=== PATIENT | female | born 1945 | race Caucasian/White ===

== ENCOUNTER 2016-11-01 10:58 | Inpatient (IN) | payer MEDICARE, OTHER ==
[~2016-11-01] VITALS: Ht 162.6 cm; Wt 80.1 kg
[~2016-11-01 10:58] MED LIST: ACET-703 PO; ALPR0.5T3 PO; ARMO60TA PO; BUDE2SUS4 NEB; BUPR100T4 PO; ESTR1DIS2 T-DERMAL; HYDR-3111 PO; IPRAAER INH; MONT10TA4 PO; OXYGEN NAS.CANULA; PRED5TAB PO; TEMA15CA PO; TRAM50TA PO; XOLA150S SQ
[2016-11-01 11:00] VITALS: BP 96/50; PULSE 74; RESP 14; TEMP 98.1; O2SAT 91
[2016-11-01] MEDS ORDERED: LEVOTAB PO (11:17)
[2016-11-01] MEDS ORDERED: oxygen INH (11:17)
[2016-11-01] MEDS ORDERED: MECL1TAB42 PO (11:17)
[2016-11-01] MEDS ORDERED: ALBUAER3 INH (11:17)
[2016-11-01] MEDS ORDERED: ARMO120T PO (11:17)
[2016-11-01] MEDS ORDERED: LIBRAX PO (11:17)
[2016-11-01] MEDS ORDERED: ONDA4TAB6 PO (11:17)
[2016-11-01] MEDS ORDERED: MORPHINE SULFATE 4 MG/ML INJ IV PUSH ONE ×2 (11:30→13:15)
[2016-11-01] MEDS ORDERED: SODIUM CHLORIDE 0.9% FLUSH 5 ML FLUSH IVF PRN (11:30)
--- NOTE | 2016-11-01 11:33 | PD ---
HPI Chief Complaint: Back/ Neck Pain or Injury Time Seen by Provider: 11:14 Travel History International Travel<30 days: No Contact w/Intl Traveler<30days: No Traveled to known affect area: No History of Present Illness HPI 71-year-old female with history of pulmonary fibrosis on home O2, osteoarthritis with neck and lumbar spine surgeries, brought in by private vehicle for evaluation of neck and low back pain after a fall that occurred this morning. The patient reports that her left leg gave out on her. She landed striking her right neck and lower back. She denies head injury or LOC. She is not on any antiplatelets or anticoagulants. No paresthesias or motor deficits. Pain is moderate, constant, worse with movement and palpation. No pain in any other joint or extremity. The patient is refusing cervical collar. Patient reports having a cough which was treated with antibiotics, however is persistent. No chest pain. PFSH Past Medical History Asthma: Yes Cancer: No Cardiovascular Problems: Yes COPD: Yes Diabetes: No Endocrine: No Gastrointestinal Disorders: Yes (reflux) Genitourinary: No Hepatitis: No Hiatal Hernia: Yes Hypertension: Yes Immune Disorder: No Medical other: Yes (hemochromotosis) Musculoskeletal: Yes (neck) Neurologic: Yes (mild numbness and tingling in both upper extremities) Psychiatric: No Reproductive: No Respiratory: Yes Thyroid Disease: No Past Surgical History Abdominal Surgery: Yes (lap flor hernia repair ) Appendectomy: Yes Body Medical Devices: lower back and neck Gynecologic Surgery: Yes (complete hysterectomy) Hysterectomy: Yes Neurologic Surgery: Yes (97'C4-5 ANTERIOR FUSION;99' C6-7 ANTERIOR FUSION, lumbar fusion) Oral Surgery: Yes (90' LEFT SALIVARY GLAND REMOVED ; SINSUS SX) Pacemaker: No Thoracic Surgery: Yes (kailyn mastitis which was drained) Other Surgery: Yes (breast reduction) Social History Alcohol Use: Yes (daily) Tobacco Use: No Substance Use: No Allergies-Medications (Allergen,Severity, Reaction): Coded Allergies: Betadine (Verified Allergy, Mild, Rash, 09/25/16) Uncoded Allergies: IODINE PAINT (Allergy, Severe, Rash, 06/30/12) Reported Meds & Prescriptions Reported Meds & Active Scripts Active Reported Proair Hfa 8.5 GM Inh (Albuterol Sulfate) 90 Mcg/Act Aer 1 Puff INH Q4H PRN 108 mcg/actuation Meclizine 25 (Meclizine HCl) 25 Mg Tab 1 Tab PO TID Ondansetron HCl 4 Mg Tab 1 Tab PO DAILY Librax (Chlordiazepoxide/Clidinium) 5-2.5 Mg Cap 1 Cap PO DAILY PRN [oxygen] 1 Inhaler INH DAILY Levocetirizine 5 Mg Tab 5 Mg PO DAILY [place] Thyroid (Thyroid) 120 Mg Tab 120 Mg PO DAILY Alprazolam 0.5 Mg Tab 0.5 Mg PO BID PRN Budesonide Neb 1 Mg/2 Ml Neb 0.5 Mg NEB BID Bupropion HCl 100 Mg Tab 150 Mg PO BID Combivent Respimat Inh (Ipratropium-Albuterol Inh) 20-100 Assisted/Act Aero 1 Puff INH BID Estradiol Patch 84 HR (Estradiol) 0.1 Mg/24 Hr Patch 1 Patch T-DERMAL Q7D PRN Remove old patch and discard when new patch being placed.Change same days each week. Vicodin (Hydrocodone-Acetaminophen) 5-300 Mg Tab 2 Tab PO Q6H PRN Montelukast (Montelukast Sodium) 10 Mg Tab 10 Mg PO HS Xolair Inj (Omalizumab) 150 Mg Vial 150 Mg SQ MONTHLY Prednisone 5 Mg Tab 5-10 Mg PO DAILY PRN Temazepam 15 Mg Cap 15 Mg PO HS PRN Tramadol (Tramadol HCl) 50 Mg Tab 50 Mg PO Q6H PRN Review of Systems Except as stated in HPI: all other systems reviewed are Neg Physical Exam Narrative GENERAL: Well-developed, well-nourished, awake, alert, no acute distress, GCS 15. SKIN: Warm and dry. Ecchymosis to right posterior neck. No lacerations or abrasions. HEAD: Atraumatic. Normocephalic. EYES: Pupils equal, round, 3 mm, reactive to light. EOMI. No scleral icterus. No injection or drainage. ENT: Mucous membranes pink and moist. NECK: Trachea midline. No JVD. There is midline cervical spine tenderness without obvious step-off. CARDIOVASCULAR: Regular rate and rhythm. Distal pulses brisk and equal bilaterally. RESPIRATORY: No accessory muscle use. Clear to auscultation. Breath sounds equal bilaterally. GASTROINTESTINAL: Abdomen soft, non-tender, nondistended. MUSCULOSKELETAL: No obvious deformities. No clubbing. No cyanosis. No edema. Normal range of motion in all joints and extremities with tenderness to right posterior lateral neck with ecchymosis. There is also lumbar spine tenderness without obvious step-off. The rest of her joints and extremities are without deformity, without tenderness, with normal range of motion. NEUROLOGICAL: Awake and alert. No obvious cranial nerve deficits. Motor grossly within normal limits. Normal speech. No focal deficits. PSYCHIATRIC: Appropriate mood and affect; insight and judgment normal. Data Data Last Documented VS Vital Signs Date Time Temp Pulse Resp B/P Pulse Ox O2 Delivery O2 Flow Rate FiO2 11/01/16 13:00 77 16 119/66 99 Nasal Cannula 2 11/01/16 11:00 98.1 Orders Basic Metabolic Panel (Bmp) (11/01/16 11:25) Complete Blood Count With Diff (11/01/16 11:25) Prothrombin Time / Inr (Pt) (11/01/16 11:25) Act Partial Throm Time (Ptt) (11/01/16 11:25) Iv Access Insert/Monitor (11/01/16 11:25) Ecg Monitoring (11/01/16 11:25) Oximetry (11/01/16 11:25) Sodium Chloride 0.9% Flush (Ns Flush) (11/01/16 11:30) Chest, Single Ap (11/01/16 ) Shoulder, Complete (>2vws) (11/01/16 ) Ct Brain W/O Iv Contrast(Rout) (11/01/16 ) Ct Cerv Spine W/O Contrast (11/01/16 ) Ct Thor Spine W/O Contrast (11/01/16 ) Ct Lumb Spine W/O Contrast (11/01/16 ) Influenzae A/B Antigen (11/01/16 11:25) Morphine Inj (Morphine Inj) (11/01/16 11:30) Apply Cervical Collar (11/01/16 12:52) Morphine Inj (Morphine Inj) (11/01/16 13:15) Consult Neurosurgery (11/01/16 ) (Hub Use Only)Inp Phy Cons/Ref (11/01/16 ) Labs Laboratory Tests Test 11/01/16 11:32 White Blood Count 8.3 TH/MM3 Red Blood Count 4.23 MIL/MM3 Hemoglobin 14.1 GM/DL Hematocrit 41.4 % Mean Corpuscular Volume 97.7 FL Mean Corpuscular Hemoglobin 33.4 PG Mean Corpuscular Hemoglobin 34.2 % Concent Red Cell Distribution Width 13.2 % Platelet Count 231 TH/MM3 Mean Platelet Volume 7.5 FL Neutrophils (%) (Auto) 52.3 % Lymphocytes (%) (Auto) 35.8 % Monocytes (%) (Auto) 9.6 % Eosinophils (%) (Auto) 1.9 % Basophils (%) (Auto) 0.4 % Neutrophils # (Auto) 4.3 TH/MM3 Lymphocytes # (Auto) 3.0 TH/MM3 Monocytes # (Auto) 0.8 TH/MM3 Eosinophils # (Auto) 0.2 TH/MM3 Basophils # (Auto) 0.0 TH/MM3 CBC Comment DIFF FINAL Differential Comment Prothrombin Time 10.1 SEC Prothromb Time International 0.9 RATIO Ratio Activated Partial 25.4 SEC Thromboplast Time Sodium Level 137 MEQ/L Potassium Level 3.4 MEQ/L Chloride Level 101 MEQ/L Carbon Dioxide Level 27.9 MEQ/L Anion Gap 8 MEQ/L Blood Urea Nitrogen 7 MG/DL Creatinine 0.74 MG/DL Estimat Glomerular Filtration 78 ML/MIN Rate Random Glucose 98 MG/DL Calcium Level 8.4 MG/DL [facility] Medical Decision Making Medical Screen Exam Complete: Yes Emergency Medical Condition: Yes Medical Record Reviewed: Yes Differential Diagnosis Spinal injury, intracranial trauma, contusion, mechanical fall Narrative Course Vital signs show heart rate 74, blood pressure 96/50, pulse ox 91% on room air, oral temp of 98.1F. CBC is unremarkable. BMP is essentially unremarkable. Influenza is negative. I was called by reading radiologist and informed that the patient has a C7 fracture. Patient was agreeable to cervical Mesa collar after this reading. CT head read as normal exam. CT cervical spine: CONCLUSION: There are oblique fractures through the base of the pedicles of both sides of the C7 vertebral body. There is also a comminuted fracture involving the inferior end plate of T1 which is not significantly displaced only loosing 10% of its original vertebral body height. The C7 fractures extend into the facet joints superiorly and the right side of the facet may be perched on the fracture. The C6 lamina is slightly anterior to the majority of the facet joint. CT thoracic spine: CONCLUSION: Comminuted fracture involving the anterior inferior endplate of T1 with approximately 10-20% loss of height. CT lumbar spine: CONCLUSION: Questionable fracture through the very anterior osteophyte associated with a Schmorl's node of the L2 vertebral body on the right. Previous fusion from L4 to S1 without complications . Case discussed with on-call orthopedic surgeon Dr. Torres who is covering for Dr. Voss. He discussed findings with Dr. Voss and prefers neurosurgery to be consulted regarding C7 fracture. Case discussed with on-call neurosurgeon Dr. Bowden. He will see the patient in consultation. Patient will be admitted for pain control. He agrees with current management with Mesa collar. The patient and the patient's were made aware of all findings and plan for admission. Case discussed with hospitalist Dr. Smiley who will admit the patient to his service. Diagnosis Primary Impression: C7 cervical fracture Qualified Code: S12.690A - Other closed displaced fracture of seventh cervical vertebra, initial encounter Additional Impressions: T1 vertebral fracture Qualified Code: S22.018A - Other closed fracture of first thoracic vertebra, initial encounter Fall Qualified Code: W19.XXXA - Fall, initial encounter Admitting Information Admitting Physician Requests: Admit Tomy Garcia MD Nov 01, 2016 11:33
[2016-11-01 11:49] LABS: AUTOMATED NEUTROPHIL # 4.3 TH/MM3 (1.8-7.7); BASOPHIL % 0.4 % (0.0-2.0); EOSINOPHIL # 0.2 TH/MM3 (0-0.4); EOSINOPHIL % 1.9 % (0.0-4.0); HEMATOCRIT 41.4 % (35.0-46.0); HEMO FLAGS DIFF FINAL; LYMPH % 35.8 % (9.0-44.0); MEAN CELL VOLUME 97.7 FL (80.0-100.0); MEAN CORPUSCULAR HEMOGLOBIN 33.4 PG (27.0-34.0); MEAN CORPUSCULAR HGB CONC 34.2 % (32.0-36.0); MONO % 9.6 % (0.0-8.0); NEUT % 52.3 % (16.0-70.0); PLATELET COUNT 231 TH/MM3 (150-450); RED BLOOD COUNT 4.23 MIL/MM3 (4.00-5.30); RED CELL DISTRIBUTION WIDTH 13.2 % (11.6-17.2); WHITE BLOOD COUNT 8.3 TH/MM3 (4.0-11.0)
[2016-11-01 11:58] LABS: APTT (PATIENT) 25.4 SEC (24.3-30.1); INTERNATIONAL NORMALIZED RATIO 0.9 RATIO; PROTHROMBIN TIME - PATIENT 10.1 SEC (9.8-11.6)
--- NOTE | 2016-11-01 12:02 | RADRPT ---
EXAM DATE/TIME: 11/01/2016 11:44 [facility] COMPARISON: No previous studies available for comparison. INDICATIONS : Right shoulder pain from fall. MEDICAL HISTORY : None. SURGICAL HISTORY : None. ENCOUNTER: Initial ACUITY: 1 day PAIN SCORE: 3/10 LOCATION: Right shoulder. FINDINGS: Multiple view examination of the right shoulder demonstrates no evidence of fracture or dislocation. The glenohumeral and acromioclavicular joints are maintained. There is normal range of motion betwe en internal and external rotation. Bony mineralization is normal. CONCLUSION: Unremarkable examination of the right shoulder. Favio Becerril MD on November 01, 2016 at 12:00 Board Certified Radiologist. This report was verified electronically.
[2016-11-01 12:04] LABS: BICARBONATE 27.9 MEQ/L (21.0-32.0); POTASSIUM 3.4 MEQ/L (3.5-5.1)
--- NOTE | 2016-11-01 12:05 | RADRPT ---
EXAM DATE/TIME: 11/01/2016 11:50 [facility] COMPARISON: No previous studies available for comparison. INDICATIONS : Cephalgia, fell on tile floor. RADIATION DOSE: 56.35 CTDIvol (mGy) MEDICAL HISTORY : None SURGICAL HISTORY : Fusion, cervical. Fusion, lumbar. ENCOUNTER: Initial ACUITY: 1 day PAIN SCALE: 5/10 LOCATION: cranial TECHNIQUE: Multiple contiguous axial images were obtained of the head. Using automated exposure control and adj ustment of the mA and/or kV according to patient size, radiation dose was kept as low as reasonably a chievable to obtain optimal diagnostic quality images. FINDINGS: CEREBRUM: The ventricles are normal for age. No evidence of midline shift, mass lesion, hemorrhage or acute in farction. No extra-axial fluid collections are seen. POSTERIOR FOSSA: The cerebellum and brainstem are intact. The 4th ventricle is midline. The cerebellopontine angle i s unremarkable. EXTRACRANIAL: The visualized portion of the orbits is intact. SKULL: The calvaria is intact. No evidence of skull fracture. CONCLUSION: Normal examination. Favio Becerril MD on November 01, 2016 at 12:03 Board Certified Radiologist. This report was verified electronically.
--- NOTE | 2016-11-01 12:08 | RADRPT ---
EXAM DATE/TIME: 11/01/2016 11:48 [facility] COMPARISON: Prior study 10/16/2014 used for comparison. INDICATIONS : Shortness of breath. MEDICAL HISTORY : Chronic obstructive pulmonary disease. SURGICAL HISTORY : None. ENCOUNTER: Initial ACUITY: 1 day PAIN SCORE: 0/10 LOCATION: Bilateral chest FINDINGS: A single view of the chest demonstrates there are patchy interstitial infiltrates throughout the lung s, stable form the previous study. Central line has been removed. The patient has previous cervical fusion. CONCLUSION: PATCHY INTERSTITIAL DISEASE THROUGHOUT THE LUNGS. NO PNEUMOTHORAX. Favio Becerril MD on November 01, 2016 at 12:02 Board Certified Radiologist. This report was verified electronically.
--- NOTE | 2016-11-01 12:54 | RADRPT ---
EXAM DATE/TIME: 11/01/2016 11:55 [facility] COMPARISON: No previous studies available for comparison. INDICATIONS : Fell on tile floor, upper back pain. RADIATION DOSE: 18.40 CTDIvol (mGy) ; Combined studies MEDICAL HISTORY : None SURGICAL HISTORY : Fusion, cervical. Fusion, lumbar. ENCOUNTER: Initial ACUITY: 1 day PAIN SCALE: 5/10 LOCATION: upper chest TECHNIQUE: Volumetric scanning of the thoracic spine was performed. Multiplanar reconstructions in the sagittal , coronal and oblique axial planes were performed. Using automated exposure control and adjustment o f the mA and/or kV according to patient size, radiation dose was kept as low as reasonably achievable to obtain optimal diagnostic quality images. FINDINGS: The vertebral bodies of the thoracic spine are in normal alignment without evidence of subluxation. Vertebral body height is maintained. Slightly comminuted inferior plate fracture of L. T1 anteriorly. T1-T2: THERE IS A MILDLY COMMINUTED FRACTURE INVOLVING THE INFERIOR ENDPLATE OF T1. T2-T3: The thecal sac has a normal diameter. No evidence of disc bulge or protrusion. T3-T4: The thecal sac has a normal diameter. No evidence of disc bulge or protrusion. T4-T5: The thecal sac has a normal diameter. No evidence of disc bulge or protrusion. T5-T6: The thecal sac has a normal diameter. No evidence of disc bulge or protrusion. T6-T7: The thecal sac has a normal diameter. No evidence of disc bulge or protrusion. T7-T8: The thecal sac has a normal diameter. No evidence of disc bulge or protrusion. T8-T9: The thecal sac has a normal diameter. No evidence of disc bulge or protrusion. T9-T10: The thecal sac has a normal diameter. No evidence of disc bulge or protrusion. T10-T11: The thecal sac has a normal diameter. No evidence of disc bulge or protrusion. T11-T12: The thecal sac has a normal diameter. No evidence of disc bulge or protrusion. T12-L1: The thecal sac has a normal diameter. No evidence of disc bulge or protrusion. CONCLUSION: Comminuted fracture involving the anterior inferior endplate of T1 with approximately 10-20% loss of height. Favio Becerril MD on November 01, 2016 at 12:52 Board Certified Radiologist. This report was verified electronically.
--- NOTE | 2016-11-01 12:59 | RADRPT ---
EXAM DATE/TIME: 11/01/2016 11:55 [facility] COMPARISON: No previous studies available for comparison. INDICATIONS : Fell on tile floor, lower back pain. Trauma. RADIATION DOSE: 18.40 CTDIvol (mGy) ; Combined studies MEDICAL HISTORY : None SURGICAL HISTORY : Fusion, cervical. Fusion, lumbar. ENCOUNTER: Initial ACUITY: 1 day PAIN SCALE: 5/10 LOCATION: lower back TECHNIQUE: Volumetric scanning of the lumbar spine was performed. Multiplanar reconstructions in the sagittal, coronal and oblique axial planes were performed. Using automated exposure control and adjustment of the mA and/or kV according to patient size, radiation dose was kept as low as reasonably achievable t o obtain optimal diagnostic quality images. FINDINGS: CT scan of the lumbar spine demonstrates there is some loss of height of the superior end plate of L2 on the right. It is associated with a Schmorl's node but there is some lucencies involving the promi nent anterior osteophyte that could be a non-displaced fracture. Posteriorly the vertebral end plate s is intact. The patient has had previous fusion from L4 to L5. There is a large intervertebral cag e at L5-S1 without complication. Coronal formats again show fusion from L4 to S1 without evidence of end plate fracture. There is a m ild leftward lumbar scoliosis. The prevertebral soft tissues are normal. CONCLUSION: Questionable fracture through the very anterior osteophyte associated with a Schmorl's node of the L2 vertebral body on the right. Previous fusion from L4 to S1 without complications . Favio Becerril MD on November 01, 2016 at 12:45 Board Certified Radiologist. This report was verified electronically.
[2016-11-01 13:00] VITALS: BP 119/66; PULSE 77; RESP 16; O2SAT 99
--- NOTE | 2016-11-01 13:15 | RADRPT ---
EXAM DATE/TIME: 11/01/2016 11:52 [facility] COMPARISON: No previous studies available for comparison. INDICATIONS : Fell on tile floor. Neck pain. Trauma. RADIATION DOSE: 36.73 CTDIvol (mGy) MEDICAL HISTORY : None SURGICAL HISTORY : Fusion, cervical. Fusion, lumbar. ENCOUNTER: Initial ACUITY: 1 day PAIN SCALE: 5/10 LOCATION: neck TECHNIQUE: Volumetric scanning of the cervical spine was performed. Multiplanar reconstructions in the sagittal, coronal and oblique axial planes were performed. Using automated exposure control and adjustment o f the mA and/or kV according to patient size, radiation dose was kept as low as reasonably achievable to obtain optimal diagnostic quality images. FINDINGS: CT scan of the cervical spine demonstrates the patient has had previous anterior cervical plates plac ed at C4-C5 and C6-C7. C5-C6 was previously fused. There is straightening of the cervical spine wit h just minimal anterior spondylolisthesis of C3 on C4 and C4 on C5. There are transverse fractures involving the base of the pedicles of the C7 vertebral body bilaterall y. They are non-displaced. There is a fracture involving the inferior end plate of T1. Thecal sac and cord normal shape and diameter. The fracture on the right side extends into the facet joint. CONCLUSION: There are oblique fractures through the base of the pedicles of both sides of the C7 vertebral body. There is also a comminuted fracture involving the inferior end plate of T1 which is not significantl y displaced only loosing 10% of its original vertebral body height. The C7 fractures extend into the facet joints superiorly and the right side of the facet may be perched on the fracture. The C6 lami na is slightly anterior to the majority of the facet joint. Favio Becerril MD on November 01, 2016 at 12:43 Board Certified Radiologist. This report was verified electronically.
[2016-11-01 15:00] VITALS: BP 130/69; PULSE 83; RESP 16; O2SAT 98
[2016-11-01] MEDS ORDERED: NALOXONE HCL 0.4 MG/ML AMP IV PRN (15:15)
[2016-11-01] MEDS ORDERED: MAGNESIUM HYDROXIDE SUSP 30 ML CUP PO PRN (15:15)
[2016-11-01] MEDS ORDERED: ONDANSETRON HCL 4 MG/2 ML VIAL IVP PRN (15:15)
[2016-11-01] MEDS ORDERED: SODIUM CHLORIDE 0.9% FLUSH 5 ML FLUSH FLUSH PRN (15:15)
[2016-11-01] MEDS ORDERED: chlordiazePOXIDE/CLIDINIUM 5 MG/2.5 MG CAP PO PRN (15:15)
[2016-11-01] MEDS ORDERED: ALPRAZolam 0.5 MG TAB PO PRN (15:15)
[2016-11-01] MEDS ORDERED: ALBUTEROL SULFATE 90 MCG/ACT HFA 8 GM INHALER INH PRN (15:15)
--- NOTE | 2016-11-01 15:17 | HHI.HP ---
cc: Kandy Smart MD [facility] Kandy Smart MD Admission Diagnosis C7 fracture, T1 fracture, fall Diagnoses: (1) Fall (2) C7 cervical fracture (3) T1 vertebral fracture (4) Cervical spondylosis (5) Lumbar spondylosis Chief Complaint: Fall Travel History International Travel<30 Days: No Contact w/Intl Traveler <30 Da: No Traveled to Known Affected Are: No History of Present Illness Hillary is a 71-year-old female who presented to the emergency department with pain in her neck and back following a fall that occurred at her home. She states that she was carrying her breakfast from one room to another and her right leg "gave out". She states that it has done this before. She did not feel lightheaded prior to falling. She does not know if she hit her head. She does not believe that she lost consciousness, but does not remember for sure. She has pain in her neck and back, which are worsened from her chronic neck and back pain. She has some weakness in her right arm and leg. No headache or blurred vision. No chest pain or dyspnea. Review of Systems Constitutional: DENIES: Fever, Chills, Night Sweats Eyes: DENIES: Blurred vision, Vision loss Ears, nose, mouth, throat: DENIES: Hearing loss Respiratory: DENIES: Cough, Wheezing, Sputum production, Shortness of breath Cardiovascular: DENIES: Chest pain, Palpitations, Dyspnea on Exertion, Lower Extremity Edema Gastrointestinal: DENIES: Abdominal pain, Constipation, Diarrhea, Nausea, Vomiting Genitourinary: DENIES: Urinary frequency, Urinary incontinence, Urgency, Hematuria, Dysuria, Nocturia Musculoskeletal: COMPLAINS OF: Joint pain, Back pain, Neck pain, DENIES: Muscle aches Integumentary: DENIES: Pruritus, Rash Hematologic/lymphatic: DENIES: Bruising Neurologic: DENIES: Headache, Paresthesias Past Family Social History Past Medical History Asthma Pulmonary fibrosis GERD Hemochromatosis Past Surgical History Tonsillectomy Cholecystectomy Lumbar spine surgery Cervical spine surgery Hysterectomy Left salivary gland surgery Breast reduction Reported Medications Proair Hfa 8.5 GM Inh (Albuterol Sulfate) 90 Mcg/Act Aer 1 Puff INH Q4H PRN 108 mcg/actuation Meclizine 25 (Meclizine HCl) 25 Mg Tab 1 Tab PO TID Ondansetron HCl 4 Mg Tab 1 Tab PO DAILY Librax (Chlordiazepoxide/Clidinium) 5-2.5 Mg Cap 1 Cap PO DAILY PRN [oxygen] 1 Inhaler INH DAILY Levocetirizine 5 Mg Tab 5 Mg PO DAILY [place] Thyroid (Thyroid) 120 Mg Tab 120 Mg PO DAILY Alprazolam 0.5 Mg Tab 0.5 Mg PO BID PRN Budesonide Neb 1 Mg/2 Ml Neb 0.5 Mg NEB BID Bupropion HCl 100 Mg Tab 150 Mg PO BID Combivent Respimat Inh (Ipratropium-Albuterol Inh) 20-100 Skilled Nursing/Act Aero 1 Puff INH BID Estradiol Patch 84 HR (Estradiol) 0.1 Mg/24 Hr Patch 1 Patch T-DERMAL Q7D PRN Remove old patch and discard when new patch being placed.Change same days each week. Vicodin (Hydrocodone-Acetaminophen) 5-300 Mg Tab 2 Tab PO Q6H PRN Montelukast (Montelukast Sodium) 10 Mg Tab 10 Mg PO HS Xolair Inj (Omalizumab) 150 Mg Vial 150 Mg SQ MONTHLY Prednisone 5 Mg Tab 5-10 Mg PO DAILY PRN Temazepam 15 Mg Cap 15 Mg PO HS PRN Tramadol (Tramadol HCl) 50 Mg Tab 50 Mg PO Q6H PRN Allergies: Coded Allergies: Betadine (Verified Allergy, Mild, Rash, 09/25/16) Uncoded Allergies: IODINE PAINT (Allergy, Severe, Rash, 06/30/12) Family History Denies Social History Denies tobacco or illicit drug use. Drinks 1 glass of wine daily. Physical Exam Vital Signs Vital Signs Date Time Temp Pulse Resp B/P Pulse Ox O2 Delivery O2 Flow Rate FiO2 11/01/16 15:00 83 16 130/69 98 Nasal Cannula 2 11/01/16 13:00 77 16 119/66 99 Nasal Cannula 2 11/01/16 11:10 97 Nasal Cannula 2 11/01/16 11:00 98.1 74 14 96/50 91 Physical Exam GENERAL: Well-nourished, well-developed female in no acute distress. In cervical collar. HEENT: Normocephalic, atraumatic. Pupils equal, round and reactive. Extraocular movements intact. No scleral icterus. No injection or drainage. Oropharynx is clear. Mucous membranes are moist. CARDIOVASCULAR: Regular rate and rhythm without murmurs, gallops, or rubs. RESPIRATORY: Clear to auscultation. No wheezes, rales, or rhonchi. Breathing is non-labored. GASTROINTESTINAL: Abdomen soft, non-tender, nondistended. EXTREMITIES: No lower extremity edema. No calf tenderness. PSYCH: Alert and oriented x 3. Laboratory Laboratory Tests Test 11/01/16 11:32 White Blood Count 8.3 Red Blood Count 4.23 Hemoglobin 14.1 Hematocrit 41.4 Mean Corpuscular Volume 97.7 Mean Corpuscular Hemoglobin 33.4 Mean Corpuscular Hemoglobin 34.2 Concent Red Cell Distribution Width 13.2 Platelet Count 231 Mean Platelet Volume 7.5 Neutrophils (%) (Auto) 52.3 Lymphocytes (%) (Auto) 35.8 Monocytes (%) (Auto) 9.6 Eosinophils (%) (Auto) 1.9 Basophils (%) (Auto) 0.4 Neutrophils # (Auto) 4.3 Lymphocytes # (Auto) 3.0 Monocytes # (Auto) 0.8 Eosinophils # (Auto) 0.2 Basophils # (Auto) 0.0 CBC Comment DIFF FINAL Differential Comment Prothrombin Time 10.1 Prothromb Time International 0.9 Ratio Activated Partial 25.4 Thromboplast Time Sodium Level 137 Potassium Level 3.4 Chloride Level 101 Carbon Dioxide Level 27.9 Anion Gap 8 Blood Urea Nitrogen 7 Creatinine 0.74 Estimat Glomerular Filtration 78 Rate Random Glucose 98 Calcium Level 8.4 Date/Time Procedure Status Source Growth 11/01/16 11:35 Influenza Types A,B Antigen (NGUYỄN) - Final Complete Nasal Washing NEGATIVE FOR FLU A AND B ANTIGEN.... Result Diagram: 11/01/16 1132 11/01/16 1132 Assessment and Plan Assessment and Plan 1. C7 and T1 fractures: Neurosurgery consult. Continue cervical collar. Continue pain control. Bedrest. 2. Pulmonary fibrosis, asthma: Continue home inhalers. Oxygen as needed. Consider pulmonology consult. 3. Hypothyroidism: Continue [place] Thyroid. 4. Anxiety/depression: Continue alprazolam, Wellbutrin. 5. DVT prophylaxis: SCDs, TIMOTHY ott. Avoid chemical prophylaxis secondary to possible surgical intervention. Problem Qualifiers (1) Fall: Qualified Code: W19.XXXA - Fall, initial encounter (2) C7 cervical fracture: Qualified Code: S12.690A - Other closed displaced fracture of seventh cervical vertebra, initial encounter (3) T1 vertebral fracture: Qualified Code: S22.018A - Other closed fracture of first thoracic vertebra, initial encounter Royer Smiley MD Nov 01, 2016 15:17
[2016-11-01] MEDS ORDERED: PILL SPLITTER OTHER PRN (15:30)
[2016-11-01 16:00] VITALS: BP 130/67; PULSE 86; RESP 18; TEMP 97.8; O2SAT 95
[2016-11-01] MEDS ORDERED: POTASSIUM CHLORIDE 20 MEQ CONTROLLED RELEASE TAB PO ONE (16:00)
[2016-11-01] MEDS: MORPHINE SULFATE 4 MG/ML INJ IV PRN ×2 (16:32→20:14)
[2016-11-01] MEDS: MECLIZINE HCL 25 MG TAB PO SCH (16:33)
[2016-11-01] MEDS ORDERED: ESTRADIOL 0.1 MG/24 HR PATCH T-DERMAL SCH (17:00)
[2016-11-01] MEDS: ALBUTEROL SULFATE 90 MCG/ACT HFA 8 GM INHALER INH SCH ×2 (18:40→20:14)
--- NOTE | 2016-11-01 20:12 | MB ---
cc: MEREDITH MOLINA MD, ROHIT K. M.D. DATE OF CONSULTATION 11/01/2016 REASON FOR CONSULTATION C7 - T1 fracture. HISTORY OF THE PRESENT ILLNESS A 71-year-old female who apparently tripped and fell this morning when her leg gave out on her, striking the right side of her neck and lower back and head with questionable loss of consciousness. The patient is somewhat amnestic of the event and the patient's is here who is a retired [employer] MEMBER. She has chronic low back pain along with radiculopathy has had two lumbar spine surgeries, the last one undertaken by Dr. Garay at L4-5 level fusion which she says were not successful and previously she had surgery L5-S1 level which was successful as well as two cervical spine surgeries involving anterior C4-5 and another one at C6-7 fusion with plate placement. She has had chronic weakness in the right upper extremity with intermittent paresthesias and numbness which is chronic. Her neck pain at this point radiates into the shoulders and is new and she has chronic low back pain exacerbated by this fall also. Workup included CT scan of the complete spine which reveals T1 moderate vertebral body compression fracture which is comminuted with a slight buckling posteriorly mostly ventrally. There is also involvement of the C7 bilateral pedicles which are fractured as well as the right facet. There is a C6-7 interbody fusion with anterior cervical plate in place, as well as C4-5 fusion with anterior cervical plate in place, and a possible C5-C6 level also being fused. CT of the thoracic spine does not reveal any fractures other than the T1 fracture visualized on the cervical spine also. CT of the lumbar spine reveals an L4-S1 fusion interbody and L4-L5 pedicle screws. There is also L2 endplate Schmorl's node with possible anterior superior osteophyte fracture with some vertebral body height loss and sclerosis. A CT scan of the head is negative for any intracranial acute abnormality. PAST MEDICAL HISTORY 1. Pulmonary fibrosis. 2. Asthma. 3. Gastroesophageal reflux with a repair of hiatal hernia. 4. Hemochromatosis. 5. 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 Mccall from neurology. 6. Anterior cervical fusion with plate placement at C4-C5 and C6-C7 levels. 7. Lumbar spine fusion at L4-L5 level. 8. And also remote L5-S1 interbody. 9. Breast reduction. 10. Hysterectomy. 11. Left salivary gland surgery. 12. Tonsillectomy. 13. Cholecystectomy. MEDICATIONS PRIOR TO ADMISSION 1. Proventil inhaler q.4h p.r.n. 2. Alprazolam 0.5 mg b.i.d. p.r.n. 3. Budesonide nebulizer twice a day. 4. Bupropion 150 milligrams twice a day. 5. Librax one daily p.r.n. 6. Estradiol patch q.7 days. 7. Vicodin 5/300 two tablets q.6h as needed. 8. Combivent inhaler twice a day. 9. Levocetirizine 5 milligrams daily. 10. Meclizine 25 milligrams three times a day. 11. Montelukast 10 milligrams q.h.s. 12. Xolair 150 milligrams subcutaneous monthly. 13. Zofran 4 milligrams daily. 14. Prednisone 5-10 milligrams daily. 15. Temazepam 50 milligrams q.h.s. as needed. 16. [place] thyroid 125 milligrams daily. 17. Tramadol 50 milligrams q.6h as needed. 18. She is also on oxygen at home. ALLERGIES BETADINE/IODINE. SOCIAL HISTORY Denies . Drinks a glass of wine on a daily basis. 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 REVIEW OF SYSTEMS Pertinent positives as mentioned in the history of present illness. With acute neck pain, chronic low back pain with exacerbation. No positive loss of consciousness, with amnesia with a fall. A chronic numbness and paresthesias in the upper extremities with weakness in the right upper extremity in particular. Low back pain with sciatica and right leg which gives out on her every few weeks at times. Chronic dyspnea related to pulmonary fibrosis. No chest pain, abdominal pain. Chronic nausea. No fevers or chills. No incontinence, history of easy bleeding or bruising. LABORATORY FINDINGS White blood cell count 8.3, hemoglobin 14.1, platelet count 231. PT 10.1, INR 0.9, PTT 25.4. Sodium 137, potassium 3.4, BUN 7, creatinine 0.74, glucose 98. PHYSICAL EXAMINATION VITAL SIGNS: Temperature 98.1, pulse is 83, respiratory rate 16, blood pressure 130/69, ox saturation 98% on 2 liters nasal cannula. HEAD: No [place] or raccoon sign. NECK: Maintained in a [place] collar. CHEST: Clear to auscultation bilaterally. CARDIOVASCULAR: Regular rate rhythm, normal S1-S2. ABDOMEN: Soft, nontender. EXTREMITIES: No cyanosis or edema or deformity. NEUROLOGICAL: Awake, alert. Cranial nerves grossly intact. Motor strength overall is 5/5 in the upper and lower extremities. Negative Babinski. Appreciates light touch sensation bilaterally. Speech is fluent. IMPRESSION 1. T1 vertebral body comminuted fracture with slight buckling posteriorly and mild to moderate vertebral body height collapse. There is also bilateral C7 pedicle fracture extending to the right facet. Remote history of anterior C6-C7 and C4-C5 fusion with plate placement. 2. L2 anterior superior endplate osteophyte. There is vertebral body fracture with associated Schmorl's node and some vertebral body height loss which appears to be chronic. She has previous L4-S1 interbody and posterolateral fusion, pedicle screws in place. She has chronic low back pain with sciatica, undergoing interventional pain management by Dr. Alexis. 3. Pulmonary fibrosis / asthma with home oxygen use. PLAN The patient will be maintained in a hard cervical collar. An MRI scan of the cervical and lumbar spine will be obtained to evaluate for any stenosis or associated soft tissue / ligamentous disruption. DVT prophylaxis with sequential compression devices and also encourage incentive spirometry to prevent atelectasis and pneumonia. Further treatment plan will be delineated once the MRI scan of the cervical and lumbar spine has been undertaken and reviewed. I have discussed this at length with the patient and her who understand and are in agreement. MD FRANCES Abraham/TERRI /3:49 PM /7:06 PM
[2016-11-01] MEDS: SODIUM CHLORIDE 0.9% FLUSH 5 ML FLUSH FLUSH SCH (20:15)
[2016-11-01] MEDS: MONTELUKAST SODIUM 10 MG TAB PO SCH (20:15)
[2016-11-01 20:25] VITALS: BP 130/61; PULSE 101; RESP 17; TEMP 97.4; O2SAT 92
[2016-11-01] MEDS: buPROPion HCL 100 MG TAB PO SCH (20:40)
[2016-11-01] MEDS ORDERED: BUDESONIDE 1 MG/2 ML NEB SCH (21:00)
[2016-11-01] MEDS ORDERED: NON-FORMULARY DRUG (Ipratropium-Albuterol Inh (Combivent Respimat Inh) 1 PUFF) INH SCH (21:00)
[2016-11-01] MEDS: TEMAZEPAM 15 MG CAP PO PRN (22:44)
[2016-11-02] VITALS (8 sets, daily range): BP systolic 121–149; BP diastolic 67–82; PULSE 93–108; RESP 17–18; TEMP 96–101.4; O2SAT 92–95
[2016-11-02 06:30] LABS: ANION GAP 7 MEQ/L (5-15); AST (GOT) 46 U/L (15-37); BICARBONATE 26.9 MEQ/L (21.0-32.0); BLOOD UREA NITROGEN 8 MG/DL (7-18); CHLORIDE 102 MEQ/L (98-107); GLOMERULAR FILTRATION RATE 80 ML/MIN (>89); SODIUM (NA) 136 MEQ/L (136-145)
[2016-11-02 06:33] LABS: ALKALINE PHOSPHATASE 80 U/L (45-117); ALT (GPT) 40 U/L (10-53); TOTAL BILIRUBIN ADULT 0.5 MG/DL (0.2-1.0)
--- NOTE | 2016-11-02 08:49 | HHI.NSPN ---
(Tha Serrano) History Chief Complaint: Neck and low back pain. (Tha Serrano) Interval History A 71-year-old female who apparently tripped and fell this morning when her leg gave out on her, striking the right side of her neck and lower back and head with questionable loss of consciousness. 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 She has chronic low back pain along with radiculopathy has had two lumbar spine surgeries, the last one undertaken by Dr. Garay at L4-5 level fusion which she says were not successful and previously she had surgery L5-S1 level which was successful as well as two cervical spine surgeries involving anterior C4-5 and another one at C6-7 fusion with plate placement. She has had chronic weakness in the right upper extremity with intermittent paresthesias and numbness which is chronic. Her neck pain at this point radiates into the shoulders and is new and she has chronic low back pain exacerbated by this fall also. Workup included CT scan of the complete spine which reveals T1 moderate vertebral body compression fracture which is comminuted with a slight buckling posteriorly mostly ventrally. There is also involvement of the C7 bilateral pedicles which are fractured as well as the right facet. There is a C6-7 interbody fusion with anterior cervical plate in place, as well as C4-5 fusion with anterior cervical plate in place, and a possible C5-C6 level also being fused. CT of the thoracic spine does not reveal any fractures other than the T1 fracture visualized on the cervical spine also. CT of the lumbar spine reveals an L4-S1 fusion interbody and L4-L5 pedicle screws. There is also L2 endplate Schmorl's node with possible anterior superior osteophyte fracture with some vertebral body height loss and sclerosis. A CT scan of the head is negative for any intracranial acute abnormality. 11/02/16: Pt awake and alert. Complains of neck, right trapezius, and low back pain. No radiculopathy or paresthesias in the UEs or LEs. (Tha Serrano) Review of Systems General: Negative for: fever, chills, insomnia Respiratory: Negative for: shortness of breath, cough, sputum Cardiovascular: Negative for: chest pain Gastrointestinal: Negative for: nausea, vomitting, diarrhea, constipation ( Tha Serrano) Exam Results Vital Signs Date Time Temp Pulse Resp B/P Pulse Ox O2 Delivery O2 Flow Rate FiO2 11/02/16 04:20 96.0 100 17 134/80 94 11/01/16 15:00 Nasal Cannula 2 Intake and Output 11/01/16 11/01/16 11/01/16 07:59 15:59 23:59 Intake Total 240 ml Balance 240 ml (Tha Serrano) Physical Examination Resp: CTA bilaterally Heart: NRS no murmurs Abd: Soft positive bs Skin: No cyanosis or erythema Muscle: Moves all 4 extremities with good strength. [place] cervical collar in place. Neuro: Pt awake and alert. Follows commands well. Speech clear and appropriate. Pupils equal. (Tha Serrano) Lab, Micro, Other Results Last Impressions Thoracic Spine CT 11/01/16 0000 Signed Impressions: Service Date/Time: Tuesday, November 01, 2016 11:55 - CONCLUSION: Comminuted fracture involving the anterior inferior endplate of T1 with approximately 10-20%% loss of height. Favio Becerril MD Shoulder X-Ray 11/01/16 0000 Signed Impressions: Service Date/Time: Tuesday, November 01, 2016 11:44 - CONCLUSION: Unremarkable examination of the right shoulder. Favio Becerril MD Lumbar Spine CT 11/01/16 0000 Signed Impressions: Service Date/Time: Tuesday, November 01, 2016 11:55 - CONCLUSION: Questionable fracture through the very anterior osteophyte associated with a Schmorl's node of the L2 vertebral body on the right. Previous fusion from L4 to S1 without complications . Favio Becerril MD Head CT 11/01/16 0000 Signed Impressions: Service Date/Time: Tuesday, November 01, 2016 11:50 - CONCLUSION: Normal examination. Favio Becerril MD Chest X-Ray 11/01/16 0000 Signed Impressions: Service Date/Time: Tuesday, November 01, 2016 11:48 - CONCLUSION: PATCHY INTERSTITIAL DISEASE THROUGHOUT THE LUNGS. NO PNEUMOTHORAX. Favio Becerril MD Cervical Spine CT 11/01/16 0000 Signed Impressions: Service Date/Time: Tuesday, November 01, 2016 11:52 - CONCLUSION: There are oblique fractures through the base of the pedicles of both sides of the C7 vertebral body. There is also a comminuted fracture involving the inferior end plate of T1 which is not significantly displaced only loosing 10%% of its original vertebral body height. The C7 fractures extend into the facet joints superiorly and the right side of the facet may be perched on the fracture. The C6 lamina is slightly anterior to the majority of the facet joint. Favio Becerril MD Laboratory Tests Test 11/01/16 11/02/16 11:32 05:10 White Blood Count 8.3 TH/MM3 Red Blood Count 4.23 MIL/MM3 Hemoglobin 14.1 GM/DL Hematocrit 41.4 % Mean Corpuscular Volume 97.7 FL Mean Corpuscular Hemoglobin 33.4 PG Mean Corpuscular Hemoglobin 34.2 % Concent Red Cell Distribution Width 13.2 % Platelet Count 231 TH/MM3 Mean Platelet Volume 7.5 FL Neutrophils (%) (Auto) 52.3 % Lymphocytes (%) (Auto) 35.8 % Monocytes (%) (Auto) 9.6 % Eosinophils (%) (Auto) 1.9 % Basophils (%) (Auto) 0.4 % Neutrophils # (Auto) 4.3 TH/MM3 Lymphocytes # (Auto) 3.0 TH/MM3 Monocytes # (Auto) 0.8 TH/MM3 Eosinophils # (Auto) 0.2 TH/MM3 Basophils # (Auto) 0.0 TH/MM3 CBC Comment DIFF FINAL Differential Comment Prothrombin Time 10.1 SEC Prothromb Time International 0.9 RATIO Ratio Activated Partial 25.4 SEC Thromboplast Time Sodium Level 137 MEQ/L 136 MEQ/L Potassium Level 3.4 MEQ/L 4.0 MEQ/L Chloride Level 101 MEQ/L 102 MEQ/L Carbon Dioxide Level 27.9 MEQ/L 26.9 MEQ/L Anion Gap 8 MEQ/L 7 MEQ/L Blood Urea Nitrogen 7 MG/DL 8 MG/DL Creatinine 0.74 MG/DL 0.72 MG/DL Estimat Glomerular Filtration 78 ML/MIN 80 ML/MIN Rate Random Glucose 98 MG/DL 101 MG/DL Calcium Level 8.4 MG/DL 8.7 MG/DL Total Bilirubin 0.5 MG/DL Aspartate Amino Transf 46 U/L (AST/SGOT) Alanine Aminotransferase 40 U/L (ALT/SGPT) Alkaline Phosphatase 80 U/L Total Protein 6.3 GM/DL Albumin 3.2 GM/DL 11/01/16 11/01/16 11/02/16 14:59 22:59 06:59 Intake Total 240 ml Balance 240 ml Intake Oral 240 ml # Voids 1 # Bowel Movements 0 (Tha Serrano) Lab, Micro, Other Results Last 24 hours Impressions Lumbar Spine MRI 11/02/16 0600 Signed Impressions: Service Date/Time: Wednesday, November 02, 2016 11:14 - CONCLUSION: 1. Postsurgical changes with transpedicular bilateral posterior fixation at L4-5 and an intervertebral disc prosthesis at L5-S1. Minimal grade I anterolisthesis of L4 on 5. 2. There is some loss of height to the right side of the L2 superior end plate associated with a regional Schmorl's node. There is some bony edema which may be due to the Schmorl's node itself although a subacute fracture through the superior end plate cannot be excluded. I am concerned there may be a small avulsion off the spur associated with anterior longitudinal ligament as well. 3. Multilevel facet arthrosis/hypertrophy at L1-2, L3-4 and L4-l5. Despite degenerative changes, I believe the spinal canal and neural foraminal are adequate at all lumbar levels. Cal Davis MD Cervical Spine MRI 11/02/16 0600 Signed Impressions: Service Date/Time: Wednesday, November 02, 2016 11:14 - CONCLUSION: 1. Postsurgical changes as above. 2. Degenerative disc disease above the fusion at C3-C4 without stenosis. No acute findings. Federico Hopson MD (Syed Bowden MD) Medical Decision Making Impression and Plan A: 71 y/o FM with a T1 vertebral body comminuted fracture with slight buckling posteriorly and mild to moderate vertebral body height collapse. There is also bilateral C7 pedicle fracture extending to the right facet. Remote history of anterior C6-C7 and C4-C5 fusion with plate placement. 2. L2 anterior superior endplate osteophyte. There is vertebral body fracture with associated Schmorl's node and some vertebral body height loss which appears to be chronic. She has previous L4-S1 interbody and posterolateral fusion, pedicle screws in place. She has chronic low back pain with sciatica, undergoing interventional pain management by Dr. Alexis. 3. Pulmonary fibrosis / asthma with home oxygen use. P: MRI of the cervical and Lumbar spine. Will discuss further treatment when scans complete. Continue with pain control. continue with cervical collar. (Tha Serrano) Attending Statement The exam, history, and the medical decision-making described in the above note were completed with the assistance of the mid-level provider. I reviewed and agree with the findings presented. I attest that I had a [id number] encounter with the patient on the same day, and personally performed and documented my assessment and findings in the medical record. Complains of neck pain and headaches. Right upper extremity paresthesias and numbness in the C6 dermatome. MRI scan cervical and lumbar spine review does not reveal any obvious soft tissue injury or ligamentous disruption or stenosis. Recommend cervical collar to be worn at all times the next 4 months with x-rays every 6 weeks to assess fracture healing. Out of bed to with physical therapy safety evaluation. Discussed with the at bedside. (Syed Bowden MD) Tha Serrano Nov 02, 2016 08:49 Syed Bowden MD Nov 02, 2016 16:16
[2016-11-02] MEDS: ALBUTEROL SULFATE 90 MCG/ACT HFA 8 GM INHALER INH SCH ×2 (08:56→13:00)
[2016-11-02] MEDS: TIOTROPIUM BROMIDE 18 MCG INH INH SCH (08:57)
[2016-11-02] MEDS: THYROID 60 MG TAB PO SCH (08:58)
[2016-11-02] MEDS: buPROPion HCL 100 MG TAB PO SCH ×2 (08:58→20:35)
[2016-11-02] MEDS: MECLIZINE HCL 25 MG TAB PO SCH ×3 (08:58→18:39)
[2016-11-02] MEDS: SODIUM CHLORIDE 0.9% FLUSH 5 ML FLUSH FLUSH SCH ×2 (08:59→20:35)
[2016-11-02] MEDS ORDERED: NON-FORMULARY DRUG (Levocetirizine 5 MG) PO SCH (09:00)
[2016-11-02] MEDS ORDERED: OXYGEN INH SCH (09:00)
[2016-11-02] MEDS: MORPHINE SULFATE 4 MG/ML INJ IV PRN (09:05)
--- NOTE | 2016-11-02 12:07 | RADRPT ---
EXAM DATE/TIME: 11/02/2016 11:14 [place] COMPARISON: No previous studies available for comparison. INDICATIONS : Pain. Neck and right shoulder pain after fall. MEDICAL HISTORY : None. SURGICAL HISTORY : Fusion, cervical. Fusion, lumbar. Cholecystectomy. Hysterectomy. Hernia repair. Breast reduction. [place] ivary gland removal. Cataracts. Dental implants. ENCOUNTER: Subsequent ACUITY: 2 day PAIN SCORE: 8/10 LOCATION: neck TECHNIQUE: Multiplanar, multisequence MRI examination of the cervical spine was performed. FINDINGS: Sagittal images demonstrate normal vertebral body alignment and curvature. No focal areas of marrow r eplacement are identified. The craniocervical junction appears normal. The cord itself is normal in c aliber and signal intensity. Axial images were performed from C2-3 through C7-T1. There is anterior c ervical fusion with a plate anteriorly from C4-C7. C2-C3: No significant abnormalities identified. C3-C4: There is mild diffuse annular bulge of the disc. The neural foramina are clear bilaterally. There is no significant spinal canal stenosis. C4-C5: Postsurgical changes as above. There is no significant spinal canal stenosis. C5-C6: No significant abnormalities identified. C6-C7: No significant abnormalities identified. C7-T1: There is no significant spinal canal stenosis. The neural foramina are clear bilaterally. CONCLUSION: 1. Postsurgical changes as above. 2. Degenerative disc disease above the fusion at C3-C4 without stenosis. No acute findings. Federico Hopson MD on November 02, 2016 at 12:02 Board Certified Radiologist. This report was verified electronically.
--- NOTE | 2016-11-02 13:03 | RADRPT ---
EXAM DATE/TIME: 11/02/2016 11:14 [facility] COMPARISON: CT LUMBAR SPINE W/O CONTRAST, November 01, 2016, 11:55. INDICATIONS: Pain. Lower back pain after fall. MEDICAL HISTORY: None. SURGICAL HISTORY: Fusion, cervical. Fusion, lumbar. Cholecystectomy. Hysterectomy. Hernia repair. Breast reduction. Dillon ivary gland removal. Cataracts. Dental implants. ENCOUNTER: Subsequent ACUITY: 2 day PAIN SCORE: 8/10 LOCATION: Lower back. TECHNIQUE: Multiplanar multisequence MRI of the lumbar spine was performed without contrast. FINDINGS: The sagittal T1, T2 and inversion recovery images show transpedicular bilateral posterior fixation at L4-5 with a minimal grade I anterolisthesis of L4 on 5. There is intervertebral disc prostheses at L5-S1. As noted on the prior CT, there is some loss of height from the right side of the superior en d plate of L2. There does appear to be a regional Schmorl's node but there is some slight increased inversion recovery and diminished T1 signal intensity suggesting bony edema. While this may be relat ed to the Schmorl's node, I cannot exclude a subacute fracture to this region. As noted on the prior CT, there may be a slight avulsion fracture to the anterior longitudinal ligament and associated spu r at the L2 vertebral body in this region as well. Vertebral body heights are otherwise well maintai grace at all remaining levels. There is a mild levoscoliosis of the lumbar spine. Detailed axial imag es as follows: T12-L1: The thecal sac has a normal diameter. No evidence of disc bulge or protrusion. The neural foramina are patent bilaterally. L1-L2: Diffuse disc bulge but the spinal canal and neural foramina are patent. There is also some facet art hrosis. L2-L3: The thecal sac has a normal diameter. No evidence of disc bulge or protrusion. The neural foramina are patent bilaterally. L3-L4: Facet hypertrophy with minimal encroachment on the spinal canal. Both the spinal canal and neural fo ramina remain adequate. L4-L5: Facet hypertrophy particularly on the left. While there is some encroachment on the spinal canal, th e spinal canal and neural foramina remain adequate. L5-S1: Intervertebral disc prostheses but the spinal canal and neural foramina remain patent. CONCLUSION: 1. Postsurgical changes with transpedicular bilateral posterior fixation at L4-5 and an intervertebr al disc prosthesis at L5-S1. Minimal grade I anterolisthesis of L4 on 5. 2. There is some loss of height to the right side of the L2 superior end plate associated with a reg ional Schmorl's node. There is some bony edema which may be due to the Schmorl's node itself althoug h a subacute fracture through the superior end plate cannot be excluded. I am concerned there may be a small avulsion off the spur associated with anterior longitudinal ligament as well. 3. Multilevel facet arthrosis/hypertrophy at L1-2, L3-4 and L4-l5. Despite degenerative changes, I believe the spinal canal and neural foraminal are adequate at all lumbar levels. Cal Davis MD Board Certified Radiologist. This report was verified electronically.
--- NOTE | 2016-11-02 14:26 | HHI.PR ---
Subjective Remarks Follow-up for C7 and T1 fractures, pain control. Patient reports significant headache in the occipital region. Still having neck and back pain as well. No other complaints at this time. Denies chest pain, dyspnea, nausea, vomiting, diarrhea, constipation. Objective Vitals Vital Signs Date Time Temp Pulse Resp B/P Pulse Ox O2 Delivery O2 Flow Rate FiO2 11/02/16 08:00 100.0 99 18 131/71 94 11/02/16 04:20 96.0 100 17 134/80 94 11/02/16 00:30 99.7 97 17 121/67 92 11/01/16 20:25 97.4 101 17 130/61 92 11/01/16 16:00 97.8 86 18 130/67 95 11/01/16 15:00 83 16 130/69 98 Nasal Cannula 2 I/O 11/01/16 11/01/16 11/01/16 11/02/16 11/02/16 11/02/16 07:00 15:00 23:00 07:00 15:00 23:00 Intake Total 240 ml 240 ml Balance 240 ml 240 ml Intake Oral 240 ml 240 ml # Voids 1 0 # Bowel Movements 0 0 Result Diagram: 11/01/16 1132 11/02/16 0510 Imaging Last Impressions Cervical Spine MRI 11/02/16 0600 Signed Impressions: Service Date/Time: Wednesday, November 02, 2016 11:14 - CONCLUSION: 1. Postsurgical changes as above. 2. Degenerative disc disease above the fusion at C3-C4 without stenosis. No acute findings. Federico Hopson MD Thoracic Spine CT 11/01/16 0000 Signed Impressions: Service Date/Time: Tuesday, November 01, 2016 11:55 - CONCLUSION: Comminuted fracture involving the anterior inferior endplate of T1 with approximately 10-20%% loss of height. Favio Becerril MD Shoulder X-Ray 11/01/16 0000 Signed Impressions: Service Date/Time: Tuesday, November 01, 2016 11:44 - CONCLUSION: Unremarkable examination of the right shoulder. Favio Becerril MD Lumbar Spine CT 11/01/16 0000 Signed Impressions: Service Date/Time: Tuesday, November 01, 2016 11:55 - CONCLUSION: Questionable fracture through the very anterior osteophyte associated with a Schmorl's node of the L2 vertebral body on the right. Previous fusion from L4 to S1 without complications . Favio Becerril MD Head CT 11/01/16 0000 Signed Impressions: Service Date/Time: Tuesday, November 01, 2016 11:50 - CONCLUSION: Normal examination. Favio Becerril MD Chest X-Ray 11/01/16 0000 Signed Impressions: Service Date/Time: Tuesday, November 01, 2016 11:48 - CONCLUSION: PATCHY INTERSTITIAL DISEASE THROUGHOUT THE LUNGS. NO PNEUMOTHORAX. Favio Becerril MD Cervical Spine CT 11/01/16 0000 Signed Impressions: Service Date/Time: Tuesday, November 01, 2016 11:52 - CONCLUSION: There are oblique fractures through the base of the pedicles of both sides of the C7 vertebral body. There is also a comminuted fracture involving the inferior end plate of T1 which is not significantly displaced only loosing 10%% of its original vertebral body height. The C7 fractures extend into the facet joints superiorly and the right side of the facet may be perched on the fracture. The C6 lamina is slightly anterior to the majority of the facet joint. Favio Becerril MD Objective Remarks General: No acute distress. In cervical collar. Heart: Regular rate and rhythm. No murmur. Lungs: Clear to auscultation bilaterally. No wheezes, rales, or rhonchi. Breathing is nonlabored. Abdomen: Soft, nontender, nondistended. Extremities: No lower extremity edema. Psych: Alert and oriented. Urinary Catheter: No Vascular Central Line Catheter: No A/P Problem List: (1) Fall ICD Code: W19.XXXA Status: Acute (2) C7 cervical fracture ICD Code: S12.600A Status: Acute (3) T1 vertebral fracture ICD Code: S22.019A Status: Acute (4) Cervical spondylosis ICD Code: M47.812 Status: Acute (5) Lumbar spondylosis ICD Code: M47.816 Status: Acute Assessment and Plan 1. C7 and T1 fractures: Continue cervical collar. Continue pain control, oxycodone as needed with morphine for breakthrough. Bedrest. Appreciate neurosurgery recommendations. MRI results noted. 2. Pulmonary fibrosis, asthma: Continue home inhalers. Oxygen as needed. Consider pulmonology consult if symptoms worsen. 3. Hypothyroidism: Continue [place] Thyroid. 4. Anxiety/depression: Continue alprazolam, Wellbutrin. 5. DVT prophylaxis: SCDs, TIMOTHY hose. Avoid chemical prophylaxis secondary to possible surgical intervention. Problem Qualifiers (1) Fall: Qualified Code: W19.XXXA - Fall, initial encounter (2) C7 cervical fracture: Qualified Code: S12.690A - Other closed displaced fracture of seventh cervical vertebra, initial encounter (3) T1 vertebral fracture: Qualified Code: S22.018A - Other closed fracture of first thoracic vertebra, initial encounter Royer Smiley MD Nov 02, 2016 14:26
[2016-11-02] MEDS ORDERED: RESP: ALBUTEROL 2.5 MG/3 ML NEB (PRN) NEB (14:45)
[2016-11-02] MEDS: ACETAMINOPHEN 325 MG TAB PO PRN (18:39)
[2016-11-02] MEDS: MONTELUKAST SODIUM 10 MG TAB PO SCH (20:35)
[2016-11-02] MEDS: cefTRIAXone INJ 1,000 MG in SODIUM CHLORIDE 0.9% INJ 100 ML IV SCH (22:31)
[2016-11-02 22:35] LABS: BACTERIA, URINE RARE /hpf; BLOOD, URINE SMALL (NEG); COMMENT (UR) CULT NOT INDICATED; CULTURE IF INDICATED CULT NOT INDICATED; GLUCOSE,URINE NEG (NEG); KETONE, URINE TRACE mg/dL (NEG); MUCUS URINE FEW /lpf (OCC); NITRITE,URINE NEG (NEG); PH, URINE 6.5 (5.0-8.5); SQUAMOUS EPITHELIAL CELL URINE 13 /hpf (0-5); URINE COLOR YELLOW (YELLW/STRAW)
[2016-11-02] MEDS: AZITHROMYCIN INJ 500 MG in SODIUM CHLOR 0.9% 250 ML INJ 250 ML IV SCH (23:33)
[2016-11-03] VITALS (8 sets, daily range): BP systolic 85–179; BP diastolic 68–99; PULSE 90–121; RESP 17–20; TEMP 96.2–101.6; O2SAT 93–96
[2016-11-03] MEDS: MORPHINE SULFATE 4 MG/ML INJ IV PRN ×2 (01:55→13:29)
--- NOTE | 2016-11-03 06:23 | RADRPT ---
EXAM DATE/TIME: 11/03/2016 05:25 [facility] COMPARISON: CHEST SINGLE AP, November 01, 2016, 11:48. INDICATIONS : Short of breath, evaluate pneumonia MEDICAL HISTORY : fracture C7, T1 SURGICAL HISTORY : cervical spine fusion ENCOUNTER: Subsequent ACUITY: 2 days PAIN SCORE: Non-responsive. LOCATION: Bilateral chest FINDINGS: Stable patchy interstitial thickening is unchanged. No evidence of alveolar consolidation or pleural effusion. Cardiomediastinal contours are stable. CONCLUSION: Stable chest. Jimmy Felton MD on November 03, 2016 at 6:20 Board Certified Radiologist. This report was verified electronically.
[2016-11-03] MEDS: ACETAMINOPHEN 325 MG TAB PO PRN ×2 (08:55→17:06)
[2016-11-03] MEDS: SODIUM CHLORIDE 0.9% FLUSH 5 ML FLUSH FLUSH SCH ×2 (08:55→21:20)
[2016-11-03] MEDS: THYROID 60 MG TAB PO SCH (08:56)
[2016-11-03] MEDS: MECLIZINE HCL 25 MG TAB PO SCH ×3 (08:57→17:06)
[2016-11-03] MEDS: buPROPion HCL 100 MG TAB PO SCH ×2 (08:57→21:19)
[2016-11-03] MEDS: TIOTROPIUM BROMIDE 18 MCG INH INH SCH (09:01)
--- NOTE | 2016-11-03 10:27 | HHI.NSPN ---
(Tha Serrano) History Chief Complaint: Neck and low back pain. (hTa Serrano) Interval History A 71-year-old female who apparently tripped and fell this morning when her leg gave out on her, striking the right side of her neck and lower back and head with questionable loss of consciousness. The patient is somewhat amnestic of the event and the patient's is here who is a retired [employer]. She has chronic low back pain along with radiculopathy has had two lumbar spine surgeries, the last one undertaken by Dr. Garay at L4-5 level fusion which she says were not successful and previously she had surgery L5-S1 level which was successful as well as two cervical spine surgeries involving anterior C4-5 and another one at C6-7 fusion with plate placement. She has had chronic weakness in the right upper extremity with intermittent paresthesias and numbness which is chronic. Her neck pain at this point radiates into the shoulders and is new and she has chronic low back pain exacerbated by this fall also. Workup included CT scan of the complete spine which reveals T1 moderate vertebral body compression fracture which is comminuted with a slight buckling posteriorly mostly ventrally. There is also involvement of the C7 bilateral pedicles which are fractured as well as the right facet. There is a C6-7 interbody fusion with anterior cervical plate in place, as well as C4-5 fusion with anterior cervical plate in place, and a possible C5-C6 level also being fused. CT of the thoracic spine does not reveal any fractures other than the T1 fracture visualized on the cervical spine also. CT of the lumbar spine reveals an L4-S1 fusion interbody and L4-L5 pedicle screws. There is also L2 endplate Schmorl's node with possible anterior superior osteophyte fracture with some vertebral body height loss and sclerosis. A CT scan of the head is negative for any intracranial acute abnormality. 11/02/16: Pt awake and alert. Complains of neck, right trapezius, and low back pain. No radiculopathy or paresthesias in the UEs or LEs. 11/03/16: Pt awake. She complains of neck pain and low back pain. She initially denies any pain or paresthesias in UEs but when asked specifically she does state she has pain and numbness in her right thumb. She denies any chest pain or sob. (Tha Serrano) Review of Systems General: Positive for: fever, Negative for: chills, insomnia Respiratory: Negative for: shortness of breath, cough, sputum Cardiovascular: Negative for: chest pain Gastrointestinal: Negative for: nausea, vomitting, diarrhea, constipation ( Tha Serrano) Exam Results Vital Signs Date Time Temp Pulse Resp B/P Pulse Ox O2 Delivery O2 Flow Rate FiO2 11/03/16 09:13 93 Nasal Cannula 3.00 11/03/16 04:25 98.5 100 17 149/85 Intake and Output 11/02/16 11/02/16 11/03/16 08:00 16:00 00:00 Intake Total 840 ml 360 ml Balance 840 ml 360 ml (Tha Serrano) Physical Examination Resp: CTA bilaterally. Pt on O2 via NC. Heart: NSR no murmurs Abd: Soft positive bs Skin: No cyanosis or erythema Muscle: Moves all 4 extremities with good strength. [place] cervical collar in place. Neuro: Pt awake and alert. Follows commands well. Speech clear and appropriate. Pupils equal. (Tha Serrano) Lab, Micro, Other Results Last Impressions Chest X-Ray 11/03/16 0600 Signed Impressions: Service Date/Time: Thursday, November 03, 2016 05:25 - CONCLUSION: Stable chest. Jimmy Felton MD Lumbar Spine MRI 11/02/16 0600 Signed Impressions: Service Date/Time: Wednesday, November 02, 2016 11:14 - CONCLUSION: 1. Postsurgical changes with transpedicular bilateral posterior fixation at L4-5 and an intervertebral disc prosthesis at L5-S1. Minimal grade I anterolisthesis of L4 on 5. 2. There is some loss of height to the right side of the L2 superior end plate associated with a regional Schmorl's node. There is some bony edema which may be due to the Schmorl's node itself although a subacute fracture through the superior end plate cannot be excluded. I am concerned there may be a small avulsion off the spur associated with anterior longitudinal ligament as well. 3. Multilevel facet arthrosis/hypertrophy at L1-2, L3-4 and L4-l5. Despite degenerative changes, I believe the spinal canal and neural foraminal are adequate at all lumbar levels. Cal Davis MD Cervical Spine MRI 11/02/16 0600 Signed Impressions: Service Date/Time: Wednesday, November 02, 2016 11:14 - CONCLUSION: 1. Postsurgical changes as above. 2. Degenerative disc disease above the fusion at C3-C4 without stenosis. No acute findings. Federico Hopson MD Thoracic Spine CT 11/01/16 0000 Signed Impressions: Service Date/Time: Tuesday, November 01, 2016 11:55 - CONCLUSION: Comminuted fracture involving the anterior inferior endplate of T1 with approximately 10-20%% loss of height. Favio Becerril MD Shoulder X-Ray 11/01/16 0000 Signed Impressions: Service Date/Time: Tuesday, November 01, 2016 11:44 - CONCLUSION: Unremarkable examination of the right shoulder. Favio Becerril MD Lumbar Spine CT 11/01/16 0000 Signed Impressions: Service Date/Time: Tuesday, November 01, 2016 11:55 - CONCLUSION: Questionable fracture through the very anterior osteophyte associated with a Schmorl's node of the L2 vertebral body on the right. Previous fusion from L4 to S1 without complications . Favio Becerril MD Head CT 11/01/16 0000 Signed Impressions: Service Date/Time: Tuesday, November 01, 2016 11:50 - CONCLUSION: Normal examination. Favio Becerril MD Cervical Spine CT 11/01/16 0000 Signed Impressions: Service Date/Time: Tuesday, November 01, 2016 11:52 - CONCLUSION: There are oblique fractures through the base of the pedicles of both sides of the C7 vertebral body. There is also a comminuted fracture involving the inferior end plate of T1 which is not significantly displaced only loosing 10%% of its original vertebral body height. The C7 fractures extend into the facet joints superiorly and the right side of the facet may be perched on the fracture. The C6 lamina is slightly anterior to the majority of the facet joint. Favio Becerril MD Laboratory Tests Test 11/02/16 22:10 Urine Color YELLOW Urine Turbidity HAZY Urine pH 6.5 Urine Specific [place] 1.017 Urine Protein NEG mg/dL Urine Glucose (UA) NEG mg/dL Urine Ketones TRACE mg/dL Urine Occult Blood SMALL Urine Nitrite NEG Urine Bilirubin NEG Urine Urobilinogen LESS THAN 2.0 MG/DL Urine Leukocyte Esterase NEG Urine RBC 15 /hpf Urine WBC 1 /hpf Urine Squamous Epithelial 13 /hpf Cells Urine Bacteria RARE /hpf Urine Mucus FEW /lpf Microscopic Urinalysis Comment CULT NOT INDICATED 11/02/16 11/02/16 11/03/16 15:00 23:00 07:00 Intake Total 840 ml 360 ml 360 ml Balance 840 ml 360 ml 360 ml Intake Oral 840 ml 360 ml 360 ml # Voids 4 1 3 # Bowel Movements 0 0 0 (Tha Serrano) Medical Decision Making Impression and Plan A: 71 y/o FM with a T1 vertebral body comminuted fracture with slight buckling posteriorly and mild to moderate vertebral body height collapse. There is also bilateral C7 pedicle fracture extending to the right facet. Remote history of anterior C6-C7 and C4-C5 fusion with plate placement. 2. L2 anterior superior endplate osteophyte. There is vertebral body fracture with associated Schmorl's node and some vertebral body height loss which appears to be chronic. She has previous L4-S1 interbody and posterolateral fusion, pedicle screws in place. She has chronic low back pain with sciatica, undergoing interventional pain management by Dr. Alexis. 3. Pulmonary fibrosis / asthma with home oxygen use. 4. Some spiking fever P: Continue with pain control. Continue with cervical collar. Encouraged incentive spirometry Updated at bedside who is a surgeon. (Tha Serrano) Attending Statement The exam, history, and the medical decision-making described in the above note were completed with the assistance of the mid-level provider. I reviewed and agree with the findings presented. I attest that I had a [id number] encounter with the patient on the same day, and personally performed and documented my assessment and findings in the medical record. Cleared for discharge from a neurosurgical standpoint. (Syed Bowden MD) Tha Serrano Nov 03, 2016 10:27 Syed Bowden MD Nov 03, 2016 17:26
--- NOTE | 2016-11-03 11:10 | HHI.PR ---
Subjective Remarks Follow-up fever. Headache has resolved. Denies chest pain. Still having neck and back pain, now affecting the left shoulder. Objective Vitals Vital Signs Date Time Temp Pulse Resp B/P Pulse Ox O2 Delivery O2 Flow Rate FiO2 11/03/16 09:13 93 Nasal Cannula 3.00 11/03/16 08:00 101.6 102 20 153/89 96 11/03/16 04:25 98.5 100 17 149/85 93 11/03/16 00:39 96.2 103 17 142/83 94 11/02/16 21:43 93 Nasal Cannula 3.00 11/02/16 20:45 101.1 108 18 149/82 93 11/02/16 18:39 101.4 11/02/16 16:00 100.5 100 18 147/79 92 11/02/16 12:00 99.8 93 18 132/82 95 I/O 11/02/16 11/02/16 11/02/16 11/03/16 11/03/16 11/03/16 07:00 15:00 23:00 07:00 15:00 23:00 Intake Total 840 ml 360 ml 360 ml Balance 840 ml 360 ml 360 ml Intake Oral 840 ml 360 ml 360 ml # Voids 4 1 3 # Bowel Movements 0 0 0 Result Diagram: 11/01/16 1132 11/02/16 0510 Imaging Last Impressions Chest X-Ray 11/03/16 06 Signed Impressions: Service Date/Time: Thursday, November 03, 2016 05:25 - CONCLUSION: Stable chest. Jimmy Felton MD Lumbar Spine MRI 11/02/16 06 Signed Impressions: Service Date/Time: Wednesday, November 02, 2016 11:14 - CONCLUSION: 1. Postsurgical changes with transpedicular bilateral posterior fixation at L4-5 and an intervertebral disc prosthesis at L5-S1. Minimal grade I anterolisthesis of L4 on 5. 2. There is some loss of height to the right side of the L2 superior end plate associated with a regional Schmorl's node. There is some bony edema which may be due to the Schmorl's node itself although a subacute fracture through the superior end plate cannot be excluded. I am concerned there may be a small avulsion off the spur associated with anterior longitudinal ligament as well. 3. Multilevel facet arthrosis/hypertrophy at L1-2, L3-4 and L4-l5. Despite degenerative changes, I believe the spinal canal and neural foraminal are adequate at all lumbar levels. Cal Davis MD Cervical Spine MRI 11/02/16 0600 Signed Impressions: Service Date/Time: Wednesday, November 02, 2016 11:14 - CONCLUSION: 1. Postsurgical changes as above. 2. Degenerative disc disease above the fusion at C3-C4 without stenosis. No acute findings. Federico Hopson MD Thoracic Spine CT 11/01/16 0000 Signed Impressions: Service Date/Time: Tuesday, November 01, 2016 11:55 - CONCLUSION: Comminuted fracture involving the anterior inferior endplate of T1 with approximately 10-20%% loss of height. Favio Becerril MD Shoulder X-Ray 11/01/16 0000 Signed Impressions: Service Date/Time: Tuesday, November 01, 2016 11:44 - CONCLUSION: Unremarkable examination of the right shoulder. Favio Becerril MD Lumbar Spine CT 11/01/16 0000 Signed Impressions: Service Date/Time: Tuesday, November 01, 2016 11:55 - CONCLUSION: Questionable fracture through the very anterior osteophyte associated with a Schmorl's node of the L2 vertebral body on the right. Previous fusion from L4 to S1 without complications . Favio Becerril MD Head CT 11/01/16 0000 Signed Impressions: Service Date/Time: Tuesday, November 01, 2016 11:50 - CONCLUSION: Normal examination. Favio Becerril MD Cervical Spine CT 11/01/16 0000 Signed Impressions: Service Date/Time: Tuesday, November 01, 2016 11:52 - CONCLUSION: There are oblique fractures through the base of the pedicles of both sides of the C7 vertebral body. There is also a comminuted fracture involving the inferior end plate of T1 which is not significantly displaced only loosing 10%% of its original vertebral body height. The C7 fractures extend into the facet joints superiorly and the right side of the facet may be perched on the fracture. The C6 lamina is slightly anterior to the majority of the facet joint. Favio Becerril MD Objective Remarks General: No acute distress. In cervical collar. Heart: Regular rate and rhythm. No murmur. Lungs: Scattered rhonchi. Breathing is nonlabored. Abdomen: Soft, nontender, nondistended. Extremities: No lower extremity edema. Psych: Alert and oriented. Urinary Catheter: No Vascular Central Line Catheter: No A/P Problem List: (1) Fall ICD Code: W19.XXXA Status: Acute (2) C7 cervical fracture ICD Code: S12.600A Status: Acute (3) T1 vertebral fracture ICD Code: S22.019A Status: Acute (4) Cervical spondylosis ICD Code: M47.812 Status: Acute (5) Lumbar spondylosis ICD Code: M47.816 Status: Acute Assessment and Plan 1. C7 and T1 fractures: Continue cervical collar. Continue pain control, oxycodone as needed with morphine for breakthrough. Bedrest. Appreciate neurosurgery recommendations. MRI results noted. 2. Pulmonary fibrosis, asthma: Continue home inhalers. Oxygen as needed. Consider pulmonology consult if symptoms worsen. 3. Hypothyroidism: Continue [place] Thyroid. 4. Anxiety/depression: Continue alprazolam, Wellbutrin. 5. DVT prophylaxis: SCDsTIMOTHY. Avoid chemical prophylaxis secondary to possible surgical intervention. 6. Fever: Urinalysis negative. Chest x-ray stable. Blood cultures are pending. Continue antibiotics. Problem Qualifiers (1) Fall: Qualified Code: W19.XXXA - Fall, initial encounter (2) C7 cervical fracture: Qualified Code: S12.690A - Other closed displaced fracture of seventh cervical vertebra, initial encounter (3) T1 vertebral fracture: Qualified Code: S22.018A - Other closed fracture of first thoracic vertebra, initial encounter Royer Smiley MD Nov 03, 2016 11:10
[2016-11-03] MEDS: MONTELUKAST SODIUM 10 MG TAB PO SCH (21:18)
[2016-11-03] MEDS: cefTRIAXone INJ 1,000 MG in SODIUM CHLORIDE 0.9% INJ 100 ML IV SCH (21:20)
[2016-11-03] MEDS: AZITHROMYCIN INJ 500 MG in SODIUM CHLOR 0.9% 250 ML INJ 250 ML IV SCH (21:20)
[2016-11-03] MEDS: TEMAZEPAM 15 MG CAP PO PRN (22:58)
[2016-11-04 00:46] VITALS: BP 148/91; PULSE 108; RESP 17; TEMP 96.6; O2SAT 97
[2016-11-04] MEDS: MORPHINE SULFATE 4 MG/ML INJ IV PRN (03:38)
[2016-11-04 04:06] VITALS: BP 133/81; PULSE 103; RESP 16; TEMP 97.3; O2SAT 96
[2016-11-04 06:52] LABS: AUTOMATED NEUTROPHIL # 4.5 TH/MM3 (1.8-7.7); BASOPHIL % 0.2 % (0.0-2.0); EOSINOPHIL % 0.1 % (0.0-4.0); HEMATOCRIT 41.1 % (35.0-46.0); HEMO FLAGS DIFF FINAL; LYMPH % 27.5 % (9.0-44.0); LYMPHOCYTE # 2.1 TH/MM3 (1.0-4.8); MEAN CORPUSCULAR HGB CONC 33.7 % (32.0-36.0); MONO % 11.5 % (0.0-8.0); NEUT % 60.7 % (16.0-70.0); PLATELET COUNT 163 TH/MM3 (150-450); RED CELL DISTRIBUTION WIDTH 13.3 % (11.6-17.2); WHITE BLOOD COUNT 7.5 TH/MM3 (4.0-11.0)
[2016-11-04 07:06] LABS: BICARBONATE 24.5 MEQ/L (21.0-32.0); POTASSIUM 3.4 MEQ/L (3.5-5.1)
[2016-11-04] MEDS: MECLIZINE HCL 25 MG TAB PO SCH (07:43)
[2016-11-04] MEDS: THYROID 60 MG TAB PO SCH (07:45)
[2016-11-04] MEDS: buPROPion HCL 100 MG TAB PO SCH (07:48)
[2016-11-04] MEDS: MONTELUKAST SODIUM 10 MG TAB PO SCH (07:49)
[2016-11-04 08:00] VITALS: BP 127/84; PULSE 100; RESP 18; TEMP 99.5; O2SAT 94
[2016-11-04] MEDS ORDERED: SODIUM CHLOR 0.9% 1000 ML INJ 1,000 ML IV SCH (09:30)
[2016-11-04] MEDS ORDERED: AZIT500T2 PO (09:53)
[2016-11-04] MEDS ORDERED: TRAM50TA PO (09:53)
[2016-11-04] MEDS ORDERED: CEFT500T3 PO (09:53)
[2016-11-04] MEDS ORDERED: HYDR-3111 PO (09:53)
--- NOTE | 2016-11-04 09:57 | HHI.DCPOC ---
Discharge Care Plan Diagnosis: (1) T1 vertebral fracture (2) C7 cervical fracture (3) Fall (4) Fever Goals to Promote Your Health * To prevent worsening of your condition and complications * To maintain your health at the optimal level Directions to Meet Your Goals Take your medications as prescribed Follow your dietary instruction Follow activity as directed Keep your appointments as scheduled Take your immunizations and boosters as scheduled If your symptoms worsen call your PCP, if no PCP go to Urgent Care Center or Emergency Room Smoking is Dangerous to Your Health. Avoid second hand smoke Call the 24-hour hour crisis hotline for domestic abuse at Rex Moreno DO Nov 04, 2016 09:57
--- NOTE | 2016-11-04 10:07 | HHI.DS ---
Discharge Summary Admission Date Nov 03, 2016 at 11:55 Discharge Date: Nov 04, 2016 Admitting Diagnosis C7 fracture, T1 fracture, fall (1) Fall ICD Code: W19.XXXA (2) C7 cervical fracture ICD Code: S12.600A Diagnosis: Principal (3) T1 vertebral fracture ICD Code: S22.019A Diagnosis: Principal (4) Cervical spondylosis ICD Code: M47.812 (5) Lumbar spondylosis ICD Code: M47.816 Procedures None. Brief History - From Admission Hillary is a 71-year-old female who presented to the emergency department with pain in her neck and back following a fall that occurred at her home. She states that she was carrying her breakfast from one room to another and her right leg "gave out". She states that it has done this before. She did not feel lightheaded prior to falling. She does not know if she hit her head. She does not believe that she lost consciousness, but does not remember for sure. She has pain in her neck and back, which are worsened from her chronic neck and back pain. She has some weakness in her right arm and leg. No headache or blurred vision. No chest pain or dyspnea. CBC/BMP: 11/04/16 0625 11/04/16 0625 Significant Findings Laboratory Tests Test 11/01/16 11/02/16 11/02/16 11/04/16 11:32 05:10 22:10 06:25 Monocytes (%) (Auto) 9.6 % (0.0-8.0) 11.5 % (0.0-8.0) Potassium Level 3.4 MEQ/L 3.4 MEQ/L (3.5-5.1) (3.5-5.1) Estimat Glomerular Filtration 78 ML/MIN (>89) 80 ML/MIN (>89) 73 ML/MIN (>89) Rate Calcium Level 8.4 MG/DL 8.2 MG/DL (8.5-10.1) (8.5-10.1) Aspartate Amino Transf 46 U/L (15-37) (AST/SGOT) Total Protein 6.3 GM/DL (6.4-8.2) Albumin 3.2 GM/DL (3.4-5.0) Urine Turbidity HAZY (CLEAR) Urine Ketones TRACE mg/dL (NEG) Urine Occult Blood SMALL (NEG) Urine RBC 15 /hpf (0-3) Urine Bacteria RARE /hpf (NONE) Urine Mucus FEW /lpf (OCC) Sodium Level 131 MEQ/L (136-145) Chloride Level 96 MEQ/L (98-107) Random Glucose 113 MG/DL (74-106) Imaging Last Impressions Chest X-Ray 11/03/16599 Signed Impressions: Service Date/Time: Thursday, November 03, 2016 05:25 - CONCLUSION: Stable chest. Jimmy Felton MD Lumbar Spine MRI 11/02/16599 Signed Impressions: Service Date/Time: Wednesday, November 02, 2016 11:14 - CONCLUSION: 1. Postsurgical changes with transpedicular bilateral posterior fixation at L4-5 and an intervertebral disc prosthesis at L5-S1. Minimal grade I anterolisthesis of L4 on 5. 2. There is some loss of height to the right side of the L2 superior end plate associated with a regional Schmorl's node. There is some bony edema which may be due to the Schmorl's node itself although a subacute fracture through the superior end plate cannot be excluded. I am concerned there may be a small avulsion off the spur associated with anterior longitudinal ligament as well. 3. Multilevel facet arthrosis/hypertrophy at L1-2, L3-4 and L4-l5. Despite degenerative changes, I believe the spinal canal and neural foraminal are adequate at all lumbar levels. Cal Davis MD Cervical Spine MRI 11/02/16599 Signed Impressions: Service Date/Time: Wednesday, November 02, 2016 11:14 - CONCLUSION: 1. Postsurgical changes as above. 2. Degenerative disc disease above the fusion at C3-C4 without stenosis. No acute findings. Federico Hopson MD Thoracic Spine CT 11/01/16 0000 Signed Impressions: Service Date/Time: Tuesday, November 01, 2016 11:55 - CONCLUSION: Comminuted fracture involving the anterior inferior endplate of T1 with approximately 10-20%% loss of height. Favio Becerril MD Shoulder X-Ray 11/01/16 Signed Impressions: Service Date/Time: Tuesday, November 01, 2016 11:44 - CONCLUSION: Unremarkable examination of the right shoulder. Favio Becerril MD Lumbar Spine CT 11/01/16 Signed Impressions: Service Date/Time: Tuesday, November 01, 2016 11:55 - CONCLUSION: Questionable fracture through the very anterior osteophyte associated with a Schmorl's node of the L2 vertebral body on the right. Previous fusion from L4 to S1 without complications . Favio Becerril MD Head CT 11/01/16 0000 Signed Impressions: Service Date/Time: Tuesday, November 01, 2016 11:50 - CONCLUSION: Normal examination. Favio Becerril MD Cervical Spine CT 11/01/16 Signed Impressions: Service Date/Time: Tuesday, November 01, 2016 11:52 - CONCLUSION: There are oblique fractures through the base of the pedicles of both sides of the C7 vertebral body. There is also a comminuted fracture involving the inferior end plate of T1 which is not significantly displaced only loosing 10%% of its original vertebral body height. The C7 fractures extend into the facet joints superiorly and the right side of the facet may be perched on the fracture. The C6 lamina is slightly anterior to the majority of the facet joint. Favio Becerril MD PE at Discharge General: No acute distress. In cervical collar. Heart: Regular rate and rhythm. No murmur. Lungs: Scattered rhonchi. Breathing is nonlabored. Abdomen: Soft, nontender, nondistended. Extremities: No lower extremity edema. Neuro: Alert and oriented. Psych: Mood and affect appropriate. Pt update on day of discharge The pt was resting in bed comfortably. Her was at the bedside. The pt said she had a headache in the back of her head. She has not noticed any fevers. She wanted to go home. She had no acute complaints. Hospital Course C7 and T1 fractures CT showed: Oblique fractures through the base of the pedicles of both sides of the C7 vertebral body; There is also a comminuted fracture involving the inferior end plate of T1 which is not significantly displaced only loosing 10%% of its original vertebral body height; The C7 fractures extend into the facet joints superiorly and the right side of the facet may be perched on the fracture; The C6 lamina is slightly anterior to the majority of the facet joint. Neurosurgery was consulted. The pt was continued on a cervical collar. We continued pain control with a bowel regimen. She worked with physical therapy. The pt and declined home health care PT and nursing. The pt said she has a rolling walker. She was cleared for discharge by NS and will follow up with them as an outpt. Pulmonary fibrosis/ asthma She was continued on home inhalers and received oxygen as needed. Fever Urinalysis negative, chest x-ray stable. Blood cultures NGTD. She denies sputum production. She had no leukocytosis. She was started on ceftriaxone and azithromycin and will complete a course of Ceftin and azithromycin upon discharge. She will seek medical attention if she starts to develop fevers at home. Pt Condition on Discharge: Fair Discharge Disposition: Discharge Home Discharge Time: > 30 minutes Discharge Instructions DIET: Follow Instructions for: As Tolerated, No Restrictions Activities you can perform: Weight Bearing as José Luis Follow up Referrals: Neurosurgery - 6 Weeks with Syed Bowden MD PCP Follow-up - 1 Week New Medications: Azithromycin (Azithromycin) 500 Mg Tab 500 MG PO DAILY Infection #3 Ref 0 TAB Cefuroxime (Ceftin) 500 Mg Tab 500 MG PO BID Infection #10 Ref 0 TAB Continued Medications: Albuterol 8.5 GM Inh (Proair Hfa 8.5 GM Inh) 90 Mcg/Act Aer 1 PUFF INH Q4H 108 mcg/actuation PRN SHORTNESS OF BREATH #1 Ref 0 INHALER Alprazolam (Alprazolam) 0.5 Mg Tab 0.5 MG PO BID PRN ANXIETY Ref 0 TAB Budesonide Neb (Budesonide Neb) 1 Mg/2 Ml Neb 0.5 MG NEB BID Breathing Treatment #30 Ref 0 NEBULE Bupropion HCl (Bupropion HCl) 100 Mg Tab 150 MG PO BID Control Depression Ref 0 TAB Chlordiazepoxide-Clidinium (Librax) 5-2.5 Mg Cap 1 CAP PO DAILY PRN SPASM #120 Ref 0 CAP Estradiol Patch 84 HR (Estradiol Patch 84 HR) 0.1 Mg/24 Hr Patch 1 PATCH T-DERMAL Q7D Remove old patch and discard when new patch being placed.Change same days each week. PRN DIRECTED #8 Ref 0 PATCH Hydrocodone-Acetaminophen (Vicodin) 5-300 Mg Tab 2 TAB PO Q6H PRN PAIN #14 Ref 0 TAB (This prescription has been renewed) Ipratropium-Albuterol Inh (Combivent Respimat Inh) 20-100 Shelter/Act Aero 1 PUFF INH BID Asthma Management #1 Ref 0 INHALER Levocetirizine (Levocetirizine) 5 Mg Tab 5 MG PO DAILY Allergy Management #30 Ref 0 TAB Meclizine HCl (Meclizine 25) 25 Mg Tab 1 TAB PO TID Montelukast (Montelukast) 10 Mg Tab 10 MG PO HS #30 Ref 0 TAB Omalizumab Inj (Xolair Inj) 150 Mg Vial 150 MG SQ MONTHLY #1 VIAL Ondansetron HCl (Ondansetron HCl) 4 Mg Tab 1 TAB PO DAILY Prednisone (Prednisone) 5 Mg Tab 5-10 MG PO DAILY PRN DIRECTED Ref 0 TAB Temazepam (Temazepam) 15 Mg Cap 15 MG PO HS PRN INSOMNIA #30 Ref 0 CAP Thyroid ([place] Thyroid) 120 Mg Tab 120 MG PO DAILY Thyroid Supplement #30 Ref 0 TAB Tramadol (Tramadol) 50 Mg Tab 50 MG PO Q6H PRN PAIN #15 Ref 0 TAB (This prescription has been renewed) ([oxygen]) 1 INHALER INH DAILY Rex Moreno DO Nov 04, 2016 10:07
[2016-11-04] MEDS ORDERED: SODIUM CHLOR 0.9% 1000 ML INJ 1,000 ML IV ONE (10:30)
[2016-11-04] MEDS ORDERED: POTASSIUM CHLORIDE 25 MEQ EFFERVESCENT TAB PO ONE (10:30)
[2016-11-04] MEDS ORDERED: DOCUSATE SODIUM 100 MG CAP PO SCH (21:00)
== END 2016-11-04 12:42 | disposition home or self-care (01) | DRG 552 ==
LOC: NEPA 10:58 → INTOOBSV 13:56 → NEDA 13:56 → N06B 15:54 → OBSVTOIN 11-03 11:55
PROVIDERS: ADMIT Hospitalist; ATTEND Hospitalist
DX: S12.600A Unspecified displaced fracture of seventh cervical vertebra, initial encounter for closed fracture (principal); S22.019A Unspecified fracture of first thoracic vertebra, initial encounter for closed fracture; J84.10 Pulmonary fibrosis, unspecified; M47.812 Spondylosis without myelopathy or radiculopathy, cervical region; M47.26 Other spondylosis with radiculopathy, lumbar region; M25.78 Osteophyte, vertebrae; M54.40 Lumbago with sciatica, unspecified side; G89.29 Other chronic pain; W01.0XXA Fall on same level from slipping, tripping and stumbling without subsequent striking against object, initial encounter; Z98.1 Arthrodesis status; J45.909 Unspecified asthma, uncomplicated; Z99.81 Dependence on supplemental oxygen; K21.9 Gastro-esophageal reflux disease without esophagitis; D18.09 Hemangioma of other sites; E83.119 Hemochromatosis, unspecified; R51 Headache; J44.9 Chronic obstructive pulmonary disease, unspecified; I10 Essential (primary) hypertension; K44.9 Diaphragmatic hernia without obstruction or gangrene
CPT/HCPCS: 70450; 71010; 72125; 72128; 72131; 72141; 72148; 73030; 80048; 80053; 81001; 83735; 85025; 85610; 85730; 87040; 87804; 96374; 96376; G0378; G8987-GP; G8988-GP; J0456; J0696; J2270; J7030; J7050; L0150; L0172

== ENCOUNTER 2016-11-04 21:40 | Inpatient (IN) | payer MEDICARE, OTHER ==
[~2016-11-04] VITALS: Ht 167.6 cm; Wt 77.2 kg
[~2016-11-04 21:40] MED LIST changes: -ACET-703 PO; +ALBUAER3 INH; +ARMO120T PO; -ARMO60TA PO; +AZIT500T2 PO; +CEFT500T3 PO; +LEVOTAB PO; +LIBRAX PO; +MECL1TAB42 PO; +ONDA4TAB6 PO; -OXYGEN NAS.CANULA; +oxygen INH
[2016-11-04 21:55] VITALS: BP 138/65; PULSE 111; RESP 24; TEMP 100.4; O2SAT 94
[2016-11-04 23:08] VITALS: BP 187/87; PULSE 110; RESP 20; O2SAT 97
[2016-11-04] MEDS ORDERED: SODIUM CHLOR 0.9% 1000 ML INJ 1,000 ML IV SCH (23:26)
[2016-11-04] MEDS ORDERED: SODIUM CHLORIDE 0.9% FLUSH 5 ML FLUSH IVF PRN (23:30)
--- NOTE | 2016-11-04 23:32 | PD ---
HPI Chief Complaint: General Weakness Time Seen by Provider: 23:13 Travel History International Travel<30 days: No Contact w/Intl Traveler<30days: No Traveled to known affect area: No History of Present Illness HPI The patient is a 8-year-old female who presents to the emergency department for increasing weakness. The patient states she tripped and fell yesterday, fracture the cervical vertebrae. The patient was evaluated in the hospital, admitted, subsequently discharged home. The patient declined home health care nurse and at that time. Patient was able to and bleed with a walker in the hospital. However, the patient was discharged home and is unable to ambulate. The patient fell twice at home and the had to unless the neighbors helped to lift the patient up off of the floor. The patient is unable to ambulate or get to the bathroom and is currently incontinent of urine , has a history of incontinence with coughing. The also states the patient has slightly altered mental status, fluctuating, according to the . PFSH Past Medical History Arthritis: Yes (neck/back) Asthma: Yes Cancer: No Cardiovascular Problems: Yes COPD: Yes Diabetes: No Endocrine: No Gastrointestinal Disorders: Yes (reflux) GERD: Yes Genitourinary: No Headaches: No Hepatitis: No Hiatal Hernia: Yes Hypertension: Yes Immune Disorder: No Implanted Vascular Access Dvce: No Medical other: Yes (hemochromotosis) Musculoskeletal: Yes (neck) Neurologic: Yes (mild numbness and tingling in both upper extremities) Psychiatric: No Reproductive: No Respiratory: Yes (pulmonary fibrosis on home oxygen) Immunizations Current: Yes Seizures: No Thyroid Disease: No Tetanus Vaccination: Unknown Influenza Vaccination: Yes Past Surgical History Abdominal Surgery: Yes (lap flor hernia repair ) Appendectomy: Yes Body Medical Devices: lower back and neck Cardiac Surgery: No Gynecologic Surgery: Yes (complete hysterectomy) Hysterectomy: Yes Neurologic Surgery: Yes (97'C4-5 ANTERIOR FUSION;99' C6-7 ANTERIOR FUSION, lumbar fusion) Oral Surgery: Yes (90' LEFT SALIVARY GLAND REMOVED ; SINSUS SX) Pacemaker: No Thoracic Surgery: Yes (kailyn mastitis which was drained) Other Surgery: Yes (breast reduction) Social History Alcohol Use: Yes (daily) Tobacco Use: No Substance Use: No Allergies-Medications (Allergen,Severity, Reaction): Coded Allergies: Betadine (Verified Allergy, Mild, Rash, 11/04/16) Uncoded Allergies: IODINE PAINT (Allergy, Severe, Rash, 06/30/12) Reported Meds & Prescriptions Reported Meds & Active Scripts Active Azithromycin 500 Mg Tab 500 Mg PO DAILY Ceftin (Cefuroxime Axetil) 500 Mg Tab 500 Mg PO BID Vicodin (Hydrocodone-Acetaminophen) 5-300 Mg Tab 2 Tab PO Q6H PRN Tramadol (Tramadol HCl) 50 Mg Tab 50 Mg PO Q6H PRN Reported Proair Hfa 8.5 GM Inh (Albuterol Sulfate) 90 Mcg/Act Aer 1 Puff INH Q4H PRN 108 mcg/actuation Meclizine 25 (Meclizine HCl) 25 Mg Tab 1 Tab PO TID Ondansetron HCl 4 Mg Tab 1 Tab PO DAILY Librax (Chlordiazepoxide/Clidinium) 5-2.5 Mg Cap 1 Cap PO DAILY PRN [oxygen] 1 Inhaler INH DAILY Levocetirizine 5 Mg Tab 5 Mg PO DAILY [place] Thyroid (Thyroid) 120 Mg Tab 120 Mg PO DAILY Alprazolam 0.5 Mg Tab 0.5 Mg PO BID PRN Budesonide Neb 1 Mg/2 Ml Neb 0.5 Mg NEB BID Bupropion HCl 100 Mg Tab 150 Mg PO BID Combivent Respimat Inh (Ipratropium-Albuterol Inh) 20-100 Shelter/Act Aero 1 Puff INH BID Estradiol Patch 84 HR (Estradiol) 0.1 Mg/24 Hr Patch 1 Patch T-DERMAL Q7D PRN Remove old patch and discard when new patch being placed.Change same days each week. Montelukast (Montelukast Sodium) 10 Mg Tab 10 Mg PO HS Xolair Inj (Omalizumab) 150 Mg Vial 150 Mg SQ MONTHLY Prednisone 5 Mg Tab 5-10 Mg PO DAILY PRN Temazepam 15 Mg Cap 15 Mg PO HS PRN Review of Systems Except as stated in HPI: all other systems reviewed are Neg General / Constitutional: Positive: Fever HENT: Positive: Headaches, No: Lightheadedness Cardiovascular: No: Chest Pain or Discomfort Respiratory: No: Shortness of Breath Gastrointestinal: Positive: Abdominal Pain, No: Nausea, Vomiting Genitourinary: Positive: Incontinence Musculoskeletal: Positive: Weakness Neurologic: Positive: Weakness Physical Exam Narrative GENERAL: Awake, alert, 71-year-old female who appears her stated age and is in no acute respiratory distress. SKIN: Warm and dry. HEAD: Atraumatic. Normocephalic. EYES: Pupils equal and round. Pupils are 3 mm bilateral and reactive. She is able to see fingers at a distance of 2 feet without difficulty. EOMs are intact. ENT: No nasal bleeding or discharge. Slightly dry mucous membranes. NECK: Trachea midline. No JVD. Cervical collar in place. CARDIOVASCULAR: Regular, tachycardic with a heart rate 110. RESPIRATORY: No accessory muscle use. Few scattered rhonchi.. GASTROINTESTINAL: Abdomen soft, generalized tenderness, but no rebound tenderness, guarding, or rigidity. MUSCULOSKELETAL: No obvious deformities. No clubbing. No cyanosis. No edema. Moves all 4 extremities. NEUROLOGICAL: Awake and alert. No obvious cranial nerve deficits. Motor grossly within normal limits. Normal speech. Oriented to person and place, but the year is 2017 and a month was November. Was able to tell me Aftab shahid will be the next president. PSYCHIATRIC: Slightly confused. Data Data Last Documented VS Vital Signs Date Time Temp Pulse Resp B/P Pulse Ox O2 Delivery O2 Flow Rate FiO2 11/04/16 23:08 110 20 187/87 97 Nasal Cannula 2 11/04/16 21:55 100.4 Orders Electrocardiogram (11/04/16 23:26) Complete Blood Count With Diff (11/04/16 23:26) Comprehensive Metabolic Panel (11/04/16 23:26) Creatine Kinase (Cpk) (11/04/16 23:26) Prothrombin Time / Inr (Pt) (11/04/16 23:26) Act Partial Throm Time (Ptt) (11/04/16 23:26) Troponin I (11/04/16 23:26) Lactic Acid Sepsis Protocol (11/04/16 23:26) Urinalysis - C+S If Indicated (11/04/16 23:26) Blood Culture (11/04/16 23:26) Chest, Single Ap (11/04/16 23:26) Ct Brain W/O Iv Contrast(Rout) (11/04/16 23:26) Blood Glucose (11/04/16 23:26) Ecg Monitoring (11/04/16 23:26) Iv Access Insert/Monitor (11/04/16 23:26) Oximetry (11/04/16 23:26) Sodium Chloride 0.9% Flush (Ns Flush) (11/04/16 23:30) Sodium Chlor 0.9% 1000 Ml Inj (Ns 1000 M (11/04/16 23:26) Ct Abd/Pel W/O Iv Contrast (11/04/16 ) Cath For Specimen (11/04/16 23:36) Cefepime Inj (Maxipime Inj) (11/05/16 00:00) Azithromycin Inj (Zithromax Inj) (11/05/16 00:00) Acetaminophen (Tylenol) (11/05/16 00:00) Urinary Catheter Insert/Apply (11/05/16 00:01) Morphine Inj (Morphine Inj) (11/05/16 00:15) Ondansetron Inj (Zofran Inj) (11/05/16 00:15) Sodium Chlor 0.9% 1000 Ml Inj (Ns 1000 M (11/05/16 00:15) Albuterol-Ipratropium Neb (Duoneb Neb) (11/05/16 00:15) Admit Order (Ed Use Only) (11/05/16 01:01) Labs Laboratory Tests Test 11/05/16 11/05/16 11/05/16 00:00 00:20 00:35 White Blood Count 14.5 TH/MM3 Red Blood Count 4.14 MIL/MM3 Hemoglobin 13.6 GM/DL Hematocrit 40.4 % Mean Corpuscular Volume 97.6 FL Mean Corpuscular Hemoglobin 32.9 PG Mean Corpuscular Hemoglobin 33.7 % Concent Red Cell Distribution Width 13.1 % Platelet Count 153 TH/MM3 Mean Platelet Volume 9.0 FL Neutrophils (%) (Auto) 80.1 % Lymphocytes (%) (Auto) 11.5 % Monocytes (%) (Auto) 8.1 % Eosinophils (%) (Auto) 0.1 % Basophils (%) (Auto) 0.2 % Neutrophils # (Auto) 11.6 TH/MM3 Lymphocytes # (Auto) 1.7 TH/MM3 Monocytes # (Auto) 1.2 TH/MM3 Eosinophils # (Auto) 0.0 TH/MM3 Basophils # (Auto) 0.0 TH/MM3 CBC Comment AUTO DIFF Differential Total Cells 100 Counted Neutrophils % (Manual) 66 % Band Neutrophils % 18 % Lymphocytes % 9 % Monocytes % 7 % Neutrophils # (Manual) 12.2 TH/MM3 Differential Comment FINAL DIFF MANUAL Platelet Estimate NORMAL Platelet Morphology Comment NORMAL Red Cell Morphology Comment NORMAL Prothrombin Time 11.3 SEC Prothromb Time International 1.0 RATIO Ratio Activated Partial 26.2 SEC Thromboplast Time Urine Color YELLOW Urine Turbidity CLEAR Urine pH 6.5 Urine Specific [place] 1.011 Urine Protein TRACE mg/dL Urine Glucose (UA) NEG mg/dL Urine Ketones TRACE mg/dL Urine Occult Blood SMALL Urine Nitrite NEG Urine Bilirubin NEG Urine Urobilinogen LESS THAN 2.0 MG/DL Urine Leukocyte Esterase NEG Urine RBC 20 /hpf Urine WBC 1 /hpf Microscopic Urinalysis Comment CATH-CULT NOT IND Lactic Acid Level 1.1 mmol/L MDM Medical Decision Making Medical Screen Exam Complete: Yes Emergency Medical Condition: Yes Medical Record Reviewed: Yes Interpretation(s) Chest x-ray reveals worsening diffuse interstitial infiltrate CT of the brain reveals no acute intracranial findings EKG reveals sinus tachycardia with a heart rate of 115. Large P waves noted in lead 2. Last Impressions Head CT 11/04/162325 Signed Impressions: Service Date/Time: Friday, November 04, 2016 23:45 - CONCLUSION: No acute intracranial findings. Jimmy Felton MD Chest X-Ray 11/04/162325 Signed Impressions: Service Date/Time: Friday, November 04, 2016 23:40 - CONCLUSION: Worsening diffuse interstitial infiltrate Jimmy Felton MD Abdomen/Pelvis CT 11/04/16 0000 Signed Impressions: Service Date/Time: Friday, November 04, 2016 23:48 - CONCLUSION: Markedly dilated urinary bladder with mild-moderate bilateral hydronephrosis Jimmy Felton MD Laboratory Tests Test 11/05/16 11/05/16 11/05/16 00:00 00:20 00:35 White Blood Count 14.5 TH/MM3 Red Blood Count 4.14 MIL/MM3 Hemoglobin 13.6 GM/DL Hematocrit 40.4 % Mean Corpuscular Volume 97.6 FL Mean Corpuscular Hemoglobin 32.9 PG Mean Corpuscular Hemoglobin 33.7 % Concent Red Cell Distribution Width 13.1 % Platelet Count 153 TH/MM3 Mean Platelet Volume 9.0 FL Neutrophils (%) (Auto) 80.1 % Lymphocytes (%) (Auto) 11.5 % Monocytes (%) (Auto) 8.1 % Eosinophils (%) (Auto) 0.1 % Basophils (%) (Auto) 0.2 % Neutrophils # (Auto) 11.6 TH/MM3 Lymphocytes # (Auto) 1.7 TH/MM3 Monocytes # (Auto) 1.2 TH/MM3 Eosinophils # (Auto) 0.0 TH/MM3 Basophils # (Auto) 0.0 TH/MM3 CBC Comment AUTO DIFF Differential Total Cells 100 Counted Neutrophils % (Manual) 66 % Band Neutrophils % 18 % Lymphocytes % 9 % Monocytes % 7 % Neutrophils # (Manual) 12.2 TH/MM3 Differential Comment FINAL DIFF MANUAL Platelet Estimate NORMAL Platelet Morphology Comment NORMAL Red Cell Morphology Comment NORMAL Prothrombin Time 11.3 SEC Prothromb Time International 1.0 RATIO Ratio Activated Partial 26.2 SEC Thromboplast Time Urine Color YELLOW Urine Turbidity CLEAR Urine pH 6.5 Urine Specific [place] 1.011 Urine Protein TRACE mg/dL Urine Glucose (UA) NEG mg/dL Urine Ketones TRACE mg/dL Urine Occult Blood SMALL Urine Nitrite NEG Urine Bilirubin NEG Urine Urobilinogen LESS THAN 2.0 MG/DL Urine Leukocyte Esterase NEG Urine RBC 20 /hpf Urine WBC 1 /hpf Microscopic Urinalysis Comment CATH-CULT NOT IND Lactic Acid Level 1.1 mmol/L Differential Diagnosis Differential diagnosis includes UTI, pneumonia, delirium, inability to ambulate , acute cholecystitis, ileus, dehydration, medication side effect, sepsis. Narrative Course IV was established, labs are drawn and sent, and the patient was placed on cardiac telemetry monitoring and continuous pulse oximetry monitoring. EKG was ordered and interpreted. Chest x-ray was ordered. The patient was placed on IV fluids. CT the brain was ordered to evaluate for delayed bleed and CT the abdomen and pelvis was ordered. UA was sent to lab. Chest x-ray reveals worsening diffuse interstitial infiltrate, the patient was mildly tachycardic with a fever of 100.4, history of pneumonia. Therefore, patient was administered cefepime 2 g intravenously and Zithromax 500 mg intravenously. Blood cultures and lactic acid were sent to lab, prior to antibiotic administration. Repeat CT the brain reveals no acute hemorrhage, patient's headache may be postconcussive. CT the abdomen and pelvis reveals a large bladder, therefore, Sanders catheter was placed for retention. The patient's white count did reveal white count of 14.5 with bands of 18. Sanders catheter was placed, patient had 1800 cc of urine output. X-ray is positive for pneumonia, patient was treated with cefepime and Zithromax. The patient will be admitted to the hospital for further evaluation. Sepsis Criteria SIRS Criteria (2 or more): Heart rate over 90, RR > 20 or PaCO2 < 32, WBC > 72507, < 4000 or > 10% bands Criteria Outcome: Meets sepsis criteria Physician Communication Physician Communication The on-call hospitalist was paged for admission. Diagnosis Primary Impression: Pneumonia Qualified Code: J18.9 - Pneumonia of both lungs due to infectious organism, unspecified part of lung Additional Impressions: Sepsis Qualified Code: A41.9 - Sepsis, due to unspecified organism C7 cervical fracture Qualified Code: S12.601D - Closed nondisplaced fracture of seventh cervical vertebra with routine healing, unspecified fracture morphology, subsequent encounter T1 vertebral fracture Qualified Code: S22.019D - Closed fracture of first thoracic vertebra with routine healing, unspecified fracture morphology, subsequent encounter Admitting Information Admitting Physician Requests: Admit Condition: Stable Abdi Curran MD Nov 04, 2016 23:31
--- NOTE | 2016-11-04 23:54 | RADRPT ---
EXAM DATE/TIME: 11/04/2016 23:40 [facility] COMPARISON: CHEST SINGLE AP, November 03, 2016, 5:25. INDICATIONS : Syncope. MEDICAL HISTORY : Fx C7, T1 SURGICAL HISTORY : cervical spine fusion ENCOUNTER: Initial ACUITY: 1 day PAIN SCORE: 0/10 LOCATION: Bilateral chest FINDINGS: Worsening diffuse coarse interstitial infiltrates. Cardiomediastinal contours are grossly unchanged. CONCLUSION: Worsening diffuse interstitial infiltrate Jimmy Felton MD on November 04, 2016 at 23:52 Board Certified Radiologist. This report was verified electronically.
--- NOTE | 2016-11-04 23:57 | RADRPT ---
EXAM DATE/TIME: 11/04/2016 23:45 [facility] COMPARISON: CT BRAIN W/O CONTRAST, November 01, 2016, 11:50. INDICATIONS : Altered mental status. RADIATION DOSE: 56.24 CTDIvol (mGy) MEDICAL HISTORY : Cardiovascular disease. Hypertension. Chronic obstructive pulmonary disease.asthma SURGICAL HISTORY : Hysterectomy. cervical fusion, hernia repair, lap flor ENCOUNTER: Initial ACUITY: 1 day PAIN SCALE: 0/10 LOCATION: cranial TECHNIQUE: Multiple contiguous axial images were obtained of the head. Using automated exposure control and adj ustment of the mA and/or kV according to patient size, radiation dose was kept as low as reasonably a chievable to obtain optimal diagnostic quality images. FINDINGS: There is a tiny lacunar infarct in the anterior limb of the right internal capsule which appears unch anged. The brain is otherwise symmetric and normal with no evidence of mass or hemorrhage involving t he suggest acute infarction. There is mild mucosal thickening in the facial sinuses. CONCLUSION: No acute intracranial findings. Jimmy Felton MD on November 04, 2016 at 23:53 Board Certified Radiologist. This report was verified electronically.
[2016-11-05] VITALS (23 sets, daily range): BP systolic 85–157; BP diastolic 56–100; PULSE 81–118; RESP 16–20; TEMP 98.2–100.6; O2SAT 63–96
[2016-11-05] MEDS ORDERED: AZITHROMYCIN INJ 500 MG in SODIUM CHLOR 0.9% 250 ML INJ 250 ML IV ONE ×2
[2016-11-05] MEDS ORDERED: ACETAMINOPHEN 325 MG TAB PO ONE
[2016-11-05] MEDS ORDERED: CEFEPIME INJ 2,000 MG in SODIUM CHLORIDE 0.9% INJ 100 ML IV ONE ×2
[2016-11-05] MEDS ORDERED: SODIUM CHLOR 0.9% 1000 ML INJ 1,000 ML IV ONE (00:15)
[2016-11-05] MEDS ORDERED: RESP: ALBUTEROL 2.5 MG/IPRATROPIUM 0.5 MG NEB (SCH) NEB ONE (00:15)
[2016-11-05] MEDS ORDERED: MORPHINE SULFATE 4 MG/ML INJ IV PUSH ONE (00:15)
[2016-11-05] MEDS ORDERED: ONDANSETRON HCL 4 MG/2 ML VIAL IV PUSH ONE (00:15)
--- NOTE | 2016-11-05 00:29 | RADRPT ---
EXAM DATE/TIME: 11/04/2016 23:48 [facility] COMPARISON: CHEST SINGLE AP, November 04, 2016, 23:40. INDICATIONS : Diffuse abdominal pain. ORAL CONTRAST: No oral contrast ingested. RADIATION DOSE: 11.53 CTDIvol (mGy) MEDICAL HISTORY : Cardiovascular disease. Hypertension. Chronic obstructive pulmonary disease.asthma SURGICAL HISTORY : Hysterectomy. spinal fusion, hernia repair, lap flor ENCOUNTER: Initial ACUITY: 1 day PAIN SCALE: 7/10 LOCATION: abdomen TECHNIQUE: Volumetric scanning of the abdomen and pelvis was performed. Using automated exposure control and ad justment of the mA and/or kV according to patient size, radiation dose was kept as low as reasonably achievable to obtain optimal diagnostic quality images. FINDINGS: LOWER LUNGS: There is moderate airspace disease in the lung bases bilaterally. LIVER: Homogeneous density without lesion. There is no dilation of the biliary tree. Gallbladder surgically absent.. SPLEEN: Normal size without lesion. PANCREAS: Within normal limits. KIDNEYS: Bilateral moderate hydronephrosis. ADRENAL GLANDS: Within normal limits. VASCULAR: There is no aortic aneurysm. BOWEL/MESENTERY: The stomach, small bowel, and colon demonstrate no acute abnormality. There is no free intraperitone al air or fluid. ABDOMINAL WALL: Within normal limits. RETROPERITONEUM: There is no lymphadenopathy. BLADDER: Markedly dilated REPRODUCTIVE: Uterus surgically absent. No evidence of pelvic mass or free fluid. INGUINAL: There is no lymphadenopathy or hernia. MUSCULOSKELETAL: Within normal limits for patient age. CONCLUSION: Markedly dilated urinary bladder with mild-moderate bilateral hydronephrosis Jimmy Felton MD on November 05, 2016 at 0:17 Board Certified Radiologist. This report was verified electronically.
[2016-11-05 00:56] LABS: BLOOD, URINE SMALL (NEG); COMMENT (UR) CATH-CULT NOT IND; CULTURE IF INDICATED CATH CULTURE NOT IND; GLUCOSE,URINE NEG (NEG); KETONE, URINE TRACE mg/dL (NEG); NITRITE,URINE NEG (NEG); PH, URINE 6.5 (5.0-8.5); URINE COLOR YELLOW (YELLW/STRAW)
[2016-11-05 01:01] LABS: APTT (PATIENT) 26.2 SEC (24.3-30.1); PROTHROMBIN TIME - PATIENT 11.3 SEC (9.8-11.6)
[2016-11-05 01:02] LABS: AUTOMATED NEUTROPHIL # 11.6 TH/MM3 (1.8-7.7); BASOPHIL % 0.2 % (0.0-2.0); EOSINOPHIL % 0.1 % (0.0-4.0); HEMATOCRIT 40.4 % (35.0-46.0); LYMPH % 11.5 % (9.0-44.0); LYMPHOCYTE # 1.7 TH/MM3 (1.0-4.8); MEAN CELL VOLUME 97.6 FL (80.0-100.0); MEAN CORPUSCULAR HEMOGLOBIN 32.9 PG (27.0-34.0); MEAN CORPUSCULAR HGB CONC 33.7 % (32.0-36.0); MONO % 8.1 % (0.0-8.0); NEUT % 80.1 % (16.0-70.0); PLATELET COUNT 153 TH/MM3 (150-450); RED BLOOD COUNT 4.14 MIL/MM3 (4.00-5.30); RED CELL DISTRIBUTION WIDTH 13.1 % (11.6-17.2); WHITE BLOOD COUNT 14.5 TH/MM3 (4.0-11.0)
[2016-11-05 01:33] LABS: HEMO FLAGS AUTO DIFF
[2016-11-05 01:35] LABS: BANDS 18 % (0-6); NEUTROPHIL # MANUAL DIFF 12.2 TH/MM3 (1.8-7.7); POLYS (SEG NEUTROPHILS) 66 % (16-70); WBC DIFF SAMPLE 100
[2016-11-05 01:36] LABS: PLATELET ESTIMATE SMEAR NORMAL (NORMAL); PLATELET MORPHOLOGY NORMAL (NORMAL); SCAN/DIFF FINAL DIFF MANUAL
[2016-11-05] MEDS ORDERED: NALOXONE HCL 0.4 MG/ML AMP IV PRN (02:15)
[2016-11-05] MEDS ORDERED: ONDANSETRON HCL 4 MG/2 ML VIAL IVP PRN (02:15)
[2016-11-05 04:29] LABS: ALKALINE PHOSPHATASE 60 U/L (45-117); ALT (GPT) 38 U/L (10-53); ANION GAP 9 MEQ/L (5-15); AST (GOT) 53 U/L (15-37); BICARBONATE 24.4 MEQ/L (21.0-32.0); BLOOD UREA NITROGEN 7 MG/DL (7-18); CHLORIDE 104 MEQ/L (98-107); CREATINE KINASE 108 U/L (26-192); GLOMERULAR FILTRATION RATE 99 ML/MIN (>89); POTASSIUM 3.3 MEQ/L (3.5-5.1); SODIUM (NA) 137 MEQ/L (136-145); TOTAL BILIRUBIN ADULT 0.5 MG/DL (0.2-1.0)
[2016-11-05] MEDS: ACETAMINOPHEN/HYDROcodone 325 MG/5 MG TAB PO PRN ×4 (06:45→23:03)
[2016-11-05] MEDS ORDERED: MORPHINE SULFATE 4 MG/ML INJ IV PRN (07:45)
[2016-11-05] MEDS ORDERED: POTASSIUM CHLORIDE 25 MEQ EFFERVESCENT TAB PO ONE (08:30)
[2016-11-05] MEDS ORDERED: ALBUTEROL SULFATE 90 MCG/ACT HFA 8 GM INHALER INH PRN (08:45)
[2016-11-05] MEDS ORDERED: VANCOMYCIN INJ 1,250 MG in SODIUM CHLOR 0.9% 250 ML INJ 250 ML IV SCH (09:00)
[2016-11-05] MEDS ORDERED: NON-FORMULARY DRUG (Ipratropium-Albuterol Inh (Combivent Respimat Inh) 1 PUFF) INH SCH (09:00)
[2016-11-05] MEDS ORDERED: Vancomycin Consult Pharmacy 1 EA OTHER SCH (09:00)
--- NOTE | 2016-11-05 09:13 | HHI.HP ---
[facility] Kandy Smart MD Admission Diagnosis bilateral pneumonia, sepsis, urinary retention, hydronephrosis Diagnoses: Chief Complaint: Weakness, falls Travel History International Travel<30 Days: No Contact w/Intl Traveler <30 Da: No Traveled to Known Affected Are: No History of Present Illness The pt is a 71-year-old female who previously presented to the emergency department with pain in her neck and back following a fall that occurred at her home. She was found to have C7/ T1 fractures. She was evaluated by neurosurgery and was placed in a cervical collar. She was discharged home as the pt did not want home health nursing or home health physical therapy. The pt developed an inability to ambulate at home. She had a walker but was unable to use it as she could in the hospital. She fell down twice and the neighbors had to help the pt off of the floor. She also had urinary incontinence. The pt's also stated that the pt has been more confused at home. The pt was brought to the ED for further evaluation. The pt complains of 7/10 pain in her neck. She denies any shortness of breath or a productive cough. She is able to state her name and she knows Aubrey will be the next president but she thought the year was 2011. Review of Systems ROS Limitations: Clinical Condition, Altered Mental Status, Poor Historian Constitutional: COMPLAINS OF: Fatigue Respiratory: DENIES: Shortness of breath Gastrointestinal: COMPLAINS OF: Abdominal pain Genitourinary: COMPLAINS OF: Urinary incontinence Musculoskeletal: COMPLAINS OF: Joint pain, Stiffness, Neck pain Neurologic: COMPLAINS OF: Abnormal gait, Localized weakness, Poor Balance Psychiatric: COMPLAINS OF: Confusion Past Family Social History Past Medical History Asthma Pulmonary fibrosis GERD Hemochromatosis C7/T1 fractures Past Surgical History Tonsillectomy Cholecystectomy Lumbar spine surgery Cervical spine surgery Hysterectomy Left salivary gland surgery Breast reduction Allergies: Coded Allergies: Betadine (Verified Allergy, Mild, Rash, 11/04/16) Uncoded Allergies: IODINE PAINT (Allergy, Severe, Rash, 06/30/12) Active Ordered Medications Current Medications Medications (Trade) Dose Ordered Sig/Stephanie Route Start Time Stop Time Status Last Admin (NS Flush) 2 ml UNSCH PRN FLUSH 11/05/16 02:15 (NS Flush) 2 ml BID FLUSH 11/05/16 09:00 (Zofran Inj) 4 mg Q6H PRN IVP 11/05/16 02:15 (Heparin Inj) 5,000 units Q8H SQ 11/05/16 06:00 Naloxone HCl 0.4 mg 0.4 mg UNSCH PRN IV 11/05/16 02:15 (Maxipime Inj/NS Inj) 100 ml @ 200 mls/hr Q12H IV 11/05/16 12:00 ([place] 5-325 Mg) 2 tab Q6H PRN PO 11/05/16 05:45 11/05/16 06:45 (Morphine Inj) 4 mg Q4H PRN IV 11/05/16 07:45 (Proair Hfa Inh) 1 puff Q4H PRN INH 11/05/16 08:45 UNV (Xanax) 0.5 mg BID PRN PO 11/05/16 08:45 UNV (Wellbutrin) 150 mg BID PO 11/05/16 09:00 UNV (Singulair) 10 mg HS PO 11/05/16 21:00 UNV ([place] Thyroid) 120 mg DAILY PO 11/05/16 09:00 UNV Non-Formulary Medication 0.5 mg BID NEB 11/05/16 09:00 UNV Non-Formulary Medication 1 puff BID INH 11/05/16 09:00 UNV Non-Formulary Medication 5 mg 5 mg DAILY PO 11/05/16 09:00 UNV Pharmacy Profile Note 0 ml @ 0 mls/hr UNSCH OTHER 11/05/16 09:00 UNV Vancomycin HCl 1250 mg/Sodium Chloride 262.5 ml @ 262.5 mls/ hr Q12H IV 11/05/16 09:00 UNV (Zosyn 4.5 Gm Premix) 100 ml @ 200 mls/hr Q6H IV 11/05/16 09:00 UNV Family History Denies pertinent family history. Social History Denies tobacco or illicit drug use. Drinks 1 glass of wine daily. Physical Exam Vital Signs Vital Signs Date Time Temp Pulse Resp B/P Pulse Ox O2 Delivery O2 Flow Rate FiO2 11/05/16 08:00 106 11/05/16 07:00 115 11/05/16 07:00 98.5 107 20 129/77 63 11/05/16 06:33 98.3 100 16 147/83 95 11/05/16 04:30 104 20 144/67 94 Nasal Cannula 4 11/05/16 02:40 98.6 110 18 147/73 92 Nasal Cannula 4 11/05/16 02:15 91 Nasal Cannula 4.00 11/04/16 23:08 110 20 187/87 97 Nasal Cannula 2 11/04/16 22:05 81 20 98 Nasal Cannula 2 11/04/16 21:55 100.4 111 24 138/65 94 Physical Exam GENERAL: Lethargic, resting comfortably. SKIN: Warm and dry. HEAD: Atraumatic. Normocephalic. EYES: Pupils equal and round. Pupils are 3 mm bilateral and reactive. EOMs are intact. ENT: No nasal bleeding or discharge. Slightly dry mucous membranes. NECK: Trachea midline. No JVD. Cervical collar in place. CARDIOVASCULAR: Regular, tachycardic. No murmurs. RESPIRATORY: Diffuse rhonchi. GASTROINTESTINAL: Abdomen soft, no tenderness, guarding or rigidity. MUSCULOSKELETAL: No obvious deformities. No clubbing. No cyanosis. No edema. Moves all 4 extremities. NEUROLOGICAL: Awake and alert. No obvious cranial nerve deficits. Motor grossly within normal limits. Normal speech. Oriented to person and place. PSYCHIATRIC: Slightly confused. Laboratory Laboratory Tests Test 11/05/16 11/05/16 11/05/16 11/05/16 00:00 00:20 00:35 03:45 White Blood Count 14.5 Red Blood Count 4.14 Hemoglobin 13.6 Hematocrit 40.4 Mean Corpuscular Volume 97.6 Mean Corpuscular Hemoglobin 32.9 Mean Corpuscular Hemoglobin 33.7 Concent Red Cell Distribution Width 13.1 Platelet Count 153 Mean Platelet Volume 9.0 Neutrophils (%) (Auto) 80.1 Lymphocytes (%) (Auto) 11.5 Monocytes (%) (Auto) 8.1 Eosinophils (%) (Auto) 0.1 Basophils (%) (Auto) 0.2 Neutrophils # (Auto) 11.6 Lymphocytes # (Auto) 1.7 Monocytes # (Auto) 1.2 Eosinophils # (Auto) 0.0 Basophils # (Auto) 0.0 CBC Comment AUTO DIFF Differential Total Cells 100 Counted Neutrophils % (Manual) 66 Band Neutrophils % 18 Lymphocytes % 9 Monocytes % 7 Neutrophils # (Manual) 12.2 Differential Comment FINAL DIFF MANUAL Platelet Estimate NORMAL Platelet Morphology Comment NORMAL Red Cell Morphology Comment NORMAL Prothrombin Time 11.3 Prothromb Time International 1.0 Ratio Activated Partial 26.2 Thromboplast Time Urine Color YELLOW Urine Turbidity CLEAR Urine pH 6.5 Urine Specific [place] 1.011 Urine Protein TRACE Urine Glucose (UA) NEG Urine Ketones TRACE Urine Occult Blood SMALL Urine Nitrite NEG Urine Bilirubin NEG Urine Urobilinogen LESS THAN 2.0 Urine Leukocyte Esterase NEG Urine RBC 20 Urine WBC 1 Microscopic Urinalysis Comment CATH-CULT NOT IND Lactic Acid Level 1.1 Sodium Level 137 Potassium Level 3.3 Chloride Level 104 Carbon Dioxide Level 24.4 Anion Gap 9 Blood Urea Nitrogen 7 Creatinine 0.60 Estimat Glomerular Filtration 99 Rate Random Glucose 132 Calcium Level 7.5 Total Bilirubin 0.5 Aspartate Amino Transf 53 (AST/SGOT) Alanine Aminotransferase 38 (ALT/SGPT) Alkaline Phosphatase 60 Total Creatine Kinase 108 Troponin I 0.03 Total Protein 6.3 Albumin 2.7 Date/Time Procedure Status Source Growth 11/05/16 00:35 Aerobic Blood Culture Received Blood Peripheral Pending 11/05/16 00:35 Anaerobic Blood Culture Received Blood Peripheral Pending Result Diagram: 11/05/16 0000 11/05/16 0345 Imaging Last Impressions Head CT 11/04/162325 Signed Impressions: Service Date/Time: Friday, November 04, 2016 23:45 - CONCLUSION: No acute intracranial findings. Jimmy Felton MD Chest X-Ray 11/04/162325 Signed Impressions: Service Date/Time: Friday, November 04, 2016 23:40 - CONCLUSION: Worsening diffuse interstitial infiltrate Jimmy Felton MD Abdomen/Pelvis CT 11/04/16 0000 Signed Impressions: Service Date/Time: Friday, November 04, 2016 23:48 - CONCLUSION: Markedly dilated urinary bladder with mild-moderate bilateral hydronephrosis Jimmy Felton MD Assessment and Plan Assessment and Plan C7 and T1 fractures On recent hospitalization CT showed: Oblique fractures through the base of the pedicles of both sides of the C7 vertebral body; There is also a comminuted fracture involving the inferior end plate of T1 which is not significantly displaced only loosing 10%% of its original vertebral body height; The C7 fractures extend into the facet joints superiorly and the right side of the facet may be perched on the fracture; The C6 lamina is slightly anterior to the majority of the facet joint. Neurosurgery was consulted at that time and the pt was continued on a cervical collar. The pt and declined home health care PT and nursing. The pt was unable to ambulate at home and fell and was readmitted to the hospital. - pain control with a bowel regimen. - occupational/ physical therapy. - reconsult neurosurgery. - consult pt's neurologist. Generalized weakness/ encephalopathy The pt was able to ambulate in the hospital but not when she was discharged home. She also developed confusion. May be s/t fractures above and pneumonia. The pt also had urinary retention which likely contributed to encephalopathy. - PT/OT. - neurology consult pending. - check B12, TSH, ammonia, ESR, CRP levels. Pulmonary fibrosis/ asthma/ HCAP The pt was discharged on Ceftin and azithromycin. CXR on readmission with worsening infiltrates. - start vancomycin and Zosyn to treat for HCAP. - continued home inhalers and oxygen as needed. - incentive spirometry. - blood and sputum cultures. Urinary retention/ incontinence Likely s/t fractures and relative immobility during hospitalization. - continue Sanders catheter. - neurosurgical reevaluation is pending. Hypokalemia Likely s/t decreased PO intake. - IVFs with KCl. - follow BMP and replete as needed. PPx: Lovenox. Discussed Condition With Pt, pt's , nurse. Physician Certification 2 Midnight Certification Type: Admission for Inpatient Services Order for Inpatient Services The services are ordered in accordance with Medicare regulations or non- Medicare payer requirements, as applicable. In the case of services not specified as inpatient-only, they are appropriately provided as inpatient services in accordance with the 2-midnight benchmark. Estimated LOS (days): 2 days is the estimated time the patient will need to remain in the hospital, assuming treatment plan goals are met and no additional complications. Post-Hospital Plan: [facility] Rex Moreno DO Nov 05, 2016 09:12
[2016-11-05] MEDS ORDERED: NS + KCL 20 MEQ INJ 1,000 ML IV SCH (09:30)
[2016-11-05] MEDS: DOCUSATE SODIUM 100 MG CAP PO SCH ×2 (09:56→21:08)
[2016-11-05] MEDS: SENNOSIDES 8.6 MG TAB PO SCH (09:56)
[2016-11-05] MEDS: buPROPion HCL 100 MG TAB PO SCH ×2 (09:56→21:08)
[2016-11-05] MEDS: SODIUM CHLORIDE 0.9% FLUSH 5 ML FLUSH FLUSH SCH ×2 (09:56→21:08)
[2016-11-05] MEDS: THYROID 60 MG TAB PO SCH (11:14)
[2016-11-05] MEDS: PIPERACIL-TAZO 4.5 GM PREMIX 100 ML IV SCH ×3 (11:15→23:03)
[2016-11-05] MEDS: TIOTROPIUM BROMIDE 18 MCG INH INH SCH (11:15)
[2016-11-05] MEDS: VANCOMYCIN INJ 1,250 MG in SODIUM CHLOR 0.9% 250 ML INJ 250 ML IV SCH ×2 (11:17→23:03)
[2016-11-05] MEDS: MORPHINE SULFATE 4 MG/ML INJ IV PRN ×2 (11:30→21:08)
[2016-11-05] MEDS ORDERED: CEFEPIME INJ 1,000 MG in SODIUM CHLORIDE 0.9% INJ 100 ML IV SCH (12:00)
[2016-11-05] MEDS: ALBUTEROL SULFATE 90 MCG/ACT HFA 8 GM INHALER INH SCH ×3 (13:00→21:00)
[2016-11-05] MEDS: HEPARIN SODIUM - SQ 10,000 UNITS/ML VIAL SQ SCH ×2 (14:26→21:07)
[2016-11-05 19:04] LABS: FREE T3 2.84 PG/ML (2.18-3.98); FREE T4 0.97 NG/DL (0.76-1.46)
[2016-11-05] MEDS: RESP: BUDESONIDE 0.5 MG/2 ML NEB NEB SCH (19:51)
--- NOTE | 2016-11-05 21:02 | EKG ---
Date Performed: 11/04/2016 Time Performed: 23:01:46 PTAGE: 71 years EKG: SINUS TACHYCARDIA POSSIBLE LEFT ATRIAL ENLARGEMENT ABNORMAL RHYTHM ECG PREVIOUS TRACING : 10/09/2014 13.49 DOCTOR: Sunny Zimmerman Interpretating Date/Time 11/05/2016 21:00:29
[2016-11-05] MEDS: ALPRAZolam 0.5 MG TAB PO PRN (21:08)
[2016-11-05] MEDS: MONTELUKAST SODIUM 10 MG TAB PO SCH (23:05)
[2016-11-05] MEDS ORDERED: POTASSIUM CHLOR 20 MEQ PREMIX 100 ML IV ONE (23:45)
[2016-11-05] MEDS ORDERED: RESP: ALBUTEROL 2.5 MG/IPRATROPIUM 0.5 MG NEB (PRN) NEB (23:45)
[2016-11-05] MEDS ORDERED: FUROSEMIDE 20 MG/2 ML VIAL IV PUSH ONE (23:45)
[2016-11-05] MEDS ORDERED: RESP: ALBUTEROL 2.5 MG/IPRATROPIUM 0.5 MG NEB (SCH) NEB (23:45)
[2016-11-06] VITALS (23 sets, daily range): BP systolic 90–153; BP diastolic 58–79; PULSE 85–168; RESP 22–31; TEMP 97.9–99.6; O2SAT 90–100
[2016-11-06] MEDS: MORPHINE SULFATE 4 MG/ML INJ IV PRN ×2 (02:02→08:28)
[2016-11-06] MEDS: PIPERACIL-TAZO 4.5 GM PREMIX 100 ML IV SCH ×4 (05:39→23:00)
[2016-11-06] MEDS: THYROID 60 MG TAB PO SCH (05:40)
[2016-11-06] MEDS: ACETAMINOPHEN/HYDROcodone 325 MG/5 MG TAB PO PRN (05:41)
[2016-11-06] MEDS: HEPARIN SODIUM - SQ 10,000 UNITS/ML VIAL SQ SCH ×3 (05:41→21:57)
--- NOTE | 2016-11-06 05:41 | MB ---
cc: NAVEEDELÍAS DATE OF CONSULTATION 11/05/2016 REASON FOR CONSULTATION falls and altered mental status. HISTORY OF PRESENT ILLNESS A 71-year-old female who presented previously recently to the emergency room because of pain in her neck and back following a fall at home and she was found to have C7-T1 fracture, evaluated by Neurosurgery and placed in a cervical collar. She was discharged home. The patient developed inability to ambulate at home. She was found by her unable to use the walker, with urinary retention and she fell twice and the patient's also noticed that she was confused at home to her denial that she was not. The patient denies any headache, difficulty swallowing, chewing, difficulty breathing, numbness of extremities. REVIEW OF SYSTEMS A 12-point review of systems is negative except for what is stated in the HPI. PAST MEDICAL HISTORY 1. Asthma. 2. Pulmonary fibrosis. 3. GERD. 4. Hemochromatosis. 5. C7-T1 fracture. PAST SURGICAL HISTORY 1. Tonsillectomy. 2. Cholecystectomy. 3. Lumbar spine surgery. 4. Cervical spine surgery. 5. Hysterectomy. 6. Left salivary gland surgery. 7. Breast reduction. ALLERGIES BETADINE. FAMILY HISTORY Noncontributory SOCIAL HISTORY Denies tobacco and illicit drug use and drinks one glass of wine daily. PHYSICAL EXAMINATION GENERAL: The patient wears a cervical collar. In mild distress because of the pain. Good historian. Awake, alert. HEENT: Atraumatic, normocephalic. Cervical collar in place. Oxygen by nasal cannula in place. Intact vision. Intact hearing. NECK: Mild stiffness with collar in place. CARDIOVASCULAR: Regular rate and rhythm. No murmurs. RESPIRATORY: Diffuse rhonchi bilateral MUSCULOSKELETAL: No obvious deformity. No clubbing, no cyanosis. Moves all extremities. NEUROLOGIC EXAMINATION: Awake, alert, oriented to time, person and place. Intact speech. Intact speech content. Cranial nerves II-XII are grossly intact. Muscle strength 5/5. No abnormal movement. Normal tone in bilateral upper extremities. Lower extremities grade 5- in bilateral hip flexion and knee flexion. Otherwise 5/5 with no abnormal movements. Sensation is intact bilateral and symmetrical. No sensory level is appreciated. Sanders catheter in place. Reflexes are 2+ bilateral and symmetrical. Plantars are bilaterally downgoing. PSYCHIATRIC: Intact mood and behavior. Normal judgment. No hallucinations or delusions. LABORATORY TESTS White blood cells 14.5, hemoglobin 13.6, platelet count 153. INR 1.Lactic acid 1.1, sodium 137, potassium 3.3, anion gap 9, BUN 7, creatinine 0.6, calcium 7.5. DIAGNOSTIC IMAGING Head CT scan with no acute intracranial findings but there is a tiny lacunar infarct in the anterior lip of the right internal capsule which appears unchanged. No evidence of basilar hemorrhage. DIAGNOSTIC IMPRESSION 1. Encephalopathy, resolving. 2. The who is an HOME STAGER specialist was concerned about a diagnosis of Guillain-Holton syndrome. I explained to him that the clinical picture does not go with the diagnosis of Guillain-Holton syndrome given the preserved reflexes, the absence of autonomic features or bilateral facial weakness and the sphincter control disturbance are features that are not consistent with the diagnosis of Guillain-Holton. He understands well. 3. TSH was very low. It may contribute to the encephalopathic process. CRP is elevated as well as ammonia. The latter may also contribute to the encephalopathic process 4. C7-T1 fracture. This is secondary to a previous fall. Now the patient presents with urinary bladder disturbances with increasing pain, falls and mild weakness in the bilateral lower extremities. PLAN 1. Neuro checks q. 4 hours. 2. Consult Neurosurgery. Recommendations are appreciated to rule out a myelopathic pathology. 3. PT and OT recommendations are appreciated. Thank you for the opportunity to participate in the care of your patient. MD OCTAVIO Kat/ULISES /11:05 PM /5:23 AM MARIA GUADALUPE
[2016-11-06 06:28] LABS: AUTOMATED NEUTROPHIL # 10.1 TH/MM3 (1.8-7.7); BASOPHIL % 0.3 % (0.0-2.0); EOSINOPHIL % 0.2 % (0.0-4.0); HEMATOCRIT 34.8 % (35.0-46.0); HEMO FLAGS DIFF FINAL; LYMPH % 12.4 % (9.0-44.0); LYMPHOCYTE # 1.5 TH/MM3 (1.0-4.8); MEAN CELL VOLUME 98.6 FL (80.0-100.0); MEAN CORPUSCULAR HEMOGLOBIN 32.8 PG (27.0-34.0); MEAN CORPUSCULAR HGB CONC 33.3 % (32.0-36.0); MONO % 4.7 % (0.0-8.0); NEUT % 82.4 % (16.0-70.0); PLATELET COUNT 131 TH/MM3 (150-450); RED BLOOD COUNT 3.53 MIL/MM3 (4.00-5.30); RED CELL DISTRIBUTION WIDTH 13.2 % (11.6-17.2); WHITE BLOOD COUNT 12.2 TH/MM3 (4.0-11.0)
[2016-11-06 07:07] LABS: POTASSIUM 3.9 MEQ/L (3.5-5.1)
[2016-11-06] MEDS ORDERED: DILTIAZEM HCL 25 MG/5 ML VIAL ONE ×2 (08:19→11:17)
[2016-11-06] MEDS ORDERED: ACETAMINOPHEN/HYDROcodone 325 MG/5 MG TAB PO PRN (08:30)
[2016-11-06] MEDS: DILTIAZEM INJ 125 MG in SODIUM CHLORIDE 0.9% INJ 100 ML IV SCH ×3 (08:49→17:26)
[2016-11-06] MEDS: RESP: BUDESONIDE 0.5 MG/2 ML NEB NEB SCH ×2 (08:59→19:50)
[2016-11-06] MEDS: SENNOSIDES 8.6 MG TAB PO SCH (09:00)
[2016-11-06] MEDS: ALBUTEROL SULFATE 90 MCG/ACT HFA 8 GM INHALER INH SCH ×2 (09:00→12:44)
[2016-11-06] MEDS: DOCUSATE SODIUM 100 MG CAP PO SCH ×2 (09:00→21:53)
[2016-11-06] MEDS: LEVOCETIRIZINE 5 MG PO SCH (09:00)
[2016-11-06 09:18] LABS: BLOOD GAS BASE EXCESS -1.3 mmol/L (-2-2); BLOOD GAS CARBOXYHEMOGLOBIN 1.3 % (0-4); BLOOD GAS HCO3 23 mmol/L (22-26); BLOOD GAS METHEMOGLOBIN 1.3 % (0-2); BLOOD GAS O2 HGB SATURATION 95 % (90-100); BLOOD GAS OXYGEN CONTENT 16.8 Vol % (12.0-20.0); BLOOD GAS PCO2 40 mmHg (38-42); BLOOD GAS PO2 111 mmHg (61-120); BLOOD GAS TOTAL HGB 12.4 G/DL (12.0-16.0); TEMP CORR TO 98.6
[2016-11-06 09:19] LABS: CRITICAL VALUE NO; DRAW SITE LT RADIAL; LITER FLOW 15 L/M; NUMBER OF ARTERIAL PUNCTURES 1; STAT NO; ULNAR PULSE PRESENT
[2016-11-06 09:23] LABS: ANION GAP 7 MEQ/L (5-15); BICARBONATE 25.6 MEQ/L (21.0-32.0); BLOOD UREA NITROGEN 9 MG/DL (7-18); CHLORIDE 101 MEQ/L (98-107); GLOMERULAR FILTRATION RATE 89 ML/MIN (>89); POTASSIUM 3.5 MEQ/L (3.5-5.1); SODIUM (NA) 134 MEQ/L (136-145)
--- NOTE | 2016-11-06 09:29 | RADRPT ---
EXAM DATE/TIME: 11/06/2016 08:23 [facility] COMPARISON: CHEST SINGLE AP, November 04, 2016, 23:40. INDICATIONS: Short of breath. MEDICAL HISTORY: Cardiovascular disease. Hypertension. Chronic obstructive pulmonary disease. Asthma SURGICAL HISTORY: Hysterectomy. Spinal fusion, hernia repair, lap choley ENCOUNTER: Initial ACUITY: 1 week PAIN SCORE: 0/10 LOCATION: Bilateral chest FINDINGS: Coarse interstitial changes are present in both lungs. These have increased in the interval. Cardia c silhouette is present. There is no pleural effusion or pneumothorax. CONCLUSION: Increasing interstitial changes in both longs. Felice Malave MD FACR on November 06, 2016 at 9:11 Board Certified Radiologist. This report was verified electronically.
[2016-11-06] MEDS ORDERED: NS + KCL 20 MEQ INJ 1,000 ML IV SCH (09:30)
[2016-11-06] MEDS: buPROPion HCL 100 MG TAB PO SCH ×2 (09:40→21:56)
[2016-11-06] MEDS: TIOTROPIUM BROMIDE 18 MCG INH INH SCH (09:41)
--- NOTE | 2016-11-06 09:41 | HHI.PR ---
Subjective Remarks The patient said she had significant pain in her neck all the way down her back. She said she has shortness of breath but not worse than baseline. She denied any chest pain. She did endorse some confusion. Informed by nursing the patient had difficulty swallowing pills overnight. She also developed sustained tachycardia. Her oxygen saturation decreased in which she was placed on a nonrebreather. Objective Vitals Vital Signs Date Time Temp Pulse Resp B/P Pulse Ox O2 Delivery O2 Flow Rate FiO2 11/06/16 07:00 105 11/06/16 07:00 98.7 102 22 103/66 97 11/06/16 06:00 150 11/06/16 05:00 98 11/06/16 04:00 99 11/06/16 03:00 85 11/06/16 02:00 97 11/06/16 01:00 101 11/06/16 00:00 112 11/05/16 23:00 100 11/05/16 22:00 103 11/05/16 21:05 100.6 110 16 155/93 92 11/05/16 21:00 104 11/05/16 20:00 112 11/05/16 19:51 90 Nasal Cannula 5.00 11/05/16 19:00 117 11/05/16 18:00 118 11/05/16 17:00 108 11/05/16 16:00 87 11/05/16 15:00 98.7 86 16 85/56 96 11/05/16 15:00 81 11/05/16 14:00 89 11/05/16 13:00 95 11/05/16 12:00 100 11/05/16 11:00 98.2 112 20 157/100 95 11/05/16 11:00 109 11/05/16 10:00 99 I/O 11/05/16 11/05/16 11/05/16 11/06/16 11/06/16 11/06/16 07:00 15:00 23:00 07:00 15:00 23:00 Intake Total 1267 ml 690 ml Output Total 750 ml 950 ml Balance 517 ml -260 ml Intake Oral 600 ml 240 ml IV Total 667 ml 450 ml Output Urine Total 750 ml 950 ml # Bowel Movements 3 0 Result Diagram: 11/06/16 0545 11/06/16 08[address] [place] [address] Signed Impressions: Service Date/Time: Friday, November 04, 2016 23:45 - CONCLUSION: No acute intracranial findings. Jimmy Felton MD Chest X-Ray 11/04/162325 Signed Impressions: Service Date/Time: Friday, November 04, 2016 23:40 - CONCLUSION: Worsening diffuse interstitial infiltrate Jimmy Felton MD Abdomen/Pelvis CT 11/04/16 0000 Signed Impressions: Service Date/Time: Friday, November 04, 2016 23:48 - CONCLUSION: Markedly dilated urinary bladder with mild-moderate bilateral hydronephrosis Jimmy Felton MD Objective Remarks GENERAL: No apparent distress. SKIN: Warm and dry. HEAD: Atraumatic. Normocephalic. EYES: Pupils equal and round. Pupils are 3 mm bilateral and reactive. EOMs are intact. ENT: No nasal bleeding or discharge. Slightly dry mucous membranes. NECK: Trachea midline. No JVD. Cervical collar in place. CARDIOVASCULAR: Tachycardic. Irregularly, irregular rhythm. RESPIRATORY: Diffuse rhonchi and crackles. GASTROINTESTINAL: Abdomen soft, no tenderness, guarding or rigidity. MUSCULOSKELETAL: No obvious deformities. No clubbing. No cyanosis. No edema. Moves all 4 extremities. NEUROLOGICAL: Awake and alert. No obvious cranial nerve deficits. Motor grossly within normal limits. Normal speech. Oriented to person and place. PSYCHIATRIC: Slightly flattened affect. Medications and IVs Current Medications Medications (Trade) Dose Ordered Sig/Stephanie Route Start Time Stop Time Status Last Admin (NS Flush) 2 ml UNSCH PRN FLUSH 11/05/16 02:15 (NS Flush) 2 ml BID FLUSH 11/05/16 09:00 11/05/16 21:08 (Zofran Inj) 4 mg Q6H PRN IVP 11/05/16 02:15 (Heparin Inj) 5,000 units Q8H SQ 11/05/16 06:00 11/06/16 05:41 (Narcan Inj) 0.4 mg UNSCH PRN IV 11/05/16 02:15 (Proair Hfa Inh) 1 puff Q4H PRN INH 11/05/16 08:45 11/05/16 21:09 (Xanax) 0.5 mg BID PRN PO 11/05/16 08:45 11/05/16 21:08 (Wellbutrin) 150 mg BID PO 11/05/16 09:00 11/05/16 21:08 (Singulair) 10 mg HS PO 11/05/16 21:00 11/05/16 23:05 Patient Own Medication PT OWN MED: (Levocetirizine 5 MG) DAILY PO 11/06/16 09:00 Pharmacy Profile Note 0 ml @ 0 mls/hr UNSCH OTHER 11/05/16 09:00 (Zosyn 4.5 Gm Premix) 100 ml @ 200 mls/hr Q6H IV 11/05/16 10:00 11/06/16 05:39 (Colace) 100 mg BID PO 11/05/16 09:00 11/05/16 21:08 (Senokot) 17.2 mg DAILY PO 11/05/16 09:00 11/05/16 09:56 (Catapres) 0.1 mg Q6H PRN PO 11/05/16 09:15 (Spiriva Inh) 18 mcg DAILY INH 11/05/16 11:00 11/05/16 11:15 Albuterol Sulfate 2 puff 2 puff QID INH 11/05/16 13:00 11/05/16 17:59 (Vancomycin Inj/ NS 250 ml Inj) 262.5 ml @ 250 mls/hr Q12H IV 11/05/16 12:00 11/05/16 23:03 Miscellaneous Information SPECIFIC LAB TO BE DRAWN:VANCOMYCIN TROUGH DATE TO... ONCE ONCE XX 11/07/16 11:45 11/07/16 11:46 Furosemide 40 mg 40 mg ONCE ONCE IV PUSH 11/06/16 09:45 11/06/16 09:46 (Cardizem Inj/NS Inj) 125 ml @ 0 mls/hr TITRATE IV 11/06/16 08:30 11/06/16 08:49 ([place] 5-325 Mg) 2 tab Q4H PRN PO 11/06/16 09:45 ([place] 5-325 Mg) 1 tab Q4H PRN PO 11/06/16 08:30 ([place] Thyroid) 90 mg DAILY@06 PO 11/07/16 06:00 (Morphine Inj) 4 mg Q4H PRN IV 11/06/16 11:45 (Morphine Inj) 2 mg ONCE ONCE IV PUSH 11/06/16 09:45 11/06/16 09:46 A/P Assessment and Plan C7 and T1 fractures On recent hospitalization CT showed: Oblique fractures through the base of the pedicles of both sides of the C7 vertebral body; There is also a comminuted fracture involving the inferior end plate of T1 which is not significantly displaced only loosing 10%% of its original vertebral body height; The C7 fractures extend into the facet joints superiorly and the right side of the facet may be perched on the fracture; The C6 lamina is slightly anterior to the majority of the facet joint. Neurosurgery was consulted at that time and the pt was continued on a cervical collar. The pt and declined home health care PT and nursing. The pt was unable to ambulate at home and fell and was readmitted to the hospital. Appreciate neurology consult. - pain control with a bowel regimen. - occupational/ physical therapy. - reconsult neurosurgery. MRI T spine is ordered when respiratory and cardiac status are stable. - follow up with neurology. A flutter with RVR Pt developed HR into the 170s. EKG revealed sinus tach but appeared to be consistent with atrial flutter with aberrancy. - Cardizem bolus and gtt. Rebolus as needed. - decrease [place] Thyroid dose as TSH is decreased. - obtain an echo. - consult cardiology. Generalized weakness/ encephalopathy The pt was able to ambulate in the hospital but not when she was discharged home. She also developed confusion. May be s/t fractures above and pneumonia. The pt also had urinary retention which likely contributed to encephalopathy. TSH is low but free T3 and T4 WNL. Ammonia, ESR and CRP levels are elevated. - PT/OT. - neurology and NS following. - speech therapy consult pending. Pulmonary fibrosis/ asthma/ HCAP/ Acute respiratory failure The pt was discharged on Ceftin and azithromycin. Repeat CXR with worsening infiltrates. Pt desatting and now requiring a NRB. ABG noted. - continue vancomycin and Zosyn to treat for HCAP. - continued home inhalers and oxygen as needed. - incentive spirometry. - blood and sputum cultures. - diurese with IV Lasix as needed. - BiPAP if needed. - speech therapy evaluation pending to assess for aspiration. - transfer to ICU and consult glove maker. Urinary retention/ incontinence Likely s/t fractures and relative immobility during hospitalization. - continue Sanders catheter. - neurosurgical reevaluation is pending. Hypokalemia Likely s/t decreased PO intake. - IVFs with KCl. - follow BMP and replete as needed. PPx: Lovenox. Discharge Planning The pt will be transferred to the ICU and the glove maker was consulted. More than 45 minutes of critical care time was required to manage the pt's multiple acute problems outside of counseling and procedures. Rex Moreno DO Nov 06, 2016 09:41
[2016-11-06] MEDS: SODIUM CHLORIDE 0.9% FLUSH 5 ML FLUSH FLUSH SCH ×2 (09:42→20:39)
[2016-11-06] MEDS ORDERED: FUROSEMIDE 40 MG/4 ML VIAL IV PUSH ONE (09:45)
[2016-11-06] MEDS ORDERED: MORPHINE SULFATE 4 MG/ML INJ IV PUSH ONE (09:45)
[2016-11-06] MEDS ORDERED: POTASSIUM CHLORIDE 25 MEQ EFFERVESCENT TAB PO ONE (10:00)
[2016-11-06] MEDS: VANCOMYCIN INJ 1,250 MG in SODIUM CHLOR 0.9% 250 ML INJ 250 ML IV SCH (12:43)
--- NOTE | 2016-11-06 12:57 | PD.CONS ---
[facility] Service Critical Care Medicine Consult Requested By Dr. Moreno Reason for Consult Acute hypoxemic respiratory failure Exacerbation of COPD/pulmonary fibrosis Probable pneumonia/sepsis Atrial fibrillation with rapid ventricular response History of pulmonary fibrosis Primary Care Physician Kandy Smart MD History of Present Illness Patient is a 71-year-old female with history of pulmonary fibrosis, asthma, probable COPD on home oxygen who had a recent fall at home and sustained C7/ T1 fractures. She was evaluated by neurosurgery and conservatively managed and placed in a cervical collar. She was discharged home on 11/04/16. The pt developed inability to ambulate at home and also had urinary retention. Patient 's also noticed that she had been more confused. ER workup included a CT of the head which was negative, CT of the abdomen pelvis showed markedly distended bladder with mild to moderate hydronephrosis. Sanders catheter was inserted. Chest x-ray showed increasing bilateral infiltrates. Patient was admitted to the hospitalist service, on broad-spectrum antibiotics with Zosyn and vancomycin, breathing treatments. Neurology Dr. Xiong was also consulted Today was noted to have increasing shortness of breath today, tachypnea and hypoxia requiring a partial nonrebreather. Also noted to have A flutter with rapid ventricular response. Cardizem boluses 2 was given on Cardizem infusion was started. Because of her worsening respiratory failure patient was moved to the ICU. Critical care medicine consulted and I immediately evaluated the patient. She is in moderate distress on partial nonrebreather breathing 35-40/ m. Chest exam shows bilateral crackles and wheezes. I have added Solu-Medrol and scheduled breathing treatments and ordered BiPAP 10 over 5. I explained to the patient and the that patient may need endotracheal intubation and mechanical ventilation if she is not improving with BiPAP. Review of Systems ROS Limitations: Other (as per HPI) Past Family Social History Allergies: Coded Allergies: Betadine (Verified Allergy, Mild, Rash, 11/04/16) Uncoded Allergies: IODINE PAINT (Allergy, Severe, Rash, 06/30/12) Past Medical History Asthma Pulmonary fibrosis GERD Hemochromatosis C7/T1 fractures Past Surgical History C7, T1 fracture conservatively managed Tonsillectomy Cholecystectomy Lumbar and cervical spine surgery Hysterectomy Left salivary gland surgery Breast reduction Reported Medications Azithromycin 500 Mg Tab 500 Mg PO DAILY Ceftin (Cefuroxime Axetil) 500 Mg Tab 500 Mg PO BID Vicodin (Hydrocodone-Acetaminophen) 5-300 Mg Tab 2 Tab PO Q6H PRN Tramadol (Tramadol HCl) 50 Mg Tab 50 Mg PO Q6H PRN Proair Hfa 8.5 GM Inh (Albuterol Sulfate) 90 Mcg/Act Aer 1 Puff INH Q4H PRN Meclizine 25 (Meclizine HCl) 25 Mg Tab 1 Tab PO TID Ondansetron HCl 4 Mg Tab 1 Tab PO DAILY Librax (Chlordiazepoxide/Clidinium) 5-2.5 Mg Cap 1 Cap PO DAILY PRN [oxygen] 1 Inhaler INH DAILY Levocetirizine 5 Mg Tab 5 Mg PO DAILY [place] Thyroid (Thyroid) 120 Mg Tab 120 Mg PO DAILY Alprazolam 0.5 Mg Tab 0.5 Mg PO BID PRN Budesonide Neb 1 Mg/2 Ml Neb 0.5 Mg NEB BID Bupropion HCl 100 Mg Tab 150 Mg PO BID Combivent Respimat Inh (Ipratropium-Albuterol Inh) 20-100 Senior Living/Act Aero 1 Puff INH BID Estradiol Patch 84 HR (Estradiol) 0.1 Mg/24 Hr Patch 1 Patch T-DERMAL Q7D PRN Remove old patch and discard when new patch being placed.Change same days each week. Montelukast (Montelukast Sodium) 10 Mg Tab 10 Mg PO HS Xolair Inj (Omalizumab) 150 Mg Vial 150 Mg SQ MONTHLY Prednisone 5 Mg Tab 5-10 Mg PO DAILY PRN Temazepam 15 Mg Cap 15 Mg PO HS PRN Active Ordered Medications Reviewed Family History Reviewed Social History Denies tobacco use history of exposure to passive smoking. Drinks a glass wine per day Physical Exam Vital Signs Vital Signs Date Time Temp Pulse Resp B/P Pulse Ox O2 Delivery O2 Flow Rate FiO2 11/06/16 11:00 152 11/06/16 11:00 98.4 137 30 114/79 90 11/06/16 10:00 160 11/06/16 09:00 147 11/06/16 09:00 100/71 11/06/16 08:45 101/72 11/06/16 08:00 168 11/06/16 07:00 105 11/06/16 07:00 98.7 102 22 103/66 97 11/06/16 07:00 97 10.00 11/06/16 06:00 150 11/06/16 05:00 98 11/06/16 04:00 99 11/06/16 03:00 85 11/06/16 02:00 97 11/06/16 01:00 101 11/06/16 00:00 112 11/05/16 23:00 100 11/05/16 22:00 103 11/05/16 21:05 100.6 110 16 155/93 92 11/05/16 21:00 104 11/05/16 20:00 112 11/05/16 19:51 90 Nasal Cannula 5.00 11/05/16 19:00 117 11/05/16 18:00 118 11/05/16 17:00 108 11/05/16 16:00 87 11/05/16 15:00 98.7 86 16 85/56 96 11/05/16 15:00 81 11/05/16 14:00 89 11/05/16 13:00 95 Physical Exam GENERAL: Critically ill appearing 71-year-old female. Tachypneic in moderate distress SKIN: Warm and dry. HEAD: Atraumatic. Normocephalic. EYES: Pupils equal and round. Pupils are 3 mm bilateral and reactive. ENT: No nasal bleeding or discharge. Partial nonrebreather in place NECK: Trachea midline. No JVD. Cervical collar in place. CARDIOVASCULAR: Tachycardic. Irregularly, irregular rhythm. Atrial fibrillation with RVR RESPIRATORY: Air entry equal bilaterally with diffuse rhonchi and crackles. GASTROINTESTINAL: Abdomen soft, no tenderness, guarding or rigidity. MUSCULOSKELETAL: No obvious deformities. No clubbing. No cyanosis. Moves all 4 extremities. NEUROLOGICAL: Awake and alert, oriented to person only. Partially oriented to place and time. No obvious cranial nerve deficits. Motor grossly within normal limits. Laboratory Laboratory Tests Test 11/05/16 11/06/16 11/06/16 11/06/16 14:52 00:00 05:45 08:45 Erythrocyte Sedimentation Rate 52 Ammonia 37 Free Thyroxine 0.97 Free Triiodothyronine (T3) 2.84 pg/dL Blood Gas Puncture Site LT RADIAL Blood Gas Patient Temperature 98.6 Blood Gas HCO3 23 Blood Gas Base Excess -1.3 Blood Gas Oxygen Saturation 95 Arterial Blood pH 7.38 Arterial Blood Partial 40 Pressure CO2 Arterial Blood Partial 111 Pressure O2 Arterial Blood Oxygen Content 16.8 Arterial Blood 1.3 Carboxyhemoglobin Arterial Blood Methemoglobin 1.3 Blood Gas Hemoglobin 12.4 Oxygen Delivery Device Partial Rebreather Blood Gas Liter Flow 15 White Blood Count 12.2 Red Blood Count 3.53 Hemoglobin 11.6 Hematocrit 34.8 Mean Corpuscular Volume 98.6 Mean Corpuscular Hemoglobin 32.8 Mean Corpuscular Hemoglobin 33.3 Concent Red Cell Distribution Width 13.2 Platelet Count 131 Mean Platelet Volume 8.8 Neutrophils (%) (Auto) 82.4 Lymphocytes (%) (Auto) 12.4 Monocytes (%) (Auto) 4.7 Eosinophils (%) (Auto) 0.2 Basophils (%) (Auto) 0.3 Neutrophils # (Auto) 10.1 Lymphocytes # (Auto) 1.5 Monocytes # (Auto) 0.6 Eosinophils # (Auto) 0.0 Basophils # (Auto) 0.0 CBC Comment DIFF FINAL Differential Comment Sodium Level 133 134 Potassium Level 3.9 3.5 Chloride Level 100 101 Carbon Dioxide Level 25.0 25.6 Anion Gap 8 7 Blood Urea Nitrogen 8 9 Creatinine 0.74 0.66 Estimat Glomerular Filtration 78 89 Rate Random Glucose 90 92 Calcium Level 7.6 7.6 Lactic Acid Level 1.0 Troponin I LESS THAN 0.02 Date/Time Procedure Status Source Growth 11/05/16 00:35 Aerobic Blood Culture - Preliminary Resulted Blood Peripheral NO GROWTH IN 1 DAY 11/05/16 00:35 Anaerobic Blood Culture - Preliminary Resulted Blood Peripheral NO GROWTH IN 1 DAY Result Diagram: 11/06/16 0545 11/06/16 0845 Imaging Imaging studies reviewed Assessment and Plan Assessment and Plan NEURO: Acute metabolic encephalopathy C7-T1 fracture (T1 vertebral body comminuted fracture, bilateral C7 pedicle fracture extending to the right facet. Remote history of anterior C6-C7 and C4-C5 fusion with plate placement. -Pain control with when necessary IV morphine and Lortab -Otherwise minimize sedation -CT head negative for acute findings. Change in mental status most likely from metabolic encephalopathy RESP: Acute hypoxemic respiratory failure Pulmonary fibrosis/COPD exacerbation Probable HCAP -Place on BiPAP 12 over 5. Titrate to keep respiratory rate less than 30 saturation more than 90 -DuoNeb every 4 hours scheduled and when necessary -IV Solu-Medrol 125 mg 1 and 60 every 6, pulmonary consult -Broad-spectrum antibiotics with Zosyn and Vanco -If not improving in the next one hour patient will need intubation and mechanical ventilation CVS A Flutter with RVR Fluid overload -Cardizem bolus followed by infusion -2-D echo and cardiology consult ordered by hospitalist pending at this time -Troponin negative -IV Lasix 40 mg 1 and 40 every 12 GI: -NPO except meds. IV Protonix : Hydronephrosis from urinary retention/obstruction -Monitor renal function closely. Sanders catheter. -Check renal ultrasound to ensure resolution of hydronephrosis ID: Probable healthcare associated pneumonia Probable sepsis -Continue IV vancomycin and Zosyn -Follow up on blood culture and sputum culture HEME: -Monitor CBC, CMP ENDO: Hypokalemia -Electrolyte replacement per protocol. Sliding scale insulin if needed PROPH: -Bilateral lower extremity SCDs. Subcutaneous heparin for DVT prophylaxis. IV Protonix for GI prophylaxis LINES: -Utilize peripheral IVs, central line if needed CC time 62 min excluding procedures Code Status Full Discussed Condition With Brinda Kapoor MD Nov 06, 2016 12:57
[2016-11-06] MEDS ORDERED: MAGNESIUM SULFATE INJ 4 GM in SODIUM CHLORIDE 0.9% INJ 92 ML IV PRN (13:00)
[2016-11-06] MEDS ORDERED: POTASSIUM CHLOR 20 MEQ PREMIX 100 ML IV PRN (13:00)
[2016-11-06] MEDS ORDERED: POTASSIUM CHLOR 40 MEQ PREMIX 100 ML IV-CENTRAL PRN (13:00)
[2016-11-06] MEDS ORDERED: MAGNESIUM SULFATE INJ 2 GM in SODIUM CHLORIDE 0.9% INJ 96 ML IV PRN (13:00)
[2016-11-06] MEDS ORDERED: RESP: ALBUTEROL 2.5 MG/IPRATROPIUM 0.5 MG NEB (SCH) NEB ONE (13:00)
[2016-11-06] MEDS ORDERED: POTASSIUM PHOSPHATE INJ 30 MMOL in SODIUM CHLOR 0.9% 250 ML INJ 250 ML IV PRN (13:00)
[2016-11-06] MEDS ORDERED: POTASSIUM CL 40 MEQ/30 ML LIQ UDC PO/TUBE PRN ×2 (13:00)
[2016-11-06] MEDS ORDERED: MAGNESIUM OXIDE 400 MG TAB PO PRN (13:00)
[2016-11-06] MEDS ORDERED: POTASSIUM PHOSPHATE MONOBASIC 500 MG TAB PO PRN (13:00)
[2016-11-06] MEDS ORDERED: POTASSIUM PHOSPHATE MONOBASIC 500 MG TAB PO/TUBE PRN (13:00)
[2016-11-06] MEDS ORDERED: methylPREDNISolone SOD SUCC 125 MG/2 ML VIAL IV PUSH ONE (13:30)
--- NOTE | 2016-11-06 13:36 | OTSOAPIP ---
TIME SESSION COMPLETED: AM TREATMENT TIME: 0 MINS. CHART REVIEWED. RECEIVED OCCUPATIONAL THERAPY EVALUATION FROM DR. NEUMANN. UPON ARRIVAL, RACHELLE NEWMAN REPORTED PATIENT PRESENTED WITH TACHYPNEA AND HYPOXIA REQUIRING A PARTIAL NONREBREATHER AND HAD FLUTTER WITH RAPID VENTRICULAR RESPONSE. SHE INFORMED PATIENT WILL BE TRANSFERRING TO ICU DUE TO CHANGE IN STATUS AND WORSENING RESPIRATORY FAILURE. PLEASE RECONSULT OCCUPATIONAL THERAPY IF NEEDED WHEN STABLE. INTERDISCIPLINARY COMMUNICATION: REVIEWED ELECTRONIC MEDICAL RECORD, SPOKE WITH RACHELLE NEWMAN Therapist: Elena Seay, OTR/L Signature on file
[2016-11-06] MEDS: FUROSEMIDE 40 MG/4 ML VIAL IV PUSH SCH ×2 (13:46→17:26)
[2016-11-06] MEDS ORDERED: MORPHINE SULFATE 4 MG/ML INJ IV ONE ×2 (14:00→14:15)
[2016-11-06] MEDS: POTASSIUM CHLORIDE 20 MEQ CONTROLLED RELEASE TAB PO SCH ×2 (14:00→21:00)
[2016-11-06 14:29] LABS: BLOOD GAS BASE EXCESS -0.3 mmol/L (-2-2); BLOOD GAS CARBOXYHEMOGLOBIN 1.4 % (0-4); BLOOD GAS HCO3 24 mmol/L (22-26); BLOOD GAS METHEMOGLOBIN 1.2 % (0-2); BLOOD GAS O2 HGB SATURATION 87 % (90-100); BLOOD GAS OXYGEN CONTENT 15.5 Vol % (12.0-20.0); BLOOD GAS PCO2 41 mmHg (38-42); BLOOD GAS PO2 59 mmHg (61-120); BLOOD GAS TOTAL HGB 12.7 G/DL (12.0-16.0); TEMP CORR TO 98.6
[2016-11-06 14:30] LABS: CRITICAL VALUE YES; OXYGEN DEVICE BiPAP
[2016-11-06 14:31] LABS: DRAW SITE LT RADIAL; FIO2 50 %; NUMBER OF ARTERIAL PUNCTURES 1; STAT NO; ULNAR PULSE PRESENT; VENT SETTINGS IPAP12EPAP5
[2016-11-06] MEDS ORDERED: LORazepam 2 MG/ML VIAL ONE ×2 (14:32→14:54)
[2016-11-06] MEDS ORDERED: LORazepam 2 MG/ML VIAL IV PUSH ONE (15:00)
[2016-11-06] MEDS: PANTOPRAZOLE SODIUM 40 MG VIAL IV PUSH SCH (15:00)
[2016-11-06] MEDS ORDERED: LORazepam 2 MG/ML VIAL IVP ONE (15:00)
[2016-11-06 15:06] LABS: MAGNESIUM 1.6 MG/DL (1.5-2.5)
[2016-11-06] MEDS ORDERED: ETOMIDATE 20 MG/10 ML VIAL ONE (15:07)
[2016-11-06] MEDS ORDERED: ROCURONIUM INJ 50 MG/5 ML VIAL ONE (15:08)
[2016-11-06] MEDS ORDERED: MIDAZOLAM HCL 5 MG/ML VIAL (1 ML) ONE (15:08)
--- NOTE | 2016-11-06 15:11 | HHI.NSPN ---
History Interval History 71-year-old female who apparently tripped and fell this morning when her leg gave out on her, striking the right side of her neck and lower back and head with questionable loss of consciousness. The patient is somewhat amnestic of the event and the patient's is here who is a retired [employer]. She has chronic low back pain along with radiculopathy has had two lumbar spine surgeries, the last one undertaken by Dr. Garay at L4-5 level fusion which she says were not successful and previously she had surgery L5-S1 level which was successful as well as two cervical spine surgeries involving anterior C4-5 and another one at C6-7 fusion with plate placement. She has had chronic weakness in the right upper extremity with intermittent paresthesias and numbness which is chronic. Her neck pain at this point radiates into the shoulders and is new and she has chronic low back pain exacerbated by this fall also. Workup included CT scan of the complete spine which reveals T1 moderate vertebral body compression fracture which is comminuted with a slight buckling posteriorly mostly ventrally. There is also involvement of the C7 bilateral pedicles which are fractured as well as the right facet. There is a C6-7 interbody fusion with anterior cervical plate in place, as well as C4-5 fusion with anterior cervical plate in place, and a possible C5-C6 level also being fused. CT of the thoracic spine does not reveal any fractures other than the T1 fracture visualized on the cervical spine also. CT of the lumbar spine reveals an L4-S1 fusion interbody and L4-L5 pedicle screws. There is also L2 endplate Schmorl's node with possible anterior superior osteophyte fracture with some vertebral body height loss and sclerosis. MRI scan of the cervical and lumbar spine did not reveal any spinal cord compression or significant stenosis. She is currently being transferred to the intensive care unit for worsening pulmonary edema/pneumonia along with tachycardia with atrial flutter/fibrillation. Exam Results Vital Signs Date Time Temp Pulse Resp B/P Pulse Ox O2 Delivery O2 Flow Rate FiO2 11/06/16 13:11 95 70 11/06/16 11:00 152 11/06/16 11:00 98.4 30 114/79 11/06/16 08:59 Partial Rebreather 15.00 Intake and Output 11/05/16 11/05/16 11/06/16 08:00 16:00 00:00 Intake Total 1267 ml Output Total 750 ml Balance 517 ml Physical Examination Neck: [place] J collar in place Resp: Tachypneic with scattered rhonchi on BiPAP machine.. Heart: Tachycardic with irregular rhythm Abd: Soft positive bs Skin: No cyanosis or erythema Muscle: Moves all 4 extremities with good strength. [place] cervical collar in place. Neuro: Pt sedated and her states that she just received morphine. Follows commands well. Speech clear and appropriate. Pupils equal Moves all 4 extremities although would not cooperate for a good motor strength evaluation. Lab, Micro, Other Results Last Impressions Head CT 11/04/162325 Signed Impressions: Service Date/Time: Friday, November 04, 2016 23:45 - CONCLUSION: No acute intracranial findings. Jimmy Felton MD Chest X-Ray 11/04/162325 Signed Impressions: Service Date/Time: Friday, November 04, 2016 23:40 - CONCLUSION: Worsening diffuse interstitial infiltrate Jimmy Felton MD Abdomen/Pelvis CT 11/04/16 0000 Signed Impressions: Service Date/Time: Friday, November 04, 2016 23:48 - CONCLUSION: Markedly dilated urinary bladder with mild-moderate bilateral hydronephrosis Jimmy Felton MD Laboratory Tests Test 11/06/16 11/06/16 11/06/16 11/06/16 00:00 05:45 08:45 14:05 Blood Gas Puncture Site LT RADIAL Blood Gas Patient Temperature 98.6 Blood Gas HCO3 23 Blood Gas Base Excess -1.3 Blood Gas Oxygen Saturation 95 Arterial Blood pH 7.38 Arterial Blood Partial 40 Pressure CO2 Arterial Blood Partial 111 Pressure O2 Arterial Blood Oxygen Content 16.8 Arterial Blood 1.3 Carboxyhemoglobin Arterial Blood Methemoglobin 1.3 Blood Gas Hemoglobin 12.4 Oxygen Delivery Device Partial Rebreather Blood Gas Liter Flow 15 White Blood Count 12.2 Red Blood Count 3.53 Hemoglobin 11.6 Hematocrit 34.8 Mean Corpuscular Volume 98.6 Mean Corpuscular Hemoglobin 32.8 Mean Corpuscular Hemoglobin 33.3 Concent Red Cell Distribution Width 13.2 Platelet Count 131 Mean Platelet Volume 8.8 Neutrophils (%) (Auto) 82.4 Lymphocytes (%) (Auto) 12.4 Monocytes (%) (Auto) 4.7 Eosinophils (%) (Auto) 0.2 Basophils (%) (Auto) 0.3 Neutrophils # (Auto) 10.1 Lymphocytes # (Auto) 1.5 Monocytes # (Auto) 0.6 Eosinophils # (Auto) 0.0 Basophils # (Auto) 0.0 CBC Comment DIFF FINAL Differential Comment Sodium Level 133 134 Potassium Level 3.9 3.5 Chloride Level 100 101 Carbon Dioxide Level 25.0 25.6 Anion Gap 8 7 Blood Urea Nitrogen 8 9 Creatinine 0.74 0.66 Estimat Glomerular Filtration 78 89 Rate Random Glucose 90 92 Calcium Level 7.6 7.6 Lactic Acid Level 1.0 Troponin I LESS THAN 0.02 Phosphorus Level 1.9 Magnesium Level 1.6 B-Type Natriuretic Peptide 118 Test 11/06/16 14:19 Blood Gas Puncture Site LT RADIAL Blood Gas Patient Temperature 98.6 Blood Gas HCO3 24 Blood Gas Base Excess -0.3 Blood Gas Oxygen Saturation 87 Arterial Blood pH 7.39 Arterial Blood Partial 41 Pressure CO2 Arterial Blood Partial 59 Pressure O2 Arterial Blood Oxygen Content 15.5 Arterial Blood 1.4 Carboxyhemoglobin Arterial Blood Methemoglobin 1.2 Blood Gas Hemoglobin 12.7 Oxygen Delivery Device BiPAP Blood Gas Ventilator Setting [id number] Blood Gas Inspired Oxygen 50 Date/Time Procedure Status Source Growth 11/05/16 00:35 Aerobic Blood Culture - Preliminary Resulted Blood Peripheral NO GROWTH IN 1 DAY 11/05/16 00:35 Anaerobic Blood Culture - Preliminary Resulted Blood Peripheral NO GROWTH IN 1 DAY Medical Decision Making Impression and Plan 1. T1 vertebral body comminuted fracture with slight buckling posteriorly and mild to moderate vertebral body height collapse. There is also bilateral C7 pedicle fracture extending to the right facet. Remote history of anterior C6-C7 and C4-C5 fusion with plate placement. No cervical or lumbar spinal stenosis noted on MRI scan. Thoracic MRI scan pending. 2. L2 anterior superior endplate osteophyte. There is vertebral body fracture with associated Schmorl's node and some vertebral body height loss which appears to be chronic. She has previous L4-S1 interbody and posterolateral fusion, pedicle screws in place. She has chronic low back pain with sciatica, undergoing interventional pain management by Dr. Alexis. 3. Worsening pulmonary condition with edema and infiltrates. 4. Atrial fibrillation/flutter with tachycardia. Continue with cervical collar for the C7 and T1 fractures. Once cardiopulmonary condition is more stable we'll obtain further workup with a thoracic spine MRI scan. Syed Bowden MD Nov 06, 2016 15:11
[2016-11-06] MEDS ORDERED: PROPOFOL 1000 MG/100 ML INJ 100 ML ONE (15:17)
--- NOTE | 2016-11-06 15:26 | PD.PROCEDR ---
Procedure Note Procedure After the risks and benefits were discussed the following procedure was performed: INTUBATION: The patient was put in optimal position for the procedure. Rapid sequence intubation was initiated by me using 20 milligrams of etomidate IV and 5 milligrams of Versed IV. NM Paralysis with Rocuronium 50 mg x1. Glidescope #3 blade Grade 1 view single attempt. The patient was intubated with a 7.5 cuffed endotracheal tube. Tube placement was confirmed by visualization of the tube and balloon passing through the cords, capnometry and subsequent chest x-ray. Breath sounds were equal and well aerated bilaterally postintubation. No breath sounds over stomach. Patient tolerated procedure well. Brinda Marquez MD Nov 06, 2016 15:26
[2016-11-06] MEDS ORDERED: MIDAZOLAM HCL 5 MG/5 ML VIAL IV PUSH ONE (15:30)
[2016-11-06] MEDS ORDERED: ETOMIDATE 20 MG/10 ML VIAL IV PUSH ONE (15:30)
[2016-11-06] MEDS ORDERED: ROCURONIUM INJ 50 MG/5 ML VIAL IV ONE (15:30)
[2016-11-06 16:08] LABS: BLOOD GAS BASE EXCESS -1.4 mmol/L (-2-2); BLOOD GAS CARBOXYHEMOGLOBIN 1.2 % (0-4); BLOOD GAS HCO3 24 mmol/L (22-26); BLOOD GAS O2 HGB SATURATION 95 % (90-100); BLOOD GAS OXYGEN CONTENT 15.7 Vol % (12.0-20.0); BLOOD GAS PCO2 48 mmHg (38-42); BLOOD GAS PO2 103 mmHg (61-120); BLOOD GAS TOTAL HGB 11.6 G/DL (12.0-16.0); CRITICAL VALUE NO; DRAW SITE LT RADIAL; FIO2 70 %; NUMBER OF ARTERIAL PUNCTURES 1; OXYGEN DEVICE VENTILATOR; STAT NO; TEMP CORR TO 98.6; ULNAR PULSE PRESENT; VENT SETTINGS A/C 16/450/8PEEP
--- NOTE | 2016-11-06 16:09 | RADRPT ---
EXAM DATE/TIME: 11/06/2016 15:43 [facility] COMPARISON: CHEST SINGLE AP, November 06, 2016, 8:23. INDICATIONS : Evaluate for ET tube placement. MEDICAL HISTORY : Cardiovascular disease. Hypertension. Chronic obstructive pulmonary disease. Asthma. SURGICAL HISTORY : Hysterectomy. Spinal fusion, hernia repair, lap choley. ENCOUNTER: Subsequent ACUITY: 4 - 6 days PAIN SCORE: Non-responsive. LOCATION: Chest FINDINGS: ET tube, nasogastric tube across the GE junction. Mild interstitial edema is present. There is no a lveolar consolidation, pleural effusion or pneumothorax. CONCLUSION: Mild interstitial edema. Felice Malave MD FACR on November 06, 2016 at 16:03 Board Certified Radiologist. This report was verified electronically.
[2016-11-06] MEDS: RESP: ALBUTEROL 2.5 MG/IPRATROPIUM 0.5 MG NEB (SCH) NEB ×3 (16:45→23:31)
[2016-11-06] MEDS: POTASSIUM CHLOR 20 MEQ PREMIX 100 ML IV PRN ×2 (17:31→18:12)
[2016-11-06] MEDS: SODIUM PHOSPHATE INJ 30 MMOL in SODIUM CHLOR 0.9% 250 ML INJ 240 ML IV PRN (20:38)
[2016-11-06] MEDS: CHLORHEXIDINE 0.12% (ORAL KIT) 15 ML CUP MT SCH (20:39)
[2016-11-06] MEDS: MONTELUKAST SODIUM 10 MG TAB PO SCH (21:54)
--- NOTE | 2016-11-06 22:05 | MB ---
cc: LALI ESCALERA M.D. DATE OF CONSULTATION: 11/06/2016 REASON FOR CONSULTATION Respiratory failure. HISTORY OF PRESENT ILLNESS Mrs. Rodríguez is a 71-year-old female recently hospitalized for a C7-T1 fracture, discharged home in stable condition, became weaker at home and brought back to the hospital with evidence of respiratory distress. She does have chronic pulmonary fibrosis and associated asthma component. Her respiratory distress has worsened. She is intubated and mechanically ventilated presently on ventilatory support. History obtained from records. The patient does not provide any history. PAST MEDICAL HISTORY Her past medical history is that of - 1. Pulmonary fibrosis. 2. Bronchial asthma. 3. Acid reflux disease. 4. Hemochromatosis. 5. C7-T1 fracture as above. 6. She had a T&A as a child. 7. Previous cholecystectomy. 8. Lumbar spine surgery. 9. Cervical spine surgery. 10. Hysterectomy. 11. Left parotid gland surgery. 12. Breast reduction surgery. FAMILY HISTORY Noncontributory. ALLERGIES BETADINE. SOCIAL HISTORY Does not smoke or drink. Drinks wine on occasion. No TB and no industrial exposure. MEDICATION AT PRESENT 1. Thyroid replacement therapy. 2. Solu-Medrol IV. 3. Ipratropium. 4. Albuterol nebulizer. 5. Pantoprazole. 6. Lasix. 7. Potassium. 8. Vancomycin. REVIEW OF SYSTEMS Twelve-point review of systems as per HPI and past history otherwise negative. PHYSICAL EXAMINATION VITAL SIGNS: Temperature 98, pulse 100, respiration 18, blood pressure 114/70, oxygen saturation 100%, 60% inspired oxygen fraction on ventilatory support. Chest x-ray: Diffuse interstitial change. HEENT: Unremarkable. Eyes without icterus. NECK: Without adenopathy or thyroid enlargement. Cervical collar in place. CHEST: A few scattered rhonchi bilaterally. CARDIAC: PMI distant. Irregularity noted. ABDOMEN: Lax. Audible bowel sounds. EXTREMITIES: No clubbing, cyanosis or edema. IMAGING Chest x-ray: Diffuse interstitial change. LABORATORY DATA White count 12,000, hemoglobin 11, hematocrit 34, platelets 131,000. IMPRESSION 1. Respiratory failure. 2. Pulmonary fibrosis. 3. Bronchial asthma. 4. Cough, probable aspiration. 5. C7-T1 fracture. 6. Hemochromatosis. 7. Acid reflux disease. PLAN The patient will be maintained on ventilatory support. Pulmonary toilet undertaken. Continue her antibiotic therapy. Followup her chest x-ray. Wean off ventilatory support as tolerated. Her weakness at home is probably related to C7-T1 fracture, however other etiologies need to be considered as well. There are no signs of acute infection at present. The patient will be followed closely and depending on progress proceed accordingly. I do thank you for asking me to partake in Mrs. Rodríguez's care. Lali Escalera MD WWW/ELAINA /5:12 PM /8:56 AM
[2016-11-06] MEDS: methylPREDNISolone SOD SUCC 125 MG/2 ML VIAL IV PUSH SCH (23:00)
--- NOTE | 2016-11-06 23:49 | RADRPT ---
EXAM DATE/TIME: 11/06/2016 22:24 [facility] COMPARISON: No previous studies available for comparison. INDICATIONS : Hydronephrosis. MEDICAL HISTORY : Gastroesophageal reflux disease. Chronic obstructive pulmonary disease. Pulmonary fibrosis. Cervic al and thoracic fracture. SURGICAL HISTORY : Hysterectomy. Tonsillectomy. Cholecystectomy. Lumbar and Cervical spine surgery. Salivary gland surg marifer. ENCOUNTER: Initial ACUITY: 1 day PAIN SCORE: Nonresponsive. LOCATION: Bilateral flank MEASUREMENTS: RIGHT KIDNEY: 9.9 x 4.8 x 4.6 cm LEFT KIDNEY: 11.1 x 3.8 x 5.6 cm FINDINGS: RIGHT KIDNEY: Renal cortex is normal in thickness and echotexture. No hydronephrosis, stone, or mass. LEFT KIDNEY: There is a round hypoechoic smooth margin lesion lateral in the midpole which measures 2.0 x 2.1 x 1. 8 cm. There is some minimal through transmission suggesting that this represents a complicated cyst. No evidence of hydronephrosis. Renal cortical thickness is normal. BLADDER: Within normal limits given the degree of distension. CONCLUSION: Probable complicated cyst midpole left kidney measuring 2.0 cm. Otherwise negative exam. No evidenc e of hydronephrosis. Scott Cantor MD on November 06, 2016 at 23:46 Board Certified Radiologist. This report was verified electronically.
[2016-11-07] VITALS (19 sets, daily range): BP systolic 87–115; BP diastolic 51–67; PULSE 78–108; RESP 17–28; TEMP 97.9–99.5; O2SAT 93–99
[2016-11-07] MEDS ORDERED: DILTIAZEM HCL 60 MG TAB PO ONE (00:15)
[2016-11-07] MEDS ORDERED: MAGNESIUM SULFATE 1 GM PREMIX 100 ML IV ONE (00:15)
[2016-11-07] MEDS: MORPHINE SULFATE 4 MG/ML INJ IV PRN ×3 (00:18→10:00)
[2016-11-07] MEDS: VANCOMYCIN INJ 1,250 MG in SODIUM CHLOR 0.9% 250 ML INJ 250 ML IV SCH ×2 (00:39→12:00)
[2016-11-07] MEDS: ALPRAZolam 0.5 MG TAB PO PRN (00:49)
[2016-11-07] MEDS: PIPERACIL-TAZO 4.5 GM PREMIX 100 ML IV SCH ×4 (03:04→21:30)
[2016-11-07] MEDS: RESP: ALBUTEROL 2.5 MG/IPRATROPIUM 0.5 MG NEB (SCH) NEB ×6 (03:44→23:48)
[2016-11-07] MEDS ORDERED: PROPOFOL 1000 MG/100 ML INJ 100 ML ONE (05:01)
[2016-11-07] MEDS: methylPREDNISolone SOD SUCC 125 MG/2 ML VIAL IV PUSH SCH ×3 (05:12→21:30)
[2016-11-07] MEDS: HEPARIN SODIUM - SQ 10,000 UNITS/ML VIAL SQ SCH ×3 (05:12→21:31)
[2016-11-07] MEDS: THYROID 30 MG TAB PO SCH (05:33)
--- NOTE | 2016-11-07 06:34 | RADRPT ---
EXAM DATE/TIME: 11/07/2016 05:03 [facility] COMPARISON: CHEST SINGLE AP, November 06, 2016, 15:43. INDICATIONS : Shortness of breath. MEDICAL HISTORY : Gastroesophageal reflux disease. Chronic obstructive pulmonary disease. Pulmonary fibrosis. SURGICAL HISTORY : None. ENCOUNTER: Subsequent ACUITY: 4 - 6 days PAIN SCORE: Non-responsive. LOCATION: Bilateral chest FINDINGS: Endotracheal tube tip well above the dhara. Patchy areas of airspace opacity in the medial 3rd of b oth lungs is similar to prior. The heart is normal in size. Gastric tube traverses the [id number]. CONCLUSION: Persistent and stable bilateral air space opacities in the medial lungs. Scott Cantor MD on November 07, 2016 at 6:32 Board Certified Radiologist. This report was verified electronically.
[2016-11-07 06:36] LABS: ALT (GPT) 50 U/L (10-53); ANION GAP 12 MEQ/L (5-15); AST (GOT) 58 U/L (15-37); BICARBONATE 24.3 MEQ/L (21.0-32.0); BLOOD UREA NITROGEN 19 MG/DL (7-18); CHLORIDE 102 MEQ/L (98-107); GLOMERULAR FILTRATION RATE 47 ML/MIN (>89); MAGNESIUM 2.7 MG/DL (1.5-2.5); POTASSIUM 3.1 MEQ/L (3.5-5.1); SODIUM (NA) 138 MEQ/L (136-145)
[2016-11-07 06:37] LABS: ALKALINE PHOSPHATASE 79 U/L (45-117); TOTAL BILIRUBIN ADULT 0.7 MG/DL (0.2-1.0)
[2016-11-07 06:53] LABS: BASOPHIL % 0.1 % (0.0-2.0); HEMATOCRIT 31.8 % (35.0-46.0); HEMO FLAGS DIFF FINAL; LYMPH % 8.3 % (9.0-44.0); LYMPHOCYTE # 0.7 TH/MM3 (1.0-4.8); MEAN CELL VOLUME 98.8 FL (80.0-100.0); MEAN CORPUSCULAR HEMOGLOBIN 32.9 PG (27.0-34.0); MEAN CORPUSCULAR HGB CONC 33.3 % (32.0-36.0); MONO % 2.9 % (0.0-8.0); NEUT % 88.7 % (16.0-70.0); PLATELET COUNT 139 TH/MM3 (150-450); RED BLOOD COUNT 3.22 MIL/MM3 (4.00-5.30); RED CELL DISTRIBUTION WIDTH 13.5 % (11.6-17.2); WHITE BLOOD COUNT 9.1 TH/MM3 (4.0-11.0)
[2016-11-07] MEDS: POTASSIUM CHLOR 40 MEQ PREMIX 100 ML IV-CENTRAL PRN (06:53)
[2016-11-07] MEDS: RESP: BUDESONIDE 0.5 MG/2 ML NEB NEB SCH ×2 (08:09→20:03)
[2016-11-07] MEDS: DILTIAZEM INJ 125 MG in SODIUM CHLORIDE 0.9% INJ 100 ML IV SCH (08:48)
[2016-11-07] MEDS: SODIUM CHLORIDE 0.9% FLUSH 5 ML FLUSH FLUSH SCH ×2 (08:48→21:29)
[2016-11-07] MEDS: DOCUSATE SODIUM 100 MG CAP PO SCH ×2 (08:49→21:30)
[2016-11-07] MEDS: FUROSEMIDE 40 MG/4 ML VIAL IV PUSH SCH (08:49)
[2016-11-07] MEDS: ACETAMINOPHEN/HYDROcodone 325 MG/5 MG TAB PO PRN (08:49)
[2016-11-07] MEDS: buPROPion HCL 100 MG TAB PO SCH ×2 (08:49→21:30)
[2016-11-07] MEDS: DILTIAZEM HCL 60 MG TAB PO SCH ×4 (08:49→21:29)
[2016-11-07] MEDS: CHLORHEXIDINE 0.12% (ORAL KIT) 15 ML CUP MT SCH ×2 (08:50→19:26)
[2016-11-07] MEDS: SENNOSIDES 8.6 MG TAB PO SCH (08:50)
[2016-11-07] MEDS: POTASSIUM CHLORIDE 20 MEQ CONTROLLED RELEASE TAB PO SCH (08:50)
[2016-11-07] MEDS: TIOTROPIUM BROMIDE 18 MCG INH INH SCH (08:50)
[2016-11-07] MEDS: LEVOCETIRIZINE 5 MG PO SCH (08:50)
[2016-11-07] MEDS ORDERED: EPINEPHrine HCL (1:10,000) 1 MG/10 ML SYRINGE ONE (09:47)
[2016-11-07] MEDS ORDERED: LIDOCAINE HCL 2% 100 MG/5 ML SYRINGE ONE (09:47)
[2016-11-07] MEDS ORDERED: ATROPINE SULFATE 1 MG/10 ML SYRINGE ONE (09:47)
--- NOTE | 2016-11-07 09:55 | HHI.CCPN ---
Subjective Remarks/Hospital Course Patient is a 71-year-old female with history of pulmonary fibrosis, asthma, probable COPD on home oxygen who had a recent fall at home and sustained C7/ T1 fractures. She was evaluated by neurosurgery and conservatively managed and placed in a cervical collar. She was discharged home on 11/04/16. The pt developed inability to ambulate at home and also had urinary retention. Patient 's also noticed that she had been more confused. ER workup included a CT of the head which was negative, CT of the abdomen pelvis showed markedly distended bladder with mild to moderate hydronephrosis. Sanders catheter was inserted. Chest x-ray showed increasing bilateral infiltrates. Patient was admitted to the hospitalist service, on broad-spectrum antibiotics with Zosyn and vancomycin, breathing treatments. Neurology Dr. Xiong was also consulted Today was noted to have increasing shortness of breath today, tachypnea and hypoxia requiring a partial nonrebreather. Also noted to have A flutter with rapid ventricular response. Cardizem boluses 2 was given on Cardizem infusion was started. Because of her worsening respiratory failure patient was moved to the ICU. Critical care medicine consulted and I immediately evaluated the patient. She is in moderate distress on partial nonrebreather breathing 35-40/ m. Chest exam shows bilateral crackles and wheezes. I have added Solu-Medrol and scheduled breathing treatments and ordered BiPAP 10 over 5. I explained to the patient and the that patient may need endotracheal intubation and mechanical ventilation if she is not improving with BiPAP. 11/07 Patient is sedated with Diprivan and intubated. Afebrile. On Cardizem drip 5mg/hr, for MRI spine and CT thorax today. Objective Vital Signs Date Time Temp Pulse Resp B/P Pulse Ox O2 Delivery O2 Flow Rate FiO2 11/07/16 08:09 96 45 11/07/16 06:00 87 11/07/16 04:00 98.9 28 103/59 11/06/16 19:00 Mechanical Ventilator 11/06/16 08:59 15.00 Intake and Output 11/06/16 11/06/16 11/07/16 08:00 16:00 00:00 Intake Total 690 ml 810 ml 490 ml Output Total 950 ml 1000 ml 1150 ml Balance -260 ml -190 ml -660 ml Result Diagram: 11/07/16 0458 11/07/16 0458 Other Results Last Impressions Chest X-Ray 11/07/16 0600 Signed Impressions: Service Date/Time: Monday, November 07, 2016 05:03 - CONCLUSION: Persistent and stable bilateral air space opacities in the medial lungs. Scott Cantor MD Renal Ultrasound 11/06/16 0000 Signed Impressions: Service Date/Time: Sunday, November 06, 2016 22:24 - CONCLUSION: Probable complicated cyst midpole left kidney measuring 2.0 cm. Otherwise negative exam. No evidence of hydronephrosis. Scott Cantor MD Head CT 11/04/162325 Signed Impressions: Service Date/Time: Friday, November 04, 2016 23:45 - CONCLUSION: No acute intracranial findings. Jimmy Felton MD Abdomen/Pelvis CT 11/04/16 0000 Signed Impressions: Service Date/Time: Friday, November 04, 2016 23:48 - CONCLUSION: Markedly dilated urinary bladder with mild-moderate bilateral hydronephrosis Jimmy Felton MD Imaging Last Impressions Chest X-Ray 11/07/16 06 Signed Impressions: Service Date/Time: Monday, November 07, 2016 05:03 - CONCLUSION: Persistent and stable bilateral air space opacities in the medial lungs. Scott Cantor MD Renal Ultrasound 11/06/16 0000 Signed Impressions: Service Date/Time: Sunday, November 06, 2016 22:24 - CONCLUSION: Probable complicated cyst midpole left kidney measuring 2.0 cm. Otherwise negative exam. No evidence of hydronephrosis. Scott Cantor MD Head CT 11/04/162325 Signed Impressions: Service Date/Time: Friday, November 04, 2016 23:45 - CONCLUSION: No acute intracranial findings. Jimmy Felton MD Abdomen/Pelvis CT 11/04/16 0000 Signed Impressions: Service Date/Time: Friday, November 04, 2016 23:48 - CONCLUSION: Markedly dilated urinary bladder with mild-moderate bilateral hydronephrosis Jimmy Felton MD Objective Remarks GENERAL: Patient is 71 yo sedated and intubated. SKIN: Warm and dry. HEAD: Normocephalic. EYES: No scleral icterus. No injection or drainage. NECK: Supple, trachea midline. No JVD or lymphadenopathy. CARDIOVASCULAR: Regular rate and rhythm without murmurs, gallops, or rubs. RESPIRATORY: Breath sounds equal bilaterally. No accessory muscle use. GASTROINTESTINAL: Abdomen soft, non-tender, nondistended. MUSCULOSKELETAL: No cyanosis, or edema. Neuro: Sedated A/P Assessment and Plan NEURO: Acute metabolic encephalopathy C7-T1 fracture (T1 vertebral body comminuted fracture, bilateral C7 pedicle fracture extending to the right facet. Remote history of anterior C6-C7 and C4-C5 fusion with plate placement. -Pain control with when necessary IV morphine and Lortab -Change Diprivan to Fentanyl infusion for sedation and analgesia . -CT head negative for acute findings. -For MRI spine today, NSG is following Dr. Bowden RESP: Acute hypoxemic respiratory failure Pulmonary fibrosis/COPD exacerbation Probable HCAP -Continue with vent support keep sat >92% -Bronchodilators, Solumederol 60mg Q6 -ICU vent bundle, for CT chest today, pulm is following-Dr. Escalera -Broad-spectrum antibiotics with Zosyn and Vanco CVS A Flutter with RVR Fluid overload -Monitor HR and BP keep MAP>65mmHg. On Cardizem 60mg QID -For 2D echo to evaLV function, cards is following -Troponin negative GI: - IV Protonix for GI prophylaxis -Start TF-Glucerna 1.5 with goal rate 45ml/hr : Hydronephrosis from urinary retention/obstruction -Monitor renal function closely. Sanders catheter. electrolytes replacement per protocol. -Check renal ultrasound to ensure resolution of hydronephrosis Decrease Lasix 40mg daily ID: Probable healthcare associated pneumonia Probable sepsis -Continue IV vancomycin and Zosyn. Monitor for signs of infections ( Fever, WBC ) -Follow up on blood culture and sputum culture HEME: -Monitor CBC, CMP ENDO: Hypokalemia -Electrolyte replacement per protocol. Sliding scale insulin if needed PROPH: -Bilateral lower extremity SCDs. Subcutaneous heparin for DVT prophylaxis. IV Protonix for GI prophylaxis LINES: -Utilize peripheral IVs, central line if needed CCT 30 mins Glo Winters MD Nov 07, 2016 09:55
--- NOTE | 2016-11-07 11:11 | RADRPT ---
EXAM DATE/TIME: 11/07/2016 10:23 [facility] COMPARISON: No previous studies available for comparison. INDICATIONS : Fall, back pain. MEDICAL HISTORY : None. SURGICAL HISTORY : Fusion, cervical. Fusion, lumbar. Cholecystectomy. ENCOUNTER: Initial ACUITY: 4-6 days PAIN SCORE: 4/10 LOCATION: Back TECHNIQUE: Multiplanar multisequence MRI of the thoracic spine was performed. FINDINGS: VERTEBRA: There is bone marrow edema throughout the T1 vertebral body consistent with fracture. There is minima l height loss. There is also a linear edema in the mid to inferior T5 vertebral body consistent with a fracture. There is no associated height loss. The remaining vertebral body height is maintained. ALIGNMENT: No anterolisthesis or retrolisthesis. CORD: Normal position and configuration. T1-T2: No disc herniation, canal stenosis, or neural foraminal stenosis. T2-T3: No disc herniation, canal stenosis, or neural foraminal stenosis. T3-T4: No disc herniation, canal stenosis, or neural foraminal stenosis. T4-T5: No disc herniation, canal stenosis, or neural foraminal stenosis. T5-T6: No disc herniation, canal stenosis, or neural foraminal stenosis. T6-T7: No disc herniation, canal stenosis, or neural foraminal stenosis. T7-T8: No disc herniation, canal stenosis, or neural foraminal stenosis. T8-T9: No disc herniation, canal stenosis, or neural foraminal stenosis. T9-T10: No disc herniation, canal stenosis, or neural foraminal stenosis. T10-T11: No disc herniation, canal stenosis, or neural foraminal stenosis. T11-T12: No disc herniation, canal stenosis, or neural foraminal stenosis. T12-L1: No disc herniation, canal stenosis, or neural foraminal stenosis. Please refer to today's chest CT examination for description of the lung findings. CONCLUSION: 1. There is a fracture of the T1 vertebral body and T5 vertebral body. No significant height loss is present and there is no retropulsion of any fracture fragment. No canal stenosis is present. 2. Please refer to today's chest CT examination report for description of the pulmonary findings. Jimmy Lara MD on November 07, 2016 at 11:06 Board Certified Radiologist. This report was verified electronically.
--- NOTE | 2016-11-07 11:21 | RADRPT ---
EXAM DATE/TIME: 11/07/2016 10:50 [facility] COMPARISON: CHEST SINGLE AP, November 07, 2016, 5:03. INDICATIONS : Pneumonia; pulmonary fibrosis. RADIATION DOSE: 9.40 CTDIvol (mGy) MEDICAL HISTORY : Cardiovascular disease. Hypertension. Pulmonary fibrosis. SURGICAL HISTORY : Breast reduction, spinal fusion. ENCOUNTER: Initial ACUITY: 1 day PAIN SCALE: 0/10 LOCATION: chest TECHNIQUE: Volumetric scanning of the chest was performed. Using automated exposure control and adjustment of t he mA and/or kV according to patient size, radiation dose was kept as low as reasonably achievable to obtain optimal diagnostic quality images. FINDINGS: There is respiratory motion artifact. LUNGS: There is diffuse severe groundglass attenuation bilaterally in a patchy distribution involving both t he upper and lower lung zones. There are some areas of mild septal thickening suggesting a crazy pavi ng pattern. Trace bilateral pleural effusions are present. There is no pneumothorax. PLEURAE: There are trace bilateral pleural effusions. MEDIASTINUM: The heart and great vessels demonstrate no acute abnormality. There is an enlarged right paratrachea l lymph node measuring 11 mm in short axis diameter. Nasogastric tube and endotracheal tube remain pr esent. AXILLAE: Within normal limits. No lymphadenopathy. MUSCULOSKELETAL: There are degenerative changes of the thoracic spine. MISCELLANEOUS: The visualized upper abdominal organs demonstrate no acute abnormality. Patient is post cholecystecto my. CONCLUSION: Severe diffuse geographic areas of groundglass attenuation bilaterally with trace bilateral pleural e ffusions. The pattern is nonspecific but can be seen with infection and ARDS among other etiologies. Jimmy Lara MD on November 07, 2016 at 11:16 Board Certified Radiologist. This report was verified electronically.
[2016-11-07] MEDS ORDERED: PHARMACY ORDERED LAB XX ONE (11:45)
[2016-11-07] MEDS: fentaNYL DRIP 250 ML IV SCH (11:51)
--- NOTE | 2016-11-07 13:04 | PD.CARD.PN ---
Subjective Subjective Remarks Currently sedated on the vent, Cardizem drip off Objective Medications Current Medications Medications (Trade) Dose Ordered Sig/Stephanie Route Start Time Stop Time Status Last Admin (NS Flush) 2 ml UNSCH PRN FLUSH 11/05/16 02:15 (NS Flush) 2 ml BID FLUSH 11/05/16 09:00 11/07/16 08:48 (Zofran Inj) 4 mg Q6H PRN IVP 11/05/16 02:15 (Heparin Inj) 5,000 units Q8H SQ 11/05/16 06:00 11/07/16 05:12 (Narcan Inj) 0.4 mg UNSCH PRN IV 11/05/16 02:15 (Proair Hfa Inh) 1 puff Q4H PRN INH 11/05/16 08:45 Hold 11/05/16 21:09 (Xanax) 0.5 mg BID PRN PO 11/05/16 08:45 11/07/16 00:49 (Wellbutrin) 150 mg BID PO 11/05/16 09:00 11/07/16 08:49 (Singulair) 10 mg HS PO 11/05/16 21:00 11/06/16 21:54 Patient Own Medication PT OWN MED: (Levocetirizine 5 MG) DAILY PO 11/06/16 09:00 Pharmacy Profile Note 0 ml @ 0 mls/hr UNSCH OTHER 11/05/16 09:00 (Zosyn 4.5 Gm Premix) 100 ml @ 200 mls/hr Q6H IV 11/05/16 10:00 11/07/16 08:48 (Colace) 100 mg BID PO 11/05/16 09:00 11/07/16 08:49 (Senokot) 17.2 mg DAILY PO 11/05/16 09:00 11/07/16 08:50 (Catapres) 0.1 mg Q6H PRN PO 11/05/16 09:15 (Spiriva Inh) 18 mcg DAILY INH 11/05/16 11:00 11/06/16 09:41 Albuterol Sulfate 2 puff 2 puff QID INH 11/05/16 13:00 Hold 11/06/16 12:44 (Vancomycin Inj/ NS 250 ml Inj) 262.5 ml @ 250 mls/hr Q12H IV 11/05/16 12:00 11/07/16 00:39 ([place] 5-325 Mg) 2 tab Q4H PRN PO 11/06/16 09:45 11/07/16 08:49 ([place] 5-325 Mg) 1 tab Q4H PRN PO 11/06/16 08:30 ([place] Thyroid) 90 mg DAILY@06 PO 11/07/16 06:00 Morphine Sulfate 4 mg 4 mg Q4H PRN IV 11/06/16 11:45 11/07/16 10:00 Potassium Chloride 100 ml @ 50 mls/hr Q2H PRN IV-CENTRAL 11/06/16 13:00 11/07/16 06:53 (KCl 20 Meq Premix Inj) 100 ml @ 50 mls/hr Q2H PRN IV 11/06/16 13:00 Potassium Chloride 40 meq 40 meq UNSCH PRN PO/TUBE 11/06/16 13:00 Potassium Chloride 100 ml @ 25 mls/hr UNSCH PRN IV-CENTRAL 11/06/16 13:00 Potassium Chloride 100 ml @ 50 mls/hr Q2H PRN IV 11/06/16 13:00 11/06/16 18:12 (Magnesium Sulfate Inj/NS Inj) 100 ml @ 50 mls/hr UNSCH PRN IV 11/06/16 13:00 Magnesium Oxide 800 mg 800 mg UNSCH PRN PO 11/06/16 13:00 (Magnesium Sulfate Inj/NS Inj) 100 ml @ 50 mls/hr UNSCH PRN IV 11/06/16 13:00 11/07/16 01:13 Potassium Phosphate 2000 mg 2,000 mg Q4H PRN PO 11/06/16 13:00 (Sodium Phosphate Inj/NS 250 ml Inj) 250 ml @ 42 mls/hr UNSCH PRN IV 11/06/16 13:00 11/06/16 20:38 (KCl 40 Meq/30 ml Liq) 40 meq UNSCH PRN PO/TUBE 11/06/16 13:00 Potassium Phosphate 2000 mg 2,000 mg UNSCH PRN PO/TUBE 11/06/16 13:00 (Potassium Phosphate Inj/NS 250 ml Inj) 260 ml @ 42 mls/hr UNSCH PRN IV 11/06/16 13:00 (SoluMEDROL INJ) 60 mg Q8HR IV PUSH 11/06/16 22:00 11/07/16 05:12 (Protonix Inj) 40 mg Q24H IV PUSH 11/06/16 15:00 11/06/16 15:00 (Peridex 0.12% Liq) 15 ml BID@08,20 MT 11/06/16 20:00 11/07/16 08:50 (Cardizem) 60 mg QID PO 11/07/16 09:00 11/07/16 08:49 Furosemide 40 mg 40 mg DAILY IV PUSH 11/08/16 09:00 (fentaNYL DRIP) 250 ml @ 0 mls/hr TITRATE IV 11/07/16 09:45 11/07/16 11:51 Vital Signs / I&O Vital Signs Date Time Temp Pulse Resp B/P Pulse Ox O2 Delivery O2 Flow Rate FiO2 11/07/16 11:44 97 45 11/07/16 11:09 95 100 11/07/16 08:09 96 45 11/07/16 06:00 87 11/07/16 04:10 97 50 11/07/16 04:05 50 11/07/16 04:00 81 11/07/16 04:00 60 11/07/16 04:00 98.9 108 28 103/59 99 11/07/16 02:00 81 11/07/16 01:08 98 55 11/07/16 00:00 60 11/07/16 00:00 98.9 108 28 103/67 99 11/07/16 00:00 108 11/06/16 22:00 90 11/06/16 20:00 60 11/06/16 20:00 96 11/06/16 20:00 97.9 93 24 90/58 99 11/06/16 19:50 99 60 11/06/16 19:15 60 11/06/16 19:00 Mechanical Ventilator 11/06/16 18:00 102 11/06/16 16:49 100 60 11/06/16 16:00 99.6 114 24 132/65 100 11/06/16 16:00 98 Mechanical Ventilator 60 11/06/16 16:00 114 11/06/16 14:00 118 11/06/16 13:11 95 70 I/O 11/06/16 11/06/16 11/06/16 11/07/16 11/07/16/21/17 07:00 15:00 23:00 07:00 15:00 23:00 Intake Total 690 ml 810 ml 490 ml 1300 ml Output Total 950 ml 1000 ml 1150 ml 550 ml Balance -260 ml -190 ml -660 ml 750 ml Intake Oral 240 ml IV Total 450 ml 810 ml 490 ml 1300 ml Output Urine Total 950 ml 1000 ml 1150 ml 550 ml # Bowel Movements 0 0 0 0 Physical Exam GENERAL: Sedated on the vent, C-collar in place SKIN: Warm and dry. HEAD: Atraumatic. Normocephalic. EYES: Pupils equal and round. No scleral icterus. No injection or drainage. ENT: Mucous membranes pink and moist. NECK: Trachea midline. No JVD. CARDIOVASCULAR: Irregularly irregular RESPIRATORY: Decreased breath sounds bilaterally GASTROINTESTINAL: Abdomen soft, non-tender, nondistended. Hepatic and splenic margins not palpable. MUSCULOSKELETAL: Extremities without clubbing, cyanosis, or edema. No obvious deformities. NEUROLOGICAL: Awake and alert. No obvious cranial nerve deficits. Motor grossly within normal limits. Five out of 5 muscle strength in the arms and legs. Normal speech. PSYCHIATRIC: Appropriate mood and affect; insight and judgment normal. Laboratory Laboratory Tests Test 11/06/16 11/06/16 11/06/16 11/07/16 14:05 14:19 15:55 04:58 Phosphorus Level 1.9 MG/DL 4.0 MG/DL Magnesium Level 1.6 MG/DL 2.7 MG/DL B-Type Natriuretic Peptide 118 PG/ML Blood Gas Puncture Site LT RADIAL LT RADIAL Blood Gas Patient Temperature 98.6 98.6 Blood Gas HCO3 24 mmol/L 24 mmol/L Blood Gas Base Excess -0.3 mmol/L -1.4 mmol/L Blood Gas Oxygen Saturation 87 % 95 % Arterial Blood pH 7.39 7.32 Arterial Blood Partial 41 mmHg 48 mmHg Pressure CO2 Arterial Blood Partial 59 mmHg 103 mmHg Pressure O2 Arterial Blood Oxygen Content 15.5 Vol % 15.7 Vol % Arterial Blood 1.4 % 1.2 % Carboxyhemoglobin Arterial Blood Methemoglobin 1.2 % 1.0 % Blood Gas Hemoglobin 12.7 G/DL 11.6 G/DL Oxygen Delivery Device BiPAP VENTILATOR Blood Gas Ventilator Setting [id number] A/C 16/450/8PEEP Blood Gas Inspired Oxygen 50 % 70 % White Blood Count 9.1 TH/MM3 Red Blood Count 3.22 MIL/MM3 Hemoglobin 10.6 GM/DL Hematocrit 31.8 % Mean Corpuscular Volume 98.8 FL Mean Corpuscular Hemoglobin 32.9 PG Mean Corpuscular Hemoglobin 33.3 % Concent Red Cell Distribution Width 13.5 % Platelet Count 139 TH/MM3 Mean Platelet Volume 9.6 FL Neutrophils (%) (Auto) 88.7 % Lymphocytes (%) (Auto) 8.3 % Monocytes (%) (Auto) 2.9 % Eosinophils (%) (Auto) 0.0 % Basophils (%) (Auto) 0.1 % Neutrophils # (Auto) 8.0 TH/MM3 Lymphocytes # (Auto) 0.7 TH/MM3 Monocytes # (Auto) 0.3 TH/MM3 Eosinophils # (Auto) 0.0 TH/MM3 Basophils # (Auto) 0.0 TH/MM3 CBC Comment DIFF FINAL Differential Comment Sodium Level 138 MEQ/L Potassium Level 3.1 MEQ/L Chloride Level 102 MEQ/L Carbon Dioxide Level 24.3 MEQ/L Anion Gap 12 MEQ/L Blood Urea Nitrogen 19 MG/DL Creatinine 1.15 MG/DL Estimat Glomerular Filtration 47 ML/MIN Rate Random Glucose 149 MG/DL Calcium Level 7.6 MG/DL Total Bilirubin 0.7 MG/DL Aspartate Amino Transf 58 U/L (AST/SGOT) Alanine Aminotransferase 50 U/L (ALT/SGPT) Alkaline Phosphatase 79 U/L Total Protein 6.0 GM/DL Albumin 2.0 GM/DL Assessment and Plan Problem List: (1) T1 vertebral fracture (2) C7 cervical fracture (3) Pneumonia (4) Sepsis (5) Fall Assessment and Plan 1) Afib/flutter currently controlled on Cardizem 60mg QID, drip weaned off 2) 2D echo pending 3) ASA for anticoagulation, not a good full anticoagulant candidate with multiple falls recently 4) Vent per critical care Problem Qualifiers (1) T1 vertebral fracture: Qualified Code: S22.019D - Closed fracture of first thoracic vertebra with routine healing, unspecified fracture morphology, subsequent encounter (2) C7 cervical fracture: Qualified Code: S12.601D - Closed nondisplaced fracture of seventh cervical vertebra with routine healing, unspecified fracture morphology, subsequent encounter (3) Pneumonia: Qualified Code: J18.9 - Pneumonia of both lungs due to infectious organism, unspecified part of lung (4) Sepsis: Qualified Code: A41.9 - Sepsis, due to unspecified organism Erick Barrera DO Nov 07, 2016 13:04
[2016-11-07] MEDS: PANTOPRAZOLE SODIUM 40 MG VIAL IV PUSH SCH (13:22)
--- NOTE | 2016-11-07 15:21 | EC ---
Study Study Date:11/06/2016 STUDY CONCLUSIONS SUMMARY - Left ventricle: The cavity size was normal. Systolic function was mildly reduced. The estimated ejection fraction was in the range of 45% to 50%. But patient was extensively tachycardiac with heart rates of 150-160 bpm during the exam making it difficult to determine. Diffuse hypokinesis. Although no diagnostic regional wall motion abnormality was identified, this possibility cannot be completely excluded on the basis of this study. - Mitral valve: Mildly calcified annulus. Mild regurgitation. - Tricuspid valve: Mild regurgitation. - Pulmonary arteries: PA peak pressure: 50mm Hg (S). If LV function is below 40, please consider prescribing an ACEI or ARB or document rationale for non-use. PROCEDURE DATA STUDY STATUS: Elective. Procedure: Transthoracic echocardiography. Image quality was good. Scanning was performed from the parasternal, apical, and subcostal acoustic windows. Study completion: The patient tolerated the procedure well. Transthoracic echocardiography. M-mode, complete 2D, complete spectral Doppler, and color Doppler. Patient status: Inpatient. CARDIAC ANATOMY LEFT VENTRICLE: The cavity size was normal. Systolic function was mildly reduced. The estimated ejection fraction was in the range of 45% to 50%. But patient was extensively tachycardiac with heart rates of 150-160 bpm during the exam making it difficult to determine. Diffuse hypokinesis. Although no diagnostic regional wall motion abnormality was identified, this possibility cannot be completely excluded on the basis of this study. AORTIC VALVE: The valve appears to be grossly normal. Doppler: There was no stenosis. No significant regurgitation. MITRAL VALVE: Mildly calcified annulus. Doppler: There was no evidence for stenosis. Mild regurgitation. PULMONIC VALVE: Not well visualized. Doppler: There was no evidence for stenosis. No significant regurgitation. TRICUSPID VALVE: The valve appears to be grossly normal. Doppler: There was no evidence for stenosis. Mild regurgitation. BASIC MEASUREMENTS ADULT Normal Left ventricle LV internal dimension, ED, chordal level, *30.5 mm 43-52 PLAX LV internal dimension, ES, chordal level, 23 mm 23-38 PLAX Fractional shortening, chordal level, PLAX *25 % >29 LV posterior wall thickness, ED 7.96 mm IVS/LVPW ratio, ED *1.82 <1.3 Ventricular septum Septal thickness, ED 14.5 mm Aortic valve Leaflet separation 16 mm 15-26 Right ventricle RV internal dimension, ED, PLAX 19.7 mm 19-38 BASIC MEASUREMENTS ADULT Normal Aortic valve Leaflet separation 16 mm 15-26 Aorta Root diameter, ED 36 mm 20-37 Left atrium Anterior-posterior dimension, ES 34 mm 19-40 LA/aortic root ratio 0.94 DOPPLER MEASUREMENTS ADULT Normal Main pulmonary artery Pressure, S *50 mm Hg =30 Tricuspid valve Regurgitant peak velocity 315 cm/s Peak RV-RA gradient, S 40 mm Hg Maximal regurgitant velocity 315 cm/s Systemic veins Estimated CVP 10 mm Hg Right ventricle RV pressure, S *50 mm Hg <30 LEGEND: Mean values are shown as u=mean value. Asterisk (*) graham values outside specified normal range. Prepared and signed by Erick Barrera [id number]
[2016-11-07] MEDS: MONTELUKAST SODIUM 10 MG TAB PO SCH (21:30)
[2016-11-08] VITALS (17 sets, daily range): BP systolic 107–126; BP diastolic 58–83; PULSE 84–153; RESP 18–22; TEMP 97.9–102.2; O2SAT 22–96
[2016-11-08] MEDS: fentaNYL DRIP 250 ML IV SCH ×2 (01:53→20:13)
[2016-11-08] MEDS: PIPERACIL-TAZO 4.5 GM PREMIX 100 ML IV SCH ×2 (03:10→08:58)
[2016-11-08] MEDS: RESP: ALBUTEROL 2.5 MG/IPRATROPIUM 0.5 MG NEB (SCH) NEB ×6 (03:42→23:35)
[2016-11-08 03:48] LABS: AUTOMATED NEUTROPHIL # 12.8 TH/MM3 (1.8-7.7); BASOPHIL % 0.1 % (0.0-2.0); HEMATOCRIT 32.8 % (35.0-46.0); HEMO FLAGS DIFF FINAL; LYMPH % 3.4 % (9.0-44.0); LYMPHOCYTE # 0.5 TH/MM3 (1.0-4.8); MEAN CELL VOLUME 98.9 FL (80.0-100.0); MEAN CORPUSCULAR HEMOGLOBIN 32.6 PG (27.0-34.0); MONO % 5.1 % (0.0-8.0); NEUT % 91.4 % (16.0-70.0); PLATELET COUNT 215 TH/MM3 (150-450); RED BLOOD COUNT 3.31 MIL/MM3 (4.00-5.30); RED CELL DISTRIBUTION WIDTH 13.8 % (11.6-17.2)
[2016-11-08 04:08] LABS: ANION GAP 10 MEQ/L (5-15); AST (GOT) 156 U/L (15-37); BICARBONATE 26.4 MEQ/L (21.0-32.0); BLOOD UREA NITROGEN 39 MG/DL (7-18); CHLORIDE 105 MEQ/L (98-107); GLOMERULAR FILTRATION RATE 31 ML/MIN (>89); MAGNESIUM 2.7 MG/DL (1.5-2.5); POTASSIUM 4.1 MEQ/L (3.5-5.1); SODIUM (NA) 141 MEQ/L (136-145)
[2016-11-08] MEDS: ACETAMINOPHEN/HYDROcodone 325 MG/5 MG TAB PO PRN (04:17)
[2016-11-08 04:26] LABS: ALKALINE PHOSPHATASE 102 U/L (45-117); ALT (GPT) 146 U/L (10-53); TOTAL BILIRUBIN ADULT 0.4 MG/DL (0.2-1.0)
[2016-11-08] MEDS: methylPREDNISolone SOD SUCC 125 MG/2 ML VIAL IV PUSH SCH ×3 (05:02→22:08)
[2016-11-08] MEDS: HEPARIN SODIUM - SQ 10,000 UNITS/ML VIAL SQ SCH ×3 (05:02→22:08)
[2016-11-08] MEDS: THYROID 30 MG TAB PO SCH (05:02)
[2016-11-08] MEDS: RESP: BUDESONIDE 0.5 MG/2 ML NEB NEB SCH ×2 (08:00→21:04)
[2016-11-08] MEDS: DILTIAZEM HCL 60 MG TAB PO SCH ×4 (08:58→20:12)
[2016-11-08] MEDS: SODIUM CHLORIDE 0.9% FLUSH 5 ML FLUSH FLUSH SCH ×2 (08:58→20:13)
[2016-11-08] MEDS: SENNOSIDES 8.6 MG TAB PO SCH (08:58)
[2016-11-08] MEDS: buPROPion HCL 100 MG TAB PO SCH ×2 (08:58→20:12)
[2016-11-08] MEDS: LEVOCETIRIZINE 5 MG PO SCH (08:59)
[2016-11-08] MEDS: CHLORHEXIDINE 0.12% (ORAL KIT) 15 ML CUP MT SCH ×2 (08:59→19:26)
[2016-11-08] MEDS: TIOTROPIUM BROMIDE 18 MCG INH INH SCH (08:59)
[2016-11-08] MEDS: DOCUSATE SODIUM 100 MG CAP PO SCH ×2 (08:59→20:13)
[2016-11-08] MEDS: SODIUM PHOSPHATE INJ 30 MMOL in SODIUM CHLOR 0.9% 250 ML INJ 240 ML IV PRN (09:00)
[2016-11-08] MEDS ORDERED: FUROSEMIDE 40 MG/4 ML VIAL IV PUSH SCH (09:00)
--- NOTE | 2016-11-08 09:55 | HHI.CCPN ---
Subjective Remarks/Hospital Course Patient is a 71-year-old female with history of pulmonary fibrosis, asthma, probable COPD on home oxygen who had a recent fall at home and sustained C7/ T1 fractures. She was evaluated by neurosurgery and conservatively managed and placed in a cervical collar. She was discharged home on 11/04/16. The pt developed inability to ambulate at home and also had urinary retention. Patient 's also noticed that she had been more confused. ER workup included a CT of the head which was negative, CT of the abdomen pelvis showed markedly distended bladder with mild to moderate hydronephrosis. Sanders catheter was inserted. Chest x-ray showed increasing bilateral infiltrates. Patient was admitted to the hospitalist service, on broad-spectrum antibiotics with Zosyn and vancomycin, breathing treatments. Neurology Dr. Xiong was also consulted Today was noted to have increasing shortness of breath today, tachypnea and hypoxia requiring a partial nonrebreather. Also noted to have A flutter with rapid ventricular response. Cardizem boluses 2 was given on Cardizem infusion was started. Because of her worsening respiratory failure patient was moved to the ICU. Critical care medicine consulted and I immediately evaluated the patient. She is in moderate distress on partial nonrebreather breathing 35-40/ m. Chest exam shows bilateral crackles and wheezes. I have added Solu-Medrol and scheduled breathing treatments and ordered BiPAP 10 over 5. I explained to the patient and the that patient may need endotracheal intubation and mechanical ventilation if she is not improving with BiPAP. 11/07 Patient is sedated with Diprivan and intubated. Afebrile. On Cardizem drip 5mg/hr, for MRI spine and CT thorax today. 11/08 Patient is sedated with Fentnayl and intubated. Afebrile. Renal function worse today with Cr: 1.65 from 1.15 Objective Vital Signs Date Time Temp Pulse Resp B/P Pulse Ox O2 Delivery O2 Flow Rate FiO2 11/08/16 07:55 93 Ventilator 60 11/08/16 06:00 86 11/08/16 04:00 101.2 19 126/62 11/06/16 08:59 15.00 Intake and Output 11/07/16 11/07/16 11/08/16 08:00 16:00 00:00 Intake Total 1300 ml 663 ml 900 ml Output Total 550 ml 650 ml 250 ml Balance 750 ml 13 ml 650 ml Result Diagram: 11/08/16 0237 11/08/16 0237 Other Results Laboratory Tests Test 11/07/16 11/08/16 13:40 02:37 Vancomycin Level Trough 24.4 MCG/ML White Blood Count 14.0 TH/MM3 Red Blood Count 3.31 MIL/MM3 Hemoglobin 10.8 GM/DL Hematocrit 32.8 % Mean Corpuscular Volume 98.9 FL Mean Corpuscular Hemoglobin 32.6 PG Mean Corpuscular Hemoglobin 33.0 % Concent Red Cell Distribution Width 13.8 % Platelet Count 215 TH/MM3 Mean Platelet Volume 9.4 FL Neutrophils (%) (Auto) 91.4 % Lymphocytes (%) (Auto) 3.4 % Monocytes (%) (Auto) 5.1 % Eosinophils (%) (Auto) 0.0 % Basophils (%) (Auto) 0.1 % Neutrophils # (Auto) 12.8 TH/MM3 Lymphocytes # (Auto) 0.5 TH/MM3 Monocytes # (Auto) 0.7 TH/MM3 Eosinophils # (Auto) 0.0 TH/MM3 Basophils # (Auto) 0.0 TH/MM3 CBC Comment DIFF FINAL Differential Comment Sodium Level 141 MEQ/L Potassium Level 4.1 MEQ/L Chloride Level 105 MEQ/L Carbon Dioxide Level 26.4 MEQ/L Anion Gap 10 MEQ/L Blood Urea Nitrogen 39 MG/DL Creatinine 1.65 MG/DL Estimat Glomerular Filtration 31 ML/MIN Rate Random Glucose 185 MG/DL Calcium Level 8.5 MG/DL Phosphorus Level 2.4 MG/DL Magnesium Level 2.7 MG/DL Total Bilirubin 0.4 MG/DL Aspartate Amino Transf 156 U/L (AST/SGOT) Alanine Aminotransferase 146 U/L (ALT/SGPT) Alkaline Phosphatase 102 U/L Total Protein 6.8 GM/DL Albumin 2.2 GM/DL Random Vancomycin Level 19.4 COMMENT Imaging Last Impressions Chest X-Ray 11/07/16 0600 Signed Impressions: Service Date/Time: Monday, November 07, 2016 05:03 - CONCLUSION: Persistent and stable bilateral air space opacities in the medial lungs. Scott Cantor MD Thoracic Spine MRI 11/07/16 0000 Signed Impressions: Service Date/Time: Monday, November 07, 2016 10:23 - CONCLUSION: 1. There is a fracture of the T1 vertebral body and T5 vertebral body. No significant height loss is present and there is no retropulsion of any fracture fragment. No canal stenosis is present. 2. Please refer to today's chest CT examination report for description of the pulmonary findings. Jimmy Lara MD Renal Ultrasound 11/06/16 0000 Signed Impressions: Service Date/Time: Sunday, November 06, 2016 22:24 - CONCLUSION: Probable complicated cyst midpole left kidney measuring 2.0 cm. Otherwise negative exam. No evidence of hydronephrosis. Scott Cantor MD Chest CT 11/06/16 0000 Signed Impressions: Service Date/Time: Monday, November 07, 2016 10:50 - CONCLUSION: Severe diffuse geographic areas of groundglass attenuation bilaterally with trace bilateral pleural effusions. The pattern is nonspecific but can be seen with infection and ARDS among other etiologies. Jimmy Lara MD Head CT 11/04/16 2326 Signed Impressions: Service Date/Time: Friday, November 04, 2016 23:45 - CONCLUSION: No acute intracranial findings. Jimmy Felton MD Abdomen/Pelvis CT 11/04/16 0000 Signed Impressions: Service Date/Time: Friday, November 04, 2016 23:48 - CONCLUSION: Markedly dilated urinary bladder with mild-moderate bilateral hydronephrosis Jimmy Felton MD Objective Remarks GENERAL: Patient is 71 yo sedated and intubated. SKIN: Warm and dry. HEAD: Normocephalic. EYES: No scleral icterus. No injection or drainage. NECK: Supple, trachea midline. No JVD or lymphadenopathy. CARDIOVASCULAR: Regular rate and rhythm without murmurs, gallops, or rubs. RESPIRATORY: Breath sounds equal bilaterally. No accessory muscle use. GASTROINTESTINAL: Abdomen soft, non-tender, nondistended. MUSCULOSKELETAL: No cyanosis, or edema. Neuro: Sedated A/P Assessment and Plan NEURO: Acute metabolic encephalopathy C7-T1 fracture (T1 vertebral body comminuted fracture, bilateral C7 pedicle fracture extending to the right facet. Remote history of anterior C6-C7 and C4-C5 fusion with plate placement. -Pain control with when necessary IV morphine and Lortab -Change Diprivan to Fentanyl infusion for sedation and analgesia . -CT head negative for acute findings. - 11/07 MRI spine:Fracture of the T1 vertebral body and T5 vertebral body. NSG is following Dr. Bowden RESP: Acute hypoxemic respiratory failure Pulmonary fibrosis/COPD exacerbation Probable HCAP -Continue with vent support keep sat >92%. On ACV RR 16, TV 450, PEEP*:8, FIO2 down 60% -Bronchodilators, Solumederol 60mg Q6 -ICU vent bundle, pulm is following-Dr. Escalera -CT chest showed diffuse GGO b/l. -Broad-spectrum antibiotics with Zosyn and Vanco CVS A Flutter with RVR Fluid overload -Monitor HR and BP keep MAP>65mmHg. On Cardizem 60mg QID -Echo showed EF 45-50%, diffuse hypokinesis, cards is following -Troponin negative GI: -Elevated LFT's, check US liver - IV Protonix for GI prophylaxis -On TF-Glucerna 1.5 @45ml/hr : Hydronephrosis from urinary retention/obstruction -Monitor renal function , I/O's, hold Lasix renal function worse today with Cr: 1.65 from 1.15 -Renal US: Probable complicated cyst midpole left kidney measuring 2.0 cm. No evidence of hydronephrosis. ID: Probable healthcare associated pneumonia Probable sepsis -Continue IV vancomycin and Zosyn. Monitor for signs of infections ( Fever, WBC ) -Follow up on blood culture and sputum culture HEME: -Monitor CBC, CMP ENDO: Hypokalemia -Electrolyte replacement per protocol. Sliding scale insulin if needed -On Thyroid 90mg daily, TSH: 0.123 PROPH: -Bilateral lower extremity SCDs. Subcutaneous heparin for DVT prophylaxis. IV Protonix for GI prophylaxis LINES: -Utilize peripheral IVs, central line if needed CCT 30 mins Glo Winters MD Nov 08, 2016 09:55
--- NOTE | 2016-11-08 12:42 | HHI.NSPN ---
History Chief Complaint: n/a Interval History MRI of the T spine was reviewed today. The cord is intact with no cord contusion. Vertebral edema present at T1 and T5. She is still intubated but has afib/flutter at this time. Exam Results Vital Signs Date Time Temp Pulse Resp B/P Pulse Ox O2 Delivery O2 Flow Rate FiO2 11/08/16 12:00 99.2 123 19 119/68 93 11/08/16 12:00 70 11/08/16 09:45 Mechanical Ventilator 11/06/16 08:59 15.00 Intake and Output 11/07/16 11/07/16 11/08/16 08:00 16:00 00:00 Intake Total 1300 ml 663 ml 900 ml Output Total 550 ml 650 ml 250 ml Balance 750 ml 13 ml 650 ml Physical Examination Neck: [place] J collar in place Heart: Tachycardic with irregular rhythm Abd: Soft positive bs Skin: No cyanosis or erythema Muscle: Moves all 4 extremities. [place] cervical collar in place. Neuro: Pt sedated but withdraws both lower extremities, no clonus or babinski Lab, Micro, Other Results Last Impressions Chest X-Ray 11/07/16 0600 Signed Impressions: Service Date/Time: Monday, November 07, 2016 05:03 - CONCLUSION: Persistent and stable bilateral air space opacities in the medial lungs. Scott Cantor MD Thoracic Spine MRI 11/07/16 0000 Signed Impressions: Service Date/Time: Monday, November 07, 2016 10:23 - CONCLUSION: 1. There is a fracture of the T1 vertebral body and T5 vertebral body. No significant height loss is present and there is no retropulsion of any fracture fragment. No canal stenosis is present. 2. Please refer to today's chest CT examination report for description of the pulmonary findings. Jimmy Lara MD Renal Ultrasound 11/06/16 0000 Signed Impressions: Service Date/Time: Sunday, November 06, 2016 22:24 - CONCLUSION: Probable complicated cyst midpole left kidney measuring 2.0 cm. Otherwise negative exam. No evidence of hydronephrosis. Scott Cantor MD Chest CT 11/06/16 0000 Signed Impressions: Service Date/Time: Monday, November 07, 2016 10:50 - CONCLUSION: Severe diffuse geographic areas of groundglass attenuation bilaterally with trace bilateral pleural effusions. The pattern is nonspecific but can be seen with infection and ARDS among other etiologies. Jimmy Lara MD Head CT 11/04/16 2326 Signed Impressions: Service Date/Time: Friday, November 04, 2016 23:45 - CONCLUSION: No acute intracranial findings. Jimmy Felton MD Abdomen/Pelvis CT 11/04/16 0000 Signed Impressions: Service Date/Time: Friday, November 04, 2016 23:48 - CONCLUSION: Markedly dilated urinary bladder with mild-moderate bilateral hydronephrosis Jimmy Felton MD Medical Decision Making Impression and Plan T1 fracture as well as C7 pedicular fx, stable T5 compression fx, in a [place] J collar. Will follow. Total Minutes: 10 Arnaldo Henriquez Nov 08, 2016 12:42
[2016-11-08] MEDS ORDERED: ACETAMINOPHEN 650 MG/20.3 ML UDC PO PRN (12:45)
[2016-11-08] MEDS: PIPERACIL-TAZO 3.375 GM PREMIX 50 ML IV SCH ×2 (13:35→19:25)
[2016-11-08] MEDS: FLUCONAZOLE 200 MG PREMIX BAG 100 ML IV SCH (13:35)
[2016-11-08] MEDS: PANTOPRAZOLE SODIUM 40 MG VIAL IV PUSH SCH (13:35)
[2016-11-08] MEDS ORDERED: VANCOMYCIN INJ 1,250 MG in SODIUM CHLOR 0.9% 250 ML INJ 250 ML IV ONE (14:00)
--- NOTE | 2016-11-08 16:00 | PD.CARD.PN ---
Subjective Subjective Remarks No events over night, had a short episode of Aflutter with RVR before receiving morning medications Objective Medications Current Medications Medications (Trade) Dose Ordered Sig/Stephanie Route Start Time Stop Time Status Last Admin (Zofran Inj) 4 mg Q6H PRN IVP 11/05/16 02:15 (Heparin Inj) 5,000 units Q8H SQ 11/05/16 06:00 11/08/16 13:36 (Narcan Inj) 0.4 mg UNSCH PRN IV 11/05/16 02:15 (Proair Hfa Inh) 1 puff Q4H PRN INH 11/05/16 08:45 Hold 11/05/16 21:09 (Xanax) 0.5 mg BID PRN PO 11/05/16 08:45 11/07/16 00:49 (Wellbutrin) 150 mg BID PO 11/05/16 09:00 11/08/16 08:58 (Singulair) 10 mg HS PO 11/05/16 21:00 11/07/16 21:30 Patient Own Medication PT OWN MED: (Levocetirizine 5 MG) DAILY PO 11/06/16 09:00 (Vancomycin Consult Pharmacy) 0 ml @ 0 mls/hr UNSCH OTHER 11/05/16 09:00 (Colace) 100 mg BID PO 11/05/16 09:00 11/08/16 08:59 (Senokot) 17.2 mg DAILY PO 11/05/16 09:00 11/08/16 08:58 (Catapres) 0.1 mg Q6H PRN PO 11/05/16 09:15 (Spiriva Inh) 18 mcg DAILY INH 11/05/16 11:00 11/06/16 09:41 Albuterol Sulfate 2 puff 2 puff QID INH 11/05/16 13:00 Hold 11/06/16 12:44 (Vancomycin Inj/ NS 250 ml Inj) 262.5 ml @ 250 mls/hr Q12H IV 11/05/16 12:00 Hold 11/07/16 00:39 (Bromide 5-325 Mg) 2 tab Q4H PRN PO 11/06/16 09:45 11/08/16 04:17 (Bromide 5-325 Mg) 1 tab Q4H PRN PO 11/06/16 08:30 ([place] Thyroid) 90 mg DAILY@06 PO 11/07/16 06:00 11/08/16 05:02 Morphine Sulfate 4 mg 4 mg Q4H PRN IV 11/06/16 11:45 11/07/16 10:00 Potassium Chloride 100 ml @ 50 mls/hr Q2H PRN IV-CENTRAL 11/06/16 13:00 11/07/16 06:53 (KCl 20 Meq Premix Inj) 100 ml @ 50 mls/hr Q2H PRN IV 11/06/16 13:00 Potassium Chloride 40 meq 40 meq UNSCH PRN PO/TUBE 11/06/16 13:00 Potassium Chloride 100 ml @ 25 mls/hr UNSCH PRN IV-CENTRAL 11/06/16 13:00 Potassium Chloride 100 ml @ 50 mls/hr Q2H PRN IV 11/06/16 13:00 11/06/16 18:12 (Magnesium Sulfate Inj/NS Inj) 100 ml @ 50 mls/hr UNSCH PRN IV 11/06/16 13:00 Magnesium Oxide 800 mg 800 mg UNSCH PRN PO 11/06/16 13:00 (Magnesium Sulfate Inj/NS Inj) 100 ml @ 50 mls/hr UNSCH PRN IV 11/06/16 13:00 11/07/16 01:13 Potassium Phosphate 2000 mg 2,000 mg Q4H PRN PO 11/06/16 13:00 (Sodium Phosphate Inj/NS 250 ml Inj) 250 ml @ 42 mls/hr UNSCH PRN IV 11/06/16 13:00 11/08/16 09:00 (KCl 40 Meq/30 ml Liq) 40 meq UNSCH PRN PO/TUBE 11/06/16 13:00 Potassium Phosphate 2000 mg 2,000 mg UNSCH PRN PO/TUBE 11/06/16 13:00 (Potassium Phosphate Inj/NS 250 ml Inj) 260 ml @ 42 mls/hr UNSCH PRN IV 11/06/16 13:00 (SoluMEDROL INJ) 60 mg Q8HR IV PUSH 11/06/16 22:00 11/08/16 13:36 (Protonix Inj) 40 mg Q24H IV PUSH 11/06/16 15:00 11/08/16 13:35 (Peridex 0.12% Liq) 15 ml BID@08,20 MT 11/06/16 20:00 11/08/16 08:59 Diltiazem HCl 60 mg 60 mg QID PO 11/07/16 09:00 11/08/16 13:35 Fentanyl Citrate 250 ml @ 0 mls/hr TITRATE IV 11/07/16 09:45 11/08/16 01:53 (Zosyn 3.375 Gm Premix) 50 ml @ 200 mls/hr Q6H IV 11/08/16 14:00 11/08/16 13:35 Acetaminophen 650 mg 650 mg Q6H PRN PO 11/08/16 12:45 (Diflucan 200 Mg Premix Bag) 100 ml @ 100 mls/hr Q24H IV 11/08/16 13:00 11/08/16 13:35 Vital Signs / I&O Vital Signs Date Time Temp Pulse Resp B/P Pulse Ox O2 Delivery O2 Flow Rate FiO2 11/08/16 12:00 99.2 123 19 119/68 93 11/08/16 12:00 92 11/08/16 12:00 70 11/08/16 10:00 114 11/08/16 09:45 92 Mechanical Ventilator 65 11/08/16 08:00 60 11/08/16 08:00 92 11/08/16 08:00 97.9 92 20 107/66 93 11/08/16 07:55 93 Ventilator 60 11/08/16 07:55 94 60 11/08/16 07:00 93 Mechanical Ventilator 60 11/08/16 06:00 86 11/08/16 04:26 95 70 11/08/16 04:00 88 11/08/16 04:00 101.2 88 19 126/62 22 11/08/16 04:00 70 11/08/16 02:00 85 11/08/16 01:15 94 70 11/08/16 00:30 70 11/08/16 00:00 60 11/08/16 00:00 100.0 84 19 111/58 96 11/08/16 00:00 84 11/07/16 22:00 82 11/07/16 20:03 93 60 11/07/16 20:00 99.5 89 20 115/62 98 11/07/16 20:00 84 11/07/16 20:00 60 11/07/16 19:00 Mechanical Ventilator 11/07/16 18:00 84 11/07/16 16:00 70 11/07/16 16:00 83 11/07/16 16:00 98.4 83 19 89/51 96 I/O 11/07/16 11/07/16 11/07/16 11/08/16 11/08/16 11/08/16 07:00 15:00 23:00 07:00 15:00 23:00 Intake Total 1300 ml 663 ml 900 ml 775 ml Output Total 550 ml 650 ml 250 ml 400 ml 0 ml Balance 750 ml 13 ml 650 ml 375 ml 0 ml IV Total 1300 ml 535 ml 425 ml 260 ml Tube Feeding 38 ml 275 ml 315 ml Other 90 ml 200 ml 200 ml Output Urine Total 550 ml 650 ml 250 ml 400 ml Tube Feeding Residual Discard 0 ml # Bowel Movements 0 0 0 0 Physical Exam GENERAL: Sedated on the vent, C-collar in place SKIN: Warm and dry. HEAD: Atraumatic. Normocephalic. EYES: Pupils equal and round. No scleral icterus. No injection or drainage. ENT: Mucous membranes pink and moist. NECK: Trachea midline. No JVD. CARDIOVASCULAR: Irregularly irregular RESPIRATORY: Decreased breath sounds bilaterally GASTROINTESTINAL: Abdomen soft, non-tender, nondistended. Hepatic and splenic margins not palpable. MUSCULOSKELETAL: Extremities without clubbing, cyanosis, or edema. No obvious deformities. NEUROLOGICAL: Awake and alert. No obvious cranial nerve deficits. Motor grossly within normal limits. Five out of 5 muscle strength in the arms and legs. Normal speech. PSYCHIATRIC: Appropriate mood and affect; insight and judgment normal. Laboratory Laboratory Tests Test 11/08/16 11/08/16 02:37 11:10 White Blood Count 14.0 TH/MM3 Red Blood Count 3.31 MIL/MM3 Hemoglobin 10.8 GM/DL Hematocrit 32.8 % Mean Corpuscular Volume 98.9 FL Mean Corpuscular Hemoglobin 32.6 PG Mean Corpuscular Hemoglobin 33.0 % Concent Red Cell Distribution Width 13.8 % Platelet Count 215 TH/MM3 Mean Platelet Volume 9.4 FL Neutrophils (%) (Auto) 91.4 % Lymphocytes (%) (Auto) 3.4 % Monocytes (%) (Auto) 5.1 % Eosinophils (%) (Auto) 0.0 % Basophils (%) (Auto) 0.1 % Neutrophils # (Auto) 12.8 TH/MM3 Lymphocytes # (Auto) 0.5 TH/MM3 Monocytes # (Auto) 0.7 TH/MM3 Eosinophils # (Auto) 0.0 TH/MM3 Basophils # (Auto) 0.0 TH/MM3 CBC Comment DIFF FINAL Differential Comment Sodium Level 141 MEQ/L Potassium Level 4.1 MEQ/L Chloride Level 105 MEQ/L Carbon Dioxide Level 26.4 MEQ/L Anion Gap 10 MEQ/L Blood Urea Nitrogen 39 MG/DL Creatinine 1.65 MG/DL Estimat Glomerular Filtration 31 ML/MIN Rate Random Glucose 185 MG/DL Calcium Level 8.5 MG/DL Phosphorus Level 2.4 MG/DL Magnesium Level 2.7 MG/DL Total Bilirubin 0.4 MG/DL Aspartate Amino Transf 156 U/L (AST/SGOT) Alanine Aminotransferase 146 U/L (ALT/SGPT) Alkaline Phosphatase 102 U/L Total Protein 6.8 GM/DL Albumin 2.2 GM/DL Random Vancomycin Level 19.4 COMMENT 25-Hydroxy Vitamin D Total 40.1 ng/ML Assessment and Plan Problem List: (1) T1 vertebral fracture (2) C7 cervical fracture (3) Pneumonia (4) Sepsis (5) Fall Assessment and Plan 1) Afib/flutter currently controlled on Cardizem 60mg QID, drip weaned off 2) EF 45-50% but very tachycardiac during it 3) ASA for anticoagulation, not a good full anticoagulant candidate with multiple falls recently 4) Vent per critical care 5) Spoke to the who agrees with the current plan of no anticoagulation Problem Qualifiers (1) T1 vertebral fracture: Qualified Code: S22.019D - Closed fracture of first thoracic vertebra with routine healing, unspecified fracture morphology, subsequent encounter (2) C7 cervical fracture: Qualified Code: S12.601D - Closed nondisplaced fracture of seventh cervical vertebra with routine healing, unspecified fracture morphology, subsequent encounter (3) Pneumonia: Qualified Code: J18.9 - Pneumonia of both lungs due to infectious organism, unspecified part of lung (4) Sepsis: Qualified Code: A41.9 - Sepsis, due to unspecified organism Erick Barrera DO Nov 08, 2016 16:00
[2016-11-08] MEDS: MONTELUKAST SODIUM 10 MG TAB PO SCH (20:12)
[2016-11-08] MEDS: ACETAMINOPHEN 325 MG TAB PO PRN (20:12)
[2016-11-08 20:27] LABS: BLOOD, URINE SMALL (NEG); GLUCOSE,URINE NEG (NEG); KETONE, URINE NEG (NEG); MUCUS URINE FEW /lpf (OCC); NITRITE,URINE NEG (NEG); PH, URINE 5.5 (5.0-8.5); SQUAMOUS EPITHELIAL CELL URINE 1 /hpf (0-5); URINE COLOR YELLOW (YELLW/STRAW)
[2016-11-08 20:31] LABS: COMMENT (UR) CATH-CULT NOT IND; CULTURE IF INDICATED CATH CULTURE NOT IND
[2016-11-09] VITALS (19 sets, daily range): BP systolic 104–128; BP diastolic 65–91; PULSE 86–112; RESP 16; TEMP 97.6–100.8; O2SAT 92–100
[2016-11-09] MEDS: ACETAMINOPHEN/HYDROcodone 325 MG/5 MG TAB PO PRN (02:51)
[2016-11-09] MEDS: PIPERACIL-TAZO 3.375 GM PREMIX 50 ML IV SCH ×4 (02:51→23:08)
[2016-11-09] MEDS: RESP: ALBUTEROL 2.5 MG/IPRATROPIUM 0.5 MG NEB (SCH) NEB ×5 (03:44→20:14)
--- NOTE | 2016-11-09 04:43 | RADRPT ---
EXAM DATE/TIME: 11/09/2016 03:36 [facility] COMPARISON: CHEST SINGLE AP, November 07, 2016, 5:03. INDICATIONS : Evaluate after respiratory failure. MEDICAL HISTORY : Hypertension. Cardiovascular disease. Pulmonary fibrosis SURGICAL HISTORY : Breast reduction, spinal fusion ENCOUNTER: Subsequent ACUITY: 1 week PAIN SCORE: Non-responsive. LOCATION: Bilateral chest FINDINGS: The support devices remain in place. There continues to be some mild interstitial infiltrates bilater ally. Interstitial infiltrates are mildly improved compared to the prior study. No pneumothorax. Bony structures are stable. The heart size is stable.. CONCLUSION: Mild improvement in the bilateral interstitial infiltrates. Roland Maier MD on November 09, 2016 at 4:41 Board Certified Radiologist. This report was verified electronically.
[2016-11-09 04:48] LABS: AUTOMATED NEUTROPHIL # 9.6 TH/MM3 (1.8-7.7); BASOPHIL % 0.2 % (0.0-2.0); EOSINOPHIL % 0.1 % (0.0-4.0); HEMATOCRIT 30.7 % (35.0-46.0); HEMO FLAGS DIFF FINAL; LYMPH % 4.5 % (9.0-44.0); LYMPHOCYTE # 0.5 TH/MM3 (1.0-4.8); MEAN CELL VOLUME 98.7 FL (80.0-100.0); MEAN CORPUSCULAR HEMOGLOBIN 33.1 PG (27.0-34.0); MEAN CORPUSCULAR HGB CONC 33.6 % (32.0-36.0); NEUT % 89.2 % (16.0-70.0); PLATELET COUNT 352 TH/MM3 (150-450); RED BLOOD COUNT 3.11 MIL/MM3 (4.00-5.30); RED CELL DISTRIBUTION WIDTH 14.1 % (11.6-17.2); WHITE BLOOD COUNT 10.8 TH/MM3 (4.0-11.0)
[2016-11-09 05:19] LABS: BICARBONATE 27.8 MEQ/L (21.0-32.0); POTASSIUM 3.8 MEQ/L (3.5-5.1)
[2016-11-09 05:54] LABS: BLOOD GAS BASE EXCESS 4.3 mmol/L (-2-2); BLOOD GAS CARBOXYHEMOGLOBIN 0.8 % (0-4); BLOOD GAS HCO3 29 mmol/L (22-26); BLOOD GAS METHEMOGLOBIN 1.1 % (0-2); BLOOD GAS O2 HGB SATURATION 96 % (90-100); BLOOD GAS OXYGEN CONTENT 16.6 Vol % (12.0-20.0); BLOOD GAS PCO2 52 mmHg (38-42); BLOOD GAS PO2 139 mmHg (61-120); BLOOD GAS TOTAL HGB 12.1 G/DL (12.0-16.0); TEMP CORR TO 98.6
[2016-11-09 05:57] LABS: CRITICAL VALUE YES; OXYGEN DEVICE VENTILATOR
[2016-11-09 05:58] LABS: DRAW SITE LT RADIAL; FIO2 65 %; NUMBER OF ARTERIAL PUNCTURES 1; STAT NO; ULNAR PULSE PRESENT; VENT SETTINGS PRVC/AC
[2016-11-09] MEDS: THYROID 30 MG TAB PO SCH (06:00)
[2016-11-09] MEDS: methylPREDNISolone SOD SUCC 125 MG/2 ML VIAL IV PUSH SCH ×3 (06:12→23:09)
[2016-11-09] MEDS: HEPARIN SODIUM - SQ 10,000 UNITS/ML VIAL SQ SCH ×3 (06:12→23:10)
[2016-11-09] MEDS: RESP: BUDESONIDE 0.5 MG/2 ML NEB NEB SCH ×2 (07:56→20:14)
[2016-11-09] MEDS: CHLORHEXIDINE 0.12% (ORAL KIT) 15 ML CUP MT SCH ×2 (08:08→23:08)
[2016-11-09] MEDS: SODIUM CHLORIDE 0.9% FLUSH 5 ML FLUSH FLUSH SCH ×2 (08:08→23:08)
[2016-11-09] MEDS: LEVOCETIRIZINE 5 MG PO SCH (08:09)
[2016-11-09] MEDS: TIOTROPIUM BROMIDE 18 MCG INH INH SCH (08:09)
[2016-11-09] MEDS: DOCUSATE SODIUM 100 MG CAP PO SCH ×2 (08:10→23:08)
[2016-11-09] MEDS: DILTIAZEM HCL 60 MG TAB PO SCH ×4 (08:10→23:08)
[2016-11-09] MEDS: SENNOSIDES 8.6 MG TAB PO SCH (08:14)
[2016-11-09] MEDS: buPROPion HCL 100 MG TAB PO SCH ×2 (08:15→23:09)
[2016-11-09] MEDS ORDERED: POTASSIUM CL 40 MEQ/30 ML LIQ UDC PO SCH (09:00)
--- NOTE | 2016-11-09 09:12 | MB ---
cc: ALICIA BASURTO DO DATE OF CONSULTATION: 11/06/2016 REASON FOR CONSULTATION: Atrial flutter with rapid ventricular response. HISTORY OF PRESENT ILLNESS Jeanne Rodríguez is a 71-year-old female who I have been asked to see due to atrial flutter with rapid ventricular response. She previously was in the hospital with a recent fall at home and sustained a C7-T1 fracture. She was evaluated at that time by neurosurgery and decided for conservative management and placement of cervical collar. She was discharged home on November 04, 2016. The patient had an inability to ambulate at home and also had urinary retention. The patient's also noticed that she had been more confused. She was brought back to the emergency room and x-ray showed bilateral infiltrates. She was originally admitted to the hospital service. She was noted to have increased shortness of breath and hypoxia requiring a partial non-rebreather. She was also noted at that time to be in atrial flutter with rapid ventricular response. She was given to Cardizem bolus as an Cardizem drip was started. Because of her progressive respiratory failure. She was moved to the ICU and at that time intubated. She was actually intubated in the ICU. She is noted to be in atrial fibrillation with controlled ventricular response on a Cardizem drip at 15 mg per hour. History is taken from her chart and nurse due to the patient currently being intubated. PAST MEDICAL HISTORY 1. Asthma. 2. Pulmonary fibrosis. 3. Gastroesophageal reflux disease. 4. Hemochromatosis 5. C7 / T1 fracture. PAST SURGICAL HISTORY 1. C7 / T1 fracture conservatively managed 2. Tonsillectomy. 3. Cholecystectomy. 4. Lumbar and cervical spine surgery. 5. Hysterectomy 6. Left salivary gland surgery. 7. Breast reduction. ALLERGIES BETADINE MEDICATIONS 1. Levocetirizine 5 mg daily 2. Zofran 4 mg daily 3. Budesonide 1/2 mg b.i.d. 4. Prednisone 5-10 mg daily as needed 5. Buspirone 150 mg b.i.d. 6. Meclizine 25 mg t.i.d. 7. Librax 5/2.5 mg daily as needed 8. Xanax 0.5 mg b.i.d. as needed 9. Temazepam 15 mg every night as needed 10. Albuterol 1 puff every 4 hours as needed for shortness of breath. 11. Combivent one puff b.i.d. 12. Cefepime 500 mg twice a day. 13. Estradiol patch every 7 days. 14. Singulair 10 mg every night. 15. Azithromycin 500 mg daily. 16. Vicodin 5/300 mg 2 tablets every 6 hours as needed. 17. Tramadol 50 mg every 6 hours as needed. 18. 150 mg subcu monthly 19. [place] thyroid 120 mg daily. FAMILY HISTORY Denies premature coronary artery disease or cardiac within the family. SOCIAL HISTORY Denies tobacco use but does have a history of exposure to passive smoking. Drinks a glass of wine per day. REVIEW OF SYSTEMS 14 systems were reviewed on the she will history and physical pertinent positives and negatives above, otherwise negative. PHYSICAL EXAMINATION VITAL SIGNS: Temperature 97.9, heart rate 90, blood pressure 90/58, respirations 24, pulse ox 99% on ventilator. IN GENERAL: In general the patient is currently sedated on ventilator. Pupils equal and round. Mucous membranes moist. ET tube in place. NECK: Neck is supple. No JVD at 45 degrees. No carotid bruits heard bilaterally. Her upstroke is brisk in nature. HEART: Heart is irregularly irregular. Positive first and second heart sounds with no known murmurs, gallops or rubs. LUNGS: The lungs have decreased breath sounds at bilateral bases with diffuse rhonchi and crackles. ABDOMEN: Soft, nontender, nondistended. No organomegaly noted. EXTREMITIES: The extremities showed no clubbing, cyanosis or edema. Femoral and distal pulses intact bilaterally. NEUROLOGICALLY: Currently sedated on the vent. Osteopathic with no kyphoscoliosis, lordosis or paraspinal tender points. LABORATORY FINDINGS White blood cells 12.2 hemoglobin 26 at hematocrit 34.8, platelets 131, troponin less than 0.02. BNP 118. Electrocardiogram (November 06, 2016 at 0825) there is sinus tach with PAC's, most likely atrial fibrillation with rapid ventricular response. IMPRESSION 1. Atrial fibrillation with rapid ventricular response, currently on Cardizem drip to control heart rate. 2. Acute metabolic encephalopathy. 3. C7 / T1 fracture due to recent fall, currently being treated conservatively. 4. Acute hypoxic respiratory failure requiring ventilation. 5. History of pulmonary fibrosis / COPD exacerbation. 6. Probable healthcare associated pneumonia. 7. Hydronephrosis from urinary retention. RECOMMENDATIONS 1. Jeanne appears to have gone into atrial fibrillation/ atrial flutter with a rapid ventricular response. She is currently controlled on a Cardizem drip at 15 mg. We will attempt to start her on p.o. Cardizem and attempt to wean off her Cardizem drip. 2. We will check a 2-D echo to look at her overall left ventricular function, cardiac structure and . 3. As far as anticoagulation goes, she does not appear to be a great candidate with her recent falls. We will place her on aspirin 81 mg daily. Further recommendations will be made during her hospital course as necessary. Thank you for allowing me Jeanne Rodríguez, if you have any questions please do not hesitate to call. Alicia Basurto DO VGP/ /11:59 PM /9:08 AM
[2016-11-09] MEDS: fentaNYL DRIP 250 ML IV SCH (10:49)
--- NOTE | 2016-11-09 11:59 | RADRPT ---
EXAM DATE/TIME: 11/09/2016 08:03 [place] COMPARISON: CT THORAX W/O CONTRAST, November 07, 2016, 10:50. EXTERNAL COMPARISON : [facility], CT ABDOMEN & PELVIS, October 03, 2011 INDICATIONS : Increased lab values. MEDICAL HISTORY : Hernia, hiatal. Arthritis. Peripheral neuropathy. Hyperension. Pulmonary fibrosis. COPD. Asthma. GE RD. Hemochromotosis. SURGICAL HISTORY : Cholecystectomy. Appendectomy. Hysterectomy. Salivary gland removed. Cataract removal. Bilateral mast itis drainage. Cervical and lumbar fusions. Hernia repair. Breast reduction. ENCOUNTER: Initial ACUITY: 1 day PAIN SCORE: 10/10 LOCATION: Bilateral upper quadrant MEASUREMENTS: LIVER: 15.4 cm length COMMON DUCT: 10 mm RIGHT KIDNEY: 10.5 x 4.9 x 5.2 cm SPLEEN: 11.0 cm length FINDINGS: LIVER: Normal echotexture without focal lesion or ductal dilatation. An 8mm dystrophic calcification is seen involving the right lobe of the liver near the dome of the diaphragm. A trace amount of fluid is see n adjacent to the tip of the liver. COMMON DUCT: No intraluminal mass or stone visualized. GALLBLADDER: Surgically absent. PANCREAS: The visualized portions are within normal limits. RIGHT KIDNEY: No hydronephrosis, stone or mass. SPLEEN: No focal lesion. CONCLUSION: 1. No acute abnormality. 2. Prior cholecystectomy. Common bile duct is within the normal range in terms of size for patient st atus post cholecystectomy. 3. Dystrophic calcification involving the right lobe of the liver. Scott Mittal Jr., MD on November 09, 2016 at 11:54 Board Certified Radiologist. This report was verified electronically.
[2016-11-09] MEDS: FLUCONAZOLE 200 MG PREMIX BAG 100 ML IV SCH (13:11)
[2016-11-09] MEDS ORDERED: VANCOMYCIN INJ 1,250 MG in SODIUM CHLOR 0.9% 250 ML INJ 250 ML IV ONE (14:00)
[2016-11-09] MEDS: PANTOPRAZOLE SODIUM 40 MG VIAL IV PUSH SCH (14:26)
--- NOTE | 2016-11-09 15:44 | PD.CARD.PN ---
Subjective Subjective Remarks No events over night, elevated heart rate when being moved around the bed Objective Medications Current Medications Medications (Trade) Dose Ordered Sig/Stephanie Route Start Time Stop Time Status Last Admin (Zofran Inj) 4 mg Q6H PRN IVP 11/05/16 02:15 (Heparin Inj) 5,000 units Q8H SQ 11/05/16 06:00 11/09/16 14:26 (Narcan Inj) 0.4 mg UNSCH PRN IV 11/05/16 02:15 (Proair Hfa Inh) 1 puff Q4H PRN INH 11/05/16 08:45 Hold 11/05/16 21:09 (Xanax) 0.5 mg BID PRN PO 11/05/16 08:45 11/07/16 00:49 (Wellbutrin) 150 mg BID PO 11/05/16 09:00 11/09/16 08:15 (Singulair) 10 mg HS PO 11/05/16 21:00 11/08/16 20:12 Patient Own Medication PT OWN MED: (Levocetirizine 5 MG) DAILY PO 11/06/16 09:00 (Vancomycin Consult Pharmacy) 0 ml @ 0 mls/hr UNSCH OTHER 11/05/16 09:00 (Colace) 100 mg BID PO 11/05/16 09:00 11/08/16 20:13 (Senokot) 17.2 mg DAILY PO 11/05/16 09:00 11/09/16 08:14 (Catapres) 0.1 mg Q6H PRN PO 11/05/16 09:15 (Spiriva Inh) 18 mcg DAILY INH 11/05/16 11:00 11/06/16 09:41 Albuterol Sulfate 2 puff 2 puff QID INH 11/05/16 13:00 Hold 11/06/16 12:44 (Vancomycin Inj/ NS 250 ml Inj) 262.5 ml @ 250 mls/hr Q12H IV 11/05/16 12:00 Hold 11/07/16 00:39 ([place] 5-325 Mg) 2 tab Q4H PRN PO 11/06/16 09:45 11/09/16 02:51 ([place] 5-325 Mg) 1 tab Q4H PRN PO 11/06/16 08:30 ([place] Thyroid) 90 mg DAILY@06 PO 11/07/16 06:00 11/08/16 05:02 Morphine Sulfate 4 mg 4 mg Q4H PRN IV 11/06/16 11:45 11/07/16 10:00 Potassium Chloride 100 ml @ 50 mls/hr Q2H PRN IV-CENTRAL 11/06/16 13:00 11/07/16 06:53 (KCl 20 Meq Premix Inj) 100 ml @ 50 mls/hr Q2H PRN IV 11/06/16 13:00 Potassium Chloride 40 meq 40 meq UNSCH PRN PO/TUBE 11/06/16 13:00 Potassium Chloride 100 ml @ 25 mls/hr UNSCH PRN IV-CENTRAL 11/06/16 13:00 Potassium Chloride 100 ml @ 50 mls/hr Q2H PRN IV 11/06/16 13:00 11/06/16 18:12 (Magnesium Sulfate Inj/NS Inj) 100 ml @ 50 mls/hr UNSCH PRN IV 11/06/16 13:00 Magnesium Oxide 800 mg 800 mg UNSCH PRN PO 11/06/16 13:00 (Magnesium Sulfate Inj/NS Inj) 100 ml @ 50 mls/hr UNSCH PRN IV 11/06/16 13:00 11/07/16 01:13 Potassium Phosphate 2000 mg 2,000 mg Q4H PRN PO 11/06/16 13:00 (Sodium Phosphate Inj/NS 250 ml Inj) 250 ml @ 42 mls/hr UNSCH PRN IV 11/06/16 13:00 11/08/16 09:00 (KCl 40 Meq/30 ml Liq) 40 meq UNSCH PRN PO/TUBE 11/06/16 13:00 Potassium Phosphate 2000 mg 2,000 mg UNSCH PRN PO/TUBE 11/06/16 13:00 (Potassium Phosphate Inj/NS 250 ml Inj) 260 ml @ 42 mls/hr UNSCH PRN IV 11/06/16 13:00 (SoluMEDROL INJ) 60 mg Q8HR IV PUSH 11/06/16 22:00 11/09/16 14:26 (Protonix Inj) 40 mg Q24H IV PUSH 11/06/16 15:00 11/09/16 14:26 (Peridex 0.12% Liq) 15 ml BID@08,20 MT 11/06/16 20:00 11/09/16 08:08 Diltiazem HCl 60 mg 60 mg QID PO 11/07/16 09:00 11/09/16 13:11 Fentanyl Citrate 250 ml @ 0 mls/hr TITRATE IV 11/07/16 09:45 11/09/16 10:49 Piperacillin Sod/ Tazobactam Sod 50 ml @ 200 mls/hr Q6H IV 11/08/16 14:00 11/09/16 14:25 (Diflucan 200 Mg Premix Bag) 100 ml @ 100 mls/hr Q24H IV 11/08/16 13:00 11/09/16 13:11 (Tylenol) 650 mg Q4H PRN PO 11/08/16 20:15 11/08/16 20:12 Vital Signs / I&O Vital Signs Date Time Temp Pulse Resp B/P Pulse Ox O2 Delivery O2 Flow Rate FiO2 11/09/16 13:24 92 45 11/09/16 07:56 99 60 11/09/16 06:00 93 11/09/16 06:00 60 11/09/16 04:00 65 11/09/16 04:00 98.2 107 16 116/67 99 11/09/16 04:00 107 11/09/16 03:44 100 65 11/09/16 02:00 86 11/09/16 00:44 98 75 11/09/16 00:00 112 11/09/16 00:00 75 11/09/16 00:00 97.7 112 16 122/79 98 11/08/16 22:00 88 11/08/16 21:15 75 11/08/16 21:06 91 65 11/08/16 20:00 102.2 140 22 111/83 90 11/08/16 20:00 65 11/08/16 20:00 153 11/08/16 19:00 Mechanical Ventilator 11/08/16 18:00 111 11/08/16 17:52 95 65 11/08/16 16:00 100.9 117 18 114/68 96 11/08/16 16:00 117 11/08/16 16:00 65 I/O 11/08/16 11/08/16 11/08/16 11/09/16 11/09/16 11/09/16 07:00 15:00 23:00 07:00 15:00 23:00 Intake Total 775 ml 834 ml 1300 ml 630 ml Output Total 400 ml 750 ml 600 ml 600 ml Balance 375 ml 84 ml 700 ml 30 ml IV Total 260 ml 453 ml 725 ml 230 ml Tube Feeding 315 ml 381 ml 375 ml 200 ml Other 200 ml 200 ml 200 ml Output Urine Total 400 ml 750 ml 600 ml 600 ml Tube Feeding Residual Discard 0 ml 0 ml 0 ml # Bowel Movements 0 0 0 0 Physical Exam GENERAL: Sedated on the vent, C-collar in place SKIN: Warm and dry. HEAD: Atraumatic. Normocephalic. EYES: Pupils equal and round. No scleral icterus. No injection or drainage. ENT: Mucous membranes pink and moist. NECK: Trachea midline. No JVD. CARDIOVASCULAR: Irregularly irregular RESPIRATORY: Decreased breath sounds bilaterally GASTROINTESTINAL: Abdomen soft, non-tender, nondistended. Hepatic and splenic margins not palpable. MUSCULOSKELETAL: Extremities without clubbing, cyanosis, or edema. No obvious deformities. NEUROLOGICAL: Sedated on the vent PSYCHIATRIC: Unable to obtain Laboratory Laboratory Tests Test 11/08/16 11/09/16 11/09/16 11/09/16 20:00 04:07 05:44 08:13 Urine Color YELLOW Urine Turbidity HAZY Urine pH 5.5 Urine Specific [place] 1.015 Urine Protein 30 mg/dL Urine Glucose (UA) NEG mg/dL Urine Ketones NEG mg/dL Urine Occult Blood SMALL Urine Nitrite NEG Urine Bilirubin NEG Urine Urobilinogen LESS THAN 2.0 MG/DL Urine Leukocyte Esterase NEG Urine RBC 2 /hpf Urine WBC 2 /hpf Urine Squamous Epithelial 1 /hpf Cells Urine Amorphous Sediment RARE Urine Mucus FEW /lpf Microscopic Urinalysis Comment CATH-CULT NOT IND White Blood Count 10.8 TH/MM3 Red Blood Count 3.11 MIL/MM3 Hemoglobin 10.3 GM/DL Hematocrit 30.7 % Mean Corpuscular Volume 98.7 FL Mean Corpuscular Hemoglobin 33.1 PG Mean Corpuscular Hemoglobin 33.6 % Concent Red Cell Distribution Width 14.1 % Platelet Count 352 TH/MM3 Mean Platelet Volume 10.3 FL Neutrophils (%) (Auto) 89.2 % Lymphocytes (%) (Auto) 4.5 % Monocytes (%) (Auto) 6.0 % Eosinophils (%) (Auto) 0.1 % Basophils (%) (Auto) 0.2 % Neutrophils # (Auto) 9.6 TH/MM3 Lymphocytes # (Auto) 0.5 TH/MM3 Monocytes # (Auto) 0.6 TH/MM3 Eosinophils # (Auto) 0.0 TH/MM3 Basophils # (Auto) 0.0 TH/MM3 CBC Comment DIFF FINAL Differential Comment Sodium Level 143 MEQ/L Potassium Level 3.8 MEQ/L Chloride Level 107 MEQ/L Carbon Dioxide Level 27.8 MEQ/L Anion Gap 8 MEQ/L Blood Urea Nitrogen 57 MG/DL Creatinine 1.82 MG/DL Estimat Glomerular Filtration 27 ML/MIN Rate Random Glucose 230 MG/DL Calcium Level 8.4 MG/DL Random Vancomycin Level 9.2 COMMENT Blood Gas Puncture Site LT RADIAL Blood Gas Patient Temperature 98.6 Blood Gas HCO3 29 mmol/L Blood Gas Base Excess 4.3 mmol/L Blood Gas Oxygen Saturation 96 % Arterial Blood pH 7.37 Arterial Blood Partial 52 mmHg Pressure CO2 Arterial Blood Partial 139 mmHg Pressure O2 Arterial Blood Oxygen Content 16.6 Vol % Arterial Blood 0.8 % Carboxyhemoglobin Arterial Blood Methemoglobin 1.1 % Blood Gas Hemoglobin 12.1 G/DL Oxygen Delivery Device VENTILATOR Blood Gas Ventilator Setting PRVC/AC Blood Gas Inspired Oxygen 65 % Nasal Screen MRSA (PCR) NEGATIVE Assessment and Plan Problem List: (1) T1 vertebral fracture (2) C7 cervical fracture (3) Pneumonia (4) Sepsis (5) Fall Assessment and Plan 1) Afib/flutter currently controlled on Cardizem 60mg QID, drip weaned off 2) EF 45-50% but very tachycardiac during it 3) ASA for anticoagulation, not a good full anticoagulant candidate with multiple falls recently 4) Vent per critical care 5) Spoke to the who agrees with the current plan of no anticoagulation Problem Qualifiers (1) T1 vertebral fracture: Qualified Code: S22.019D - Closed fracture of first thoracic vertebra with routine healing, unspecified fracture morphology, subsequent encounter (2) C7 cervical fracture: Qualified Code: S12.601D - Closed nondisplaced fracture of seventh cervical vertebra with routine healing, unspecified fracture morphology, subsequent encounter (3) Pneumonia: Qualified Code: J18.9 - Pneumonia of both lungs due to infectious organism, unspecified part of lung (4) Sepsis: Qualified Code: A41.9 - Sepsis, due to unspecified organism Erick Barrera DO Nov 09, 2016 15:43
--- NOTE | 2016-11-09 15:53 | HHI.CCPN ---
Subjective Remarks/Hospital Course Patient is a 71-year-old female with history of pulmonary fibrosis, asthma, probable COPD on home oxygen who had a recent fall at home and sustained C7/ T1 fractures. She was evaluated by neurosurgery and conservatively managed and placed in a cervical collar. She was discharged home on 11/04/16. The pt developed inability to ambulate at home and also had urinary retention. Patient 's also noticed that she had been more confused. ER workup included a CT of the head which was negative, CT of the abdomen pelvis showed markedly distended bladder with mild to moderate hydronephrosis. Sanders catheter was inserted. Chest x-ray showed increasing bilateral infiltrates. Patient was admitted to the hospitalist service, on broad-spectrum antibiotics with Zosyn and vancomycin, breathing treatments. Neurology Dr. Xiong was also consulted Today was noted to have increasing shortness of breath today, tachypnea and hypoxia requiring a partial nonrebreather. Also noted to have A flutter with rapid ventricular response. Cardizem boluses 2 was given on Cardizem infusion was started. Because of her worsening respiratory failure patient was moved to the ICU. Critical care medicine consulted and I immediately evaluated the patient. She is in moderate distress on partial nonrebreather breathing 35-40/ m. Chest exam shows bilateral crackles and wheezes. I have added Solu-Medrol and scheduled breathing treatments and ordered BiPAP 10 over 5. I explained to the patient and the that patient may need endotracheal intubation and mechanical ventilation if she is not improving with BiPAP. 11/07 Patient is sedated with Diprivan and intubated. Afebrile. On Cardizem drip 5mg/hr, for MRI spine and CT thorax today. 11/08 Patient is sedated with Fentnayl and intubated. Afebrile. Renal function worse today with Cr: 1.65 from 1.15 11/09 Tmax 102.2. The patient's sputum culture grew preliminarily budding yeast with pseudohyphae. Diflucan initiated yesterday white count trending down. Lasix discontinued yesterday secondary to elevated creatinine level. Objective Vital Signs Date Time Temp Pulse Resp B/P Pulse Ox O2 Delivery O2 Flow Rate FiO2 11/09/16 13:24 92 45 11/09/16 06:00 93 11/09/16 04:00 98.2 16 116/67 11/08/16 19:00 Mechanical Ventilator 11/06/16 08:59 15.00 Intake and Output 11/08/16 11/08/16 11/08/16 07:59 15:59 23:59 Intake Total 775 ml 834 ml 1300 ml Output Total 400 ml 750 ml 600 ml Balance 375 ml 84 ml 700 ml Result Diagram: 11/09/16 0407 11/09/16 0407 Other Results Microbiology Date/Time Procedure Status Source Growth 11/07/16 14:54 Gram Stain - Final Complete Sputum Endotracheal 11/07/16 14:54 Sputum Culture - Final Complete Sputum Endotracheal MODERATE GROWTH NORMAL RESPIRATORY JUNIOR Laboratory Tests Test 11/09/16 05:44 Blood Gas Puncture Site LT RADIAL Blood Gas Patient Temperature 98.6 Blood Gas HCO3 29 mmol/L (22-26) Blood Gas Base Excess 4.3 mmol/L (-2-2) Blood Gas Oxygen Saturation 96 % (90-100) Arterial Blood pH 7.37 (7.380-7.420) Arterial Blood Partial 52 mmHg (38-42) Pressure CO2 Arterial Blood Partial 139 mmHg Pressure O2 (61-120) Arterial Blood Oxygen Content 16.6 Vol % (12.0-20.0) Arterial Blood 0.8 % (0-4) Carboxyhemoglobin Arterial Blood Methemoglobin 1.1 % (0-2) Blood Gas Hemoglobin 12.1 G/DL (12.0-16.0) Oxygen Delivery Device VENTILATOR Blood Gas Ventilator Setting PRVC/AC Blood Gas Inspired Oxygen 65 % Imaging Last Impressions Liver Ultrasound 11/09/16 0000 Signed Impressions: Service Date/Time: Wednesday, November 09, 2016 08:03 - CONCLUSION: 1. No acute abnormality. 2. Prior cholecystectomy. Common bile duct is within the normal range in terms of size for patient status post cholecystectomy. 3. Dystrophic calcification involving the right lobe of the liver. Scott Mittal Jr., MD Chest X-Ray 11/09/16 0000 Signed Impressions: Service Date/Time: Wednesday, November 09, 2016 03:36 - CONCLUSION: Mild improvement in the bilateral interstitial infiltrates. Roland Maier MD Thoracic Spine MRI 11/07/16 0000 Signed Impressions: Service Date/Time: Monday, November 07, 2016 10:23 - CONCLUSION: 1. There is a fracture of the T1 vertebral body and T5 vertebral body. No significant height loss is present and there is no retropulsion of any fracture fragment. No canal stenosis is present. 2. Please refer to today's chest CT examination report for description of the pulmonary findings. Jimmy Lara MD Renal Ultrasound 11/06/16 0000 Signed Impressions: Service Date/Time: Sunday, November 06, 2016 22:24 - CONCLUSION: Probable complicated cyst midpole left kidney measuring 2.0 cm. Otherwise negative exam. No evidence of hydronephrosis. Scott Cantor MD Chest CT 11/06/16 0000 Signed Impressions: Service Date/Time: Monday, November 07, 2016 10:50 - CONCLUSION: Severe diffuse geographic areas of groundglass attenuation bilaterally with trace bilateral pleural effusions. The pattern is nonspecific but can be seen with infection and ARDS among other etiologies. Jimmy Lara MD Head CT 11/04/16 2326 Signed Impressions: Service Date/Time: Friday, November 04, 2016 23:45 - CONCLUSION: No acute intracranial findings. Jimmy Felton MD Abdomen/Pelvis CT 11/04/16 0000 Signed Impressions: Service Date/Time: Friday, November 04, 2016 23:48 - CONCLUSION: Markedly dilated urinary bladder with mild-moderate bilateral hydronephrosis Jimmy Felton MD Last Impressions Chest X-Ray 11/07/16 0600 Signed Impressions: Service Date/Time: Monday, November 07, 2016 05:03 - CONCLUSION: Persistent and stable bilateral air space opacities in the medial lungs. Scott Cantor MD Thoracic Spine MRI 11/07/16 0000 Signed Impressions: Service Date/Time: Monday, November 07, 2016 10:23 - CONCLUSION: 1. There is a fracture of the T1 vertebral body and T5 vertebral body. No significant height loss is present and there is no retropulsion of any fracture fragment. No canal stenosis is present. 2. Please refer to today's chest CT examination report for description of the pulmonary findings. Jimmy Lara MD Renal Ultrasound 11/06/16 0000 Signed Impressions: Service Date/Time: Sunday, November 06, 2016 22:24 - CONCLUSION: Probable complicated cyst midpole left kidney measuring 2.0 cm. Otherwise negative exam. No evidence of hydronephrosis. Scott Cantor MD Chest CT 11/06/16 0000 Signed Impressions: Service Date/Time: Monday, November 07, 2016 10:50 - CONCLUSION: Severe diffuse geographic areas of groundglass attenuation bilaterally with trace bilateral pleural effusions. The pattern is nonspecific but can be seen with infection and ARDS among other etiologies. Jimmy Lara MD Head CT 11/04/16 2326 Signed Impressions: Service Date/Time: Friday, November 04, 2016 23:45 - CONCLUSION: No acute intracranial findings. Jimmy Felton MD Abdomen/Pelvis CT 11/04/16 0000 Signed Impressions: Service Date/Time: Friday, November 04, 2016 23:48 - CONCLUSION: Markedly dilated urinary bladder with mild-moderate bilateral hydronephrosis Jimmy Felton MD Objective Remarks GENERAL: Patient is 71 yo sedated and intubated SKIN: Warm and dry. HEAD: Normocephalic. EYES: No scleral icterus. No injection or drainage. NECK: Supple, trachea midline. No JVD or lymphadenopathy. [place] J c-collar intact CARDIOVASCULAR: Regular rate and rhythm without murmurs, gallops, or rubs. RESPIRATORY: Breath sounds equal bilaterally. Mechanically ventilated GASTROINTESTINAL: Abdomen soft, non-tender, nondistended. OGT tube feeds infusing. MUSCULOSKELETAL: No cyanosis, or edema. Neuro: Sedated.GCS 11T , RASS-2 Procedures Liver ultrasound today Urinary Catheter: Yes Assessment to: Continue Vascular Central Line Catheter: No A/P Assessment and Plan NEURO: Acute metabolic encephalopathy C7-T1 fracture (T1 vertebral body comminuted fracture, bilateral C7 pedicle fracture extending to the right facet. Remote history of anterior C6-C7 and C4-C5 fusion with plate placement. -Pain control with when necessary IV morphine and Lortab -Fentanyl infusion at 150 mcgs for sedation and analgesia , maintaining RASS - 2. GCS 11T, following commands -CT head negative for acute findings. - 11/07 MRI spine:Fracture of the T1 vertebral body and T5 vertebral body. NSG is following Dr. Bowden RESP: Acute hypoxemic respiratory failure Pulmonary fibrosis/COPD exacerbation Probable HCAP -Continue with vent support keep sat >92%. On ACV RR 16, TV 450, PEEP*:8, FIO2 down 60% -Bronchodilators, Solumederol 60mg Q6 -ICU vent bundle, pulm is following-Dr. Lali -CT chest showed diffuse GGO b/l. -Broad-spectrum antibiotics with Zosyn and Vanco, Diflucan (day 1) -Sputum culture11/08 -budding yeast with pseudohyphae -Blood cultures11/08- NGTD CVS A Flutter with RVR Fluid overload -Monitor HR and BP keep MAP>65mmHg. On Cardizem 60mg QID -Echo showed EF 45-50%, diffuse hypokinesis, cardiology is following, Dr. Barrera -Troponin negative GI: -Elevated LFT's, check US liver-no acute abnormality .dystrophic calcification right lobe, common bowel duct within normal limits - IV Protonix for GI prophylaxis -On TF-Glucerna 1.5 @45ml/hr @ goal, no residual : Hydronephrosis from urinary retention/obstruction -Monitor renal function , I/O's, -Lasix discontinued secondary to elevated creatinine1.6-> 1.8 today, will continue to monitor -Renal US: Probable complicated cyst midpole left kidney measuring 2.0 cm. No evidence of hydronephrosis. ID: Probable healthcare associated pneumonia Probable sepsis -Continue IV Vancomycin ,Zosyn and Diflucan (day 2) Monitor for signs of infections ( Fever, WBC) -Follow up on blood culture and sputum culture HEME: -Monitor CBC, CMP ENDO: Hypokalemia Hyperglycemia of critical illness -Electrolyte replacement per protocol. Sliding scale insulin if needed -On Thyroid 90mg daily, TSH: 0.123 -Glucose monitoring every 6 hours per ICU protocol -Sliding-scale insulin PROPH: -Bilateral lower extremity SCDs. Subcutaneous heparin for DVT prophylaxis. IV Protonix for GI prophylaxis LINES: -Utilize peripheral IVs, central line if needed This patient remains critically ill with one or more organ systems which are or may become a threat to life. I have spent in excess of 35 minutes discontinuously in the care and management of this patient. This time is exclusive of procedures, and includes, but is not limited to, evaluation of the patient, review of the medical record, discussions with family, consultants, nursing staff, or respiratory therapy, and documentation in the medical record. Discussed with PASTE WORKER at bedside and Dr. Rodríguez(). Physician Megha Pastrana MD Nov 09, 2016 15:53
[2016-11-09] MEDS ORDERED: GLUCAGON 1 MG/ML VIAL OTHER PRN (16:00)
[2016-11-09] MEDS ORDERED: DEXTROSE 50% IN WATER 50 ML VIAL(D50) IV PUSH PRN (16:00)
[2016-11-09] MEDS: INSULIN ASPART SUPPLEMENTAL SCALE SQ SCH ×2 (17:19→23:09)
[2016-11-09] MEDS: MONTELUKAST SODIUM 10 MG TAB PO SCH (23:08)
[2016-11-10] VITALS (18 sets, daily range): BP systolic 125–144; BP diastolic 62–82; PULSE 90–121; RESP 16–18; TEMP 100.2–101.8; O2SAT 92–98
--- NOTE | 2016-11-10 00:01 | EKG ---
Date Performed: 11/06/2016 Time Performed: 08:25:20 PTAGE: 71 years EKG: Sinus tachycardia with PAC(s). ST junctional depression is nonspecific Borderline ECG Claudio red to the PREVIOUS TRACING from 11/04/16, previously in aflutter DOCTOR: Erick Barrera Interpretating Date/Time 11/10/2016 00:00:02
[2016-11-10] MEDS: RESP: ALBUTEROL 2.5 MG/IPRATROPIUM 0.5 MG NEB (SCH) NEB ×7 (00:09→23:58)
[2016-11-10] MEDS: ALPRAZolam 0.5 MG TAB PO PRN ×2 (01:15→08:41)
[2016-11-10] MEDS: ACETAMINOPHEN/HYDROcodone 325 MG/5 MG TAB PO PRN ×2 (01:20→20:37)
[2016-11-10] MEDS: PIPERACIL-TAZO 3.375 GM PREMIX 50 ML IV SCH ×4 (04:13→20:37)
[2016-11-10 04:14] LABS: HEMATOCRIT 31.5 % (35.0-46.0); MEAN CELL VOLUME 99.1 FL (80.0-100.0); MEAN CORPUSCULAR HEMOGLOBIN 33.1 PG (27.0-34.0); MEAN CORPUSCULAR HGB CONC 33.4 % (32.0-36.0); PLATELET COUNT 258 TH/MM3 (150-450); RED BLOOD COUNT 3.18 MIL/MM3 (4.00-5.30); RED CELL DISTRIBUTION WIDTH 14.3 % (11.6-17.2); REVIEW FLAG FINAL; WHITE BLOOD COUNT 11.1 TH/MM3 (4.0-11.0)
[2016-11-10 04:31] LABS: BICARBONATE 29.9 MEQ/L (21.0-32.0); MAGNESIUM 2.8 MG/DL (1.5-2.5); POTASSIUM 4.2 MEQ/L (3.5-5.1)
[2016-11-10 05:09] LABS: BLOOD GAS BASE EXCESS 4.6 mmol/L (-2-2); BLOOD GAS HCO3 29 mmol/L (22-26); BLOOD GAS METHEMOGLOBIN 1.1 % (0-2); BLOOD GAS O2 HGB SATURATION 96 % (90-100); BLOOD GAS OXYGEN CONTENT 15.4 Vol % (12.0-20.0); BLOOD GAS PCO2 48 mmHg (38-42); BLOOD GAS PO2 119 mmHg (61-120); BLOOD GAS TOTAL HGB 11.3 G/DL (12.0-16.0); CRITICAL VALUE NO; OXYGEN DEVICE VENTILATOR; TEMP CORR TO 98.6
[2016-11-10 05:10] LABS: DRAW SITE RT BRACHIAL; FIO2 50 %; NUMBER OF ARTERIAL PUNCTURES 1; STAT NO; ULNAR PULSE PRESENT
[2016-11-10] MEDS: THYROID 30 MG TAB PO SCH (06:00)
[2016-11-10] MEDS: methylPREDNISolone SOD SUCC 125 MG/2 ML VIAL IV PUSH SCH ×3 (06:00→20:36)
[2016-11-10] MEDS: HEPARIN SODIUM - SQ 10,000 UNITS/ML VIAL SQ SCH ×3 (06:00→20:36)
[2016-11-10] MEDS: INSULIN ASPART SUPPLEMENTAL SCALE SQ SCH ×5 (07:00→20:41)
[2016-11-10] MEDS: DILTIAZEM HCL 60 MG TAB PO SCH ×4 (08:41→20:37)
[2016-11-10] MEDS: buPROPion HCL 100 MG TAB PO SCH ×2 (08:41→20:36)
[2016-11-10] MEDS: CHLORHEXIDINE 0.12% (ORAL KIT) 15 ML CUP MT SCH ×2 (08:41→20:00)
[2016-11-10] MEDS: TIOTROPIUM BROMIDE 18 MCG INH INH SCH (08:42)
[2016-11-10] MEDS: LEVOCETIRIZINE 5 MG PO SCH (08:42)
[2016-11-10] MEDS: SENNOSIDES 8.6 MG TAB PO SCH (08:42)
[2016-11-10] MEDS: SODIUM CHLORIDE 0.9% FLUSH 5 ML FLUSH FLUSH SCH ×2 (08:42→20:37)
[2016-11-10] MEDS: DOCUSATE SODIUM 100 MG CAP PO SCH ×2 (08:42→21:00)
[2016-11-10] MEDS: RESP: BUDESONIDE 0.5 MG/2 ML NEB NEB SCH ×2 (09:51→19:46)
[2016-11-10] MEDS ORDERED: GLUCAGON 1 MG/ML VIAL OTHER PRN (11:30)
[2016-11-10] MEDS ORDERED: DEXTROSE 50% IN WATER 50 ML VIAL(D50) IV PUSH PRN (11:30)
[2016-11-10] MEDS ORDERED: BISACODYL 10 MG SUPP RECTAL PRN (11:30)
--- NOTE | 2016-11-10 11:47 | HHI.CCPN ---
Subjective Remarks/Hospital Course Patient is a 71-year-old female with history of pulmonary fibrosis, asthma, probable COPD on home oxygen who had a recent fall at home and sustained C7/ T1 fractures. She was evaluated by neurosurgery and conservatively managed and placed in a cervical collar. She was discharged home on 11/04/16. The pt developed inability to ambulate at home and also had urinary retention. Patient 's also noticed that she had been more confused. ER workup included a CT of the head which was negative, CT of the abdomen pelvis showed markedly distended bladder with mild to moderate hydronephrosis. Sanders catheter was inserted. Chest x-ray showed increasing bilateral infiltrates. Patient was admitted to the hospitalist service, on broad-spectrum antibiotics with Zosyn and vancomycin, breathing treatments. Neurology Dr. Xiong was also consulted Today was noted to have increasing shortness of breath today, tachypnea and hypoxia requiring a partial nonrebreather. Also noted to have A flutter with rapid ventricular response. Cardizem boluses 2 was given on Cardizem infusion was started. Because of her worsening respiratory failure patient was moved to the ICU. Critical care medicine consulted and I immediately evaluated the patient. She is in moderate distress on partial nonrebreather breathing 35-40/ m. Chest exam shows bilateral crackles and wheezes. I have added Solu-Medrol and scheduled breathing treatments and ordered BiPAP 10 over 5. I explained to the patient and the that patient may need endotracheal intubation and mechanical ventilation if she is not improving with BiPAP. 11/07 Patient is sedated with Diprivan and intubated. Afebrile. On Cardizem drip 5mg/hr, for MRI spine and CT thorax today. 11/08 Patient is sedated with Fentnayl and intubated. Afebrile. Renal function worse today with Cr: 1.65 from 1.15 11/09 Tmax 102.2. The patient's sputum culture grew preliminarily budding yeast with pseudohyphae. Diflucan initiated yesterday white count trending down. Lasix discontinued yesterday secondary to elevated creatinine level. 11/10 Afebrile. Able to wean oxygenation to FiO2 of 40% today. CPAP trials plan for today. The patient was noted to be hypernatremic free water flushes were added to her tube feedings. Creatinine slightly improved today. PT consulted Functional maintenance with specific requirements to be referred to neurosurgery for restrictions of any type of activities regarding functional maintenance. Objective Vital Signs Date Time Temp Pulse Resp B/P Pulse Ox O2 Delivery O2 Flow Rate FiO2 11/10/16 09:51 93 40 11/10/16 06:00 119 11/10/16 04:00 100.6 16 135/76 11/09/16 20:00 Mechanical Ventilator 11/06/16 08:59 15.00 Intake and Output 11/09/16 11/09/16 11/09/16 07:59 15:59 23:59 Intake Total 630 ml 646 ml 1010 ml Output Total 600 ml 700 ml 500 ml Balance 30 ml -54 ml 510 ml Result Diagram: 11/10/16 0321 11/10/16 0321 Other Results Microbiology Date/Time Procedure Status Source Growth 11/07/16 14:54 Gram Stain - Final Complete Sputum Endotracheal 11/07/16 14:54 Sputum Culture - Final Complete Sputum Endotracheal MODERATE GROWTH NORMAL RESPIRATORY JUNIOR Laboratory Tests Test 11/10/16 04:59 Blood Gas Puncture Site RT BRACHIAL Blood Gas Patient Temperature 98.6 Blood Gas HCO3 29 mmol/L (22-26) Blood Gas Base Excess 4.6 mmol/L (-2-2) Blood Gas Oxygen Saturation 96 % (90-100) Arterial Blood pH 7.40 (7.380-7.420) Arterial Blood Partial 48 mmHg (38-42) Pressure CO2 Arterial Blood Partial 119 mmHg Pressure O2 (61-120) Arterial Blood Oxygen Content 15.4 Vol % (12.0-20.0) Arterial Blood 1.0 % (0-4) Carboxyhemoglobin Arterial Blood Methemoglobin 1.1 % (0-2) Blood Gas Hemoglobin 11.3 G/DL (12.0-16.0) Oxygen Delivery Device VENTILATOR Blood Gas Ventilator Setting SEE COMMENT Blood Gas Inspired Oxygen 50 % Imaging Last Impressions Liver Ultrasound 11/09/16 0000 Signed Impressions: Service Date/Time: Wednesday, November 09, 2016 08:03 - CONCLUSION: 1. No acute abnormality. 2. Prior cholecystectomy. Common bile duct is within the normal range in terms of size for patient status post cholecystectomy. 3. Dystrophic calcification involving the right lobe of the liver. Scott Mittal Jr., MD Chest X-Ray 11/09/16 0000 Signed Impressions: Service Date/Time: Wednesday, November 09, 2016 03:36 - CONCLUSION: Mild improvement in the bilateral interstitial infiltrates. Roland Maier MD Thoracic Spine MRI 11/07/16 0000 Signed Impressions: Service Date/Time: Monday, November 07, 2016 10:23 - CONCLUSION: 1. There is a fracture of the T1 vertebral body and T5 vertebral body. No significant height loss is present and there is no retropulsion of any fracture fragment. No canal stenosis is present. 2. Please refer to today's chest CT examination report for description of the pulmonary findings. Jimmy Lara MD Renal Ultrasound 11/06/16 0000 Signed Impressions: Service Date/Time: Sunday, November 06, 2016 22:24 - CONCLUSION: Probable complicated cyst midpole left kidney measuring 2.0 cm. Otherwise negative exam. No evidence of hydronephrosis. Scott Cantor MD Chest CT 11/06/16 0000 Signed Impressions: Service Date/Time: Monday, November 07, 2016 10:50 - CONCLUSION: Severe diffuse geographic areas of groundglass attenuation bilaterally with trace bilateral pleural effusions. The pattern is nonspecific but can be seen with infection and ARDS among other etiologies. Jimmy Lara MD Head CT 11/04/16 2326 Signed Impressions: Service Date/Time: Friday, November 04, 2016 23:45 - CONCLUSION: No acute intracranial findings. Jimmy Felton MD Abdomen/Pelvis CT 11/04/16 0000 Signed Impressions: Service Date/Time: Friday, November 04, 2016 23:48 - CONCLUSION: Markedly dilated urinary bladder with mild-moderate bilateral hydronephrosis Jimmy Felton MD Last Impressions Chest X-Ray 11/07/16 0600 Signed Impressions: Service Date/Time: Monday, November 07, 2016 05:03 - CONCLUSION: Persistent and stable bilateral air space opacities in the medial lungs. Scott Cantor MD Thoracic Spine MRI 11/07/16 0000 Signed Impressions: Service Date/Time: Monday, November 07, 2016 10:23 - CONCLUSION: 1. There is a fracture of the T1 vertebral body and T5 vertebral body. No significant height loss is present and there is no retropulsion of any fracture fragment. No canal stenosis is present. 2. Please refer to today's chest CT examination report for description of the pulmonary findings. Jimmy Lara MD Renal Ultrasound 11/06/16 0000 Signed Impressions: Service Date/Time: Sunday, November 06, 2016 22:24 - CONCLUSION: Probable complicated cyst midpole left kidney measuring 2.0 cm. Otherwise negative exam. No evidence of hydronephrosis. Scott Cantor MD Chest CT 11/06/16 0000 Signed Impressions: Service Date/Time: Monday, November 07, 2016 10:50 - CONCLUSION: Severe diffuse geographic areas of groundglass attenuation bilaterally with trace bilateral pleural effusions. The pattern is nonspecific but can be seen with infection and ARDS among other etiologies. Jimmy Lara MD Head CT 11/04/16 2326 Signed Impressions: Service Date/Time: Friday, November 04, 2016 23:45 - CONCLUSION: No acute intracranial findings. Jimmy Felton MD Abdomen/Pelvis CT 11/04/16 0000 Signed Impressions: Service Date/Time: Friday, November 04, 2016 23:48 - CONCLUSION: Markedly dilated urinary bladder with mild-moderate bilateral hydronephrosis Jimmy Felton MD Objective Remarks GENERAL: Patient is 71 yo sedated and intubated. GCS 11 T, on fentanyl infusion SKIN: Warm and dry. HEAD: Normocephalic. EYES: No scleral icterus. No injection or drainage. NECK: Supple, trachea midline. No JVD or lymphadenopathy. [place] J c-collar intact CARDIOVASCULAR: Regular rate and rhythm without murmurs, gallops, or rubs. RESPIRATORY: Breath sounds equal bilaterally. Mechanically ventilated GASTROINTESTINAL: Abdomen soft, non-tender, nondistended. Normoactive bowel sounds OGT tube feeds infusing. MUSCULOSKELETAL: No cyanosis, or edema. Neuro: Patient responding to commands, fentanyl infusion at 100 mcgs Urinary Catheter: Yes Sanders insert reason: Measure Accurate Output Vascular Central Line Catheter: No A/P Assessment and Plan NEURO: Acute metabolic encephalopathy C7-T1 fracture (T1 vertebral body comminuted fracture, bilateral C7 pedicle fracture extending to the right facet. Remote history of anterior C6-C7 and C4-C5 fusion with plate placement. -Pain control with when necessary IV morphine and Lortab -Fentanyl infusion at 100 mcgs for sedation and analgesia , maintaining RASS - 2. GCS 11T, following commands -CT head negative for acute findings. - 11/07 MRI spine:Fracture of the T1 vertebral body and T5 vertebral body. NSG is following Dr. Bowden RESP: Acute hypoxemic respiratory failure Pulmonary fibrosis/COPD exacerbation Probable HCAP -Continue with vent support keep sat >92%. On ACV RR 16, TV 450, PEEP*:8, FIO2.40 -Will begin CPAP trials today -Bronchodilators, Solumederol 60mg Q6 -ICU vent bundle, pulm is following-Dr. Escalera -CT chest showed diffuse GGO b/l. -Broad-spectrum antibiotics with Zosyn and Vanco, Diflucan (day 2) -Sputum culture11/08 -budding yeast with pseudohyphae -Blood cultures11/08- NGTD CVS A Flutter with RVR Fluid overload -Monitor HR and BP keep MAP>65mmHg. On Cardizem 60mg QID -Echo showed EF 45-50%, diffuse hypokinesis, cardiology is following, Dr. Barrera -Troponin negative GI: Constipation -Elevated LFT's, check US liver-no acute abnormality .dystrophic calcification right lobe, common bowel duct within normal limits - IV Protonix for GI prophylaxis -On TF-Glucerna 1.5 @45ml/hr @ goal, no residual -Will add 200 cc every 6 hours free water flushes to tube feeds secondary to hypernatremia -Dulcolax suppository added for when necessary regimen -MiraLAX added, normoactive bowel sounds : Hydronephrosis from urinary retention/obstruction -Monitor renal function , I/O's, -Lasix discontinued secondary to elevated creatinine improved today 1.6, will continue to monitor -Renal US: Probable complicated cyst midpole left kidney measuring 2.0 cm. No evidence of hydronephrosis. ID: Probable healthcare associated pneumonia Probable sepsis -Continue IV Vancomycin ,Zosyn and Diflucan (day 2) Monitor for signs of infections ( Fever, WBC) -Follow up on blood culture and sputum culture HEME: -Monitor CBC, CMP ENDO: Hypokalemia Hyperglycemia of critical illness -Electrolyte replacement per protocol. Sliding scale insulin if needed -Glucose levels remain in the 200s, change sliding-scale insulin to medium dose -On Thyroid 90mg daily, TSH: 0.123 -Glucose monitoring every 6 hours per ICU protocol MSK: -Multi-Podus boot -PT evaluation and treat functional maintenance, for activity restrictions to neurosurgery PROPH: -Bilateral lower extremity SCDs. Subcutaneous heparin for DVT prophylaxis. IV Protonix for GI prophylaxis LINES: -Utilize peripheral IVs, central line if needed This patient remains critically ill with one or more organ systems which are or may become a threat to life. I have spent in excess of 33 minutes discontinuously in the care and management of this patient. This time is exclusive of procedures, and includes, but is not limited to, evaluation of the patient, review of the medical record, discussions with family, consultants, nursing staff, or respiratory therapy, and documentation in the medical record. Discussed with OPERATIONS LOGISTICS ANALYST at bedside and Dr. Rodríguez. Physician Megha Pastrana MD Nov 10, 2016 11:47
[2016-11-10] MEDS: FREE WATER G-TUBE SCH ×2 (12:00→16:56)
[2016-11-10] MEDS: VANCOMYCIN INJ 1,250 MG in SODIUM CHLOR 0.9% 250 ML INJ 250 ML IV SCH (12:43)
[2016-11-10] MEDS: ACETAMINOPHEN 325 MG TAB PO PRN ×2 (12:44→16:55)
[2016-11-10] MEDS: FLUCONAZOLE 200 MG PREMIX BAG 100 ML IV SCH (12:44)
[2016-11-10] MEDS: PANTOPRAZOLE SODIUM 40 MG VIAL IV PUSH SCH (15:06)
[2016-11-10] MEDS ORDERED: METOPROLOL TARTRATE 5 MG/5 ML VIAL IV PUSH ONE (16:30)
[2016-11-10] MEDS ORDERED: METOPROLOL TARTRATE 5 MG/5 ML VIAL ONE (16:35)
--- NOTE | 2016-11-10 17:28 | PD.CARD.PN ---
Subjective Subjective Remarks Patient seen earlier Elevated heart rate when moved/cleaned, otherwise mostly controlled Objective Medications Current Medications Medications (Trade) Dose Ordered Sig/Stephanie Route Start Time Stop Time Status Last Admin (NS Flush) 2 ml UNSCH PRN FLUSH 11/05/16 02:15 (NS Flush) 2 ml BID FLUSH 11/05/16 09:00 11/10/16 08:42 (Zofran Inj) 4 mg Q6H PRN IVP 11/05/16 02:15 (Heparin Inj) 5,000 units Q8H SQ 11/05/16 06:00 11/10/16 12:45 (Narcan Inj) 0.4 mg UNSCH PRN IV 11/05/16 02:15 (Proair Hfa Inh) 1 puff Q4H PRN INH 11/05/16 08:45 Hold 11/05/16 21:09 (Xanax) 0.5 mg BID PRN PO 11/05/16 08:45 11/10/16 08:41 (Wellbutrin) 150 mg BID PO 11/05/16 09:00 11/10/16 08:41 (Singulair) 10 mg HS PO 11/05/16 21:00 11/09/16 23:08 Patient Own Medication PT OWN MED: (Levocetirizine 5 MG) DAILY PO 11/06/16 09:00 (Vancomycin Consult Pharmacy) 0 ml @ 0 mls/hr UNSCH OTHER 11/05/16 09:00 (Colace) 100 mg BID PO 11/05/16 09:00 11/10/16 08:42 (Senokot) 17.2 mg DAILY PO 11/05/16 09:00 11/10/16 08:42 (Catapres) 0.1 mg Q6H PRN PO 11/05/16 09:15 (Spiriva Inh) 18 mcg DAILY INH 11/05/16 11:00 11/06/16 09:41 (Proair Hfa Inh) 2 puff QID INH 11/05/16 13:00 Hold 11/06/16 12:44 ([place] 5-325 Mg) 2 tab Q4H PRN PO 11/06/16 09:45 11/10/16 01:20 ([place] 5-325 Mg) 1 tab Q4H PRN PO 11/06/16 08:30 ([place] Thyroid) 90 mg DAILY@06 PO 11/07/16 06:00 11/08/16 05:02 Morphine Sulfate 4 mg 4 mg Q4H PRN IV 11/06/16 11:45 11/07/16 10:00 Potassium Chloride 100 ml @ 50 mls/hr Q2H PRN IV-CENTRAL 11/06/16 13:00 11/07/16 06:53 (KCl 20 Meq Premix Inj) 100 ml @ 50 mls/hr Q2H PRN IV 11/06/16 13:00 Potassium Chloride 40 meq 40 meq UNSCH PRN PO/TUBE 11/06/16 13:00 Potassium Chloride 100 ml @ 25 mls/hr UNSCH PRN IV-CENTRAL 11/06/16 13:00 Potassium Chloride 100 ml @ 50 mls/hr Q2H PRN IV 11/06/16 13:00 11/06/16 18:12 (Magnesium Sulfate Inj/NS Inj) 100 ml @ 50 mls/hr UNSCH PRN IV 11/06/16 13:00 Magnesium Oxide 800 mg 800 mg UNSCH PRN PO 11/06/16 13:00 (Magnesium Sulfate Inj/NS Inj) 100 ml @ 50 mls/hr UNSCH PRN IV 11/06/16 13:00 11/07/16 01:13 Potassium Phosphate 2000 mg 2,000 mg Q4H PRN PO 11/06/16 13:00 (Sodium Phosphate Inj/NS 250 ml Inj) 250 ml @ 42 mls/hr UNSCH PRN IV 11/06/16 13:00 11/08/16 09:00 (KCl 40 Meq/30 ml Liq) 40 meq UNSCH PRN PO/TUBE 11/06/16 13:00 Potassium Phosphate 2000 mg 2,000 mg UNSCH PRN PO/TUBE 11/06/16 13:00 (Potassium Phosphate Inj/NS 250 ml Inj) 260 ml @ 42 mls/hr UNSCH PRN IV 11/06/16 13:00 11/10/16 15:06 (SoluMEDROL INJ) 60 mg Q8HR IV PUSH 11/06/16 22:00 11/10/16 12:44 (Protonix Inj) 40 mg Q24H IV PUSH 11/06/16 15:00 11/10/16 15:06 (Peridex 0.12% Liq) 15 ml BID@08,20 MT 11/06/16 20:00 11/10/16 08:41 Diltiazem HCl 60 mg 60 mg QID PO 11/07/16 09:00 11/10/16 16:55 Fentanyl Citrate 250 ml @ 0 mls/hr TITRATE IV 11/07/16 09:45 11/09/16 10:49 Piperacillin Sod/ Tazobactam Sod 50 ml @ 200 mls/hr Q6H IV 11/08/16 14:00 11/10/16 12:43 (Diflucan 200 Mg Premix Bag) 100 ml @ 100 mls/hr Q24H IV 11/08/16 13:00 11/10/16 12:44 Acetaminophen 650 mg 650 mg Q4H PRN PO 11/08/16 20:15 11/10/16 16:55 (Vancomycin Inj/ NS 250 ml Inj) 262.5 ml @ 250 mls/hr Q24H IV 11/10/16 14:00 11/10/16 12:43 Miscellaneous Information SPECIFIC LAB TO BE DRAWN:VANCOMYCIN TROUGH DATE TO... ONCE ONCE XX 11/12/16 13:45 11/12/16 13:46 (Free Water) VOLUME: 200 ML Q6HR G-TUBE 11/10/16 12:00 11/10/16 16:56 (Miralax) 17 gm DAILY PO 11/11/16 12:00 (Dulcolax Supp) 10 mg DAILY PRN RECTAL 11/10/16 11:30 11/10/16 12:44 (D50w (Vial) Inj) 25 ml UNSCH PRN IV PUSH 11/10/16 11:30 (Glucagon Inj) 1 mg UNSCH PRN OTHER 11/10/16 11:30 Vital Signs / I&O Vital Signs Date Time Temp Pulse Resp B/P Pulse Ox O2 Delivery O2 Flow Rate FiO2 11/10/16 16:15 40 11/10/16 16:00 40 11/10/16 16:00 116 11/10/16 16:00 101.7 116 16 144/82 94 11/10/16 14:00 95 11/10/16 13:55 94 40 11/10/16 12:00 40 11/10/16 12:00 118 11/10/16 12:00 101.3 118 16 125/62 94 11/10/16 11:33 94 40 11/10/16 10:00 99 11/10/16 09:51 93 40 11/10/16 09:30 95 Mechanical Ventilator 40 11/10/16 09:30 40 11/10/16 09:00 95 Mechanical Ventilator 45 11/10/16 09:00 45 11/10/16 08:00 50 11/10/16 08:00 119 11/10/16 08:00 100.2 119 16 134/78 98 11/10/16 07:00 98 Mechanical Ventilator 50 11/10/16 06:00 119 11/10/16 04:03 95 50 11/10/16 04:00 100.6 120 16 135/76 98 11/10/16 04:00 120 11/10/16 04:00 50 11/10/16 02:00 121 11/10/16 00:46 98 50 11/10/16 00:00 100 11/10/16 00:00 50 11/10/16 00:00 101.3 100 18 132/72 98 11/09/16 22:00 102 11/09/16 21:50 98 50 11/09/16 20:06 97 50 11/09/16 20:00 100.8 96 16 104/65 97 11/09/16 20:00 Mechanical Ventilator 11/09/16 20:00 50 11/09/16 20:00 96 11/09/16 18:00 93 I/O 11/09/16 11/09/16 11/09/16 11/10/16 11/10/16 11/10/16 07:00 15:00 23:00 07:00 15:00 23:00 Intake Total 630 ml 646 ml 1010 ml 630 ml 944 ml Output Total 600 ml 700 ml 500 ml 600 ml 650 ml 0 ml Balance 30 ml -54 ml 510 ml 30 ml 294 ml 0 ml IV Total 230 ml 347 ml 492 ml 295 ml 456 ml Tube Feeding 200 ml 239 ml 388 ml 235 ml 288 ml Other 200 ml 60 ml 130 ml 100 ml 200 ml Output Urine Total 600 ml 700 ml 500 ml 600 ml 650 ml Stool Total 0 ml 0 ml Tube Feeding Residual Discard 0 ml 0 ml 0 ml # Bowel Movements 0 0 0 Physical Exam GENERAL: Sedated on the vent, C-collar in place SKIN: Warm and dry. HEAD: Atraumatic. Normocephalic. EYES: Pupils equal and round. No scleral icterus. No injection or drainage. ENT: Mucous membranes pink and moist. NECK: Trachea midline. No JVD. CARDIOVASCULAR: Irregularly irregular RESPIRATORY: Decreased breath sounds bilaterally GASTROINTESTINAL: Abdomen soft, non-tender, nondistended. Hepatic and splenic margins not palpable. MUSCULOSKELETAL: Extremities without clubbing, cyanosis, or edema. No obvious deformities. NEUROLOGICAL: Sedated on the vent PSYCHIATRIC: Unable to obtain Laboratory Laboratory Tests Test 11/10/16 11/10/16 03:21 04:59 White Blood Count 11.1 TH/MM3 Red Blood Count 3.18 MIL/MM3 Hemoglobin 10.5 GM/DL Hematocrit 31.5 % Mean Corpuscular Volume 99.1 FL Mean Corpuscular Hemoglobin 33.1 PG Mean Corpuscular Hemoglobin 33.4 % Concent Red Cell Distribution Width 14.3 % Platelet Count 258 TH/MM3 Mean Platelet Volume 9.7 FL Sodium Level 150 MEQ/L Potassium Level 4.2 MEQ/L Chloride Level 113 MEQ/L Carbon Dioxide Level 29.9 MEQ/L Anion Gap 7 MEQ/L Blood Urea Nitrogen 61 MG/DL Creatinine 1.62 MG/DL Estimat Glomerular Filtration 31 ML/MIN Rate Random Glucose 204 MG/DL Calcium Level 8.9 MG/DL Phosphorus Level 2.3 MG/DL Magnesium Level 2.8 MG/DL Random Vancomycin Level 17.3 COMMENT Blood Gas Puncture Site RT BRACHIAL Blood Gas Patient Temperature 98.6 Blood Gas HCO3 29 mmol/L Blood Gas Base Excess 4.6 mmol/L Blood Gas Oxygen Saturation 96 % Arterial Blood pH 7.40 Arterial Blood Partial 48 mmHg Pressure CO2 Arterial Blood Partial 119 mmHg Pressure O2 Arterial Blood Oxygen Content 15.4 Vol % Arterial Blood 1.0 % Carboxyhemoglobin Arterial Blood Methemoglobin 1.1 % Blood Gas Hemoglobin 11.3 G/DL Oxygen Delivery Device VENTILATOR Blood Gas Ventilator Setting SEE COMMENT Blood Gas Inspired Oxygen 50 % Assessment and Plan Problem List: (1) T1 vertebral fracture (2) C7 cervical fracture (3) Pneumonia (4) Sepsis (5) Fall Assessment and Plan 1) Afib/flutter mostly controlled on Cardizem 60mg QID, drip weaned off, still episodes of tachycardia when moved/cleaned 2) EF 45-50% but very tachycardiac during it 3) ASA for anticoagulation, not a good full anticoagulant candidate with multiple falls recently 4) Vent per critical care 5) Spoke to the who agrees with the current plan of no anticoagulation 6) Will follow up with Dr. Alejandro outpatient 7) May need Lopressor added, if hypotension may need digoxin loaded for the acute setting, but probably not terminal carman unless needed Problem Qualifiers (1) T1 vertebral fracture: Qualified Code: S22.019D - Closed fracture of first thoracic vertebra with routine healing, unspecified fracture morphology, subsequent encounter (2) C7 cervical fracture: Qualified Code: S12.601D - Closed nondisplaced fracture of seventh cervical vertebra with routine healing, unspecified fracture morphology, subsequent encounter (3) Pneumonia: Qualified Code: J18.9 - Pneumonia of both lungs due to infectious organism, unspecified part of lung (4) Sepsis: Qualified Code: A41.9 - Sepsis, due to unspecified organism Erick Barrera DO Nov 10, 2016 17:28
[2016-11-10] MEDS ORDERED: METOPROLOL TARTRATE 25 MG TAB PO ONE (17:30)
[2016-11-10] MEDS ORDERED: PILL SPLITTER OTHER PRN (17:45)
[2016-11-10] MEDS: MONTELUKAST SODIUM 10 MG TAB PO SCH (20:37)
[2016-11-10] MEDS: METOPROLOL TARTRATE 25 MG TAB PO SCH (20:48)
[2016-11-11] VITALS (19 sets, daily range): BP systolic 115–140; BP diastolic 66–99; PULSE 94–148; RESP 13–25; TEMP 100.3–101.7; O2SAT 91–98
[2016-11-11] MEDS ORDERED: METOPROLOL TARTRATE 5 MG/5 ML VIAL ONE (03:06)
[2016-11-11] MEDS: methylPREDNISolone SOD SUCC 125 MG/2 ML VIAL IV PUSH SCH ×3 (04:08→22:37)
[2016-11-11] MEDS: THYROID 30 MG TAB PO SCH (04:08)
[2016-11-11] MEDS: MORPHINE SULFATE 4 MG/ML INJ IV PRN (04:08)
[2016-11-11] MEDS ORDERED: LIDOCAINE HCL 1% 50 ML VIAL ONE (04:22)
[2016-11-11] MEDS: RESP: ALBUTEROL 2.5 MG/IPRATROPIUM 0.5 MG NEB (SCH) NEB ×5 (04:50→20:16)
[2016-11-11 05:06] LABS: MEAN CELL VOLUME 99.3 FL (80.0-100.0); MEAN CORPUSCULAR HEMOGLOBIN 32.2 PG (27.0-34.0); MEAN CORPUSCULAR HGB CONC 32.4 % (32.0-36.0); PLATELET COUNT 319 TH/MM3 (150-450); RED BLOOD COUNT 3.32 MIL/MM3 (4.00-5.30); RED CELL DISTRIBUTION WIDTH 14.3 % (11.6-17.2); REVIEW FLAG FINAL
[2016-11-11 05:39] LABS: BICARBONATE 31.3 MEQ/L (21.0-32.0); MAGNESIUM 2.9 MG/DL (1.5-2.5); POTASSIUM 4.6 MEQ/L (3.5-5.1)
[2016-11-11 05:52] LABS: BLOOD GAS BASE EXCESS 7.4 mmol/L (-2-2); BLOOD GAS CARBOXYHEMOGLOBIN 1.4 % (0-4); BLOOD GAS HCO3 32 mmol/L (22-26); BLOOD GAS O2 HGB SATURATION 92 % (90-100); BLOOD GAS OXYGEN CONTENT 14.5 Vol % (12.0-20.0); BLOOD GAS PCO2 48 mmHg (38-42); BLOOD GAS PO2 78 mmHg (61-120); BLOOD GAS TOTAL HGB 11.1 G/DL (12.0-16.0); CRITICAL VALUE NO; DRAW SITE RT RADIAL; FIO2 40 %; NUMBER OF ARTERIAL PUNCTURES 1; OXYGEN DEVICE VENTILATOR; STAT NO; TEMP CORR TO 98.6; ULNAR PULSE PRESENT
[2016-11-11] MEDS: HEPARIN SODIUM - SQ 10,000 UNITS/ML VIAL SQ SCH ×3 (06:00→22:37)
[2016-11-11] MEDS: FREE WATER G-TUBE SCH ×4 (06:00→17:36)
[2016-11-11] MEDS: INSULIN ASPART SUPPLEMENTAL SCALE SQ SCH ×4 (06:58→22:38)
[2016-11-11] MEDS: RESP: BUDESONIDE 0.5 MG/2 ML NEB NEB SCH ×2 (08:06→20:39)
--- NOTE | 2016-11-11 08:32 | HHI.CCPN ---
Subjective Remarks/Hospital Course Patient is a 71-year-old female with history of pulmonary fibrosis, asthma, probable COPD on home oxygen who had a recent fall at home and sustained C7/ T1 fractures. She was evaluated by neurosurgery and conservatively managed and placed in a cervical collar. She was discharged home on 11/04/16. The pt developed inability to ambulate at home and also had urinary retention. Patient 's also noticed that she had been more confused. ER workup included a CT of the head which was negative, CT of the abdomen pelvis showed markedly distended bladder with mild to moderate hydronephrosis. Sanders catheter was inserted. Chest x-ray showed increasing bilateral infiltrates. Patient was admitted to the hospitalist service, on broad-spectrum antibiotics with Zosyn and vancomycin, breathing treatments. Neurology Dr. Xiong was also consulted Today was noted to have increasing shortness of breath today, tachypnea and hypoxia requiring a partial nonrebreather. Also noted to have A flutter with rapid ventricular response. Cardizem boluses 2 was given on Cardizem infusion was started. Because of her worsening respiratory failure patient was moved to the ICU. Critical care medicine consulted and I immediately evaluated the patient. She is in moderate distress on partial nonrebreather breathing 35-40/ m. Chest exam shows bilateral crackles and wheezes. I have added Solu-Medrol and scheduled breathing treatments and ordered BiPAP 10 over 5. I explained to the patient and the that patient may need endotracheal intubation and mechanical ventilation if she is not improving with BiPAP. 11/07 Patient is sedated with Diprivan and intubated. Afebrile. On Cardizem drip 5mg/hr, for MRI spine and CT thorax today. 11/08 Patient is sedated with Fentnayl and intubated. Afebrile. Renal function worse today with Cr: 1.65 from 1.15 11/09 Tmax 102.2. The patient's sputum culture grew preliminarily budding yeast with pseudohyphae. Diflucan initiated yesterday white count trending down. Lasix discontinued yesterday secondary to elevated creatinine level. 11/10 Afebrile. Able to wean oxygenation to FiO2 of 40% today. CPAP trials plan for today. The patient was noted to be hypernatremic free water flushes were added to her tube feedings. Creatinine slightly improved today. PT consulted Functional maintenance with specific requirements to be referred to neurosurgery for restrictions of any type of activities regarding functional maintenance. 11/11 Tmax 101.7. Patient continues to have persistent fevers, on antibiotic therapy, ID consulted,Dr Phan, appreciate recommendations. The patient has elevations in heart rate with activity/movement, received 2 doses of metoprolol with some diminution, from 160 to 90's yesterday. Overnight the patient's heart rate remained in the 120's. CPAP trials were initiated yesterday the patient was able to maintain the trial for approximately 4 hours. Objective Vital Signs Date Time Temp Pulse Resp B/P Pulse Ox O2 Delivery O2 Flow Rate FiO2 11/11/16 06:00 136 11/11/16 04:20 96 40 11/11/16 04:00 100.8 16 126/75 11/10/16 19:00 Mechanical Ventilator Intake and Output 11/10/16 11/10/16 11/11/16 08:00 16:00 00:00 Intake Total 630 ml 944 ml 1211 ml Output Total 600.0 ml 650.0 ml 700.0 ml Balance 30.0 ml 294.0 ml 511.0 ml Result Diagram: 11/11/16 0416 11/11/16 0416 Other Results Laboratory Tests Test 11/11/16 05:39 Blood Gas Puncture Site RT RADIAL Blood Gas Patient Temperature 98.6 Blood Gas HCO3 32 mmol/L (22-26) Blood Gas Base Excess 7.4 mmol/L (-2-2) Blood Gas Oxygen Saturation 92 % (90-100) Arterial Blood pH 7.44 (7.380-7.420) Arterial Blood Partial 48 mmHg (38-42) Pressure CO2 Arterial Blood Partial 78 mmHg Pressure O2 (61-120) Arterial Blood Oxygen Content 14.5 Vol % (12.0-20.0) Arterial Blood 1.4 % (0-4) Carboxyhemoglobin Arterial Blood Methemoglobin 1.0 % (0-2) Blood Gas Hemoglobin 11.1 G/DL (12.0-16.0) Oxygen Delivery Device VENTILATOR Blood Gas Ventilator Setting SEE COMMENT Blood Gas Inspired Oxygen 40 % Imaging Last Impressions Liver Ultrasound 11/09/16 0000 Signed Impressions: Service Date/Time: Wednesday, November 09, 2016 08:03 - CONCLUSION: 1. No acute abnormality. 2. Prior cholecystectomy. Common bile duct is within the normal range in terms of size for patient status post cholecystectomy. 3. Dystrophic calcification involving the right lobe of the liver. Scott Mittal Jr., MD Chest X-Ray 11/09/16 0000 Signed Impressions: Service Date/Time: Wednesday, November 09, 2016 03:36 - CONCLUSION: Mild improvement in the bilateral interstitial infiltrates. Roland Maier MD Thoracic Spine MRI 11/07/16 0000 Signed Impressions: Service Date/Time: Monday, November 07, 2016 10:23 - CONCLUSION: 1. There is a fracture of the T1 vertebral body and T5 vertebral body. No significant height loss is present and there is no retropulsion of any fracture fragment. No canal stenosis is present. 2. Please refer to today's chest CT examination report for description of the pulmonary findings. Jimmy Lara MD Renal Ultrasound 11/06/16 0000 Signed Impressions: Service Date/Time: Sunday, November 06, 2016 22:24 - CONCLUSION: Probable complicated cyst midpole left kidney measuring 2.0 cm. Otherwise negative exam. No evidence of hydronephrosis. Scott Cantor MD Chest CT 11/06/16 0000 Signed Impressions: Service Date/Time: Monday, November 07, 2016 10:50 - CONCLUSION: Severe diffuse geographic areas of groundglass attenuation bilaterally with trace bilateral pleural effusions. The pattern is nonspecific but can be seen with infection and ARDS among other etiologies. Jimmy Lara MD Head CT 11/04/16 2326 Signed Impressions: Service Date/Time: Friday, November 04, 2016 23:45 - CONCLUSION: No acute intracranial findings. Jimmy Felton MD Abdomen/Pelvis CT 11/04/16 0000 Signed Impressions: Service Date/Time: Friday, November 04, 2016 23:48 - CONCLUSION: Markedly dilated urinary bladder with mild-moderate bilateral hydronephrosis Jimmy Felton MD Last Impressions Chest X-Ray 11/07/16 0600 Signed Impressions: Service Date/Time: Monday, November 07, 2016 05:03 - CONCLUSION: Persistent and stable bilateral air space opacities in the medial lungs. Scott Cantor MD Thoracic Spine MRI 11/07/16 0000 Signed Impressions: Service Date/Time: Monday, November 07, 2016 10:23 - CONCLUSION: 1. There is a fracture of the T1 vertebral body and T5 vertebral body. No significant height loss is present and there is no retropulsion of any fracture fragment. No canal stenosis is present. 2. Please refer to today's chest CT examination report for description of the pulmonary findings. Jimmy Lara MD Renal Ultrasound 11/06/16 0000 Signed Impressions: Service Date/Time: Sunday, November 06, 2016 22:24 - CONCLUSION: Probable complicated cyst midpole left kidney measuring 2.0 cm. Otherwise negative exam. No evidence of hydronephrosis. Scott Cantor MD Chest CT 11/06/16 0000 Signed Impressions: Service Date/Time: Monday, November 07, 2016 10:50 - CONCLUSION: Severe diffuse geographic areas of groundglass attenuation bilaterally with trace bilateral pleural effusions. The pattern is nonspecific but can be seen with infection and ARDS among other etiologies. Jimmy Lara MD Head CT 11/04/16 2326 Signed Impressions: Service Date/Time: Friday, November 04, 2016 23:45 - CONCLUSION: No acute intracranial findings. Jimmy Felton MD Abdomen/Pelvis CT 11/04/16 0000 Signed Impressions: Service Date/Time: Friday, November 04, 2016 23:48 - CONCLUSION: Markedly dilated urinary bladder with mild-moderate bilateral hydronephrosis Jimmy Felton MD Objective Remarks GENERAL: Patient is 71 yo sedated and intubated SKIN: Warm and dry. HEAD: Normocephalic. EYES: No scleral icterus. No injection or drainage. NECK: Supple, trachea midline. No JVD or lymphadenopathy. [place] J c-collar intact CARDIOVASCULAR: Regular rate and rhythm without murmurs, gallops, or rubs. RESPIRATORY: Breath sounds equal bilaterally. Mechanically ventilated GASTROINTESTINAL: Abdomen soft, non-tender, nondistended. OGT tube feeds infusing. MUSCULOSKELETAL: No cyanosis, or edema. Neuro: Sedated.GCS 11T , RASS-2 A/P Assessment and Plan NEURO: Acute metabolic encephalopathy C7-T1 fracture (T1 vertebral body comminuted fracture, bilateral C7 pedicle fracture extending to the right facet. Remote history of anterior C6-C7 and C4-C5 fusion with plate placement. -Pain control with when necessary IV morphine and Lortab -Fentanyl infusion at 150 mcgs for sedation and analgesia , maintaining RASS - 2. GCS 11T, following commands -CT head negative for acute findings. - 11/07 MRI spine:Fracture of the T1 vertebral body and T5 vertebral body. NSG is following Dr. Bowden RESP: Acute hypoxemic respiratory failure Pulmonary fibrosis/COPD exacerbation Probable HCAP -Continue with vent support keep sat >92%. On ACV RR 16, TV 450, PEEP5, FIO2.40% -Bronchodilators, Solumederol 60mg Q6 -ICU vent bundle, pulm is following-Dr. Escalera -CT chest showed diffuse GGO b/l -Sputum culture11/08 -budding yeast with pseudohyphae -Sputum Culture 11/09-Rare gram negative robin - Continue CPAP trials today CVS A Flutter with RVR Fluid overload -Monitor HR and BP keep MAP>65mmHg. On Cardizem 60mg QID, Metoprolol 12.5mg BID -Echo showed EF 45-50%, diffuse hypokinesis, cardiology is following, Dr. Barrera -Troponin negative GI: Constipation -Elevated LFT's, check US liver-no acute abnormality .dystrophic calcification right lobe, common bowel duct within normal limits - IV Protonix for GI prophylaxis -On TF-Glucerna 1.5 @45ml/hr @ goal, no residual -Patient on Colace, senna, MiraLAX and Dulcolax suppository added yesterday. No BM since admission to ICU, will add lactulose BID : Hydronephrosis from urinary retention/obstruction -Monitor renal function , I/O's, -Creatinine 1.6 stable -Renal US: Probable complicated cyst midpole left kidney measuring 2.0 cm. No evidence of hydronephrosis. ID: Probable healthcare associated pneumonia Probable sepsis Persistent fevers -Continue IV Vancomycin ,Zosyn and Diflucan (day 4) Monitor for signs of infections ( Fever, WBC) -Acetaminophen 650mg for temp greater than 101.0 -Sputum culture11/08 -budding yeast with pseudohyphae -Sputum Culture 11/09-Rare gram negative robin -Blood cultures11/08- NGTD -Broad-spectrum antibiotics with Zosyn and Vanco, Diflucan (day 4) -ID consulted- Dr. Phan, appreciate recommendations HEME: -Monitor CBC, CMP ENDO: Hypokalemia Hyperglycemia of critical illness -Electrolyte replacement per protocol. Sliding scale insulin if needed -On Thyroid 90mg daily, TSH: 0.123 -Glucose monitoring every 6 hours per ICU protocol -Sliding-scale insulin PROPH: -Bilateral lower extremity SCDs. Subcutaneous heparin for DVT prophylaxis. IV Protonix for GI prophylaxis LINES: -Utilize peripheral IVs, central line if needed This patient remains critically ill with one or more organ systems which are or may become a threat to life. I have spent in excess of 37 minutes discontinuously in the care and management of this patient. This time is exclusive of procedures, and includes, but is not limited to, evaluation of the patient, review of the medical record, discussions with family, consultants, nursing staff, or respiratory therapy, and documentation in the medical record. Discussed with DIRECTOR DRUG SAFETY at bedside and Dr. Rodríguez(). Physician Megha Pastrana MD Nov 11, 2016 08:32
[2016-11-11] MEDS: SODIUM CHLORIDE 0.9% FLUSH 5 ML FLUSH FLUSH SCH ×2 (09:00→20:05)
[2016-11-11] MEDS: TIOTROPIUM BROMIDE 18 MCG INH INH SCH (09:00)
[2016-11-11] MEDS: LEVOCETIRIZINE 5 MG PO SCH (09:00)
[2016-11-11] MEDS: DOCUSATE SODIUM 100 MG CAP PO SCH ×2 (09:05→20:05)
[2016-11-11] MEDS: DILTIAZEM HCL 60 MG TAB PO SCH ×4 (09:05→20:05)
[2016-11-11] MEDS: SENNOSIDES 8.6 MG TAB PO SCH (09:05)
[2016-11-11] MEDS: buPROPion HCL 100 MG TAB PO SCH ×2 (09:05→20:06)
[2016-11-11] MEDS: METOPROLOL TARTRATE 25 MG TAB PO SCH ×2 (09:05→20:07)
[2016-11-11] MEDS: LACTULOSE SYRUP 20 GM/30 ML CUP PO SCH ×2 (09:06→20:07)
[2016-11-11] MEDS: PIPERACIL-TAZO 3.375 GM PREMIX 50 ML IV SCH (09:07)
[2016-11-11] MEDS: CHLORHEXIDINE 0.12% (ORAL KIT) 15 ML CUP MT SCH ×2 (09:47→20:04)
[2016-11-11] MEDS: ACETAMINOPHEN/HYDROcodone 325 MG/5 MG TAB PO PRN (10:10)
[2016-11-11] MEDS ORDERED: POLYETHYLENE GLYCOL 17 GM PKG PO SCH (12:00)
[2016-11-11] MEDS: FLUCONAZOLE 200 MG PREMIX BAG 100 ML IV SCH (12:27)
[2016-11-11] MEDS: VANCOMYCIN INJ 1,250 MG in SODIUM CHLOR 0.9% 250 ML INJ 250 ML IV SCH (13:11)
--- NOTE | 2016-11-11 14:07 | MB ---
cc: MAK QUINTERO MD, FRANKLYN F. MD DATE OF CONSULTATION: 11/11/[address] Quintero HISTORY OF PRESENT ILLNESS This is a 71-year-old white female who was admitted to the hospital on 11/05/2016. The patient was evaluated in the emergency department after she developed generalized weakness and fell at home. The patient is currently intubated on the ventilator. I spoke to her in the room. He is a retired [employer] physician. He mentions that the patient was unsteady on her feet at home and fell. He could not lift her off the floor and therefore the ambulance was called and the patient was eventually brought to the emergency department for evaluation. She was evaluated by critical care medicine for acute hypoxemic respiratory failure and COPD exacerbation and she required a partial non-rebreather initially and then she was put on BiPAP. She was subsequently intubated on 11/08/2016. Initial workup in the emergency department revealed a heart rate of 110, temperature 100.4 and white blood cell count of 14.5 including 18% bands. She also had chest x-ray evaluation that revealed diffuse interstitial infiltrates and CT scan of the bladder revealed markedly dilated urinary bladder with mild to moderate bilateral hydronephrosis. Cultures including blood cultures on admission have no growth. The patient was recently in the hospital on November 03 and discharged on November 04. During that time she had a low grade fever. She was diagnosed with fracture of C7-T1. She has an interbody fusion from C6-C7 from prior with anterior cervical plates. She was maintained in a hard cervical collar. The patient was cleared for discharge from that hospital stay by neurosurgery. She had elevated temperature at the time of 101.6 degrees max and cultures of the blood were negative. Urinalysis on this admission revealed 2 white cells and a catheterized culture was not indicated. Blood cultures since this admission have no growth. Sputum culture has heavy growth of normal respiratory macy. The patient's notes that she has pulmonary fibrosis and she was on antibiotics about a week before she presented to the hospital at the beginning of October. She received cephalosporin antibiotic for about a week. He notes that she has no allergies to penicillin or cephalosporin. The temperature has been elevated over the last over the last three days. PAST MEDICAL HISTORY 1. Asthma. 2. Pulmonary fibrosis. 3. Gastroesophageal reflux disease. 4. Hemochromatosis. 5. Acid reflux. 6. Cholecystectomy. 7. Lumbar spine surgery. 8. Cervical spine surgery. 9. Hysterectomy. 10. Left parotid gland surgery. 11. Breast reduction. 12. Tonsillectomy. 13. Anterior cervical fusion of C6-C7. ALLERGIES 1. BETADINE. 2. IODINE. 3. THE PATIENT'S REPORTS SHE GETS UPSET STOMACH WITH CIPROFLOXACIN BUT THAT SHE IS UNABLE TO TOLERATE IV CIPROFLOXACIN. MEDICATIONS 1. Lopressor. 2. DuoNeb. 3. Vancomycin. 4. Piperacillin/tazobactam. 5. Fluconazole. 6. Cardizem. 7. Dulcolax. 8. Insulin. 9. Potassium. 10. Magnesium sulfate. 11. Singulair. 12. Albuterol nebulizers. 13. Spiriva. 14. Colace. 15. Xanax. 16. Subcutaneous heparin. SOCIAL HISTORY The patient is . No tobacco. Positive alcohol. No illicit drugs. FAMILY HISTORY Noncontributory. REVIEW OF SYSTEMS Unable to obtain. The patient is on the ventilator. PHYSICAL EXAMINATION GENERAL: This is a slender female who is intubated on the ventilator. She is in no acute distress. She is currently on CPAP. VITAL SIGNS: Temperature 101.1, BP 140/89, heart rate 133. The patient on 40% FIO2. HEENT: Unable to fully assess. The patient is intubated. No lesions on the face. Buccal mucosa appears moist. NECK: No adenopathy or swelling. The patient has a neck collar in place. LUNGS: Coarse rhonchi bilateral. HEART: Regular S1 and S2. No audible murmurs. ABDOMEN: Decreased bowel sounds, soft, no palpable masses. RECTAL: Not performed. EXTREMITIES: No clubbing or cyanosis. 1+ edema of the extremities. Pulses 2+, radial and dorsalis pedis. SKIN: No rash. NEUROLOGIC: Unable to fully assess. PSYCHIATRIC: Unable to fully assess. LABORATORY DATA WBC 13.0, platelet count 319, hemoglobin 10.7. Creatinine 1.65, BUN 60, sodium 153. Fever in patient admitted with falls and generalized weakness. The patient developed acute hypoxemic respiratory failure and required intubation and is now on a ventilator. Cultures to date are negative. IMPRESSION 1. Fever, questionable etiology. 2. Acute respiratory failure. 3. Leukocytosis. 4. Sepsis on admission indicated by elevated heart rate, elevated temperature, elevated white blood cell count. Source unclear but likely pulmonary. 5. Abnormal chest x-ray with bilateral interstitial infiltrates suggesting possible pneumonia versus COPD. Also likely cause of the fever could be drug related. The patient has been on antibiotic treatment since her fever began when she was in the hospital recently. She received beta lactam antibiotics at the previous admission and also now is receiving beta lactam as antibiotics as well. RECOMMENDATIONS 1. Discontinue piperacillin/tazobactam. 2. Continue fluconazole. 3. Continue vancomycin. 4. Add azithromycin for pulmonary coverage. 5. Monitor the temperature. 6. Monitor white blood cell count. 7. Additional culture and workup depending on the response of the patient. Of note she did have gram-negative bacteria in the Gram stain from the sputum sent on 11/09/2016; however, the culture shows heavy growth of normal respiratory macy. Thank you for this consultation. The case has been discussed with the patient's and also the critical care physician Dr. Quintero. Roberto Phan MD FD/TEO /12:55 PM /1:29 PM MARIA GUADALUPE
[2016-11-11] MEDS: AZITHROMYCIN INJ 500 MG in SODIUM CHLOR 0.9% 250 ML INJ 250 ML IV SCH (14:37)
[2016-11-11] MEDS: PANTOPRAZOLE SODIUM 40 MG VIAL IV PUSH SCH (14:40)
[2016-11-11] MEDS: ACETAMINOPHEN 325 MG TAB PO PRN (15:15)
--- NOTE | 2016-11-11 18:10 | PD.CARD.PN ---
Subjective Subjective Remarks Not on sedation, CPAP trial Elevated heart rate all day with continual fever Objective Medications Current Medications Medications (Trade) Dose Ordered Sig/Stephanie Route Start Time Stop Time Status Last Admin (Zofran Inj) 4 mg Q6H PRN IVP 11/05/16 02:15 (Heparin Inj) 5,000 units Q8H SQ 11/05/16 06:00 11/11/16 13:09 (Narcan Inj) 0.4 mg UNSCH PRN IV 11/05/16 02:15 (Proair Hfa Inh) 1 puff Q4H PRN INH 11/05/16 08:45 Hold 11/05/16 21:09 (Xanax) 0.5 mg BID PRN PO 11/05/16 08:45 11/10/16 08:41 (Wellbutrin) 150 mg BID PO 11/05/16 09:00 11/11/16 09:05 (Singulair) 10 mg HS PO 11/05/16 21:00 11/10/16 20:37 Patient Own Medication PT OWN MED: (Levocetirizine 5 MG) DAILY PO 11/06/16 09:00 (Vancomycin Consult Pharmacy) 0 ml @ 0 mls/hr UNSCH OTHER 11/05/16 09:00 (Colace) 100 mg BID PO 11/05/16 09:00 11/11/16 09:05 (Senokot) 17.2 mg DAILY PO 11/05/16 09:00 11/11/16 09:05 (Catapres) 0.1 mg Q6H PRN PO 11/05/16 09:15 (Spiriva Inh) 18 mcg DAILY INH 11/05/16 11:00 11/06/16 09:41 (Proair Hfa Inh) 2 puff QID INH 11/05/16 13:00 Hold 11/06/16 12:44 ([place] 5-325 Mg) 2 tab Q4H PRN PO 11/06/16 09:45 11/11/16 10:10 ([place] 5-325 Mg) 1 tab Q4H PRN PO 11/06/16 08:30 ([place] Thyroid) 90 mg DAILY@06 PO 11/07/16 06:00 11/11/16 04:08 Morphine Sulfate 4 mg 4 mg Q4H PRN IV 11/06/16 11:45 11/11/16 04:08 Potassium Chloride 100 ml @ 50 mls/hr Q2H PRN IV-CENTRAL 11/06/16 13:00 11/07/16 06:53 (KCl 20 Meq Premix Inj) 100 ml @ 50 mls/hr Q2H PRN IV 11/06/16 13:00 Potassium Chloride 40 meq 40 meq UNSCH PRN PO/TUBE 11/06/16 13:00 Potassium Chloride 100 ml @ 25 mls/hr UNSCH PRN IV-CENTRAL 11/06/16 13:00 Potassium Chloride 100 ml @ 50 mls/hr Q2H PRN IV 11/06/16 13:00 11/06/16 18:12 (Magnesium Sulfate Inj/NS Inj) 100 ml @ 50 mls/hr UNSCH PRN IV 11/06/16 13:00 Magnesium Oxide 800 mg 800 mg UNSCH PRN PO 11/06/16 13:00 (Magnesium Sulfate Inj/NS Inj) 100 ml @ 50 mls/hr UNSCH PRN IV 11/06/16 13:00 11/07/16 01:13 Potassium Phosphate 2000 mg 2,000 mg Q4H PRN PO 11/06/16 13:00 (Sodium Phosphate Inj/NS 250 ml Inj) 250 ml @ 42 mls/hr UNSCH PRN IV 11/06/16 13:00 11/08/16 09:00 (KCl 40 Meq/30 ml Liq) 40 meq UNSCH PRN PO/TUBE 11/06/16 13:00 Potassium Phosphate 2000 mg 2,000 mg UNSCH PRN PO/TUBE 11/06/16 13:00 (Potassium Phosphate Inj/NS 250 ml Inj) 260 ml @ 42 mls/hr UNSCH PRN IV 11/06/16 13:00 11/10/16 15:06 (SoluMEDROL INJ) 60 mg Q8HR IV PUSH 11/06/16 22:00 11/11/16 13:09 (Protonix Inj) 40 mg Q24H IV PUSH 11/06/16 15:00 11/11/16 14:40 (Peridex 0.12% Liq) 15 ml BID@08,20 MT 11/06/16 20:00 11/11/16 09:47 Diltiazem HCl 60 mg 60 mg QID PO 11/07/16 09:00 11/11/16 17:36 Fentanyl Citrate 250 ml @ 0 mls/hr TITRATE IV 11/07/16 09:45 11/09/16 10:49 (Diflucan 200 Mg Premix Bag) 100 ml @ 100 mls/hr Q24H IV 11/08/16 13:00 11/11/16 12:27 Acetaminophen 650 mg 650 mg Q4H PRN PO 11/08/16 20:15 11/11/16 15:15 (Vancomycin Inj/ NS 250 ml Inj) 262.5 ml @ 250 mls/hr Q24H IV 11/10/16 14:00 11/11/16 13:11 Miscellaneous Information SPECIFIC LAB TO BE DRAWN:VANCOMYCIN TROUGH DATE TO... ONCE ONCE XX 11/12/16 13:45 11/12/16 13:46 (Free Water) VOLUME: 200 ML Q6HR G-TUBE 11/10/16 12:00 11/11/16 17:36 (Dulcolax Supp) 10 mg DAILY PRN RECTAL 11/10/16 11:30 11/10/16 12:44 (D50w (Vial) Inj) 25 ml UNSCH PRN IV PUSH 11/10/16 11:30 (Glucagon Inj) 1 mg UNSCH PRN OTHER 11/10/16 11:30 (Lopressor) 12.5 mg Q12HR PO 11/10/16 21:00 11/11/16 09:05 (Pill Splitter) 1 ea UNSCH PRN OTHER 11/10/16 17:45 11/10/16 20:36 (Miralax) 17 gm BID PO 11/11/16 21:00 Lactulose 30 ml 30 ml BID PO 11/11/16 09:00 11/11/16 09:06 (Zithromax Inj/ NS 250 ml Inj) 250 ml @ 250 mls/hr Q24H IV 11/11/16 13:00 11/11/16 14:37 Vital Signs / I&O Vital Signs Date Time Temp Pulse Resp B/P Pulse Ox O2 Delivery O2 Flow Rate FiO2 11/11/16 16:00 101.7 115 25 124/69 97 11/11/16 16:00 40 11/11/16 16:00 115 11/11/16 15:49 92 40 11/11/16 14:00 120 11/11/16 12:00 40 11/11/16 12:00 101.5 118 25 127/66 93 11/11/16 12:00 120 11/11/16 11:27 97 40 11/11/16 10:19 40 11/11/16 10:00 148 11/11/16 08:14 96 40 11/11/16 08:00 101.1 136 16 140/89 97 11/11/16 08:00 136 11/11/16 08:00 40 11/11/16 07:00 97 Mechanical Ventilator 40 11/11/16 06:00 136 11/11/16 04:20 96 40 11/11/16 04:00 100.8 132 16 126/75 95 11/11/16 04:00 40 11/11/16 04:00 132 11/11/16 02:00 128 11/11/16 01:12 98 40 11/11/16 00:00 40 11/11/16 00:00 107 11/11/16 00:00 101.1 107 16 126/75 95 11/10/16 22:00 93 40 11/10/16 22:00 90 11/10/16 21:37 16 11/10/16 20:00 40 11/10/16 20:00 101.8 92 16 128/69 92 11/10/16 20:00 92 11/10/16 19:00 92 Mechanical Ventilator 40 I/O 11/10/16 11/10/16 11/10/16 11/11/16 11/11/16 11/11/16 07:00 15:00 23:00 07:00 15:00 23:00 Intake Total 630 ml 944 ml 1211 ml 607 ml 800 ml Output Total 600 ml 650 ml 700 ml 601 ml 850 ml 0 ml Balance 30 ml 294 ml 511 ml 6 ml -50 ml 0 ml IV Total 295 ml 456 ml 453 ml 89 ml 445 ml Tube Feeding 235 ml 288 ml 358 ml 318 ml 355 ml Other 100 ml 200 ml 400 ml 200 ml Output Urine Total 600 ml 650 ml 700 ml 600 ml 850 ml Stool Total 0 ml 0 ml 1 ml Tube Feeding Residual Discard 0 ml 0 ml 0 ml 0 ml 0 ml # Bowel Movements 0 0 Physical Exam GENERAL: On the vent, C-collar in place SKIN: Warm and dry. HEAD: Atraumatic. Normocephalic. EYES: Pupils equal and round. No scleral icterus. No injection or drainage. ENT: Mucous membranes pink and moist. NECK: Trachea midline. No JVD. CARDIOVASCULAR: Irregularly irregular RESPIRATORY: Decreased breath sounds bilaterally GASTROINTESTINAL: Abdomen soft, non-tender, nondistended. Hepatic and splenic margins not palpable. MUSCULOSKELETAL: Extremities without clubbing, cyanosis, or edema. No obvious deformities. NEUROLOGICAL: On the vent, awakes, follows commands PSYCHIATRIC: Unable to obtain Laboratory Laboratory Tests Test 11/11/16 11/11/16 11/11/16 04:16 05:39 12:20 White Blood Count 13.0 TH/MM3 Red Blood Count 3.32 MIL/MM3 Hemoglobin 10.7 GM/DL Hematocrit 33.0 % Mean Corpuscular Volume 99.3 FL Mean Corpuscular Hemoglobin 32.2 PG Mean Corpuscular Hemoglobin 32.4 % Concent Red Cell Distribution Width 14.3 % Platelet Count 319 TH/MM3 Mean Platelet Volume 9.9 FL Sodium Level 153 MEQ/L Potassium Level 4.6 MEQ/L Chloride Level 113 MEQ/L Carbon Dioxide Level 31.3 MEQ/L Anion Gap 9 MEQ/L Blood Urea Nitrogen 60 MG/DL Creatinine 1.65 MG/DL Estimat Glomerular Filtration 31 ML/MIN Rate Random Glucose 220 MG/DL Calcium Level 8.5 MG/DL Phosphorus Level 3.1 MG/DL Magnesium Level 2.9 MG/DL Blood Gas Puncture Site RT RADIAL Blood Gas Patient Temperature 98.6 Blood Gas HCO3 32 mmol/L Blood Gas Base Excess 7.4 mmol/L Blood Gas Oxygen Saturation 92 % Arterial Blood pH 7.44 Arterial Blood Partial 48 mmHg Pressure CO2 Arterial Blood Partial 78 mmHg Pressure O2 Arterial Blood Oxygen Content 14.5 Vol % Arterial Blood 1.4 % Carboxyhemoglobin Arterial Blood Methemoglobin 1.0 % Blood Gas Hemoglobin 11.1 G/DL Oxygen Delivery Device VENTILATOR Blood Gas Ventilator Setting SEE COMMENT Blood Gas Inspired Oxygen 40 % Lactic Acid Level 2.3 mmol/L Assessment and Plan Problem List: (1) T1 vertebral fracture (2) C7 cervical fracture (3) Pneumonia (4) Sepsis (5) Fall Assessment and Plan 1) Afib/flutter with more elevated heart rate, most likely due to fever all day... will increase Lopressor at this time, Digoxin only if needed 2) EF 45-50% but very tachycardiac during it 3) ASA for anticoagulation, not a good full anticoagulant candidate with multiple falls recently 4) Vent per critical care 5) Spoke to the who agrees with the current plan of no anticoagulation 6) Will follow up with Dr. Alejandro outpatient 7) May need Lopressor added, if hypotension may need digoxin loaded for the acute setting, but probably not prison unless needed Problem Qualifiers (1) T1 vertebral fracture: Qualified Code: S22.019D - Closed fracture of first thoracic vertebra with routine healing, unspecified fracture morphology, subsequent encounter (2) C7 cervical fracture: Qualified Code: S12.601D - Closed nondisplaced fracture of seventh cervical vertebra with routine healing, unspecified fracture morphology, subsequent encounter (3) Pneumonia: Qualified Code: J18.9 - Pneumonia of both lungs due to infectious organism, unspecified part of lung (4) Sepsis: Qualified Code: A41.9 - Sepsis, due to unspecified organism Erick Barrera DO Nov 11, 2016 18:10
[2016-11-11] MEDS: POLYETHYLENE GLYCOL 17 GM PKG PO SCH (20:05)
[2016-11-11] MEDS: MONTELUKAST SODIUM 10 MG TAB PO SCH (20:06)
--- NOTE | 2016-11-11 22:50 | RADRPT ---
EXAM DATE/TIME: 11/11/2016 21:22 [facility] COMPARISON: No previous studies available for comparison. INDICATIONS : Thrombosis. MEDICAL HISTORY : Hypertension. Gastroesophageal reflux disease. Asthma. Confusion. COPD. Weakness. Cardiac disorders. SURGICAL HISTORY : Appendectomy. C4 Neck surgery. Bone spur. Lower back surgery. ENCOUNTER: Initial ACUITY: 1 day PAIN SCORE: Non-responsive LOCATION: Bilateral legs. TECHNIQUE: Venous ultrasound of the left and right leg was performed from the inguinal ligament to the proximal calf. Real-time, color Doppler and spectral tracing, compression and augmentation techniques were us ed. FINDINGS: RIGHT LEG: There is normal compressibility of the deep venous system from the inguinal region to the proximal ca lf. No echogenic clot is seen in the lumen of the common femoral, femoral, popliteal, and posterior tibial veins. There is a normal response of the venous system to proximal and distal augmentation an d respiration. LEFT LEG: There is normal compressibility of the deep venous system from the inguinal region to the proximal ca lf. No echogenic clot is seen in the lumen of the common femoral, femoral, popliteal, and posterior tibial veins. There is a normal response of the venous system to proximal and distal augmentation an d respiration. CONCLUSION: Negative exam with no evidence of deep venous thrombosis. Rex Corcoran MD on November 11, 2016 at 22:48 Board Certified Radiologist. This report was verified electronically.
[2016-11-11] MEDS: cloNIDine HCL 0.1 MG TAB PO PRN (23:09)
--- NOTE | 2016-11-11 23:19 | RADRPT ---
EXAM DATE/TIME: 11/11/2016 21:51 [facility] COMPARISON: No previous studies available for comparison. INDICATIONS : Thrombosis. MEDICAL HISTORY : Hypertension. Gastroesophageal reflux disease. COPD. Asthma. SURGICAL HISTORY : Appendectomy.Hysterectomy. C4 neck surgery. Bone spur repair. Lower back surgery. ENCOUNTER: Initial ACUITY: 1 day PAIN SCORE: Non-responsive LOCATION: Bilateral arm FINDINGS: RIGHT UPPER EXTREMITY: There is spontaneous flow documented in the brachial, basilic, axillary, and subclavian veins. The v essels are compressible and augmentation response is documented. No filling defects are seen. The f low is phasic with respiration. The jugular was not visualized due to neck brace. There is evidence o f thrombosis in the distal right cephalic vein. LEFT UPPER EXTREMITY: There is spontaneous flow documented in the brachial, basilic, cephalic, axillary, and subclavian vei ns. The vessels are compressible and augmentation response is documented. No filling defects are se en. The flow is phasic with respiration. The jugular was not visualized due to neck brace. CONCLUSION: 1. No evidence of DVT. 2. Focal superficial thrombosis involving the distal right cephalic vein. Roland Maier MD on November 11, 2016 at 23:15 Board Certified Radiologist. This report was verified electronically.
[2016-11-12] VITALS (20 sets, daily range): BP systolic 124–146; BP diastolic 75–95; PULSE 108–164; RESP 11–20; TEMP 98.3–99.3; O2SAT 91–97
[2016-11-12] MEDS: RESP: ALBUTEROL 2.5 MG/IPRATROPIUM 0.5 MG NEB (SCH) NEB ×7 (00:10→23:53)
[2016-11-12] MEDS: FREE WATER G-TUBE SCH ×6 (00:59→23:29)
--- NOTE | 2016-11-12 03:25 | RADRPT ---
EXAM DATE/TIME: 11/12/2016 02:40 [facility] COMPARISON: CHEST SINGLE AP, November 09, 2016, 3:36. INDICATIONS : Evaluate for pulmonary disease. MEDICAL HISTORY : Hypertension. Cardiovascular disease. Pulmonary fibrosis SURGICAL HISTORY : Breast reduction, spinal fusion ENCOUNTER: Subsequent ACUITY: 3 days PAIN SCORE: Non-responsive. LOCATION: Bilateral chest FINDINGS: ET tube and NG tube are in good position. There is no pneumothorax. There is mild interstitial infilt rates bilaterally. Otherwise, the lungs are grossly clear. There are no pleural effusions. Heart size is stable and within normal limits. CONCLUSION: No significant interval change. Roland Maier MD on November 12, 2016 at 3:22 Board Certified Radiologist. This report was verified electronically.
[2016-11-12] MEDS: MORPHINE SULFATE 4 MG/ML INJ IV PRN ×2 (03:31→08:03)
[2016-11-12] MEDS ORDERED: DIGOXIN 0.5 MG/2 ML VIAL ONE (03:39)
[2016-11-12] MEDS ORDERED: DIGOXIN 0.5 MG/2 ML VIAL IV PUSH ONE (03:45)
[2016-11-12] MEDS ORDERED: MORPHINE SULFATE 4 MG/ML INJ IV PUSH ONE (03:45)
[2016-11-12] MEDS ORDERED: ESMOLOL DRIP INJ PREMIX 250 ML IV SCH (04:45)
[2016-11-12] MEDS ORDERED: SODIUM CHLOR 0.9% 1000 ML INJ 1,000 ML IV ONE (04:45)
[2016-11-12 04:52] LABS: AUTOMATED NEUTROPHIL # 19.8 TH/MM3 (1.8-7.7); BASOPHIL # 0.1 TH/MM3 (0-0.2); BASOPHIL % 0.4 % (0.0-2.0); HEMATOCRIT 36.8 % (35.0-46.0); HEMO FLAGS DIFF FINAL; LYMPH % 3.4 % (9.0-44.0); LYMPHOCYTE # 0.7 TH/MM3 (1.0-4.8); MEAN CELL VOLUME 100.2 FL (80.0-100.0); MEAN CORPUSCULAR HEMOGLOBIN 32.8 PG (27.0-34.0); MEAN CORPUSCULAR HGB CONC 32.7 % (32.0-36.0); MONO % 4.4 % (0.0-8.0); NEUT % 91.8 % (16.0-70.0); PLATELET COUNT 371 TH/MM3 (150-450); RED BLOOD COUNT 3.67 MIL/MM3 (4.00-5.30); RED CELL DISTRIBUTION WIDTH 14.7 % (11.6-17.2); WHITE BLOOD COUNT 21.6 TH/MM3 (4.0-11.0)
[2016-11-12 04:58] LABS: ALKALINE PHOSPHATASE 96 U/L (45-117); ALT (GPT) 128 U/L (10-53); ANION GAP 8 MEQ/L (5-15); AST (GOT) 30 U/L (15-37); BICARBONATE 32.5 MEQ/L (21.0-32.0); BLOOD UREA NITROGEN 55 MG/DL (7-18); CHLORIDE 112 MEQ/L (98-107); GLOMERULAR FILTRATION RATE 34 ML/MIN (>89); MAGNESIUM 2.9 MG/DL (1.5-2.5); POTASSIUM 4.5 MEQ/L (3.5-5.1); SODIUM (NA) 152 MEQ/L (136-145); TOTAL BILIRUBIN ADULT 0.5 MG/DL (0.2-1.0)
[2016-11-12] MEDS: THYROID 30 MG TAB PO SCH (05:14)
[2016-11-12] MEDS: methylPREDNISolone SOD SUCC 125 MG/2 ML VIAL IV PUSH SCH ×3 (05:14→21:19)
[2016-11-12] MEDS: HEPARIN SODIUM - SQ 10,000 UNITS/ML VIAL SQ SCH ×3 (05:15→21:20)
[2016-11-12] MEDS: INSULIN ASPART SUPPLEMENTAL SCALE SQ SCH (06:46)
[2016-11-12] MEDS: DOCUSATE SODIUM 100 MG CAP PO SCH ×2 (08:04→20:01)
[2016-11-12] MEDS: METOPROLOL TARTRATE 25 MG TAB PO SCH ×2 (08:04→20:01)
[2016-11-12] MEDS: DILTIAZEM HCL 60 MG TAB PO SCH ×4 (08:04→23:28)
[2016-11-12] MEDS: LACTULOSE SYRUP 20 GM/30 ML CUP PO SCH (08:04)
[2016-11-12] MEDS: TIOTROPIUM BROMIDE 18 MCG INH INH SCH (08:04)
[2016-11-12] MEDS: SENNOSIDES 8.6 MG TAB PO SCH (08:04)
[2016-11-12] MEDS: POLYETHYLENE GLYCOL 17 GM PKG PO SCH ×2 (08:04→20:01)
[2016-11-12] MEDS: buPROPion HCL 100 MG TAB PO SCH ×2 (08:04→20:01)
[2016-11-12] MEDS: SODIUM CHLORIDE 0.9% FLUSH 5 ML FLUSH FLUSH SCH ×2 (08:04→20:02)
[2016-11-12] MEDS: CHLORHEXIDINE 0.12% (ORAL KIT) 15 ML CUP MT SCH ×2 (08:05→20:08)
[2016-11-12] MEDS: LEVOCETIRIZINE 5 MG PO SCH (08:18)
[2016-11-12] MEDS: ACETAMINOPHEN/HYDROcodone 325 MG/5 MG TAB PO PRN (09:16)
[2016-11-12] MEDS: RESP: BUDESONIDE 0.5 MG/2 ML NEB NEB SCH ×2 (09:52→19:24)
[2016-11-12] MEDS ORDERED: DEXTROSE 50% IN WATER 50 ML VIAL(D50) IV PUSH PRN (10:30)
[2016-11-12] MEDS ORDERED: GLUCAGON 1 MG/ML VIAL OTHER PRN (10:30)
--- NOTE | 2016-11-12 11:03 | PD.CARD.PN ---
Subjective Subjective Remarks Waking up to voice, still with tachycardia over night Objective Medications Current Medications Medications (Trade) Dose Ordered Sig/Stephanie Route Start Time Stop Time Status Last Admin (NS Flush) 2 ml UNSCH PRN FLUSH 11/05/16 02:15 (NS Flush) 2 ml BID FLUSH 11/05/16 09:00 11/12/16 08:04 (Zofran Inj) 4 mg Q6H PRN IVP 11/05/16 02:15 (Heparin Inj) 5,000 units Q8H SQ 11/05/16 06:00 11/12/16 05:15 (Narcan Inj) 0.4 mg UNSCH PRN IV 11/05/16 02:15 (Proair Hfa Inh) 1 puff Q4H PRN INH 11/05/16 08:45 Hold 11/05/16 21:09 (Xanax) 0.5 mg BID PRN PO 11/05/16 08:45 11/10/16 08:41 (Wellbutrin) 150 mg BID PO 11/05/16 09:00 11/12/16 08:04 (Singulair) 10 mg HS PO 11/05/16 21:00 11/11/16 20:06 Patient Own Medication PT OWN MED: (Levocetirizine 5 MG) DAILY PO 11/06/16 09:00 (Vancomycin Consult Pharmacy) 0 ml @ 0 mls/hr UNSCH OTHER 11/05/16 09:00 (Colace) 100 mg BID PO 11/05/16 09:00 11/12/16 08:04 (Senokot) 17.2 mg DAILY PO 11/05/16 09:00 11/11/16 09:05 (Catapres) 0.1 mg Q6H PRN PO 11/05/16 09:15 11/11/16 23:09 (Spiriva Inh) 18 mcg DAILY INH 11/05/16 11:00 11/06/16 09:41 (Proair Hfa Inh) 2 puff QID INH 11/05/16 13:00 Hold 11/06/16 12:44 ([place] 5-325 Mg) 2 tab Q4H PRN PO 11/06/16 09:45 11/12/16 09:16 ([place] 5-325 Mg) 1 tab Q4H PRN PO 11/06/16 08:30 ([place] Thyroid) 90 mg DAILY@06 PO 11/07/16 06:00 11/12/16 05:14 Morphine Sulfate 4 mg 4 mg Q4H PRN IV 11/06/16 11:45 11/12/16 08:03 Potassium Chloride 100 ml @ 50 mls/hr Q2H PRN IV-CENTRAL 11/06/16 13:00 11/07/16 06:53 (KCl 20 Meq Premix Inj) 100 ml @ 50 mls/hr Q2H PRN IV 11/06/16 13:00 Potassium Chloride 40 meq 40 meq UNSCH PRN PO/TUBE 11/06/16 13:00 Potassium Chloride 100 ml @ 25 mls/hr UNSCH PRN IV-CENTRAL 11/06/16 13:00 Potassium Chloride 100 ml @ 50 mls/hr Q2H PRN IV 11/06/16 13:00 11/06/16 18:12 (Magnesium Sulfate Inj/NS Inj) 100 ml @ 50 mls/hr UNSCH PRN IV 11/06/16 13:00 Magnesium Oxide 800 mg 800 mg UNSCH PRN PO 11/06/16 13:00 (Magnesium Sulfate Inj/NS Inj) 100 ml @ 50 mls/hr UNSCH PRN IV 11/06/16 13:00 11/07/16 01:13 Potassium Phosphate 2000 mg 2,000 mg Q4H PRN PO 11/06/16 13:00 (Sodium Phosphate Inj/NS 250 ml Inj) 250 ml @ 42 mls/hr UNSCH PRN IV 11/06/16 13:00 11/08/16 09:00 (KCl 40 Meq/30 ml Liq) 40 meq UNSCH PRN PO/TUBE 11/06/16 13:00 Potassium Phosphate 2000 mg 2,000 mg UNSCH PRN PO/TUBE 11/06/16 13:00 (Potassium Phosphate Inj/NS 250 ml Inj) 260 ml @ 42 mls/hr UNSCH PRN IV 11/06/16 13:00 11/10/16 15:06 (SoluMEDROL INJ) 60 mg Q8HR IV PUSH 11/06/16 22:00 11/12/16 05:14 (Protonix Inj) 40 mg Q24H IV PUSH 11/06/16 15:00 11/11/16 14:40 (Peridex 0.12% Liq) 15 ml BID@08,20 MT 11/06/16 20:00 11/12/16 08:05 Diltiazem HCl 60 mg 60 mg QID PO 11/07/16 09:00 11/12/16 08:04 Fentanyl Citrate 250 ml @ 0 mls/hr TITRATE IV 11/07/16 09:45 11/09/16 10:49 (Diflucan 200 Mg Premix Bag) 100 ml @ 100 mls/hr Q24H IV 11/08/16 13:00 11/11/16 12:27 Acetaminophen 650 mg 650 mg Q4H PRN PO 11/08/16 20:15 11/11/16 15:15 (Vancomycin Inj/ NS 250 ml Inj) 262.5 ml @ 250 mls/hr Q24H IV 11/10/16 14:00 11/11/16 13:11 Miscellaneous Information SPECIFIC LAB TO BE DRAWN:VANCOMYCIN TROUGH DATE TO... ONCE ONCE XX 11/12/16 13:45 11/12/16 13:46 (Free Water) VOLUME: 200 ML Q6HR G-TUBE 11/10/16 12:00 11/12/16 05:15 (Dulcolax Supp) 10 mg DAILY PRN RECTAL 11/10/16 11:30 11/10/16 12:44 (Pill Splitter) 1 ea UNSCH PRN OTHER 11/10/16 17:45 11/10/16 20:36 (Miralax) 17 gm BID PO 11/11/16 21:00 11/11/16 20:05 Lactulose 30 ml 30 ml BID PO 11/11/16 09:00 11/11/16 20:07 (Zithromax Inj/ NS 250 ml Inj) 250 ml @ 250 mls/hr Q24H IV 11/11/16 13:00 11/11/16 14:37 (Lopressor) 25 mg Q12HR PO 11/11/16 21:00 11/12/16 08:04 (D50w (Vial) Inj) 25 ml UNSCH PRN IV PUSH 11/12/16 10:30 (Glucagon Inj) 1 mg UNSCH PRN OTHER 11/12/16 10:30 Vital Signs / I&O Vital Signs Date Time Temp Pulse Resp B/P Pulse Ox O2 Delivery O2 Flow Rate FiO2 11/12/16 10:00 109 11/12/16 08:53 94 40 11/12/16 08:53 40 11/12/16 08:14 95 40 11/12/16 08:00 152 11/12/16 08:00 99.3 152 20 124/95 94 11/12/16 08:00 40 11/12/16 07:00 94 Mechanical Ventilator 11/12/16 06:00 116 11/12/16 04:30 95 40 11/12/16 04:00 99.3 164 16 127/85 97 11/12/16 04:00 164 11/12/16 04:00 40 11/12/16 02:00 133 11/12/16 01:30 97 60 11/12/16 00:00 40 11/12/16 00:00 98.8 114 16 146/91 97 11/12/16 00:00 114 11/11/16 22:26 97 60 11/11/16 22:00 120 11/11/16 20:00 100.3 118 13 131/99 91 11/11/16 20:00 40 11/11/16 20:00 110 11/11/16 19:00 93 Mechanical Ventilator 11/11/16 19:00 95 60 11/11/16 18:00 111 11/11/16 16:00 101.7 115 25 124/69 97 11/11/16 16:00 40 11/11/16 16:00 115 11/11/16 15:49 92 40 11/11/16 14:00 120 11/11/16 12:00 40 11/11/16 12:00 101.5 118 25 127/66 93 11/11/16 12:00 120 11/11/16 11:27 97 40 I/O 11/11/16 11/11/16 11/11/16 11/12/16 11/12/16 11/12/16 07:00 15:00 23:00 07:00 15:00 23:00 Intake Total 607 ml 800 ml 792 ml 1449 ml Output Total 601 ml 850 ml 700 ml 675 ml 0 ml Balance 6 ml -50 ml 92 ml 774 ml 0 ml IV Total 89 ml 445 ml 305 ml 965 ml Tube Feeding 318 ml 355 ml 327 ml 284 ml Other 200 ml 160 ml 200 ml Output Urine Total 600 ml 850 ml 700 ml 675 ml Stool Total 1 ml Tube Feeding Residual Discard 0 ml 0 ml 0 ml 0 ml 0 ml # Bowel Movements 0 1 2 Physical Exam GENERAL: On the vent, C-collar in place SKIN: Warm and dry. HEAD: Atraumatic. Normocephalic. EYES: Pupils equal and round. No scleral icterus. No injection or drainage. ENT: Mucous membranes pink and moist. NECK: Trachea midline. No JVD. CARDIOVASCULAR: Irregularly irregular RESPIRATORY: Decreased breath sounds bilaterally GASTROINTESTINAL: Abdomen soft, non-tender, nondistended. Hepatic and splenic margins not palpable. MUSCULOSKELETAL: Extremities without clubbing, cyanosis, or edema. No obvious deformities. NEUROLOGICAL: On the vent, awakes, follows commands PSYCHIATRIC: Unable to obtain Laboratory Laboratory Tests Test 11/11/16 11/12/16 12:20 03:52 Lactic Acid Level 2.3 mmol/L White Blood Count 21.6 TH/MM3 Red Blood Count 3.67 MIL/MM3 Hemoglobin 12.1 GM/DL Hematocrit 36.8 % Mean Corpuscular Volume 100.2 FL Mean Corpuscular Hemoglobin 32.8 PG Mean Corpuscular Hemoglobin 32.7 % Concent Red Cell Distribution Width 14.7 % Platelet Count 371 TH/MM3 Mean Platelet Volume 10.0 FL Neutrophils (%) (Auto) 91.8 % Lymphocytes (%) (Auto) 3.4 % Monocytes (%) (Auto) 4.4 % Eosinophils (%) (Auto) 0.0 % Basophils (%) (Auto) 0.4 % Neutrophils # (Auto) 19.8 TH/MM3 Lymphocytes # (Auto) 0.7 TH/MM3 Monocytes # (Auto) 0.9 TH/MM3 Eosinophils # (Auto) 0.0 TH/MM3 Basophils # (Auto) 0.1 TH/MM3 CBC Comment DIFF FINAL Differential Comment Sodium Level 152 MEQ/L Potassium Level 4.5 MEQ/L Chloride Level 112 MEQ/L Carbon Dioxide Level 32.5 MEQ/L Anion Gap 8 MEQ/L Blood Urea Nitrogen 55 MG/DL Creatinine 1.50 MG/DL Estimat Glomerular Filtration 34 ML/MIN Rate Random Glucose 281 MG/DL Calcium Level 8.7 MG/DL Phosphorus Level 3.5 MG/DL Magnesium Level 2.9 MG/DL Total Bilirubin 0.5 MG/DL Aspartate Amino Transf 30 U/L (AST/SGOT) Alanine Aminotransferase 128 U/L (ALT/SGPT) Alkaline Phosphatase 96 U/L Total Protein 7.0 GM/DL Albumin 2.4 GM/DL Assessment and Plan Problem List: (1) T1 vertebral fracture (2) C7 cervical fracture (3) Pneumonia (4) Sepsis (5) Fall Assessment and Plan 1) Afib/flutter with more elevated heart rate, most likely due to fever all day... changed Cardizem to Q6 instead of QID, Digoxin as needed 2) EF 45-50% but very tachycardiac during it 3) ASA for anticoagulation, not a good full anticoagulant candidate with multiple falls recently 4) Vent per critical care 5) Spoke to the who agrees with the current plan of no anticoagulation 6) Will follow up with Dr. Alejandro outpatient 7) Unsure of cause of fever Problem Qualifiers (1) T1 vertebral fracture: Qualified Code: S22.019D - Closed fracture of first thoracic vertebra with routine healing, unspecified fracture morphology, subsequent encounter (2) C7 cervical fracture: Qualified Code: S12.601D - Closed nondisplaced fracture of seventh cervical vertebra with routine healing, unspecified fracture morphology, subsequent encounter (3) Pneumonia: Qualified Code: J18.9 - Pneumonia of both lungs due to infectious organism, unspecified part of lung (4) Sepsis: Qualified Code: A41.9 - Sepsis, due to unspecified organism Erick Barrera DO Nov 12, 2016 11:02
[2016-11-12] MEDS: fentaNYL DRIP 250 ML IV SCH (11:12)
--- NOTE | 2016-11-12 11:23 | HHI.IDPN ---
Note Infectious Disease Note ID follow up. Patient seen 11/11/15 for fevers. She is on the vent. awake and agitated. Temp remains elevated but lower thia am. [place]ura secretions. Failed CPAP yesterday. PAST MEDICAL HISTORY 1. Asthma. 2. Pulmonary fibrosis. 3. Gastroesophageal reflux disease. 4. Hemochromatosis. 5. Acid reflux. 6. Cholecystectomy. 7. Lumbar spine surgery. 8. Cervical spine surgery. 9. Hysterectomy. 10. Left parotid gland surgery. 11. Breast reduction. 12. Tonsillectomy. 13. Anterior cervical fusion of C6-C7. ALLERGIES 1. BETADINE. 2. IODINE. 3. THE PATIENT'S REPORTS SHE GETS UPSET STOMACH WITH CIPROFLOXACIN BUT THAT SHE IS UNABLE TO TOLERATE IV CIPROFLOXACIN. ANTIBIOTICS: Azithromycin Vancomycin. Fluconazole. Other meds reviewed. SOCIAL HISTORY No tobacco. Positive alcohol. No illicit drugs. REVIEW OF SYSTEMS Unable to obtain. The patient is on the ventilator. OBJECTIVE: Vital Signs Date Time Temp Pulse Resp B/P Pulse Ox O2 Delivery O2 Flow Rate FiO2 11/12/16 10:00 109 11/12/16 08:53 94 40 11/12/16 08:53 40 11/12/16 08:14 95 40 11/12/16 08:00 152 11/12/16 08:00 99.3 152 20 124/95 94 11/12/16 08:00 40 11/12/16 07:00 94 Mechanical Ventilator 11/12/16 06:00 116 11/12/16 04:30 95 40 11/12/16 04:00 99.3 164 16 127/85 97 11/12/16 04:00 164 11/12/16 04:00 40 11/12/16 02:00 133 11/12/16 01:30 97 60 11/12/16 00:00 40 11/12/16 00:00 98.8 114 16 146/91 97 11/12/16 00:00 114 11/11/16 22:26 97 60 11/11/16 22:00 120 11/11/16 20:00 100.3 118 13 131/99 91 11/11/16 20:00 40 11/11/16 20:00 110 11/11/16 19:00 93 Mechanical Ventilator 11/11/16 19:00 95 60 11/11/16 18:00 111 11/11/16 16:00 101.7 115 25 124/69 97 11/11/16 16:00 40 11/11/16 16:00 115 11/11/16 15:49 92 40 11/11/16 14:00 120 11/11/16 12:00 40 11/11/16 12:00 101.5 118 25 127/66 93 11/11/16 12:00 120 11/11/16 11:27 97 40 Laboratory Tests Test 11/11/16 11/12/16 04:16 03:52 White Blood Count 13.0 TH/MM3 21.6 TH/MM3 Red Blood Count 3.32 MIL/MM3 3.67 MIL/MM3 Hemoglobin 10.7 GM/DL 12.1 GM/DL Hematocrit 33.0 % 36.8 % Mean Corpuscular Volume 99.3 FL 100.2 FL Mean Corpuscular Hemoglobin 32.2 PG 32.8 PG Mean Corpuscular Hemoglobin 32.4 % 32.7 % Concent Red Cell Distribution Width 14.3 % 14.7 % Platelet Count 319 TH/MM3 371 TH/MM3 Mean Platelet Volume 9.9 FL 10.0 FL Neutrophils (%) (Auto) 91.8 % Lymphocytes (%) (Auto) 3.4 % Monocytes (%) (Auto) 4.4 % Eosinophils (%) (Auto) 0.0 % Basophils (%) (Auto) 0.4 % Neutrophils # (Auto) 19.8 TH/MM3 Lymphocytes # (Auto) 0.7 TH/MM3 Monocytes # (Auto) 0.9 TH/MM3 Eosinophils # (Auto) 0.0 TH/MM3 Basophils # (Auto) 0.1 TH/MM3 CBC Comment DIFF FINAL Differential Comment Laboratory Tests Test 11/11/16 11/11/16 11/12/16 04:16 12:20 03:52 Sodium Level 153 MEQ/L 152 MEQ/L Potassium Level 4.6 MEQ/L 4.5 MEQ/L Chloride Level 113 MEQ/L 112 MEQ/L Carbon Dioxide Level 31.3 MEQ/L 32.5 MEQ/L Anion Gap 9 MEQ/L 8 MEQ/L Blood Urea Nitrogen 60 MG/DL 55 MG/DL Creatinine 1.65 MG/DL 1.50 MG/DL Estimat Glomerular Filtration 31 ML/MIN 34 ML/MIN Rate Random Glucose 220 MG/DL 281 MG/DL Calcium Level 8.5 MG/DL 8.7 MG/DL Phosphorus Level 3.1 MG/DL 3.5 MG/DL Magnesium Level 2.9 MG/DL 2.9 MG/DL Lactic Acid Level 2.3 mmol/L Total Bilirubin 0.5 MG/DL Aspartate Amino Transf 30 U/L (AST/SGOT) Alanine Aminotransferase 128 U/L (ALT/SGPT) Alkaline Phosphatase 96 U/L Total Protein 7.0 GM/DL Albumin 2.4 GM/DL PHYSICAL EXAMINATION GENERAL: No acute distress. HEENT: Unable to fully assess. No lesions on the face. no icterus. Buccal mucosa appears moist. NECK: No adenopathy or swelling. The patient has a neck collar in place. LUNGS: Basilar rhonchi bilateral, Good air movement. HEART: Regular S1 and S2. No audible murmurs. ABDOMEN: Decreased bowel sounds, soft, no palpable masses. EXTREMITIES: 1+ edema of the extremities. Pulses 2+, radial and dorsalis pedis. SKIN: No rash. NEUROLOGIC: Unable to fully assess. PSYCHIATRIC: Unable to fully assess. IMPRESSION 1. Fever, questionable etiology. 2. Acute respiratory failure. 3. Leukocytosis. ? due to PNA. WBC still elevated. 4. Sepsis on admission indicated by elevated heart rate, elevated temperature, elevated white blood cell count. Source unclear but likely pulmonary. 5. Abnormal chest x-ray with bilateral interstitial infiltrates suggesting possible pneumonia versus COPD. Also likely cause of the fever could be drug fever. RECOMMENDATIONS 1. Continue Azithromycin. 2. Continue fluconazole. 3. Continue vancomycin. 4. Monitor the temperature. 6. Monitor white blood cell count. D/W critical care physician Dr. Quintero. Roberto Phan MD Nov 12, 2016 11:23
[2016-11-12] MEDS: HIGH DOSE INSULIN NOVOLOG SUPPLEMENTAL SCALE SQ SCH ×3 (12:12→20:02)
[2016-11-12] MEDS: AZITHROMYCIN INJ 500 MG in SODIUM CHLOR 0.9% 250 ML INJ 250 ML IV SCH (12:12)
[2016-11-12] MEDS: FLUCONAZOLE 200 MG PREMIX BAG 100 ML IV SCH (13:13)
[2016-11-12] MEDS: PANTOPRAZOLE SODIUM 40 MG VIAL IV PUSH SCH (13:14)
[2016-11-12] MEDS ORDERED: PHARMACY ORDERED LAB XX ONE (13:45)
[2016-11-12] MEDS: VANCOMYCIN INJ 1,250 MG in SODIUM CHLOR 0.9% 250 ML INJ 250 ML IV SCH (14:59)
--- NOTE | 2016-11-12 17:44 | HHI.CCPN ---
Subjective Remarks/Hospital Course Patient is a 71-year-old female with history of pulmonary fibrosis, asthma, probable COPD on home oxygen who had a recent fall at home and sustained C7/ T1 fractures. She was evaluated by neurosurgery and conservatively managed and placed in a cervical collar. She was discharged home on 11/04/16. The pt developed inability to ambulate at home and also had urinary retention. Patient 's also noticed that she had been more confused. ER workup included a CT of the head which was negative, CT of the abdomen pelvis showed markedly distended bladder with mild to moderate hydronephrosis. Sanders catheter was inserted. Chest x-ray showed increasing bilateral infiltrates. Patient was admitted to the hospitalist service, on broad-spectrum antibiotics with Zosyn and vancomycin, breathing treatments. Neurology Dr. Xiong was also consulted Today was noted to have increasing shortness of breath today, tachypnea and hypoxia requiring a partial nonrebreather. Also noted to have A flutter with rapid ventricular response. Cardizem boluses 2 was given on Cardizem infusion was started. Because of her worsening respiratory failure patient was moved to the ICU. Critical care medicine consulted and I immediately evaluated the patient. She is in moderate distress on partial nonrebreather breathing 35-40/ m. Chest exam shows bilateral crackles and wheezes. I have added Solu-Medrol and scheduled breathing treatments and ordered BiPAP 10 over 5. I explained to the patient and the that patient may need endotracheal intubation and mechanical ventilation if she is not improving with BiPAP. 11/07 Patient is sedated with Diprivan and intubated. Afebrile. On Cardizem drip 5mg/hr, for MRI spine and CT thorax today. 11/08 Patient is sedated with Fentnayl and intubated. Afebrile. Renal function worse today with Cr: 1.65 from 1.15 11/09 Tmax 102.2. The patient's sputum culture grew preliminarily budding yeast with pseudohyphae. Diflucan initiated yesterday white count trending down. Lasix discontinued yesterday secondary to elevated creatinine level. 11/10 Afebrile. Able to wean oxygenation to FiO2 of 40% today. CPAP trials plan for today. The patient was noted to be hypernatremic free water flushes were added to her tube feedings. Creatinine slightly improved today. PT consulted Functional maintenance with specific requirements to be referred to neurosurgery for restrictions of any type of activities regarding functional maintenance. 11/11 Tmax 101.7. Patient continues to have persistent fevers, on antibiotic therapy, ID consulted,Dr Phan, appreciate recommendations. The patient has elevations in heart rate with activity/movement, received 2 doses of metoprolol with some diminution, from 160 to 90's yesterday. Overnight the patient's heart rate remained in the 120's. CPAP trials were initiated yesterday the patient was able to maintain the trial for approximately 4 hours. 11/12 Persistent fever last 24 hours, patient placed on a cooling blanket. Antibiotics adjusted per ID, Dr. Phan. Ultrasound Doppler obtained bilateral upper and lower extremities results superficial thrombus white distal cephalic vein. The patient was maintained on CPAP approximately 9 hours yesterday. Fentanyl infusion resumed today, patient complained of pain. Scheduled by mouth narcotics initiated. Objective Vital Signs Date Time Temp Pulse Resp B/P Pulse Ox O2 Delivery O2 Flow Rate FiO2 11/12/16 16:00 45 11/12/16 16:00 119 11/12/16 16:00 98.4 11 141/88 93 11/12/16 07:00 Mechanical Ventilator Intake and Output 11/11/16 11/11/16 11/12/16 08:00 16:00 00:00 Intake Total 607 ml 800 ml 792 ml Output Total 601.0 ml 850.0 ml 700.0 ml Balance 6.0 ml -50.0 ml 92.0 ml Result Diagram: 11/12/16 0352 11/12/16 0352 Imaging Last Impressions Chest X-Ray 11/12/16 0600 Signed Impressions: Service Date/Time: October 02:40 - CONCLUSION: No significant interval change. Roland Maier MD Upper Extremity Ultrasound 11/11/16 0000 Signed Impressions: Service Date/Time: Friday, November 11, 2016 21:51 - CONCLUSION: 1. No evidence of DVT. 2. Focal superficial thrombosis involving the distal right cephalic vein. Roland Maier MD Lower Extremity Ultrasound 11/11/16 0000 Signed Impressions: Service Date/Time: Friday, November 11, 2016 21:22 - CONCLUSION: Negative exam with no evidence of deep venous thrombosis. Rex Corcoran MD Liver Ultrasound 11/09/16 0000 Signed Impressions: Service Date/Time: Wednesday, November 09, 2016 08:03 - CONCLUSION: 1. No acute abnormality. 2. Prior cholecystectomy. Common bile duct is within the normal range in terms of size for patient status post cholecystectomy. 3. Dystrophic calcification involving the right lobe of the liver. Scott Mittal Jr., MD Thoracic Spine MRI 11/07/16 0000 Signed Impressions: Service Date/Time: Monday, November 07, 2016 10:23 - CONCLUSION: 1. There is a fracture of the T1 vertebral body and T5 vertebral body. No significant height loss is present and there is no retropulsion of any fracture fragment. No canal stenosis is present. 2. Please refer to today's chest CT examination report for description of the pulmonary findings. Jimmy Lara MD Renal Ultrasound 11/06/16 0000 Signed Impressions: Service Date/Time: Sunday, November 06, 2016 22:24 - CONCLUSION: Probable complicated cyst midpole left kidney measuring 2.0 cm. Otherwise negative exam. No evidence of hydronephrosis. Scott Cantor MD Chest CT 11/06/16 0000 Signed Impressions: Service Date/Time: Monday, November 07, 2016 10:50 - CONCLUSION: Severe diffuse geographic areas of groundglass attenuation bilaterally with trace bilateral pleural effusions. The pattern is nonspecific but can be seen with infection and ARDS among other etiologies. Jimmy Lara MD Head CT 11/04/16 2326 Signed Impressions: Service Date/Time: Friday, November 04, 2016 23:45 - CONCLUSION: No acute intracranial findings. Jimmy Felton MD Abdomen/Pelvis CT 11/04/16 0000 Signed Impressions: Service Date/Time: Friday, November 04, 2016 23:48 - CONCLUSION: Markedly dilated urinary bladder with mild-moderate bilateral hydronephrosis Jimmy Felton MD Last Impressions Chest X-Ray 11/12/16 0600 Signed Impressions: Service Date/Time: October 02:40 - CONCLUSION: No significant interval change. Roland Maier MD Upper Extremity Ultrasound 11/11/16 0000 Signed Impressions: Service Date/Time: Friday, November 11, 2016 21:51 - CONCLUSION: 1. No evidence of DVT. 2. Focal superficial thrombosis involving the distal right cephalic vein. Roland Maier MD Lower Extremity Ultrasound 11/11/16 0000 Signed Impressions: Service Date/Time: Friday, November 11, 2016 21:22 - CONCLUSION: Negative exam with no evidence of deep venous thrombosis. Rex Corcoran MD Liver Ultrasound 11/09/16 0000 Signed Impressions: Service Date/Time: Wednesday, November 09, 2016 08:03 - CONCLUSION: 1. No acute abnormality. 2. Prior cholecystectomy. Common bile duct is within the normal range in terms of size for patient status post cholecystectomy. 3. Dystrophic calcification involving the right lobe of the liver. Scott Mittal Jr., MD Thoracic Spine MRI 11/07/16 0000 Signed Impressions: Service Date/Time: Monday, November 07, 2016 10:23 - CONCLUSION: 1. There is a fracture of the T1 vertebral body and T5 vertebral body. No significant height loss is present and there is no retropulsion of any fracture fragment. No canal stenosis is present. 2. Please refer to today's chest CT examination report for description of the pulmonary findings. iJmmy Lara MD Renal Ultrasound 11/06/16 0000 Signed Impressions: Service Date/Time: Sunday, November 06, 2016 22:24 - CONCLUSION: Probable complicated cyst midpole left kidney measuring 2.0 cm. Otherwise negative exam. No evidence of hydronephrosis. Scott Cantor MD Chest CT 11/06/16 0000 Signed Impressions: Service Date/Time: Monday, November 07, 2016 10:50 - CONCLUSION: Severe diffuse geographic areas of groundglass attenuation bilaterally with trace bilateral pleural effusions. The pattern is nonspecific but can be seen with infection and ARDS among other etiologies. Jimmy Lara MD Head CT 11/04/16 2326 Signed Impressions: Service Date/Time: Friday, November 04, 2016 23:45 - CONCLUSION: No acute intracranial findings. Jimmy Felton MD Abdomen/Pelvis CT 11/04/16 0000 Signed Impressions: Service Date/Time: Friday, November 04, 2016 23:48 - CONCLUSION: Markedly dilated urinary bladder with mild-moderate bilateral hydronephrosis Jimmy Felton MD Last Impressions Liver Ultrasound 11/09/16 0000 Signed Impressions: Service Date/Time: Wednesday, November 09, 2016 08:03 - CONCLUSION: 1. No acute abnormality. 2. Prior cholecystectomy. Common bile duct is within the normal range in terms of size for patient status post cholecystectomy. 3. Dystrophic calcification involving the right lobe of the liver. Scott Mittal Jr., MD Chest X-Ray 11/09/16 0000 Signed Impressions: Service Date/Time: Wednesday, November 09, 2016 03:36 - CONCLUSION: Mild improvement in the bilateral interstitial infiltrates. Roland Maier MD Thoracic Spine MRI 11/07/16 0000 Signed Impressions: Service Date/Time: Monday, November 07, 2016 10:23 - CONCLUSION: 1. There is a fracture of the T1 vertebral body and T5 vertebral body. No significant height loss is present and there is no retropulsion of any fracture fragment. No canal stenosis is present. 2. Please refer to today's chest CT examination report for description of the pulmonary findings. Jimmy Lara MD Renal Ultrasound 11/06/16 0000 Signed Impressions: Service Date/Time: Sunday, November 06, 2016 22:24 - CONCLUSION: Probable complicated cyst midpole left kidney measuring 2.0 cm. Otherwise negative exam. No evidence of hydronephrosis. Scott Cantor MD Chest CT 11/06/16 0000 Signed Impressions: Service Date/Time: Monday, November 07, 2016 10:50 - CONCLUSION: Severe diffuse geographic areas of groundglass attenuation bilaterally with trace bilateral pleural effusions. The pattern is nonspecific but can be seen with infection and ARDS among other etiologies. Jimmy Lara MD Head CT 11/04/16 2326 Signed Impressions: Service Date/Time: Friday, November 04, 2016 23:45 - CONCLUSION: No acute intracranial findings. Jimmy Felton MD Abdomen/Pelvis CT 11/04/16 0000 Signed Impressions: Service Date/Time: Friday, November 04, 2016 23:48 - CONCLUSION: Markedly dilated urinary bladder with mild-moderate bilateral hydronephrosis Jimmy Felton MD Last Impressions Chest X-Ray 11/07/16 0600 Signed Impressions: Service Date/Time: Monday, November 07, 2016 05:03 - CONCLUSION: Persistent and stable bilateral air space opacities in the medial lungs. Scott Cantor MD Thoracic Spine MRI 11/07/16 0000 Signed Impressions: Service Date/Time: Monday, November 07, 2016 10:23 - CONCLUSION: 1. There is a fracture of the T1 vertebral body and T5 vertebral body. No significant height loss is present and there is no retropulsion of any fracture fragment. No canal stenosis is present. 2. Please refer to today's chest CT examination report for description of the pulmonary findings. Jimmy Lara MD Renal Ultrasound 11/06/16 0000 Signed Impressions: Service Date/Time: Sunday, November 06, 2016 22:24 - CONCLUSION: Probable complicated cyst midpole left kidney measuring 2.0 cm. Otherwise negative exam. No evidence of hydronephrosis. Scott Cantor MD Chest CT 11/06/16 0000 Signed Impressions: Service Date/Time: Monday, November 07, 2016 10:50 - CONCLUSION: Severe diffuse geographic areas of groundglass attenuation bilaterally with trace bilateral pleural effusions. The pattern is nonspecific but can be seen with infection and ARDS among other etiologies. Jimmy Lara MD Head CT 11/04/16 2326 Signed Impressions: Service Date/Time: Friday, November 04, 2016 23:45 - CONCLUSION: No acute intracranial findings. Jimmy Felton MD Abdomen/Pelvis CT 11/04/16 0000 Signed Impressions: Service Date/Time: Friday, November 04, 2016 23:48 - CONCLUSION: Markedly dilated urinary bladder with mild-moderate bilateral hydronephrosis Jimmy Felton MD Objective Remarks GENERAL: Patient is 71 yo awake and alert, trying to sit up and get out of bed. Fentanyl infusion at 100 mcgs. Patient is anxious complaining of pain. SKIN: Warm and dry. HEAD: Normocephalic. EYES: No scleral icterus. No injection or drainage. NECK: Supple, trachea midline. No JVD or lymphadenopathy. [place] J C-collar intact CARDIOVASCULAR: Regular rate and rhythm without murmurs, gallops, or rubs. RESPIRATORY: Breath sounds equal bilaterally. Mechanically ventilated GASTROINTESTINAL: Abdomen soft, non-tender, nondistended. OGT tube feeds infusing MUSCULOSKELETAL: No cyanosis, or edema. Neuro: Awake GCS 11T , RASS-2 Urinary Catheter: Yes Sanders insert reason: Measure Accurate Output Vascular Central Line Catheter: No A/P Assessment and Plan NEURO: Acute metabolic encephalopathy C7-T1 fracture (T1 vertebral body comminuted fracture, bilateral C7 pedicle fracture extending to the right facet. Remote history of anterior C6-C7 and C4-C5 fusion with plate placement. Pain -Pain control -multimodal pain therapy-Roxicodone every 6 hours, tramadol every 6 hours, continue low-dose fentanyl infusion -Fentanyl infusion at 100 mcgs for sedation and analgesia , maintaining RASS - 2. GCS 11T, following commands -CT head negative for acute findings. - 11/07 MRI spine:Fracture of the T1 vertebral body and T5 vertebral body. NSG is following Dr. Bowden RESP: Acute hypoxemic respiratory failure Pulmonary fibrosis/COPD exacerbation Probable HCAP -Continue with vent support keep sat >92%. On ACV RR 16, TV 450, PEEP5, FIO2.40% -Bronchodilators, Solumederol 60mg Q6 -ICU vent bundle, pulm is following-Dr. Escalera -CT chest showed diffuse GGO b/l -Sputum culture11/08 -budding yeast with pseudohyphae -Sputum Culture 11/09-Rare gram negative robin - Continue CPAP trials CVS A Flutter with RVR Fluid overload -Monitor HR and BP keep MAP>65mmHg. On Cardizem 60mg QID, Metoprolol 12.5mg BID -Echo showed EF 45-50%, diffuse hypokinesis, cardiology is following, Dr. Barrera -Troponin negative -Esmolol infusion for elevated heart rate, discussed with Dr. Barrera GI: Constipation-resolved -Elevated LFT's, check US liver-no acute abnormality .dystrophic calcification right lobe, common bowel duct within normal limits - IV Protonix for GI prophylaxis -On TF-Glucerna 1.5 @45ml/hr @ goal, no residual -Patient on Colace, senna, MiraLAX and Dulcolax suppository PRN. Lactulose discontinued. : Hydronephrosis from urinary retention/obstruction Hypernatremia -Monitor renal function , I/O's, -Increase free water flushes to 300 cc every 6 -Creatinine 1.6 stable -Renal US: Probable complicated cyst midpole left kidney measuring 2.0 cm. No evidence of hydronephrosis. ID: Probable healthcare associated pneumonia Probable sepsis Persistent fevers -Acetaminophen 650mg for temp greater than 101.0 -Sputum culture11/08 -budding yeast with pseudohyphae -Sputum Culture 11/09-Rare gram negative robin -Blood cultures11/08- NGTD -ID on board Dr. Phan, management of antibiotic regimen -US11/12 bilateral upper and lower extremities-superficial nonocclusive thrombus right cephalic vein HEME: -Monitor CBC, CMP ENDO: Hypokalemia Hyperglycemia of critical illness -Electrolyte replacement per protocol. Sliding scale insulin if needed -On Thyroid 90mg daily, TSH: 0.123 -Glucose monitoring every 6 hours per ICU protocol -Sliding-scale insulin MSK: -PT-functional maintenance daily -Apply Multi-Podus boots PROPH: -Bilateral lower extremity SCDs. Subcutaneous heparin for DVT prophylaxis. IV Protonix for GI prophylaxis LINES: -Utilize peripheral IVs, central line if needed This patient remains critically ill with one or more organ systems which are or may become a threat to life. I have spent in excess of 55 minutes discontinuously in the care and management of this patient. This time is exclusive of procedures, and includes, but is not limited to, evaluation of the patient, review of the medical record, discussions with family, consultants, nursing staff, or respiratory therapy, and documentation in the medical record. Discussed with CASHIER OR CHECKER STOCK CLERK at bedside and Dr. Rodríguez(). Physician Megha Pastrana MD Nov 12, 2016 17:44
[2016-11-12] MEDS: ACETAMINOPHEN/HYDROcodone 325 MG/10 MG TAB PO SCH ×2 (18:43→23:28)
[2016-11-12] MEDS: MONTELUKAST SODIUM 10 MG TAB PO SCH (20:01)
[2016-11-13] VITALS (17 sets, daily range): BP systolic 122–165; BP diastolic 79–110; PULSE 72–141; RESP 16–22; TEMP 97.5–99.3; O2SAT 93–100
[2016-11-13] MEDS: RESP: ALBUTEROL 2.5 MG/IPRATROPIUM 0.5 MG NEB (SCH) NEB ×6 (04:00→23:14)
[2016-11-13 04:12] LABS: AUTOMATED NEUTROPHIL # 18.4 TH/MM3 (1.8-7.7); BASOPHIL % 0.2 % (0.0-2.0); HEMATOCRIT 35.4 % (35.0-46.0); LYMPH % 3.4 % (9.0-44.0); LYMPHOCYTE # 0.7 TH/MM3 (1.0-4.8); MEAN CELL VOLUME 99.8 FL (80.0-100.0); MEAN CORPUSCULAR HEMOGLOBIN 32.6 PG (27.0-34.0); MEAN CORPUSCULAR HGB CONC 32.7 % (32.0-36.0); MONO % 2.3 % (0.0-8.0); NEUT % 94.1 % (16.0-70.0); PLATELET COUNT 321 TH/MM3 (150-450); RED BLOOD COUNT 3.55 MIL/MM3 (4.00-5.30); RED CELL DISTRIBUTION WIDTH 14.4 % (11.6-17.2); WHITE BLOOD COUNT 19.6 TH/MM3 (4.0-11.0)
[2016-11-13 04:28] LABS: HEMO FLAGS AUTO DIFF
[2016-11-13 04:32] LABS: MAGNESIUM 2.6 MG/DL (1.5-2.5); POTASSIUM 4.8 MEQ/L (3.5-5.1)
[2016-11-13 05:34] LABS: BLOOD GAS BASE EXCESS 5.9 mmol/L (-2-2); BLOOD GAS CARBOXYHEMOGLOBIN 1.1 % (0-4); BLOOD GAS HCO3 31 mmol/L (22-26); BLOOD GAS METHEMOGLOBIN 1.1 % (0-2); BLOOD GAS O2 HGB SATURATION 94 % (90-100); BLOOD GAS OXYGEN CONTENT 15.3 Vol % (12.0-20.0); BLOOD GAS PCO2 50 mmHg (38-42); BLOOD GAS PO2 90 mmHg (61-120); BLOOD GAS TOTAL HGB 11.6 G/DL (12.0-16.0); CRITICAL VALUE NO; DRAW SITE RT BRACHIAL; FIO2 55 %; NUMBER OF ARTERIAL PUNCTURES 1; OXYGEN DEVICE VENTILATOR; STAT NO; TEMP CORR TO 98.6; VENT SETTINGS PRVC/AC
[2016-11-13] MEDS: methylPREDNISolone SOD SUCC 125 MG/2 ML VIAL IV PUSH SCH ×3 (05:46→21:35)
[2016-11-13] MEDS: HEPARIN SODIUM - SQ 10,000 UNITS/ML VIAL SQ SCH ×3 (05:46→21:34)
[2016-11-13] MEDS: DILTIAZEM HCL 60 MG TAB PO SCH ×3 (05:47→17:53)
[2016-11-13] MEDS: THYROID 30 MG TAB PO SCH (05:47)
[2016-11-13] MEDS: FREE WATER G-TUBE SCH ×3 (05:47→17:53)
[2016-11-13] MEDS: ACETAMINOPHEN/HYDROcodone 325 MG/10 MG TAB PO SCH ×2 (05:48→11:22)
[2016-11-13 06:38] LABS: BANDS 9 % (0-6); METAMYELOCYTES 1 % (0-1); NEUTROPHIL # MANUAL DIFF 18.8 TH/MM3 (1.8-7.7); PLATELET ESTIMATE SMEAR NORMAL (NORMAL); POLYS (SEG NEUTROPHILS) 86 % (16-70); SCAN/DIFF FINAL DIFF MANUAL; WBC DIFF SAMPLE 100
[2016-11-13 06:39] LABS: PLATELET MORPHOLOGY NORMAL (NORMAL)
[2016-11-13] MEDS: HIGH DOSE INSULIN NOVOLOG SUPPLEMENTAL SCALE SQ SCH ×3 (06:52→15:54)
[2016-11-13] MEDS: RESP: BUDESONIDE 0.5 MG/2 ML NEB NEB SCH ×2 (07:44→20:08)
[2016-11-13] MEDS: LEVOCETIRIZINE 5 MG PO SCH (08:03)
[2016-11-13] MEDS: TIOTROPIUM BROMIDE 18 MCG INH INH SCH (08:03)
[2016-11-13] MEDS: METOPROLOL TARTRATE 25 MG TAB PO SCH ×2 (08:03→21:35)
[2016-11-13] MEDS: buPROPion HCL 100 MG TAB PO SCH ×2 (08:03→21:35)
[2016-11-13] MEDS: DOCUSATE SODIUM 100 MG CAP PO SCH ×2 (08:03→21:00)
[2016-11-13] MEDS: SODIUM CHLORIDE 0.9% FLUSH 5 ML FLUSH FLUSH SCH ×2 (08:04→21:00)
[2016-11-13] MEDS: SENNOSIDES 8.6 MG TAB PO SCH (08:04)
[2016-11-13] MEDS: POLYETHYLENE GLYCOL 17 GM PKG PO SCH ×2 (08:04→21:35)
[2016-11-13] MEDS: CHLORHEXIDINE 0.12% (ORAL KIT) 15 ML CUP MT SCH ×2 (08:04→21:35)
[2016-11-13] MEDS ORDERED: VANCOMYCIN 1,500 MG/NS 500 ML IV SCH ×2 (10:00)
[2016-11-13] MEDS: VANCOMYCIN INJ 1,750 MG in SODIUM CHLORID 0.9% 500 ML INJ 500 ML IV SCH (10:23)
[2016-11-13] MEDS: MORPHINE SULFATE 4 MG/ML INJ IV PRN ×2 (11:57→21:45)
[2016-11-13] MEDS: FLUCONAZOLE 200 MG PREMIX BAG 100 ML IV SCH (12:50)
[2016-11-13] MEDS: AZITHROMYCIN INJ 500 MG in SODIUM CHLOR 0.9% 250 ML INJ 250 ML IV SCH (14:33)
[2016-11-13] MEDS: PANTOPRAZOLE SODIUM 40 MG VIAL IV PUSH SCH (14:33)
[2016-11-13] MEDS: fentaNYL DRIP 250 ML IV SCH (14:33)
--- NOTE | 2016-11-13 14:48 | HHI.CCPN ---
Subjective Remarks/Hospital Course Patient is a 71-year-old female with history of pulmonary fibrosis, asthma, probable COPD on home oxygen who had a recent fall at home and sustained C7/ T1 fractures. She was evaluated by neurosurgery and conservatively managed and placed in a cervical collar. She was discharged home on 11/04/16. The pt developed inability to ambulate at home and also had urinary retention. Patient 's also noticed that she had been more confused. ER workup included a CT of the head which was negative, CT of the abdomen pelvis showed markedly distended bladder with mild to moderate hydronephrosis. Sanders catheter was inserted. Chest x-ray showed increasing bilateral infiltrates. Patient was admitted to the hospitalist service, on broad-spectrum antibiotics with Zosyn and vancomycin, breathing treatments. Neurology Dr. Xiong was also consulted Today was noted to have increasing shortness of breath today, tachypnea and hypoxia requiring a partial nonrebreather. Also noted to have A flutter with rapid ventricular response. Cardizem boluses 2 was given on Cardizem infusion was started. Because of her worsening respiratory failure patient was moved to the ICU. Critical care medicine consulted and I immediately evaluated the patient. She is in moderate distress on partial nonrebreather breathing 35-40/ m. Chest exam shows bilateral crackles and wheezes. I have added Solu-Medrol and scheduled breathing treatments and ordered BiPAP 10 over 5. I explained to the patient and the that patient may need endotracheal intubation and mechanical ventilation if she is not improving with BiPAP. 11/07 Patient is sedated with Diprivan and intubated. Afebrile. On Cardizem drip 5mg/hr, for MRI spine and CT thorax today. 11/08 Patient is sedated with Fentnayl and intubated. Afebrile. Renal function worse today with Cr: 1.65 from 1.15 11/09 Tmax 102.2. The patient's sputum culture grew preliminarily budding yeast with pseudohyphae. Diflucan initiated yesterday white count trending down. Lasix discontinued yesterday secondary to elevated creatinine level. 11/10 Afebrile. Able to wean oxygenation to FiO2 of 40% today. CPAP trials plan for today. The patient was noted to be hypernatremic free water flushes were added to her tube feedings. Creatinine slightly improved today. PT consulted Functional maintenance with specific requirements to be referred to neurosurgery for restrictions of any type of activities regarding functional maintenance. 11/11 Tmax 101.7. Patient continues to have persistent fevers, on antibiotic therapy, ID consulted,Dr Phan, appreciate recommendations. The patient has elevations in heart rate with activity/movement, received 2 doses of metoprolol with some diminution, from 160 to 90's yesterday. Overnight the patient's heart rate remained in the 120's. CPAP trials were initiated yesterday the patient was able to maintain the trial for approximately 4 hours. 11/12 Persistent fever last 24 hours, patient placed on a cooling blanket. Antibiotics adjusted per ID, Dr. Phan. Ultrasound Doppler obtained bilateral upper and lower extremities results superficial thrombus white distal cephalic vein. The patient was maintained on CPAP approximately 9 hours yesterday. Fentanyl infusion resumed today, patient complained of pain. Scheduled by mouth narcotics initiated. 11/13 T Max 99.3. The patient tolerated CPAP trials approximately 11 hours yesterday. Pain still not well controlled, the patient was placed on scheduled pain medications, will add tramadol, patient's home medication to regimen. Objective Vital Signs Date Time Temp Pulse Resp B/P Pulse Ox O2 Delivery O2 Flow Rate FiO2 11/13/16 11:19 100 55 11/13/16 10:00 128 11/13/16 08:00 97.9 21 145/97 11/13/16 07:00 Mechanical Ventilator Intake and Output 11/12/16 11/12/16 11/12/16 07:59 15:59 23:59 Intake Total 1449 ml 1034 ml 1072 ml Output Total 675 ml 600 ml 725 ml Balance 774 ml 434 ml 347 ml Result Diagram: 11/13/16 0355 11/13/16 0355 Other Results Laboratory Tests Test 11/13/16 05:22 Blood Gas Puncture Site RT BRACHIAL Blood Gas Patient Temperature 98.6 Blood Gas HCO3 31 mmol/L (22-26) Blood Gas Base Excess 5.9 mmol/L (-2-2) Blood Gas Oxygen Saturation 94 % (90-100) Arterial Blood pH 7.41 (7.380-7.420) Arterial Blood Partial 50 mmHg (38-42) Pressure CO2 Arterial Blood Partial 90 mmHg Pressure O2 (61-120) Arterial Blood Oxygen Content 15.3 Vol % (12.0-20.0) Arterial Blood 1.1 % (0-4) Carboxyhemoglobin Arterial Blood Methemoglobin 1.1 % (0-2) Blood Gas Hemoglobin 11.6 G/DL (12.0-16.0) Oxygen Delivery Device VENTILATOR Blood Gas Ventilator Setting PRVC/AC Blood Gas Inspired Oxygen 55 % Imaging Last Impressions Chest X-Ray 11/12/16 0600 Signed Impressions: Service Date/Time: October 02:40 - CONCLUSION: No significant interval change. Roland Maier MD Upper Extremity Ultrasound 11/11/16 0000 Signed Impressions: Service Date/Time: Friday, November 11, 2016 21:51 - CONCLUSION: 1. No evidence of DVT. 2. Focal superficial thrombosis involving the distal right cephalic vein. Roland Maier MD Lower Extremity Ultrasound 11/11/16 0000 Signed Impressions: Service Date/Time: Friday, November 11, 2016 21:22 - CONCLUSION: Negative exam with no evidence of deep venous thrombosis. Rex Corcoran MD Liver Ultrasound 11/09/16 0000 Signed Impressions: Service Date/Time: Wednesday, November 09, 2016 08:03 - CONCLUSION: 1. No acute abnormality. 2. Prior cholecystectomy. Common bile duct is within the normal range in terms of size for patient status post cholecystectomy. 3. Dystrophic calcification involving the right lobe of the liver. Scott Mittal Jr., MD Thoracic Spine MRI 11/07/16 0000 Signed Impressions: Service Date/Time: Monday, November 07, 2016 10:23 - CONCLUSION: 1. There is a fracture of the T1 vertebral body and T5 vertebral body. No significant height loss is present and there is no retropulsion of any fracture fragment. No canal stenosis is present. 2. Please refer to today's chest CT examination report for description of the pulmonary findings. Jimmy Lara MD Renal Ultrasound 11/06/16 0000 Signed Impressions: Service Date/Time: Sunday, November 06, 2016 22:24 - CONCLUSION: Probable complicated cyst midpole left kidney measuring 2.0 cm. Otherwise negative exam. No evidence of hydronephrosis. Scott Cantor MD Chest CT 11/06/16 0000 Signed Impressions: Service Date/Time: Monday, November 07, 2016 10:50 - CONCLUSION: Severe diffuse geographic areas of groundglass attenuation bilaterally with trace bilateral pleural effusions. The pattern is nonspecific but can be seen with infection and ARDS among other etiologies. Jimmy Lara MD Head CT 11/04/166 Signed Impressions: Service Date/Time: Friday, November 04, 2016 23:45 - CONCLUSION: No acute intracranial findings. Jimmy Felton MD Abdomen/Pelvis CT 11/04/16 0000 Signed Impressions: Service Date/Time: Friday, November 04, 2016 23:48 - CONCLUSION: Markedly dilated urinary bladder with mild-moderate bilateral hydronephrosis Jimmy Felton MD Last Impressions Chest X-Ray 11/12/16 0600 Signed Impressions: Service Date/Time: October 02:40 - CONCLUSION: No significant interval change. Roland Maier MD Upper Extremity Ultrasound 11/11/16 0000 Signed Impressions: Service Date/Time: Friday, November 11, 2016 21:51 - CONCLUSION: 1. No evidence of DVT. 2. Focal superficial thrombosis involving the distal right cephalic vein. Roland Maier MD Lower Extremity Ultrasound 11/11/16 0000 Signed Impressions: Service Date/Time: Friday, November 11, 2016 21:22 - CONCLUSION: Negative exam with no evidence of deep venous thrombosis. Rex Corcoran MD Liver Ultrasound 11/09/16 0000 Signed Impressions: Service Date/Time: Wednesday, November 09, 2016 08:03 - CONCLUSION: 1. No acute abnormality. 2. Prior cholecystectomy. Common bile duct is within the normal range in terms of size for patient status post cholecystectomy. 3. Dystrophic calcification involving the right lobe of the liver. Scott Mittal Jr., MD Thoracic Spine MRI 11/07/16 0000 Signed Impressions: Service Date/Time: Monday, November 07, 2016 10:23 - CONCLUSION: 1. There is a fracture of the T1 vertebral body and T5 vertebral body. No significant height loss is present and there is no retropulsion of any fracture fragment. No canal stenosis is present. 2. Please refer to today's chest CT examination report for description of the pulmonary findings. Jimmy Lara MD Renal Ultrasound 11/06/16 0000 Signed Impressions: Service Date/Time: Sunday, November 06, 2016 22:24 - CONCLUSION: Probable complicated cyst midpole left kidney measuring 2.0 cm. Otherwise negative exam. No evidence of hydronephrosis. Scott Cantor MD Chest CT 11/06/16 0000 Signed Impressions: Service Date/Time: Monday, November 07, 2016 10:50 - CONCLUSION: Severe diffuse geographic areas of groundglass attenuation bilaterally with trace bilateral pleural effusions. The pattern is nonspecific but can be seen with infection and ARDS among other etiologies. Jimmy Lara MD Head CT 11/04/16 2326 Signed Impressions: Service Date/Time: Friday, November 04, 2016 23:45 - CONCLUSION: No acute intracranial findings. Jimmy Felton MD Abdomen/Pelvis CT 11/04/16 0000 Signed Impressions: Service Date/Time: Friday, November 04, 2016 23:48 - CONCLUSION: Markedly dilated urinary bladder with mild-moderate bilateral hydronephrosis Jimmy Felton MD Last Impressions Liver Ultrasound 11/09/16 0000 Signed Impressions: Service Date/Time: Wednesday, November 09, 2016 08:03 - CONCLUSION: 1. No acute abnormality. 2. Prior cholecystectomy. Common bile duct is within the normal range in terms of size for patient status post cholecystectomy. 3. Dystrophic calcification involving the right lobe of the liver. Scott Mittal Jr., MD Chest X-Ray 11/09/16 0000 Signed Impressions: Service Date/Time: Wednesday, November 09, 2016 03:36 - CONCLUSION: Mild improvement in the bilateral interstitial infiltrates. Roland Maier MD Thoracic Spine MRI 11/07/16 0000 Signed Impressions: Service Date/Time: Monday, November 07, 2016 10:23 - CONCLUSION: 1. There is a fracture of the T1 vertebral body and T5 vertebral body. No significant height loss is present and there is no retropulsion of any fracture fragment. No canal stenosis is present. 2. Please refer to today's chest CT examination report for description of the pulmonary findings. Jimmy Lara MD Renal Ultrasound 11/06/16 0000 Signed Impressions: Service Date/Time: Sunday, November 06, 2016 22:24 - CONCLUSION: Probable complicated cyst midpole left kidney measuring 2.0 cm. Otherwise negative exam. No evidence of hydronephrosis. Scott Cantor MD Chest CT 11/06/16 0000 Signed Impressions: Service Date/Time: Monday, November 07, 2016 10:50 - CONCLUSION: Severe diffuse geographic areas of groundglass attenuation bilaterally with trace bilateral pleural effusions. The pattern is nonspecific but can be seen with infection and ARDS among other etiologies. Jimmy Lara MD Head CT 11/04/166 Signed Impressions: Service Date/Time: Friday, November 04, 2016 23:45 - CONCLUSION: No acute intracranial findings. Jimmy Felton MD Abdomen/Pelvis CT 11/04/16 0000 Signed Impressions: Service Date/Time: Friday, November 04, 2016 23:48 - CONCLUSION: Markedly dilated urinary bladder with mild-moderate bilateral hydronephrosis Jimmy Felton MD Last Impressions Chest X-Ray 11/07/16 0600 Signed Impressions: Service Date/Time: Monday, November 07, 2016 05:03 - CONCLUSION: Persistent and stable bilateral air space opacities in the medial lungs. Scott Cantor MD Thoracic Spine MRI 11/07/16 0000 Signed Impressions: Service Date/Time: Monday, November 07, 2016 10:23 - CONCLUSION: 1. There is a fracture of the T1 vertebral body and T5 vertebral body. No significant height loss is present and there is no retropulsion of any fracture fragment. No canal stenosis is present. 2. Please refer to today's chest CT examination report for description of the pulmonary findings. Jimmy Lara MD Renal Ultrasound 11/06/16 0000 Signed Impressions: Service Date/Time: Sunday, November 06, 2016 22:24 - CONCLUSION: Probable complicated cyst midpole left kidney measuring 2.0 cm. Otherwise negative exam. No evidence of hydronephrosis. Scott Cantor MD Chest CT 11/06/16 0000 Signed Impressions: Service Date/Time: Monday, November 07, 2016 10:50 - CONCLUSION: Severe diffuse geographic areas of groundglass attenuation bilaterally with trace bilateral pleural effusions. The pattern is nonspecific but can be seen with infection and ARDS among other etiologies. Jimmy Lara MD Head CT 11/04/16 2326 Signed Impressions: Service Date/Time: Friday, November 04, 2016 23:45 - CONCLUSION: No acute intracranial findings. Jimmy Felton MD Abdomen/Pelvis CT 11/04/16 0000 Signed Impressions: Service Date/Time: Friday, November 04, 2016 23:48 - CONCLUSION: Markedly dilated urinary bladder with mild-moderate bilateral hydronephrosis Jimmy Felton MD Objective Remarks GENERAL: Patient is 71 yo sedated and intubated, anxious, nodding yes to having pain, attempting to sit up in bed. SKIN: Warm and dry. HEAD: Normocephalic. EYES: No scleral icterus. No injection or drainage.EOMI NECK: Supple, trachea midline. No JVD or lymphadenopathy. [place] J c-collar intact CARDIOVASCULAR: Regular rate and rhythm without murmurs, gallops, or rubs. RESPIRATORY: Breath sounds equal bilaterally. Mechanically ventilated GASTROINTESTINAL: Abdomen soft, non-tender, nondistended. OGT tube feeds infusing. MUSCULOSKELETAL: No cyanosis, or edema. Neuro: Awake GCS 11T , RASS-0 Urinary Catheter: Yes Sanders insert reason: Measure Accurate Output Vascular Central Line Catheter: No A/P Assessment and Plan NEURO: Acute metabolic encephalopathy-resolved C7-T1 fracture (T1 vertebral body comminuted fracture, bilateral C7 pedicle fracture extending to the right facet. Remote history of anterior C6-C7 and C4-C5 fusion with plate placement. Pain -Pain control -will begin scheduled PO narcotics,Roxicodone, Tramadol added -Fentanyl infusion at 100 mcgs for sedation and analgesia , maintaining RASS - 2. GCS 11T, following commands -CT head negative for acute findings. - 11/07 MRI spine:Fracture of the T1 vertebral body and T5 vertebral body. NSG is following Dr. Bowden RESP: Acute hypoxemic respiratory failure Pulmonary fibrosis/COPD exacerbation Probable HCAP -Continue with vent support keep sat >92%. On ACV RR 16, TV 450, PEEP5, FIO2.40% -Bronchodilators, Solumederol 60mg Q6 -ICU vent bundle, pulm is following-Dr. Escalera -CT chest showed diffuse GGO b/l -Sputum culture11/08 -budding yeast with pseudohyphae -Sputum Culture 11/09-Rare gram negative robin - Continue CPAP trials CVS A Flutter with RVR Fluid overload -Monitor HR and BP keep MAP>65mmHg. On Cardizem 60mg QID, Metoprolol 12.5mg BID -Echo showed EF 45-50%, diffuse hypokinesis, cardiology is following, Dr. Barrera -Troponin negative -Esmolol infusion for heart rate elevation, discussed with Dr. Barrera GI: Constipation-resolved -Elevated LFT's, check US liver-no acute abnormality .dystrophic calcification right lobe, common bowel duct within normal limits - IV Protonix for GI prophylaxis -On TF-Glucerna 1.5 @45ml/hr @ goal, no residual -Patient on Colace, senna, MiraLAX and Dulcolax suppository PRN. Laculose discontinued : Hydronephrosis from urinary retention/obstruction Hypernatremia -Monitor renal function , I/O's, -Increase free water flushes to 300 cc every 6hr -Creatinine 1.6 stable -Renal US: Probable complicated cyst midpole left kidney measuring 2.0 cm. No evidence of hydronephrosis. ID: Probable healthcare associated pneumonia Probable sepsis Persistent fevers -Acetaminophen 650mg for temp greater than 101.0 -Sputum culture11/08 -budding yeast with pseudohyphae -Sputum Culture 11/09-Rare gram negative robin -Blood cultures11/08- NGTD -ID on board Dr. Phan, antibiotic regimen -US B/L upper and lower extremities, superficial right cephalic nonocclusive thrombus HEME: -Monitor CBC, CMP ENDO: Hypokalemia Hyperglycemia of critical illness -Electrolyte replacement per protocol. Sliding scale insulin if needed -On Thyroid 90mg daily, TSH: 0.123 -Glucose monitoring every 6 hours per ICU protocol -Sliding-scale insulin MSK: -PT-functional maintenance daily -Apply Multi-Podus boots PROPH: -Bilateral lower extremity SCDs. Subcutaneous heparin for DVT prophylaxis. IV Protonix for GI prophylaxis LINES: -Utilize peripheral IVs, central line if needed This patient remains critically ill with one or more organ systems which are or may become a threat to life. I have spent in excess of 55 minutes discontinuously in the care and management of this patient. This time is exclusive of procedures, and includes, but is not limited to, evaluation of the patient, review of the medical record, discussions with family, consultants, nursing staff, or respiratory therapy, and documentation in the medical record. Discussed with CUSHION BUILDER at bedside and Dr. Rodríguez(). Physician Megha Pastrana MD Nov 13, 2016 14:48
--- NOTE | 2016-11-13 15:07 | HHI.CCPN ---
Subjective Remarks/Hospital Course Patient is a 71-year-old female with history of pulmonary fibrosis, asthma, probable COPD on home oxygen who had a recent fall at home and sustained C7/ T1 fractures. She was evaluated by neurosurgery and conservatively managed and placed in a cervical collar. She was discharged home on 11/04/16. The pt developed inability to ambulate at home and also had urinary retention. Patient 's also noticed that she had been more confused. ER workup included a CT of the head which was negative, CT of the abdomen pelvis showed markedly distended bladder with mild to moderate hydronephrosis. Sanders catheter was inserted. Chest x-ray showed increasing bilateral infiltrates. Patient was admitted to the hospitalist service, on broad-spectrum antibiotics with Zosyn and vancomycin, breathing treatments. Neurology Dr. Xiong was also consulted Today was noted to have increasing shortness of breath today, tachypnea and hypoxia requiring a partial nonrebreather. Also noted to have A flutter with rapid ventricular response. Cardizem boluses 2 was given on Cardizem infusion was started. Because of her worsening respiratory failure patient was moved to the ICU. Critical care medicine consulted and I immediately evaluated the patient. She is in moderate distress on partial nonrebreather breathing 35-40/ m. Chest exam shows bilateral crackles and wheezes. I have added Solu-Medrol and scheduled breathing treatments and ordered BiPAP 10 over 5. I explained to the patient and the that patient may need endotracheal intubation and mechanical ventilation if she is not improving with BiPAP. 11/07 Patient is sedated with Diprivan and intubated. Afebrile. On Cardizem drip 5mg/hr, for MRI spine and CT thorax today. 11/08 Patient is sedated with Fentnayl and intubated. Afebrile. Renal function worse today with Cr: 1.65 from 1.15 11/09 Tmax 102.2. The patient's sputum culture grew preliminarily budding yeast with pseudohyphae. Diflucan initiated yesterday white count trending down. Lasix discontinued yesterday secondary to elevated creatinine level. 11/10 Afebrile. Able to wean oxygenation to FiO2 of 40% today. CPAP trials plan for today. The patient was noted to be hypernatremic free water flushes were added to her tube feedings. Creatinine slightly improved today. PT consulted Functional maintenance with specific requirements to be referred to neurosurgery for restrictions of any type of activities regarding functional maintenance. 11/11 Tmax 101.7. Patient continues to have persistent fevers, on antibiotic therapy, ID consulted,Dr Phan, appreciate recommendations. The patient has elevations in heart rate with activity/movement, received 2 doses of metoprolol with some diminution, from 160 to 90's yesterday. Overnight the patient's heart rate remained in the 120's. CPAP trials were initiated yesterday the patient was able to maintain the trial for approximately 4 hours. 11/12 Persistent fever last 24 hours, patient placed on a cooling blanket. Antibiotics adjusted per ID, Dr. Phan. Ultrasound Doppler obtained bilateral upper and lower extremities results superficial thrombus white distal cephalic vein. The patient was maintained on CPAP approximately 9 hours yesterday. Fentanyl infusion resumed today, patient complained of pain. Scheduled by mouth narcotics initiated. 11/13 CPAP trials lasted 11 hours. Patient continues to have fevers on a cooling blanket, Dr. Phan managing antibiotic regimen. Patient can continuously complain of pain, scheduled pain meds multimodal therapy approach initiated. Objective Vital Signs Date Time Temp Pulse Resp B/P Pulse Ox O2 Delivery O2 Flow Rate FiO2 11/13/16 11:19 100 55 11/13/16 10:00 128 11/13/16 08:00 97.9 21 145/97 11/13/16 07:00 Mechanical Ventilator Intake and Output 11/12/16 11/12/16 11/13/16 08:00 16:00 00:00 Intake Total 1449 ml 1034 ml 1072 ml Output Total 675.0 ml 600.0 ml 725.0 ml Balance 774.0 ml 434.0 ml 347.0 ml Result Diagram: 11/13/16 0355 11/13/16 0355 Other Results Laboratory Tests Test 11/13/16 05:22 Blood Gas Puncture Site RT BRACHIAL Blood Gas Patient Temperature 98.6 Blood Gas HCO3 31 mmol/L (22-26) Blood Gas Base Excess 5.9 mmol/L (-2-2) Blood Gas Oxygen Saturation 94 % (90-100) Arterial Blood pH 7.41 (7.380-7.420) Arterial Blood Partial 50 mmHg (38-42) Pressure CO2 Arterial Blood Partial 90 mmHg Pressure O2 (61-120) Arterial Blood Oxygen Content 15.3 Vol % (12.0-20.0) Arterial Blood 1.1 % (0-4) Carboxyhemoglobin Arterial Blood Methemoglobin 1.1 % (0-2) Blood Gas Hemoglobin 11.6 G/DL (12.0-16.0) Oxygen Delivery Device VENTILATOR Blood Gas Ventilator Setting PRVC/AC Blood Gas Inspired Oxygen 55 % Imaging Last Impressions Chest X-Ray 11/12/16 0600 Signed Impressions: Service Date/Time: October 02:40 - CONCLUSION: No significant interval change. Roland Maier MD Upper Extremity Ultrasound 11/11/16 0000 Signed Impressions: Service Date/Time: Friday, November 11, 2016 21:51 - CONCLUSION: 1. No evidence of DVT. 2. Focal superficial thrombosis involving the distal right cephalic vein. Roland Maier MD Lower Extremity Ultrasound 11/11/16 0000 Signed Impressions: Service Date/Time: Friday, November 11, 2016 21:22 - CONCLUSION: Negative exam with no evidence of deep venous thrombosis. Rex Corcoran MD Liver Ultrasound 11/09/16 0000 Signed Impressions: Service Date/Time: Wednesday, November 09, 2016 08:03 - CONCLUSION: 1. No acute abnormality. 2. Prior cholecystectomy. Common bile duct is within the normal range in terms of size for patient status post cholecystectomy. 3. Dystrophic calcification involving the right lobe of the liver. Scott Mittal Jr., MD Thoracic Spine MRI 11/07/16 0000 Signed Impressions: Service Date/Time: Monday, November 07, 2016 10:23 - CONCLUSION: 1. There is a fracture of the T1 vertebral body and T5 vertebral body. No significant height loss is present and there is no retropulsion of any fracture fragment. No canal stenosis is present. 2. Please refer to today's chest CT examination report for description of the pulmonary findings. Jimmy Lara MD Renal Ultrasound 11/06/16 0000 Signed Impressions: Service Date/Time: Sunday, November 06, 2016 22:24 - CONCLUSION: Probable complicated cyst midpole left kidney measuring 2.0 cm. Otherwise negative exam. No evidence of hydronephrosis. Scott Cantor MD Chest CT 11/06/16 0000 Signed Impressions: Service Date/Time: Monday, November 07, 2016 10:50 - CONCLUSION: Severe diffuse geographic areas of groundglass attenuation bilaterally with trace bilateral pleural effusions. The pattern is nonspecific but can be seen with infection and ARDS among other etiologies. Jimmy Lara MD Head CT 11/04/16 2326 Signed Impressions: Service Date/Time: Friday, November 04, 2016 23:45 - CONCLUSION: No acute intracranial findings. Jimmy Felton MD Abdomen/Pelvis CT 11/04/16 0000 Signed Impressions: Service Date/Time: Friday, November 04, 2016 23:48 - CONCLUSION: Markedly dilated urinary bladder with mild-moderate bilateral hydronephrosis Jimmy Felton MD Last Impressions Liver Ultrasound 11/09/16 0000 Signed Impressions: Service Date/Time: Wednesday, November 09, 2016 08:03 - CONCLUSION: 1. No acute abnormality. 2. Prior cholecystectomy. Common bile duct is within the normal range in terms of size for patient status post cholecystectomy. 3. Dystrophic calcification involving the right lobe of the liver. Scott Mittal Jr., MD Chest X-Ray 11/09/16 0000 Signed Impressions: Service Date/Time: Wednesday, November 09, 2016 03:36 - CONCLUSION: Mild improvement in the bilateral interstitial infiltrates. Roland Maier MD Thoracic Spine MRI 11/07/16 0000 Signed Impressions: Service Date/Time: Monday, November 07, 2016 10:23 - CONCLUSION: 1. There is a fracture of the T1 vertebral body and T5 vertebral body. No significant height loss is present and there is no retropulsion of any fracture fragment. No canal stenosis is present. 2. Please refer to today's chest CT examination report for description of the pulmonary findings. Jimmy Lara MD Renal Ultrasound 11/06/16 0000 Signed Impressions: Service Date/Time: Sunday, November 06, 2016 22:24 - CONCLUSION: Probable complicated cyst midpole left kidney measuring 2.0 cm. Otherwise negative exam. No evidence of hydronephrosis. Scott Cantor MD Chest CT 11/06/16 0000 Signed Impressions: Service Date/Time: Monday, November 07, 2016 10:50 - CONCLUSION: Severe diffuse geographic areas of groundglass attenuation bilaterally with trace bilateral pleural effusions. The pattern is nonspecific but can be seen with infection and ARDS among other etiologies. Jimmy Lara MD Head CT 11/04/162325 Signed Impressions: Service Date/Time: Friday, November 04, 2016 23:45 - CONCLUSION: No acute intracranial findings. Jimmy Felton MD Abdomen/Pelvis CT 11/04/16 0000 Signed Impressions: Service Date/Time: Friday, November 04, 2016 23:48 - CONCLUSION: Markedly dilated urinary bladder with mild-moderate bilateral hydronephrosis Jimmy Felton MD Last Impressions Chest X-Ray 11/07/16 0600 Signed Impressions: Service Date/Time: Monday, November 07, 2016 05:03 - CONCLUSION: Persistent and stable bilateral air space opacities in the medial lungs. Scott Cantor MD Thoracic Spine MRI 11/07/16 0000 Signed Impressions: Service Date/Time: Monday, November 07, 2016 10:23 - CONCLUSION: 1. There is a fracture of the T1 vertebral body and T5 vertebral body. No significant height loss is present and there is no retropulsion of any fracture fragment. No canal stenosis is present. 2. Please refer to today's chest CT examination report for description of the pulmonary findings. Jimmy Lara MD Renal Ultrasound 11/06/16 0000 Signed Impressions: Service Date/Time: Sunday, November 06, 2016 22:24 - CONCLUSION: Probable complicated cyst midpole left kidney measuring 2.0 cm. Otherwise negative exam. No evidence of hydronephrosis. Scott Cantor MD Chest CT 11/06/16 0000 Signed Impressions: Service Date/Time: Monday, November 07, 2016 10:50 - CONCLUSION: Severe diffuse geographic areas of groundglass attenuation bilaterally with trace bilateral pleural effusions. The pattern is nonspecific but can be seen with infection and ARDS among other etiologies. Jimmy Lara MD Head CT 11/04/166 Signed Impressions: Service Date/Time: Friday, November 04, 2016 23:45 - CONCLUSION: No acute intracranial findings. Jimmy Felton MD Abdomen/Pelvis CT 11/04/16 0000 Signed Impressions: Service Date/Time: Friday, November 04, 2016 23:48 - CONCLUSION: Markedly dilated urinary bladder with mild-moderate bilateral hydronephrosis Jimmy Felton MD Objective Remarks GENERAL: Patient is 71 yo sedated and intubated, responding to yes and no questions, currently fentanyl infusion on hold. SKIN: Warm and dry. HEAD: Normocephalic. EYES: No scleral icterus. No injection or drainage. NECK: Supple, trachea midline. No JVD or lymphadenopathy. [place] J c-collar intact CARDIOVASCULAR: Regular rate and rhythm without murmurs, gallops, or rubs. RESPIRATORY: Breath sounds equal bilaterally. Mechanically ventilated GASTROINTESTINAL: Abdomen soft, non-tender, nondistended. OGT tube feeds infusing. MUSCULOSKELETAL: No cyanosis, or edema. Neuro: Awake GCS 11T , RASS-2 A/P Assessment and Plan NEURO: Acute metabolic encephalopathy C7-T1 fracture (T1 vertebral body comminuted fracture, bilateral C7 pedicle fracture extending to the right facet. Remote history of anterior C6-C7 and C4-C5 fusion with plate placement. Pain -Pain control -will begin scheduled PO narcotics -Fentanyl infusion at 100 mcgs for sedation and analgesia , maintaining RASS - 2. GCS 11T, following commands -CT head negative for acute findings. - 11/07 MRI spine:Fracture of the T1 vertebral body and T5 vertebral body. NSG is following Dr. Bowden RESP: Acute hypoxemic respiratory failure Pulmonary fibrosis/COPD exacerbation Probable HCAP -Continue with vent support keep sat >92%. On ACV RR 16, TV 450, PEEP5, FIO2.40% -Bronchodilators, Solumederol 60mg Q6 -ICU vent bundle, pulm is following-Dr. Escalera -CT chest showed diffuse GGO b/l -Sputum culture11/08 -budding yeast with pseudohyphae -Sputum Culture 11/09-Rare gram negative robin - Continue CPAP trials today CVS A Flutter with RVR Fluid overload -Monitor HR and BP keep MAP>65mmHg. On Cardizem 60mg QID, Metoprolol 12.5mg BID -Echo showed EF 45-50%, diffuse hypokinesis, cardiology is following, Dr. Barrera -Troponin negative GI: Constipation-resolved -Elevated LFT's, check US liver-no acute abnormality .dystrophic calcification right lobe, common bowel duct within normal limits - IV Protonix for GI prophylaxis -On TF-Glucerna 1.5 @45ml/hr @ goal, no residual -Patient on Colace, senna, MiraLAX and Dulcolax suppository PRN. Multiple bowel movements last night : Hydronephrosis from urinary retention/obstruction Hypernatremia -Monitor renal function , I/O's, -Increase free water flushes to 300 cc every 6 -Creatinine 1.6 stable -Renal US: Probable complicated cyst midpole left kidney measuring 2.0 cm. No evidence of hydronephrosis. ID: Probable healthcare associated pneumonia Probable sepsis Persistent fevers -Continue IV Vancomycin ,Zosyn and Diflucan (day 4) Monitor for signs of infections ( Fever, WBC) -Acetaminophen 650mg for temp greater than 101.0 -Sputum culture11/08 -budding yeast with pseudohyphae -Sputum Culture 11/09-Rare gram negative robin -Blood cultures11/08- NGTD -Broad-spectrum antibiotics with Zosyn and Vanco, Diflucan (day 4) -ID consulted- Dr. Phan, appreciate recommendations HEME: -Monitor CBC, CMP ENDO: Hypokalemia Hyperglycemia of critical illness -Electrolyte replacement per protocol. Sliding scale insulin if needed -On Thyroid 90mg daily, TSH: 0.123 -Glucose monitoring every 6 hours per ICU protocol -Sliding-scale insulin PROPH: -Bilateral lower extremity SCDs. Subcutaneous heparin for DVT prophylaxis. IV Protonix for GI prophylaxis LINES: -Utilize peripheral IVs, central line if needed This patient remains critically ill with one or more organ systems which are or may become a threat to life. I have spent in excess of 42 minutes discontinuously in the care and management of this patient. This time is exclusive of procedures, and includes, but is not limited to, evaluation of the patient, review of the medical record, discussions with family, consultants, nursing staff, or respiratory therapy, and documentation in the medical record. Discussed with [facility] at bedside and Dr. Rodríguez(). Megha Quintero MD Nov 13, 2016 15:07
--- NOTE | 2016-11-13 16:47 | PD.CARD.PN ---
Subjective Subjective Remarks Events over night noted, changed to NSR currently, Esmolol drip off Objective Medications Current Medications Medications (Trade) Dose Ordered Sig/Stephanie Route Start Time Stop Time Status Last Admin (NS Flush) 2 ml UNSCH PRN FLUSH 11/05/16 02:15 (NS Flush) 2 ml BID FLUSH 11/05/16 09:00 11/13/16 08:04 (Zofran Inj) 4 mg Q6H PRN IVP 11/05/16 02:15 (Heparin Inj) 5,000 units Q8H SQ 11/05/16 06:00 11/13/16 12:51 (Narcan Inj) 0.4 mg UNSCH PRN IV 11/05/16 02:15 (Proair Hfa Inh) 1 puff Q4H PRN INH 11/05/16 08:45 Hold 11/05/16 21:09 (Xanax) 0.5 mg BID PRN PO 11/05/16 08:45 11/10/16 08:41 (Wellbutrin) 150 mg BID PO 11/05/16 09:00 11/13/16 08:03 (Singulair) 10 mg HS PO 11/05/16 21:00 11/12/16 20:01 Patient Own Medication PT OWN MED: (Levocetirizine 5 MG) DAILY PO 11/06/16 09:00 (Vancomycin Consult Pharmacy) 0 ml @ 0 mls/hr UNSCH OTHER 11/05/16 09:00 (Colace) 100 mg BID PO 11/05/16 09:00 11/13/16 08:03 (Senokot) 17.2 mg DAILY PO 11/05/16 09:00 11/11/16 09:05 (Catapres) 0.1 mg Q6H PRN PO 11/05/16 09:15 11/11/16 23:09 (Spiriva Inh) 18 mcg DAILY INH 11/05/16 11:00 11/06/16 09:41 (Proair Hfa Inh) 2 puff QID INH 11/05/16 13:00 Hold 11/06/16 12:44 ([place] Thyroid) 90 mg DAILY@06 PO 11/07/16 06:00 11/13/16 05:47 Morphine Sulfate 4 mg 4 mg Q4H PRN IV 11/06/16 11:45 11/13/16 11:57 Potassium Chloride 100 ml @ 50 mls/hr Q2H PRN IV-CENTRAL 11/06/16 13:00 11/07/16 06:53 (KCl 20 Meq Premix Inj) 100 ml @ 50 mls/hr Q2H PRN IV 11/06/16 13:00 Potassium Chloride 40 meq 40 meq UNSCH PRN PO/TUBE 11/06/16 13:00 Potassium Chloride 100 ml @ 25 mls/hr UNSCH PRN IV-CENTRAL 11/06/16 13:00 Potassium Chloride 100 ml @ 50 mls/hr Q2H PRN IV 11/06/16 13:00 11/06/16 18:12 (Magnesium Sulfate Inj/NS Inj) 100 ml @ 50 mls/hr UNSCH PRN IV 11/06/16 13:00 Magnesium Oxide 800 mg 800 mg UNSCH PRN PO 11/06/16 13:00 (Magnesium Sulfate Inj/NS Inj) 100 ml @ 50 mls/hr UNSCH PRN IV 11/06/16 13:00 11/07/16 01:13 Potassium Phosphate 2000 mg 2,000 mg Q4H PRN PO 11/06/16 13:00 (Sodium Phosphate Inj/NS 250 ml Inj) 250 ml @ 42 mls/hr UNSCH PRN IV 11/06/16 13:00 11/08/16 09:00 (KCl 40 Meq/30 ml Liq) 40 meq UNSCH PRN PO/TUBE 11/06/16 13:00 Potassium Phosphate 2000 mg 2,000 mg UNSCH PRN PO/TUBE 11/06/16 13:00 (Potassium Phosphate Inj/NS 250 ml Inj) 260 ml @ 42 mls/hr UNSCH PRN IV 11/06/16 13:00 11/10/16 15:06 (SoluMEDROL INJ) 60 mg Q8HR IV PUSH 11/06/16 22:00 11/13/16 12:50 (Protonix Inj) 40 mg Q24H IV PUSH 11/06/16 15:00 11/13/16 14:33 Chlorhexidine Gluconate 15 ml 15 ml BID@08,20 MT 11/06/16 20:00 11/13/16 08:04 Fentanyl Citrate 250 ml @ 0 mls/hr TITRATE IV 11/07/16 09:45 11/13/16 14:33 (Diflucan 200 Mg Premix Bag) 100 ml @ 100 mls/hr Q24H IV 11/08/16 13:00 11/13/16 12:50 (Tylenol) 650 mg Q4H PRN PO 11/08/16 20:15 11/11/16 15:15 (Dulcolax Supp) 10 mg DAILY PRN RECTAL 11/10/16 11:30 11/10/16 12:44 (Pill Splitter) 1 ea UNSCH PRN OTHER 11/10/16 17:45 11/10/16 20:36 Polyethylene Glycol 17 gm 17 gm BID PO 11/11/16 21:00 11/11/16 20:05 (Zithromax Inj/ NS 250 ml Inj) 250 ml @ 250 mls/hr Q24H IV 11/11/16 13:00 11/13/16 14:33 (Lopressor) 25 mg Q12HR PO 11/11/16 21:00 11/13/16 08:03 (D50w (Vial) Inj) 25 ml UNSCH PRN IV PUSH 11/12/16 10:30 (Glucagon Inj) 1 mg UNSCH PRN OTHER 11/12/16 10:30 (Cardizem) 60 mg Q6HR PO 11/12/16 12:00 11/13/16 10:23 Miscellaneous Information SPECIFIC LAB TO BE DRAWN: VANCO TRO... ONCE ONCE XX 11/16/16 09:45 11/16/16 09:46 (Vancomycin Inj/ NS 500 ml Inj) 517.5 ml @ 250 mls/hr Q24H IV 11/13/16 10:00 11/13/16 10:23 (Free Water) 300 ml Q6HR G-TUBE 11/12/16 18:00 11/13/16 11:22 ([place] 10-325 Mg) 1 tab Q6HR PO 11/12/16 18:00 11/13/16 11:22 Vital Signs / I&O Vital Signs Date Time Temp Pulse Resp B/P Pulse Ox O2 Delivery O2 Flow Rate FiO2 11/13/16 16:00 98 11/13/16 16:00 55 11/13/16 16:00 98.5 80 16 155/88 96 11/13/16 14:00 84 11/13/16 12:00 93 11/13/16 12:00 55 11/13/16 12:00 98.4 93 16 161/110 99 11/13/16 11:19 100 55 11/13/16 10:00 128 11/13/16 08:00 97.9 126 21 145/97 98 11/13/16 08:00 126 11/13/16 08:00 55 11/13/16 07:49 99 55 11/13/16 07:49 55 11/13/16 07:00 100 Mechanical Ventilator 11/13/16 06:00 109 11/13/16 04:00 99.3 141 16 122/88 97 11/13/16 04:00 98 55 11/13/16 04:00 55 11/13/16 04:00 141 11/13/16 02:00 111 11/13/16 00:01 98 55 11/13/16 00:00 99.1 112 16 140/79 100 11/13/16 00:00 55 11/13/16 00:00 112 11/12/16 22:00 114 11/12/16 21:05 93 45 11/12/16 20:00 98.3 112 16 142/92 97 11/12/16 20:00 112 11/12/16 20:00 40 11/12/16 19:25 91 45 11/12/16 19:00 92 Mechanical Ventilator 11/12/16 18:00 108 I/O 11/12/16 11/12/16 11/12/16 11/13/16 11/13/16 11/13/16 07:00 15:00 23:00 07:00 15:00 23:00 Intake Total 1449 ml 1034 ml 1072 ml 885 ml 905 ml Output Total 675 ml 600 ml 725 ml 475 ml 550 ml 0 ml Balance 774 ml 434 ml 347 ml 410 ml 355 ml 0 ml Intake Oral 0 ml 0 ml IV Total 965 ml 450 ml 556 ml 204 ml 300 ml Tube Feeding 284 ml 384 ml 276 ml 321 ml 305 ml Other 200 ml 200 ml 240 ml 360 ml 300 ml Output Urine Total 675 ml 600 ml 725 ml 475 ml 550 ml Tube Feeding Residual Discard 0 ml 0 ml 0 ml 0 ml 0 ml 0 ml # Bowel Movements 2 2 0 2 1 Physical Exam GENERAL: On the vent, C-collar in place SKIN: Warm and dry. HEAD: Atraumatic. Normocephalic. EYES: Pupils equal and round. No scleral icterus. No injection or drainage. ENT: Mucous membranes pink and moist. NECK: Trachea midline. No JVD. CARDIOVASCULAR: Irregularly irregular RESPIRATORY: Decreased breath sounds bilaterally GASTROINTESTINAL: Abdomen soft, non-tender, nondistended. Hepatic and splenic margins not palpable. MUSCULOSKELETAL: Extremities without clubbing, cyanosis, or edema. No obvious deformities. NEUROLOGICAL: On the vent, awakes, follows commands PSYCHIATRIC: Unable to obtain Laboratory Laboratory Tests Test 11/13/16 11/13/16 03:55 05:22 White Blood Count 19.6 TH/MM3 Red Blood Count 3.55 MIL/MM3 Hemoglobin 11.6 GM/DL Hematocrit 35.4 % Mean Corpuscular Volume 99.8 FL Mean Corpuscular Hemoglobin 32.6 PG Mean Corpuscular Hemoglobin 32.7 % Concent Red Cell Distribution Width 14.4 % Platelet Count 321 TH/MM3 Mean Platelet Volume 10.1 FL Neutrophils (%) (Auto) 94.1 % Lymphocytes (%) (Auto) 3.4 % Monocytes (%) (Auto) 2.3 % Eosinophils (%) (Auto) 0.0 % Basophils (%) (Auto) 0.2 % Neutrophils # (Auto) 18.4 TH/MM3 Lymphocytes # (Auto) 0.7 TH/MM3 Monocytes # (Auto) 0.4 TH/MM3 Eosinophils # (Auto) 0.0 TH/MM3 Basophils # (Auto) 0.0 TH/MM3 CBC Comment AUTO DIFF Differential Total Cells 100 Counted Neutrophils % (Manual) 86 % Band Neutrophils % 9 % Lymphocytes % 3 % Monocytes % 1 % Neutrophils # (Manual) 18.8 TH/MM3 Metamyelocytes 1 % Differential Comment FINAL DIFF MANUAL Platelet Estimate NORMAL Platelet Morphology Comment NORMAL Red Cell Morphology Comment NORMAL Sodium Level 152 MEQ/L Potassium Level 4.8 MEQ/L Chloride Level 115 MEQ/L Carbon Dioxide Level 33.0 MEQ/L Anion Gap 4 MEQ/L Blood Urea Nitrogen 50 MG/DL Creatinine 1.24 MG/DL Estimat Glomerular Filtration 43 ML/MIN Rate Random Glucose 179 MG/DL Lactic Acid Level 1.9 mmol/L Calcium Level 8.6 MG/DL Phosphorus Level 3.7 MG/DL Magnesium Level 2.6 MG/DL Blood Gas Puncture Site RT BRACHIAL Blood Gas Patient Temperature 98.6 Blood Gas HCO3 31 mmol/L Blood Gas Base Excess 5.9 mmol/L Blood Gas Oxygen Saturation 94 % Arterial Blood pH 7.41 Arterial Blood Partial 50 mmHg Pressure CO2 Arterial Blood Partial 90 mmHg Pressure O2 Arterial Blood Oxygen Content 15.3 Vol % Arterial Blood 1.1 % Carboxyhemoglobin Arterial Blood Methemoglobin 1.1 % Blood Gas Hemoglobin 11.6 G/DL Oxygen Delivery Device VENTILATOR Blood Gas Ventilator Setting PRVC/AC Blood Gas Inspired Oxygen 55 % Assessment and Plan Problem List: (1) T1 vertebral fracture (2) C7 cervical fracture (3) Pneumonia (4) Sepsis (5) Fall Assessment and Plan 1) Afib/flutter with more elevated heart rate, most likely due to fever all day... converted on her own to NSR, con't Lopressor/Cardizem 2) EF 45-50% but very tachycardiac during it 3) ASA for anticoagulation, not a good full anticoagulant candidate with multiple falls recently 4) Vent per critical care 5) Spoke to the who agrees with the current plan of no anticoagulation 6) Will follow up with Dr. Alejandro outpatient 7) Unsure of cause of fever, ID following Problem Qualifiers (1) T1 vertebral fracture: Qualified Code: S22.019D - Closed fracture of first thoracic vertebra with routine healing, unspecified fracture morphology, subsequent encounter (2) C7 cervical fracture: Qualified Code: S12.601D - Closed nondisplaced fracture of seventh cervical vertebra with routine healing, unspecified fracture morphology, subsequent encounter (3) Pneumonia: Qualified Code: J18.9 - Pneumonia of both lungs due to infectious organism, unspecified part of lung (4) Sepsis: Qualified Code: A41.9 - Sepsis, due to unspecified organism Erick Barrera DO Nov 13, 2016 16:47
[2016-11-13] MEDS ORDERED: traMADol HCL 50 MG TAB PO PRN (17:30)
--- NOTE | 2016-11-13 18:23 | HHI.IDPN ---
Note Infectious Disease Note ID follow up. Patient seen 11/11/15 for fevers. She is on the vent. Sedated. Temp lower. Currently afebrile. Ventura secretions. PAST MEDICAL HISTORY 1. Asthma. 2. Pulmonary fibrosis. 3. Gastroesophageal reflux disease. 4. Hemochromatosis. 5. Acid reflux. 6. Cholecystectomy. 7. Lumbar spine surgery. 8. Cervical spine surgery. 9. Hysterectomy. 10. Left parotid gland surgery. 11. Breast reduction. 12. Tonsillectomy. 13. Anterior cervical fusion of C6-C7. ALLERGIES 1. BETADINE. 2. IODINE. 3. THE PATIENT'S REPORTS SHE GETS UPSET STOMACH WITH CIPROFLOXACIN BUT THAT SHE IS UNABLE TO TOLERATE IV CIPROFLOXACIN. ANTIBIOTICS: Azithromycin Vancomycin. Fluconazole. Other meds reviewed. SOCIAL HISTORY No tobacco. Positive alcohol. No illicit drugs. REVIEW OF SYSTEMS Unable to obtain. The patient is on the ventilator. OBJECTIVE: Vital Signs Date Time Temp Pulse Resp B/P Pulse Ox O2 Delivery O2 Flow Rate FiO2 11/13/16 18:00 90 11/13/16 16:46 98 45 11/13/16 16:46 45 11/13/16 16:00 98 11/13/16 16:00 55 11/13/16 16:00 98.5 80 16 155/88 96 11/13/16 14:00 84 11/13/16 12:00 93 11/13/16 12:00 55 11/13/16 12:00 98.4 93 16 161/110 99 11/13/16 11:19 100 55 11/13/16 10:00 128 11/13/16 08:00 97.9 126 21 145/97 98 11/13/16 08:00 126 11/13/16 08:00 55 11/13/16 07:49 99 55 11/13/16 07:49 55 11/13/16 07:00 100 Mechanical Ventilator 11/13/16 06:00 109 11/13/16 04:00 99.3 141 16 122/88 97 11/13/16 04:00 98 55 11/13/16 04:00 55 11/13/16 04:00 141 11/13/16 02:00 111 11/13/16 00:01 98 55 11/13/16 00:00 99.1 112 16 140/79 100 11/13/16 00:00 55 11/13/16 00:00 112 11/12/16 22:00 114 11/12/16 21:05 93 45 11/12/16 20:00 98.3 112 16 142/92 97 11/12/16 20:00 112 11/12/16 20:00 40 11/12/16 19:25 91 45 11/12/16 19:00 92 Mechanical Ventilator 11/12/16 11/12/16 11/13/16 15:00 23:00 07:00 Intake Total 1034 ml 1072 ml 885 ml Output Total 600 ml 725 ml 475 ml Balance 434 ml 347 ml 410 ml Intake Oral 0 ml 0 ml IV Total 450 ml 556 ml 204 ml Tube Feeding 384 ml 276 ml 321 ml Other 200 ml 240 ml 360 ml Output Urine Total 600 ml 725 ml 475 ml Tube Feeding Residual Discard 0 ml 0 ml 0 ml # Bowel Movements 2 0 2 Laboratory Tests Test 11/12/16 11/13/16 03:52 03:55 White Blood Count 21.6 TH/MM3 19.6 TH/MM3 Red Blood Count 3.67 MIL/MM3 3.55 MIL/MM3 Hemoglobin 12.1 GM/DL 11.6 GM/DL Hematocrit 36.8 % 35.4 % Mean Corpuscular Volume 100.2 FL 99.8 FL Mean Corpuscular Hemoglobin 32.8 PG 32.6 PG Mean Corpuscular Hemoglobin 32.7 % 32.7 % Concent Red Cell Distribution Width 14.7 % 14.4 % Platelet Count 371 TH/MM3 321 TH/MM3 Mean Platelet Volume 10.0 FL 10.1 FL Neutrophils (%) (Auto) 91.8 % 94.1 % Lymphocytes (%) (Auto) 3.4 % 3.4 % Monocytes (%) (Auto) 4.4 % 2.3 % Eosinophils (%) (Auto) 0.0 % 0.0 % Basophils (%) (Auto) 0.4 % 0.2 % Neutrophils # (Auto) 19.8 TH/MM3 18.4 TH/MM3 Lymphocytes # (Auto) 0.7 TH/MM3 0.7 TH/MM3 Monocytes # (Auto) 0.9 TH/MM3 0.4 TH/MM3 Eosinophils # (Auto) 0.0 TH/MM3 0.0 TH/MM3 Basophils # (Auto) 0.1 TH/MM3 0.0 TH/MM3 CBC Comment DIFF FINAL AUTO DIFF Differential Comment FINAL DIFF MANUAL Differential Total Cells 100 Counted Neutrophils % (Manual) 86 % Band Neutrophils % 9 % Lymphocytes % 3 % Monocytes % 1 % Neutrophils # (Manual) 18.8 TH/MM3 Metamyelocytes 1 % Platelet Estimate NORMAL Platelet Morphology Comment NORMAL Red Cell Morphology Comment NORMAL Laboratory Tests Test 11/12/16 11/13/16 03:52 03:55 Sodium Level 152 MEQ/L 152 MEQ/L Potassium Level 4.5 MEQ/L 4.8 MEQ/L Chloride Level 112 MEQ/L 115 MEQ/L Carbon Dioxide Level 32.5 MEQ/L 33.0 MEQ/L Anion Gap 8 MEQ/L 4 MEQ/L Blood Urea Nitrogen 55 MG/DL 50 MG/DL Creatinine 1.50 MG/DL 1.24 MG/DL Estimat Glomerular Filtration 34 ML/MIN 43 ML/MIN Rate Random Glucose 281 MG/DL 179 MG/DL Calcium Level 8.7 MG/DL 8.6 MG/DL Phosphorus Level 3.5 MG/DL 3.7 MG/DL Magnesium Level 2.9 MG/DL 2.6 MG/DL Total Bilirubin 0.5 MG/DL Aspartate Amino Transf 30 U/L (AST/SGOT) Alanine Aminotransferase 128 U/L (ALT/SGPT) Alkaline Phosphatase 96 U/L Total Protein 7.0 GM/DL Albumin 2.4 GM/DL Lactic Acid Level 1.9 mmol/L IMAGING: Chest X-Ray 11/12/16 0600 Signed Impressions: Service Date/Time: October 02:40 - CONCLUSION: No significant interval change. Roland Maier MD Upper Extremity Ultrasound 11/11/16 0000 Signed Impressions: Service Date/Time: Friday, November 11, 2016 21:51 - CONCLUSION: 1. No evidence of DVT. 2. Focal superficial thrombosis involving the distal right cephalic vein. Roland Maier MD Lower Extremity Ultrasound 11/11/16 0000 Signed Impressions: Service Date/Time: Friday, November 11, 2016 21:22 - CONCLUSION: Negative exam with no evidence of deep venous thrombosis. Rex Corcoran MD Liver Ultrasound 11/09/16 0000 Signed Impressions: Service Date/Time: Wednesday, November 09, 2016 08:03 - CONCLUSION: 1. No acute abnormality. 2. Prior cholecystectomy. Common bile duct is within the normal range in terms of size for patient status post cholecystectomy. 3. Dystrophic calcification involving the right lobe of the liver. Scott Mittal Jr., MD Thoracic Spine MRI 11/07/16 0000 Signed Impressions: Service Date/Time: Monday, November 07, 2016 10:23 - CONCLUSION: 1. There is a fracture of the T1 vertebral body and T5 vertebral body. No significant height loss is present and there is no retropulsion of any fracture fragment. No canal stenosis is present. 2. Please refer to today's chest CT examination report for description of the pulmonary findings. Jimmy Lara MD Renal Ultrasound 11/06/16 0000 Signed Impressions: Service Date/Time: Sunday, November 06, 2016 22:24 - CONCLUSION: Probable complicated cyst midpole left kidney measuring 2.0 cm. Otherwise negative exam. No evidence of hydronephrosis. cSott Cantor MD Chest CT 11/06/16 0000 Signed Impressions: Service Date/Time: Monday, November 07, 2016 10:50 - CONCLUSION: Severe diffuse geographic areas of groundglass attenuation bilaterally with trace bilateral pleural effusions. The pattern is nonspecific but can be seen with infection and ARDS among other etiologies. Jimmy Lara MD Head CT 11/04/16 2326 Signed Impressions: Service Date/Time: Friday, November 04, 2016 23:45 - CONCLUSION: No acute intracranial findings. Jimmy Felton MD Abdomen/Pelvis CT 11/04/16 0000 Signed Impressions: Service Date/Time: Friday, November 04, 2016 23:48 - CONCLUSION: Markedly dilated urinary bladder with mild-moderate bilateral hydronephrosis Jimmy Felton MD PHYSICAL EXAMINATION GENERAL: No acute distress. HEENT: Unable to fully assess. no icterus. NECK: No adenopathy or swelling. The patient has a neck collar in place. LUNGS: Clear breath sounds. HEART: Regular S1 and S2. No audible murmurs. ABDOMEN: Decreased bowel sounds, soft, no palpable masses. EXTREMITIES: 1+ edema of the extremities. Pulses 2+, radial and dorsalis pedis. SKIN: No rash. NEUROLOGIC: Unable to fully assess. PSYCHIATRIC: Unable to fully assess. IMPRESSION 1. Fever, questionable etiology. Temp lower after stopping beta lactam abx. 2. Acute respiratory failure. 3. Leukocytosis. ? due to PNA. WBC still elevated. 4. Sepsis on admission indicated by elevated heart rate, elevated temperature, elevated white blood cell count. Source unclear but likely pulmonary. 5. Abnormal chest x-ray with bilateral interstitial infiltrates suggesting possible pneumonia versus COPD. Negative sputum culture. Also likely cause of the fever could be drug fever. RECOMMENDATIONS 1. Continue Azithromycin. 2. Continue Fluconazole. 3. Continue vancomycin. 4. Monitor the temperature. 5. Monitor white blood cell count. 6. Monitor clinical status. Roberto Phan MD Nov 13, 2016 18:23
[2016-11-13] MEDS: MONTELUKAST SODIUM 10 MG TAB PO SCH (21:35)
[2016-11-14] VITALS (20 sets, daily range): BP systolic 128–181; BP diastolic 72–93; PULSE 66–98; RESP 16–22; TEMP 97.9–98.9; O2SAT 92–100
[2016-11-14] MEDS: DILTIAZEM HCL 60 MG TAB PO SCH ×5 (01:10→23:40)
[2016-11-14] MEDS: RESP: ALBUTEROL 2.5 MG/IPRATROPIUM 0.5 MG NEB (SCH) NEB ×4 (03:49→16:49)
[2016-11-14] MEDS: ACETAMINOPHEN/HYDROcodone 325 MG/10 MG TAB PO PRN ×2 (04:07→20:25)
[2016-11-14] MEDS: fentaNYL DRIP 250 ML IV SCH (04:33)
[2016-11-14 05:07] LABS: BLOOD GAS BASE EXCESS 6.1 mmol/L (-2-2); BLOOD GAS CARBOXYHEMOGLOBIN 1.2 % (0-4); BLOOD GAS HCO3 31 mmol/L (22-26); BLOOD GAS METHEMOGLOBIN 1.1 % (0-2); BLOOD GAS O2 HGB SATURATION 84 % (90-100); BLOOD GAS OXYGEN CONTENT 13.8 Vol % (12.0-20.0); BLOOD GAS PCO2 52 mmHg (38-42); BLOOD GAS PO2 58 mmHg (61-120); BLOOD GAS TOTAL HGB 11.7 G/DL (12.0-16.0); TEMP CORR TO 98.6
[2016-11-14 05:09] LABS: CRITICAL VALUE YES; OXYGEN DEVICE VENTILATOR
[2016-11-14 05:11] LABS: DRAW SITE RT RADIAL; FIO2 45 %; NUMBER OF ARTERIAL PUNCTURES 1; STAT NO; ULNAR PULSE PRESENT; VENT SETTINGS PRVC/AC
[2016-11-14] MEDS: HEPARIN SODIUM - SQ 10,000 UNITS/ML VIAL SQ SCH ×3 (05:51→22:27)
[2016-11-14] MEDS: methylPREDNISolone SOD SUCC 125 MG/2 ML VIAL IV PUSH SCH ×2 (05:51→15:12)
[2016-11-14] MEDS: THYROID 30 MG TAB PO SCH (05:51)
[2016-11-14] MEDS: FREE WATER G-TUBE SCH ×4 (06:00→17:50)
[2016-11-14] MEDS: RESP: BUDESONIDE 0.5 MG/2 ML NEB NEB SCH ×2 (07:13→20:21)
[2016-11-14 08:13] LABS: HEMATOCRIT 36.8 % (35.0-46.0); MEAN CELL VOLUME 100.5 FL (80.0-100.0); MEAN CORPUSCULAR HGB CONC 31.9 % (32.0-36.0); PLATELET COUNT 310 TH/MM3 (150-450); RED BLOOD COUNT 3.66 MIL/MM3 (4.00-5.30); RED CELL DISTRIBUTION WIDTH 14.6 % (11.6-17.2); REVIEW FLAG FINAL; WHITE BLOOD COUNT 22.9 TH/MM3 (4.0-11.0)
[2016-11-14 08:26] LABS: BICARBONATE 30.4 MEQ/L (21.0-32.0); MAGNESIUM 2.6 MG/DL (1.5-2.5); POTASSIUM 4.7 MEQ/L (3.5-5.1)
[2016-11-14] MEDS: TIOTROPIUM BROMIDE 18 MCG INH INH SCH (09:00)
[2016-11-14] MEDS: LEVOCETIRIZINE 5 MG PO SCH (09:00)
[2016-11-14] MEDS: POLYETHYLENE GLYCOL 17 GM PKG PO SCH ×2 (09:01→21:00)
[2016-11-14] MEDS: SENNOSIDES 8.6 MG TAB PO SCH (09:01)
[2016-11-14] MEDS: DOCUSATE SODIUM 100 MG CAP PO SCH ×2 (09:01→20:26)
[2016-11-14] MEDS: METOPROLOL TARTRATE 25 MG TAB PO SCH ×2 (09:01→20:25)
[2016-11-14] MEDS: VANCOMYCIN INJ 1,750 MG in SODIUM CHLORID 0.9% 500 ML INJ 500 ML IV SCH (09:01)
[2016-11-14] MEDS: buPROPion HCL 100 MG TAB PO SCH ×2 (09:02→20:26)
[2016-11-14] MEDS: HIGH DOSE INSULIN NOVOLOG SUPPLEMENTAL SCALE SQ SCH ×3 (11:00→20:38)
[2016-11-14] MEDS: CHLORHEXIDINE 0.12% (ORAL KIT) 15 ML CUP MT SCH ×2 (12:53→20:27)
[2016-11-14] MEDS: SODIUM CHLORIDE 0.9% FLUSH 5 ML FLUSH FLUSH SCH ×2 (12:53→20:26)
[2016-11-14] MEDS: FLUCONAZOLE 200 MG PREMIX BAG 100 ML IV SCH (12:54)
[2016-11-14] MEDS: AZITHROMYCIN INJ 500 MG in SODIUM CHLOR 0.9% 250 ML INJ 250 ML IV SCH (12:54)
[2016-11-14] MEDS: PANTOPRAZOLE SODIUM 40 MG VIAL IV PUSH SCH (15:13)
--- NOTE | 2016-11-14 17:43 | HHI.CCPN ---
Subjective Remarks/Hospital Course Patient is a 71-year-old female with history of pulmonary fibrosis, asthma, probable COPD on home oxygen who had a recent fall at home and sustained C7/ T1 fractures. She was evaluated by neurosurgery and conservatively managed and placed in a cervical collar. She was discharged home on 11/04/16. The pt developed inability to ambulate at home and also had urinary retention. Patient 's also noticed that she had been more confused. ER workup included a CT of the head which was negative, CT of the abdomen pelvis showed markedly distended bladder with mild to moderate hydronephrosis. Sanders catheter was inserted. Chest x-ray showed increasing bilateral infiltrates. Patient was admitted to the hospitalist service, on broad-spectrum antibiotics with Zosyn and vancomycin, breathing treatments. Neurology Dr. Xiong was also consulted Today was noted to have increasing shortness of breath today, tachypnea and hypoxia requiring a partial nonrebreather. Also noted to have A flutter with rapid ventricular response. Cardizem boluses 2 was given on Cardizem infusion was started. Because of her worsening respiratory failure patient was moved to the ICU. Critical care medicine consulted and I immediately evaluated the patient. She is in moderate distress on partial nonrebreather breathing 35-40/ m. Chest exam shows bilateral crackles and wheezes. I have added Solu-Medrol and scheduled breathing treatments and ordered BiPAP 10 over 5. I explained to the patient and the that patient may need endotracheal intubation and mechanical ventilation if she is not improving with BiPAP. 11/07 Patient is sedated with Diprivan and intubated. Afebrile. On Cardizem drip 5mg/hr, for MRI spine and CT thorax today. 11/08 Patient is sedated with Fentnayl and intubated. Afebrile. Renal function worse today with Cr: 1.65 from 1.15 11/09 Tmax 102.2. The patient's sputum culture grew preliminarily budding yeast with pseudohyphae. Diflucan initiated yesterday white count trending down. Lasix discontinued yesterday secondary to elevated creatinine level. 11/10 Afebrile. Able to wean oxygenation to FiO2 of 40% today. CPAP trials plan for today. The patient was noted to be hypernatremic free water flushes were added to her tube feedings. Creatinine slightly improved today. PT consulted Functional maintenance with specific requirements to be referred to neurosurgery for restrictions of any type of activities regarding functional maintenance. 11/11 Tmax 101.7. Patient continues to have persistent fevers, on antibiotic therapy, ID consulted,Dr Phan, appreciate recommendations. The patient has elevations in heart rate with activity/movement, received 2 doses of metoprolol with some diminution, from 160 to 90's yesterday. Overnight the patient's heart rate remained in the 120's. CPAP trials were initiated yesterday the patient was able to maintain the trial for approximately 4 hours. 11/12 Persistent fever last 24 hours, patient placed on a cooling blanket. Antibiotics adjusted per ID, Dr. Phan. Ultrasound Doppler obtained bilateral upper and lower extremities results superficial thrombus white distal cephalic vein. The patient was maintained on CPAP approximately 9 hours yesterday. Fentanyl infusion resumed today, patient complained of pain. Scheduled by mouth narcotics initiated. 11/13 CPAP trials lasted 11 hours. Patient continues to have fevers on a cooling blanket, Dr. Phan managing antibiotic regimen. Patient can continuously complain of pain, scheduled pain meds multimodal therapy approach initiated. Subjective: 11/14 Was on CPAP 10/8 FiO2 55% for several hours and then terminated due to desaturation. WBC up to 22.9 without fever. No significant respiratory secretions. Had diarrhea yesterday but now RN reports no BM today after holding bowel regimen. Abdomen benign and tolerating tube feeds. Check for C diff if has a loose stool. Panculture sent. updated at bedside. Has no invasive lines. Objective Vital Signs Date Time Temp Pulse Resp B/P Pulse Ox O2 Delivery O2 Flow Rate FiO2 11/14/16 14:26 95 55 11/14/16 14:00 71 11/14/16 12:00 97.9 18 164/93 11/14/16 08:00 Mechanical Ventilator Intake and Output 11/13/16 11/13/16 11/14/16 08:00 16:00 00:00 Intake Total 885 ml 905 ml 896 ml Output Total 475.0 ml 550.0 ml 600.0 ml Balance 410.0 ml 355.0 ml 296.0 ml Result Diagram: 11/14/16 0737 11/14/16 0737 Other Results Laboratory Tests Test 11/14/16 04:55 Blood Gas Puncture Site RT RADIAL Blood Gas Patient Temperature 98.6 Blood Gas HCO3 31 mmol/L (22-26) Blood Gas Base Excess 6.1 mmol/L (-2-2) Blood Gas Oxygen Saturation 84 % (90-100) Arterial Blood pH 7.40 (7.380-7.420) Arterial Blood Partial 52 mmHg (38-42) Pressure CO2 Arterial Blood Partial 58 mmHg Pressure O2 (61-120) Arterial Blood Oxygen Content 13.8 Vol % (12.0-20.0) Arterial Blood 1.2 % (0-4) Carboxyhemoglobin Arterial Blood Methemoglobin 1.1 % (0-2) Blood Gas Hemoglobin 11.7 G/DL (12.0-16.0) Oxygen Delivery Device VENTILATOR Blood Gas Ventilator Setting PRVC/AC Blood Gas Inspired Oxygen 45 % Imaging Last Impressions Chest X-Ray 11/12/16 0600 Signed Impressions: Service Date/Time: October 02:40 - CONCLUSION: No significant interval change. Roland Maier MD Upper Extremity Ultrasound 11/11/16 0000 Signed Impressions: Service Date/Time: Friday, November 11, 2016 21:51 - CONCLUSION: 1. No evidence of DVT. 2. Focal superficial thrombosis involving the distal right cephalic vein. Roland Maier MD Lower Extremity Ultrasound 11/11/16 0000 Signed Impressions: Service Date/Time: Friday, November 11, 2016 21:22 - CONCLUSION: Negative exam with no evidence of deep venous thrombosis. Rex Corcoran MD Liver Ultrasound 11/09/16 0000 Signed Impressions: Service Date/Time: Wednesday, November 09, 2016 08:03 - CONCLUSION: 1. No acute abnormality. 2. Prior cholecystectomy. Common bile duct is within the normal range in terms of size for patient status post cholecystectomy. 3. Dystrophic calcification involving the right lobe of the liver. Scott Mittal Jr., MD Thoracic Spine MRI 11/07/16 0000 Signed Impressions: Service Date/Time: Monday, November 07, 2016 10:23 - CONCLUSION: 1. There is a fracture of the T1 vertebral body and T5 vertebral body. No significant height loss is present and there is no retropulsion of any fracture fragment. No canal stenosis is present. 2. Please refer to today's chest CT examination report for description of the pulmonary findings. Jimmy Lara MD Renal Ultrasound 11/06/16 0000 Signed Impressions: Service Date/Time: Sunday, November 06, 2016 22:24 - CONCLUSION: Probable complicated cyst midpole left kidney measuring 2.0 cm. Otherwise negative exam. No evidence of hydronephrosis. Scott Cantor MD Chest CT 11/06/16 0000 Signed Impressions: Service Date/Time: Monday, November 07, 2016 10:50 - CONCLUSION: Severe diffuse geographic areas of groundglass attenuation bilaterally with trace bilateral pleural effusions. The pattern is nonspecific but can be seen with infection and ARDS among other etiologies. Jimmy Lara MD Head CT 11/04/16 2326 Signed Impressions: Service Date/Time: Friday, November 04, 2016 23:45 - CONCLUSION: No acute intracranial findings. Jimmy Felton MD Abdomen/Pelvis CT 11/04/16 0000 Signed Impressions: Service Date/Time: Friday, November 04, 2016 23:48 - CONCLUSION: Markedly dilated urinary bladder with mild-moderate bilateral hydronephrosis Jimmy Felton MD Last Impressions Chest X-Ray 11/12/16 0600 Signed Impressions: Service Date/Time: October 02:40 - CONCLUSION: No significant interval change. Roland Maier MD Upper Extremity Ultrasound 11/11/16 0000 Signed Impressions: Service Date/Time: Friday, November 11, 2016 21:51 - CONCLUSION: 1. No evidence of DVT. 2. Focal superficial thrombosis involving the distal right cephalic vein. Roland Maier MD Lower Extremity Ultrasound 11/11/16 0000 Signed Impressions: Service Date/Time: Friday, November 11, 2016 21:22 - CONCLUSION: Negative exam with no evidence of deep venous thrombosis. Rex Corcoran MD Liver Ultrasound 11/09/16 0000 Signed Impressions: Service Date/Time: Wednesday, November 09, 2016 08:03 - CONCLUSION: 1. No acute abnormality. 2. Prior cholecystectomy. Common bile duct is within the normal range in terms of size for patient status post cholecystectomy. 3. Dystrophic calcification involving the right lobe of the liver. Scott Mittal Jr., MD Thoracic Spine MRI 11/07/16 0000 Signed Impressions: Service Date/Time: Monday, November 07, 2016 10:23 - CONCLUSION: 1. There is a fracture of the T1 vertebral body and T5 vertebral body. No significant height loss is present and there is no retropulsion of any fracture fragment. No canal stenosis is present. 2. Please refer to today's chest CT examination report for description of the pulmonary findings. Jimmy Lara MD Renal Ultrasound 11/06/16 0000 Signed Impressions: Service Date/Time: Sunday, November 06, 2016 22:24 - CONCLUSION: Probable complicated cyst midpole left kidney measuring 2.0 cm. Otherwise negative exam. No evidence of hydronephrosis. Scott Cantor MD Chest CT 11/06/16 0000 Signed Impressions: Service Date/Time: Monday, November 07, 2016 10:50 - CONCLUSION: Severe diffuse geographic areas of groundglass attenuation bilaterally with trace bilateral pleural effusions. The pattern is nonspecific but can be seen with infection and ARDS among other etiologies. Jimmy Lara MD Head CT 11/04/16 2326 Signed Impressions: Service Date/Time: Friday, November 04, 2016 23:45 - CONCLUSION: No acute intracranial findings. Jimmy Felton MD Abdomen/Pelvis CT 11/04/16 0000 Signed Impressions: Service Date/Time: Friday, November 04, 2016 23:48 - CONCLUSION: Markedly dilated urinary bladder with mild-moderate bilateral hydronephrosis Jimmy Felton MD Last Impressions Liver Ultrasound 11/09/16 0000 Signed Impressions: Service Date/Time: Wednesday, November 09, 2016 08:03 - CONCLUSION: 1. No acute abnormality. 2. Prior cholecystectomy. Common bile duct is within the normal range in terms of size for patient status post cholecystectomy. 3. Dystrophic calcification involving the right lobe of the liver. Scott Mittal Jr., MD Chest X-Ray 11/09/16 0000 Signed Impressions: Service Date/Time: Wednesday, November 09, 2016 03:36 - CONCLUSION: Mild improvement in the bilateral interstitial infiltrates. Roland Maier MD Thoracic Spine MRI 11/07/16 0000 Signed Impressions: Service Date/Time: Monday, November 07, 2016 10:23 - CONCLUSION: 1. There is a fracture of the T1 vertebral body and T5 vertebral body. No significant height loss is present and there is no retropulsion of any fracture fragment. No canal stenosis is present. 2. Please refer to today's chest CT examination report for description of the pulmonary findings. Jimmy Lara MD Renal Ultrasound 11/06/16 0000 Signed Impressions: Service Date/Time: Sunday, November 06, 2016 22:24 - CONCLUSION: Probable complicated cyst midpole left kidney measuring 2.0 cm. Otherwise negative exam. No evidence of hydronephrosis. Scott Cantor MD Chest CT 11/06/16 0000 Signed Impressions: Service Date/Time: Monday, November 07, 2016 10:50 - CONCLUSION: Severe diffuse geographic areas of groundglass attenuation bilaterally with trace bilateral pleural effusions. The pattern is nonspecific but can be seen with infection and ARDS among other etiologies. Jimmy Lara MD Head CT 11/04/16 2326 Signed Impressions: Service Date/Time: Friday, November 04, 2016 23:45 - CONCLUSION: No acute intracranial findings. Jimmy Felton MD Abdomen/Pelvis CT 11/04/16 0000 Signed Impressions: Service Date/Time: Friday, November 04, 2016 23:48 - CONCLUSION: Markedly dilated urinary bladder with mild-moderate bilateral hydronephrosis Jimmy Felton MD Last Impressions Chest X-Ray 11/07/16 0600 Signed Impressions: Service Date/Time: Monday, November 07, 2016 05:03 - CONCLUSION: Persistent and stable bilateral air space opacities in the medial lungs. Scott Cantor MD Thoracic Spine MRI 11/07/16 0000 Signed Impressions: Service Date/Time: Monday, November 07, 2016 10:23 - CONCLUSION: 1. There is a fracture of the T1 vertebral body and T5 vertebral body. No significant height loss is present and there is no retropulsion of any fracture fragment. No canal stenosis is present. 2. Please refer to today's chest CT examination report for description of the pulmonary findings. Jimmy Lara MD Renal Ultrasound 11/06/16 0000 Signed Impressions: Service Date/Time: Sunday, November 06, 2016 22:24 - CONCLUSION: Probable complicated cyst midpole left kidney measuring 2.0 cm. Otherwise negative exam. No evidence of hydronephrosis. Scott Cantor MD Chest CT 11/06/16 0000 Signed Impressions: Service Date/Time: Monday, November 07, 2016 10:50 - CONCLUSION: Severe diffuse geographic areas of groundglass attenuation bilaterally with trace bilateral pleural effusions. The pattern is nonspecific but can be seen with infection and ARDS among other etiologies. Jimmy Lara MD Head CT 11/04/16 2326 Signed Impressions: Service Date/Time: Friday, November 04, 2016 23:45 - CONCLUSION: No acute intracranial findings. Jimmy Felton MD Abdomen/Pelvis CT 11/04/16 0000 Signed Impressions: Service Date/Time: Friday, November 04, 2016 23:48 - CONCLUSION: Markedly dilated urinary bladder with mild-moderate bilateral hydronephrosis Jimmy Felton MD Objective Remarks GENERAL: Patient is 71 yo awake and alert, following commands. SKIN: Warm and dry. HEAD: Normocephalic. EYES: No scleral icterus. No injection or drainage. NECK: Supple, trachea midline. No JVD or lymphadenopathy. Molt J C-collar in place CARDIOVASCULAR: Regular rate and rhythm without murmurs, gallops, or rubs. RESPIRATORY: Breath sounds equal bilaterally with coarse BS bibasilar. . Mechanically ventilated GASTROINTESTINAL: Abdomen soft, non-tender, nondistended. OGT tube feeds infusing at goal rate. MUSCULOSKELETAL: No cyanosis, 1-2+ edema, all extremities Neuro: Awake , makes eye contact and follows commands with all extremities. A/P Assessment and Plan NEURO: Acute metabolic encephalopathy, improved C7-T1 fracture (T1 vertebral body comminuted fracture, bilateral C7 pedicle fracture extending to the right facet. Remote history of anterior C6-C7 and C4-C5 fusion with plate placement. Pain -Pain control -multimodal pain therapy-Roxicodone every 6 hours, tramadol every 6 hours, continue low-dose fentanyl infusion -Fentanyl infusion at 100 mcgs for sedation and analgesia , maintaining RASS - 2. -CT head negative for acute findings. - 11/07 MRI spine:Fracture of the T1 vertebral body and T5 vertebral body. NSG is following Dr. Bowden RESP: Acute hypoxemic respiratory failure Pulmonary fibrosis/COPD exacerbation History of asthma Probable HCAP -Continue with vent support keep sat >92%. On ACV RR 16, TV 450, PEEP5, FIO2.40% -Bronchodilators, Solumederol decreased to 20 g IV every [address] Escalera -ICU vent bundle, pulm is following-Dr. Escalera -CT chest showed diffuse GGO b/l -Sputum culture11/08 -budding yeast with pseudohyphae -Sputum Culture 11/09-Rare gram negative robin - Continue CPAP trials. F/u cxr. - I>0, will reattempt diuresis as increasingly positive fluid status and though oxygenation was improving, now increased fIO2 again. -Discussed with , holding off on initiation of Xolair at this time due to concern for infection. CVS A Flutter with RVR Fluid overload -Monitor HR and BP keep MAP>65mmHg. On Cardizem 60mg QID, Metoprolol 12.5mg BID -Echo showed EF 45-50%, diffuse hypokinesis, cardiology is following, Dr. Barrera -Troponin negative -Off esmolol GI: Constipation-resolved -Elevated LFT's, check US liver-no acute abnormality .dystrophic calcification right lobe, common bowel duct within normal limits - IV Protonix for GI prophylaxis -On TF-Glucerna 1.5 @45ml/hr @ goal, no residual -Patient on Colace, senna, MiraLAX and Dulcolax suppository PRN. Lactulose discontinued. fEN/RENAL: Hydronephrosis from urinary retention/obstruction Hypernatremia -Monitor renal function , I/O's, -Continue free water flushes to 300 cc every 6 BUN elevation may in part be secondary to steroids. -Lasix as per above. -Renal US: Probable complicated cyst midpole left kidney measuring 2.0 cm. No evidence of hydronephrosis. ID: Probable healthcare associated pneumonia sepsis Persistent fevers Leukocytosis - (thromobphlebitis vs steroids vs infectious) -Acetaminophen 650mg for temp greater than 101.0 -Sputum culture11/08 -budding yeast with pseudohyphae -Sputum Culture 11/09-Rare gram negative robin -Blood cultures11/08- NGTD -Abx per ID, Dr. Phan, management of antibiotic regimen (vancomycin, azithromycin, fluconazole). If clinical change/instability, consider broadened antifungal such as micafungin, and empiric coverage for C diff. -Check C diff, blood cultures, u/a cultures, sputum culture in view of increasing WBC. -US11/12 bilateral upper and lower extremities-superficial nonocclusive thrombus right cephalic vein HEME: -Monitor CBC, CMP ENDO: Hypokalemia Hyperglycemia of critical illness -Electrolyte replacement per protocol. Sliding scale insulin if needed -On Thyroid 90mg daily, TSH: 0.123 -Glucose monitoring every 6 hours per ICU protocol -Sliding-scale insulin MSK: -PT-functional maintenance daily -Apply Multi-Podus boots PROPH: -Bilateral lower extremity SCDs. Subcutaneous heparin for DVT prophylaxis. IV Protonix for GI prophylaxis LINES: -Utilize peripheral IVs. No invasive lines. This patient remains critically ill with one or more organ systems which are or may become a threat to life. I have spent in excess of 35 minutes discontinuously in the care and management of this patient. This time is exclusive of procedures, and includes, but is not limited to, evaluation of the patient, review of the medical record, discussions with family, consultants, nursing staff, or respiratory therapy, and documentation in the medical record. Discussed with MANAGER OF MERCHANDISING at bedside and Dr. Rodríguez(). Discussed with Dr. Escalera. Shanthi Norton MD Nov 14, 2016 17:43
[2016-11-14] MEDS: FUROSEMIDE 40 MG/4 ML VIAL IV PUSH SCH (17:49)
--- NOTE | 2016-11-14 18:44 | RADRPT ---
EXAM DATE/TIME: 11/14/2016 18:06 [facility] COMPARISON: CHEST SINGLE AP, November 12, 2016, 2:40. INDICATIONS : Evaluate for respiratory disease. MEDICAL HISTORY : Hypertension. Cardiovascular disease. Pulmonary fibrosis. SURGICAL HISTORY : Breast reduction, spinal fusion. ENCOUNTER: Subsequent ACUITY: 2 weeks PAIN SCORE: Non-responsive. LOCATION: chest FINDINGS: The examination is performed on an egg crate pad. Endotracheal tube tip well above the dhara. Ivy joy tube traverse the [id number]. There is some mild patchy infiltrates throughout both lungs wit hout focal areas of consolidation. There is mild loss of delineation of a portion of the medial left hemidiaphragm. CONCLUSION: The findings suggest diffuse non-consolidative infiltrates in both lungs, however, the examination is performed on an egg crate pad which may be partially simulating infiltrates. If followup examinatio n is performed, recommend performing a without the pad. Scott Cantor MD on November 14, 2016 at 18:40 Board Certified Radiologist. This report was verified electronically.
[2016-11-14] MEDS: MONTELUKAST SODIUM 10 MG TAB PO SCH (20:25)
[2016-11-14] MEDS: ALPRAZolam 0.5 MG TAB PO PRN (20:25)
[2016-11-14 20:40] LABS: BACTERIA, URINE RARE /hpf; BLOOD, URINE TRACE (NEG); COMMENT (UR) CATH-CULT NOT IND; CULTURE IF INDICATED CATH CULTURE NOT IND; GLUCOSE,URINE NEG (NEG); KETONE, URINE NEG (NEG); MUCUS URINE FEW /lpf (OCC); NITRITE,URINE NEG (NEG); URINE COLOR YELLOW (YELLW/STRAW)
[2016-11-15] VITALS (20 sets, daily range): BP systolic 111–162; BP diastolic 59–81; PULSE 59–105; RESP 16–22; TEMP 98.6–99.9; O2SAT 88–99
[2016-11-15] MEDS: HIGH DOSE INSULIN NOVOLOG SUPPLEMENTAL SCALE SQ SCH ×5 (02:49→20:24)
[2016-11-15] MEDS: methylPREDNISolone SOD SUCC 40 MG/1 ML VIAL IV SCH ×2 (02:49→13:16)
[2016-11-15 05:13] LABS: AUTOMATED NEUTROPHIL # 16.4 TH/MM3 (1.8-7.7); BASOPHIL % 0.1 % (0.0-2.0); HEMATOCRIT 33.1 % (35.0-46.0); HEMO FLAGS DIFF FINAL; LYMPH % 2.1 % (9.0-44.0); LYMPHOCYTE # 0.4 TH/MM3 (1.0-4.8); MEAN CELL VOLUME 99.9 FL (80.0-100.0); MEAN CORPUSCULAR HEMOGLOBIN 32.5 PG (27.0-34.0); MEAN CORPUSCULAR HGB CONC 32.5 % (32.0-36.0); MONO % 1.7 % (0.0-8.0); NEUT % 96.1 % (16.0-70.0); PLATELET COUNT 241 TH/MM3 (150-450); RED BLOOD COUNT 3.32 MIL/MM3 (4.00-5.30); RED CELL DISTRIBUTION WIDTH 14.2 % (11.6-17.2); WHITE BLOOD COUNT 17.1 TH/MM3 (4.0-11.0)
[2016-11-15 05:40] LABS: BICARBONATE 31.9 MEQ/L (21.0-32.0); POTASSIUM 4.5 MEQ/L (3.5-5.1)
[2016-11-15] MEDS: FREE WATER G-TUBE SCH ×5 (06:00→23:21)
[2016-11-15] MEDS: HEPARIN SODIUM - SQ 10,000 UNITS/ML VIAL SQ SCH ×3 (06:09→21:13)
[2016-11-15] MEDS: FUROSEMIDE 40 MG/4 ML VIAL IV PUSH SCH ×2 (06:09→18:25)
[2016-11-15] MEDS: DILTIAZEM HCL 60 MG TAB PO SCH ×4 (06:09→23:22)
[2016-11-15] MEDS: THYROID 30 MG TAB PO SCH (06:09)
[2016-11-15] MEDS: RESP: BUDESONIDE 0.5 MG/2 ML NEB NEB SCH ×2 (08:02→20:09)
[2016-11-15] MEDS: TIOTROPIUM BROMIDE 18 MCG INH INH SCH (09:00)
[2016-11-15] MEDS: LEVOCETIRIZINE 5 MG PO SCH (09:00)
--- NOTE | 2016-11-15 09:51 | HHI.CCPN ---
Subjective Remarks/Hospital Course Patient is a 71-year-old female with history of pulmonary fibrosis, asthma, probable COPD on home oxygen who had a recent fall at home and sustained C7/ T1 fractures. She was evaluated by neurosurgery and conservatively managed and placed in a cervical collar. She was discharged home on 11/04/16. The pt developed inability to ambulate at home and also had urinary retention. Patient 's also noticed that she had been more confused. ER workup included a CT of the head which was negative, CT of the abdomen pelvis showed markedly distended bladder with mild to moderate hydronephrosis. Sanders catheter was inserted. Chest x-ray showed increasing bilateral infiltrates. Patient was admitted to the hospitalist service, on broad-spectrum antibiotics with Zosyn and vancomycin, breathing treatments. Neurology Dr. Xiong was also consulted Today was noted to have increasing shortness of breath today, tachypnea and hypoxia requiring a partial nonrebreather. Also noted to have A flutter with rapid ventricular response. Cardizem boluses 2 was given on Cardizem infusion was started. Because of her worsening respiratory failure patient was moved to the ICU. Critical care medicine consulted and I immediately evaluated the patient. She is in moderate distress on partial nonrebreather breathing 35-40/ m. Chest exam shows bilateral crackles and wheezes. I have added Solu-Medrol and scheduled breathing treatments and ordered BiPAP 10 over 5. I explained to the patient and the that patient may need endotracheal intubation and mechanical ventilation if she is not improving with BiPAP. 11/07 Patient is sedated with Diprivan and intubated. Afebrile. On Cardizem drip 5mg/hr, for MRI spine and CT thorax today. 11/08 Patient is sedated with Fentnayl and intubated. Afebrile. Renal function worse today with Cr: 1.65 from 1.15 11/09 Tmax 102.2. The patient's sputum culture grew preliminarily budding yeast with pseudohyphae. Diflucan initiated yesterday white count trending down. Lasix discontinued yesterday secondary to elevated creatinine level. 11/10 Afebrile. Able to wean oxygenation to FiO2 of 40% today. CPAP trials plan for today. The patient was noted to be hypernatremic free water flushes were added to her tube feedings. Creatinine slightly improved today. PT consulted Functional maintenance with specific requirements to be referred to neurosurgery for restrictions of any type of activities regarding functional maintenance. 11/11 Tmax 101.7. Patient continues to have persistent fevers, on antibiotic therapy, ID consulted,Dr Phan, appreciate recommendations. The patient has elevations in heart rate with activity/movement, received 2 doses of metoprolol with some diminution, from 160 to 90's yesterday. Overnight the patient's heart rate remained in the 120's. CPAP trials were initiated yesterday the patient was able to maintain the trial for approximately 4 hours. 11/12 Persistent fever last 24 hours, patient placed on a cooling blanket. Antibiotics adjusted per ID, Dr. Phan. Ultrasound Doppler obtained bilateral upper and lower extremities results superficial thrombus white distal cephalic vein. The patient was maintained on CPAP approximately 9 hours yesterday. Fentanyl infusion resumed today, patient complained of pain. Scheduled by mouth narcotics initiated. 11/13 CPAP trials lasted 11 hours. Patient continues to have fevers on a cooling blanket, Dr. Phan managing antibiotic regimen. Patient can continuously complain of pain, scheduled pain meds multimodal therapy approach initiated. 11/14 Was on CPAP 10/8 FiO2 55% for several hours and then terminated due to desaturation. WBC up to 22.9 without fever. No significant respiratory secretions. Had diarrhea yesterday but now RN reports no BM today after holding bowel regimen. Abdomen benign and tolerating tube feeds. Check for C diff if has a loose stool. Panculture sent. updated at bedside. Has no invasive lines. Subjective: 11/15 Diuresed net negative 1 L last shift following lasix. Creatinine downtrend to 1.19. Sodium down to 150. Received 6 am dose of Lasix. FiO2 weaned to 45%. WBC down 17. Afebrile. Placed on CPAP 5/5 and TV 550 and RSBI 30s. Sats 89-92% on 50%. Objective Vital Signs Date Time Temp Pulse Resp B/P Pulse Ox O2 Delivery O2 Flow Rate FiO2 11/15/16 08:16 45 11/15/16 08:02 95 11/15/16 06:00 59 11/15/16 04:00 98.9 16 138/73 11/14/16 20:00 Mechanical Ventilator Intake and Output 11/14/16 11/14/16 11/15/16 08:00 16:00 00:00 Intake Total 1313 ml 1465 ml 980 ml Output Total 525.0 ml 750.0 ml 2000 ml Balance 788.0 ml 715.0 ml -1020 ml Result Diagram: 11/15/1642611/15/16426 Imaging Last Impressions Chest X-Ray 11/12/16 0600 Signed Impressions: Service Date/Time: October 02:40 - CONCLUSION: No significant interval change. Roland Maier MD Upper Extremity Ultrasound 11/11/16 0000 Signed Impressions: Service Date/Time: Friday, November 11, 2016 21:51 - CONCLUSION: 1. No evidence of DVT. 2. Focal superficial thrombosis involving the distal right cephalic vein. Roland Maier MD Lower Extremity Ultrasound 11/11/16 0000 Signed Impressions: Service Date/Time: Friday, November 11, 2016 21:22 - CONCLUSION: Negative exam with no evidence of deep venous thrombosis. Rex Corcoran MD Liver Ultrasound 11/09/16 0000 Signed Impressions: Service Date/Time: Wednesday, November 09, 2016 08:03 - CONCLUSION: 1. No acute abnormality. 2. Prior cholecystectomy. Common bile duct is within the normal range in terms of size for patient status post cholecystectomy. 3. Dystrophic calcification involving the right lobe of the liver. Scott Mittal Jr., MD Thoracic Spine MRI 11/07/16 0000 Signed Impressions: Service Date/Time: Monday, November 07, 2016 10:23 - CONCLUSION: 1. There is a fracture of the T1 vertebral body and T5 vertebral body. No significant height loss is present and there is no retropulsion of any fracture fragment. No canal stenosis is present. 2. Please refer to today's chest CT examination report for description of the pulmonary findings. Jimmy Lara MD Renal Ultrasound 11/06/16 0000 Signed Impressions: Service Date/Time: Sunday, November 06, 2016 22:24 - CONCLUSION: Probable complicated cyst midpole left kidney measuring 2.0 cm. Otherwise negative exam. No evidence of hydronephrosis. Scott Cantor MD Chest CT 11/06/16 0000 Signed Impressions: Service Date/Time: Monday, November 07, 2016 10:50 - CONCLUSION: Severe diffuse geographic areas of groundglass attenuation bilaterally with trace bilateral pleural effusions. The pattern is nonspecific but can be seen with infection and ARDS among other etiologies. Jimmy Lara MD Head CT 11/04/16 2326 Signed Impressions: Service Date/Time: Friday, November 04, 2016 23:45 - CONCLUSION: No acute intracranial findings. Jimmy Felton MD Abdomen/Pelvis CT 11/04/16 0000 Signed Impressions: Service Date/Time: Friday, November 04, 2016 23:48 - CONCLUSION: Markedly dilated urinary bladder with mild-moderate bilateral hydronephrosis Jimmy Felton MD Last Impressions Chest X-Ray 11/12/16 0600 Signed Impressions: Service Date/Time: October 02:40 - CONCLUSION: No significant interval change. Roland Maier MD Upper Extremity Ultrasound 11/11/16 0000 Signed Impressions: Service Date/Time: Friday, November 11, 2016 21:51 - CONCLUSION: 1. No evidence of DVT. 2. Focal superficial thrombosis involving the distal right cephalic vein. Roland Maier MD Lower Extremity Ultrasound 11/11/16 0000 Signed Impressions: Service Date/Time: Friday, November 11, 2016 21:22 - CONCLUSION: Negative exam with no evidence of deep venous thrombosis. Rex Corcoran MD Liver Ultrasound 11/09/16 0000 Signed Impressions: Service Date/Time: Wednesday, November 09, 2016 08:03 - CONCLUSION: 1. No acute abnormality. 2. Prior cholecystectomy. Common bile duct is within the normal range in terms of size for patient status post cholecystectomy. 3. Dystrophic calcification involving the right lobe of the liver. Scott Mittal Jr., MD Thoracic Spine MRI 11/07/16 0000 Signed Impressions: Service Date/Time: Monday, November 07, 2016 10:23 - CONCLUSION: 1. There is a fracture of the T1 vertebral body and T5 vertebral body. No significant height loss is present and there is no retropulsion of any fracture fragment. No canal stenosis is present. 2. Please refer to today's chest CT examination report for description of the pulmonary findings. Jimmy Lara MD Renal Ultrasound 11/06/16 0000 Signed Impressions: Service Date/Time: Sunday, November 06, 2016 22:24 - CONCLUSION: Probable complicated cyst midpole left kidney measuring 2.0 cm. Otherwise negative exam. No evidence of hydronephrosis. Scott Cantor MD Chest CT 11/06/16 Signed Impressions: Service Date/Time: Monday, November 07, 2016 10:50 - CONCLUSION: Severe diffuse geographic areas of groundglass attenuation bilaterally with trace bilateral pleural effusions. The pattern is nonspecific but can be seen with infection and ARDS among other etiologies. Jimmy Lara MD Head CT 11/04/16 232 Signed Impressions: Service Date/Time: Friday, November 04, 2016 23:45 - CONCLUSION: No acute intracranial findings. Jimmy Felton MD Abdomen/Pelvis CT 11/04/16 Signed Impressions: Service Date/Time: Friday, November 04, 2016 23:48 - CONCLUSION: Markedly dilated urinary bladder with mild-moderate bilateral hydronephrosis Jimmy Felton MD Last Impressions Liver Ultrasound 11/09/16 Signed Impressions: Service Date/Time: Wednesday, November 09, 2016 08:03 - CONCLUSION: 1. No acute abnormality. 2. Prior cholecystectomy. Common bile duct is within the normal range in terms of size for patient status post cholecystectomy. 3. Dystrophic calcification involving the right lobe of the liver. Scott Mittal Jr., MD Chest X-Ray 11/09/16 Signed Impressions: Service Date/Time: Wednesday, November 09, 2016 03:36 - CONCLUSION: Mild improvement in the bilateral interstitial infiltrates. Roland Maier MD Thoracic Spine MRI 11/07/16 0000 Signed Impressions: Service Date/Time: Monday, November 07, 2016 10:23 - CONCLUSION: 1. There is a fracture of the T1 vertebral body and T5 vertebral body. No significant height loss is present and there is no retropulsion of any fracture fragment. No canal stenosis is present. 2. Please refer to today's chest CT examination report for description of the pulmonary findings. Jimmy Lara MD Renal Ultrasound 11/06/16 0000 Signed Impressions: Service Date/Time: Sunday, November 06, 2016 22:24 - CONCLUSION: Probable complicated cyst midpole left kidney measuring 2.0 cm. Otherwise negative exam. No evidence of hydronephrosis. Scott Cantor MD Chest CT 1/20/17 0000 Signed Impressions: Service Date/Time: Monday, November 07, 2016 10:50 - CONCLUSION: Severe diffuse geographic areas of groundglass attenuation bilaterally with trace bilateral pleural effusions. The pattern is nonspecific but can be seen with infection and ARDS among other etiologies. Jimmy Lara MD Head CT 11/04/166 Signed Impressions: Service Date/Time: Friday, November 04, 2016 23:45 - CONCLUSION: No acute intracranial findings. Jimmy Felton MD Abdomen/Pelvis CT 11/04/16 0000 Signed Impressions: Service Date/Time: Friday, November 04, 2016 23:48 - CONCLUSION: Markedly dilated urinary bladder with mild-moderate bilateral hydronephrosis Jimmy Felton MD Last Impressions Chest X-Ray 11/07/16 0600 Signed Impressions: Service Date/Time: Monday, November 07, 2016 05:03 - CONCLUSION: Persistent and stable bilateral air space opacities in the medial lungs. Scott Cantor MD Thoracic Spine MRI 11/07/16 0000 Signed Impressions: Service Date/Time: Monday, November 07, 2016 10:23 - CONCLUSION: 1. There is a fracture of the T1 vertebral body and T5 vertebral body. No significant height loss is present and there is no retropulsion of any fracture fragment. No canal stenosis is present. 2. Please refer to today's chest CT examination report for description of the pulmonary findings. Jimmy Lara MD Renal Ultrasound 11/06/16 0000 Signed Impressions: Service Date/Time: Sunday, November 06, 2016 22:24 - CONCLUSION: Probable complicated cyst midpole left kidney measuring 2.0 cm. Otherwise negative exam. No evidence of hydronephrosis. Scott Cantor MD Chest CT 11/06/16 0000 Signed Impressions: Service Date/Time: Monday, November 07, 2016 10:50 - CONCLUSION: Severe diffuse geographic areas of groundglass attenuation bilaterally with trace bilateral pleural effusions. The pattern is nonspecific but can be seen with infection and ARDS among other etiologies. Jimmy Lara MD Head CT 11/04/166 Signed Impressions: Service Date/Time: Friday, November 04, 2016 23:45 - CONCLUSION: No acute intracranial findings. Jimmy Felton MD Abdomen/Pelvis CT 11/04/16 0000 Signed Impressions: Service Date/Time: Friday, November 04, 2016 23:48 - CONCLUSION: Markedly dilated urinary bladder with mild-moderate bilateral hydronephrosis Jimmy Felton MD Objective Remarks Drips: Fentanyl 125 g per hour GENERAL: Patient is 71 yo awake and alert, following commands. SKIN: Warm and dry. HEAD: Normocephalic. EYES: No scleral icterus. No injection or drainage. NECK: Supple, trachea midline. No JVD or lymphadenopathy. [place] J C-collar in place CARDIOVASCULAR: Regular rate and rhythm without murmurs, gallops, or rubs. RESPIRATORY: Breath sounds equal bilaterally with coarse BS bibasilar. GASTROINTESTINAL: Abdomen soft, non-tender, nondistended. OGT tube feeds infusing at goal rate. bowel sounds presetn. MUSCULOSKELETAL: No cyanosis, 1-2+ edema, all extremities Neuro: Awake , makes eye contact and follows commands with all extremities. A/P Assessment and Plan NEURO: Acute metabolic encephalopathy, improved C7-T1 fracture (T1 vertebral body comminuted fracture, bilateral C7 pedicle fracture extending to the right facet. Remote history of anterior C6-C7 and C4-C5 fusion with plate placement. Pain Pain control -multimodal pain therapy-Roxicodone scheduled every 6 hours, hydrocodone prn. Tramadol every 6 hours prn is ordered as well but not utilized. -Maintaining RASS -2. -CT head negative for acute findings. - 11/07 MRI spine:Fracture of the T1 vertebral body and T5 vertebral body. - wellbutrin 150 bid, xanax 0.5 bid RESP: Acute hypoxemic respiratory failure Pulmonary fibrosis/COPD exacerbation History of asthma Probable HCAP -Glidescope intubation 1 attempt 11/06 (Dr. Marquez) -Continue with vent support keep sat >92%. On ACV RR 16, TV 450, PEEP5, FIO2.50% -Bronchodilators, -Continue Solumedrol 20 mg IV every [address] Escalera -home med on hold: Spiriva 18 mcg inhaled daily<Singulair 10 po hs Budesonide 0.5 neb q12. -ICU vent bundle, pulm is following-Dr. Escalera -CT chest showed diffuse GGO b/l -Sputum culture11/08 -budding yeast with pseudohyphae -Sputum Culture 11/09-Rare gram negative robin - Continue CPAP trials. F/u repeat CXR. -Respiratory status appears to have improved somewhat with diuresis, so will continue lasix diuresis 40 IV q12 in effort to achieve extubation to Bipap. . -Discussed with , holding off on initiation of Xolair at this time due to concern for infection. CVS A Flutter with RVR Fluid overload -Monitor HR and BP keep MAP>65mmHg. On Cardizem 60mg QID, Metoprolol 25mg BID -Echo showed EF 45-50%, diffuse hypokinesis, cardiology is following, Dr. Barrera -Troponin negative -Off esmolol GI: Constipation-resolved -Elevated LFT's, check US liver-no acute abnormality .dystrophic calcification right lobe, common bile duct within normal limits - IV Protonix for GI prophylaxis -On TF-Glucerna 1.5 @, change to goal rate 50 L per hour per nutrition recommendations. -Was having diarrhea on prior bowel regimen. Continue MiraLAX which is a home medication. fEN/RENAL: Hydronephrosis from urinary retention/obstruction Hypernatremia -Monitor renal function , I/O's, -Continue free water flushes to 300 cc every 6 BUN elevation may in part be secondary to steroids. -Lasix as per above. -Renal US: Probable complicated cyst midpole left kidney measuring 2.0 cm. No evidence of hydronephrosis. ID: Healthcare associated pneumonia Sepsis Persistent fevers Leukocytosis - (thromobphlebitis vs steroids vs infectious) -Acetaminophen 650mg for temp greater than 101.0 -Sputum culture11/08 -budding yeast with pseudohyphae -Sputum Culture 11/09-Rare gram negative robin -Blood cultures11/08- NGTD -Abx per ID, Dr. Phan, management of antibiotic regimen (vancomycin, azithromycin, fluconazole). -Ordered C diff but now no further BMs. Pancultured 11/14, pending Microbiology: 11/05blood culture 2 setsno growth today 11/07blood cultureno growth today 11/08blood culture 2 setsno growth today 11/09pending culturenegative 11/14blood culture 2 sets pending 11/14sputum culturepending 11/14urinalysis without evidence of infection. -US11/12 bilateral upper and lower extremities-superficial nonocclusive thrombus right cephalic vein HEME: -Monitor CBC, CMP ENDO: Hypokalemia Hyperglycemia of critical illness -Electrolyte replacement per protocol. Sliding scale insulin if needed -On [place] Thyroid 90mg daily, TSH: 0.123 -Glucose monitoring every 6 hours per ICU protocol -Sliding-scale insulin MSK: -PT-functional maintenance daily - Multi-Podus boots PROPH: -Bilateral lower extremity SCDs. Subcutaneous heparin 5000 q8 for DVT prophylaxis. IV Protonix for GI prophylaxis LINES: -Utilize peripheral IVs. No invasive lines. This patient remains critically ill with one or more organ systems which are or may become a threat to life. I have spent in excess of 35 minutes discontinuously in the care and management of this patient. This time is exclusive of procedures, and includes, but is not limited to, evaluation of the patient, review of the medical record, discussions with family, consultants, nursing staff, or respiratory therapy, and documentation in the medical record. Discussed with FRONT FACER at bedside and Dr. Rodríguez(). Discussed with Dr. Escalera. Shanthi Norton MD Nov 15, 2016 09:51
[2016-11-15] MEDS: POLYETHYLENE GLYCOL 17 GM PKG PO SCH ×2 (10:02→20:04)
[2016-11-15] MEDS: SENNOSIDES 8.6 MG TAB PO SCH (10:02)
[2016-11-15] MEDS: METOPROLOL TARTRATE 25 MG TAB PO SCH ×2 (10:02→20:03)
[2016-11-15] MEDS: buPROPion HCL 100 MG TAB PO SCH ×2 (10:02→20:03)
[2016-11-15] MEDS: DOCUSATE SODIUM 100 MG CAP PO SCH ×2 (10:02→20:04)
[2016-11-15] MEDS: CETIRIZINE HCL SYRUP 10 MG/10 ML UDC TUBE SCH (10:02)
[2016-11-15] MEDS: SODIUM CHLORIDE 0.9% FLUSH 5 ML FLUSH FLUSH SCH ×2 (10:03→19:29)
[2016-11-15] MEDS: VANCOMYCIN INJ 1,750 MG in SODIUM CHLORID 0.9% 500 ML INJ 500 ML IV SCH (10:06)
--- NOTE | 2016-11-15 11:20 | RADRPT ---
EXAM DATE/TIME: 11/15/2016 11:02 [facility] COMPARISON: CHEST SINGLE AP, November 14, 2016, 18:06. INDICATIONS : Respiratory failure. MEDICAL HISTORY : Hypertension. Cardiovascular disease. Pulmonary fibrosis. SURGICAL HISTORY : Breast reduction. Spinal fusion. ENCOUNTER: Subsequent ACUITY: 2 weeks PAIN SCORE: Non-responsive. LOCATION: Bilateral chest FINDINGS: The support devices remain in place. There is no pneumothorax. There continue to be scattered bilater al pulmonary infiltrates about the same compared to the prior exam. The heart size is stable. No defi nite pleural effusions. The bony structures are stable. CONCLUSION: No significant interval change. Roland Maier MD on November 15, 2016 at 11:18 Board Certified Radiologist. This report was verified electronically.
[2016-11-15] MEDS: FLUCONAZOLE 200 MG PREMIX BAG 100 ML IV SCH (12:15)
[2016-11-15] MEDS: CHLORHEXIDINE 0.12% (ORAL KIT) 15 ML CUP MT SCH ×2 (12:17→19:30)
[2016-11-15] MEDS: AZITHROMYCIN SUSP 200 MG/5 ML 15 ML BTL PO SCH (12:28)
[2016-11-15] MEDS ORDERED: FUROSEMIDE 40 MG/4 ML VIAL IV PUSH ONE (14:00)
[2016-11-15] MEDS: PANTOPRAZOLE SODIUM 40 MG VIAL IV PUSH SCH (14:01)
[2016-11-15] MEDS: ESTRADIOL 0.1 MG/24 HR PATCH TD SCH (15:02)
[2016-11-15] MEDS: MONTELUKAST SODIUM 10 MG TAB PO SCH (19:59)
[2016-11-15] MEDS: fentaNYL DRIP 250 ML IV SCH (20:23)
[2016-11-15] MEDS: ACETAMINOPHEN/HYDROcodone 325 MG/10 MG TAB PO PRN (21:12)
[2016-11-15] MEDS: ALPRAZolam 0.5 MG TAB PO PRN (21:12)
[2016-11-16] VITALS (20 sets, daily range): BP systolic 111–167; BP diastolic 60–78; PULSE 61–79; RESP 16–30; TEMP 98.6–99.9; O2SAT 89–100
[2016-11-16] MEDS: RESP: ALBUTEROL 2.5 MG/IPRATROPIUM 0.5 MG NEB (SCH) NEB ×6 (00:41→20:22)
[2016-11-16] MEDS: methylPREDNISolone SOD SUCC 40 MG/1 ML VIAL IV SCH ×2 (01:14→14:00)
[2016-11-16] MEDS: HIGH DOSE INSULIN NOVOLOG SUPPLEMENTAL SCALE SQ SCH ×5 (03:00→22:57)
[2016-11-16] MEDS: FREE WATER G-TUBE SCH ×4 (05:50→22:58)
[2016-11-16] MEDS: THYROID 30 MG TAB PO SCH (05:50)
[2016-11-16] MEDS: DILTIAZEM HCL 60 MG TAB PO SCH ×4 (05:50→22:57)
[2016-11-16] MEDS: FUROSEMIDE 40 MG/4 ML VIAL IV PUSH SCH ×2 (05:50→17:35)
[2016-11-16] MEDS: HEPARIN SODIUM - SQ 10,000 UNITS/ML VIAL SQ SCH ×3 (05:50→21:00)
[2016-11-16] MEDS: RESP: BUDESONIDE 0.5 MG/2 ML NEB NEB SCH ×2 (08:01→20:22)
[2016-11-16 08:28] LABS: AUTOMATED NEUTROPHIL # 21.6 TH/MM3 (1.8-7.7); BASOPHIL # 0.1 TH/MM3 (0-0.2); BASOPHIL % 0.4 % (0.0-2.0); EOSINOPHIL % 0.1 % (0.0-4.0); HEMATOCRIT 35.2 % (35.0-46.0); LYMPH % 2.9 % (9.0-44.0); LYMPHOCYTE # 0.7 TH/MM3 (1.0-4.8); MEAN CELL VOLUME 97.3 FL (80.0-100.0); MEAN CORPUSCULAR HEMOGLOBIN 32.6 PG (27.0-34.0); MEAN CORPUSCULAR HGB CONC 33.5 % (32.0-36.0); MONO % 1.3 % (0.0-8.0); NEUT % 95.3 % (16.0-70.0); PLATELET COUNT 258 TH/MM3 (150-450); RED BLOOD COUNT 3.62 MIL/MM3 (4.00-5.30); RED CELL DISTRIBUTION WIDTH 14.2 % (11.6-17.2); WHITE BLOOD COUNT 22.7 TH/MM3 (4.0-11.0)
[2016-11-16 08:38] LABS: HEMO FLAGS AUTO DIFF
[2016-11-16] MEDS: LEVOCETIRIZINE 5 MG PO SCH (09:00)
[2016-11-16] MEDS: TIOTROPIUM BROMIDE 18 MCG INH INH SCH (09:00)
[2016-11-16 09:09] LABS: BLOOD GAS BASE EXCESS 11.4 mmol/L (-2-2); BLOOD GAS CARBOXYHEMOGLOBIN 1.4 % (0-4); BLOOD GAS HCO3 36 mmol/L (22-26); BLOOD GAS METHEMOGLOBIN 1.1 % (0-2); BLOOD GAS O2 HGB SATURATION 89 % (90-100); BLOOD GAS OXYGEN CONTENT 14.9 Vol % (12.0-20.0); BLOOD GAS PCO2 50 mmHg (38-42); BLOOD GAS PO2 66 mmHg (61-120); BLOOD GAS TOTAL HGB 11.9 G/DL (12.0-16.0); TEMP CORR TO 98.6
[2016-11-16 09:11] LABS: CRITICAL VALUE YES; DRAW SITE RT RADIAL; FIO2 55 %; NUMBER OF ARTERIAL PUNCTURES 1; OXYGEN DEVICE VENTILATOR; STAT NO; ULNAR PULSE PRESENT; VENT SETTINGS CPAP8/PS10
[2016-11-16 09:22] LABS: BICARBONATE 37.4 MEQ/L (21.0-32.0); MAGNESIUM 2.4 MG/DL (1.5-2.5); POTASSIUM 4.4 MEQ/L (3.5-5.1)
[2016-11-16 09:25] LABS: SCAN/DIFF AUTO DIFF CONFIRMED; STOMATOCYTES 1+ (NORMAL)
[2016-11-16] MEDS ORDERED: PHARMACY ORDERED LAB XX ONE (09:45)
[2016-11-16] MEDS: CETIRIZINE HCL SYRUP 10 MG/10 ML UDC TUBE SCH (09:51)
[2016-11-16] MEDS: METOPROLOL TARTRATE 25 MG TAB PO SCH ×2 (09:51→21:01)
[2016-11-16] MEDS: buPROPion HCL 100 MG TAB PO SCH ×2 (09:51→21:00)
[2016-11-16] MEDS: POLYETHYLENE GLYCOL 17 GM PKG PO SCH ×2 (09:52→21:00)
[2016-11-16] MEDS: SODIUM CHLORIDE 0.9% FLUSH 5 ML FLUSH FLUSH SCH ×2 (09:52→21:01)
[2016-11-16] MEDS: VANCOMYCIN INJ 1,750 MG in SODIUM CHLORID 0.9% 500 ML INJ 500 ML IV SCH (09:52)
[2016-11-16] MEDS: DOCUSATE SODIUM 100 MG CAP PO SCH ×2 (09:52→21:01)
[2016-11-16] MEDS: CHLORHEXIDINE 0.12% (ORAL KIT) 15 ML CUP MT SCH ×2 (09:54→20:00)
--- NOTE | 2016-11-16 10:18 | HHI.CCPN ---
Subjective Remarks/Hospital Course Patient is a 71-year-old female with history of pulmonary fibrosis, asthma, probable COPD on home oxygen who had a recent fall at home and sustained C7/ T1 fractures. She was evaluated by neurosurgery and conservatively managed and placed in a cervical collar. She was discharged home on 11/04/16. The pt developed inability to ambulate at home and also had urinary retention. Patient 's also noticed that she had been more confused. ER workup included a CT of the head which was negative, CT of the abdomen pelvis showed markedly distended bladder with mild to moderate hydronephrosis. Sanders catheter was inserted. Chest x-ray showed increasing bilateral infiltrates. Patient was admitted to the hospitalist service, on broad-spectrum antibiotics with Zosyn and vancomycin, breathing treatments. Neurology Dr. Xiong was also consulted Today was noted to have increasing shortness of breath today, tachypnea and hypoxia requiring a partial nonrebreather. Also noted to have A flutter with rapid ventricular response. Cardizem boluses 2 was given on Cardizem infusion was started. Because of her worsening respiratory failure patient was moved to the ICU. Critical care medicine consulted and I immediately evaluated the patient. She is in moderate distress on partial nonrebreather breathing 35-40/ m. Chest exam shows bilateral crackles and wheezes. I have added Solu-Medrol and scheduled breathing treatments and ordered BiPAP 10 over 5. I explained to the patient and the that patient may need endotracheal intubation and mechanical ventilation if she is not improving with BiPAP. 11/07 Patient is sedated with Diprivan and intubated. Afebrile. On Cardizem drip 5mg/hr, for MRI spine and CT thorax today. 11/08 Patient is sedated with Fentnayl and intubated. Afebrile. Renal function worse today with Cr: 1.65 from 1.15 11/09 Tmax 102.2. The patient's sputum culture grew preliminarily budding yeast with pseudohyphae. Diflucan initiated yesterday white count trending down. Lasix discontinued yesterday secondary to elevated creatinine level. 11/10 Afebrile. Able to wean oxygenation to FiO2 of 40% today. CPAP trials plan for today. The patient was noted to be hypernatremic free water flushes were added to her tube feedings. Creatinine slightly improved today. PT consulted Functional maintenance with specific requirements to be referred to neurosurgery for restrictions of any type of activities regarding functional maintenance. 11/11 Tmax 101.7. Patient continues to have persistent fevers, on antibiotic therapy, ID consulted,Dr Phan, appreciate recommendations. The patient has elevations in heart rate with activity/movement, received 2 doses of metoprolol with some diminution, from 160 to 90's yesterday. Overnight the patient's heart rate remained in the 120's. CPAP trials were initiated yesterday the patient was able to maintain the trial for approximately 4 hours. 11/12 Persistent fever last 24 hours, patient placed on a cooling blanket. Antibiotics adjusted per ID, Dr. Phan. Ultrasound Doppler obtained bilateral upper and lower extremities results superficial thrombus white distal cephalic vein. The patient was maintained on CPAP approximately 9 hours yesterday. Fentanyl infusion resumed today, patient complained of pain. Scheduled by mouth narcotics initiated. 11/13 CPAP trials lasted 11 hours. Patient continues to have fevers on a cooling blanket, Dr. Phan managing antibiotic regimen. Patient can continuously complain of pain, scheduled pain meds multimodal therapy approach initiated. 11/14 Was on CPAP 10/8 FiO2 55% for several hours and then terminated due to desaturation. WBC up to 22.9 without fever. No significant respiratory secretions. Had diarrhea yesterday but now RN reports no BM today after holding bowel regimen. Abdomen benign and tolerating tube feeds. Check for C diff if has a loose stool. Panculture sent. updated at bedside. Has no invasive lines. Subjective: 11/15 Diuresed net negative 1 L last shift following lasix. Creatinine downtrend to 1.19. Sodium down to 150. Received 6 am dose of Lasix. FiO2 weaned to 45%. WBC down 17. Afebrile. Placed on CPAP 5/5 and TV 550 and RSBI 30s. Sats 89-92% on 50%. 11/16 Tmax in 100.1. The patient continues today on CPAP trial PaO2 65 on FiO2 of 55%. The patient has been diuresed over the last several days, sodium is down trending now 145 tube feeds are off, will plan for a trial of extubation. As discussed with the Dr. Reyes that the patient possibly will need tracheostomy. Dr. Aguilera consulted for possible tracheostomy. Objective Vital Signs Date Time Temp Pulse Resp B/P Pulse Ox O2 Delivery O2 Flow Rate FiO2 11/16/16 08:02 93 55 11/16/16 08:00 Mechanical Ventilator 11/16/16 08:00 73 11/16/16 08:00 99.1 24 152/78 11/15/16 19:32 10.00 Intake and Output 11/15/16 11/15/16 11/16/16 08:00 16:00 00:00 Intake Total 1215 ml 1466 ml 692 ml Output Total 1500.0 ml 1000.0 ml 4300 ml Balance -285.0 ml 466.0 ml -3608 ml Result Diagram: 11/16/16 0811/16/16823 Other Results Laboratory Tests Test 11/16/16 08:55 Blood Gas Puncture Site RT RADIAL Blood Gas Patient Temperature 98.6 Blood Gas HCO3 36 mmol/L (22-26) Blood Gas Base Excess 11.4 mmol/L (-2-2) Blood Gas Oxygen Saturation 89 % (90-100) Arterial Blood pH 7.47 (7.380-7.420) Arterial Blood Partial 50 mmHg (38-42) Pressure CO2 Arterial Blood Partial 66 mmHg Pressure O2 (61-120) Arterial Blood Oxygen Content 14.9 Vol % (12.0-20.0) Arterial Blood 1.4 % (0-4) Carboxyhemoglobin Arterial Blood Methemoglobin 1.1 % (0-2) Blood Gas Hemoglobin 11.9 G/DL (12.0-16.0) Oxygen Delivery Device VENTILATOR Blood Gas Ventilator Setting CPAP8/PS10 Blood Gas Inspired Oxygen 55 % Imaging Last Impressions Chest X-Ray 11/15/16 0000 Signed Impressions: Service Date/Time: Tuesday, November 15, 2016 11:02 - CONCLUSION: No significant interval change. Roland Maier MD Upper Extremity Ultrasound 11/11/16 0000 Signed Impressions: Service Date/Time: Friday, November 11, 2016 21:51 - CONCLUSION: 1. No evidence of DVT. 2. Focal superficial thrombosis involving the distal right cephalic vein. Roland Maier MD Lower Extremity Ultrasound 11/11/16 0000 Signed Impressions: Service Date/Time: Friday, November 11, 2016 21:22 - CONCLUSION: Negative exam with no evidence of deep venous thrombosis. Rex Corcoran MD Liver Ultrasound 11/09/16 0000 Signed Impressions: Service Date/Time: Wednesday, November 09, 2016 08:03 - CONCLUSION: 1. No acute abnormality. 2. Prior cholecystectomy. Common bile duct is within the normal range in terms of size for patient status post cholecystectomy. 3. Dystrophic calcification involving the right lobe of the liver. Scott Mittal Jr., MD Thoracic Spine MRI 11/07/16 0000 Signed Impressions: Service Date/Time: Monday, November 07, 2016 10:23 - CONCLUSION: 1. There is a fracture of the T1 vertebral body and T5 vertebral body. No significant height loss is present and there is no retropulsion of any fracture fragment. No canal stenosis is present. 2. Please refer to today's chest CT examination report for description of the pulmonary findings. Jimmy Lara MD Renal Ultrasound 11/06/16 0000 Signed Impressions: Service Date/Time: Sunday, November 06, 2016 22:24 - CONCLUSION: Probable complicated cyst midpole left kidney measuring 2.0 cm. Otherwise negative exam. No evidence of hydronephrosis. Scott Cantor MD Chest CT 11/06/16 0000 Signed Impressions: Service Date/Time: Monday, November 07, 2016 10:50 - CONCLUSION: Severe diffuse geographic areas of groundglass attenuation bilaterally with trace bilateral pleural effusions. The pattern is nonspecific but can be seen with infection and ARDS among other etiologies. Jimmy Lara MD Head CT 11/04/16 2326 Signed Impressions: Service Date/Time: Friday, November 04, 2016 23:45 - CONCLUSION: No acute intracranial findings. Jimmy Felton MD Abdomen/Pelvis CT 11/04/16 0000 Signed Impressions: Service Date/Time: Friday, November 04, 2016 23:48 - CONCLUSION: Markedly dilated urinary bladder with mild-moderate bilateral hydronephrosis Jimmy Felton MD Last Impressions Chest X-Ray 11/12/16 0600 Signed Impressions: Service Date/Time: October 02:40 - CONCLUSION: No significant interval change. Roland Maier MD Upper Extremity Ultrasound 11/11/16 0000 Signed Impressions: Service Date/Time: Friday, November 11, 2016 21:51 - CONCLUSION: 1. No evidence of DVT. 2. Focal superficial thrombosis involving the distal right cephalic vein. Roland Maier MD Lower Extremity Ultrasound 11/11/16 0000 Signed Impressions: Service Date/Time: Friday, November 11, 2016 21:22 - CONCLUSION: Negative exam with no evidence of deep venous thrombosis. Rex Corcoran MD Liver Ultrasound 11/09/16 0000 Signed Impressions: Service Date/Time: Wednesday, November 09, 2016 08:03 - CONCLUSION: 1. No acute abnormality. 2. Prior cholecystectomy. Common bile duct is within the normal range in terms of size for patient status post cholecystectomy. 3. Dystrophic calcification involving the right lobe of the liver. Scott Mittal Jr., MD Thoracic Spine MRI 11/07/16 0000 Signed Impressions: Service Date/Time: Monday, November 07, 2016 10:23 - CONCLUSION: 1. There is a fracture of the T1 vertebral body and T5 vertebral body. No significant height loss is present and there is no retropulsion of any fracture fragment. No canal stenosis is present. 2. Please refer to today's chest CT examination report for description of the pulmonary findings. Jimmy Lara MD Renal Ultrasound 11/06/16 0000 Signed Impressions: Service Date/Time: Sunday, November 06, 2016 22:24 - CONCLUSION: Probable complicated cyst midpole left kidney measuring 2.0 cm. Otherwise negative exam. No evidence of hydronephrosis. Scott Cantor MD Chest CT 11/06/16 0000 Signed Impressions: Service Date/Time: Monday, November 07, 2016 10:50 - CONCLUSION: Severe diffuse geographic areas of groundglass attenuation bilaterally with trace bilateral pleural effusions. The pattern is nonspecific but can be seen with infection and ARDS among other etiologies. Jimmy Lara MD Head CT 11/04/16 [id number] Signed Impressions: Service Date/Time: Friday, November 04, 2016 23:45 - CONCLUSION: No acute intracranial findings. Jimmy Felton MD Abdomen/Pelvis CT 11/04/16 0000 Signed Impressions: Service Date/Time: Friday, November 04, 2016 23:48 - CONCLUSION: Markedly dilated urinary bladder with mild-moderate bilateral hydronephrosis Jimmy Felton MD Last Impressions Chest X-Ray 11/12/16 0600 Signed Impressions: Service Date/Time: October 02:40 - CONCLUSION: No significant interval change. Roland Maier MD Upper Extremity Ultrasound 11/11/16 0000 Signed Impressions: Service Date/Time: Friday, November 11, 2016 21:51 - CONCLUSION: 1. No evidence of DVT. 2. Focal superficial thrombosis involving the distal right cephalic vein. Roland Maier MD Lower Extremity Ultrasound 11/11/16 0000 Signed Impressions: Service Date/Time: Friday, November 11, 2016 21:22 - CONCLUSION: Negative exam with no evidence of deep venous thrombosis. Rex Corcoran MD Liver Ultrasound 11/09/16 0000 Signed Impressions: Service Date/Time: Wednesday, November 09, 2016 08:03 - CONCLUSION: 1. No acute abnormality. 2. Prior cholecystectomy. Common bile duct is within the normal range in terms of size for patient status post cholecystectomy. 3. Dystrophic calcification involving the right lobe of the liver. Scott Mittal Jr., MD Thoracic Spine MRI 11/07/16 0000 Signed Impressions: Service Date/Time: Monday, November 07, 2016 10:23 - CONCLUSION: 1. There is a fracture of the T1 vertebral body and T5 vertebral body. No significant height loss is present and there is no retropulsion of any fracture fragment. No canal stenosis is present. 2. Please refer to today's chest CT examination report for description of the pulmonary findings. Jimmy Lara MD Renal Ultrasound 11/06/16 0000 Signed Impressions: Service Date/Time: Sunday, November 06, 2016 22:24 - CONCLUSION: Probable complicated cyst midpole left kidney measuring 2.0 cm. Otherwise negative exam. No evidence of hydronephrosis. Scott Cantor MD Chest CT 11/06/16 0000 Signed Impressions: Service Date/Time: Monday, November 07, 2016 10:50 - CONCLUSION: Severe diffuse geographic areas of groundglass attenuation bilaterally with trace bilateral pleural effusions. The pattern is nonspecific but can be seen with infection and ARDS among other etiologies. Jimmy Lara MD Head CT 11/04/16 [id number] Signed Impressions: Service Date/Time: Friday, November 04, 2016 23:45 - CONCLUSION: No acute intracranial findings. Jimmy Felton MD Abdomen/Pelvis CT 11/04/16 0000 Signed Impressions: Service Date/Time: Friday, November 04, 2016 23:48 - CONCLUSION: Markedly dilated urinary bladder with mild-moderate bilateral hydronephrosis Jimmy Felton MD Last Impressions Liver Ultrasound 11/09/16 0000 Signed Impressions: Service Date/Time: Wednesday, November 09, 2016 08:03 - CONCLUSION: 1. No acute abnormality. 2. Prior cholecystectomy. Common bile duct is within the normal range in terms of size for patient status post cholecystectomy. 3. Dystrophic calcification involving the right lobe of the liver. Scott Mittal Jr., MD Chest X-Ray 11/09/16 0000 Signed Impressions: Service Date/Time: Wednesday, November 09, 2016 03:36 - CONCLUSION: Mild improvement in the bilateral interstitial infiltrates. Roland Maier MD Thoracic Spine MRI 11/07/16 0000 Signed Impressions: Service Date/Time: Monday, November 07, 2016 10:23 - CONCLUSION: 1. There is a fracture of the T1 vertebral body and T5 vertebral body. No significant height loss is present and there is no retropulsion of any fracture fragment. No canal stenosis is present. 2. Please refer to today's chest CT examination report for description of the pulmonary findings. Jimmy Lara MD Renal Ultrasound 11/06/16 0000 Signed Impressions: Service Date/Time: Sunday, November 06, 2016 22:24 - CONCLUSION: Probable complicated cyst midpole left kidney measuring 2.0 cm. Otherwise negative exam. No evidence of hydronephrosis. Scott Cantor MD Chest CT 11/06/16 0000 Signed Impressions: Service Date/Time: Monday, November 07, 2016 10:50 - CONCLUSION: Severe diffuse geographic areas of groundglass attenuation bilaterally with trace bilateral pleural effusions. The pattern is nonspecific but can be seen with infection and ARDS among other etiologies. Jimmy Lara MD Head CT 11/04/16 2326 Signed Impressions: Service Date/Time: Friday, November 04, 2016 23:45 - CONCLUSION: No acute intracranial findings. Jimmy Felton MD Abdomen/Pelvis CT 11/04/16 0000 Signed Impressions: Service Date/Time: Friday, November 04, 2016 23:48 - CONCLUSION: Markedly dilated urinary bladder with mild-moderate bilateral hydronephrosis Jimmy Felton MD Last Impressions Chest X-Ray 11/07/16 0600 Signed Impressions: Service Date/Time: Monday, November 07, 2016 05:03 - CONCLUSION: Persistent and stable bilateral air space opacities in the medial lungs. Scott Cantor MD Thoracic Spine MRI 11/07/16 0000 Signed Impressions: Service Date/Time: Monday, November 07, 2016 10:23 - CONCLUSION: 1. There is a fracture of the T1 vertebral body and T5 vertebral body. No significant height loss is present and there is no retropulsion of any fracture fragment. No canal stenosis is present. 2. Please refer to today's chest CT examination report for description of the pulmonary findings. Jimmy Lara MD Renal Ultrasound 11/06/16 0000 Signed Impressions: Service Date/Time: Sunday, November 06, 2016 22:24 - CONCLUSION: Probable complicated cyst midpole left kidney measuring 2.0 cm. Otherwise negative exam. No evidence of hydronephrosis. Scott Cantor MD Chest CT 11/06/16 0000 Signed Impressions: Service Date/Time: Monday, November 07, 2016 10:50 - CONCLUSION: Severe diffuse geographic areas of groundglass attenuation bilaterally with trace bilateral pleural effusions. The pattern is nonspecific but can be seen with infection and ARDS among other etiologies. Jimmy Lara MD Head CT 11/04/16 2326 Signed Impressions: Service Date/Time: Friday, November 04, 2016 23:45 - CONCLUSION: No acute intracranial findings. Jimmy Felton MD Abdomen/Pelvis CT 11/04/16 0000 Signed Impressions: Service Date/Time: Friday, November 04, 2016 23:48 - CONCLUSION: Markedly dilated urinary bladder with mild-moderate bilateral hydronephrosis Jimmy Felton MD Objective Remarks Drips: Fentanyl 125 g per hour GENERAL: Patient is 71 yo awake and alert, following commands. Fentanyl infusion off. SKIN: Warm and dry. HEAD: Normocephalic. EYES: No scleral icterus. No injection or drainage. NECK: Supple, trachea midline. No JVD or lymphadenopathy. [place] J C-collar in place CARDIOVASCULAR: Regular rate and rhythm without murmurs, gallops, or rubs. RESPIRATORY: Breath sounds equal bilaterally with coarse BS bibasilar. GASTROINTESTINAL: Abdomen soft, non-tender, nondistended. OGT tube feeds on hold for trial of extubation. bowel sounds presenet MUSCULOSKELETAL: No cyanosis, 1-2+ edema, all extremities Neuro: Awake , makes eye contact and follows commands with all extremities. Urinary Catheter: Yes Sanders insert reason: ICU Pt Getting Diuretics Vascular Central Line Catheter: No A/P Assessment and Plan NEURO: Acute metabolic encephalopathy, improved C7-T1 fracture (T1 vertebral body comminuted fracture, bilateral C7 pedicle fracture extending to the right facet. Remote history of anterior C6-C7 and C4-C5 fusion with plate placement. Pain Pain control -multimodal pain therapy-Roxicodone scheduled every 6 hours, hydrocodone prn. Tramadol every 6 hours prn is ordered as well but not utilized. Fentanyl infusion currently off. -Maintaining RASS -2. -CT head negative for acute findings. - 11/07 MRI spine:Fracture of the T1 vertebral body and T5 vertebral body. - Wellbutrin 150 bid, Xanax 0.5 bid RESP: Acute hypoxemic respiratory failure Pulmonary fibrosis/COPD exacerbation History of asthma Probable HCAP -Glidescope intubation 1 attempt 11/06 (Dr. Marquez) -Continue with vent support keep sat >92%. On ACV RR 16, TV 450, PEEP5, FIO2.50% -Bronchodilators, -Continue Solumedrol 20 mg IV every [address] Escalera -home med on hold: Spiriva 18 mcg inhaled daily<Singulair 10 po hs Budesonide 0.5 neb q12. -ICU vent bundle, pulm is following-Dr. Escalera -CT chest showed diffuse GGO b/l -Sputum culture11/08 -budding yeast with pseudohyphae -Sputum Culture 11/09-Rare gram negative robin - Continue CPAP trials. F/u repeat CXR. -Respiratory status appears to have improved somewhat with diuresis, though chest x-ray is unchanged this a.m.. We'll plan for trial of extubation -Discussed with , holding off on initiation of Xolair at this time due to concern for infection. -Discussed with possibility of tracheostomy, which will be done in the OR. CVS A Flutter with RVR Fluid overload -Monitor HR and BP keep MAP>65mmHg. On Cardizem 60mg QID, Metoprolol 25mg BID -Echo showed EF 45-50%, diffuse hypokinesis, cardiology is following, Dr. Barrera -Troponin negative -Esmolol dc'd 11/14 GI: Constipation-resolved -Elevated LFT's, check US liver-no acute abnormality .dystrophic calcification right lobe, common bile duct within normal limits - IV Protonix for GI prophylaxis -On TF-Glucerna 1.5 @, change to goal rate 50 L per hour per nutrition recommendations. -Was having diarrhea on prior bowel regimen. Continue MiraLAX which is a home medication. - FEN/RENAL: Hydronephrosis from urinary retention/obstruction Hypernatremia-resolved -Monitor renal function , I/O's, -Continue free water flushes to 300 cc every 6 - on hold, Na 145 BUN elevation may in part be secondary to steroids. -Lasix as per above. -Renal US: Probable complicated cyst midpole left kidney measuring 2.0 cm. No evidence of hydronephrosis. ID: Healthcare associated pneumonia Sepsis Persistent fevers Leukocytosis - (thromobphlebitis vs steroids vs infectious) -Acetaminophen 650mg for temp greater than 101.0 -Sputum culture11/08 -budding yeast with pseudohyphae -Sputum Culture 11/09-Rare gram negative robin -Blood cultures11/08- NGTD -Abx per ID, Dr. Phan, management of antibiotic regimen (vancomycin, azithromycin, fluconazole). -Ordered C diff but now no further BMs. Pancultured 11/14, pending Microbiology: 11/05blood culture 2 setsno growth today 11/07blood cultureno growth today 11/08blood culture 2 setsno growth today 11/09pending culturenegative 11/14blood culture 2 sets pending 11/14sputum culturepending 11/14urinalysis without evidence of infection. -US11/12 bilateral upper and lower extremities-superficial nonocclusive thrombus right cephalic vein HEME: -Monitor CBC, CMP ENDO: Hypokalemia Hyperglycemia of critical illness -Electrolyte replacement per protocol. Sliding scale insulin if needed -On [place] Thyroid 90mg daily, TSH: 0.123 -Glucose monitoring every 6 hours per ICU protocol -Sliding-scale insulin MSK: -PT-functional maintenance daily - Multi-Podus boots PROPH: -Bilateral lower extremity SCDs. Subcutaneous heparin 5000 q8 for DVT prophylaxis. IV Protonix for GI prophylaxis LINES: -Utilize peripheral IVs. No invasive lines. This patient remains critically ill with one or more organ systems which are or may become a threat to life. I have spent in excess of 41 minutes discontinuously in the care and management of this patient. This time is exclusive of procedures, and includes, but is not limited to, evaluation of the patient, review of the medical record, discussions with family, consultants, nursing staff, or respiratory therapy, and documentation in the medical record. Discussed with [employer] at bedside and Dr. Rodríguez(). We'll perform today a trial of extubation, discussed with and consulted Dr. Aguilera regarding possible tracheostomy. Physician Megha Pastrana MD Nov 16, 2016 10:18
[2016-11-16] MEDS: FLUCONAZOLE 200 MG PREMIX BAG 100 ML IV SCH (11:45)
[2016-11-16] MEDS: PANTOPRAZOLE SODIUM 40 MG VIAL IV PUSH SCH (14:00)
[2016-11-16] MEDS: AZITHROMYCIN SUSP 200 MG/5 ML 15 ML BTL PO SCH (14:01)
[2016-11-16] MEDS: MONTELUKAST SODIUM 10 MG TAB PO SCH (21:00)
[2016-11-16] MEDS: RESP: ALBUTEROL 2.5 MG/IPRATROPIUM 0.5 MG NEB (PRN) NEB (22:16)
[2016-11-17] VITALS (17 sets, daily range): BP systolic 133–169; BP diastolic 67–80; PULSE 56–75; RESP 24–25; TEMP 98.5–99.7; O2SAT 90–94
[2016-11-17] MEDS: RESP: ALBUTEROL 2.5 MG/IPRATROPIUM 0.5 MG NEB (SCH) NEB ×7 (00:13→23:35)
[2016-11-17] MEDS: methylPREDNISolone SOD SUCC 40 MG/1 ML VIAL IV SCH ×2 (02:18→14:01)
[2016-11-17] MEDS: HIGH DOSE INSULIN NOVOLOG SUPPLEMENTAL SCALE SQ SCH ×5 (03:00→21:00)
[2016-11-17 04:49] LABS: AUTOMATED NEUTROPHIL # 19.1 TH/MM3 (1.8-7.7); BASOPHIL % 0.2 % (0.0-2.0); EOSINOPHIL % 0.1 % (0.0-4.0); HEMATOCRIT 34.7 % (35.0-46.0); LYMPH % 4.1 % (9.0-44.0); LYMPHOCYTE # 0.9 TH/MM3 (1.0-4.8); MEAN CELL VOLUME 97.1 FL (80.0-100.0); MEAN CORPUSCULAR HEMOGLOBIN 32.3 PG (27.0-34.0); MEAN CORPUSCULAR HGB CONC 33.2 % (32.0-36.0); MONO % 3.5 % (0.0-8.0); NEUT % 92.1 % (16.0-70.0); PLATELET COUNT 252 TH/MM3 (150-450); RED BLOOD COUNT 3.58 MIL/MM3 (4.00-5.30); RED CELL DISTRIBUTION WIDTH 13.9 % (11.6-17.2); WHITE BLOOD COUNT 20.8 TH/MM3 (4.0-11.0)
[2016-11-17 05:02] LABS: BICARBONATE 37.2 MEQ/L (21.0-32.0); MAGNESIUM 2.1 MG/DL (1.5-2.5); POTASSIUM 3.7 MEQ/L (3.5-5.1)
[2016-11-17 05:16] LABS: HEMO FLAGS AUTO DIFF
[2016-11-17] MEDS: DILTIAZEM HCL 60 MG TAB PO SCH ×4 (05:55→22:49)
[2016-11-17] MEDS: FUROSEMIDE 40 MG/4 ML VIAL IV PUSH SCH ×2 (05:55→17:29)
[2016-11-17] MEDS: HEPARIN SODIUM - SQ 10,000 UNITS/ML VIAL SQ SCH ×3 (05:56→21:10)
[2016-11-17] MEDS: THYROID 30 MG TAB PO SCH (05:56)
[2016-11-17] MEDS: FREE WATER G-TUBE SCH ×2 (05:56→10:56)
[2016-11-17 07:29] LABS: PLATELET ESTIMATE SMEAR NORMAL (NORMAL); PLATELET MORPHOLOGY NORMAL (NORMAL); SCAN/DIFF AUTO DIFF CONFIRMED
[2016-11-17 07:31] LABS: STOMATOCYTES 1+ (NORMAL)
[2016-11-17] MEDS: RESP: BUDESONIDE 0.5 MG/2 ML NEB NEB SCH ×2 (07:51→19:35)
[2016-11-17] MEDS: CHLORHEXIDINE 0.12% (ORAL KIT) 15 ML CUP MT SCH ×2 (08:00→20:00)
[2016-11-17] MEDS: SODIUM CHLORIDE 0.9% FLUSH 5 ML FLUSH FLUSH SCH ×2 (08:02→21:00)
[2016-11-17] MEDS: POLYETHYLENE GLYCOL 17 GM PKG PO SCH ×2 (08:03→21:20)
[2016-11-17] MEDS: DOCUSATE SODIUM 100 MG CAP PO SCH ×2 (08:03→21:00)
[2016-11-17] MEDS: LEVOCETIRIZINE 5 MG PO SCH (08:03)
[2016-11-17] MEDS: TIOTROPIUM BROMIDE 18 MCG INH INH SCH (08:03)
[2016-11-17] MEDS: METOPROLOL TARTRATE 25 MG TAB PO SCH ×2 (09:00→21:00)
[2016-11-17] MEDS: buPROPion HCL 100 MG TAB PO SCH ×2 (09:18→21:10)
[2016-11-17] MEDS: CETIRIZINE HCL SYRUP 10 MG/10 ML UDC TUBE SCH (09:18)
[2016-11-17] MEDS ORDERED: PHARMACY ORDERED LAB XX ONE (09:45)
[2016-11-17] MEDS: VANCOMYCIN INJ 1,750 MG in SODIUM CHLORID 0.9% 500 ML INJ 500 ML IV SCH (10:56)
--- NOTE | 2016-11-17 11:35 | HHI.CCPN ---
Subjective Remarks/Hospital Course Patient is a 71-year-old female with history of pulmonary fibrosis, asthma, probable COPD on home oxygen who had a recent fall at home and sustained C7/ T1 fractures. She was evaluated by neurosurgery and conservatively managed and placed in a cervical collar. She was discharged home on 11/04/16. The pt developed inability to ambulate at home and also had urinary retention. Patient 's also noticed that she had been more confused. ER workup included a CT of the head which was negative, CT of the abdomen pelvis showed markedly distended bladder with mild to moderate hydronephrosis. Sanders catheter was inserted. Chest x-ray showed increasing bilateral infiltrates. Patient was admitted to the hospitalist service, on broad-spectrum antibiotics with Zosyn and vancomycin, breathing treatments. Neurology Dr. Xiong was also consulted Today was noted to have increasing shortness of breath today, tachypnea and hypoxia requiring a partial nonrebreather. Also noted to have A flutter with rapid ventricular response. Cardizem boluses 2 was given on Cardizem infusion was started. Because of her worsening respiratory failure patient was moved to the ICU. Critical care medicine consulted and I immediately evaluated the patient. She is in moderate distress on partial nonrebreather breathing 35-40/ m. Chest exam shows bilateral crackles and wheezes. I have added Solu-Medrol and scheduled breathing treatments and ordered BiPAP 10 over 5. I explained to the patient and the that patient may need endotracheal intubation and mechanical ventilation if she is not improving with BiPAP. 11/07 Patient is sedated with Diprivan and intubated. Afebrile. On Cardizem drip 5mg/hr, for MRI spine and CT thorax today. 11/08 Patient is sedated with Fentnayl and intubated. Afebrile. Renal function worse today with Cr: 1.65 from 1.15 11/09 Tmax 102.2. The patient's sputum culture grew preliminarily budding yeast with pseudohyphae. Diflucan initiated yesterday white count trending down. Lasix discontinued yesterday secondary to elevated creatinine level. 11/10 Afebrile. Able to wean oxygenation to FiO2 of 40% today. CPAP trials plan for today. The patient was noted to be hypernatremic free water flushes were added to her tube feedings. Creatinine slightly improved today. PT consulted Functional maintenance with specific requirements to be referred to neurosurgery for restrictions of any type of activities regarding functional maintenance. 11/11 Tmax 101.7. Patient continues to have persistent fevers, on antibiotic therapy, ID consulted,Dr Phan, appreciate recommendations. The patient has elevations in heart rate with activity/movement, received 2 doses of metoprolol with some diminution, from 160 to 90's yesterday. Overnight the patient's heart rate remained in the 120's. CPAP trials were initiated yesterday the patient was able to maintain the trial for approximately 4 hours. 11/12 Persistent fever last 24 hours, patient placed on a cooling blanket. Antibiotics adjusted per ID, Dr. Phan. Ultrasound Doppler obtained bilateral upper and lower extremities results superficial thrombus white distal cephalic vein. The patient was maintained on CPAP approximately 9 hours yesterday. Fentanyl infusion resumed today, patient complained of pain. Scheduled by mouth narcotics initiated. 11/13 CPAP trials lasted 11 hours. Patient continues to have fevers on a cooling blanket, Dr. Phan managing antibiotic regimen. Patient can continuously complain of pain, scheduled pain meds multimodal therapy approach initiated. 11/14 Was on CPAP 10/8 FiO2 55% for several hours and then terminated due to desaturation. WBC up to 22.9 without fever. No significant respiratory secretions. Had diarrhea yesterday but now RN reports no BM today after holding bowel regimen. Abdomen benign and tolerating tube feeds. Check for C diff if has a loose stool. Panculture sent. updated at bedside. Has no invasive lines. Subjective: 11/15 Diuresed net negative 1 L last shift following lasix. Creatinine downtrend to 1.19. Sodium down to 150. Received 6 am dose of Lasix. FiO2 weaned to 45%. WBC down 17. Afebrile. Placed on CPAP 5/5 and TV 550 and RSBI 30s. Sats 89-92% on 50%. 11/16 Tmax in 100.1. The patient continues today on CPAP trial PaO2 65 on FiO2 of 55%. The patient has been diuresed over the last several days, sodium is down trending now 145 tube feeds are off, will plan for a trial of extubation. As discussed with the Dr. Reyes that the patient possibly will need tracheostomy. Dr. Aguilera consulted for possible tracheostomy. 11/17 Afebrile. The patient was extubated yesterday afternoon .The patient tolerated BiPAP overnight, maintaining O2 sat 9294%, on FiO2 of 50%. Plan to transition to high flow nasal cannula if tolerated. Objective Vital Signs Date Time Temp Pulse Resp B/P Pulse Ox O2 Delivery O2 Flow Rate FiO2 11/17/16 09:42 90 High Flow Nasal Cannula 20.00 60 11/17/16 06:56 22 11/17/16 06:00 75 11/17/16 04:00 99.3 143/71 Intake and Output 11/16/16 11/16/16 11/17/16 08:00 16:00 00:00 Intake Total 1173 ml 1012 ml 74 ml Output Total 1000.0 ml 750.0 ml 1900 ml Balance 173.0 ml 262.0 ml -1826 ml Result Diagram: 11/17/16 0400 11/17/16 0400 Other Results Microbiology Date/Time Procedure Status Source Growth 11/14/16 19:40 Gram Stain - Final Complete Sputum Endotracheal 11/14/16 19:40 Sputum Culture - Final Complete Sputum Endotracheal HEAVY GROWTH NORMAL RESPIRATORY JUNIOR Imaging Last Impressions Chest X-Ray 11/15/16 0000 Signed Impressions: Service Date/Time: Tuesday, November 15, 2016 11:02 - CONCLUSION: No significant interval change. Roland Maier MD Upper Extremity Ultrasound 11/11/16 0000 Signed Impressions: Service Date/Time: Friday, November 11, 2016 21:51 - CONCLUSION: 1. No evidence of DVT. 2. Focal superficial thrombosis involving the distal right cephalic vein. Roland Maier MD Lower Extremity Ultrasound 11/11/16 0000 Signed Impressions: Service Date/Time: Friday, November 11, 2016 21:22 - CONCLUSION: Negative exam with no evidence of deep venous thrombosis. Rex Corcoran MD Liver Ultrasound 11/09/16 0000 Signed Impressions: Service Date/Time: Wednesday, November 09, 2016 08:03 - CONCLUSION: 1. No acute abnormality. 2. Prior cholecystectomy. Common bile duct is within the normal range in terms of size for patient status post cholecystectomy. 3. Dystrophic calcification involving the right lobe of the liver. Scott Mittal Jr., MD Thoracic Spine MRI 11/07/16 0000 Signed Impressions: Service Date/Time: Monday, November 07, 2016 10:23 - CONCLUSION: 1. There is a fracture of the T1 vertebral body and T5 vertebral body. No significant height loss is present and there is no retropulsion of any fracture fragment. No canal stenosis is present. 2. Please refer to today's chest CT examination report for description of the pulmonary findings. Jimmy Lara MD Renal Ultrasound 11/06/16 0000 Signed Impressions: Service Date/Time: Sunday, November 06, 2016 22:24 - CONCLUSION: Probable complicated cyst midpole left kidney measuring 2.0 cm. Otherwise negative exam. No evidence of hydronephrosis. Scott Cantor MD Chest CT 11/06/16 0000 Signed Impressions: Service Date/Time: Monday, November 07, 2016 10:50 - CONCLUSION: Severe diffuse geographic areas of groundglass attenuation bilaterally with trace bilateral pleural effusions. The pattern is nonspecific but can be seen with infection and ARDS among other etiologies. Jimmy Lara MD Head CT 11/04/16 2326 Signed Impressions: Service Date/Time: Friday, November 04, 2016 23:45 - CONCLUSION: No acute intracranial findings. Jimmy Felton MD Abdomen/Pelvis CT 11/04/16 0000 Signed Impressions: Service Date/Time: Friday, November 04, 2016 23:48 - CONCLUSION: Markedly dilated urinary bladder with mild-moderate bilateral hydronephrosis Jimmy Felton MD Last Impressions Chest X-Ray 11/12/16 0600 Signed Impressions: Service Date/Time: October 02:40 - CONCLUSION: No significant interval change. Roland Maier MD Upper Extremity Ultrasound 11/11/16 0000 Signed Impressions: Service Date/Time: Friday, November 11, 2016 21:51 - CONCLUSION: 1. No evidence of DVT. 2. Focal superficial thrombosis involving the distal right cephalic vein. Roland Maier MD Lower Extremity Ultrasound 11/11/16 0000 Signed Impressions: Service Date/Time: Friday, November 11, 2016 21:22 - CONCLUSION: Negative exam with no evidence of deep venous thrombosis. Rex Corcoran MD Liver Ultrasound 11/09/16 0000 Signed Impressions: Service Date/Time: Wednesday, November 09, 2016 08:03 - CONCLUSION: 1. No acute abnormality. 2. Prior cholecystectomy. Common bile duct is within the normal range in terms of size for patient status post cholecystectomy. 3. Dystrophic calcification involving the right lobe of the liver. Scott Mittal Jr., MD Thoracic Spine MRI 11/07/16 0000 Signed Impressions: Service Date/Time: Monday, November 07, 2016 10:23 - CONCLUSION: 1. There is a fracture of the T1 vertebral body and T5 vertebral body. No significant height loss is present and there is no retropulsion of any fracture fragment. No canal stenosis is present. 2. Please refer to today's chest CT examination report for description of the pulmonary findings. Jimmy Lara MD Renal Ultrasound 11/06/16 0000 Signed Impressions: Service Date/Time: Sunday, November 06, 2016 22:24 - CONCLUSION: Probable complicated cyst midpole left kidney measuring 2.0 cm. Otherwise negative exam. No evidence of hydronephrosis. Scott Cantor MD Chest CT 11/06/16 0000 Signed Impressions: Service Date/Time: Monday, November 07, 2016 10:50 - CONCLUSION: Severe diffuse geographic areas of groundglass attenuation bilaterally with trace bilateral pleural effusions. The pattern is nonspecific but can be seen with infection and ARDS among other etiologies. Jimmy Lara MD Head CT 11/04/16 2326 Signed Impressions: Service Date/Time: Friday, November 04, 2016 23:45 - CONCLUSION: No acute intracranial findings. Jimmy Felton MD Abdomen/Pelvis CT 11/04/16 0000 Signed Impressions: Service Date/Time: Friday, November 04, 2016 23:48 - CONCLUSION: Markedly dilated urinary bladder with mild-moderate bilateral hydronephrosis Jimmy Felton MD Last Impressions Chest X-Ray 11/12/16 0600 Signed Impressions: Service Date/Time: October 02:40 - CONCLUSION: No significant interval change. Roland Maier MD Upper Extremity Ultrasound 11/11/16 0000 Signed Impressions: Service Date/Time: Friday, November 11, 2016 21:51 - CONCLUSION: 1. No evidence of DVT. 2. Focal superficial thrombosis involving the distal right cephalic vein. Roland Maier MD Lower Extremity Ultrasound 11/11/16 0000 Signed Impressions: Service Date/Time: Friday, November 11, 2016 21:22 - CONCLUSION: Negative exam with no evidence of deep venous thrombosis. Rex Corcoran MD Liver Ultrasound 11/09/16 0000 Signed Impressions: Service Date/Time: Wednesday, November 09, 2016 08:03 - CONCLUSION: 1. No acute abnormality. 2. Prior cholecystectomy. Common bile duct is within the normal range in terms of size for patient status post cholecystectomy. 3. Dystrophic calcification involving the right lobe of the liver. Scott Mittal Jr., MD Thoracic Spine MRI 11/07/16 0000 Signed Impressions: Service Date/Time: Monday, November 07, 2016 10:23 - CONCLUSION: 1. There is a fracture of the T1 vertebral body and T5 vertebral body. No significant height loss is present and there is no retropulsion of any fracture fragment. No canal stenosis is present. 2. Please refer to today's chest CT examination report for description of the pulmonary findings. Jimmy Lara MD Renal Ultrasound 11/06/16 0000 Signed Impressions: Service Date/Time: Sunday, November 06, 2016 22:24 - CONCLUSION: Probable complicated cyst midpole left kidney measuring 2.0 cm. Otherwise negative exam. No evidence of hydronephrosis. Scott Cantor MD Chest CT 11/06/16 0000 Signed Impressions: Service Date/Time: Monday, November 07, 2016 10:50 - CONCLUSION: Severe diffuse geographic areas of groundglass attenuation bilaterally with trace bilateral pleural effusions. The pattern is nonspecific but can be seen with infection and ARDS among other etiologies. Jimmy Lara MD Head CT 11/04/16 2326 Signed Impressions: Service Date/Time: Friday, November 04, 2016 23:45 - CONCLUSION: No acute intracranial findings. Jimmy Felton MD Abdomen/Pelvis CT 11/04/16 0000 Signed Impressions: Service Date/Time: Friday, November 04, 2016 23:48 - CONCLUSION: Markedly dilated urinary bladder with mild-moderate bilateral hydronephrosis Jimmy Felton MD Last Impressions Liver Ultrasound 11/09/16 0000 Signed Impressions: Service Date/Time: Wednesday, November 09, 2016 08:03 - CONCLUSION: 1. No acute abnormality. 2. Prior cholecystectomy. Common bile duct is within the normal range in terms of size for patient status post cholecystectomy. 3. Dystrophic calcification involving the right lobe of the liver. Scott Mittal Jr., MD Chest X-Ray 11/09/16 0000 Signed Impressions: Service Date/Time: Wednesday, November 09, 2016 03:36 - CONCLUSION: Mild improvement in the bilateral interstitial infiltrates. Roland Maier MD Thoracic Spine MRI 11/07/16 0000 Signed Impressions: Service Date/Time: Monday, November 07, 2016 10:23 - CONCLUSION: 1. There is a fracture of the T1 vertebral body and T5 vertebral body. No significant height loss is present and there is no retropulsion of any fracture fragment. No canal stenosis is present. 2. Please refer to today's chest CT examination report for description of the pulmonary findings. Jimmy Lara MD Renal Ultrasound 11/06/16 0000 Signed Impressions: Service Date/Time: Sunday, November 06, 2016 22:24 - CONCLUSION: Probable complicated cyst midpole left kidney measuring 2.0 cm. Otherwise negative exam. No evidence of hydronephrosis. Scott Cantor MD Chest CT 11/06/16 0000 Signed Impressions: Service Date/Time: Monday, November 07, 2016 10:50 - CONCLUSION: Severe diffuse geographic areas of groundglass attenuation bilaterally with trace bilateral pleural effusions. The pattern is nonspecific but can be seen with infection and ARDS among other etiologies. Jimmy Lara MD Head CT 11/04/16 2326 Signed Impressions: Service Date/Time: Friday, November 04, 2016 23:45 - CONCLUSION: No acute intracranial findings. Jimmy Felton MD Abdomen/Pelvis CT 11/04/16 0000 Signed Impressions: Service Date/Time: Friday, November 04, 2016 23:48 - CONCLUSION: Markedly dilated urinary bladder with mild-moderate bilateral hydronephrosis Jimmy Felton MD Last Impressions Chest X-Ray 11/07/16 0600 Signed Impressions: Service Date/Time: Monday, November 07, 2016 05:03 - CONCLUSION: Persistent and stable bilateral air space opacities in the medial lungs. Scott Cantor MD Thoracic Spine MRI 11/07/16 0000 Signed Impressions: Service Date/Time: Monday, November 07, 2016 10:23 - CONCLUSION: 1. There is a fracture of the T1 vertebral body and T5 vertebral body. No significant height loss is present and there is no retropulsion of any fracture fragment. No canal stenosis is present. 2. Please refer to today's chest CT examination report for description of the pulmonary findings. Jimmy Lara MD Renal Ultrasound 11/06/16 0000 Signed Impressions: Service Date/Time: Sunday, November 06, 2016 22:24 - CONCLUSION: Probable complicated cyst midpole left kidney measuring 2.0 cm. Otherwise negative exam. No evidence of hydronephrosis. Scott Cantor MD Chest CT 11/06/16 0000 Signed Impressions: Service Date/Time: Monday, November 07, 2016 10:50 - CONCLUSION: Severe diffuse geographic areas of groundglass attenuation bilaterally with trace bilateral pleural effusions. The pattern is nonspecific but can be seen with infection and ARDS among other etiologies. Jimmy Lara MD Head CT 11/04/16 2326 Signed Impressions: Service Date/Time: Friday, November 04, 2016 23:45 - CONCLUSION: No acute intracranial findings. Jimmy Felton MD Abdomen/Pelvis CT 11/04/16 0000 Signed Impressions: Service Date/Time: Friday, November 04, 2016 23:48 - CONCLUSION: Markedly dilated urinary bladder with mild-moderate bilateral hydronephrosis Jimmy Felton MD Objective Remarks Drips: Fentanyl 125 g per hour GENERAL: Patient is 71 yo awake and alert, following commands. Fentanyl infusion off. SKIN: Warm and dry. HEAD: Normocephalic. EYES: No scleral icterus. No injection or drainage. NECK: Supple, trachea midline. No JVD or lymphadenopathy. [place] J C-collar in place CARDIOVASCULAR: Regular rate and rhythm without murmurs, gallops, or rubs. RESPIRATORY: Breath sounds equal bilaterally with coarse BS bibasilar. GASTROINTESTINAL: Abdomen soft, non-tender, nondistended. OGT tube feeds on hold for trial of extubation. bowel sounds presenet MUSCULOSKELETAL: No cyanosis, 1-2+ edema, all extremities Neuro: Awake , makes eye contact and follows commands with all extremities. Urinary Catheter: Yes Assessment to: Continue Sanders insert reason: Measure Accurate Output Vascular Central Line Catheter: No A/P Assessment and Plan NEURO: Acute metabolic encephalopathy, improved C7-T1 fracture (T1 vertebral body comminuted fracture, bilateral C7 pedicle fracture extending to the right facet. Remote history of anterior C6-C7 and C4-C5 fusion with plate placement. Pain H/O Chronic pain syndrome Pain control -multimodal pain therapy-Roxicodone scheduled every 6 hours, hydrocodone prn. Tramadol every 6 hours prn . Fentanyl discontinued. -GCS 15 -CT head negative for acute findings. - 11/07 MRI spine:Fracture of the T1 vertebral body and T5 vertebral body. - Wellbutrin 150 bid, Xanax 0.5 bid RESP: Acute hypoxemic respiratory failure Pulmonary fibrosis/COPD exacerbation History of asthma Probable HCAP -Glidescope intubation 1 attempt 11/06 (Dr. Marquez) -Bronchodilators scheduled -Continue Solumedrol 20 mg IV every [address] Escalera -home med on hold: Spiriva 18 mcg inhaled daily<Singulair 10 po hs Budesonide 0.5 neb q12. - Pulmonary is following-Dr. Escalera -CT chest showed diffuse GGO b/l -Sputum culture11/08 -budding yeast with pseudohyphae -Sputum Culture 11/09-Rare gram negative rods -Respiratory status appears to have improved somewhat with diuresis, though chest x-ray is unchanged this a.m.. We'll plan for trial of extubation -Discussed with , holding off on initiation of Xolair at this time due to concern for infection. -Extubated 11/16, placed on BiPAP 01/06 - 11/17 Begin HiFlow N/C, and wean as tolerated CVS A Flutter with RVR Fluid overload -Monitor HR and BP keep MAP>65mmHg. On Cardizem 60mg QID, Metoprolol 25mg BID -Echo showed EF 45-50%, diffuse hypokinesis, cardiology is following, Dr. Barrera -Troponin negative -Esmolol dc'd 11/14 GI: Constipation-resolved -Elevated LFT's, check US liver-no acute abnormality .dystrophic calcification right lobe, common bile duct within normal limits - IV Protonix for GI prophylaxis -On TF-Glucerna 1.5 @, change to goal rate 50 L per hour per nutrition recommendations. -Was having diarrhea on prior bowel regimen. Continue MiraLAX which is a home medication. -Obtain Cdiff antigen FEN/RENAL: Hydronephrosis from urinary retention/obstruction Hypernatremia-resolved -Monitor renal function , I/O's, -Continue free water flushes to 300 cc every 6 - on hold, Na 145 BUN elevation may in part be secondary to steroids. -Lasix as per above. -Renal US: Probable complicated cyst midpole left kidney measuring 2.0 cm. No evidence of hydronephrosis. - Lasix decreased to 20mg BID ID: Healthcare associated pneumonia Sepsis Persistent fevers Leukocytosis - (thromobphlebitis vs steroids vs infectious) -Acetaminophen 650mg for temp greater than 101.0 -Sputum culture11/08 -budding yeast with pseudohyphae -Sputum Culture 11/09-Rare gram negative robin -Blood cultures11/08- NGTD -Abx per ID, Dr. Phan, management of antibiotic regimen (vancomycin, azithromycin, fluconazole). -Ordered C diff but now no further BMs. Pancultured 11/14, pending Microbiology: 11/05blood culture 2 setsno growth today 11/07blood cultureno growth today 11/08blood culture 2 setsno growth today 11/09pending culturenegative 11/14blood culture 2 sets pending 11/14sputum culturepending 11/14urinalysis without evidence of infection. -US11/12 bilateral upper and lower extremities-superficial nonocclusive thrombus right cephalic vein HEME: -Monitor CBC, CMP ENDO: Hypokalemia Hyperglycemia of critical illness -Electrolyte replacement per protocol. Sliding scale insulin if needed -On [place] Thyroid 90mg daily, TSH: 0.123 -Glucose monitoring every 6 hours per ICU protocol -Sliding-scale insulin MSK: -PT-functional maintenance daily - Multi-Podus boots PROPH: -Bilateral lower extremity SCDs. Subcutaneous heparin 5000 q8 for DVT prophylaxis. IV Protonix for GI prophylaxis LINES: -Utilize peripheral IVs. No invasive lines. This patient remains critically ill with one or more organ systems which are or may become a threat to life. I have spent in excess of 37 minutes discontinuously in the care and management of this patient. This time is exclusive of procedures, and includes, but is not limited to, evaluation of the patient, review of the medical record, discussions with family, consultants, nursing staff, or respiratory therapy, and documentation in the medical record. Discussed with AUTOMATION CONTROL INTEGRATOR at bedside and Dr. Rodríguez(). Physician Megha Pastrana MD Nov 17, 2016 11:35
[2016-11-17] MEDS: FLUCONAZOLE 200 MG PREMIX BAG 100 ML IV SCH (12:10)
[2016-11-17] MEDS: AZITHROMYCIN SUSP 200 MG/5 ML 15 ML BTL PO SCH (13:03)
[2016-11-17] MEDS: PANTOPRAZOLE SODIUM 40 MG VIAL IV PUSH SCH (14:02)
--- NOTE | 2016-11-17 16:31 | HHI.IDPN ---
Note Infectious Disease Note Patient is comfortable. No distress. On high flow nasal canula. Afebrile. at bedside. Noted to have loose stools yesterday. Now constipated. Patient for fevers. PAST MEDICAL HISTORY 1. Asthma. 2. Pulmonary fibrosis. 3. Gastroesophageal reflux disease. 4. Hemochromatosis. 5. Acid reflux. 6. Cholecystectomy. 7. Lumbar spine surgery. 8. Cervical spine surgery. 9. Hysterectomy. 10. Left parotid gland surgery. 11. Breast reduction. 12. Tonsillectomy. 13. Anterior cervical fusion of C6-C7. ALLERGIES 1. BETADINE. 2. IODINE. 3. THE PATIENT'S REPORTS SHE GETS UPSET STOMACH WITH CIPROFLOXACIN BUT THAT SHE IS UNABLE TO TOLERATE IV CIPROFLOXACIN. ANTIBIOTICS: Azithromycin Vancomycin. Fluconazole. Other meds reviewed. OBJECTIVE: Vital Signs Date Time Temp Pulse Resp B/P Pulse Ox O2 Delivery O2 Flow Rate FiO2 11/17/16 14:00 62 11/17/16 13:09 24 11/17/16 12:00 98.7 65 25 169/77 93 11/17/16 12:00 65 11/17/16 10:00 68 11/17/16 09:42 90 High Flow Nasal Cannula 20.00 60 11/17/16 09:30 94 Nasal Cannula 60 11/17/16 08:00 56 11/17/16 08:00 98.5 56 24 133/74 94 11/17/16 07:52 92 50 11/17/16 07:52 92 BiPAP 50 11/17/16 07:00 90 Bi-Pap 50 11/17/16 06:00 75 11/17/16 04:29 93 50 11/17/16 04:00 99.3 64 24 143/71 94 11/17/16 04:00 75 11/17/16 02:00 64 11/17/16 01:31 92 50 11/17/16 00:00 64 11/17/16 00:00 99.3 64 24 143/71 94 11/16/16 22:16 93 50 11/16/16 22:00 65 11/16/16 20:23 94 50 11/16/16 20:00 99.3 63 24 123/70 94 11/16/16 20:00 63 11/16/16 19:00 93 Bi-Pap 50 11/16/16 18:00 70 11/16/16 11/16/16 11/17/16 15:00 23:00 07:00 Intake Total 1012 ml 74 ml 81 ml Output Total 750 ml 1900 ml 1450 ml Balance 262 ml -1826 ml -1369 ml IV Total 727 ml 74 ml 81 ml Tube Feeding 225 ml Other 60 ml Output Urine Total 750 ml 1900 ml 1450 ml Tube Feeding Residual Discard 0 ml 0 ml # Bowel Movements 1 0 0 Laboratory Tests Test 11/16/16 11/17/16 08:24 04:00 White Blood Count 22.7 TH/MM3 20.8 TH/MM3 Red Blood Count 3.62 MIL/MM3 3.58 MIL/MM3 Hemoglobin 11.8 GM/DL 11.5 GM/DL Hematocrit 35.2 % 34.7 % Mean Corpuscular Volume 97.3 FL 97.1 FL Mean Corpuscular Hemoglobin 32.6 PG 32.3 PG Mean Corpuscular Hemoglobin 33.5 % 33.2 % Concent Red Cell Distribution Width 14.2 % 13.9 % Platelet Count 258 TH/MM3 252 TH/MM3 Mean Platelet Volume 10.5 FL 10.5 FL Neutrophils (%) (Auto) 95.3 % 92.1 % Lymphocytes (%) (Auto) 2.9 % 4.1 % Monocytes (%) (Auto) 1.3 % 3.5 % Eosinophils (%) (Auto) 0.1 % 0.1 % Basophils (%) (Auto) 0.4 % 0.2 % Neutrophils # (Auto) 21.6 TH/MM3 19.1 TH/MM3 Lymphocytes # (Auto) 0.7 TH/MM3 0.9 TH/MM3 Monocytes # (Auto) 0.3 TH/MM3 0.7 TH/MM3 Eosinophils # (Auto) 0.0 TH/MM3 0.0 TH/MM3 Basophils # (Auto) 0.1 TH/MM3 0.0 TH/MM3 CBC Comment AUTO DIFF AUTO DIFF Differential Comment AUTO DIFF AUTO DIFF CONFIRMED CONFIRMED Stomatocytes 1+ 1+ Platelet Estimate NORMAL Platelet Morphology Comment NORMAL Laboratory Tests Test 11/16/16 11/17/16 08:24 04:00 Sodium Level 145 MEQ/L 144 MEQ/L Potassium Level 4.4 MEQ/L 3.7 MEQ/L Chloride Level 101 MEQ/L 102 MEQ/L Carbon Dioxide Level 37.4 MEQ/L 37.2 MEQ/L Anion Gap 7 MEQ/L 5 MEQ/L Blood Urea Nitrogen 52 MG/DL 43 MG/DL Creatinine 1.36 MG/DL 1.20 MG/DL Estimat Glomerular Filtration 38 ML/MIN 44 ML/MIN Rate Random Glucose 151 MG/DL 78 MG/DL Calcium Level 8.6 MG/DL 9.0 MG/DL Phosphorus Level 6.4 MG/DL 4.6 MG/DL Magnesium Level 2.4 MG/DL 2.1 MG/DL Microbiology Date/Time Procedure Status Source Growth 11/14/16 19:18 Aerobic Blood Culture - Preliminary Resulted Blood Peripheral NO GROWTH IN 3 DAYS 11/14/16 19:18 Anaerobic Blood Culture - Preliminary Resulted Blood Peripheral NO GROWTH IN 3 DAYS 11/14/16 19:23 Aerobic Blood Culture - Preliminary Resulted Blood Peripheral NO GROWTH IN 3 DAYS 11/14/16 19:23 Anaerobic Blood Culture - Preliminary Resulted Blood Peripheral NO GROWTH IN 3 DAYS 11/14/16 19:40 Gram Stain - Final Complete Sputum Endotracheal 11/14/16 19:40 Sputum Culture - Final Complete Sputum Endotracheal HEAVY GROWTH NORMAL RESPIRATORY JUNIOR IMAGING: Chest X-Ray 11/15/16 0000 Signed Impressions: Service Date/Time: Tuesday, November 15, 2016 11:02 - CONCLUSION: No significant interval change. Roland Maier MD Chest X-Ray 11/12/16 0600 Signed Impressions: Service Date/Time: October 02:40 - CONCLUSION: No significant interval change. Roland Maier MD Upper Extremity Ultrasound 11/11/16 0000 Signed Impressions: Service Date/Time: Friday, November 11, 2016 21:51 - CONCLUSION: 1. No evidence of DVT. 2. Focal superficial thrombosis involving the distal right cephalic vein. Roland Maier MD Lower Extremity Ultrasound 11/11/16 0000 Signed Impressions: Service Date/Time: Friday, November 11, 2016 21:22 - CONCLUSION: Negative exam with no evidence of deep venous thrombosis. Rex Corcoran MD Liver Ultrasound 11/09/16 0000 Signed Impressions: Service Date/Time: Wednesday, November 09, 2016 08:03 - CONCLUSION: 1. No acute abnormality. 2. Prior cholecystectomy. Common bile duct is within the normal range in terms of size for patient status post cholecystectomy. 3. Dystrophic calcification involving the right lobe of the liver. Scott Mittal Jr., MD Thoracic Spine MRI 11/07/16 0000 Signed Impressions: Service Date/Time: Monday, November 07, 2016 10:23 - CONCLUSION: 1. There is a fracture of the T1 vertebral body and T5 vertebral body. No significant height loss is present and there is no retropulsion of any fracture fragment. No canal stenosis is present. 2. Please refer to today's chest CT examination report for description of the pulmonary findings. Jimmy Lara MD Renal Ultrasound 11/06/16 0000 Signed Impressions: Service Date/Time: Sunday, November 06, 2016 22:24 - CONCLUSION: Probable complicated cyst midpole left kidney measuring 2.0 cm. Otherwise negative exam. No evidence of hydronephrosis. Scott Cantor MD Chest CT 11/06/16 0000 Signed Impressions: Service Date/Time: Monday, November 07, 2016 10:50 - CONCLUSION: Severe diffuse geographic areas of groundglass attenuation bilaterally with trace bilateral pleural effusions. The pattern is nonspecific but can be seen with infection and ARDS among other etiologies. Jimmy Lara MD Head CT 11/04/16 2326 Signed Impressions: Service Date/Time: Friday, November 04, 2016 23:45 - CONCLUSION: No acute intracranial findings. Jimmy Felton MD Abdomen/Pelvis CT 11/04/16 0000 Signed Impressions: Service Date/Time: Friday, November 04, 2016 23:48 - CONCLUSION: Markedly dilated urinary bladder with mild-moderate bilateral hydronephrosis Jimmy Felton MD PHYSICAL EXAMINATION GENERAL: No acute distress. Alert awake. ? confused. HEENT: Unable to fully assess. no icterus. NECK: No adenopathy or swelling. The patient has a neck collar in place. LUNGS: Clear breath sounds. HEART: Regular S1 and S2. No audible murmurs. ABDOMEN: Decreased bowel sounds, soft, no palpable masses. EXTREMITIES: No edema. Pulses 2+ radial and dorsalis pedis. SKIN: No rash. NEUROLOGIC: non focal. PSYCHIATRIC: Calm and cooperative. IMPRESSION 1. Fever, questionable etiology. Temp lower after stopping beta lactam abx. ? drug fever. 2. Acute respiratory failure. 3. Leukocytosis. ? due to PNA. WBC still elevated. Also has superficial distal r. cephalic vein thrombus. Also on Solumedrol. 4. Sepsis on admission indicated by elevated heart rate, elevated temperature, elevated white blood cell count. Source unclear but likely pulmonary. 5. Abnormal chest x-ray with bilateral interstitial infiltrates suggesting possible pneumonia versus COPD. Negative sputum culture. RECOMMENDATIONS 1. Stop Azithromycin. 2. Continue Fluconazole. 3. Stop vancomycin. 4. Send stool for c. diff if diarrhea recurs 5. Monitor white blood cell count. 6. Monitor clinical status. Roberto Phan MD Nov 17, 2016 16:26
[2016-11-17] MEDS: MONTELUKAST SODIUM 10 MG TAB PO SCH (21:10)
[2016-11-18] VITALS (14 sets, daily range): BP systolic 140–174; BP diastolic 67–81; PULSE 54–77; RESP 20–28; TEMP 99.2–99.7; O2SAT 90–94
[2016-11-18] MEDS: methylPREDNISolone SOD SUCC 40 MG/1 ML VIAL IV SCH ×2 (01:42→13:16)
[2016-11-18] MEDS: RESP: ALBUTEROL 2.5 MG/IPRATROPIUM 0.5 MG NEB (SCH) NEB ×6 (02:59→23:21)
[2016-11-18] MEDS: HIGH DOSE INSULIN NOVOLOG SUPPLEMENTAL SCALE SQ SCH ×5 (03:00→21:19)
[2016-11-18] MEDS: DILTIAZEM HCL 60 MG TAB PO SCH ×4 (06:00→23:12)
[2016-11-18] MEDS: HEPARIN SODIUM - SQ 10,000 UNITS/ML VIAL SQ SCH ×3 (06:49→21:19)
[2016-11-18] MEDS: FUROSEMIDE 40 MG/4 ML VIAL IV PUSH SCH (06:49)
[2016-11-18] MEDS: RESP: BUDESONIDE 0.5 MG/2 ML NEB NEB SCH ×2 (07:45→19:32)
[2016-11-18] MEDS: CHLORHEXIDINE 0.12% (ORAL KIT) 15 ML CUP MT SCH ×2 (08:00→20:00)
[2016-11-18] MEDS: LEVOCETIRIZINE 5 MG PO SCH (09:00)
[2016-11-18] MEDS: buPROPion HCL 100 MG TAB PO SCH ×2 (09:30→21:18)
[2016-11-18] MEDS: THYROID 30 MG TAB PO SCH (09:30)
[2016-11-18] MEDS: CETIRIZINE HCL SYRUP 10 MG/10 ML UDC TUBE SCH (09:30)
[2016-11-18] MEDS: METOPROLOL TARTRATE 25 MG TAB PO SCH ×2 (09:30→21:18)
[2016-11-18] MEDS: DOCUSATE SODIUM 100 MG CAP PO SCH ×2 (09:30→21:18)
[2016-11-18] MEDS: POLYETHYLENE GLYCOL 17 GM PKG PO SCH ×2 (09:30→21:18)
[2016-11-18] MEDS: TIOTROPIUM BROMIDE 18 MCG INH INH SCH (09:32)
[2016-11-18] MEDS: SODIUM CHLORIDE 0.9% FLUSH 5 ML FLUSH FLUSH SCH ×2 (09:43→21:00)
[2016-11-18] MEDS: PANTOPRAZOLE SODIUM 40 MG VIAL IV PUSH SCH (13:15)
[2016-11-18] MEDS: FLUCONAZOLE 200 MG PREMIX BAG 100 ML IV SCH (13:16)
--- NOTE | 2016-11-18 14:47 | HHI.IDPN ---
Note Infectious Disease Note Patient is confused. No distress. On high 60% O2. Low grade temp earlier. at bedside. Had BM. Formed stools. Patient seen for fevers. PAST MEDICAL HISTORY 1. Asthma. 2. Pulmonary fibrosis. 3. Gastroesophageal reflux disease. 4. Hemochromatosis. 5. Acid reflux. 6. Cholecystectomy. 7. Lumbar spine surgery. 8. Cervical spine surgery. 9. Hysterectomy. 10. Left parotid gland surgery. 11. Breast reduction. 12. Tonsillectomy. 13. Anterior cervical fusion of C6-C7. ALLERGIES 1. BETADINE. 2. IODINE. 3. THE PATIENT'S REPORTS SHE GETS UPSET STOMACH WITH CIPROFLOXACIN BUT THAT SHE IS UNABLE TO TOLERATE IV CIPROFLOXACIN. ANTIBIOTICS: Fluconazole. Other meds reviewed. OBJECTIVE: Vital Signs Date Time Temp Pulse Resp B/P Pulse Ox O2 Delivery O2 Flow Rate FiO2 11/18/16 12:00 99.5 56 28 163/77 90 11/18/16 12:00 54 11/18/16 10:00 77 11/18/16 08:00 99.4 66 21 170/81 94 11/18/16 08:00 66 11/18/16 08:00 94 Nasal Cannula 70 11/18/16 07:46 91 High Flow Nasal Cannula 30.00 68 11/18/16 06:00 61 11/18/16 04:00 99.2 59 21 144/71 93 11/18/16 04:00 59 11/18/16 02:00 63 11/18/16 00:00 99.7 65 24 140/67 94 11/18/16 00:00 58 11/17/16 22:00 61 11/17/16 20:00 99.7 65 24 140/67 94 11/17/16 20:00 75 11/17/16 19:36 94 High Flow Nasal Cannula 30.00 70 11/17/16 19:00 93 Nasal Cannula 60 11/17/16 18:30 18 11/17/16 18:00 67 11/17/16 16:00 66 11/17/16 16:00 98.7 66 25 165/80 92 11/17/16 11/17/16 11/18/16 15:00 23:00 07:00 Intake Total 799 ml 92 ml 122 ml Output Total 1925 ml 1450 ml 750 ml Balance -1126 ml -1358 ml -628 ml Intake Oral 120 ml 6 ml 30 ml IV Total 619 ml 86 ml 92 ml Tube Irrigant 60 ml 0 ml Output Urine Total 1925 ml 1450 ml 750 ml # Bowel Movements 0 0 0 Laboratory Tests Test 11/17/16 04:00 White Blood Count 20.8 TH/MM3 Red Blood Count 3.58 MIL/MM3 Hemoglobin 11.5 GM/DL Hematocrit 34.7 % Mean Corpuscular Volume 97.1 FL Mean Corpuscular Hemoglobin 32.3 PG Mean Corpuscular Hemoglobin 33.2 % Concent Red Cell Distribution Width 13.9 % Platelet Count 252 TH/MM3 Mean Platelet Volume 10.5 FL Neutrophils (%) (Auto) 92.1 % Lymphocytes (%) (Auto) 4.1 % Monocytes (%) (Auto) 3.5 % Eosinophils (%) (Auto) 0.1 % Basophils (%) (Auto) 0.2 % Neutrophils # (Auto) 19.1 TH/MM3 Lymphocytes # (Auto) 0.9 TH/MM3 Monocytes # (Auto) 0.7 TH/MM3 Eosinophils # (Auto) 0.0 TH/MM3 Basophils # (Auto) 0.0 TH/MM3 CBC Comment AUTO DIFF Differential Comment AUTO DIFF CONFIRMED Platelet Estimate NORMAL Platelet Morphology Comment NORMAL Stomatocytes 1+ Laboratory Tests Test 11/17/16 04:00 Sodium Level 144 MEQ/L Potassium Level 3.7 MEQ/L Chloride Level 102 MEQ/L Carbon Dioxide Level 37.2 MEQ/L Anion Gap 5 MEQ/L Blood Urea Nitrogen 43 MG/DL Creatinine 1.20 MG/DL Estimat Glomerular Filtration 44 ML/MIN Rate Random Glucose 78 MG/DL Calcium Level 9.0 MG/DL Phosphorus Level 4.6 MG/DL Magnesium Level 2.1 MG/DL IMAGING: Chest X-Ray 11/15/16 0000 Signed Impressions: Service Date/Time: Tuesday, November 15, 2016 11:02 - CONCLUSION: No significant interval change. Roland Maier MD PHYSICAL EXAMINATION GENERAL: No acute distress. Alert awake. Confused. HEENT: No icterus. NECK: No adenopathy or swelling. The patient has a neck collar in place. LUNGS: Decreased breath sounds. HEART: Regular S1 and S2. No audible murmurs. ABDOMEN: Decreased bowel sounds, soft, non tender. EXTREMITIES: No edema. Pulses 2+ radial and dorsalis pedis. SKIN: No rash. NEUROLOGIC: non focal. PSYCHIATRIC: Calm and cooperative. IMPRESSION 1. Fever, questionable etiology. Temp improved after stopping beta lactam abx. ? drug fever. Now low grade fever. 2. Acute respiratory failure. Extubated and on high flow oxygen. 3. Leukocytosis. ? due to PNA. WBC still elevated. Also has superficial distal r. cephalic vein thrombus. Also on Solumedrol. However still has abnormal CXR. ? result of pulmonary fibrosis. 4. Sepsis on admission indicated by elevated heart rate, elevated temperature, elevated white blood cell count. Source unclear but likely pulmonary. 5. Abnormal chest x-ray with bilateral interstitial infiltrates suggesting possible pneumonia versus COPD. Negative sputum culture. RECOMMENDATIONS 1. Start Aztreonam for gram negative pulmonary coverage. 2. Continue Fluconazole. 3. Monitor white blood cell count and temp. 4. Monitor clinical status. Roberto Phan MD Nov 18, 2016 14:47
[2016-11-18] MEDS: AZTREONAM INJ 1,000 MG in SODIUM CHLORIDE 0.9% INJ 100 ML IV SCH ×2 (15:00→21:19)
--- NOTE | 2016-11-18 15:21 | HHI.CCPN ---
Subjective Remarks/Hospital Course Patient is a 71-year-old female with history of pulmonary fibrosis, asthma, probable COPD on home oxygen who had a recent fall at home and sustained C7/ T1 fractures. She was evaluated by neurosurgery and conservatively managed and placed in a cervical collar. She was discharged home on 11/04/16. The pt developed inability to ambulate at home and also had urinary retention. Patient 's also noticed that she had been more confused. ER workup included a CT of the head which was negative, CT of the abdomen pelvis showed markedly distended bladder with mild to moderate hydronephrosis. Sanders catheter was inserted. Chest x-ray showed increasing bilateral infiltrates. Patient was admitted to the hospitalist service, on broad-spectrum antibiotics with Zosyn and vancomycin, breathing treatments. Neurology Dr. Xiong was also consulted Today was noted to have increasing shortness of breath today, tachypnea and hypoxia requiring a partial nonrebreather. Also noted to have A flutter with rapid ventricular response. Cardizem boluses 2 was given on Cardizem infusion was started. Because of her worsening respiratory failure patient was moved to the ICU. Critical care medicine consulted and I immediately evaluated the patient. She is in moderate distress on partial nonrebreather breathing 35-40/ m. Chest exam shows bilateral crackles and wheezes. I have added Solu-Medrol and scheduled breathing treatments and ordered BiPAP 10 over 5. I explained to the patient and the that patient may need endotracheal intubation and mechanical ventilation if she is not improving with BiPAP. 11/07 Patient is sedated with Diprivan and intubated. Afebrile. On Cardizem drip 5mg/hr, for MRI spine and CT thorax today. 11/08 Patient is sedated with Fentnayl and intubated. Afebrile. Renal function worse today with Cr: 1.65 from 1.15 11/09 Tmax 102.2. The patient's sputum culture grew preliminarily budding yeast with pseudohyphae. Diflucan initiated yesterday white count trending down. Lasix discontinued yesterday secondary to elevated creatinine level. 11/10 Afebrile. Able to wean oxygenation to FiO2 of 40% today. CPAP trials plan for today. The patient was noted to be hypernatremic free water flushes were added to her tube feedings. Creatinine slightly improved today. PT consulted Functional maintenance with specific requirements to be referred to neurosurgery for restrictions of any type of activities regarding functional maintenance. 11/11 Tmax 101.7. Patient continues to have persistent fevers, on antibiotic therapy, ID consulted,Dr Phan, appreciate recommendations. The patient has elevations in heart rate with activity/movement, received 2 doses of metoprolol with some diminution, from 160 to 90's yesterday. Overnight the patient's heart rate remained in the 120's. CPAP trials were initiated yesterday the patient was able to maintain the trial for approximately 4 hours. 11/12 Persistent fever last 24 hours, patient placed on a cooling blanket. Antibiotics adjusted per ID, Dr. Phan. Ultrasound Doppler obtained bilateral upper and lower extremities results superficial thrombus white distal cephalic vein. The patient was maintained on CPAP approximately 9 hours yesterday. Fentanyl infusion resumed today, patient complained of pain. Scheduled by mouth narcotics initiated. 11/13 CPAP trials lasted 11 hours. Patient continues to have fevers on a cooling blanket, Dr. Phan managing antibiotic regimen. Patient can continuously complain of pain, scheduled pain meds multimodal therapy approach initiated. 11/14 Was on CPAP 10/8 FiO2 55% for several hours and then terminated due to desaturation. WBC up to 22.9 without fever. No significant respiratory secretions. Had diarrhea yesterday but now RN reports no BM today after holding bowel regimen. Abdomen benign and tolerating tube feeds. Check for C diff if has a loose stool. Panculture sent. updated at bedside. Has no invasive lines. Subjective: 11/15 Diuresed net negative 1 L last shift following lasix. Creatinine downtrend to 1.19. Sodium down to 150. Received 6 am dose of Lasix. FiO2 weaned to 45%. WBC down 17. Afebrile. Placed on CPAP 5/5 and TV 550 and RSBI 30s. Sats 89-92% on 50%. 11/16 Tmax in 100.1. The patient continues today on CPAP trial PaO2 65 on FiO2 of 55%. The patient has been diuresed over the last several days, sodium is down trending now 145 tube feeds are off, will plan for a trial of extubation. As discussed with the Dr. Reyes that the patient possibly will need tracheostomy. Dr. Aguilera consulted for possible tracheostomy. 11/17 Afebrile. The patient was extubated yesterday afternoon .The patient tolerated BiPAP overnight, maintaining O2 sat 9294%, on FiO2 of 50%. Plan to transition to high flow nasal cannula if tolerated. 11/18 The patient tolerated-flow nasal cannula for the last 24 hours. Attempts at weaning FiO2 less than 65% unsuccessful at this point. O2 sat 8892%. Patient unable to perform incentive spirometry at this time. Objective Vital Signs Date Time Temp Pulse Resp B/P Pulse Ox O2 Delivery O2 Flow Rate FiO2 11/18/16 12:00 99.5 56 28 163/77 90 11/18/16 08:00 Nasal Cannula 70 11/18/16 07:46 30.00 Intake and Output 11/17/16 11/17/16 11/18/16 08:00 16:00 00:00 Intake Total 81 ml 799 ml 92 ml Output Total 1450 ml 1925 ml 1450 ml Balance -1369 ml -1126 ml -1358 ml Result Diagram: 11/17/16 0400 11/17/16 0400 Imaging Last Impressions Chest X-Ray 11/15/16 0000 Signed Impressions: Service Date/Time: Tuesday, November 15, 2016 11:02 - CONCLUSION: No significant interval change. Roland Maier MD Upper Extremity Ultrasound 11/11/16 0000 Signed Impressions: Service Date/Time: Friday, November 11, 2016 21:51 - CONCLUSION: 1. No evidence of DVT. 2. Focal superficial thrombosis involving the distal right cephalic vein. Roland Maier MD Lower Extremity Ultrasound 11/11/16 0000 Signed Impressions: Service Date/Time: Friday, November 11, 2016 21:22 - CONCLUSION: Negative exam with no evidence of deep venous thrombosis. Rex Corcoran MD Liver Ultrasound 11/09/16 0000 Signed Impressions: Service Date/Time: Wednesday, November 09, 2016 08:03 - CONCLUSION: 1. No acute abnormality. 2. Prior cholecystectomy. Common bile duct is within the normal range in terms of size for patient status post cholecystectomy. 3. Dystrophic calcification involving the right lobe of the liver. Scott Mittal Jr., MD Thoracic Spine MRI 11/07/16 0000 Signed Impressions: Service Date/Time: Monday, November 07, 2016 10:23 - CONCLUSION: 1. There is a fracture of the T1 vertebral body and T5 vertebral body. No significant height loss is present and there is no retropulsion of any fracture fragment. No canal stenosis is present. 2. Please refer to today's chest CT examination report for description of the pulmonary findings. Jimmy Lara MD Renal Ultrasound 11/06/16 0000 Signed Impressions: Service Date/Time: Sunday, November 06, 2016 22:24 - CONCLUSION: Probable complicated cyst midpole left kidney measuring 2.0 cm. Otherwise negative exam. No evidence of hydronephrosis. Scott Cantor MD Chest CT 11/06/16 0000 Signed Impressions: Service Date/Time: Monday, November 07, 2016 10:50 - CONCLUSION: Severe diffuse geographic areas of groundglass attenuation bilaterally with trace bilateral pleural effusions. The pattern is nonspecific but can be seen with infection and ARDS among other etiologies. Jimmy Lara MD Head CT 11/04/16 2326 Signed Impressions: Service Date/Time: Friday, November 04, 2016 23:45 - CONCLUSION: No acute intracranial findings. Jimmy Felton MD Abdomen/Pelvis CT 11/04/16 0000 Signed Impressions: Service Date/Time: Friday, November 04, 2016 23:48 - CONCLUSION: Markedly dilated urinary bladder with mild-moderate bilateral hydronephrosis Jimmy Felton MD Last Impressions Chest X-Ray 11/12/16 0600 Signed Impressions: Service Date/Time: October 02:40 - CONCLUSION: No significant interval change. Roland Maier MD Upper Extremity Ultrasound 11/11/16 0000 Signed Impressions: Service Date/Time: Friday, November 11, 2016 21:51 - CONCLUSION: 1. No evidence of DVT. 2. Focal superficial thrombosis involving the distal right cephalic vein. Roland Maier MD Lower Extremity Ultrasound 11/11/16 0000 Signed Impressions: Service Date/Time: Friday, November 11, 2016 21:22 - CONCLUSION: Negative exam with no evidence of deep venous thrombosis. Rex Corcoran MD Liver Ultrasound 11/09/16 0000 Signed Impressions: Service Date/Time: Wednesday, November 09, 2016 08:03 - CONCLUSION: 1. No acute abnormality. 2. Prior cholecystectomy. Common bile duct is within the normal range in terms of size for patient status post cholecystectomy. 3. Dystrophic calcification involving the right lobe of the liver. Scott Mittal Jr., MD Thoracic Spine MRI 11/07/16 0000 Signed Impressions: Service Date/Time: Monday, November 07, 2016 10:23 - CONCLUSION: 1. There is a fracture of the T1 vertebral body and T5 vertebral body. No significant height loss is present and there is no retropulsion of any fracture fragment. No canal stenosis is present. 2. Please refer to today's chest CT examination report for description of the pulmonary findings. Jimmy Lara MD Renal Ultrasound 11/06/16 0000 Signed Impressions: Service Date/Time: Sunday, November 06, 2016 22:24 - CONCLUSION: Probable complicated cyst midpole left kidney measuring 2.0 cm. Otherwise negative exam. No evidence of hydronephrosis. Scott Cantor MD Chest CT 11/06/16 0000 Signed Impressions: Service Date/Time: Monday, November 07, 2016 10:50 - CONCLUSION: Severe diffuse geographic areas of groundglass attenuation bilaterally with trace bilateral pleural effusions. The pattern is nonspecific but can be seen with infection and ARDS among other etiologies. Jimmy Lara MD Head CT 11/04/16 2326 Signed Impressions: Service Date/Time: Friday, November 04, 2016 23:45 - CONCLUSION: No acute intracranial findings. Jimmy Felton MD Abdomen/Pelvis CT 11/04/16 0000 Signed Impressions: Service Date/Time: Friday, November 04, 2016 23:48 - CONCLUSION: Markedly dilated urinary bladder with mild-moderate bilateral hydronephrosis Jimmy Felton MD Last Impressions Chest X-Ray 11/12/16 0600 Signed Impressions: Service Date/Time: October 02:40 - CONCLUSION: No significant interval change. Roland Maier MD Upper Extremity Ultrasound 11/11/16 0000 Signed Impressions: Service Date/Time: Friday, November 11, 2016 21:51 - CONCLUSION: 1. No evidence of DVT. 2. Focal superficial thrombosis involving the distal right cephalic vein. Roland Maier MD Lower Extremity Ultrasound 11/11/16 0000 Signed Impressions: Service Date/Time: Friday, November 11, 2016 21:22 - CONCLUSION: Negative exam with no evidence of deep venous thrombosis. Rex Corcoran MD Liver Ultrasound 11/09/16 0000 Signed Impressions: Service Date/Time: Wednesday, November 09, 2016 08:03 - CONCLUSION: 1. No acute abnormality. 2. Prior cholecystectomy. Common bile duct is within the normal range in terms of size for patient status post cholecystectomy. 3. Dystrophic calcification involving the right lobe of the liver. Scott Mittal Jr., MD Thoracic Spine MRI 11/07/16 0000 Signed Impressions: Service Date/Time: Monday, November 07, 2016 10:23 - CONCLUSION: 1. There is a fracture of the T1 vertebral body and T5 vertebral body. No significant height loss is present and there is no retropulsion of any fracture fragment. No canal stenosis is present. 2. Please refer to today's chest CT examination report for description of the pulmonary findings. Jimmy Lara MD Renal Ultrasound 11/06/16 0000 Signed Impressions: Service Date/Time: Sunday, November 06, 2016 22:24 - CONCLUSION: Probable complicated cyst midpole left kidney measuring 2.0 cm. Otherwise negative exam. No evidence of hydronephrosis. Scott Cantor MD Chest CT 11/06/16 0000 Signed Impressions: Service Date/Time: Monday, November 07, 2016 10:50 - CONCLUSION: Severe diffuse geographic areas of groundglass attenuation bilaterally with trace bilateral pleural effusions. The pattern is nonspecific but can be seen with infection and ARDS among other etiologies. Jimmy Lara MD Head CT 11/04/16 2326 Signed Impressions: Service Date/Time: Friday, November 04, 2016 23:45 - CONCLUSION: No acute intracranial findings. Jimmy Felton MD Abdomen/Pelvis CT 11/04/16 0000 Signed Impressions: Service Date/Time: Friday, November 04, 2016 23:48 - CONCLUSION: Markedly dilated urinary bladder with mild-moderate bilateral hydronephrosis Jimmy Felton MD Last Impressions Liver Ultrasound 11/09/16 0000 Signed Impressions: Service Date/Time: Wednesday, November 09, 2016 08:03 - CONCLUSION: 1. No acute abnormality. 2. Prior cholecystectomy. Common bile duct is within the normal range in terms of size for patient status post cholecystectomy. 3. Dystrophic calcification involving the right lobe of the liver. Scott Mittal Jr., MD Chest X-Ray 11/09/16 0000 Signed Impressions: Service Date/Time: Wednesday, November 09, 2016 03:36 - CONCLUSION: Mild improvement in the bilateral interstitial infiltrates. Roland Maier MD Thoracic Spine MRI 11/07/16 0000 Signed Impressions: Service Date/Time: Monday, November 07, 2016 10:23 - CONCLUSION: 1. There is a fracture of the T1 vertebral body and T5 vertebral body. No significant height loss is present and there is no retropulsion of any fracture fragment. No canal stenosis is present. 2. Please refer to today's chest CT examination report for description of the pulmonary findings. Jimmy Lara MD Renal Ultrasound 11/06/16 0000 Signed Impressions: Service Date/Time: Sunday, November 06, 2016 22:24 - CONCLUSION: Probable complicated cyst midpole left kidney measuring 2.0 cm. Otherwise negative exam. No evidence of hydronephrosis. Scott Cantor MD Chest CT 11/06/16 0000 Signed Impressions: Service Date/Time: Monday, November 07, 2016 10:50 - CONCLUSION: Severe diffuse geographic areas of groundglass attenuation bilaterally with trace bilateral pleural effusions. The pattern is nonspecific but can be seen with infection and ARDS among other etiologies. Jimmy Lara MD Head CT 11/04/16 2326 Signed Impressions: Service Date/Time: Friday, November 04, 2016 23:45 - CONCLUSION: No acute intracranial findings. Jimmy Felton MD Abdomen/Pelvis CT 11/04/16 0000 Signed Impressions: Service Date/Time: Friday, November 04, 2016 23:48 - CONCLUSION: Markedly dilated urinary bladder with mild-moderate bilateral hydronephrosis Jimmy Felton MD Last Impressions Chest X-Ray 11/07/16 0600 Signed Impressions: Service Date/Time: Monday, November 07, 2016 05:03 - CONCLUSION: Persistent and stable bilateral air space opacities in the medial lungs. Scott Cantor MD Thoracic Spine MRI 11/07/16 0000 Signed Impressions: Service Date/Time: Monday, November 07, 2016 10:23 - CONCLUSION: 1. There is a fracture of the T1 vertebral body and T5 vertebral body. No significant height loss is present and there is no retropulsion of any fracture fragment. No canal stenosis is present. 2. Please refer to today's chest CT examination report for description of the pulmonary findings. Jimmy Lara MD Renal Ultrasound 11/06/16 0000 Signed Impressions: Service Date/Time: Sunday, November 06, 2016 22:24 - CONCLUSION: Probable complicated cyst midpole left kidney measuring 2.0 cm. Otherwise negative exam. No evidence of hydronephrosis. Scott Cantor MD Chest CT 11/06/16 0000 Signed Impressions: Service Date/Time: Monday, November 07, 2016 10:50 - CONCLUSION: Severe diffuse geographic areas of groundglass attenuation bilaterally with trace bilateral pleural effusions. The pattern is nonspecific but can be seen with infection and ARDS among other etiologies. Jimmy Lara MD Head CT 11/04/16 2326 Signed Impressions: Service Date/Time: Friday, November 04, 2016 23:45 - CONCLUSION: No acute intracranial findings. Jimmy Felton MD Abdomen/Pelvis CT 11/04/16 0000 Signed Impressions: Service Date/Time: Friday, November 04, 2016 23:48 - CONCLUSION: Markedly dilated urinary bladder with mild-moderate bilateral hydronephrosis Jimmy Felton MD Objective Remarks GENERAL: Patient is 71 yo awake and alert, following commands SKIN: Warm and dry. HEAD: Normocephalic. EYES: No scleral icterus. No injection or drainage. NECK: Supple, trachea midline. No JVD or lymphadenopathy. [place] J C-collar in place CARDIOVASCULAR: Regular rate and rhythm without murmurs, gallops, or rubs. RESPIRATORY: Breath sounds equal bilaterally with coarse BS bibasilar. No accessory muscle use. GASTROINTESTINAL: Abdomen soft, non-tender, nondistended. Tolerating pured diet. MUSCULOSKELETAL: No cyanosis, 1-2+ edema, all extremities. Neuro: Awake , makes eye contact and follows commands with all extremities. Urinary Catheter: Yes Sanders insert reason: ICU Pt Getting Diuretics A/P Assessment and Plan NEURO: Acute metabolic encephalopathy, improved C7-T1 fracture (T1 vertebral body comminuted fracture, bilateral C7 pedicle fracture extending to the right facet. Remote history of anterior C6-C7 and C4-C5 fusion with plate placement. Pain H/O Chronic pain syndrome Pain control -multimodal pain therapy-Roxicodone scheduled every 6 hours, hydrocodone prn. Tramadol every 6 hours prn . Fentanyl discontinued. -GCS 15 -CT head negative for acute findings. - 11/07 MRI spine: Fracture of the T1 vertebral body and T5 vertebral body. - Wellbutrin 150 bid, Xanax 0.5 bid RESP: Acute hypoxemic respiratory failure Pulmonary fibrosis/COPD exacerbation History of asthma Probable HCAP -Glidescope intubation 1 attempt 11/06 (Dr. Marquez) -Bronchodilators scheduled -Continue Solumedrol 20 mg IV every [address] Escalera -home med on hold: Spiriva 18 mcg inhaled daily<Singulair 10 po hs Budesonide 0.5 neb q12. - Pulmonary is following-Dr. Escalera -CT chest showed diffuse GGO b/l -Sputum culture11/08 -budding yeast with pseudohyphae -Sputum Culture 11/09-Rare gram negative rods -Discussed with , holding off on initiation of Xolair at this time due to concern for infection. -Extubated 11/16, placed on BiPAP 01/06 - 11/17 HiFlow N/C, and wean as tolerated, currently FIO2 .65% CVS A Flutter with RVR Fluid overload -Monitor HR and BP keep MAP>65mmHg. On Cardizem 60mg QID, Metoprolol 25mg BID -Echo showed EF 45-50%, diffuse hypokinesis, cardiology is following, Dr. Barrera -Troponin negative -Esmolol dc'd 11/14 GI: Constipation-resolved -Elevated LFT's, check US liver-no acute abnormality .dystrophic calcification right lobe, common bile duct within normal limits - IV Protonix for GI prophylaxis -On TF-Glucerna 1.5 @, change to goal rate 50 L per hour per nutrition recommendations. -Was having diarrhea on prior bowel regimen. Continue MiraLAX which is a home medication. -Obtain Cdiff antigen FEN/RENAL: Hydronephrosis from urinary retention/obstruction Hypernatremia-resolved -Monitor renal function , I/O's, -Free water flushes to 300 cc discontinued 11/17 BUN elevation may in part be secondary to steroids. -Lasix as per above. -Renal US: Probable complicated cyst midpole left kidney measuring 2.0 cm. No evidence of hydronephrosis. - Lasix discontinued, patient home med resumed Torsemide, edema resolved ID: Healthcare associated pneumonia Sepsis Persistent fevers Leukocytosis - (thromobphlebitis vs steroids vs infectious) -Acetaminophen 650mg for temp greater than 101.0 -Sputum culture11/08 -budding yeast with pseudohyphae -Sputum Culture 11/09-Rare gram negative robin -Blood cultures11/08- NGTD -Abx per ID, Dr. Phan, management of antibiotic regimen (vancomycin, azithromycin, fluconazole). -Ordered C diff but now no further BMs. Pancultured 11/14, pending Microbiology: 11/05blood culture 2 setsno growth today 11/07blood cultureno growth today 11/08blood culture 2 setsno growth today 11/09pending culturenegative 11/14blood culture 2 sets pending 11/14sputum culturepending 11/14urinalysis without evidence of infection. -US11/12 bilateral upper and lower extremities-superficial nonocclusive thrombus right cephalic vein HEME: -Monitor CBC, CMP ENDO: Hypokalemia Hyperglycemia of critical illness -Electrolyte replacement per protocol. Sliding scale insulin if needed -On Carpenter Thyroid 90mg daily, TSH: 0.123 -Glucose monitoring every 6 hours per ICU protocol -Sliding-scale insulin MSK: Clinical illness polyneuropathy -PT-functional maintenance daily -Will defer advancement of activity OOB to chair to NSGY, as patient not wearing thoracic brace -OT consult - Multi-Podus boots PROPH: -Bilateral lower extremity SCDs. Subcutaneous heparin 5000 q8 for DVT prophylaxis. IV Protonix for GI prophylaxis LINES: -Utilize peripheral IVs. No invasive lines. Level 3 Discussed with WIRELINE FIELD OPERATOR at bedside and Dr. Rodríguez(). Physician Megha Pastrana MD Nov 18, 2016 15:21
[2016-11-18] MEDS: traMADol HCL 50 MG TAB PO SCH ×2 (16:00→21:18)
[2016-11-18] MEDS: MONTELUKAST SODIUM 10 MG TAB PO SCH (21:18)
[2016-11-19] VITALS (18 sets, daily range): BP systolic 112–162; BP diastolic 66–90; PULSE 54–107; RESP 16–30; TEMP 99.2–99.5; O2SAT 89–100
[2016-11-19] MEDS: LABETALOL HCL 100 MG/20 ML VIAL IV PUSH PRN ×3 (01:12→14:14)
[2016-11-19] MEDS: methylPREDNISolone SOD SUCC 40 MG/1 ML VIAL IV SCH ×2 (01:13→12:59)
[2016-11-19] MEDS: HIGH DOSE INSULIN NOVOLOG SUPPLEMENTAL SCALE SQ SCH ×5 (02:33→21:00)
[2016-11-19] MEDS: RESP: ALBUTEROL 2.5 MG/IPRATROPIUM 0.5 MG NEB (SCH) NEB ×6 (03:12→23:44)
[2016-11-19] MEDS: traMADol HCL 50 MG TAB PO SCH ×4 (03:27→22:00)
[2016-11-19] MEDS: DILTIAZEM HCL 60 MG TAB PO SCH ×4 (04:15→22:55)
[2016-11-19] MEDS: THYROID 30 MG TAB PO SCH (04:15)
[2016-11-19] MEDS: HEPARIN SODIUM - SQ 10,000 UNITS/ML VIAL SQ SCH ×3 (04:15→22:51)
[2016-11-19] MEDS: cloNIDine HCL 0.1 MG TAB PO PRN (04:15)
[2016-11-19 04:47] LABS: MEAN CELL VOLUME 96.8 FL (80.0-100.0); MEAN CORPUSCULAR HEMOGLOBIN 32.7 PG (27.0-34.0); MEAN CORPUSCULAR HGB CONC 33.8 % (32.0-36.0); PLATELET COUNT 258 TH/MM3 (150-450); RED BLOOD COUNT 3.61 MIL/MM3 (4.00-5.30); RED CELL DISTRIBUTION WIDTH 13.9 % (11.6-17.2); REVIEW FLAG FINAL; WHITE BLOOD COUNT 21.5 TH/MM3 (4.0-11.0)
[2016-11-19 05:13] LABS: BICARBONATE 34.3 MEQ/L (21.0-32.0); MAGNESIUM 2.2 MG/DL (1.5-2.5); POTASSIUM 3.4 MEQ/L (3.5-5.1)
[2016-11-19] MEDS: AZTREONAM INJ 1,000 MG in SODIUM CHLORIDE 0.9% INJ 100 ML IV SCH ×3 (05:55→22:50)
[2016-11-19] MEDS: POTASSIUM CHLOR 20 MEQ PREMIX 100 ML IV PRN (06:39)
[2016-11-19] MEDS: CHLORHEXIDINE 0.12% (ORAL KIT) 15 ML CUP MT SCH ×2 (08:00→20:00)
[2016-11-19] MEDS: RESP: BUDESONIDE 0.5 MG/2 ML NEB NEB SCH ×2 (08:42→19:46)
[2016-11-19] MEDS: LEVOCETIRIZINE 5 MG PO SCH (09:00)
[2016-11-19] MEDS: SODIUM CHLORIDE 0.9% FLUSH 5 ML FLUSH FLUSH SCH ×2 (09:00→21:00)
[2016-11-19] MEDS: POLYETHYLENE GLYCOL 17 GM PKG PO SCH ×2 (09:00→22:52)
[2016-11-19] MEDS: CETIRIZINE HCL SYRUP 10 MG/10 ML UDC TUBE SCH (09:22)
[2016-11-19] MEDS: buPROPion HCL 100 MG TAB PO SCH ×2 (09:22→22:52)
[2016-11-19] MEDS: METOPROLOL TARTRATE 25 MG TAB PO SCH ×2 (09:22→22:52)
[2016-11-19] MEDS: DOCUSATE SODIUM 100 MG CAP PO SCH ×2 (09:22→21:00)
[2016-11-19] MEDS: TIOTROPIUM BROMIDE 18 MCG INH INH SCH (09:23)
[2016-11-19] MEDS ORDERED: VANCOMYCIN 1,500 MG/NS 500 ML IV SCH ×2 (12:00)
[2016-11-19] MEDS: FLUCONAZOLE 200 MG PREMIX BAG 100 ML IV SCH (12:59)
--- NOTE | 2016-11-19 13:31 | HHI.IDPN ---
Note Infectious Disease Note Patient is opens eyes to voice. No distress. On high flow O2 but now being put on CPAP. Low grade temp. at bedside. WBC still elevated. PAST MEDICAL HISTORY 1. Asthma. 2. Pulmonary fibrosis. 3. Gastroesophageal reflux disease. 4. Hemochromatosis. 5. Acid reflux. 6. Cholecystectomy. 7. Lumbar spine surgery. 8. Cervical spine surgery. 9. Hysterectomy. 10. Left parotid gland surgery. 11. Breast reduction. 12. Tonsillectomy. 13. Anterior cervical fusion of C6-C7. ALLERGIES 1. BETADINE. 2. IODINE. 3. THE PATIENT'S REPORTS SHE GETS UPSET STOMACH WITH CIPROFLOXACIN BUT THAT SHE IS UNABLE TO TOLERATE IV CIPROFLOXACIN. ANTIBIOTICS: Aztreonam. Fluconazole. Other meds reviewed. OBJECTIVE: Vital Signs Date Time Temp Pulse Resp B/P Pulse Ox O2 Delivery O2 Flow Rate FiO2 11/19/16 10:00 55 11/19/16 08:00 99.3 61 28 162/88 91 11/19/16 08:00 55 11/19/16 07:00 90 Nasal Cannula 70 11/19/16 06:00 55 11/19/16 04:00 99.5 56 30 162/72 90 11/19/16 04:00 56 11/19/16 02:00 54 11/19/16 00:00 99.3 62 22 153/74 90 11/19/16 00:00 62 11/18/16 22:00 59 11/18/16 20:00 99.4 61 20 154/73 91 11/18/16 20:00 77 11/18/16 19:32 93 High Flow Nasal Cannula 25.00 65 11/18/16 19:00 91 Nasal Cannula 70 11/18/16 18:00 99.3 61 23 174/78 90 11/18/16 18:00 61 11/18/16 16:00 59 11/18/16 14:00 61 11/18/16 11/18/16 11/19/16 15:00 23:00 07:00 Intake Total 300 ml 100 ml 100 ml Output Total 1000 ml 625 ml 550 ml Balance -700 ml -525 ml -450 ml Intake Oral 200 ml 0 ml 0 ml IV Total 100 ml 100 ml 100 ml Output Urine Total 1000 ml 625 ml 550 ml # Bowel Movements 0 0 0 Laboratory Tests Test 11/19/16 03:26 White Blood Count 21.5 TH/MM3 Red Blood Count 3.61 MIL/MM3 Hemoglobin 11.8 GM/DL Hematocrit 35.0 % Mean Corpuscular Volume 96.8 FL Mean Corpuscular Hemoglobin 32.7 PG Mean Corpuscular Hemoglobin 33.8 % Concent Red Cell Distribution Width 13.9 % Platelet Count 258 TH/MM3 Mean Platelet Volume 10.6 FL Laboratory Tests Test 11/19/16 03:26 Sodium Level 146 MEQ/L Potassium Level 3.4 MEQ/L Chloride Level 107 MEQ/L Carbon Dioxide Level 34.3 MEQ/L Anion Gap 5 MEQ/L Blood Urea Nitrogen 35 MG/DL Creatinine 1.08 MG/DL Estimat Glomerular Filtration 50 ML/MIN Rate Random Glucose 102 MG/DL Calcium Level 8.7 MG/DL Phosphorus Level 3.1 MG/DL Magnesium Level 2.2 MG/DL IMAGING: Chest X-Ray 11/15/16 0000 Signed Impressions: Service Date/Time: Tuesday, November 15, 2016 11:02 - CONCLUSION: No significant interval change. Roland Maier MD PHYSICAL EXAMINATION GENERAL: No acute distress. HEENT: No icterus. Dry mucosa. NECK: No adenopathy or swelling. The patient has a neck collar in place. LUNGS: Decreased breath sounds, some basilar rhonchi. HEART: Regular S1 and S2. No audible murmurs. ABDOMEN: Decreased bowel sounds, soft. EXTREMITIES: No edema. Pulses 2+ radial and dorsalis pedis. SKIN: No rash. NEUROLOGIC: non focal. PSYCHIATRIC: Calm and cooperative. IMPRESSION 1. Fever, questionable etiology. Temp improved after stopping beta lactam abx. ? drug fever. Now low grade fever. 2. Acute respiratory failure. Extubated. 3. Leukocytosis. ? due to PNA. WBC still elevated. Also has superficial distal r. cephalic vein thrombus. Also on Solumedrol. However still has abnormal CXR. ? result of pulmonary fibrosis. 4. Sepsis on admission indicated by elevated heart rate, elevated temperature, elevated white blood cell count. Source unclear but likely pulmonary. 5. Abnormal chest x-ray with bilateral interstitial infiltrates suggesting possible pneumonia versus COPD or fibrosis. Negative sputum culture. RECOMMENDATIONS 1. Continue Aztreonam for gram negative pulmonary coverage. 2. Continue Fluconazole. 3. Monitor white blood cell count and temp. 4. Monitor clinical status. 5. Reculture if temp spike > 100.5. Roberto Phan MD Nov 19, 2016 13:31
[2016-11-19] MEDS: ALPRAZolam 0.5 MG TAB PO PRN (14:14)
[2016-11-19] MEDS ORDERED: MORPHINE SULFATE 4 MG/ML INJ IV PUSH ONE (14:30)
[2016-11-19] MEDS ORDERED: FUROSEMIDE 40 MG/4 ML VIAL IV PUSH ONE (14:30)
[2016-11-19 14:50] LABS: BLOOD GAS CARBOXYHEMOGLOBIN 1.4 % (0-4); BLOOD GAS HCO3 28 mmol/L (22-26); BLOOD GAS METHEMOGLOBIN 1.2 % (0-2); BLOOD GAS O2 HGB SATURATION 82 % (90-100); BLOOD GAS OXYGEN CONTENT 14.9 Vol % (12.0-20.0); BLOOD GAS PCO2 37 mmHg (38-42); BLOOD GAS PO2 49 mmHg (61-120); CRITICAL VALUE YES; TEMP CORR TO 98.6
[2016-11-19 14:51] LABS: DRAW SITE RT RADIAL; FIO2 60 %; LITER FLOW 30 L/M; NUMBER OF ARTERIAL PUNCTURES 1; OXYGEN DEVICE NASAL CANNULA; STAT YES; ULNAR PULSE Y
[2016-11-19] MEDS: PANTOPRAZOLE SODIUM 40 MG VIAL IV PUSH SCH (15:00)
[2016-11-19] MEDS ORDERED: ROCURONIUM INJ 50 MG/5 ML VIAL ONE (15:57)
[2016-11-19] MEDS ORDERED: ETOMIDATE 40 MG/20 ML VIAL ONE (15:58)
[2016-11-19] MEDS ORDERED: hydrALAZINE HCL 20 MG/ML VIAL IV PUSH ONE (16:00)
[2016-11-19] MEDS ORDERED: fentaNYL DRIP 250 ML IV SCH (16:00)
[2016-11-19] MEDS ORDERED: ROCURONIUM INJ 50 MG/5 ML VIAL IV ONE ×2 (16:00→17:45)
[2016-11-19] MEDS ORDERED: fentaNYL 2,500 MCG/NS 250 ML IV SCH (16:15)
--- NOTE | 2016-11-19 17:26 | RADRPT ---
EXAM DATE/TIME: 11/19/2016 16:57 [facility] COMPARISON: CHEST SINGLE AP, November 15, 2016, 11:02. INDICATIONS : Eval post intubation. MEDICAL HISTORY : Sepsis. Pneumonia. SURGICAL HISTORY : None. ENCOUNTER: Subsequent ACUITY: 3 days PAIN SCORE: Non-responsive. LOCATION: chest FINDINGS: Single AP view of the chest. Endotracheal tube is in place with the tip 2.4 cm above the dhara. Bila teral interstitial pulmonary opacity is again seen, slightly decreased from the prior study of 017. No evidence of pleural effusion or pneumothorax. Cardiomediastinal silhouette within normal limi ts. CONCLUSION: Endotracheal tube in place. Persistent bilateral interstitial pulmonary opacity. Curt Acosta MD on November 19, 2016 at 17:24 Board Certified Radiologist. This report was verified electronically.
[2016-11-19] MEDS ORDERED: PROPOFOL 1000 MG/100 ML IV SCH (17:45)
--- NOTE | 2016-11-19 18:07 | PD.PROCEDR ---
Procedure Note Procedure Endotracheal Intubation Diagnosis: Acute Hypoxic respiratory failure Indications: same Consent: Obtained from Anesthesia: Propofol, fentanyl, rocuronium Description of the Procedure: The patient was positioned with head and neck in neutral position. Cervical in- line stabilization performed, anterior [place] J collar removed. Pre-oxygenation was performed using a BVM 100%. Anesthesia was induced via rapid sequence. A glide scope 4 was used for laryngoscopy and a Grade 1 view was obtained. A 7.5 cuffed endotracheal tube was inserted atraumatically through the vocal cords. Confirmation of correct endotracheal tube placement was made by equal and bilateral breath sounds and colorimetric CO2 detection. Anterior [place] J collar secured .The endotracheal tube was secured at 21 cm at the teeth. There were no immediate complications noted. The patient remained hemodynamically stable throughout the procedure. Postprocedure, spontaneous ventilation, movement of extremities 4 A chest x-ray has been ordered. I personally performed the procedure. Megha Quintero MD Nov 19, 2016 18:07
--- NOTE | 2016-11-19 18:14 | PD.PROCEDR ---
Procedure Note Procedure Procedure: Fiberoptic Bronchoscopy Diagnosis: Hypoxic respiratory failure, persistent fevers Indications: same Consent: Obtained from Anesthesia: Propofol, Fentanyl Description of the Procedure: The patient was sedated and mechanically ventilated. The patient was placed on 100% FIO2 and a volume control mode of ventilation. The fiberoptic bronchoscopy was inserted via 7.5 ETT. The trachea, right and left mainstem bronchi, and sub-segmental bronchi were evaluated. The endobronchial anatomy was normal. Findings: Unremarkable BAL samples: 2 obtained The patient tolerated the procedure well with no hemodynamic instability or hypoxia. There were no immediate complications noted. At the conclusion of the procedure, the patient was placed back on their pre-procedure ventilatory settings. There was minimal EBL. A chest x-ray has been ordered. I personally performed the procedure. Megha Quintero MD Nov 19, 2016 18:14
[2016-11-19 18:15] LABS: BLOOD GAS BASE EXCESS 4.4 mmol/L (-2-2); BLOOD GAS CARBOXYHEMOGLOBIN 0.5 % (0-4); BLOOD GAS HCO3 31 mmol/L (22-26); BLOOD GAS METHEMOGLOBIN 1.1 % (0-2); BLOOD GAS O2 HGB SATURATION 97 % (90-100); BLOOD GAS OXYGEN CONTENT 20.7 Vol % (12.0-20.0); BLOOD GAS PCO2 76 mmHg (38-42); BLOOD GAS PO2 300 mmHg (61-120); BLOOD GAS TOTAL HGB 14.7 G/DL (12.0-16.0); CRITICAL VALUE YES; TEMP CORR TO 98.6
[2016-11-19 18:16] LABS: OXYGEN DEVICE VENTILATOR; VENT SETTINGS PRVC/AC
[2016-11-19 18:17] LABS: DRAW SITE LT RADIAL; FIO2 100 %; NUMBER OF ARTERIAL PUNCTURES 1; STAT NO; ULNAR PULSE PRESENT
[2016-11-19 18:40] LABS: BLOOD GAS BASE EXCESS 4.7 mmol/L (-2-2); BLOOD GAS HCO3 29 mmol/L (22-26); BLOOD GAS METHEMOGLOBIN 1.1 % (0-2); BLOOD GAS O2 HGB SATURATION 91 % (90-100); BLOOD GAS OXYGEN CONTENT 18.8 Vol % (12.0-20.0); BLOOD GAS PCO2 47 mmHg (38-42); BLOOD GAS PO2 77 mmHg (61-120); BLOOD GAS TOTAL HGB 14.6 G/DL (12.0-16.0); TEMP CORR TO 98.6
[2016-11-19 18:41] LABS: CRITICAL VALUE NO; OXYGEN DEVICE VENTILATOR
[2016-11-19 18:42] LABS: DRAW SITE LT RADIAL; FIO2 100 %; NUMBER OF ARTERIAL PUNCTURES 1; STAT NO; ULNAR PULSE PRESENT; VENT SETTINGS PC
--- NOTE | 2016-11-19 19:23 | HHI.CCPN ---
Subjective Remarks/Hospital Course Patient is a 71-year-old female with history of pulmonary fibrosis, asthma, probable COPD on home oxygen who had a recent fall at home and sustained C7/ T1 fractures. She was evaluated by neurosurgery and conservatively managed and placed in a cervical collar. She was discharged home on 11/04/16. The pt developed inability to ambulate at home and also had urinary retention. Patient 's also noticed that she had been more confused. ER workup included a CT of the head which was negative, CT of the abdomen pelvis showed markedly distended bladder with mild to moderate hydronephrosis. Sanders catheter was inserted. Chest x-ray showed increasing bilateral infiltrates. Patient was admitted to the hospitalist service, on broad-spectrum antibiotics with Zosyn and vancomycin, breathing treatments. Neurology Dr. Xiong was also consulted Today was noted to have increasing shortness of breath today, tachypnea and hypoxia requiring a partial nonrebreather. Also noted to have A flutter with rapid ventricular response. Cardizem boluses 2 was given on Cardizem infusion was started. Because of her worsening respiratory failure patient was moved to the ICU. Critical care medicine consulted and I immediately evaluated the patient. She is in moderate distress on partial nonrebreather breathing 35-40/ m. Chest exam shows bilateral crackles and wheezes. I have added Solu-Medrol and scheduled breathing treatments and ordered BiPAP 10 over 5. I explained to the patient and the that patient may need endotracheal intubation and mechanical ventilation if she is not improving with BiPAP. 11/07 Patient is sedated with Diprivan and intubated. Afebrile. On Cardizem drip 5mg/hr, for MRI spine and CT thorax today. 11/08 Patient is sedated with Fentnayl and intubated. Afebrile. Renal function worse today with Cr: 1.65 from 1.15 11/09 Tmax 102.2. The patient's sputum culture grew preliminarily budding yeast with pseudohyphae. Diflucan initiated yesterday white count trending down. Lasix discontinued yesterday secondary to elevated creatinine level. 11/10 Afebrile. Able to wean oxygenation to FiO2 of 40% today. CPAP trials plan for today. The patient was noted to be hypernatremic free water flushes were added to her tube feedings. Creatinine slightly improved today. PT consulted Functional maintenance with specific requirements to be referred to neurosurgery for restrictions of any type of activities regarding functional maintenance. 11/11 Tmax 101.7. Patient continues to have persistent fevers, on antibiotic therapy, ID consulted,Dr Phan, appreciate recommendations. The patient has elevations in heart rate with activity/movement, received 2 doses of metoprolol with some diminution, from 160 to 90's yesterday. Overnight the patient's heart rate remained in the 120's. CPAP trials were initiated yesterday the patient was able to maintain the trial for approximately 4 hours. 11/12 Persistent fever last 24 hours, patient placed on a cooling blanket. Antibiotics adjusted per ID, Dr. Phan. Ultrasound Doppler obtained bilateral upper and lower extremities results superficial thrombus white distal cephalic vein. The patient was maintained on CPAP approximately 9 hours yesterday. Fentanyl infusion resumed today, patient complained of pain. Scheduled by mouth narcotics initiated. 11/13 CPAP trials lasted 11 hours. Patient continues to have fevers on a cooling blanket, Dr. Phan managing antibiotic regimen. Patient can continuously complain of pain, scheduled pain meds multimodal therapy approach initiated. 11/14 Was on CPAP 10/8 FiO2 55% for several hours and then terminated due to desaturation. WBC up to 22.9 without fever. No significant respiratory secretions. Had diarrhea yesterday but now RN reports no BM today after holding bowel regimen. Abdomen benign and tolerating tube feeds. Check for C diff if has a loose stool. Panculture sent. updated at bedside. Has no invasive lines. Subjective: 11/15 Diuresed net negative 1 L last shift following lasix. Creatinine downtrend to 1.19. Sodium down to 150. Received 6 am dose of Lasix. FiO2 weaned to 45%. WBC down 17. Afebrile. Placed on CPAP 5/5 and TV 550 and RSBI 30s. Sats 89-92% on 50%. 11/16 Tmax in 100.1. The patient continues today on CPAP trial PaO2 65 on FiO2 of 55%. The patient has been diuresed over the last several days, sodium is down trending now 145 tube feeds are off, will plan for a trial of extubation. As discussed with the Dr. Rodríguez that the patient possibly will need tracheostomy. Dr. Aguilera consulted for possible tracheostomy. 11/17 Afebrile. The patient was extubated yesterday afternoon .The patient tolerated BiPAP overnight, maintaining O2 sat 9294%, on FiO2 of 50%. Plan to transition to high flow nasal cannula if tolerated. 11/18 The patient tolerated-flow nasal cannula for the last 24 hours. Attempts at weaning FiO2 less than 65% unsuccessful at this point. O2 sat 8892%. Patient unable to perform incentive spirometry at this time. 11/19 The patient had respiratory decompensation this afternoon, requiring emergent intubation. The patient also underwent fiberoptic bronchoscopy which was unremarkable, and obtained BAL specimens as she continues to have fevers. Objective Vital Signs Date Time Temp Pulse Resp B/P Pulse Ox O2 Delivery O2 Flow Rate FiO2 11/19/16 17:45 94 100 11/19/16 16:00 71 11/19/16 09:20 High Flow Nasal Cannula 30.00 11/19/16 08:00 99.3 28 162/88 Intake and Output 11/18/16 11/18/16 11/19/16 08:00 16:00 00:00 Intake Total 122 ml 300 ml 100 ml Output Total 750 ml 1000 ml 625 ml Balance -628 ml -700 ml -525 ml Result Diagram: 11/19/16 0326 11/19/16 0326 Other Results Laboratory Tests Test 11/19/16 13:05 Blood Gas Puncture Site RT RADIAL Blood Gas Patient Temperature 98.6 Blood Gas HCO3 28 mmol/L (22-26) Blood Gas Base Excess 5.0 mmol/L (-2-2) Blood Gas Oxygen Saturation 82 % (90-100) Arterial Blood pH 7.49 (7.380-7.420) Arterial Blood Partial 37 mmHg (38-42) Pressure CO2 Arterial Blood Partial 49 mmHg Pressure O2 (61-120) Arterial Blood Oxygen Content 14.9 Vol % (12.0-20.0) Arterial Blood 1.4 % (0-4) Carboxyhemoglobin Arterial Blood Methemoglobin 1.2 % (0-2) Blood Gas Hemoglobin 13.0 G/DL (12.0-16.0) Oxygen Delivery Device NASAL CANNULA Blood Gas Liter Flow 30 L/M Blood Gas Inspired Oxygen 60 % Imaging Last Impressions Chest X-Ray 11/15/16 0000 Signed Impressions: Service Date/Time: Tuesday, November 15, 2016 11:02 - CONCLUSION: No significant interval change. Roland Maier MD Upper Extremity Ultrasound 11/11/16 0000 Signed Impressions: Service Date/Time: Friday, November 11, 2016 21:51 - CONCLUSION: 1. No evidence of DVT. 2. Focal superficial thrombosis involving the distal right cephalic vein. Roland Maier MD Lower Extremity Ultrasound 11/11/16 0000 Signed Impressions: Service Date/Time: Friday, November 11, 2016 21:22 - CONCLUSION: Negative exam with no evidence of deep venous thrombosis. Rex Corcoran MD Liver Ultrasound 11/09/16 0000 Signed Impressions: Service Date/Time: Wednesday, November 09, 2016 08:03 - CONCLUSION: 1. No acute abnormality. 2. Prior cholecystectomy. Common bile duct is within the normal range in terms of size for patient status post cholecystectomy. 3. Dystrophic calcification involving the right lobe of the liver. Scott Mittal Jr., MD Thoracic Spine MRI 11/07/16 0000 Signed Impressions: Service Date/Time: Monday, November 07, 2016 10:23 - CONCLUSION: 1. There is a fracture of the T1 vertebral body and T5 vertebral body. No significant height loss is present and there is no retropulsion of any fracture fragment. No canal stenosis is present. 2. Please refer to today's chest CT examination report for description of the pulmonary findings. Jimmy Lara MD Renal Ultrasound 11/06/16 0000 Signed Impressions: Service Date/Time: Sunday, November 06, 2016 22:24 - CONCLUSION: Probable complicated cyst midpole left kidney measuring 2.0 cm. Otherwise negative exam. No evidence of hydronephrosis. Scott Cantor MD Chest CT 11/06/16 0000 Signed Impressions: Service Date/Time: Monday, November 07, 2016 10:50 - CONCLUSION: Severe diffuse geographic areas of groundglass attenuation bilaterally with trace bilateral pleural effusions. The pattern is nonspecific but can be seen with infection and ARDS among other etiologies. Jimmy Lara MD Head CT 11/04/16 2326 Signed Impressions: Service Date/Time: Friday, November 04, 2016 23:45 - CONCLUSION: No acute intracranial findings. Jimmy Felton MD Abdomen/Pelvis CT 11/04/16 0000 Signed Impressions: Service Date/Time: Friday, November 04, 2016 23:48 - CONCLUSION: Markedly dilated urinary bladder with mild-moderate bilateral hydronephrosis Jimmy Felton MD Last Impressions Chest X-Ray 11/12/16 0600 Signed Impressions: Service Date/Time: October 02:40 - CONCLUSION: No significant interval change. Roland Maier MD Upper Extremity Ultrasound 11/11/16 0000 Signed Impressions: Service Date/Time: Friday, November 11, 2016 21:51 - CONCLUSION: 1. No evidence of DVT. 2. Focal superficial thrombosis involving the distal right cephalic vein. Roland Maier MD Lower Extremity Ultrasound 11/11/16 0000 Signed Impressions: Service Date/Time: Friday, November 11, 2016 21:22 - CONCLUSION: Negative exam with no evidence of deep venous thrombosis. Rex Corcoran MD Liver Ultrasound 11/09/16 0000 Signed Impressions: Service Date/Time: Wednesday, November 09, 2016 08:03 - CONCLUSION: 1. No acute abnormality. 2. Prior cholecystectomy. Common bile duct is within the normal range in terms of size for patient status post cholecystectomy. 3. Dystrophic calcification involving the right lobe of the liver. Scott Mittal Jr., MD Thoracic Spine MRI 11/07/16 0000 Signed Impressions: Service Date/Time: Monday, November 07, 2016 10:23 - CONCLUSION: 1. There is a fracture of the T1 vertebral body and T5 vertebral body. No significant height loss is present and there is no retropulsion of any fracture fragment. No canal stenosis is present. 2. Please refer to today's chest CT examination report for description of the pulmonary findings. Jimmy Lara MD Renal Ultrasound 11/06/16 0000 Signed Impressions: Service Date/Time: Sunday, November 06, 2016 22:24 - CONCLUSION: Probable complicated cyst midpole left kidney measuring 2.0 cm. Otherwise negative exam. No evidence of hydronephrosis. Scott Cantor MD Chest CT 11/06/16 0000 Signed Impressions: Service Date/Time: Monday, November 07, 2016 10:50 - CONCLUSION: Severe diffuse geographic areas of groundglass attenuation bilaterally with trace bilateral pleural effusions. The pattern is nonspecific but can be seen with infection and ARDS among other etiologies. Jimmy Lara MD Head CT 11/04/16 5376 Signed Impressions: Service Date/Time: Friday, November 04, 2016 23:45 - CONCLUSION: No acute intracranial findings. Jimmy Felton MD Abdomen/Pelvis CT 11/04/16 0000 Signed Impressions: Service Date/Time: Friday, November 04, 2016 23:48 - CONCLUSION: Markedly dilated urinary bladder with mild-moderate bilateral hydronephrosis Jimmy Felton MD Last Impressions Chest X-Ray 11/12/16 0600 Signed Impressions: Service Date/Time: October 02:40 - CONCLUSION: No significant interval change. Roland Maier MD Upper Extremity Ultrasound 11/11/16 0000 Signed Impressions: Service Date/Time: Friday, November 11, 2016 21:51 - CONCLUSION: 1. No evidence of DVT. 2. Focal superficial thrombosis involving the distal right cephalic vein. Roland Maier MD Lower Extremity Ultrasound 11/11/16 0000 Signed Impressions: Service Date/Time: Friday, November 11, 2016 21:22 - CONCLUSION: Negative exam with no evidence of deep venous thrombosis. Rex Corcoran MD Liver Ultrasound 11/09/16 0000 Signed Impressions: Service Date/Time: Wednesday, November 09, 2016 08:03 - CONCLUSION: 1. No acute abnormality. 2. Prior cholecystectomy. Common bile duct is within the normal range in terms of size for patient status post cholecystectomy. 3. Dystrophic calcification involving the right lobe of the liver. Scott Mittal Jr., MD Thoracic Spine MRI 11/07/16 0000 Signed Impressions: Service Date/Time: Monday, November 07, 2016 10:23 - CONCLUSION: 1. There is a fracture of the T1 vertebral body and T5 vertebral body. No significant height loss is present and there is no retropulsion of any fracture fragment. No canal stenosis is present. 2. Please refer to today's chest CT examination report for description of the pulmonary findings. Jimmy Lara MD Renal Ultrasound 11/06/16 0000 Signed Impressions: Service Date/Time: Sunday, November 06, 2016 22:24 - CONCLUSION: Probable complicated cyst midpole left kidney measuring 2.0 cm. Otherwise negative exam. No evidence of hydronephrosis. Scott Cantor MD Chest CT 11/06/16 0000 Signed Impressions: Service Date/Time: Monday, November 07, 2016 10:50 - CONCLUSION: Severe diffuse geographic areas of groundglass attenuation bilaterally with trace bilateral pleural effusions. The pattern is nonspecific but can be seen with infection and ARDS among other etiologies. Jimmy Lara MD Head CT 11/04/16 2326 Signed Impressions: Service Date/Time: Friday, November 04, 2016 23:45 - CONCLUSION: No acute intracranial findings. Jimmy Felton MD Abdomen/Pelvis CT 11/04/16 Signed Impressions: Service Date/Time: Friday, November 04, 2016 23:48 - CONCLUSION: Markedly dilated urinary bladder with mild-moderate bilateral hydronephrosis Jimmy Felton MD Last Impressions Liver Ultrasound 11/09/16 Signed Impressions: Service Date/Time: Wednesday, November 09, 2016 08:03 - CONCLUSION: 1. No acute abnormality. 2. Prior cholecystectomy. Common bile duct is within the normal range in terms of size for patient status post cholecystectomy. 3. Dystrophic calcification involving the right lobe of the liver. Sctot Mittal Jr., MD Chest X-Ray 11/09/16 Signed Impressions: Service Date/Time: Wednesday, November 09, 2016 03:36 - CONCLUSION: Mild improvement in the bilateral interstitial infiltrates. Roland Maier MD Thoracic Spine MRI 11/07/16 0000 Signed Impressions: Service Date/Time: Monday, November 07, 2016 10:23 - CONCLUSION: 1. There is a fracture of the T1 vertebral body and T5 vertebral body. No significant height loss is present and there is no retropulsion of any fracture fragment. No canal stenosis is present. 2. Please refer to today's chest CT examination report for description of the pulmonary findings. Jimmy Lara MD Renal Ultrasound 11/06/16 0000 Signed Impressions: Service Date/Time: Sunday, November 06, 2016 22:24 - CONCLUSION: Probable complicated cyst midpole left kidney measuring 2.0 cm. Otherwise negative exam. No evidence of hydronephrosis. Scott Cantor MD Chest CT 11/06/16 0000 Signed Impressions: Service Date/Time: Monday, November 07, 2016 10:50 - CONCLUSION: Severe diffuse geographic areas of groundglass attenuation bilaterally with trace bilateral pleural effusions. The pattern is nonspecific but can be seen with infection and ARDS among other etiologies. Jimmy Lara MD Head CT 11/04/162325 Signed Impressions: Service Date/Time: Friday, November 04, 2016 23:45 - CONCLUSION: No acute intracranial findings. Jimmy Felton MD Abdomen/Pelvis CT 11/04/16 0000 Signed Impressions: Service Date/Time: Friday, November 04, 2016 23:48 - CONCLUSION: Markedly dilated urinary bladder with mild-moderate bilateral hydronephrosis Jimmy Felton MD Last Impressions Chest X-Ray 11/07/16 0600 Signed Impressions: Service Date/Time: Monday, November 07, 2016 05:03 - CONCLUSION: Persistent and stable bilateral air space opacities in the medial lungs. Scott Cantor MD Thoracic Spine MRI 11/07/16 0000 Signed Impressions: Service Date/Time: Monday, November 07, 2016 10:23 - CONCLUSION: 1. There is a fracture of the T1 vertebral body and T5 vertebral body. No significant height loss is present and there is no retropulsion of any fracture fragment. No canal stenosis is present. 2. Please refer to today's chest CT examination report for description of the pulmonary findings. Jimmy Lara MD Renal Ultrasound 11/06/16 0000 Signed Impressions: Service Date/Time: Sunday, November 06, 2016 22:24 - CONCLUSION: Probable complicated cyst midpole left kidney measuring 2.0 cm. Otherwise negative exam. No evidence of hydronephrosis. Scott Cantor MD Chest CT 11/06/16 0000 Signed Impressions: Service Date/Time: Monday, November 07, 2016 10:50 - CONCLUSION: Severe diffuse geographic areas of groundglass attenuation bilaterally with trace bilateral pleural effusions. The pattern is nonspecific but can be seen with infection and ARDS among other etiologies. Jimmy Lara MD Head CT 11/04/166 Signed Impressions: Service Date/Time: Friday, November 04, 2016 23:45 - CONCLUSION: No acute intracranial findings. Jimmy Felton MD Abdomen/Pelvis CT 11/04/16 0000 Signed Impressions: Service Date/Time: Friday, November 04, 2016 23:48 - CONCLUSION: Markedly dilated urinary bladder with mild-moderate bilateral hydronephrosis Jimmy Felton MD Objective Remarks GENERAL: Patient is 71 yo female, lethargic, tachypneic SKIN: Warm and dry. HEAD: Normocephalic. EYES: No scleral icterus. No injection or drainage. NECK: Supple, trachea midline. No JVD or lymphadenopathy. Hemphill J C-collar in place CARDIOVASCULAR: Regular rate and rhythm without murmurs, gallops, or rubs. RESPIRATORY: Breath sounds equal bilaterally , rhonchi. Accessory muscle use. GASTROINTESTINAL: Abdomen soft, non-tender, nondistended. MUSCULOSKELETAL: No cyanosis, 1-2+ edema, all extremities. Neuro: Awake, makes eye contact and follows commands with all extremities. Procedures BAL Urinary Catheter: Yes Sanders insert reason: ICU Pt Getting Diuretics Vascular Central Line Catheter: No A/P Assessment and Plan NEURO: Acute metabolic encephalopathy, improved C7-T1 fracture (T1 vertebral body comminuted fracture, bilateral C7 pedicle fracture extending to the right facet. Remote history of anterior C6-C7 and C4-C5 fusion with plate placement. Pain H/O Chronic pain syndrome Pain control -multimodal pain therapy-Roxicodone scheduled every 6 hours, begin fentanyl infusion -GCS 15 -CT head negative for acute findings. - 11/07 MRI spine: Fracture of the T1 vertebral body and T5 vertebral body. - Wellbutrin 150 bid, Xanax 0.5 bid PRN RESP: Acute hypoxemic / hypercapneic respiratory failure Pulmonary fibrosis/COPD exacerbation History of asthma Probable HCAP -Glidescope intubation 1 attempt 11/06 (Dr. Marquez) -Bronchodilators scheduled -Continue Solumedrol 20 mg IV every [address] Escalera, Pulmonary following -home med on hold: Spiriva 18 mcg inhaled daily<Singulair 10 po hs Budesonide 0.5 neb q12. - Pulmonary is following-Dr. Escalera -CT chest showed diffuse GGO b/l -Sputum culture11/08 -budding yeast with pseudohyphae -Sputum Culture 11/09-Rare gram negative rods -Discussed with , holding off on initiation of Xolair at this time due to concern for infection. -Extubated 11/16, placed on BiPAP 01/06 11/18 Reintubation 1 attempt (Dr Quintero), F/U CXR CVS A Flutter with RVR-resolved Fluid overload HTN -Monitor HR and BP keep MAP>65mmHg. On Cardizem 60mg QID, Metoprolol 25mg BID -Echo revealed EF 45-50%, diffuse hypokinesis, cardiology is following, Dr. Barrera -Troponin negative -Esmolol dc'd 11/14 -Lasix 40 mg x 1 dose- Diuresed 2L GI: Constipation-resolved Abdominal Pain -Elevated LFT's, check US liver-no acute abnormality .dystrophic calcification right lobe, common bile duct within normal limits - IV Protonix for GI prophylaxis - Will resume TF-Glucerna 1.5 @, change to goal rate 50 L per hour per nutrition recommendations. Patient previously on soft pureed diet with poor intake -Insert NG tube, follow-up KUB -Obtain Cdiff antigen -Obtain CT- abdomen ,F/U results FEN/RENAL: Hydronephrosis from urinary retention/obstruction Hypernatremia-resolved -Monitor renal function , I/O's, -Free water flushes to 300 cc discontinued 11/17 BUN elevation may in part be secondary to steroids. -Lasix as per above. -Renal US: Probable complicated cyst midpole left kidney measuring 2.0 cm. No evidence of hydronephrosis. - Lasix 40mg x 1 dose ID: Healthcare associated pneumonia Sepsis Persistent fevers Leukocytosis - (thromobphlebitis vs steroids vs infectious) -Acetaminophen 650mg for temp greater than 101.0 -Sputum culture11/08 -budding yeast with pseudohyphae -Sputum Culture 11/09-Rare gram negative robin -Blood cultures11/08- NGTD -Abx per ID, Dr. Phan, management of antibiotic regimen (vancomycin, azithromycin, fluconazole). -Ordered C diff but now no further BMs. Pancultured 11/14, pending Microbiology: 11/05blood culture 2 setsno growth today 11/07blood cultureno growth today 11/08blood culture 2 setsno growth today 11/09pending culturenegative 11/14blood culture 2 sets pending 11/14sputum culturepending 11/14urinalysis without evidence of infection. -US11/12 bilateral upper and lower extremities-superficial nonocclusive thrombus right cephalic vein -Cdiff HEME: -Monitor CBC, CMP ENDO: Hypokalemia Hyperglycemia of critical illness -Electrolyte replacement per protocol. Sliding scale insulin if needed -On [place] Thyroid 90mg daily, TSH: 0.123 -Glucose monitoring every 6 hours per ICU protocol -Sliding-scale insulin MSK: Clinical illness polyneuropathy -PT-functional maintenance daily -Will defer advancement of activity OOB to chair to NSGY, as patient not wearing thoracic brace -OT consult - Multi-Podus boots PROPH: -Bilateral lower extremity SCDs. Subcutaneous heparin 5000 q8 for DVT prophylaxis. IV Protonix for GI prophylaxis LINES: -Utilize peripheral IVs. No invasive lines. my billing statement This patient remains critically ill with one or more organ systems which are or may become a threat to life. I have spent in excess of 60 minutes discontinuously in the care and management of this patient. This time is exclusive of procedures, and includes, but is not limited to, evaluation of the patient, review of the medical record, discussions with family, consultants, nursing staff, or respiratory therapy, and documentation in the medical record. Discussed with [employer] W[employer]ER at bedside and Dr. Rodríguez(). Physician Megha Pastrana MD Nov 19, 2016 19:23 Megha Quintero MD Nov 19, 2016 19:23
[2016-11-19] MEDS: PROPOFOL 1000 MG/100 ML IV SCH (19:28)
[2016-11-19] MEDS ORDERED: LACTATED RINGER'S 1000 ML INJ 1,000 ML IV SCH (19:45)
[2016-11-19] MEDS: MONTELUKAST SODIUM 10 MG TAB PO SCH (21:00)
--- NOTE | 2016-11-19 21:04 | RADRPT ---
EXAM DATE/TIME: 11/19/2016 20:18 [facility] COMPARISON: CHEST SINGLE AP, November 19, 2016, 16:57. INDICATIONS : Respiratory Failure. MEDICAL HISTORY : Hypertension. Pneumonia SURGICAL HISTORY : None. ENCOUNTER: Subsequent ACUITY: 4 - 6 days PAIN SCORE: Non-responsive. LOCATION: chest FINDINGS: Mild to moderate bibasilar consolidation again noted, not significantly changed. No large effusion se en. No pneumothorax. Endotracheal tube tip is about 3 cm from the dhara, similar to before. CONCLUSION: No significant change. Jimmy Hoffmann MD on November 19, 2016 at 21:01 Board Certified Radiologist. This report was verified electronically.
--- NOTE | 2016-11-19 22:54 | RADRPT ---
EXAM DATE/TIME: 11/19/2016 22:26 [facility] COMPARISON: No previous studies available for comparison. INDICATIONS : Confirm NG Tube Placement. MEDICAL HISTORY : Cardiovascular disease. Hypertension. Pulmonary fibrosis. SURGICAL HISTORY : Breast reduction, spinal fusion. ENCOUNTER: Initial ACUITY: 1 day PAIN SCORE: Non-responsive. LOCATION: Abdomen. FINDINGS: Examination of the abdomen demonstrates a normal bowel gas pattern. No free air is identified. No o rganomegaly is evident. Osseous structures are intact. There is a nasogastric tube with tip right of midline in the expected region of the gastric outlet. S tomach is decompressed. CONCLUSION: Nasogastric tube has its tip near the gastric outlet. Nonobstructive bowel gas pattern. Jimmy Hoffmann MD on November 19, 2016 at 22:52 Board Certified Radiologist. This report was verified electronically.
[2016-11-20] VITALS (18 sets, daily range): BP systolic 91–138; BP diastolic 52–68; PULSE 58–84; RESP 22–26; TEMP 97.7–100; O2SAT 92–98
[2016-11-20] MEDS: methylPREDNISolone SOD SUCC 40 MG/1 ML VIAL IV SCH ×2 (01:34→13:08)
[2016-11-20] MEDS: HIGH DOSE INSULIN NOVOLOG SUPPLEMENTAL SCALE SQ SCH ×5 (02:54→23:19)
[2016-11-20] MEDS: traMADol HCL 50 MG TAB PO SCH (03:00)
[2016-11-20] MEDS: PROPOFOL 1000 MG/100 ML IV SCH (03:58)
[2016-11-20 05:30] LABS: AUTOMATED NEUTROPHIL # 24.3 TH/MM3 (1.8-7.7); BASOPHIL # 0.1 TH/MM3 (0-0.2); BASOPHIL % 0.2 % (0.0-2.0); EOSINOPHIL % 0.1 % (0.0-4.0); HEMATOCRIT 39.6 % (35.0-46.0); HEMO FLAGS DIFF FINAL; LYMPH % 2.9 % (9.0-44.0); LYMPHOCYTE # 0.7 TH/MM3 (1.0-4.8); MEAN CELL VOLUME 98.6 FL (80.0-100.0); MEAN CORPUSCULAR HEMOGLOBIN 32.1 PG (27.0-34.0); MEAN CORPUSCULAR HGB CONC 32.6 % (32.0-36.0); MONO % 3.7 % (0.0-8.0); NEUT % 93.1 % (16.0-70.0); PLATELET COUNT 278 TH/MM3 (150-450); RED BLOOD COUNT 4.02 MIL/MM3 (4.00-5.30); WHITE BLOOD COUNT 26.1 TH/MM3 (4.0-11.0)
[2016-11-20] MEDS: THYROID 30 MG TAB PO SCH (05:30)
[2016-11-20] MEDS: DILTIAZEM HCL 60 MG TAB PO SCH ×4 (05:30→23:23)
[2016-11-20] MEDS: AZTREONAM INJ 1,000 MG in SODIUM CHLORIDE 0.9% INJ 100 ML IV SCH ×3 (05:30→21:54)
[2016-11-20] MEDS: HEPARIN SODIUM - SQ 10,000 UNITS/ML VIAL SQ SCH ×3 (05:30→20:42)
--- NOTE | 2016-11-20 05:35 | RADRPT ---
EXAM DATE/TIME: 11/20/2016 04:24 [place] COMPARISON: CHEST SINGLE AP, November 19, 2016, 20:18. ABDOMEN SINGLE VIEW, November 19, 2016, 22:26. INDICATIONS : Abdominal pain. ORAL CONTRAST: No oral contrast ingested. RADIATION DOSE: 8.60 CTDIvol (mGy) MEDICAL HISTORY : Hypertension. Chronic obstructive pulmonary disease. Hernia, hiatal.hemochromotosis SURGICAL HISTORY : Appendectomy. Hysterectomy.lap flor, hernia repair, back surgery ENCOUNTER: Subsequent ACUITY: 3 weeks PAIN SCALE: Non-responsive LOCATION: abdomen TECHNIQUE: Volumetric scanning of the abdomen was performed. Using automated exposure control and adjustment of the mA and/or kV according to patient size, radiation dose was kept as low as reasonably achievable to obtain optimal diagnostic quality images. FINDINGS: There is respiratory motion artifact. LOWER LUNGS: There is severe airspace consolidation/groundglass attenuation at the lung bases. Pneumomediastinum i s present and there is a small right pneumothorax. LIVER: Homogeneous density without lesion. There is no dilation of the biliary tree. Patient is post cholec ystectomy clips in the gallbladder fossa. SPLEEN: Normal size without lesion. PANCREAS: Within normal limits. KIDNEYS: Normal in size and shape. There is no mass, stone, or hydronephrosis. There is a 17 mm low-density l esion in the lower pole of the left kidney with density measurements consistent with a simple cyst. ADRENAL GLANDS: Within normal limits. AORTA/RETROPERITONEAL: There is no aneurysm or lymphadenopathy. There is mild atherosclerotic disease. BOWEL/MESENTERY: The stomach and visualized small and large bowel demonstrate no abnormality. MUSCULOSKELETAL: There are degenerative changes in the lumbar spine with hardware present related to prior surgery. CONCLUSION: 1. No acute finding is identified within the abdomen on this noncontrast examination. 2. There is severe airspace consolidation/groundglass attenuation in both lung bases. Pneumomediastin um is present and there is a small right pneumothorax. Jimmy Lara MD on November 20, 2016 at 5:29 Board Certified Radiologist. This report was verified electronically.
[2016-11-20 05:39] LABS: BLOOD GAS BASE EXCESS 5.8 mmol/L (-2-2); BLOOD GAS HCO3 30 mmol/L (22-26); BLOOD GAS METHEMOGLOBIN 1.1 % (0-2); BLOOD GAS O2 HGB SATURATION 89 % (90-100); BLOOD GAS OXYGEN CONTENT 16.3 Vol % (12.0-20.0); BLOOD GAS PCO2 41 mmHg (38-42); BLOOD GAS PO2 65 mmHg (61-120); BLOOD GAS TOTAL HGB 12.9 G/DL (12.0-16.0); TEMP CORR TO 98.6
[2016-11-20 05:42] LABS: CRITICAL VALUE YES; OXYGEN DEVICE VENTILATOR
[2016-11-20 05:43] LABS: DRAW SITE RT RADIAL; FIO2 80 %; NUMBER OF ARTERIAL PUNCTURES 1; STAT NO; ULNAR PULSE PRESENT; VENT SETTINGS PC/AC
[2016-11-20 05:53] LABS: BICARBONATE 30.3 MEQ/L (21.0-32.0); MAGNESIUM 2.3 MG/DL (1.5-2.5); POTASSIUM 3.9 MEQ/L (3.5-5.1)
[2016-11-20] MEDS: RESP: ALBUTEROL 2.5 MG/IPRATROPIUM 0.5 MG NEB (PRN) NEB (08:09)
[2016-11-20] MEDS: RESP: BUDESONIDE 0.5 MG/2 ML NEB NEB SCH ×2 (08:09→20:35)
[2016-11-20] MEDS: CHLORHEXIDINE 0.12% (ORAL KIT) 15 ML CUP MT SCH ×2 (08:59→20:00)
[2016-11-20] MEDS: SODIUM CHLORIDE 0.9% FLUSH 5 ML FLUSH FLUSH SCH ×2 (08:59→20:42)
[2016-11-20] MEDS: TIOTROPIUM BROMIDE 18 MCG INH INH SCH (08:59)
[2016-11-20] MEDS: METOPROLOL TARTRATE 25 MG TAB PO SCH ×2 (09:00→20:41)
[2016-11-20] MEDS: DOCUSATE SODIUM 100 MG CAP PO SCH ×2 (09:00→20:41)
[2016-11-20] MEDS: buPROPion HCL 100 MG TAB PO SCH (09:00)
[2016-11-20] MEDS: LEVOCETIRIZINE 5 MG PO SCH (09:00)
[2016-11-20] MEDS: CETIRIZINE HCL SYRUP 10 MG/10 ML UDC TUBE SCH (09:00)
[2016-11-20] MEDS: POLYETHYLENE GLYCOL 17 GM PKG PO SCH ×2 (09:01→20:41)
--- NOTE | 2016-11-20 12:06 | HHI.CCPN ---
Subjective Remarks/Hospital Course Patient is a 71-year-old female with history of pulmonary fibrosis, asthma, probable COPD on home oxygen who had a recent fall at home and sustained C7/ T1 fractures. She was evaluated by neurosurgery and conservatively managed and placed in a cervical collar. She was discharged home on 11/04/16. The pt developed inability to ambulate at home and also had urinary retention. Patient 's also noticed that she had been more confused. ER workup included a CT of the head which was negative, CT of the abdomen pelvis showed markedly distended bladder with mild to moderate hydronephrosis. Sanders catheter was inserted. Chest x-ray showed increasing bilateral infiltrates. Patient was admitted to the hospitalist service, on broad-spectrum antibiotics with Zosyn and vancomycin, breathing treatments. Neurology Dr. Xiong was also consulted Today was noted to have increasing shortness of breath today, tachypnea and hypoxia requiring a partial nonrebreather. Also noted to have A flutter with rapid ventricular response. Cardizem boluses 2 was given on Cardizem infusion was started. Because of her worsening respiratory failure patient was moved to the ICU. Critical care medicine consulted and I immediately evaluated the patient. She is in moderate distress on partial nonrebreather breathing 35-40/ m. Chest exam shows bilateral crackles and wheezes. I have added Solu-Medrol and scheduled breathing treatments and ordered BiPAP 10 over 5. I explained to the patient and the that patient may need endotracheal intubation and mechanical ventilation if she is not improving with BiPAP. 11/07 Patient is sedated with Diprivan and intubated. Afebrile. On Cardizem drip 5mg/hr, for MRI spine and CT thorax today. 11/08 Patient is sedated with Fentnayl and intubated. Afebrile. Renal function worse today with Cr: 1.65 from 1.15 11/09 Tmax 102.2. The patient's sputum culture grew preliminarily budding yeast with pseudohyphae. Diflucan initiated yesterday white count trending down. Lasix discontinued yesterday secondary to elevated creatinine level. 11/10 Afebrile. Able to wean oxygenation to FiO2 of 40% today. CPAP trials plan for today. The patient was noted to be hypernatremic free water flushes were added to her tube feedings. Creatinine slightly improved today. PT consulted Functional maintenance with specific requirements to be referred to neurosurgery for restrictions of any type of activities regarding functional maintenance. 11/11 Tmax 101.7. Patient continues to have persistent fevers, on antibiotic therapy, ID consulted,Dr Phan, appreciate recommendations. The patient has elevations in heart rate with activity/movement, received 2 doses of metoprolol with some diminution, from 160 to 90's yesterday. Overnight the patient's heart rate remained in the 120's. CPAP trials were initiated yesterday the patient was able to maintain the trial for approximately 4 hours. 11/12 Persistent fever last 24 hours, patient placed on a cooling blanket. Antibiotics adjusted per ID, Dr. Phan. Ultrasound Doppler obtained bilateral upper and lower extremities results superficial thrombus white distal cephalic vein. The patient was maintained on CPAP approximately 9 hours yesterday. Fentanyl infusion resumed today, patient complained of pain. Scheduled by mouth narcotics initiated. 11/13 CPAP trials lasted 11 hours. Patient continues to have fevers on a cooling blanket, Dr. Phan managing antibiotic regimen. Patient can continuously complain of pain, scheduled pain meds multimodal therapy approach initiated. 11/14 Was on CPAP 10/8 FiO2 55% for several hours and then terminated due to desaturation. WBC up to 22.9 without fever. No significant respiratory secretions. Had diarrhea yesterday but now RN reports no BM today after holding bowel regimen. Abdomen benign and tolerating tube feeds. Check for C diff if has a loose stool. Panculture sent. updated at bedside. Has no invasive lines. Subjective: 11/15 Diuresed net negative 1 L last shift following lasix. Creatinine downtrend to 1.19. Sodium down to 150. Received 6 am dose of Lasix. FiO2 weaned to 45%. WBC down 17. Afebrile. Placed on CPAP 5/5 and TV 550 and RSBI 30s. Sats 89-92% on 50%. 11/16 Tmax in 100.1. The patient continues today on CPAP trial PaO2 65 on FiO2 of 55%. The patient has been diuresed over the last several days, sodium is down trending now 145 tube feeds are off, will plan for a trial of extubation. As discussed with the Dr. Rodríguez that the patient possibly will need tracheostomy. Dr. Aguilera consulted for possible tracheostomy. 11/17 Afebrile. The patient was extubated yesterday afternoon .The patient tolerated BiPAP overnight, maintaining O2 sat 9294%, on FiO2 of 50%. Plan to transition to high flow nasal cannula if tolerated. 11/18 The patient tolerated-flow nasal cannula for the last 24 hours. Attempts at weaning FiO2 less than 65% unsuccessful at this point. O2 sat 8892%. Patient unable to perform incentive spirometry at this time. 11/19 The patient had respiratory decompensation this afternoon, requiring emergent intubation. The patient also underwent fiberoptic bronchoscopy which was unremarkable, and obtained BAL specimens as she continues to have fevers. 11/20 Tmax 100.0. The patient required emergent intubation yesterday afternoon secondary to hypoxemic/hypercapnic respiratory failure. A BAL was performed to obtain specimens secondary to elevation in white count. BAL revealed staph aureus. The process of weaning FiO2 is currently underway, FiO2 currently 65%. The patient complained of abdominal pain last evening, CT scan obtained. Objective Vital Signs Date Time Temp Pulse Resp B/P Pulse Ox O2 Delivery O2 Flow Rate FiO2 11/20/16 11:37 94 75 11/20/16 08:00 99.9 62 25 130/68 11/20/16 07:00 Mechanical Ventilator 11/19/16 09:20 30.00 Intake and Output 11/19/16 11/19/16 11/20/16 08:00 16:00 00:00 Intake Total 100 ml 400 ml 889 ml Output Total 550 ml 700 ml 750 ml Balance -450 ml -300 ml 139 ml Result Diagram: 11/20/16 0454 11/20/16 0454 Other Results Laboratory Tests Test 11/19/16 11/19/16 11/19/16 11/20/16 13:05 16:43 18:18 05:28 Blood Gas Puncture Site RT RADIAL LT RADIAL LT RADIAL RT RADIAL Blood Gas Patient Temperature 98.6 98.6 98.6 98.6 Blood Gas HCO3 28 mmol/L 31 mmol/L 29 mmol/L 30 mmol/L (22-26) (22-26) (22-26) (22-26) Blood Gas Base Excess 5.0 mmol/L 4.4 mmol/L 4.7 mmol/L 5.8 mmol/L (-2-2) (-2-2) (-2-2) (-2-2) Blood Gas Oxygen Saturation 82 % (90-100) 97 % (90-100) 91 % (90-100) 89 % (90- 100) Arterial Blood pH 7.49 7.24 7.41 7.47 (7.380-7.420) (7.380-7.420) (7.380-7.420) (7.380-7.420) Arterial Blood Partial 37 mmHg (38-42) 76 mmHg (38-42) 47 mmHg (38-42) 41 mmHg ( 38-42) Pressure CO2 Arterial Blood Partial 49 mmHg 300 mmHg 77 mmHg 65 mmHg Pressure O2 (61-120) (61-120) (61-120) (61-120) Arterial Blood Oxygen Content 14.9 Vol % 20.7 Vol % 18.8 Vol % 16.3 Vol % (12.0-20.0) (12.0-20.0) (12.0-20.0) (12.0-20.0) Arterial Blood 1.4 % (0-4) 0.5 % (0-4) 1.0 % (0-4) 1.0 % (0-4) Carboxyhemoglobin Arterial Blood Methemoglobin 1.2 % (0-2) 1.1 % (0-2) 1.1 % (0-2) 1.1 % (0-2) Blood Gas Hemoglobin 13.0 G/DL 14.7 G/DL 14.6 G/DL 12.9 G/DL (12.0-16.0) (12.0-16.0) (12.0-16.0) (12.0-16.0) Oxygen Delivery Device NASAL CANNULA VENTILATOR VENTILATOR VENTILATOR Blood Gas Liter Flow 30 L/M Blood Gas Inspired Oxygen 60 % 100 % 100 % 80 % Blood Gas Ventilator Setting PRVC/AC PC PC/AC Imaging Last Impressions Chest X-Ray 11/15/16 0000 Signed Impressions: Service Date/Time: Tuesday, November 15, 2016 11:02 - CONCLUSION: No significant interval change. Roland Maier MD Upper Extremity Ultrasound 11/11/16 0000 Signed Impressions: Service Date/Time: Friday, November 11, 2016 21:51 - CONCLUSION: 1. No evidence of DVT. 2. Focal superficial thrombosis involving the distal right cephalic vein. Roland Maier MD Lower Extremity Ultrasound 1/25/17 0000 Signed Impressions: Service Date/Time: Friday, November 11, 2016 21:22 - CONCLUSION: Negative exam with no evidence of deep venous thrombosis. Rex Corcoran MD Liver Ultrasound 11/09/16 0000 Signed Impressions: Service Date/Time: Wednesday, November 09, 2016 08:03 - CONCLUSION: 1. No acute abnormality. 2. Prior cholecystectomy. Common bile duct is within the normal range in terms of size for patient status post cholecystectomy. 3. Dystrophic calcification involving the right lobe of the liver. Scott Mittal Jr., MD Thoracic Spine MRI 11/07/16 0000 Signed Impressions: Service Date/Time: Monday, November 07, 2016 10:23 - CONCLUSION: 1. There is a fracture of the T1 vertebral body and T5 vertebral body. No significant height loss is present and there is no retropulsion of any fracture fragment. No canal stenosis is present. 2. Please refer to today's chest CT examination report for description of the pulmonary findings. Jimmy Lara MD Renal Ultrasound 11/06/16 0000 Signed Impressions: Service Date/Time: Sunday, November 06, 2016 22:24 - CONCLUSION: Probable complicated cyst midpole left kidney measuring 2.0 cm. Otherwise negative exam. No evidence of hydronephrosis. Scott Cantor MD Chest CT 11/06/16 0000 Signed Impressions: Service Date/Time: Monday, November 07, 2016 10:50 - CONCLUSION: Severe diffuse geographic areas of groundglass attenuation bilaterally with trace bilateral pleural effusions. The pattern is nonspecific but can be seen with infection and ARDS among other etiologies. Jimmy aLra MD Head CT 11/04/16 2326 Signed Impressions: Service Date/Time: Friday, November 04, 2016 23:45 - CONCLUSION: No acute intracranial findings. Jimmy Felton MD Abdomen/Pelvis CT 11/04/16 0000 Signed Impressions: Service Date/Time: Friday, November 04, 2016 23:48 - CONCLUSION: Markedly dilated urinary bladder with mild-moderate bilateral hydronephrosis Jimmy Felton MD Last Impressions Chest X-Ray 11/12/16 0600 Signed Impressions: Service Date/Time: October 02:40 - CONCLUSION: No significant interval change. Roland Maier MD Upper Extremity Ultrasound 11/11/16 0000 Signed Impressions: Service Date/Time: Friday, November 11, 2016 21:51 - CONCLUSION: 1. No evidence of DVT. 2. Focal superficial thrombosis involving the distal right cephalic vein. Roland Maier MD Lower Extremity Ultrasound 11/11/16 0000 Signed Impressions: Service Date/Time: Friday, November 11, 2016 21:22 - CONCLUSION: Negative exam with no evidence of deep venous thrombosis. Rex Corcoran MD Liver Ultrasound 11/09/16 0000 Signed Impressions: Service Date/Time: Wednesday, November 09, 2016 08:03 - CONCLUSION: 1. No acute abnormality. 2. Prior cholecystectomy. Common bile duct is within the normal range in terms of size for patient status post cholecystectomy. 3. Dystrophic calcification involving the right lobe of the liver. Scott Mittal Jr., MD Thoracic Spine MRI 11/07/16 0000 Signed Impressions: Service Date/Time: Monday, November 07, 2016 10:23 - CONCLUSION: 1. There is a fracture of the T1 vertebral body and T5 vertebral body. No significant height loss is present and there is no retropulsion of any fracture fragment. No canal stenosis is present. 2. Please refer to today's chest CT examination report for description of the pulmonary findings. Jimmy Lara MD Renal Ultrasound 11/06/16 0000 Signed Impressions: Service Date/Time: Sunday, November 06, 2016 22:24 - CONCLUSION: Probable complicated cyst midpole left kidney measuring 2.0 cm. Otherwise negative exam. No evidence of hydronephrosis. Scott Cantor MD Chest CT 11/06/16 0000 Signed Impressions: Service Date/Time: Monday, November 07, 2016 10:50 - CONCLUSION: Severe diffuse geographic areas of groundglass attenuation bilaterally with trace bilateral pleural effusions. The pattern is nonspecific but can be seen with infection and ARDS among other etiologies. Jimmy Lara MD Head CT 11/04/16 2326 Signed Impressions: Service Date/Time: Friday, November 04, 2016 23:45 - CONCLUSION: No acute intracranial findings. Jimmy Felton MD Abdomen/Pelvis CT 11/04/16 0000 Signed Impressions: Service Date/Time: Friday, November 04, 2016 23:48 - CONCLUSION: Markedly dilated urinary bladder with mild-moderate bilateral hydronephrosis Jimmy Felton MD Last Impressions Chest X-Ray 11/12/16 0600 Signed Impressions: Service Date/Time: October 02:40 - CONCLUSION: No significant interval change. Roland Maier MD Upper Extremity Ultrasound 11/11/16 0000 Signed Impressions: Service Date/Time: Friday, November 11, 2016 21:51 - CONCLUSION: 1. No evidence of DVT. 2. Focal superficial thrombosis involving the distal right cephalic vein. Roland Maier MD Lower Extremity Ultrasound 11/11/16 0000 Signed Impressions: Service Date/Time: Friday, November 11, 2016 21:22 - CONCLUSION: Negative exam with no evidence of deep venous thrombosis. Rex Corcoran MD Liver Ultrasound 11/09/16 0000 Signed Impressions: Service Date/Time: Wednesday, November 09, 2016 08:03 - CONCLUSION: 1. No acute abnormality. 2. Prior cholecystectomy. Common bile duct is within the normal range in terms of size for patient status post cholecystectomy. 3. Dystrophic calcification involving the right lobe of the liver. Scott Mittal Jr., MD Thoracic Spine MRI 11/07/16 0000 Signed Impressions: Service Date/Time: Monday, November 07, 2016 10:23 - CONCLUSION: 1. There is a fracture of the T1 vertebral body and T5 vertebral body. No significant height loss is present and there is no retropulsion of any fracture fragment. No canal stenosis is present. 2. Please refer to today's chest CT examination report for description of the pulmonary findings. Jimmy Lara MD Renal Ultrasound 11/06/16 0000 Signed Impressions: Service Date/Time: Sunday, November 06, 2016 22:24 - CONCLUSION: Probable complicated cyst midpole left kidney measuring 2.0 cm. Otherwise negative exam. No evidence of hydronephrosis. Scott Cantor MD Chest CT 11/06/16 0000 Signed Impressions: Service Date/Time: Monday, November 07, 2016 10:50 - CONCLUSION: Severe diffuse geographic areas of groundglass attenuation bilaterally with trace bilateral pleural effusions. The pattern is nonspecific but can be seen with infection and ARDS among other etiologies. Jimmy Lara MD Head CT 11/04/162325 Signed Impressions: Service Date/Time: Friday, November 04, 2016 23:45 - CONCLUSION: No acute intracranial findings. Jimmy Felton MD Abdomen/Pelvis CT 11/04/16 Signed Impressions: Service Date/Time: Friday, November 04, 2016 23:48 - CONCLUSION: Markedly dilated urinary bladder with mild-moderate bilateral hydronephrosis Jimmy Felton MD Last Impressions Liver Ultrasound 11/09/16 Signed Impressions: Service Date/Time: Wednesday, November 09, 2016 08:03 - CONCLUSION: 1. No acute abnormality. 2. Prior cholecystectomy. Common bile duct is within the normal range in terms of size for patient status post cholecystectomy. 3. Dystrophic calcification involving the right lobe of the liver. Scott Mittal Jr., MD Chest X-Ray 11/09/16 0000 Signed Impressions: Service Date/Time: Wednesday, November 09, 2016 03:36 - CONCLUSION: Mild improvement in the bilateral interstitial infiltrates. Roland Maier MD Thoracic Spine MRI 11/07/16 0000 Signed Impressions: Service Date/Time: Monday, November 07, 2016 10:23 - CONCLUSION: 1. There is a fracture of the T1 vertebral body and T5 vertebral body. No significant height loss is present and there is no retropulsion of any fracture fragment. No canal stenosis is present. 2. Please refer to today's chest CT examination report for description of the pulmonary findings. Jimmy Lara MD Renal Ultrasound 11/06/16 0000 Signed Impressions: Service Date/Time: Sunday, November 06, 2016 22:24 - CONCLUSION: Probable complicated cyst midpole left kidney measuring 2.0 cm. Otherwise negative exam. No evidence of hydronephrosis. Scott Cantor MD Chest CT 11/06/16 0000 Signed Impressions: Service Date/Time: Monday, November 07, 2016 10:50 - CONCLUSION: Severe diffuse geographic areas of groundglass attenuation bilaterally with trace bilateral pleural effusions. The pattern is nonspecific but can be seen with infection and ARDS among other etiologies. Jimmy Lara MD Head CT 11/04/16 2326 Signed Impressions: Service Date/Time: Friday, November 04, 2016 23:45 - CONCLUSION: No acute intracranial findings. Jimmy Felton MD Abdomen/Pelvis CT 11/04/16 0000 Signed Impressions: Service Date/Time: Friday, November 04, 2016 23:48 - CONCLUSION: Markedly dilated urinary bladder with mild-moderate bilateral hydronephrosis Jimmy Felton MD Last Impressions Chest X-Ray 11/07/16 0600 Signed Impressions: Service Date/Time: Monday, November 07, 2016 05:03 - CONCLUSION: Persistent and stable bilateral air space opacities in the medial lungs. Scott Cantor MD Thoracic Spine MRI 11/07/16 0000 Signed Impressions: Service Date/Time: Monday, November 07, 2016 10:23 - CONCLUSION: 1. There is a fracture of the T1 vertebral body and T5 vertebral body. No significant height loss is present and there is no retropulsion of any fracture fragment. No canal stenosis is present. 2. Please refer to today's chest CT examination report for description of the pulmonary findings. Jimmy Lara MD Renal Ultrasound 11/06/16 0000 Signed Impressions: Service Date/Time: Sunday, November 06, 2016 22:24 - CONCLUSION: Probable complicated cyst midpole left kidney measuring 2.0 cm. Otherwise negative exam. No evidence of hydronephrosis. Scott Cantor MD Chest CT 11/06/16 0000 Signed Impressions: Service Date/Time: Monday, November 07, 2016 10:50 - CONCLUSION: Severe diffuse geographic areas of groundglass attenuation bilaterally with trace bilateral pleural effusions. The pattern is nonspecific but can be seen with infection and ARDS among other etiologies. Jimmy Lara MD Head CT 11/04/16 2326 Signed Impressions: Service Date/Time: Friday, November 04, 2016 23:45 - CONCLUSION: No acute intracranial findings. Jimmy Felton MD Abdomen/Pelvis CT 11/04/16 0000 Signed Impressions: Service Date/Time: Friday, November 04, 2016 23:48 - CONCLUSION: Markedly dilated urinary bladder with mild-moderate bilateral hydronephrosis Jimmy Felton MD Objective Remarks GENERAL: Patient is 71 yo female, critically ill appearing ,sedated and intubated on propofol and fentanyl infusion SKIN: Warm and dry. HEAD: Normocephalic. EYES: No scleral icterus. No injection or drainage. NECK: Supple, trachea midline. No JVD or lymphadenopathy. [place] J C-collar in place .Orotracheal intubated. CARDIOVASCULAR: Regular rate and rhythm without murmurs, gallops, or rubs. RESPIRATORY: Breath sounds equal bilaterally , coarse breath sounds. Mechanical ventilation GASTROINTESTINAL: Abdomen soft, non-tender, nondistended. NG tube in situ MUSCULOSKELETAL: No cyanosis, 1-2+ edema, all extremities. Neuro: GCS 3T, currently sedated and intubated Urinary Catheter: Yes Assessment to: Continue Vascular Central Line Catheter: No A/P Assessment and Plan NEURO: Acute metabolic encephalopathy, improved C7-T1 fracture (T1 vertebral body comminuted fracture, bilateral C7 pedicle fracture extending to the right facet. Remote history of anterior C6-C7 and C4-C5 fusion with plate placement. Pain H/O Chronic pain syndrome Pain control -multimodal pain therapy-Roxicodone scheduled every 6 hours, fentanyl infusion for ventilator synchrony -GCS 3T-currently on propofol and fentanyl infusion. Will wean off propofol -CT head negative for acute findings. - 11/07 MRI spine: Fracture of the T1 vertebral body and T5 vertebral body. - Wellbutrin place on hold, due to Zyvox administration, Xanax 0.5 bid PRN RESP: Acute hypoxemic / hypercapneic respiratory failure Pulmonary fibrosis/COPD exacerbation History of asthma Probable HCAP -Glidescope intubation 1 attempt 11/06 (Dr. Marquez) -Bronchodilators scheduled -Continue Solumedrol 20 mg IV every [address] Escalera, Pulmonary following -home med on hold: Spiriva 18 mcg inhaled daily<Singulair 10 po hs Budesonide 0.5 neb q12. - Pulmonary is following-Dr. Escalera -CT chest showed diffuse GGO b/l -Sputum culture11/08 -budding yeast with pseudohyphae -Sputum Culture 11/09-Rare gram negative rods -Discussed with , holding off on initiation of Xolair at this time due to concern for infection. -Extubated 11/16, placed on BiPAP 01/06 2 Reintubation 1 attempt (Dr Quintero), bronchial washings obtained, plan for tracheostomy next week 2-bronchial washings-staph aureus CVS A Flutter with RVR-resolved Fluid overload HTN -Monitor HR and BP keep MAP>65mmHg. On Cardizem 60mg QID, Metoprolol 25mg BID -Echo revealed EF 45-50%, diffuse hypokinesis, cardiology is following, Dr. Barrera -Troponin negative -Esmolol dc'd 11/14 -Lasix 40 mg x 1 dose- Diuresed 2L -Resume Lasix 20 mg twice a day GI: Constipation-resolved Abdominal Pain -Elevated LFT's, check US liver-no acute abnormality .dystrophic calcification right lobe, common bile duct within normal limits - IV Protonix for GI prophylaxis - Will resume TF-Glucerna 1.5 @, change to goal rate 50 L per hour per nutrition recommendations. Patient previously on soft pureed diet with poor intake - NGT tube-reinitiate tube feeds Glucerna 1.5 at 50 cc an hour per merchandising representative recommendation -Obtain Cdiff antigen -11/19 CT- abdomen -no acute findings FEN/RENAL: Hydronephrosis from urinary retention/obstruction Hypernatremia-resolved -Monitor renal function , I/O's, -Free water flushes to 300 cc discontinued 11/17 BUN elevation may in part be secondary to steroids. -Renal US: Probable complicated cyst midpole left kidney measuring 2.0 cm. No evidence of hydronephrosis. -Continue Lasix 20 mg twice a day ID: Healthcare associated pneumonia Sepsis Persistent fevers Persistent Leukocytosis - (thromobphlebitis vs steroids vs infectious) WBC 26 -Acetaminophen 650mg for temp greater than 101.0 -Sputum culture11/08 -budding yeast with pseudohyphae -Sputum Culture 11/09-Rare gram negative robin -Blood cultures11/08- NGTD -Abx per ID, Dr. Phan, management of antibiotic regimen (vancomycin, azithromycin, fluconazole). -Ordered C diff but now no further BMs. Pancultured 11/14, pending Microbiology: 11/05blood culture 2 setsno growth today 11/07blood cultureno growth today 11/08blood culture 2 setsno growth today 11/09pending culturenegative 11/14blood culture 2 sets pending 11/14sputum culturepending 11/14urinalysis without evidence of infection. -US11/12 bilateral upper and lower extremities-superficial nonocclusive thrombus right cephalic vein 11/19-bronchial washings-staph aureus -Cdiff pending -11/20- repeat blood and urine cultures HEME: -Monitor CBC, CMP ENDO: Hypokalemia Hyperglycemia of critical illness -Electrolyte replacement per protocol. Sliding scale insulin if needed -On [place] Thyroid 90mg daily, TSH: 0.123 -Glucose monitoring every 6 hours per ICU protocol -Sliding-scale insulin MSK: Clinical illness polyneuropathy -PT-functional maintenance daily - Multi-Podus boots PROPH: -Bilateral lower extremity SCDs. Subcutaneous heparin 5000 q 8 for DVT prophylaxis. IV Protonix for GI prophylaxis LINES: -Utilize peripheral IVs. No invasive lines. This patient remains critically ill with one or more organ systems which are or may become a threat to life. I have spent in excess of 49 minutes discontinuously in the care and management of this patient. This time is exclusive of procedures, and includes, but is not limited to, evaluation of the patient, review of the medical record, discussions with family, consultants, nursing staff, or respiratory therapy, and documentation in the medical record. Discussed with BAR USEFUL OR BUSSER at bedside and Dr. Rodríguez() and the decision to proceed with percutaneous tracheostomy possibly next week. Physician Megha Pastrana MD Nov 20, 2016 12:06
[2016-11-20] MEDS: FLUCONAZOLE 200 MG PREMIX BAG 100 ML IV SCH (12:45)
--- NOTE | 2016-11-20 13:23 | HHI.IDPN ---
Note Infectious Disease Note Patient reintubated. Temp of 100. Sedated. Had bronchoscopy. Sputum culture has staph species. little secretions. WBC still elevated. Higher. PAST MEDICAL HISTORY 1. Asthma. 2. Pulmonary fibrosis. 3. Gastroesophageal reflux disease. 4. Hemochromatosis. 5. Acid reflux. 6. Cholecystectomy. 7. Lumbar spine surgery. 8. Cervical spine surgery. 9. Hysterectomy. 10. Left parotid gland surgery. 11. Breast reduction. 12. Tonsillectomy. 13. Anterior cervical fusion of C6-C7. ALLERGIES 1. BETADINE. 2. IODINE. 3. THE PATIENT'S REPORTS SHE GETS UPSET STOMACH WITH CIPROFLOXACIN BUT THAT SHE IS UNABLE TO TOLERATE IV CIPROFLOXACIN. ANTIBIOTICS: Aztreonam. Fluconazole. Other meds reviewed. OBJECTIVE: Vital Signs Date Time Temp Pulse Resp B/P Pulse Ox O2 Delivery O2 Flow Rate FiO2 11/20/16 11:37 94 75 11/20/16 10:00 60 11/20/16 08:11 97 75 11/20/16 08:00 100 11/20/16 08:00 99.9 62 25 130/68 95 11/20/16 08:00 62 11/20/16 07:00 100 Mechanical Ventilator 11/20/16 06:00 62 11/20/16 04:25 98 100 11/20/16 04:00 73 11/20/16 04:00 100 11/20/16 04:00 100.0 73 26 112/63 95 11/20/16 02:00 62 11/20/16 01:15 94 85 11/20/16 00:00 100 11/20/16 00:00 99.8 67 26 91/52 98 11/20/16 00:00 67 11/19/16 22:00 97 11/19/16 20:00 99.2 88 22 112/66 90 11/19/16 20:00 100 11/19/16 20:00 100 11/19/16 19:47 93 90 11/19/16 19:00 90 Mechanical Ventilator 90 11/19/16 18:00 107 11/19/16 17:45 94 100 11/19/16 17:24 100 75 11/19/16 16:27 99 100 11/19/16 16:00 99.5 104 16 160/90 90 11/19/16 16:00 71 11/19/16 15:30 100 11/19/16 14:00 71 11/19/16 13:30 90 75 11/19/16 11/19/16 11/20/16 15:00 23:00 07:00 Intake Total 400 ml 889 ml 467 ml Output Total 700 ml 750 ml 650 ml Balance -300 ml 139 ml -183 ml Intake Oral 100 ml 0 ml 0 ml IV Total 300 ml 889 ml 300 ml Lipid 47 ml Tube Irrigant 120 ml Output Urine Total 700 ml 750 ml 650 ml # Bowel Movements 0 0 0 Laboratory Tests Test 11/19/16 11/20/16 03:26 04:54 White Blood Count 21.5 TH/MM3 26.1 TH/MM3 Red Blood Count 3.61 MIL/MM3 4.02 MIL/MM3 Hemoglobin 11.8 GM/DL 12.9 GM/DL Hematocrit 35.0 % 39.6 % Mean Corpuscular Volume 96.8 FL 98.6 FL Mean Corpuscular Hemoglobin 32.7 PG 32.1 PG Mean Corpuscular Hemoglobin 33.8 % 32.6 % Concent Red Cell Distribution Width 13.9 % 14.0 % Platelet Count 258 TH/MM3 278 TH/MM3 Mean Platelet Volume 10.6 FL 10.5 FL Neutrophils (%) (Auto) 93.1 % Lymphocytes (%) (Auto) 2.9 % Monocytes (%) (Auto) 3.7 % Eosinophils (%) (Auto) 0.1 % Basophils (%) (Auto) 0.2 % Neutrophils # (Auto) 24.3 TH/MM3 Lymphocytes # (Auto) 0.7 TH/MM3 Monocytes # (Auto) 1.0 TH/MM3 Eosinophils # (Auto) 0.0 TH/MM3 Basophils # (Auto) 0.1 TH/MM3 CBC Comment DIFF FINAL Differential Comment Laboratory Tests Test 11/19/16 11/20/16 11/20/16 03:26 04:54 11:56 Sodium Level 146 MEQ/L 148 MEQ/L Potassium Level 3.4 MEQ/L 3.9 MEQ/L Chloride Level 107 MEQ/L 110 MEQ/L Carbon Dioxide Level 34.3 MEQ/L 30.3 MEQ/L Anion Gap 5 MEQ/L 8 MEQ/L Blood Urea Nitrogen 35 MG/DL 38 MG/DL Creatinine 1.08 MG/DL 1.12 MG/DL Estimat Glomerular Filtration 50 ML/MIN 48 ML/MIN Rate Random Glucose 102 MG/DL 99 MG/DL Calcium Level 8.7 MG/DL 9.1 MG/DL Phosphorus Level 3.1 MG/DL 4.1 MG/DL Magnesium Level 2.2 MG/DL 2.3 MG/DL Lactic Acid Level 1.6 mmol/L 2.2 mmol/L Microbiology Date/Time Procedure Status Source Growth 11/19/16 00:00 Gram Stain Ordered Sputum Endotracheal Pending 11/19/16 00:00 Sputum Culture Ordered Sputum Endotracheal Pending 11/19/16 18:00 Gram Stain Received Sputum Endotracheal Pending 11/19/16 18:00 Sputum Culture Received Sputum Endotracheal Pending 11/19/16 18:00 Gram Stain - Final Resulted Bronchial Washings Other 11/19/16 18:00 Bronchial Culture - Preliminary Resulted Staphylococcus Species IMAGING: Chest X-Ray 11/15/16 0000 Signed Impressions: Service Date/Time: Tuesday, November 15, 2016 11:02 - CONCLUSION: No significant interval change. Roland Maier MD PHYSICAL EXAMINATION GENERAL: No acute distress. HEENT: No icterus. Dry mucosa. NECK: No adenopathy or swelling. Neck collar in place. LUNGS: Bilateral rhonchi. HEART: Regular S1 and S2. No audible murmurs. ABDOMEN: Decreased bowel sounds, soft. EXTREMITIES: No edema. Pulses 2+ radial and dorsalis pedis. SKIN: No rash. NEUROLOGIC: non focal. PSYCHIATRIC: Sedated. unable to assess. IMPRESSION 1. Fever, questionable etiology. Temp improved after stopping beta lactam abx. Now low grade fever. ? Pneumonia. Staph in sputum culture. 2. Acute respiratory failure. Extubated. Reintubated. 3. Leukocytosis. ? due to PNA. WBC still elevated. Also has superficial distal r. cephalic vein thrombus. Also on Solumedrol. However still has abnormal CXR. ? result of pulmonary fibrosis. 4. Sepsis on admission indicated by elevated heart rate, elevated temperature, elevated white blood cell count. Source unclear but likely pulmonary. 5. Abnormal chest x-ray with bilateral interstitial infiltrates suggesting possible pneumonia versus COPD or fibrosis. RECOMMENDATIONS 1. Continue Aztreonam for gram negative pulmonary coverage. 2. Continue Fluconazole. 3. Add Zyvox IV. Will hold Welbutrim because of Zyvox interaction. 4. Monitor white blood cell count and temp. 5. Monitor clinical status. 6. Monitor sputum culture. D/W Dr. Quintero. Roberto Phan MD Nov 20, 2016 13:23
[2016-11-20] MEDS: LINEZOLID 600 MG PREMIX 300 ML IV SCH (14:25)
[2016-11-20] MEDS: PANTOPRAZOLE SODIUM 40 MG VIAL IV PUSH SCH (14:25)
[2016-11-20 14:34] LABS: BLOOD GAS BASE EXCESS 5.7 mmol/L (-2-2); BLOOD GAS CARBOXYHEMOGLOBIN 1.1 % (0-4); BLOOD GAS HCO3 29 mmol/L (22-26); BLOOD GAS O2 HGB SATURATION 85 % (90-100); BLOOD GAS PCO2 37 mmHg (38-42); BLOOD GAS PO2 53 mmHg (61-120); BLOOD GAS TOTAL HGB 15.1 G/DL (12.0-16.0); TEMP CORR TO 98.6
[2016-11-20 14:35] LABS: CRITICAL VALUE YES; OXYGEN DEVICE VENTILATOR
[2016-11-20 14:36] LABS: DRAW SITE LT RADIAL; FIO2 65 %; NUMBER OF ARTERIAL PUNCTURES 1; STAT NO; ULNAR PULSE PRESENT; VENT SETTINGS PC 32/RR22/1.0/PEEP5
[2016-11-20] MEDS: fentaNYL 2,500 MCG/NS 250 ML IV SCH (14:45)
[2016-11-20] MEDS: ACETAMINOPHEN/HYDROcodone 325 MG/10 MG TAB PO PRN (15:45)
[2016-11-20] MEDS: RESP: ALBUTEROL 2.5 MG/IPRATROPIUM 0.5 MG NEB (SCH) NEB ×2 (16:36→20:35)
[2016-11-20] MEDS: FUROSEMIDE 40 MG/5 ML UNIT DOSE CUP TUBE SCH (17:48)
[2016-11-20 18:04] LABS: BLOOD GAS BASE EXCESS 4.9 mmol/L (-2-2); BLOOD GAS CARBOXYHEMOGLOBIN 1.3 % (0-4); BLOOD GAS HCO3 28 mmol/L (22-26); BLOOD GAS METHEMOGLOBIN 1.1 % (0-2); BLOOD GAS O2 HGB SATURATION 89 % (90-100); BLOOD GAS OXYGEN CONTENT 15.4 Vol % (12.0-20.0); BLOOD GAS PCO2 39 mmHg (38-42); BLOOD GAS PO2 63 mmHg (61-120); BLOOD GAS TOTAL HGB 12.4 G/DL (12.0-16.0); TEMP CORR TO 98.6
[2016-11-20 18:06] LABS: CRITICAL VALUE YES; OXYGEN DEVICE VENTILATOR
[2016-11-20 18:07] LABS: DRAW SITE LT RADIAL; FIO2 70 %; NUMBER OF ARTERIAL PUNCTURES 1; STAT NO; ULNAR PULSE PRESENT; VENT SETTINGS PC/AC
[2016-11-20] MEDS: MONTELUKAST SODIUM 10 MG TAB PO SCH (20:40)
[2016-11-21] VITALS (20 sets, daily range): BP systolic 101–155; BP diastolic 56–77; PULSE 68–106; RESP 22–24; TEMP 97.5–99.3; O2SAT 88–96
[2016-11-21] MEDS: LINEZOLID 600 MG PREMIX 300 ML IV SCH ×2 (01:22→12:42)
[2016-11-21] MEDS: methylPREDNISolone SOD SUCC 40 MG/1 ML VIAL IV SCH ×3 (01:22→20:29)
[2016-11-21 05:03] LABS: BLOOD GAS BASE EXCESS 5.9 mmol/L (-2-2); BLOOD GAS HCO3 30 mmol/L (22-26); BLOOD GAS O2 HGB SATURATION 88 % (90-100); BLOOD GAS OXYGEN CONTENT 20.8 Vol % (12.0-20.0); BLOOD GAS PCO2 42 mmHg (38-42); BLOOD GAS PO2 60 mmHg (61-120); BLOOD GAS TOTAL HGB 16.9 G/DL (12.0-16.0); CRITICAL VALUE YES; OXYGEN DEVICE VENTILATOR; TEMP CORR TO 98.6
[2016-11-21 05:04] LABS: DRAW SITE RT RADIAL; FIO2 70 %; NUMBER OF ARTERIAL PUNCTURES 1; STAT NO; ULNAR PULSE PRESENT; VENT SETTINGS PC/AC
--- NOTE | 2016-11-21 05:16 | RADRPT ---
EXAM DATE/TIME: 11/21/2016 04:25 [facility] COMPARISON: CT ABDOMEN W/O CONTRAST, November 20, 2016, 4:24. CHEST SINGLE AP, November 19, 2016, 20:18. INDICATIONS : Shortness of breath. MEDICAL HISTORY : Hypertension. Chronic obstructive pulmonary disease. SURGICAL HISTORY : None. ENCOUNTER: Subsequent ACUITY: 2 weeks PAIN SCORE: Non-responsive. LOCATION: Bilateral chest FINDINGS: Portable AP view of the chest demonstrates a normal-sized cardiac silhouette. ETT and nasogastric tub e remain present. There is suspected pneumomediastinum. No pneumothorax is appreciated. There is airs pace consolidation in the lower lung zones similar to the prior study. No pleural effusion is identif ied. There is left axillary region soft tissue air. CONCLUSION: 1. Persistent pneumomediastinum. No pneumothorax is identified. 2. Stable bilateral lower lung zone airspace consolidation. 3. New left axillary region soft tissue air from uncertain etiology. Jimmy Lara MD on November 21, 2016 at 5:11 Board Certified Radiologist. This report was verified electronically.
[2016-11-21] MEDS: HIGH DOSE INSULIN NOVOLOG SUPPLEMENTAL SCALE SQ SCH ×4 (05:18→23:56)
[2016-11-21] MEDS: DILTIAZEM HCL 60 MG TAB PO SCH ×4 (05:18→22:58)
[2016-11-21] MEDS: HEPARIN SODIUM - SQ 10,000 UNITS/ML VIAL SQ SCH ×3 (05:18→20:29)
[2016-11-21] MEDS: THYROID 30 MG TAB PO SCH (05:19)
[2016-11-21] MEDS: fentaNYL 2,500 MCG/NS 250 ML IV SCH ×2 (05:27→23:56)
[2016-11-21 05:45] LABS: BASOPHIL # 0.1 TH/MM3 (0-0.2); BASOPHIL % 0.3 % (0.0-2.0); EOSINOPHIL % 0.1 % (0.0-4.0); HEMATOCRIT 34.1 % (35.0-46.0); HEMO FLAGS DIFF FINAL; LYMPH % 2.4 % (9.0-44.0); LYMPHOCYTE # 0.6 TH/MM3 (1.0-4.8); MEAN CELL VOLUME 98.5 FL (80.0-100.0); MEAN CORPUSCULAR HEMOGLOBIN 32.2 PG (27.0-34.0); MEAN CORPUSCULAR HGB CONC 32.7 % (32.0-36.0); MONO % 1.9 % (0.0-8.0); NEUT % 95.3 % (16.0-70.0); PLATELET COUNT 204 TH/MM3 (150-450); RED BLOOD COUNT 3.46 MIL/MM3 (4.00-5.30); RED CELL DISTRIBUTION WIDTH 14.2 % (11.6-17.2); WHITE BLOOD COUNT 23.1 TH/MM3 (4.0-11.0)
[2016-11-21] MEDS: AZTREONAM INJ 1,000 MG in SODIUM CHLORIDE 0.9% INJ 100 ML IV SCH ×3 (06:15→22:58)
[2016-11-21 06:17] LABS: ALKALINE PHOSPHATASE 92 U/L (45-117); ALT (GPT) 75 U/L (10-53); ANION GAP 8 MEQ/L (5-15); AST (GOT) 23 U/L (15-37); BICARBONATE 27.1 MEQ/L (21.0-32.0); BLOOD UREA NITROGEN 46 MG/DL (7-18); CHLORIDE 111 MEQ/L (98-107); GLOMERULAR FILTRATION RATE 43 ML/MIN (>89); MAGNESIUM 2.4 MG/DL (1.5-2.5); POTASSIUM 3.8 MEQ/L (3.5-5.1); SODIUM (NA) 146 MEQ/L (136-145); TOTAL BILIRUBIN ADULT 0.4 MG/DL (0.2-1.0)
[2016-11-21] MEDS: RESP: ALBUTEROL 2.5 MG/IPRATROPIUM 0.5 MG NEB (SCH) NEB ×3 (08:06→20:37)
[2016-11-21] MEDS: RESP: BUDESONIDE 0.5 MG/2 ML NEB NEB SCH ×2 (08:06→20:36)
[2016-11-21] MEDS: POLYETHYLENE GLYCOL 17 GM PKG PO SCH ×2 (08:49→20:30)
[2016-11-21] MEDS: METOPROLOL TARTRATE 25 MG TAB PO SCH ×2 (08:49→20:30)
[2016-11-21] MEDS: CETIRIZINE HCL SYRUP 10 MG/10 ML UDC TUBE SCH (08:49)
[2016-11-21] MEDS: DOCUSATE SODIUM 100 MG CAP PO SCH ×2 (08:49→20:28)
[2016-11-21] MEDS: CHLORHEXIDINE 0.12% (ORAL KIT) 15 ML CUP MT SCH ×2 (08:49→20:28)
[2016-11-21] MEDS: SODIUM CHLORIDE 0.9% FLUSH 5 ML FLUSH FLUSH SCH ×2 (08:50→20:28)
[2016-11-21] MEDS: TIOTROPIUM BROMIDE 18 MCG INH INH SCH (08:50)
[2016-11-21] MEDS: FUROSEMIDE 40 MG/5 ML UNIT DOSE CUP TUBE SCH ×2 (08:50→17:20)
[2016-11-21] MEDS: LEVOCETIRIZINE 5 MG PO SCH (09:00)
[2016-11-21] MEDS ORDERED: PHARMACY ORDERED LAB XX ONE (11:45)
[2016-11-21] MEDS: SODIUM CHLORIDE 0.9% FLUSH 5 ML FLUSH FLUSH PRN (12:42)
[2016-11-21] MEDS: FLUCONAZOLE 200 MG PREMIX BAG 100 ML IV SCH (12:43)
[2016-11-21] MEDS: RESP: ALBUTEROL 2.5 MG/IPRATROPIUM 0.5 MG NEB (PRN) NEB (14:43)
[2016-11-21 15:29] LABS: BLOOD GAS BASE EXCESS 5.2 mmol/L (-2-2); BLOOD GAS HCO3 29 mmol/L (22-26); BLOOD GAS METHEMOGLOBIN 0.9 % (0-2); BLOOD GAS O2 HGB SATURATION 85 % (90-100); BLOOD GAS OXYGEN CONTENT 13.6 Vol % (12.0-20.0); BLOOD GAS PCO2 41 mmHg (38-42); BLOOD GAS PO2 55 mmHg (61-120); BLOOD GAS TOTAL HGB 11.4 G/DL (12.0-16.0); CRITICAL VALUE YES; OXYGEN DEVICE VENTILATOR; TEMP CORR TO 98.6
[2016-11-21 15:30] LABS: DRAW SITE RT RADIAL; FIO2 80 %; NUMBER OF ARTERIAL PUNCTURES 1; STAT YES; ULNAR PULSE PRESENT; VENT SETTINGS PCAC 22/32IP/1.0IT/5
[2016-11-21] MEDS: ACETAMINOPHEN/HYDROcodone 325 MG/10 MG TAB PO PRN ×2 (15:43→20:45)
[2016-11-21] MEDS: PANTOPRAZOLE SODIUM 40 MG VIAL IV PUSH SCH (15:44)
[2016-11-21] MEDS ORDERED: EPINEPHrine HCL (1:10,000) 1 MG/10 ML SYRINGE ONE (15:57)
[2016-11-21 15:58] LABS: C. DIFF EPI 027 PRESUMPTIVE NEGATIVE (NEGATIVE); C. DIFF TOXIN PCR NEGATIVE (NEGATIVE)
[2016-11-21] MEDS ORDERED: ATROPINE SULFATE 1 MG/10 ML SYRINGE ONE (15:58)
[2016-11-21] MEDS ORDERED: LIDOCAINE HCL 2% 100 MG/5 ML SYRINGE ONE (15:58)
--- NOTE | 2016-11-21 16:15 | HHI.CCPN ---
Subjective Remarks/Hospital Course Patient is a 71-year-old female with history of pulmonary fibrosis, asthma, probable COPD on home oxygen who had a recent fall at home and sustained C7/ T1 fractures. She was evaluated by neurosurgery and conservatively managed and placed in a cervical collar. She was discharged home on 11/04/16. The pt developed inability to ambulate at home and also had urinary retention. Patient 's also noticed that she had been more confused. ER workup included a CT of the head which was negative, CT of the abdomen pelvis showed markedly distended bladder with mild to moderate hydronephrosis. Sanders catheter was inserted. Chest x-ray showed increasing bilateral infiltrates. Patient was admitted to the hospitalist service, on broad-spectrum antibiotics with Zosyn and vancomycin, breathing treatments. Neurology Dr. Xinog was also consulted Today was noted to have increasing shortness of breath today, tachypnea and hypoxia requiring a partial nonrebreather. Also noted to have A flutter with rapid ventricular response. Cardizem boluses 2 was given on Cardizem infusion was started. Because of her worsening respiratory failure patient was moved to the ICU. Critical care medicine consulted and I immediately evaluated the patient. She is in moderate distress on partial nonrebreather breathing 35-40/ m. Chest exam shows bilateral crackles and wheezes. I have added Solu-Medrol and scheduled breathing treatments and ordered BiPAP 10 over 5. I explained to the patient and the that patient may need endotracheal intubation and mechanical ventilation if she is not improving with BiPAP. 11/07 Patient is sedated with Diprivan and intubated. Afebrile. On Cardizem drip 5mg/hr, for MRI spine and CT thorax today. 11/08 Patient is sedated with Fentnayl and intubated. Afebrile. Renal function worse today with Cr: 1.65 from 1.15 11/09 Tmax 102.2. The patient's sputum culture grew preliminarily budding yeast with pseudohyphae. Diflucan initiated yesterday white count trending down. Lasix discontinued yesterday secondary to elevated creatinine level. 11/10 Afebrile. Able to wean oxygenation to FiO2 of 40% today. CPAP trials plan for today. The patient was noted to be hypernatremic free water flushes were added to her tube feedings. Creatinine slightly improved today. PT consulted Functional maintenance with specific requirements to be referred to neurosurgery for restrictions of any type of activities regarding functional maintenance. 11/11 Tmax 101.7. Patient continues to have persistent fevers, on antibiotic therapy, ID consulted,Dr Phan, appreciate recommendations. The patient has elevations in heart rate with activity/movement, received 2 doses of metoprolol with some diminution, from 160 to 90's yesterday. Overnight the patient's heart rate remained in the 120's. CPAP trials were initiated yesterday the patient was able to maintain the trial for approximately 4 hours. 11/12 Persistent fever last 24 hours, patient placed on a cooling blanket. Antibiotics adjusted per ID, Dr. Phan. Ultrasound Doppler obtained bilateral upper and lower extremities results superficial thrombus white distal cephalic vein. The patient was maintained on CPAP approximately 9 hours yesterday. Fentanyl infusion resumed today, patient complained of pain. Scheduled by mouth narcotics initiated. 11/13 CPAP trials lasted 11 hours. Patient continues to have fevers on a cooling blanket, Dr. Phan managing antibiotic regimen. Patient can continuously complain of pain, scheduled pain meds multimodal therapy approach initiated. 11/14 Was on CPAP 10/8 FiO2 55% for several hours and then terminated due to desaturation. WBC up to 22.9 without fever. No significant respiratory secretions. Had diarrhea yesterday but now RN reports no BM today after holding bowel regimen. Abdomen benign and tolerating tube feeds. Check for C diff if has a loose stool. Panculture sent. updated at bedside. Has no invasive lines. Subjective: 11/15 Diuresed net negative 1 L last shift following lasix. Creatinine downtrend to 1.19. Sodium down to 150. Received 6 am dose of Lasix. FiO2 weaned to 45%. WBC down 17. Afebrile. Placed on CPAP 5/5 and TV 550 and RSBI 30s. Sats 89-92% on 50%. 11/16 Tmax in 100.1. The patient continues today on CPAP trial PaO2 65 on FiO2 of 55%. The patient has been diuresed over the last several days, sodium is down trending now 145 tube feeds are off, will plan for a trial of extubation. As discussed with the Dr. Rodríguez that the patient possibly will need tracheostomy. Dr. Aguilera consulted for possible tracheostomy. 11/17 Afebrile. The patient was extubated yesterday afternoon .The patient tolerated BiPAP overnight, maintaining O2 sat 9294%, on FiO2 of 50%. Plan to transition to high flow nasal cannula if tolerated. 11/18 The patient tolerated-flow nasal cannula for the last 24 hours. Attempts at weaning FiO2 less than 65% unsuccessful at this point. O2 sat 8892%. Patient unable to perform incentive spirometry at this time. 11/19 The patient had respiratory decompensation this afternoon, requiring emergent intubation. The patient also underwent fiberoptic bronchoscopy which was unremarkable, and obtained BAL specimens as she continues to have fevers. 11/20 Tmax 100.0. The patient required emergent intubation yesterday afternoon secondary to hypoxemic/hypercapnic respiratory failure. A BAL was performed to obtain specimens secondary to elevation in white count. BAL revealed staph aureus. The process of weaning FiO2 is currently underway, FiO2 currently 65%. The patient complained of abdominal pain last evening, CT scan obtained. 11/21 This afternoon patient experiencing increased O2 requirements to maintain a PaO2 of 60. Chest x-ray reviewed noting possible pneumomediastinum. PEEP 5, stat CT chest pending. CT of the abdomen benign, patient tolerating tube feeds.Pt transported to CT scanner PEEP 8 required for adequate oxygenation. Returned from CT scanner, returned to PEEP of 5, FIO2 90%. Objective Vital Signs Date Time Temp Pulse Resp B/P Pulse Ox O2 Delivery O2 Flow Rate FiO2 11/21/16 14:47 90 80 11/21/16 12:00 99.2 70 22 131/62 11/20/16 19:00 Mechanical Ventilator 11/19/16 09:20 30.00 Intake and Output 11/20/16 11/20/16 11/21/16 08:00 16:00 00:00 Intake Total 467 ml 627 ml 1015 ml Output Total 650 ml 700 ml 850 ml Balance -183 ml -73 ml 165 ml Result Diagram: 11/21/16 0457 11/21/16 0457 Other Results Laboratory Tests Test 11/20/16 11/21/16 11/21/16 17:47 04:52 15:24 Blood Gas Puncture Site LT RADIAL RT RADIAL RT RADIAL Blood Gas Patient Temperature 98.6 98.6 98.6 Blood Gas HCO3 28 mmol/L 30 mmol/L 29 mmol/L (22-26) (22-26) (22-26) Blood Gas Base Excess 4.9 mmol/L 5.9 mmol/L 5.2 mmol/L (-2-2) (-2-2) (-2-2) Blood Gas Oxygen Saturation 89 % (90-100) 88 % (90-100) 85 % (90-100) Arterial Blood pH 7.48 7.47 7.47 (7.380-7.420) (7.380-7.420) (7.380-7.420) Arterial Blood Partial 39 mmHg (38-42) 42 mmHg (38-42) 41 mmHg (38-42) Pressure CO2 Arterial Blood Partial 63 mmHg 60 mmHg 55 mmHg Pressure O2 (61-120) (61-120) (61-120) Arterial Blood Oxygen Content 15.4 Vol % 20.8 Vol % 13.6 Vol % (12.0-20.0) (12.0-20.0) (12.0-20.0) Arterial Blood 1.3 % (0-4) 1.0 % (0-4) 1.0 % (0-4) Carboxyhemoglobin Arterial Blood Methemoglobin 1.1 % (0-2) 1.0 % (0-2) 0.9 % (0-2) Blood Gas Hemoglobin 12.4 G/DL 16.9 G/DL 11.4 G/DL (12.0-16.0) (12.0-16.0) (12.0-16.0) Oxygen Delivery Device VENTILATOR VENTILATOR VENTILATOR Blood Gas Ventilator Setting PC/AC PC/AC PCAC 22/32IP/1.0IT/5 Blood Gas Inspired Oxygen 70 % 70 % 80 % Imaging Last Impressions Chest X-Ray 11/15/16 0000 Signed Impressions: Service Date/Time: Tuesday, November 15, 2016 11:02 - CONCLUSION: No significant interval change. Roland Maier MD Upper Extremity Ultrasound 11/11/16 0000 Signed Impressions: Service Date/Time: Friday, November 11, 2016 21:51 - CONCLUSION: 1. No evidence of DVT. 2. Focal superficial thrombosis involving the distal right cephalic vein. Roland Maier MD Lower Extremity Ultrasound 11/11/16 0000 Signed Impressions: Service Date/Time: Friday, November 11, 2016 21:22 - CONCLUSION: Negative exam with no evidence of deep venous thrombosis. Rex Corcoran MD Liver Ultrasound 11/09/16 0000 Signed Impressions: Service Date/Time: Wednesday, November 09, 2016 08:03 - CONCLUSION: 1. No acute abnormality. 2. Prior cholecystectomy. Common bile duct is within the normal range in terms of size for patient status post cholecystectomy. 3. Dystrophic calcification involving the right lobe of the liver. Scott Mittal Jr., MD Thoracic Spine MRI 11/07/16 0000 Signed Impressions: Service Date/Time: Monday, November 07, 2016 10:23 - CONCLUSION: 1. There is a fracture of the T1 vertebral body and T5 vertebral body. No significant height loss is present and there is no retropulsion of any fracture fragment. No canal stenosis is present. 2. Please refer to today's chest CT examination report for description of the pulmonary findings. Jimmy Lara MD Renal Ultrasound 11/06/16 0000 Signed Impressions: Service Date/Time: Sunday, November 06, 2016 22:24 - CONCLUSION: Probable complicated cyst midpole left kidney measuring 2.0 cm. Otherwise negative exam. No evidence of hydronephrosis. Scott Cantor MD Chest CT 11/06/16 0000 Signed Impressions: Service Date/Time: Monday, November 07, 2016 10:50 - CONCLUSION: Severe diffuse geographic areas of groundglass attenuation bilaterally with trace bilateral pleural effusions. The pattern is nonspecific but can be seen with infection and ARDS among other etiologies. Jimmy Lara MD Head CT 11/04/16 2326 Signed Impressions: Service Date/Time: Friday, November 04, 2016 23:45 - CONCLUSION: No acute intracranial findings. Jimmy Felton MD Abdomen/Pelvis CT 11/04/16 0000 Signed Impressions: Service Date/Time: Friday, November 04, 2016 23:48 - CONCLUSION: Markedly dilated urinary bladder with mild-moderate bilateral hydronephrosis Jimmy Felton MD Last Impressions Chest X-Ray 11/12/16 0600 Signed Impressions: Service Date/Time: October 02:40 - CONCLUSION: No significant interval change. Roland Maier MD Upper Extremity Ultrasound 11/11/16 0000 Signed Impressions: Service Date/Time: Friday, November 11, 2016 21:51 - CONCLUSION: 1. No evidence of DVT. 2. Focal superficial thrombosis involving the distal right cephalic vein. Roland Maier MD Lower Extremity Ultrasound 11/11/16 0000 Signed Impressions: Service Date/Time: Friday, November 11, 2016 21:22 - CONCLUSION: Negative exam with no evidence of deep venous thrombosis. Rex Corcoran MD Liver Ultrasound 11/09/16 0000 Signed Impressions: Service Date/Time: Wednesday, November 09, 2016 08:03 - CONCLUSION: 1. No acute abnormality. 2. Prior cholecystectomy. Common bile duct is within the normal range in terms of size for patient status post cholecystectomy. 3. Dystrophic calcification involving the right lobe of the liver. Scott Mittal Jr., MD Thoracic Spine MRI 11/07/16 0000 Signed Impressions: Service Date/Time: Monday, November 07, 2016 10:23 - CONCLUSION: 1. There is a fracture of the T1 vertebral body and T5 vertebral body. No significant height loss is present and there is no retropulsion of any fracture fragment. No canal stenosis is present. 2. Please refer to today's chest CT examination report for description of the pulmonary findings. Jimmy Lara MD Renal Ultrasound 11/06/16 0000 Signed Impressions: Service Date/Time: Sunday, November 06, 2016 22:24 - CONCLUSION: Probable complicated cyst midpole left kidney measuring 2.0 cm. Otherwise negative exam. No evidence of hydronephrosis. Scott Cantor MD Chest CT 11/06/16 0000 Signed Impressions: Service Date/Time: Monday, November 07, 2016 10:50 - CONCLUSION: Severe diffuse geographic areas of groundglass attenuation bilaterally with trace bilateral pleural effusions. The pattern is nonspecific but can be seen with infection and ARDS among other etiologies. Jimmy Lara MD Head CT 11/04/16 [id number] Signed Impressions: Service Date/Time: Friday, November 04, 2016 23:45 - CONCLUSION: No acute intracranial findings. Jimmy Felton MD Abdomen/Pelvis CT 11/04/16 0000 Signed Impressions: Service Date/Time: Friday, November 04, 2016 23:48 - CONCLUSION: Markedly dilated urinary bladder with mild-moderate bilateral hydronephrosis Jimmy Felton MD Last Impressions Chest X-Ray 11/12/16 0600 Signed Impressions: Service Date/Time: October 02:40 - CONCLUSION: No significant interval change. Roland Maier MD Upper Extremity Ultrasound 11/11/16 0000 Signed Impressions: Service Date/Time: Friday, November 11, 2016 21:51 - CONCLUSION: 1. No evidence of DVT. 2. Focal superficial thrombosis involving the distal right cephalic vein. Roland Maier MD Lower Extremity Ultrasound 11/11/16 0000 Signed Impressions: Service Date/Time: Friday, November 11, 2016 21:22 - CONCLUSION: Negative exam with no evidence of deep venous thrombosis. Rex Corcoran MD Liver Ultrasound 11/09/16 0000 Signed Impressions: Service Date/Time: Wednesday, November 09, 2016 08:03 - CONCLUSION: 1. No acute abnormality. 2. Prior cholecystectomy. Common bile duct is within the normal range in terms of size for patient status post cholecystectomy. 3. Dystrophic calcification involving the right lobe of the liver. Scott Mittal Jr., MD Thoracic Spine MRI 11/07/16 0000 Signed Impressions: Service Date/Time: Monday, November 07, 2016 10:23 - CONCLUSION: 1. There is a fracture of the T1 vertebral body and T5 vertebral body. No significant height loss is present and there is no retropulsion of any fracture fragment. No canal stenosis is present. 2. Please refer to today's chest CT examination report for description of the pulmonary findings. Jimmy Lara MD Renal Ultrasound 11/06/16 0000 Signed Impressions: Service Date/Time: Sunday, November 06, 2016 22:24 - CONCLUSION: Probable complicated cyst midpole left kidney measuring 2.0 cm. Otherwise negative exam. No evidence of hydronephrosis. Scott Cantor MD Chest CT 11/06/16 0000 Signed Impressions: Service Date/Time: Monday, November 07, 2016 10:50 - CONCLUSION: Severe diffuse geographic areas of groundglass attenuation bilaterally with trace bilateral pleural effusions. The pattern is nonspecific but can be seen with infection and ARDS among other etiologies. Jimmy Lara MD Head CT 11/04/16 [id number] Signed Impressions: Service Date/Time: Friday, November 04, 2016 23:45 - CONCLUSION: No acute intracranial findings. Jimmy Felton MD Abdomen/Pelvis CT 11/04/16 0000 Signed Impressions: Service Date/Time: Friday, November 04, 2016 23:48 - CONCLUSION: Markedly dilated urinary bladder with mild-moderate bilateral hydronephrosis Jimmy Felton MD Last Impressions Liver Ultrasound 11/09/16 Signed Impressions: Service Date/Time: Wednesday, November 09, 2016 08:03 - CONCLUSION: 1. No acute abnormality. 2. Prior cholecystectomy. Common bile duct is within the normal range in terms of size for patient status post cholecystectomy. 3. Dystrophic calcification involving the right lobe of the liver. Scott Mittal Jr., MD Chest X-Ray 11/09/16 0000 Signed Impressions: Service Date/Time: Wednesday, November 09, 2016 03:36 - CONCLUSION: Mild improvement in the bilateral interstitial infiltrates. Roland Maier MD Thoracic Spine MRI 11/07/16 Signed Impressions: Service Date/Time: Monday, November 07, 2016 10:23 - CONCLUSION: 1. There is a fracture of the T1 vertebral body and T5 vertebral body. No significant height loss is present and there is no retropulsion of any fracture fragment. No canal stenosis is present. 2. Please refer to today's chest CT examination report for description of the pulmonary findings. Jimmy Lara MD Renal Ultrasound 11/06/16 Signed Impressions: Service Date/Time: Sunday, November 06, 2016 22:24 - CONCLUSION: Probable complicated cyst midpole left kidney measuring 2.0 cm. Otherwise negative exam. No evidence of hydronephrosis. Scott Cantor MD Chest CT 11/06/16 Signed Impressions: Service Date/Time: Monday, November 07, 2016 10:50 - CONCLUSION: Severe diffuse geographic areas of groundglass attenuation bilaterally with trace bilateral pleural effusions. The pattern is nonspecific but can be seen with infection and ARDS among other etiologies. Jimmy Lara MD Head CT 11/04/16 2326 Signed Impressions: Service Date/Time: Friday, November 04, 2016 23:45 - CONCLUSION: No acute intracranial findings. Jimmy Felton MD Abdomen/Pelvis CT 11/04/16 0000 Signed Impressions: Service Date/Time: Friday, November 04, 2016 23:48 - CONCLUSION: Markedly dilated urinary bladder with mild-moderate bilateral hydronephrosis Jimmy Felton MD Last Impressions Chest X-Ray 11/07/16 0600 Signed Impressions: Service Date/Time: Monday, November 07, 2016 05:03 - CONCLUSION: Persistent and stable bilateral air space opacities in the medial lungs. Scott Cantor MD Thoracic Spine MRI 11/07/16 0000 Signed Impressions: Service Date/Time: Monday, November 07, 2016 10:23 - CONCLUSION: 1. There is a fracture of the T1 vertebral body and T5 vertebral body. No significant height loss is present and there is no retropulsion of any fracture fragment. No canal stenosis is present. 2. Please refer to today's chest CT examination report for description of the pulmonary findings. Jimmy Lara MD Renal Ultrasound 11/06/16 0000 Signed Impressions: Service Date/Time: Sunday, November 06, 2016 22:24 - CONCLUSION: Probable complicated cyst midpole left kidney measuring 2.0 cm. Otherwise negative exam. No evidence of hydronephrosis. Scott Cantor MD Chest CT 11/06/16 0000 Signed Impressions: Service Date/Time: Monday, November 07, 2016 10:50 - CONCLUSION: Severe diffuse geographic areas of groundglass attenuation bilaterally with trace bilateral pleural effusions. The pattern is nonspecific but can be seen with infection and ARDS among other etiologies. Jimmy Lara MD Head CT 11/04/16 2326 Signed Impressions: Service Date/Time: Friday, November 04, 2016 23:45 - CONCLUSION: No acute intracranial findings. Jimmy Felton MD Abdomen/Pelvis CT 11/04/16 0000 Signed Impressions: Service Date/Time: Friday, November 04, 2016 23:48 - CONCLUSION: Markedly dilated urinary bladder with mild-moderate bilateral hydronephrosis Jimmy Felton MD Objective Remarks GENERAL: Patient is 71 yo female, critically ill appearing responding with yes and no questions. SKIN: Warm and dry. HEAD: Normocephalic. EYES: No scleral icterus. No injection or drainage. NECK: Supple, trachea midline. No JVD or lymphadenopathy. [place] J C-collar in place .Orotracheal intubated. CARDIOVASCULAR: Regular rate and rhythm without murmurs, gallops, or rubs. RESPIRATORY: Breath sounds equal bilaterally , coarse breath sounds. Mechanical ventilation GASTROINTESTINAL: Abdomen soft, non-tender, nondistended. NG tube in situ MUSCULOSKELETAL: No cyanosis, 1-2+ edema, all extremities. NEURO: GCS 11T, RASS -1, following commands. A/P Assessment and Plan NEURO: Acute metabolic encephalopathy, improved C7-T1 fracture (T1 vertebral body comminuted fracture, bilateral C7 pedicle fracture extending to the right facet. Remote history of anterior C6-C7 and C4-C5 fusion with plate placement. Pain H/O Chronic pain syndrome Pain control -multimodal pain therapy-Roxicodone scheduled every 6 hours, fentanyl infusion for ventilator synchrony -GCS 11T currently on fentanyl infusion, patient's normal VAS scale for chronic pain at home is 7/10. Patient has related pain control better with Roxicodone and tramadol, rated 4/10 -CT head negative for acute findings. - 11/07 MRI spine: Fracture of the T1 vertebral body and T5 vertebral body. - Xanax 0.5 bid PRN RESP: Acute hypoxemic / hypercapneic respiratory failure Pulmonary fibrosis/COPD exacerbation History of asthma Probable HCAP Possible pneumomediastinum -Glidescope intubation 1 attempt 11/06 (Dr. Marquez) -Bronchodilators scheduled -Continue Solumedrol 20 mg IV every [address] Escalera, Pulmonary following -home med on hold: Spiriva 18 mcg inhaled daily<Singulair 10 po hs Budesonide 0.5 neb q12. - Pulmonary is following-Dr. Escalera -CT chest showed diffuse GGO b/l -Sputum culture11/08 -budding yeast with pseudohyphae -Sputum Culture 11/09-Rare gram negative rods -Discussed with , holding off on initiation of Xolair at this time due to concern for infection. -Extubated 11/16, placed on BiPAP 01/06 2/ Reintubation 1 attempt (Dr Quintero), bronchial washings obtained, plan for tracheostomy next week 2-bronchial washings-staph aureus -CT chest pending, follow-up results, increasing O2 requirements today, methylprednisolone 60 mg every 8 hours initiated, PEEP 5 CT surgery consult- for Pneumomediastinum Discussed with Dr. Person , increase in steroids, and consultation [facility] A Flutter with RVR-resolved Fluid overload HTN -Monitor HR and BP keep MAP>65mmHg. On Cardizem 60mg QID, Metoprolol 25mg BID -Echo revealed EF 45-50%, diffuse hypokinesis, cardiology is following, Dr. Barrera -Troponin negative -Esmolol dc'd 11/14 -Lasix 40 mg x 1 dose- Diuresed 2L GI: Constipation-resolved Abdominal Pain Severe protein calorie malnutrition -Elevated LFT's, check US liver-no acute abnormality .dystrophic calcification right lobe, common bile duct within normal limits - IV Protonix for GI prophylaxis - Will resume TF-Glucerna 1.5 @, change to goal rate 50 L per hour per nutrition recommendations. Patient previously on soft pureed diet with poor intake - NGT tube-reinitiate tube feeds Glucerna 1.5 at 50 cc an hour per boat washer recommendation -Cdiff antigen 11/21- F/U results -11/19 CT- abdomen -no acute findings -Albumin 1.9 FEN/RENAL: Hydronephrosis from urinary retention/obstruction Hypernatremia-resolved -Monitor renal function , I/O's, -Free water flushes to 300 cc discontinued 11/17 BUN elevation may in part be secondary to steroids. -Renal US: Probable complicated cyst midpole left kidney measuring 2.0 cm. No evidence of hydronephrosis. - Lasix 20 mg BID ID: Healthcare associated pneumonia Sepsis Persistent fevers Persistent Leukocytosis - (thromobphlebitis vs steroids vs infectious) WBC 26 -Acetaminophen 650mg for temp greater than 101.0 -Sputum culture11/08 -budding yeast with pseudohyphae -Sputum Culture 11/09-Rare gram negative robin -Blood cultures11/08- NGTD -Abx per ID, Dr. Phan, management of antibiotic regimen (Linezolid, aztreonam, fluconazole). -Cdiff obtained 11/21. Pancultured 11/14, pending Microbiology: 11/05blood culture 2 setsno growth today 11/07blood cultureno growth today 11/08blood culture 2 setsno growth today 11/09pending culturenegative 11/14blood culture 2 sets pending 11/14sputum culturepending 11/14urinalysis without evidence of infection. -US11/12 bilateral upper and lower extremities-superficial nonocclusive thrombus right cephalic vein 2/2-bronchial washings-staph aureus -Cdiff pending -/3- repeat blood and urine cultures HEME: -Monitor CBC, CMP ENDO: Hypokalemia Hyperglycemia of critical illness -Electrolyte replacement per protocol. Sliding scale insulin if needed -On [place] Thyroid 90mg daily, TSH: 0.123 -Glucose monitoring every 6 hours per ICU protocol -Sliding-scale insulin MSK: Clinical illness polyneuropathy -PT-functional maintenance daily - Multi-Podus boots PROPH: -Bilateral lower extremity SCDs. Subcutaneous heparin 5000 q 8 for DVT prophylaxis. IV Protonix for GI prophylaxis LINES: -Utilize peripheral IVs. No invasive lines. This patient remains critically ill with one or more organ systems which are or may become a threat to life. I have spent in excess of 47 minutes discontinuously in the care and management of this patient. This time is exclusive of procedures, and includes, but is not limited to, evaluation of the patient, review of the medical record, discussions with family, consultants, nursing staff, or respiratory therapy, and documentation in the medical record. Discussed with [employer] at bedside and Dr. Rodríguez() and the decision to proceed with percutaneous tracheostomy . Physician Megha Pastrana MD Nov 21, 2016 16:15
--- NOTE | 2016-11-21 17:20 | RADRPT ---
EXAM DATE/TIME: 11/21/2016 16:14 [facility] COMPARISON: MRI CERVICAL SPINE W/O CONTRAST, November 02, 2016, 11:14. INDICATIONS : Short of breath. RADIATION DOSE: 8.12 CTDIvol (mGy) MEDICAL HISTORY : Cardiovascular disease. Hypertension. Chronic obstructive pulmonary disease. SURGICAL HISTORY : Cholecystectomy. Hysterectomy. ENCOUNTER: Initial ACUITY: 1 day PAIN SCALE: 5/10 LOCATION: chest TECHNIQUE: Volumetric scanning of the chest was performed. Using automated exposure control and adjustment of t he mA and/or kV according to patient size, radiation dose was kept as low as reasonably achievable to obtain optimal diagnostic quality images. FINDINGS: Comparison is dated November 07. Previous diffuse groundglass opacity has improved some residual groun d glass at the bases possibly with developing fibrosis. There is some cylindrical bronchiectasis at b oth lung bases. Since the previous exam an air leak has developed and there is extensive pneumomediastinum. No defini te pneumothorax. There is also extensive dissection of air into the soft tissues at the base of the n yue and into the chest wall bilaterally, worse on the left side. There is no significant pleural effu demi. No pericardial effusion. No acute bony abnormalities. Endotracheal tube tip fracture position. NG enters stomach. No acute findings in the upper abdomen. Previous cholecystectomy. CONCLUSION: 1. Improvement of previous diffuse groundglass opacity. Probable developing fibrotic changes at the b ases with some traction bronchiectasis. 2. Extensive air leak with pneumomediastinum and subcutaneous emphysema. There is also some loculated air at the right lung base that is new since the prior examination. This could represent a pneumatoc jonathan measuring 4.5 cm. Matt Wolf MD on November 21, 2016 at 17:09 Board Certified Radiologist. This report was verified electronically.
--- NOTE | 2016-11-21 18:06 | HHI.PR ---
Subjective Remarks 71 YO WF with VDRF,PF,COPD Had worsening of oxygenation CT chest showes Pneumomedistinum Pt awake, follows commands Objective Vital Signs Vital Signs Date Time Temp Pulse Resp B/P Pulse Ox O2 Delivery O2 Flow Rate FiO2 11/21/16 16:30 90 90 11/21/16 16:29 88 100 11/21/16 14:47 90 80 11/21/16 14:43 91 70 11/21/16 12:36 95 70 11/21/16 12:00 99.2 70 22 131/62 91 11/21/16 08:06 92 70 11/21/16 08:00 99.3 83 22 134/65 92 11/21/16 06:00 70 11/21/16 04:00 92 11/21/16 04:00 97.8 92 24 136/66 91 11/21/16 04:00 75 11/21/16 03:49 92 70 11/21/16 02:00 70 11/21/16 00:17 92 70 11/21/16 00:00 97.5 68 22 101/56 92 11/21/16 00:00 68 11/21/16 00:00 75 11/20/16 22:00 64 11/20/16 20:35 93 70 11/20/16 20:00 97.7 77 22 116/59 95 11/20/16 20:00 75 11/20/16 20:00 77 11/20/16 19:00 100 Mechanical Ventilator 11/20/16 18:00 67 I/O 11/20/16 11/20/16 11/20/16 11/21/16 11/21/16 11/21/16 07:00 15:00 23:00 07:00 15:00 23:00 Intake Total 467 ml 627 ml 1015 ml 1300 ml Output Total 650 ml 700 ml 850 ml 500 ml Balance -183 ml -73 ml 165 ml 800 ml Intake Oral 0 ml 0 ml 0 ml 0 ml IV Total 300 ml 433 ml 720 ml 720 ml Tube Feeding 4 ml 195 ml 370 ml Lipid 47 ml Tube Irrigant 120 ml 20 ml 100 ml 210 ml Other 170 ml Output Urine Total 650 ml 700 ml 850 ml 500 ml # Bowel Movements 0 0 0 0 Result Diagram: 11/21/16 0457 11/21/16 0457 Objective Remarks GENERAL: MBMN Wf, on Vent SKIN: Warm and dry. HEAD: Normocephalic. EYES: No scleral icterus. No injection or drainage. NECK: Supple, trachea midline. No JVD or lymphadenopathy. CARDIOVASCULAR: Regular rate and rhythm without murmurs, gallops, or rubs. RESPIRATORY: Breath sounds equal bilaterally. No accessory muscle use. GASTROINTESTINAL: Abdomen soft, non-tender, nondistended. MUSCULOSKELETAL: No cyanosis, or edema. BACK: Nontender without obvious deformity. No CVA tenderness. A/P Assessment and Plan VDRF Hypoxia Bilat interstitial lung infilt Pneumomediastinum PF PLAN: Vent Support Decrease PEEP 5 Aerosol nebs Cont IV Solumedrol Cont Abx DW Dr.Young ZACARIAS pt and her Ret Ob-Utilization Review Rn Umer Person MD Nov 21, 2016 18:06
--- NOTE | 2016-11-21 19:40 | HHI.IDPN ---
Note Infectious Disease Note Patient on vent. Awakens. Sedated. Had bronchoscopy 11/20/16. Afebrile little secretions. Bronch culture has mold reported. prelim. Noted to have mediastinal air. Also Sub Q emphysema. WBC still elevated. PAST MEDICAL HISTORY 1. Asthma. 2. Pulmonary fibrosis. 3. Gastroesophageal reflux disease. 4. Hemochromatosis. 5. Acid reflux. 6. Cholecystectomy. 7. Lumbar spine surgery. 8. Cervical spine surgery. 9. Hysterectomy. 10. Left parotid gland surgery. 11. Breast reduction. 12. Tonsillectomy. 13. Anterior cervical fusion of C6-C7. ALLERGIES 1. BETADINE. 2. IODINE. 3. THE PATIENT'S REPORTS SHE GETS UPSET STOMACH WITH CIPROFLOXACIN BUT THAT SHE IS UNABLE TO TOLERATE IV CIPROFLOXACIN. ANTIBIOTICS: Aztreonam. Fluconazole. Zyvox. Other meds reviewed. OBJECTIVE: Vital Signs Date Time Temp Pulse Resp B/P Pulse Ox O2 Delivery O2 Flow Rate FiO2 11/21/16 18:00 89 11/21/16 16:40 90 11/21/16 16:30 90 90 11/21/16 16:29 88 100 11/21/16 16:00 99.0 76 22 155/77 96 11/21/16 16:00 90 11/21/16 16:00 76 11/21/16 15:30 88 Mechanical Ventilator 90 11/21/16 14:47 90 80 11/21/16 14:43 91 70 11/21/16 14:00 70 11/21/16 12:36 95 70 11/21/16 12:00 99.2 70 22 131/62 91 11/21/16 12:00 70 11/21/16 12:00 70 11/21/16 10:00 106 11/21/16 08:06 92 70 11/21/16 08:00 99.3 83 22 134/65 92 11/21/16 08:00 70 11/21/16 08:00 83 11/21/16 07:00 92 Mechanical Ventilator 70 11/21/16 06:00 70 11/21/16 04:00 92 11/21/16 04:00 97.8 92 24 136/66 91 11/21/16 04:00 75 11/21/16 03:49 92 70 11/21/16 02:00 70 11/21/16 00:17 92 70 11/21/16 00:00 97.5 68 22 101/56 92 11/21/16 00:00 68 11/21/16 00:00 75 11/20/16 22:00 64 11/20/16 20:35 93 70 11/20/16 20:00 97.7 77 22 116/59 95 11/20/16 20:00 75 11/20/16 20:00 77 11/20/16 11/20/16 11/21/16 15:00 23:00 07:00 Intake Total 627 ml 1015 ml 1300 ml Output Total 700 ml 850 ml 500 ml Balance -73 ml 165 ml 800 ml Intake Oral 0 ml 0 ml 0 ml IV Total 433 ml 720 ml 720 ml Tube Feeding 4 ml 195 ml 370 ml Tube Irrigant 20 ml 100 ml 210 ml Other 170 ml Output Urine Total 700 ml 850 ml 500 ml # Bowel Movements 0 0 0 Laboratory Tests Test 11/20/16 11/21/16 04:54 04:57 White Blood Count 26.1 TH/MM3 23.1 TH/MM3 Red Blood Count 4.02 MIL/MM3 3.46 MIL/MM3 Hemoglobin 12.9 GM/DL 11.1 GM/DL Hematocrit 39.6 % 34.1 % Mean Corpuscular Volume 98.6 FL 98.5 FL Mean Corpuscular Hemoglobin 32.1 PG 32.2 PG Mean Corpuscular Hemoglobin 32.6 % 32.7 % Concent Red Cell Distribution Width 14.0 % 14.2 % Platelet Count 278 TH/MM3 204 TH/MM3 Mean Platelet Volume 10.5 FL 10.6 FL Neutrophils (%) (Auto) 93.1 % 95.3 % Lymphocytes (%) (Auto) 2.9 % 2.4 % Monocytes (%) (Auto) 3.7 % 1.9 % Eosinophils (%) (Auto) 0.1 % 0.1 % Basophils (%) (Auto) 0.2 % 0.3 % Neutrophils # (Auto) 24.3 TH/MM3 22.0 TH/MM3 Lymphocytes # (Auto) 0.7 TH/MM3 0.6 TH/MM3 Monocytes # (Auto) 1.0 TH/MM3 0.4 TH/MM3 Eosinophils # (Auto) 0.0 TH/MM3 0.0 TH/MM3 Basophils # (Auto) 0.1 TH/MM3 0.1 TH/MM3 CBC Comment DIFF FINAL DIFF FINAL Differential Comment Laboratory Tests Test 11/20/16 11/20/16 11/21/16 04:54 11:56 04:57 Sodium Level 148 MEQ/L 146 MEQ/L Potassium Level 3.9 MEQ/L 3.8 MEQ/L Chloride Level 110 MEQ/L 111 MEQ/L Carbon Dioxide Level 30.3 MEQ/L 27.1 MEQ/L Anion Gap 8 MEQ/L 8 MEQ/L Blood Urea Nitrogen 38 MG/DL 46 MG/DL Creatinine 1.12 MG/DL 1.24 MG/DL Estimat Glomerular Filtration 48 ML/MIN 43 ML/MIN Rate Random Glucose 99 MG/DL 177 MG/DL Lactic Acid Level 1.6 mmol/L 2.2 mmol/L Calcium Level 9.1 MG/DL 8.6 MG/DL Phosphorus Level 4.1 MG/DL 2.5 MG/DL Magnesium Level 2.3 MG/DL 2.4 MG/DL Total Bilirubin 0.4 MG/DL Aspartate Amino Transf 23 U/L (AST/SGOT) Alanine Aminotransferase 75 U/L (ALT/SGPT) Alkaline Phosphatase 92 U/L Total Protein 6.1 GM/DL Albumin 1.9 GM/DL Microbiology Date/Time Procedure Status Source Growth 11/19/16 00:00 Gram Stain Ordered Sputum Endotracheal Pending 11/19/16 00:00 Sputum Culture Ordered Sputum Endotracheal Pending 11/19/16 18:00 Gram Stain Received Sputum Endotracheal Pending 11/19/16 18:00 Sputum Culture Received Sputum Endotracheal Pending 11/19/16 18:00 Gram Stain - Final Resulted Bronchial Washings Other 11/19/16 18:00 Bronchial Culture - Preliminary Resulted Mold Species 11/20/16 13:36 Aerobic Blood Culture - Preliminary Resulted Blood Peripheral NO GROWTH IN 1 DAY 11/20/16 13:36 Anaerobic Blood Culture - Preliminary Resulted Blood Peripheral NO GROWTH IN 1 DAY 11/20/16 13:41 Aerobic Blood Culture - Preliminary Resulted Blood Peripheral NO GROWTH IN 1 DAY 11/20/16 13:41 Anaerobic Blood Culture - Preliminary Resulted Blood Peripheral NO GROWTH IN 1 DAY 11/20/16 13:45 Urine Culture - Preliminary Resulted Urine Catheterized Urine NO GROWTH IN 24 HOURS. Microbiology Date/Time Procedure Status Source Growth 11/19/16 00:00 Gram Stain Ordered Sputum Endotracheal Pending 11/19/16 00:00 Sputum Culture Ordered Sputum Endotracheal Pending 11/19/16 18:00 Gram Stain Received Sputum Endotracheal Pending 11/19/16 18:00 Sputum Culture Received Sputum Endotracheal Pending 11/19/16 18:00 Gram Stain - Final Resulted Bronchial Washings Other 11/19/16 18:00 Bronchial Culture - Preliminary Resulted Staphylococcus Species IMAGING: Chest X-Ray 11/21/16 0600 Signed Impressions: Service Date/Time: Monday, November 21, 2016 04:25 - CONCLUSION: 1. Persistent pneumomediastinum. No pneumothorax is identified. 2. Stable bilateral lower lung zone airspace consolidation. 3. New left axillary region soft tissue air from uncertain etiology. Jimmy Lara MD Chest CT 11/21/16 0000 Signed Impressions: Service Date/Time: Monday, November 21, 2016 16:14 - CONCLUSION: 1. Improvement of previous diffuse groundglass opacity. Probable developing fibrotic changes at the bases with some traction bronchiectasis. 2. Extensive air leak with pneumomediastinum and subcutaneous emphysema. There is also some loculated air at the right lung base that is new since the prior examination. This could represent a pneumatocele measuring 4.5 cm. Matt Wolf MD PHYSICAL EXAMINATION GENERAL: No acute distress. HEENT: No icterus. Dry mucosa. NECK: No adenopathy or swelling. Neck collar in place. LUNGS: Bilateral rhonchi same. HEART: Regular S1 and S2. No audible murmurs. ABDOMEN: Decreased bowel sounds, soft. EXTREMITIES: No edema. Pulses 2+ radial and dorsalis pedis. SKIN: No rash. NEUROLOGIC: non focal. PSYCHIATRIC: Alert on arousal. IMPRESSION 1. Fever, questionable etiology. Temp improved initially after stopping beta lactam abx. ? Pneumonia. Staph in sputum culture. 2. Acute respiratory failure. Extubated. Reintubated. 3. Leukocytosis. ? due to PNA. WBC still elevated. Also has superficial distal r. cephalic vein thrombus. Also on Solumedrol. However still has abnormal CXR. ? result of pulmonary fibrosis. 4. Sepsis on admission indicated by elevated heart rate, elevated temperature, elevated white blood cell count. Source unclear but likely pulmonary. 5. Abnormal chest x-ray with bilateral interstitial infiltrates suggesting possible pneumonia versus COPD or fibrosis. RECOMMENDATIONS 1. Continue Aztreonam for gram negative pulmonary coverage. 2. Change Fluconazole to Micafungin. 3. Continue Zyvox IV. Will hold Welbutrim because of Zyvox interaction. 4. Monitor white blood cell count and temp. 5. Monitor clinical status. 6. Follow sputum culture. The mold may be contaminant. However she has been on steroids. Roberto Phan MD Nov 21, 2016 19:40
[2016-11-21] MEDS: MICAFUNGIN INJ 100 MG in SODIUM CHLORIDE 0.9% INJ 100 ML IV SCH (20:28)
[2016-11-21] MEDS: MONTELUKAST SODIUM 10 MG TAB PO SCH (20:29)
[2016-11-21] MEDS: ALPRAZolam 0.5 MG TAB PO PRN (20:46)
[2016-11-22] VITALS (16 sets, daily range): BP systolic 122–178; BP diastolic 61–85; PULSE 57–86; RESP 22–26; TEMP 98.3–99.3; O2SAT 88–96
[2016-11-22] MEDS: LINEZOLID 600 MG PREMIX 300 ML IV SCH ×2 (02:49→13:29)
[2016-11-22] MEDS: RESP: ALBUTEROL 2.5 MG/IPRATROPIUM 0.5 MG NEB (SCH) NEB ×4 (04:35→20:04)
[2016-11-22] MEDS: methylPREDNISolone SOD SUCC 40 MG/1 ML VIAL IV SCH ×3 (05:25→21:02)
[2016-11-22] MEDS: THYROID 30 MG TAB PO SCH (05:25)
[2016-11-22] MEDS: HEPARIN SODIUM - SQ 10,000 UNITS/ML VIAL SQ SCH ×3 (05:26→21:03)
[2016-11-22] MEDS: DILTIAZEM HCL 60 MG TAB PO SCH ×3 (05:26→17:37)
[2016-11-22 05:44] LABS: BLOOD GAS BASE EXCESS 3.6 mmol/L (-2-2); BLOOD GAS HCO3 28 mmol/L (22-26); BLOOD GAS METHEMOGLOBIN 1.1 % (0-2); BLOOD GAS O2 HGB SATURATION 89 % (90-100); BLOOD GAS OXYGEN CONTENT 14.3 Vol % (12.0-20.0); BLOOD GAS PCO2 42 mmHg (38-42); BLOOD GAS PO2 65 mmHg (61-120); BLOOD GAS TOTAL HGB 11.4 G/DL (12.0-16.0); TEMP CORR TO 98.6
[2016-11-22 05:45] LABS: CRITICAL VALUE YES; OXYGEN DEVICE VENTILATOR
[2016-11-22 05:46] LABS: DRAW SITE RT RADIAL; FIO2 90 %; NUMBER OF ARTERIAL PUNCTURES 1; STAT NO; ULNAR PULSE PRESENT; VENT SETTINGS PC/AC
[2016-11-22 05:47] LABS: ALKALINE PHOSPHATASE 96 U/L (45-117); ALT (GPT) 71 U/L (10-53); ANION GAP 8 MEQ/L (5-15); AST (GOT) 42 U/L (15-37); BICARBONATE 29.2 MEQ/L (21.0-32.0); CHLORIDE 110 MEQ/L (98-107); GLOMERULAR FILTRATION RATE 43 ML/MIN (>89); POTASSIUM 4.7 MEQ/L (3.5-5.1); SODIUM (NA) 147 MEQ/L (136-145); TOTAL BILIRUBIN ADULT 0.4 MG/DL (0.2-1.0)
[2016-11-22 05:52] LABS: BLOOD UREA NITROGEN 48 MG/DL (7-18)
[2016-11-22] MEDS: AZTREONAM INJ 1,000 MG in SODIUM CHLORIDE 0.9% INJ 100 ML IV SCH ×2 (06:01→15:12)
[2016-11-22] MEDS: HIGH DOSE INSULIN NOVOLOG SUPPLEMENTAL SCALE SQ SCH ×3 (06:01→17:36)
--- NOTE | 2016-11-22 06:44 | RADRPT ---
EXAM DATE/TIME: 11/22/2016 06:00 [facility] COMPARISON: CT THORAX W/O CONTRAST, November 21, 2016, 16:14. CHEST SINGLE AP, November 21, 2016, 4:25. INDICATIONS : Shortness of breath, possible pulmonary disease. MEDICAL HISTORY : Hypertension. Chronic obstructive pulmonary disease. SURGICAL HISTORY : None. ENCOUNTER: Subsequent ACUITY: 2 weeks PAIN SCORE: Non-responsive. LOCATION: Bilateral chest FINDINGS: Portable AP view of the chest demonstrates a normal-sized cardiac silhouette. ETT and NG tube remain present. There are stable bibasilar opacities. There is left chest wall and axillary region soft tiss ue air and suspected pneumomediastinum. No pneumothorax is visualized. CONCLUSION: 1. Stable chest x-ray with bilateral mid and lower lung zone airspace consolidation. 2. Stable pneumomediastinum and chest wall soft tissue air. No pneumothorax is appreciated. Jimmy Lara MD on November 22, 2016 at 6:41 Board Certified Radiologist. This report was verified electronically.
[2016-11-22] MEDS: SODIUM CHLORIDE 0.9% FLUSH 5 ML FLUSH FLUSH SCH ×2 (07:36→20:51)
[2016-11-22] MEDS: TIOTROPIUM BROMIDE 18 MCG INH INH SCH (07:36)
[2016-11-22] MEDS: CETIRIZINE HCL SYRUP 10 MG/10 ML UDC TUBE SCH (07:36)
[2016-11-22] MEDS: LEVOCETIRIZINE 5 MG PO SCH (07:36)
[2016-11-22] MEDS: FUROSEMIDE 40 MG/5 ML UNIT DOSE CUP TUBE SCH ×2 (07:36→17:37)
[2016-11-22] MEDS: CHLORHEXIDINE 0.12% (ORAL KIT) 15 ML CUP MT SCH ×2 (07:36→20:51)
[2016-11-22] MEDS: METOPROLOL TARTRATE 25 MG TAB PO SCH ×2 (07:37→20:47)
[2016-11-22] MEDS: POLYETHYLENE GLYCOL 17 GM PKG PO SCH ×2 (07:37→20:47)
[2016-11-22] MEDS: DOCUSATE SODIUM 100 MG CAP PO SCH ×2 (07:37→20:47)
[2016-11-22] MEDS: ACETAMINOPHEN/HYDROcodone 325 MG/10 MG TAB PO PRN (07:37)
[2016-11-22 09:56] LABS: BLOOD GAS BASE EXCESS 4.1 mmol/L (-2-2); BLOOD GAS CARBOXYHEMOGLOBIN 0.9 % (0-4); BLOOD GAS HCO3 28 mmol/L (22-26); BLOOD GAS O2 HGB SATURATION 92 % (90-100); BLOOD GAS OXYGEN CONTENT 14.1 Vol % (12.0-20.0); BLOOD GAS PCO2 45 mmHg (38-42); BLOOD GAS PO2 76 mmHg (61-120); BLOOD GAS TOTAL HGB 10.8 G/DL (12.0-16.0); CRITICAL VALUE NO; OXYGEN DEVICE VENTILATOR; TEMP CORR TO 98.6
[2016-11-22 09:57] LABS: DRAW SITE RT RADIAL; FIO2 85 %; NUMBER OF ARTERIAL PUNCTURES 2; STAT NO; ULNAR PULSE PRESENT
[2016-11-22] MEDS: RESP: BUDESONIDE 0.5 MG/2 ML NEB NEB SCH ×2 (10:38→20:04)
--- NOTE | 2016-11-22 11:37 | HHI.CCPN ---
Subjective Remarks/Hospital Course Patient is a 71-year-old female with history of pulmonary fibrosis, asthma, probable COPD on home oxygen who had a recent fall at home and sustained C7/ T1 fractures. She was evaluated by neurosurgery and conservatively managed and placed in a cervical collar. She was discharged home on 11/04/16. The pt developed inability to ambulate at home and also had urinary retention. Patient 's also noticed that she had been more confused. ER workup included a CT of the head which was negative, CT of the abdomen pelvis showed markedly distended bladder with mild to moderate hydronephrosis. Sanders catheter was inserted. Chest x-ray showed increasing bilateral infiltrates. Patient was admitted to the hospitalist service, on broad-spectrum antibiotics with Zosyn and vancomycin, breathing treatments. Neurology Dr. Xiong was also consulted Today was noted to have increasing shortness of breath today, tachypnea and hypoxia requiring a partial nonrebreather. Also noted to have A flutter with rapid ventricular response. Cardizem boluses 2 was given on Cardizem infusion was started. Because of her worsening respiratory failure patient was moved to the ICU. Critical care medicine consulted and I immediately evaluated the patient. She is in moderate distress on partial nonrebreather breathing 35-40/ m. Chest exam shows bilateral crackles and wheezes. I have added Solu-Medrol and scheduled breathing treatments and ordered BiPAP 10 over 5. I explained to the patient and the that patient may need endotracheal intubation and mechanical ventilation if she is not improving with BiPAP. 11/07 Patient is sedated with Diprivan and intubated. Afebrile. On Cardizem drip 5mg/hr, for MRI spine and CT thorax today. 11/08 Patient is sedated with Fentnayl and intubated. Afebrile. Renal function worse today with Cr: 1.65 from 1.15 11/09 Tmax 102.2. The patient's sputum culture grew preliminarily budding yeast with pseudohyphae. Diflucan initiated yesterday white count trending down. Lasix discontinued yesterday secondary to elevated creatinine level. 11/10 Afebrile. Able to wean oxygenation to FiO2 of 40% today. CPAP trials plan for today. The patient was noted to be hypernatremic free water flushes were added to her tube feedings. Creatinine slightly improved today. PT consulted Functional maintenance with specific requirements to be referred to neurosurgery for restrictions of any type of activities regarding functional maintenance. 11/11 Tmax 101.7. Patient continues to have persistent fevers, on antibiotic therapy, ID consulted,Dr Phan, appreciate recommendations. The patient has elevations in heart rate with activity/movement, received 2 doses of metoprolol with some diminution, from 160 to 90's yesterday. Overnight the patient's heart rate remained in the 120's. CPAP trials were initiated yesterday the patient was able to maintain the trial for approximately 4 hours. 11/12 Persistent fever last 24 hours, patient placed on a cooling blanket. Antibiotics adjusted per ID, Dr. Phan. Ultrasound Doppler obtained bilateral upper and lower extremities results superficial thrombus white distal cephalic vein. The patient was maintained on CPAP approximately 9 hours yesterday. Fentanyl infusion resumed today, patient complained of pain. Scheduled by mouth narcotics initiated. 11/13 CPAP trials lasted 11 hours. Patient continues to have fevers on a cooling blanket, Dr. Phan managing antibiotic regimen. Patient can continuously complain of pain, scheduled pain meds multimodal therapy approach initiated. 11/14 Was on CPAP 10/8 FiO2 55% for several hours and then terminated due to desaturation. WBC up to 22.9 without fever. No significant respiratory secretions. Had diarrhea yesterday but now RN reports no BM today after holding bowel regimen. Abdomen benign and tolerating tube feeds. Check for C diff if has a loose stool. Panculture sent. updated at bedside. Has no invasive lines. Subjective: 11/15 Diuresed net negative 1 L last shift following lasix. Creatinine downtrend to 1.19. Sodium down to 150. Received 6 am dose of Lasix. FiO2 weaned to 45%. WBC down 17. Afebrile. Placed on CPAP 5/5 and TV 550 and RSBI 30s. Sats 89-92% on 50%. 11/16 Tmax in 100.1. The patient continues today on CPAP trial PaO2 65 on FiO2 of 55%. The patient has been diuresed over the last several days, sodium is down trending now 145 tube feeds are off, will plan for a trial of extubation. As discussed with the Dr. Rodríguez that the patient possibly will need tracheostomy. Dr. Aguilera consulted for possible tracheostomy. 11/17 Afebrile. The patient was extubated yesterday afternoon .The patient tolerated BiPAP overnight, maintaining O2 sat 9294%, on FiO2 of 50%. Plan to transition to high flow nasal cannula if tolerated. 11/18 The patient tolerated-flow nasal cannula for the last 24 hours. Attempts at weaning FiO2 less than 65% unsuccessful at this point. O2 sat 8892%. Patient unable to perform incentive spirometry at this time. 11/19 The patient had respiratory decompensation this afternoon, requiring emergent intubation. The patient also underwent fiberoptic bronchoscopy which was unremarkable, and obtained BAL specimens as she continues to have fevers. 11/20 Tmax 100.0. The patient required emergent intubation yesterday afternoon secondary to hypoxemic/hypercapnic respiratory failure. A BAL was performed to obtain specimens secondary to elevation in white count. BAL revealed staph aureus. The process of weaning FiO2 is currently underway, FiO2 currently 65%. The patient complained of abdominal pain last evening, CT scan obtained. 11/21 This afternoon patient experiencing increased O2 requirements to maintain a PaO2 of 60. Chest x-ray reviewed noting possible pneumomediastinum. PEEP 5, stat CT chest pending. CT of the abdomen benign, patient tolerating tube feeds.Pt transported to CT scanner PEEP 8 required for adequate oxygenation. Returned from CT scanner, returned to PEEP of 5, FIO2 90%. 11/22 The patient was maintained on an FiO2 of 90% overnight, O2 sats remained 92 94%. This a.m. FiO2 was decreased to 85%, P/F Ratio 84. Repeat chest x-ray revealed stable pneumomediastinum CT surgery was consulted yesterday, appreciate recommendations. Bronchial washings resulted in mold, and moderate staph aureus growth. Objective Vital Signs Date Time Temp Pulse Resp B/P Pulse Ox O2 Delivery O2 Flow Rate FiO2 11/22/16 10:40 93 80 11/22/16 08:00 99.3 59 22 147/71 11/21/16 15:30 Mechanical Ventilator 11/19/16 09:20 30.00 Intake and Output 11/21/16 11/21/16 11/22/16 08:00 16:00 00:00 Intake Total 1300 ml 867 ml 822 ml Output Total 500 ml 375 ml 650 ml Balance 800 ml 492 ml 172 ml Result Diagram: 11/21/16 0457 11/22/16 0413 Other Results Laboratory Tests Test 11/21/16 11/22/16 11/22/16 15:24 05:30 09:44 Blood Gas Puncture Site RT RADIAL RT RADIAL RT RADIAL Blood Gas Patient Temperature 98.6 98.6 98.6 Blood Gas HCO3 29 mmol/L 28 mmol/L 28 mmol/L (22-26) (22-26) (22-26) Blood Gas Base Excess 5.2 mmol/L 3.6 mmol/L 4.1 mmol/L (-2-2) (-2-2) (-2-2) Blood Gas Oxygen Saturation 85 % (90-100) 89 % (90-100) 92 % (90-100) Arterial Blood pH 7.47 7.43 7.41 (7.380-7.420) (7.380-7.420) (7.380-7.420) Arterial Blood Partial 41 mmHg (38-42) 42 mmHg (38-42) 45 mmHg (38-42) Pressure CO2 Arterial Blood Partial 55 mmHg 65 mmHg 76 mmHg Pressure O2 (61-120) (61-120) (61-120) Arterial Blood Oxygen Content 13.6 Vol % 14.3 Vol % 14.1 Vol % (12.0-20.0) (12.0-20.0) (12.0-20.0) Arterial Blood 1.0 % (0-4) 1.0 % (0-4) 0.9 % (0-4) Carboxyhemoglobin Arterial Blood Methemoglobin 0.9 % (0-2) 1.1 % (0-2) 1.0 % (0-2) Blood Gas Hemoglobin 11.4 G/DL 11.4 G/DL 10.8 G/DL (12.0-16.0) (12.0-16.0) (12.0-16.0) Oxygen Delivery Device VENTILATOR VENTILATOR VENTILATOR Blood Gas Ventilator Setting PCAC PC/AC 22/+5/1.0/IP32 22/32IP/1.0IT/5 Blood Gas Inspired Oxygen 80 % 90 % 85 % Imaging Last Impressions Chest X-Ray 11/22/16 0600 Signed Impressions: Service Date/Time: Tuesday, November 22, 2016 06:00 - CONCLUSION: 1. Stable chest x-ray with bilateral mid and lower lung zone airspace consolidation. 2. Stable pneumomediastinum and chest wall soft tissue air. No pneumothorax is appreciated. Jimmy Lara MD Chest CT 11/21/16 0000 Signed Impressions: Service Date/Time: Monday, November 21, 2016 16:14 - CONCLUSION: 1. Improvement of previous diffuse groundglass opacity. Probable developing fibrotic changes at the bases with some traction bronchiectasis. 2. Extensive air leak with pneumomediastinum and subcutaneous emphysema. There is also some loculated air at the right lung base that is new since the prior examination. This could represent a pneumatocele measuring 4.5 cm. Matt Wolf MD Abdomen X-Ray 11/19/16 0000 Signed Impressions: Service Date/Time: November 22:26 - CONCLUSION: Nasogastric tube has its tip near the gastric outlet. Nonobstructive bowel gas pattern. Jimmy Hoffmann MD Abdomen CT 11/19/16 0000 Signed Impressions: Service Date/Time: Sunday, November 20, 2016 04:24 - CONCLUSION: 1. No acute finding is identified within the abdomen on this noncontrast examination. 2. There is severe airspace consolidation/groundglass attenuation in both lung bases. Pneumomediastinum is present and there is a small right pneumothorax. Jimmy Lara MD Upper Extremity Ultrasound 11/11/16 0000 Signed Impressions: Service Date/Time: Friday, November 11, 2016 21:51 - CONCLUSION: 1. No evidence of DVT. 2. Focal superficial thrombosis involving the distal right cephalic vein. Roland Maier MD Lower Extremity Ultrasound 11/11/16 0000 Signed Impressions: Service Date/Time: Friday, November 11, 2016 21:22 - CONCLUSION: Negative exam with no evidence of deep venous thrombosis. Rex Corcoran MD Liver Ultrasound 11/09/16 0000 Signed Impressions: Service Date/Time: Wednesday, November 09, 2016 08:03 - CONCLUSION: 1. No acute abnormality. 2. Prior cholecystectomy. Common bile duct is within the normal range in terms of size for patient status post cholecystectomy. 3. Dystrophic calcification involving the right lobe of the liver. Scott Mittal Jr., MD Thoracic Spine MRI 11/07/16 0000 Signed Impressions: Service Date/Time: Monday, November 07, 2016 10:23 - CONCLUSION: 1. There is a fracture of the T1 vertebral body and T5 vertebral body. No significant height loss is present and there is no retropulsion of any fracture fragment. No canal stenosis is present. 2. Please refer to today's chest CT examination report for description of the pulmonary findings. Jimmy Lara MD Renal Ultrasound 11/06/16 0000 Signed Impressions: Service Date/Time: Sunday, November 06, 2016 22:24 - CONCLUSION: Probable complicated cyst midpole left kidney measuring 2.0 cm. Otherwise negative exam. No evidence of hydronephrosis. Scott Cantor MD Head CT 11/04/16 2326 Signed Impressions: Service Date/Time: Friday, November 04, 2016 23:45 - CONCLUSION: No acute intracranial findings. Jimmy Felton MD Abdomen/Pelvis CT 11/04/16 0000 Signed Impressions: Service Date/Time: Friday, November 04, 2016 23:48 - CONCLUSION: Markedly dilated urinary bladder with mild-moderate bilateral hydronephrosis Jimmy Felton MD Last Impressions Chest X-Ray 11/15/16 0000 Signed Impressions: Service Date/Time: Tuesday, November 15, 2016 11:02 - CONCLUSION: No significant interval change. Roland Maier MD Upper Extremity Ultrasound 11/11/16 0000 Signed Impressions: Service Date/Time: Friday, November 11, 2016 21:51 - CONCLUSION: 1. No evidence of DVT. 2. Focal superficial thrombosis involving the distal right cephalic vein. Roland Maier MD Lower Extremity Ultrasound 11/11/16 0000 Signed Impressions: Service Date/Time: Friday, November 11, 2016 21:22 - CONCLUSION: Negative exam with no evidence of deep venous thrombosis. Rex Corcoran MD Liver Ultrasound 11/09/16 0000 Signed Impressions: Service Date/Time: Wednesday, November 09, 2016 08:03 - CONCLUSION: 1. No acute abnormality. 2. Prior cholecystectomy. Common bile duct is within the normal range in terms of size for patient status post cholecystectomy. 3. Dystrophic calcification involving the right lobe of the liver. Scott Mittal Jr., MD Thoracic Spine MRI 11/07/16 0000 Signed Impressions: Service Date/Time: Monday, November 07, 2016 10:23 - CONCLUSION: 1. There is a fracture of the T1 vertebral body and T5 vertebral body. No significant height loss is present and there is no retropulsion of any fracture fragment. No canal stenosis is present. 2. Please refer to today's chest CT examination report for description of the pulmonary findings. Jimmy Lara MD Renal Ultrasound 11/06/16 0000 Signed Impressions: Service Date/Time: Sunday, November 06, 2016 22:24 - CONCLUSION: Probable complicated cyst midpole left kidney measuring 2.0 cm. Otherwise negative exam. No evidence of hydronephrosis. Scott Cantor MD Chest CT 11/06/16 0000 Signed Impressions: Service Date/Time: Monday, November 07, 2016 10:50 - CONCLUSION: Severe diffuse geographic areas of groundglass attenuation bilaterally with trace bilateral pleural effusions. The pattern is nonspecific but can be seen with infection and ARDS among other etiologies. Jimmy Lara MD Head CT 11/04/16 2326 Signed Impressions: Service Date/Time: Friday, November 04, 2016 23:45 - CONCLUSION: No acute intracranial findings. Jimmy Felton MD Abdomen/Pelvis CT 11/04/16 0000 Signed Impressions: Service Date/Time: Friday, November 04, 2016 23:48 - CONCLUSION: Markedly dilated urinary bladder with mild-moderate bilateral hydronephrosis Jimmy Felton MD Last Impressions Chest X-Ray 11/12/16 0600 Signed Impressions: Service Date/Time: October 02:40 - CONCLUSION: No significant interval change. Roland Maier MD Upper Extremity Ultrasound 11/11/16 0000 Signed Impressions: Service Date/Time: Friday, November 11, 2016 21:51 - CONCLUSION: 1. No evidence of DVT. 2. Focal superficial thrombosis involving the distal right cephalic vein. Roland Maier MD Lower Extremity Ultrasound 11/11/16 0000 Signed Impressions: Service Date/Time: Friday, November 11, 2016 21:22 - CONCLUSION: Negative exam with no evidence of deep venous thrombosis. Rex Corcoran MD Liver Ultrasound 11/09/16 0000 Signed Impressions: Service Date/Time: Wednesday, November 09, 2016 08:03 - CONCLUSION: 1. No acute abnormality. 2. Prior cholecystectomy. Common bile duct is within the normal range in terms of size for patient status post cholecystectomy. 3. Dystrophic calcification involving the right lobe of the liver. Scott Mittal Jr., MD Thoracic Spine MRI 11/07/16 0000 Signed Impressions: Service Date/Time: Monday, November 07, 2016 10:23 - CONCLUSION: 1. There is a fracture of the T1 vertebral body and T5 vertebral body. No significant height loss is present and there is no retropulsion of any fracture fragment. No canal stenosis is present. 2. Please refer to today's chest CT examination report for description of the pulmonary findings. Jimmy Lara MD Renal Ultrasound 11/06/16 0000 Signed Impressions: Service Date/Time: Sunday, November 06, 2016 22:24 - CONCLUSION: Probable complicated cyst midpole left kidney measuring 2.0 cm. Otherwise negative exam. No evidence of hydronephrosis. Scott Cantor MD Chest CT 11/06/16 0000 Signed Impressions: Service Date/Time: Monday, November 07, 2016 10:50 - CONCLUSION: Severe diffuse geographic areas of groundglass attenuation bilaterally with trace bilateral pleural effusions. The pattern is nonspecific but can be seen with infection and ARDS among other etiologies. Jimmy Lara MD Head CT 11/04/16 2326 Signed Impressions: Service Date/Time: Friday, November 04, 2016 23:45 - CONCLUSION: No acute intracranial findings. Jimmy Felton MD Abdomen/Pelvis CT 11/04/16 0000 Signed Impressions: Service Date/Time: Friday, November 04, 2016 23:48 - CONCLUSION: Markedly dilated urinary bladder with mild-moderate bilateral hydronephrosis Jimmy Felton MD Last Impressions Chest X-Ray 11/12/16 0600 Signed Impressions: Service Date/Time: October 02:40 - CONCLUSION: No significant interval change. Roland Maier MD Upper Extremity Ultrasound 11/11/16 0000 Signed Impressions: Service Date/Time: Friday, November 11, 2016 21:51 - CONCLUSION: 1. No evidence of DVT. 2. Focal superficial thrombosis involving the distal right cephalic vein. Roland Maier MD Lower Extremity Ultrasound 11/11/16 0000 Signed Impressions: Service Date/Time: Friday, November 11, 2016 21:22 - CONCLUSION: Negative exam with no evidence of deep venous thrombosis. Rex Corcoran MD Liver Ultrasound 11/09/16 0000 Signed Impressions: Service Date/Time: Wednesday, November 09, 2016 08:03 - CONCLUSION: 1. No acute abnormality. 2. Prior cholecystectomy. Common bile duct is within the normal range in terms of size for patient status post cholecystectomy. 3. Dystrophic calcification involving the right lobe of the liver. Scott Mittal Jr., MD Thoracic Spine MRI 11/07/16 0000 Signed Impressions: Service Date/Time: Monday, November 07, 2016 10:23 - CONCLUSION: 1. There is a fracture of the T1 vertebral body and T5 vertebral body. No significant height loss is present and there is no retropulsion of any fracture fragment. No canal stenosis is present. 2. Please refer to today's chest CT examination report for description of the pulmonary findings. Jimmy Lara MD Renal Ultrasound 11/06/16 0000 Signed Impressions: Service Date/Time: Sunday, November 06, 2016 22:24 - CONCLUSION: Probable complicated cyst midpole left kidney measuring 2.0 cm. Otherwise negative exam. No evidence of hydronephrosis. Scott Cantor MD Chest CT 11/06/16 0000 Signed Impressions: Service Date/Time: Monday, November 07, 2016 10:50 - CONCLUSION: Severe diffuse geographic areas of groundglass attenuation bilaterally with trace bilateral pleural effusions. The pattern is nonspecific but can be seen with infection and ARDS among other etiologies. Jimmy Lara MD Head CT 11/04/16 2326 Signed Impressions: Service Date/Time: Friday, November 04, 2016 23:45 - CONCLUSION: No acute intracranial findings. Jimmy Felton MD Abdomen/Pelvis CT 11/04/16 0000 Signed Impressions: Service Date/Time: Friday, November 04, 2016 23:48 - CONCLUSION: Markedly dilated urinary bladder with mild-moderate bilateral hydronephrosis Jimmy Felton MD Last Impressions Liver Ultrasound 11/09/16 0000 Signed Impressions: Service Date/Time: Wednesday, November 09, 2016 08:03 - CONCLUSION: 1. No acute abnormality. 2. Prior cholecystectomy. Common bile duct is within the normal range in terms of size for patient status post cholecystectomy. 3. Dystrophic calcification involving the right lobe of the liver. Scott Mittal Jr., MD Chest X-Ray 11/09/16 0000 Signed Impressions: Service Date/Time: Wednesday, November 09, 2016 03:36 - CONCLUSION: Mild improvement in the bilateral interstitial infiltrates. Roland Maier MD Thoracic Spine MRI 11/07/16 0000 Signed Impressions: Service Date/Time: Monday, November 07, 2016 10:23 - CONCLUSION: 1. There is a fracture of the T1 vertebral body and T5 vertebral body. No significant height loss is present and there is no retropulsion of any fracture fragment. No canal stenosis is present. 2. Please refer to today's chest CT examination report for description of the pulmonary findings. Jimmy Lara MD Renal Ultrasound 11/06/16 0000 Signed Impressions: Service Date/Time: Sunday, November 06, 2016 22:24 - CONCLUSION: Probable complicated cyst midpole left kidney measuring 2.0 cm. Otherwise negative exam. No evidence of hydronephrosis. Scott Cantor MD Chest CT 11/06/16 0000 Signed Impressions: Service Date/Time: Monday, November 07, 2016 10:50 - CONCLUSION: Severe diffuse geographic areas of groundglass attenuation bilaterally with trace bilateral pleural effusions. The pattern is nonspecific but can be seen with infection and ARDS among other etiologies. Jimmy Lara MD Head CT 11/04/16 2326 Signed Impressions: Service Date/Time: Friday, November 04, 2016 23:45 - CONCLUSION: No acute intracranial findings. Jimmy Felton MD Abdomen/Pelvis CT 11/04/16 0000 Signed Impressions: Service Date/Time: Friday, November 04, 2016 23:48 - CONCLUSION: Markedly dilated urinary bladder with mild-moderate bilateral hydronephrosis Jimmy Felton MD Last Impressions Chest X-Ray 11/07/16 0600 Signed Impressions: Service Date/Time: Monday, November 07, 2016 05:03 - CONCLUSION: Persistent and stable bilateral air space opacities in the medial lungs. Scott Cantor MD Thoracic Spine MRI 11/07/16 0000 Signed Impressions: Service Date/Time: Monday, November 07, 2016 10:23 - CONCLUSION: 1. There is a fracture of the T1 vertebral body and T5 vertebral body. No significant height loss is present and there is no retropulsion of any fracture fragment. No canal stenosis is present. 2. Please refer to today's chest CT examination report for description of the pulmonary findings. Jimmy Lara MD Renal Ultrasound 11/06/16 0000 Signed Impressions: Service Date/Time: Sunday, November 06, 2016 22:24 - CONCLUSION: Probable complicated cyst midpole left kidney measuring 2.0 cm. Otherwise negative exam. No evidence of hydronephrosis. Scott Cantor MD Chest CT 11/06/16 0000 Signed Impressions: Service Date/Time: Monday, November 07, 2016 10:50 - CONCLUSION: Severe diffuse geographic areas of groundglass attenuation bilaterally with trace bilateral pleural effusions. The pattern is nonspecific but can be seen with infection and ARDS among other etiologies. Jimmy Lara MD Head CT 11/04/16 2326 Signed Impressions: Service Date/Time: Friday, November 04, 2016 23:45 - CONCLUSION: No acute intracranial findings. Jimmy Felton MD Abdomen/Pelvis CT 11/04/16 0000 Signed Impressions: Service Date/Time: Friday, November 04, 2016 23:48 - CONCLUSION: Markedly dilated urinary bladder with mild-moderate bilateral hydronephrosis Jimmy Felton MD Objective Remarks GENERAL: Patient is 71 yo female, critically ill appearing responsive, currently on fentanyl infusion on 100 mcgs SKIN: Warm and dry. Multiple ecchymotic bruises HEAD: Normocephalic. EYES: No scleral icterus. No injection or drainage. NECK: Supple, trachea midline. No JVD or lymphadenopathy. [place] J C-collar in place .Orotracheal intubated. CARDIOVASCULAR: Regular rate and rhythm without murmurs, gallops, or rubs. RESPIRATORY: Breath sounds equal bilaterally , coarse breath sounds. Mechanical ventilation GASTROINTESTINAL: Abdomen soft, non-tender, nondistended. NG tube in situ MUSCULOSKELETAL: No cyanosis, 1-2+ edema, all extremities. NEURO: GCS 11T, RASS -1, following commands. Urinary Catheter: Yes Sanders insert reason: ICU Pt Getting Diuretics A/P Assessment and Plan NEURO: Acute metabolic encephalopathy, improved C7-T1 fracture (T1 vertebral body comminuted fracture, bilateral C7 pedicle fracture extending to the right facet. Remote history of anterior C6-C7 and C4-C5 fusion with plate placement. Pain H/O Chronic pain syndrome Pain control -multimodal pain therapy-Roxicodone scheduled every 6 hours, fentanyl infusion for ventilator synchrony -GCS 11T currently on fentanyl infusion, patient's normal VAS scale for chronic pain at home is 7/10. Patient has related pain control better with Roxicodone and tramadol, rated 4/10 -CT head negative for acute findings. - 11/07 MRI spine: Fracture of the T1 vertebral body and T5 vertebral body. - Xanax 0.5 bid PRN RESP: Acute hypoxemic / hypercapneic respiratory failure Pulmonary fibrosis/COPD exacerbation History of asthma Probable HCAP Pneumomediastinum Severe ARDS -Glidescope intubation 1 attempt 11/06 (Dr. Marquez) -Bronchodilators scheduled -Continue Solumedrol 20 mg IV every [address] Escalera, Pulmonary following -home med on hold: Spiriva 18 mcg inhaled daily<Singulair 10 po hs Budesonide 0.5 neb q12. - Pulmonary is following-Dr. Escalera -CT chest showed diffuse GGO b/l -Sputum culture11/08 -budding yeast with pseudohyphae -Sputum Culture 11/09-Rare gram negative rods -Discussed with , holding off on initiation of Xolair at this time due to concern for infection. -Extubated 11/16, placed on BiPAP 01/06 2/ Reintubation 1 attempt (Dr Quintero), bronchial washings obtained, plan for tracheostomy next week 11/19-bronchial washings-staph aureus 11/21 CT Chest-traction bronchiectasis, subcutaneous emphysema loculated air right lung base 11/22 CXR-stable pneumomediastinum,Bronchial washings resulted -mold CT surgery consult- for Pneumomediastinum P/F Ratio 84 -General surgery consult for tracheostomy CVS A Flutter with RVR-resolved Fluid overload-resolved HTN -Monitor HR and BP keep MAP>65mmHg. On Cardizem 60mg QID, Metoprolol 25mg BID -Echo revealed EF 45-50%, diffuse hypokinesis, cardiology is following, Dr. Barrera -Troponin negative -Esmolol dc'd 11/14 -Lasix 40 mg x 1 dose- Diuresed 2L GI: Constipation-resolved Abdominal Pain Severe protein calorie malnutrition -Elevated LFT's, check US liver-no acute abnormality .dystrophic calcification right lobe, common bile duct within normal limits - IV Protonix for GI prophylaxis - Will resume TF-Glucerna 1.5 @, change to goal rate 50 L per hour per nutrition recommendations. Patient previously on soft pureed diet with poor intake - NGT tube-reinitiate tube feeds Glucerna 1.5 at 50 cc an hour per perfume compounder recommendation -Cdiff antigen 11/21- negative -11/19 CT- abdomen -no acute findings -Albumin 1.9 FEN/RENAL: Hydronephrosis from urinary retention/obstruction Hypernatremia-resolved -Monitor renal function , I/O's, -Free water flushes to 300 cc discontinued 11/17 BUN elevation may in part be secondary to steroids. -Renal US: Probable complicated cyst midpole left kidney measuring 2.0 cm. No evidence of hydronephrosis. - Lasix 20 mg BID ID: Healthcare associated pneumonia Sepsis Persistent fevers Persistent Leukocytosis - (thromobphlebitis vs steroids vs infectious) WBC 26 -Acetaminophen 650mg for temp greater than 101.0 -Sputum culture11/08 -budding yeast with pseudohyphae -Sputum Culture 11/09-Rare gram negative robin -Blood cultures11/08- NGTD -Abx per ID, Dr. Phan, management of antibiotic regimen (Linezolid, aztreonam, fluconazole). -Cdiff obtained 11/21. Pancultured 11/14, pending Microbiology: 11/05blood culture 2 setsno growth today 11/07blood cultureno growth today 11/08blood culture 2 setsno growth today 11/09pending culturenegative 11/14blood culture 2 sets pending 11/14sputum culturepending 11/14urinalysis without evidence of infection. -US11/12 bilateral upper and lower extremities-superficial nonocclusive thrombus right cephalic vein 11/19-bronchial washings-staph aureus -Cdiff pending -11/20- repeat blood and urine cultures HEME: -Monitor CBC, CMP ENDO: Hypokalemia Hyperglycemia of critical illness -Electrolyte replacement per protocol. Sliding scale insulin if needed -On [place] Thyroid 90mg daily, TSH: 0.123 -Glucose monitoring every 6 hours per ICU protocol -Sliding-scale insulin MSK: Clinical illness polyneuropathy -PT-functional maintenance daily - Multi-Podus boots PROPH: -Bilateral lower extremity SCDs. Subcutaneous heparin 5000 q 8 for DVT prophylaxis. IV Protonix for GI prophylaxis LINES: -Utilize peripheral IVs. No invasive lines. This patient remains critically ill with one or more organ systems which are or may become a threat to life. I have spent in excess of 42 minutes discontinuously in the care and management of this patient. This time is exclusive of procedures, and includes, but is not limited to, evaluation of the patient, review of the medical record, discussions with family, consultants, nursing staff, or respiratory therapy, and documentation in the medical record. Discussed with H[employer] SCIENCE TEACHER at bedside and Dr. Rodríguez() and the decision to proceed with percutaneous tracheostomy . Physician Megha Pastrana MD Nov 22, 2016 11:37
--- NOTE | 2016-11-22 14:10 | HHI.IDPN ---
Note Infectious Disease Note Notes reviewed. Patient on vent. Awake and alert. Attempting to suction herself. Sedated. Had bronchoscopy 11/20/16. Afebrile little secretions. Bronch culture has mold reported. prelim. Aspergillus. Has mediastinal air. Also Sub Q emphysema. WBC still elevated. PAST MEDICAL HISTORY 1. Asthma. 2. Pulmonary fibrosis. 3. Gastroesophageal reflux disease. 4. Hemochromatosis. 5. Acid reflux. 6. Cholecystectomy. 7. Lumbar spine surgery. 8. Cervical spine surgery. 9. Hysterectomy. 10. Left parotid gland surgery. 11. Breast reduction. 12. Tonsillectomy. 13. Anterior cervical fusion of C6-C7. ALLERGIES 1. BETADINE. 2. IODINE. 3. THE PATIENT'S REPORTS SHE GETS UPSET STOMACH WITH CIPROFLOXACIN BUT THAT SHE IS UNABLE TO TOLERATE IV CIPROFLOXACIN. ANTIBIOTICS: Aztreonam. Fluconazole. Zyvox. Micafungin. OBJECTIVE: Vital Signs Date Time Temp Pulse Resp B/P Pulse Ox O2 Delivery O2 Flow Rate FiO2 11/22/16 12:25 94 80 11/22/16 10:40 93 80 11/22/16 08:00 85 11/22/16 08:00 99.3 59 22 147/71 92 11/22/16 08:00 59 11/22/16 06:26 22 11/22/16 04:36 94 90 11/22/16 04:00 98.9 60 22 140/69 96 11/22/16 04:00 90 11/22/16 00:35 93 90 11/22/16 00:00 99.0 60 22 122/61 92 11/22/16 00:00 90 11/21/16 21:45 22 11/21/16 20:38 90 90 11/21/16 20:00 90 11/21/16 20:00 98.4 68 22 130/69 94 11/21/16 20:00 68 11/21/16 18:00 89 11/21/16 16:40 90 11/21/16 16:30 90 90 11/21/16 16:29 88 100 11/21/16 16:00 99.0 76 22 155/77 96 11/21/16 16:00 90 11/21/16 16:00 76 11/21/16 15:30 88 Mechanical Ventilator 90 11/21/16 14:47 90 80 11/21/16 14:43 91 70 11/21/16 11/21/16 11/22/16 15:00 23:00 07:00 Intake Total 867 ml 822 ml 1061 ml Output Total 375 ml 650 ml 500 ml Balance 492 ml 172 ml 561 ml IV Total 480 ml 560 ml 613 ml Tube Feeding 387 ml 202 ml 388 ml Tube Irrigant 60 ml 60 ml Output Urine Total 375 ml 650 ml 500 ml # Bowel Movements 2 1 1 Laboratory Tests Test 11/21/16 04:57 White Blood Count 23.1 TH/MM3 Red Blood Count 3.46 MIL/MM3 Hemoglobin 11.1 GM/DL Hematocrit 34.1 % Mean Corpuscular Volume 98.5 FL Mean Corpuscular Hemoglobin 32.2 PG Mean Corpuscular Hemoglobin 32.7 % Concent Red Cell Distribution Width 14.2 % Platelet Count 204 TH/MM3 Mean Platelet Volume 10.6 FL Neutrophils (%) (Auto) 95.3 % Lymphocytes (%) (Auto) 2.4 % Monocytes (%) (Auto) 1.9 % Eosinophils (%) (Auto) 0.1 % Basophils (%) (Auto) 0.3 % Neutrophils # (Auto) 22.0 TH/MM3 Lymphocytes # (Auto) 0.6 TH/MM3 Monocytes # (Auto) 0.4 TH/MM3 Eosinophils # (Auto) 0.0 TH/MM3 Basophils # (Auto) 0.1 TH/MM3 CBC Comment DIFF FINAL Differential Comment Laboratory Tests Test 11/21/16 11/22/16 04:57 04:13 Sodium Level 146 MEQ/L 147 MEQ/L Potassium Level 3.8 MEQ/L 4.7 MEQ/L Chloride Level 111 MEQ/L 110 MEQ/L Carbon Dioxide Level 27.1 MEQ/L 29.2 MEQ/L Anion Gap 8 MEQ/L 8 MEQ/L Blood Urea Nitrogen 46 MG/DL 48 MG/DL Creatinine 1.24 MG/DL 1.23 MG/DL Estimat Glomerular Filtration 43 ML/MIN 43 ML/MIN Rate Random Glucose 177 MG/DL 234 MG/DL Calcium Level 8.6 MG/DL 8.5 MG/DL Phosphorus Level 2.5 MG/DL Magnesium Level 2.4 MG/DL Total Bilirubin 0.4 MG/DL 0.4 MG/DL Aspartate Amino Transf 23 U/L 42 U/L (AST/SGOT) Alanine Aminotransferase 75 U/L 71 U/L (ALT/SGPT) Alkaline Phosphatase 92 U/L 96 U/L Total Protein 6.1 GM/DL 6.2 GM/DL Albumin 1.9 GM/DL 1.9 GM/DL Microbiology Date/Time Procedure Status Source Growth 11/19/16 18:00 Gram Stain Received Sputum Endotracheal Pending 11/19/16 18:00 Sputum Culture Received Sputum Endotracheal Pending 11/19/16 18:00 Gram Stain - Final Resulted Bronchial Washings Other 11/19/16 18:00 Bronchial Culture - Preliminary Resulted Aspergillus Species 11/20/16 13:36 Aerobic Blood Culture - Preliminary Resulted Blood Peripheral NO GROWTH IN 2 DAYS 11/20/16 13:36 Anaerobic Blood Culture - Preliminary Resulted Blood Peripheral NO GROWTH IN 2 DAYS 11/20/16 13:41 Aerobic Blood Culture - Preliminary Resulted Blood Peripheral NO GROWTH IN 2 DAYS 11/20/16 13:41 Anaerobic Blood Culture - Preliminary Resulted Blood Peripheral NO GROWTH IN 2 DAYS 11/20/16 13:45 Urine Culture - Final Complete Urine Catheterized Urine NO GROWTH IN 48 HOURS. IMAGING: Chest X-Ray 11/22/16 0600 Signed Impressions: Service Date/Time: Tuesday, November 22, 2016 06:00 - CONCLUSION: 1. Stable chest x-ray with bilateral mid and lower lung zone airspace consolidation. 2. Stable pneumomediastinum and chest wall soft tissue air. No pneumothorax is appreciated. Jimmy Lara MD Chest X-Ray 11/21/16 0600 Signed Impressions: Service Date/Time: Monday, November 21, 2016 04:25 - CONCLUSION: 1. Persistent pneumomediastinum. No pneumothorax is identified. 2. Stable bilateral lower lung zone airspace consolidation. 3. New left axillary region soft tissue air from uncertain etiology. Jimmy Lara MD Chest CT 11/21/16 0000 Signed Impressions: Service Date/Time: Monday, November 21, 2016 16:14 - CONCLUSION: 1. Improvement of previous diffuse groundglass opacity. Probable developing fibrotic changes at the bases with some traction bronchiectasis. 2. Extensive air leak with pneumomediastinum and subcutaneous emphysema. There is also some loculated air at the right lung base that is new since the prior examination. This could represent a pneumatocele measuring 4.5 cm. Matt Wolf MD PHYSICAL EXAMINATION GENERAL: No acute distress. HEENT: No icterus. Dry mucosa. NECK: No adenopathy or swelling. Neck collar in place. LUNGS: Bilateral rhonchi. HEART: Regular S1 and S2. No audible murmurs. ABDOMEN: Decreased bowel sounds, soft. non tender. EXTREMITIES: No edema. Pulses 2+ radial and dorsalis pedis. SKIN: No rash. NEUROLOGIC: non focal. PSYCHIATRIC: Alert and responsive. IMPRESSION 1. Fever, questionable etiology. Temp improved initially after stopping beta lactam abx. ? Pneumonia. Staph in sputum culture. 2. Acute respiratory failure. Extubated. Reintubated. 3. Leukocytosis. ? due to PNA. WBC still elevated. Also has superficial distal r. cephalic vein thrombus. Also on Solumedrol. However still has abnormal CXR. ? result of pulmonary fibrosis. 4. Sepsis on admission indicated by elevated heart rate, elevated temperature, elevated white blood cell count. Source unclear but likely pulmonary. 5. Abnormal chest x-ray with bilateral interstitial infiltrates suggesting possible pneumonia versus COPD or fibrosis. Bronch culture has mold and Staph species. The mold may be aspergillus. RECOMMENDATIONS 1. Continue Aztreonam for gram negative pulmonary coverage. 2. Continue Micafungin. 3. Add Voriconazole. 4. Continue Zyvox IV. Welbutrim on hold because of Zyvox interaction. 5. Monitor white blood cell count and temp. 6. Monitor clinical status. D/W . Roberto Phan MD Nov 22, 2016 14:10
[2016-11-22] MEDS: PANTOPRAZOLE SODIUM 40 MG VIAL IV PUSH SCH (15:12)
[2016-11-22] MEDS: ESTRADIOL 0.1 MG/24 HR PATCH TD SCH (15:29)
[2016-11-22] MEDS: VORICONAZOLE IV SCH (16:23)
[2016-11-22] MEDS: SODIUM CHLORIDE 0.9% IV SCH (16:23)
--- NOTE | 2016-11-22 16:27 | HHI.PR ---
Subjective Remarks 71 YO WF with VDRF,PF,COPD Had worsening of oxygenation CT chest showes Pneumomedistinum Pt awake, follows commands Fi02 weaned to 80% Objective Vital Signs Vital Signs Date Time Temp Pulse Resp B/P Pulse Ox O2 Delivery O2 Flow Rate FiO2 11/22/16 14:00 83 11/22/16 12:25 94 80 11/22/16 12:00 61 11/22/16 12:00 80 11/22/16 12:00 98.3 61 25 159/80 90 11/22/16 10:40 93 80 11/22/16 10:00 57 11/22/16 09:45 80 11/22/16 08:00 85 11/22/16 08:00 99.3 59 22 147/71 92 11/22/16 08:00 59 11/22/16 06:26 22 11/22/16 04:36 94 90 11/22/16 04:00 98.9 60 22 140/69 96 11/22/16 04:00 90 11/22/16 00:35 93 90 11/22/16 00:00 99.0 60 22 122/61 92 11/22/16 00:00 90 11/21/16 21:45 22 11/21/16 20:38 90 90 11/21/16 20:00 90 11/21/16 20:00 98.4 68 22 130/69 94 11/21/16 20:00 68 11/21/16 18:00 89 11/21/16 16:40 90 11/21/16 16:30 90 90 11/21/16 16:29 88 100 I/O 11/21/16 11/21/16 11/21/16 11/22/16 11/22/16 11/22/16 07:00 15:00 23:00 07:00 15:00 23:00 Intake Total 1300 ml 867 ml 822 ml 1061 ml 654 ml Output Total 500 ml 375 ml 650 ml 500 ml 375 ml Balance 800 ml 492 ml 172 ml 561 ml 279 ml Intake Oral 0 ml IV Total 720 ml 480 ml 560 ml 613 ml 292 ml Tube Feeding 370 ml 387 ml 202 ml 388 ml 362 ml Tube Irrigant 210 ml 60 ml 60 ml Output Urine Total 500 ml 375 ml 650 ml 500 ml 375 ml # Bowel Movements 0 2 1 1 1 Result Diagram: 11/21/16 0457 11/22/16 0413 Objective Remarks GENERAL: MBMN Wf, on Vent SKIN: Warm and dry. HEAD: Normocephalic. EYES: No scleral icterus. No injection or drainage. NECK: Supple, trachea midline. No JVD or lymphadenopathy. CARDIOVASCULAR: Regular rate and rhythm without murmurs, gallops, or rubs. RESPIRATORY: Breath sounds equal bilaterally. No accessory muscle use. GASTROINTESTINAL: Abdomen soft, non-tender, nondistended. MUSCULOSKELETAL: No cyanosis, or edema. BACK: Nontender without obvious deformity. No CVA tenderness. A/P Assessment and Plan VDRF Hypoxia Bilat interstitial lung infilt Pneumomediastinum PF PLAN: Vent Support PEEP 5 Aerosol nebs Cont IV Solumedrol Cont Abx DW Fi02 80%, wean to keep sat >90% Umer Person MD Nov 22, 2016 16:27
[2016-11-22] MEDS: LABETALOL HCL 100 MG/20 ML VIAL IV PUSH PRN (16:28)
[2016-11-22] MEDS: fentaNYL 2,500 MCG/NS 250 ML IV SCH (17:37)
[2016-11-22] MEDS: ALPRAZolam 0.5 MG TAB PO PRN (20:47)
[2016-11-22] MEDS: MONTELUKAST SODIUM 10 MG TAB PO SCH (20:47)
[2016-11-22] MEDS: MICAFUNGIN INJ 100 MG in SODIUM CHLORIDE 0.9% INJ 100 ML IV SCH (20:47)
[2016-11-23] VITALS (20 sets, daily range): BP systolic 105–176; BP diastolic 56–81; PULSE 68–101; RESP 20–32; TEMP 98.1–100; O2SAT 8–95
[2016-11-23] MEDS: AZTREONAM INJ 1,000 MG in SODIUM CHLORIDE 0.9% INJ 100 ML IV SCH ×4 (00:15→23:34)
[2016-11-23] MEDS: DILTIAZEM HCL 60 MG TAB PO SCH ×5 (00:16→23:33)
[2016-11-23] MEDS: LINEZOLID 600 MG PREMIX 300 ML IV SCH ×2 (02:20→13:25)
[2016-11-23] MEDS: RESP: ALBUTEROL 2.5 MG/IPRATROPIUM 0.5 MG NEB (SCH) NEB ×4 (04:02→20:39)
[2016-11-23] MEDS: HEPARIN SODIUM - SQ 10,000 UNITS/ML VIAL SQ SCH ×3 (05:43→21:01)
[2016-11-23] MEDS: VORICONAZOLE IV SCH ×2 (05:43→15:01)
[2016-11-23] MEDS: SODIUM CHLORIDE 0.9% IV SCH ×2 (05:43→15:01)
[2016-11-23] MEDS: methylPREDNISolone SOD SUCC 40 MG/1 ML VIAL IV SCH ×3 (05:44→21:01)
[2016-11-23] MEDS: THYROID 30 MG TAB PO SCH (05:44)
[2016-11-23] MEDS: HIGH DOSE INSULIN NOVOLOG SUPPLEMENTAL SCALE SQ SCH ×5 (06:24→23:35)
[2016-11-23] MEDS: POLYETHYLENE GLYCOL 17 GM PKG PO SCH ×2 (07:23→20:58)
[2016-11-23] MEDS: LEVOCETIRIZINE 5 MG PO SCH (07:23)
[2016-11-23] MEDS: DOCUSATE SODIUM 100 MG CAP PO SCH ×2 (07:23→20:56)
[2016-11-23] MEDS: RESP: BUDESONIDE 0.5 MG/2 ML NEB NEB SCH ×2 (07:33→20:39)
[2016-11-23] MEDS: CHLORHEXIDINE 0.12% (ORAL KIT) 15 ML CUP MT SCH ×2 (07:58→20:59)
[2016-11-23] MEDS: METOPROLOL TARTRATE 25 MG TAB PO SCH ×2 (07:59→20:56)
[2016-11-23] MEDS: SODIUM CHLORIDE 0.9% FLUSH 5 ML FLUSH FLUSH SCH ×2 (07:59→20:58)
[2016-11-23] MEDS: FUROSEMIDE 40 MG/5 ML UNIT DOSE CUP TUBE SCH ×2 (07:59→17:37)
[2016-11-23] MEDS: TIOTROPIUM BROMIDE 18 MCG INH INH SCH (07:59)
[2016-11-23] MEDS: LABETALOL HCL 100 MG/20 ML VIAL IV PUSH PRN ×2 (07:59→13:41)
[2016-11-23] MEDS: CETIRIZINE HCL SYRUP 10 MG/10 ML UDC TUBE SCH (07:59)
--- NOTE | 2016-11-23 08:15 | RADRPT ---
EXAM DATE/TIME: 11/23/2016 07:56 [facility] COMPARISON: CHEST SINGLE AP, November 22, 2016, 6:00. INDICATIONS : Shortness of breath. MEDICAL HISTORY : Hypertension. Chronic obstructive pulmonary disease. SURGICAL HISTORY : None. ENCOUNTER: Subsequent ACUITY: 2 weeks PAIN SCORE: Non-responsive. LOCATION: Bilateral chest FINDINGS: A single view of the chest demonstrates persistent bibasilar areas of consolidation/effusion which ac tually do show some interval improvement. Lungs are hyperinflated without pneumothorax. Air previousl y identified in the region of the mediastinum is definitely improved and the emphysematous changes in the soft tissues over the left chest have also improved. Heart size remains normal. Endotracheal tub e is appropriately positioned above the dhara the nasogastric tube entering the stomach. Multilevel anterior fixation of the cervical spine. CONCLUSION: 1. Overall improvement in the radiographic appearance of the chest. Persistent bibasilar areas of ate lectasis/effusion are identified the airway appears to be better aerated when compared to prior. 2. Similarly, decreasing air in the mediastinum and soft tissues of the left chest. 3. Hyperinflation with no pneumothorax. Stable position of life support tubes. Cal Davis MD on November 23, 2016 at 8:10 Board Certified Radiologist. This report was verified electronically.
--- NOTE | 2016-11-23 08:40 | HHI.CCPN ---
Subjective Remarks/Hospital Course Patient is a 71-year-old female with history of pulmonary fibrosis, asthma, probable COPD on home oxygen who had a recent fall at home and sustained C7/ T1 fractures. She was evaluated by neurosurgery and conservatively managed and placed in a cervical collar. She was discharged home on 11/04/16. The pt developed inability to ambulate at home and also had urinary retention. Patient 's also noticed that she had been more confused. ER workup included a CT of the head which was negative, CT of the abdomen pelvis showed markedly distended bladder with mild to moderate hydronephrosis. Sanders catheter was inserted. Chest x-ray showed increasing bilateral infiltrates. Patient was admitted to the hospitalist service, on broad-spectrum antibiotics with Zosyn and vancomycin, breathing treatments. Neurology Dr. Xiong was also consulted Today was noted to have increasing shortness of breath today, tachypnea and hypoxia requiring a partial nonrebreather. Also noted to have A flutter with rapid ventricular response. Cardizem boluses 2 was given on Cardizem infusion was started. Because of her worsening respiratory failure patient was moved to the ICU. Critical care medicine consulted and I immediately evaluated the patient. She is in moderate distress on partial nonrebreather breathing 35-40/ m. Chest exam shows bilateral crackles and wheezes. I have added Solu-Medrol and scheduled breathing treatments and ordered BiPAP 10 over 5. I explained to the patient and the that patient may need endotracheal intubation and mechanical ventilation if she is not improving with BiPAP. 11/07 Patient is sedated with Diprivan and intubated. Afebrile. On Cardizem drip 5mg/hr, for MRI spine and CT thorax today. 11/08 Patient is sedated with Fentnayl and intubated. Afebrile. Renal function worse today with Cr: 1.65 from 1.15 11/09 Tmax 102.2. The patient's sputum culture grew preliminarily budding yeast with pseudohyphae. Diflucan initiated yesterday white count trending down. Lasix discontinued yesterday secondary to elevated creatinine level. 11/10 Afebrile. Able to wean oxygenation to FiO2 of 40% today. CPAP trials plan for today. The patient was noted to be hypernatremic free water flushes were added to her tube feedings. Creatinine slightly improved today. PT consulted Functional maintenance with specific requirements to be referred to neurosurgery for restrictions of any type of activities regarding functional maintenance. 11/11 Tmax 101.7. Patient continues to have persistent fevers, on antibiotic therapy, ID consulted,Dr Phan, appreciate recommendations. The patient has elevations in heart rate with activity/movement, received 2 doses of metoprolol with some diminution, from 160 to 90's yesterday. Overnight the patient's heart rate remained in the 120's. CPAP trials were initiated yesterday the patient was able to maintain the trial for approximately 4 hours. 11/12 Persistent fever last 24 hours, patient placed on a cooling blanket. Antibiotics adjusted per ID, Dr. Phan. Ultrasound Doppler obtained bilateral upper and lower extremities results superficial thrombus white distal cephalic vein. The patient was maintained on CPAP approximately 9 hours yesterday. Fentanyl infusion resumed today, patient complained of pain. Scheduled by mouth narcotics initiated. 11/13 CPAP trials lasted 11 hours. Patient continues to have fevers on a cooling blanket, Dr. Phan managing antibiotic regimen. Patient can continuously complain of pain, scheduled pain meds multimodal therapy approach initiated. 11/14 Was on CPAP 10/8 FiO2 55% for several hours and then terminated due to desaturation. WBC up to 22.9 without fever. No significant respiratory secretions. Had diarrhea yesterday but now RN reports no BM today after holding bowel regimen. Abdomen benign and tolerating tube feeds. Check for C diff if has a loose stool. Panculture sent. updated at bedside. Has no invasive lines. Subjective: 11/15 Diuresed net negative 1 L last shift following lasix. Creatinine downtrend to 1.19. Sodium down to 150. Received 6 am dose of Lasix. FiO2 weaned to 45%. WBC down 17. Afebrile. Placed on CPAP 5/5 and TV 550 and RSBI 30s. Sats 89-92% on 50%. 11/16 Tmax in 100.1. The patient continues today on CPAP trial PaO2 65 on FiO2 of 55%. The patient has been diuresed over the last several days, sodium is down trending now 145 tube feeds are off, will plan for a trial of extubation. As discussed with the Dr. Rodríguez that the patient possibly will need tracheostomy. Dr. Aguilera consulted for possible tracheostomy. 11/17 Afebrile. The patient was extubated yesterday afternoon .The patient tolerated BiPAP overnight, maintaining O2 sat 9294%, on FiO2 of 50%. Plan to transition to high flow nasal cannula if tolerated. 11/18 The patient tolerated-flow nasal cannula for the last 24 hours. Attempts at weaning FiO2 less than 65% unsuccessful at this point. O2 sat 8892%. Patient unable to perform incentive spirometry at this time. 11/19 The patient had respiratory decompensation this afternoon, requiring emergent intubation. The patient also underwent fiberoptic bronchoscopy which was unremarkable, and obtained BAL specimens as she continues to have fevers. 11/20 Tmax 100.0. The patient required emergent intubation yesterday afternoon secondary to hypoxemic/hypercapnic respiratory failure. A BAL was performed to obtain specimens secondary to elevation in white count. BAL revealed staph aureus. The process of weaning FiO2 is currently underway, FiO2 currently 65%. The patient complained of abdominal pain last evening, CT scan obtained. 11/21 This afternoon patient experiencing increased O2 requirements to maintain a PaO2 of 60. Chest x-ray reviewed noting possible pneumomediastinum. PEEP 5, stat CT chest pending. CT of the abdomen benign, patient tolerating tube feeds.Pt transported to CT scanner PEEP 8 required for adequate oxygenation. Returned from CT scanner, returned to PEEP of 5, FIO2 90%. 11/22 The patient was maintained on an FiO2 of 90% overnight, O2 sats remained 92 94%. This a.m. FiO2 was decreased to 85%, P/F Ratio 84. Repeat chest x-ray revealed stable pneumomediastinum CT surgery was consulted yesterday, appreciate recommendations. Bronchial washings resulted in mold, and moderate staph aureus growth. 11/23 Tmax 99.9. Bronchial washings, preliminary diagnosis Aspergillus. The patient was started on voriconazole. Repeat chest x-ray resulting decreasing air in mediastinum and less emphysematous changes and left chest. The patient continues on PRBC ventilator mode, FiO2 80% all night, unable to wean. Objective Vital Signs Date Time Temp Pulse Resp B/P Pulse Ox O2 Delivery O2 Flow Rate FiO2 11/23/16 07:35 91 80 11/23/16 06:00 90 11/23/16 04:00 99.3 26 167/81 11/21/16 15:30 Mechanical Ventilator 11/19/16 09:20 30.00 Intake and Output 11/22/16 11/22/16 11/23/16 08:00 16:00 00:00 Intake Total 1061 ml 654 ml 921 ml Output Total 500 ml 375 ml 600 ml Balance 561 ml 279 ml 321 ml Result Diagram: 11/21/16 0457 11/22/16 0413 Other Results Microbiology Date/Time Procedure Status Source Growth 11/20/16 13:45 Urine Culture - Final Complete Urine Catheterized Urine NO GROWTH IN 48 HOURS. Laboratory Tests Test 11/22/16 09:44 Blood Gas Puncture Site RT RADIAL Blood Gas Patient Temperature 98.6 Blood Gas HCO3 28 mmol/L (22-26) Blood Gas Base Excess 4.1 mmol/L (-2-2) Blood Gas Oxygen Saturation 92 % (90-100) Arterial Blood pH 7.41 (7.380-7.420) Arterial Blood Partial 45 mmHg (38-42) Pressure CO2 Arterial Blood Partial 76 mmHg Pressure O2 (61-120) Arterial Blood Oxygen Content 14.1 Vol % (12.0-20.0) Arterial Blood 0.9 % (0-4) Carboxyhemoglobin Arterial Blood Methemoglobin 1.0 % (0-2) Blood Gas Hemoglobin 10.8 G/DL (12.0-16.0) Oxygen Delivery Device VENTILATOR Blood Gas Ventilator Setting 22/+5/1.0/IP32 Blood Gas Inspired Oxygen 85 % Imaging Last Impressions Chest X-Ray 11/22/16 0600 Signed Impressions: Service Date/Time: Tuesday, November 22, 2016 06:00 - CONCLUSION: 1. Stable chest x-ray with bilateral mid and lower lung zone airspace consolidation. 2. Stable pneumomediastinum and chest wall soft tissue air. No pneumothorax is appreciated. Jimmy Lara MD Chest CT 11/21/16 0000 Signed Impressions: Service Date/Time: Monday, November 21, 2016 16:14 - CONCLUSION: 1. Improvement of previous diffuse groundglass opacity. Probable developing fibrotic changes at the bases with some traction bronchiectasis. 2. Extensive air leak with pneumomediastinum and subcutaneous emphysema. There is also some loculated air at the right lung base that is new since the prior examination. This could represent a pneumatocele measuring 4.5 cm. Matt Wolf MD Abdomen X-Ray 11/19/16 0000 Signed Impressions: Service Date/Time: November 22:26 - CONCLUSION: Nasogastric tube has its tip near the gastric outlet. Nonobstructive bowel gas pattern. Jimmy Hoffmann MD Abdomen CT 11/19/16 0000 Signed Impressions: Service Date/Time: Sunday, November 20, 2016 04:24 - CONCLUSION: 1. No acute finding is identified within the abdomen on this noncontrast examination. 2. There is severe airspace consolidation/groundglass attenuation in both lung bases. Pneumomediastinum is present and there is a small right pneumothorax. Jimmy Lara MD Upper Extremity Ultrasound 11/11/16 0000 Signed Impressions: Service Date/Time: Friday, November 11, 2016 21:51 - CONCLUSION: 1. No evidence of DVT. 2. Focal superficial thrombosis involving the distal right cephalic vein. Roland Maier MD Lower Extremity Ultrasound 11/11/16 0000 Signed Impressions: Service Date/Time: Friday, November 11, 2016 21:22 - CONCLUSION: Negative exam with no evidence of deep venous thrombosis. Rex Corcoran MD Liver Ultrasound 11/09/16 0000 Signed Impressions: Service Date/Time: Wednesday, November 09, 2016 08:03 - CONCLUSION: 1. No acute abnormality. 2. Prior cholecystectomy. Common bile duct is within the normal range in terms of size for patient status post cholecystectomy. 3. Dystrophic calcification involving the right lobe of the liver. Scott Mittal Jr., MD Thoracic Spine MRI 11/07/16 0000 Signed Impressions: Service Date/Time: Monday, November 07, 2016 10:23 - CONCLUSION: 1. There is a fracture of the T1 vertebral body and T5 vertebral body. No significant height loss is present and there is no retropulsion of any fracture fragment. No canal stenosis is present. 2. Please refer to today's chest CT examination report for description of the pulmonary findings. Jimmy Lara MD Renal Ultrasound 11/06/16 0000 Signed Impressions: Service Date/Time: Sunday, November 06, 2016 22:24 - CONCLUSION: Probable complicated cyst midpole left kidney measuring 2.0 cm. Otherwise negative exam. No evidence of hydronephrosis. Scott Cantor MD Head CT 11/04/16 4266 Signed Impressions: Service Date/Time: Friday, November 04, 2016 23:45 - CONCLUSION: No acute intracranial findings. Jimmy Felton MD Abdomen/Pelvis CT 11/04/16 0000 Signed Impressions: Service Date/Time: Friday, November 04, 2016 23:48 - CONCLUSION: Markedly dilated urinary bladder with mild-moderate bilateral hydronephrosis Jimmy Felton MD Last Impressions Chest X-Ray 11/15/16 0000 Signed Impressions: Service Date/Time: Tuesday, November 15, 2016 11:02 - CONCLUSION: No significant interval change. Roland Maier MD Upper Extremity Ultrasound 11/11/16 0000 Signed Impressions: Service Date/Time: Friday, November 11, 2016 21:51 - CONCLUSION: 1. No evidence of DVT. 2. Focal superficial thrombosis involving the distal right cephalic vein. Roladn Maier MD Lower Extremity Ultrasound 11/11/16 0000 Signed Impressions: Service Date/Time: Friday, November 11, 2016 21:22 - CONCLUSION: Negative exam with no evidence of deep venous thrombosis. Rex Corcoran MD Liver Ultrasound 11/09/16 0000 Signed Impressions: Service Date/Time: Wednesday, November 09, 2016 08:03 - CONCLUSION: 1. No acute abnormality. 2. Prior cholecystectomy. Common bile duct is within the normal range in terms of size for patient status post cholecystectomy. 3. Dystrophic calcification involving the right lobe of the liver. Scott Mittal Jr., MD Thoracic Spine MRI 11/07/16 0000 Signed Impressions: Service Date/Time: Monday, November 07, 2016 10:23 - CONCLUSION: 1. There is a fracture of the T1 vertebral body and T5 vertebral body. No significant height loss is present and there is no retropulsion of any fracture fragment. No canal stenosis is present. 2. Please refer to today's chest CT examination report for description of the pulmonary findings. Jimmy Lara MD Renal Ultrasound 11/06/16 0000 Signed Impressions: Service Date/Time: Sunday, November 06, 2016 22:24 - CONCLUSION: Probable complicated cyst midpole left kidney measuring 2.0 cm. Otherwise negative exam. No evidence of hydronephrosis. Scott Cantor MD Chest CT 11/06/16 0000 Signed Impressions: Service Date/Time: Monday, November 07, 2016 10:50 - CONCLUSION: Severe diffuse geographic areas of groundglass attenuation bilaterally with trace bilateral pleural effusions. The pattern is nonspecific but can be seen with infection and ARDS among other etiologies. Jimmy Lara MD Head CT 11/04/16 2326 Signed Impressions: Service Date/Time: Friday, November 04, 2016 23:45 - CONCLUSION: No acute intracranial findings. Jimmy Felton MD Abdomen/Pelvis CT 11/04/16 0000 Signed Impressions: Service Date/Time: Friday, November 04, 2016 23:48 - CONCLUSION: Markedly dilated urinary bladder with mild-moderate bilateral hydronephrosis Jimmy Felton MD Last Impressions Chest X-Ray 11/12/16 0600 Signed Impressions: Service Date/Time: October 02:40 - CONCLUSION: No significant interval change. Roland Maier MD Upper Extremity Ultrasound 11/11/16 0000 Signed Impressions: Service Date/Time: Friday, November 11, 2016 21:51 - CONCLUSION: 1. No evidence of DVT. 2. Focal superficial thrombosis involving the distal right cephalic vein. Roland Maier MD Lower Extremity Ultrasound 11/11/16 0000 Signed Impressions: Service Date/Time: Friday, November 11, 2016 21:22 - CONCLUSION: Negative exam with no evidence of deep venous thrombosis. Rex Corcoran MD Liver Ultrasound 11/09/16 0000 Signed Impressions: Service Date/Time: Wednesday, November 09, 2016 08:03 - CONCLUSION: 1. No acute abnormality. 2. Prior cholecystectomy. Common bile duct is within the normal range in terms of size for patient status post cholecystectomy. 3. Dystrophic calcification involving the right lobe of the liver. Scott Mittal Jr., MD Thoracic Spine MRI 11/07/16 0000 Signed Impressions: Service Date/Time: Monday, November 07, 2016 10:23 - CONCLUSION: 1. There is a fracture of the T1 vertebral body and T5 vertebral body. No significant height loss is present and there is no retropulsion of any fracture fragment. No canal stenosis is present. 2. Please refer to today's chest CT examination report for description of the pulmonary findings. Jimmy Lara MD Renal Ultrasound 11/06/16 0000 Signed Impressions: Service Date/Time: Sunday, November 06, 2016 22:24 - CONCLUSION: Probable complicated cyst midpole left kidney measuring 2.0 cm. Otherwise negative exam. No evidence of hydronephrosis. Scott Cantor MD Chest CT 11/06/16 0000 Signed Impressions: Service Date/Time: Monday, November 07, 2016 10:50 - CONCLUSION: Severe diffuse geographic areas of groundglass attenuation bilaterally with trace bilateral pleural effusions. The pattern is nonspecific but can be seen with infection and ARDS among other etiologies. Jimmy Lara MD Head CT 11/04/16 2326 Signed Impressions: Service Date/Time: Friday, November 04, 2016 23:45 - CONCLUSION: No acute intracranial findings. Jimmy Felton MD Abdomen/Pelvis CT 11/04/16 0000 Signed Impressions: Service Date/Time: Friday, November 04, 2016 23:48 - CONCLUSION: Markedly dilated urinary bladder with mild-moderate bilateral hydronephrosis Jimmy Felton MD Last Impressions Chest X-Ray 11/12/16 0600 Signed Impressions: Service Date/Time: October 02:40 - CONCLUSION: No significant interval change. Roland Maier MD Upper Extremity Ultrasound 11/11/16 0000 Signed Impressions: Service Date/Time: Friday, November 11, 2016 21:51 - CONCLUSION: 1. No evidence of DVT. 2. Focal superficial thrombosis involving the distal right cephalic vein. Roland Maier MD Lower Extremity Ultrasound 11/11/16 0000 Signed Impressions: Service Date/Time: Friday, November 11, 2016 21:22 - CONCLUSION: Negative exam with no evidence of deep venous thrombosis. Rex Corcoran MD Liver Ultrasound 11/09/16 0000 Signed Impressions: Service Date/Time: Wednesday, November 09, 2016 08:03 - CONCLUSION: 1. No acute abnormality. 2. Prior cholecystectomy. Common bile duct is within the normal range in terms of size for patient status post cholecystectomy. 3. Dystrophic calcification involving the right lobe of the liver. Scott Mittal Jr., MD Thoracic Spine MRI 11/07/16 0000 Signed Impressions: Service Date/Time: Monday, November 07, 2016 10:23 - CONCLUSION: 1. There is a fracture of the T1 vertebral body and T5 vertebral body. No significant height loss is present and there is no retropulsion of any fracture fragment. No canal stenosis is present. 2. Please refer to today's chest CT examination report for description of the pulmonary findings. Jimmy Lara MD Renal Ultrasound 11/06/16 0000 Signed Impressions: Service Date/Time: Sunday, November 06, 2016 22:24 - CONCLUSION: Probable complicated cyst midpole left kidney measuring 2.0 cm. Otherwise negative exam. No evidence of hydronephrosis. Scott Cantor MD Chest CT 11/06/16 0000 Signed Impressions: Service Date/Time: Monday, November 07, 2016 10:50 - CONCLUSION: Severe diffuse geographic areas of groundglass attenuation bilaterally with trace bilateral pleural effusions. The pattern is nonspecific but can be seen with infection and ARDS among other etiologies. Jimmy Lara MD Head CT 11/04/16 2326 Signed Impressions: Service Date/Time: Friday, November 04, 2016 23:45 - CONCLUSION: No acute intracranial findings. Jimmy Felton MD Abdomen/Pelvis CT 11/04/16 0000 Signed Impressions: Service Date/Time: Friday, November 04, 2016 23:48 - CONCLUSION: Markedly dilated urinary bladder with mild-moderate bilateral hydronephrosis Jimmy Felton MD Last Impressions Liver Ultrasound 11/09/16 0000 Signed Impressions: Service Date/Time: Wednesday, November 09, 2016 08:03 - CONCLUSION: 1. No acute abnormality. 2. Prior cholecystectomy. Common bile duct is within the normal range in terms of size for patient status post cholecystectomy. 3. Dystrophic calcification involving the right lobe of the liver. Scott Mittal Jr., MD Chest X-Ray 11/09/16 0000 Signed Impressions: Service Date/Time: Wednesday, November 09, 2016 03:36 - CONCLUSION: Mild improvement in the bilateral interstitial infiltrates. Roland Maier MD Thoracic Spine MRI 11/07/16 0000 Signed Impressions: Service Date/Time: Monday, November 07, 2016 10:23 - CONCLUSION: 1. There is a fracture of the T1 vertebral body and T5 vertebral body. No significant height loss is present and there is no retropulsion of any fracture fragment. No canal stenosis is present. 2. Please refer to today's chest CT examination report for description of the pulmonary findings. Jimmy Lara MD Renal Ultrasound 11/06/16 0000 Signed Impressions: Service Date/Time: Sunday, November 06, 2016 22:24 - CONCLUSION: Probable complicated cyst midpole left kidney measuring 2.0 cm. Otherwise negative exam. No evidence of hydronephrosis. Scott Cantor MD Chest CT 11/06/16 0000 Signed Impressions: Service Date/Time: Monday, November 07, 2016 10:50 - CONCLUSION: Severe diffuse geographic areas of groundglass attenuation bilaterally with trace bilateral pleural effusions. The pattern is nonspecific but can be seen with infection and ARDS among other etiologies. Jimmy Lara MD Head CT 11/04/16 2326 Signed Impressions: Service Date/Time: Friday, November 04, 2016 23:45 - CONCLUSION: No acute intracranial findings. Jimmy Felton MD Abdomen/Pelvis CT 11/04/16 0000 Signed Impressions: Service Date/Time: Friday, November 04, 2016 23:48 - CONCLUSION: Markedly dilated urinary bladder with mild-moderate bilateral hydronephrosis Jimmy Felton MD Last Impressions Chest X-Ray 11/07/16 0600 Signed Impressions: Service Date/Time: Monday, November 07, 2016 05:03 - CONCLUSION: Persistent and stable bilateral air space opacities in the medial lungs. Scott Cantor MD Thoracic Spine MRI 11/07/16 0000 Signed Impressions: Service Date/Time: Monday, November 07, 2016 10:23 - CONCLUSION: 1. There is a fracture of the T1 vertebral body and T5 vertebral body. No significant height loss is present and there is no retropulsion of any fracture fragment. No canal stenosis is present. 2. Please refer to today's chest CT examination report for description of the pulmonary findings. Jimmy Lara MD Renal Ultrasound 11/06/16 0000 Signed Impressions: Service Date/Time: Sunday, November 06, 2016 22:24 - CONCLUSION: Probable complicated cyst midpole left kidney measuring 2.0 cm. Otherwise negative exam. No evidence of hydronephrosis. Scott Cantor MD Chest CT 11/06/16 0000 Signed Impressions: Service Date/Time: Monday, November 07, 2016 10:50 - CONCLUSION: Severe diffuse geographic areas of groundglass attenuation bilaterally with trace bilateral pleural effusions. The pattern is nonspecific but can be seen with infection and ARDS among other etiologies. Jimmy Lara MD Head CT 11/04/16 2326 Signed Impressions: Service Date/Time: Friday, November 04, 2016 23:45 - CONCLUSION: No acute intracranial findings. Jimmy Felton MD Abdomen/Pelvis CT 11/04/16 0000 Signed Impressions: Service Date/Time: Friday, November 04, 2016 23:48 - CONCLUSION: Markedly dilated urinary bladder with mild-moderate bilateral hydronephrosis Jimmy Felton MD Objective Remarks GENERAL: Patient is 71 yo female, critically ill appearing responsive, currently on fentanyl infusion on 100 mcgs SKIN: Warm and dry. Multiple ecchymotic bruises HEAD: Normocephalic. EYES: No scleral icterus. No injection or drainage. NECK: Supple, trachea midline. No JVD or lymphadenopathy. [place] J C-collar in place .Orotracheal intubated. CARDIOVASCULAR: Regular rate and rhythm without murmurs, gallops, or rubs. RESPIRATORY: Breath sounds equal bilaterally , coarse breath sounds. Mechanical ventilation GASTROINTESTINAL: Abdomen soft, non-tender, nondistended. NG tube in situ MUSCULOSKELETAL: No cyanosis, 1-2+ edema, all extremities. NEURO: GCS 11T, RASS -1, following commands. Urinary Catheter: Yes Vascular Central Line Catheter: No A/P Assessment and Plan NEURO: Acute metabolic encephalopathy, improved C7-T1 fracture (T1 vertebral body comminuted fracture, bilateral C7 pedicle fracture extending to the right facet. Remote history of anterior C6-C7 and C4-C5 fusion with plate placement. Pain H/O Chronic pain syndrome Pain control -multimodal pain therapy-Roxicodone scheduled every 6 hours, will initiate fentanyl patch 25 mcgs, wean off fentanyl infusion. -GCS 11T currently on fentanyl infusion, patient's normal VAS scale for chronic pain at home is 7/10. Patient has related pain control better with Roxicodone and tramadol, rated 4/10 -CT head negative for acute findings. - 11/07 MRI spine: Fracture of the T1 vertebral body and T5 vertebral body. - Xanax 0.5 bid PRN RESP: Acute hypoxemic / hypercapneic respiratory failure Pulmonary fibrosis/COPD exacerbation History of asthma Probable HCAP Pneumomediastinum Severe ARDS -Glidescope intubation 1 attempt 1/20 (Dr. Marquez) -Bronchodilators scheduled -Continue Solumedrol 20 mg IV every [address] Escalera, Pulmonary following -home med on hold: Spiriva 18 mcg inhaled daily<Singulair 10 po hs Budesonide 0.5 neb q12. - Pulmonary is following-Dr. Escalera -CT chest showed diffuse GGO b/l -Sputum culture11/08 -budding yeast with pseudohyphae -Sputum Culture 11/09-Rare gram negative rods -Discussed with , holding off on initiation of Xolair at this time due to concern for infection. -Extubated 11/16, placed on BiPAP 01/06 11/19 Reintubation 1 attempt (Dr Quintero), bronchial washings obtained, plan for tracheostomy next week 11/19-bronchial washings-staph aureus 11/21 CT Chest-traction bronchiectasis, subcutaneous emphysema loculated air right lung base 11/22 CXR-stable pneumomediastinum,Bronchial washings resulted -preliminary, Aspergillus CT surgery consult- for Pneumomediastinum P/F Ratio 84 -General surgery consult for tracheostomy -CXR-Decreasing air and pneumomediastinum CVS A Flutter with RVR-resolved Fluid overload-resolved HTN -Monitor HR and BP keep MAP>65mmHg. On Cardizem 60mg QID, Metoprolol 25mg BID -Echo revealed EF 45-50%, diffuse hypokinesis, cardiology is following, Dr. Barrera -Troponin negative -Esmolol dc'd 11/14 GI: Constipation-resolved Abdominal Pain Severe protein calorie malnutrition -Elevated LFT's, check US liver-no acute abnormality .dystrophic calcification right lobe, common bile duct within normal limits - IV Protonix for GI prophylaxis - TF-Glucerna 1.5 @ 50cc/hr (goal) - NGT tube-reinitiate tube feeds Glucerna 1.5 at 50 cc an hour per sueding and buffing machine operator recommendation -Cdiff antigen 11/21- negative -11/19 CT- abdomen -no acute findings -Albumin 1.9 FEN/RENAL: Hydronephrosis from urinary retention/obstruction Hypernatremia-resolved -Monitor renal function , I/O's, -Free water flushes to 300 cc discontinued 11/17 BUN elevation may in part be secondary to steroids. -Renal US: Probable complicated cyst midpole left kidney measuring 2.0 cm. No evidence of hydronephrosis. - Lasix 20 mg BID ID: Healthcare associated pneumonia Sepsis Persistent fevers Persistent Leukocytosis -Acetaminophen 650mg for temp greater than 101.0 -Sputum culture11/08 -budding yeast with pseudohyphae -Sputum Culture 11/09-Rare gram negative robin -Blood cultures11/08- NGTD -Abx per ID, Dr. Phan, management of antibiotic regimen (Linezolid, aztreonam, fluconazole). -Cdiff obtained 11/21. Pancultured 11/14, pending Microbiology: 11/05blood culture 2 setsno growth today 11/07blood cultureno growth today 11/08blood culture 2 setsno growth today 11/09pending culturenegative 11/14blood culture 2 sets pending 11/14sputum culturepending 11/14urinalysis without evidence of infection. -US11/12 bilateral upper and lower extremities-superficial nonocclusive thrombus right cephalic vein 11/19-bronchial washings- moderate staph aureus, Aspergillus -Cdiff pending -11/20- repeat blood and urine cultures-NGTD HEME: -Monitor CBC, CMP ENDO: Hypokalemia Hyperglycemia of critical illness -Electrolyte replacement per protocol. Sliding scale insulin if needed -On [place] Thyroid 90mg daily, TSH: 0.123 -Glucose monitoring every 6 hours per ICU protocol -Sliding-scale insulin MSK: Clinical illness polyneuropathy -PT-functional maintenance daily - Multi-Podus boots PROPH: -Bilateral lower extremity SCDs. Subcutaneous heparin 5000 q 8 for DVT prophylaxis. IV Protonix for GI prophylaxis LINES: -Utilize peripheral IVs. No invasive lines. This patient remains critically ill with one or more organ systems which are or may become a threat to life. I have spent in excess of 33 minutes discontinuously in the care and management of this patient. This time is exclusive of procedures, and includes, but is not limited to, evaluation of the patient, review of the medical record, discussions with family, consultants, nursing staff, or respiratory therapy, and documentation in the medical record. Discussed with CMM PROGRAMMER at bedside and Dr. Rodríguez() and the decision to proceed with percutaneous tracheostomy . Physician Megha Pastrana MD Nov 23, 2016 08:40
[2016-11-23] MEDS ORDERED: MELATONIN 5 MG TAB PO PRN (09:00)
[2016-11-23 09:26] LABS: AUTOMATED NEUTROPHIL # 24.4 TH/MM3 (1.8-7.7); BASOPHIL # 0.1 TH/MM3 (0-0.2); BASOPHIL % 0.3 % (0.0-2.0); HEMATOCRIT 31.2 % (35.0-46.0); HEMO FLAGS DIFF FINAL; LYMPH % 1.5 % (9.0-44.0); LYMPHOCYTE # 0.4 TH/MM3 (1.0-4.8); MEAN CELL VOLUME 99.2 FL (80.0-100.0); MEAN CORPUSCULAR HEMOGLOBIN 33.1 PG (27.0-34.0); MEAN CORPUSCULAR HGB CONC 33.4 % (32.0-36.0); MONO % 1.7 % (0.0-8.0); NEUT % 96.5 % (16.0-70.0); PLATELET COUNT 150 TH/MM3 (150-450); RED BLOOD COUNT 3.14 MIL/MM3 (4.00-5.30); WHITE BLOOD COUNT 25.2 TH/MM3 (4.0-11.0)
[2016-11-23] MEDS ORDERED: fentaNYL 25 MCG/HR PATCH TD SCH (10:00)
[2016-11-23 10:11] LABS: BICARBONATE 30.5 MEQ/L (21.0-32.0); POTASSIUM 4.3 MEQ/L (3.5-5.1)
[2016-11-23] MEDS: PANTOPRAZOLE SODIUM 40 MG VIAL IV PUSH SCH (13:26)
[2016-11-23] MEDS: ACETAMINOPHEN/HYDROcodone 325 MG/10 MG TAB PO PRN (13:27)
--- NOTE | 2016-11-23 14:32 | HHI.IDPN ---
Note Infectious Disease Note Notes reviewed. Patient on vent. Awake and alert. Low grade fever. little secretions. No blood. Has mediastinal air. Also Sub Q emphysema. BM. No diarrhea. WBC increased today. PAST MEDICAL HISTORY 1. Asthma. 2. Pulmonary fibrosis. 3. Gastroesophageal reflux disease. 4. Hemochromatosis. 5. Acid reflux. 6. Cholecystectomy. 7. Lumbar spine surgery. 8. Cervical spine surgery. 9. Hysterectomy. 10. Left parotid gland surgery. 11. Breast reduction. 12. Tonsillectomy. 13. Anterior cervical fusion of C6-C7. ALLERGIES 1. BETADINE. 2. IODINE. 3. THE PATIENT'S REPORTS SHE GETS UPSET STOMACH WITH CIPROFLOXACIN BUT THAT SHE IS UNABLE TO TOLERATE IV CIPROFLOXACIN. ANTIBIOTICS: Aztreonam. Zyvox. Micafungin. Voriconazole. OBJECTIVE: Vital Signs Date Time Temp Pulse Resp B/P Pulse Ox O2 Delivery O2 Flow Rate FiO2 11/23/16 11:28 90 80 11/23/16 07:35 91 80 11/23/16 06:00 90 11/23/16 04:02 93 90 11/23/16 04:00 88 11/23/16 04:00 80 11/23/16 04:00 99.3 88 26 167/81 92 11/23/16 02:00 83 11/23/16 00:34 90 90 11/23/16 00:00 99.9 82 30 150/73 91 11/23/16 00:00 82 11/23/16 00:00 80 11/22/16 22:00 77 11/22/16 20:05 88 80 11/22/16 20:00 82 11/22/16 20:00 80 11/22/16 20:00 98.9 82 25 176/75 92 11/22/16 18:10 88 80 11/22/16 18:00 86 11/22/16 16:00 99.3 74 26 178/85 88 11/22/16 16:00 74 11/22/16 16:00 80 11/22/16 11/22/16 11/23/16 15:00 23:00 07:00 Intake Total 654 ml 921 ml 1248 ml Output Total 375 ml 600 ml 575 ml Balance 279 ml 321 ml 673 ml IV Total 292 ml 600 ml 905 ml Tube Feeding 362 ml 321 ml 343 ml Output Urine Total 375 ml 600 ml 575 ml # Bowel Movements 1 1 2 Laboratory Tests Test 11/23/16 09:04 White Blood Count 25.2 TH/MM3 Red Blood Count 3.14 MIL/MM3 Hemoglobin 10.4 GM/DL Hematocrit 31.2 % Mean Corpuscular Volume 99.2 FL Mean Corpuscular Hemoglobin 33.1 PG Mean Corpuscular Hemoglobin 33.4 % Concent Red Cell Distribution Width 14.0 % Platelet Count 150 TH/MM3 Mean Platelet Volume 11.2 FL Neutrophils (%) (Auto) 96.5 % Lymphocytes (%) (Auto) 1.5 % Monocytes (%) (Auto) 1.7 % Eosinophils (%) (Auto) 0.0 % Basophils (%) (Auto) 0.3 % Neutrophils # (Auto) 24.4 TH/MM3 Lymphocytes # (Auto) 0.4 TH/MM3 Monocytes # (Auto) 0.4 TH/MM3 Eosinophils # (Auto) 0.0 TH/MM3 Basophils # (Auto) 0.1 TH/MM3 CBC Comment DIFF FINAL Differential Comment Laboratory Tests Test 11/22/16 11/23/16 04:13 09:04 Sodium Level 147 MEQ/L 153 MEQ/L Potassium Level 4.7 MEQ/L 4.3 MEQ/L Chloride Level 110 MEQ/L 113 MEQ/L Carbon Dioxide Level 29.2 MEQ/L 30.5 MEQ/L Anion Gap 8 MEQ/L 10 MEQ/L Blood Urea Nitrogen 48 MG/DL 45 MG/DL Creatinine 1.23 MG/DL 1.18 MG/DL Estimat Glomerular Filtration 43 ML/MIN 45 ML/MIN Rate Random Glucose 234 MG/DL 196 MG/DL Calcium Level 8.5 MG/DL 8.1 MG/DL Total Bilirubin 0.4 MG/DL Aspartate Amino Transf 42 U/L (AST/SGOT) Alanine Aminotransferase 71 U/L (ALT/SGPT) Alkaline Phosphatase 96 U/L Total Protein 6.2 GM/DL Albumin 1.9 GM/DL Microbiology Date/Time Procedure Status Source Growth 11/19/16 18:00 Gram Stain Received Sputum Endotracheal Pending 11/19/16 18:00 Sputum Culture Received Sputum Endotracheal Pending 11/19/16 18:00 Gram Stain - Final Resulted Bronchial Washings Other 11/19/16 18:00 Bronchial Culture - Preliminary Resulted Aspergillus Species 11/20/16 13:36 Aerobic Blood Culture - Preliminary Resulted Blood Peripheral NO GROWTH IN 2 DAYS 11/20/16 13:36 Anaerobic Blood Culture - Preliminary Resulted Blood Peripheral NO GROWTH IN 2 DAYS 11/20/16 13:41 Aerobic Blood Culture - Preliminary Resulted Blood Peripheral NO GROWTH IN 2 DAYS 11/20/16 13:41 Anaerobic Blood Culture - Preliminary Resulted Blood Peripheral NO GROWTH IN 2 DAYS 11/20/16 13:45 Urine Culture - Final Complete Urine Catheterized Urine NO GROWTH IN 48 HOURS. IMAGING: Chest X-Ray 11/23/16 0000 Signed Impressions: Service Date/Time: Wednesday, November 23, 2016 07:56 - CONCLUSION: 1. Overall improvement in the radiographic appearance of the chest. Persistent bibasilar areas of atelectasis/effusion are identified the airway appears to be better aerated when compared to prior. 2. Similarly, decreasing air in the mediastinum and soft tissues of the left chest. 3. Hyperinflation with no pneumothorax. Stable position of life support tubes. Cal Davis MD Chest X-Ray 11/22/16 0600 Signed Impressions: Service Date/Time: Tuesday, November 22, 2016 06:00 - CONCLUSION: 1. Stable chest x-ray with bilateral mid and lower lung zone airspace consolidation. 2. Stable pneumomediastinum and chest wall soft tissue air. No pneumothorax is appreciated. Jimmy Lara MD Chest X-Ray 11/21/16 0600 Signed Impressions: Service Date/Time: Monday, November 21, 2016 04:25 - CONCLUSION: 1. Persistent pneumomediastinum. No pneumothorax is identified. 2. Stable bilateral lower lung zone airspace consolidation. 3. New left axillary region soft tissue air from uncertain etiology. Jimmy Lara MD Chest CT 11/21/16 0000 Signed Impressions: Service Date/Time: Monday, November 21, 2016 16:14 - CONCLUSION: 1. Improvement of previous diffuse groundglass opacity. Probable developing fibrotic changes at the bases with some traction bronchiectasis. 2. Extensive air leak with pneumomediastinum and subcutaneous emphysema. There is also some loculated air at the right lung base that is new since the prior examination. This could represent a pneumatocele measuring 4.5 cm. Matt Wolf MD PHYSICAL EXAMINATION GENERAL: No acute distress. HEENT: No icterus. Dry mucosa. NECK: No adenopathy or swelling. Neck collar in place. LUNGS: Bilateral rhonchi. HEART: Regular S1 and S2. No audible murmurs. ABDOMEN: Decreased bowel sounds, soft. non tender. EXTREMITIES: No edema. Pulses 2+ radial and dorsalis pedis. SKIN: No rash. NEUROLOGIC: non focal. PSYCHIATRIC: Alert and responsive. IMPRESSION 1. Fever, questionable etiology. Temp improved initially after stopping beta lactam abx. ? Pneumonia. Staph in sputum culture. Periodic low grade fever. 2. Acute respiratory failure. Extubated. Reintubated. 3. Leukocytosis. ? due to PNA. WBC still elevated. Also has superficial distal r. cephalic vein thrombus. Also on Solumedrol. However still has abnormal CXR. ? result of pulmonary fibrosis. 4. Sepsis on admission indicated by elevated heart rate, elevated temperature, elevated white blood cell count. Source unclear but likely pulmonary. 5. Abnormal chest x-ray with bilateral interstitial infiltrates suggesting possible pneumonia versus COPD or fibrosis. Fungal pneumonia. Bronch culture has Staph species, aspergillus fumigatus. RECOMMENDATIONS 1. Continue Aztreonam for gram negative pulmonary coverage. 2. Continue Micafungin. 3. Continue Voriconazole. 4. Continue Zyvox IV. Will hold Welbutrim because of Zyvox interaction. 5. Monitor white blood cell count and temp. 6. Monitor clinical status. D/W . Roberto Phan MD Nov 23, 2016 14:32
[2016-11-23] MEDS: cloNIDine HCL 0.1 MG TAB PO PRN (15:02)
[2016-11-23] MEDS: fentaNYL 2,500 MCG/NS 250 ML IV SCH (15:26)
[2016-11-23] MEDS: ALPRAZolam 0.5 MG TAB PO PRN (16:42)
[2016-11-23] MEDS ORDERED: ROCURONIUM INJ 50 MG/5 ML VIAL ONE (17:43)
[2016-11-23] MEDS ORDERED: NOREPINEPHRINE-DEXTROSE DRIP 250 ML IV ONE (18:22)
--- NOTE | 2016-11-23 18:50 | HHI.CCPN ---
Subjective Remarks/Hospital Course Difficult to ventilate, with high PEEP pressures. Emergency chest x-ray done stat showed a large right pneumothorax with tension. I prepared for emergency chest tube placement, while I was getting the equipment ready at the bedside, patient lost blood pressure became bradycardic and then developed asystolic arrest. ACLS protocol followed with immediate CPR, 2 rounds of epinephrine and 2 rounds of bicarbonate. At the same time I did emergency needle decompression of the right lateral chest and place an emergency 10 [place] pigtail catheter. Once the pigtail catheter was to suction, patient regained pulse and blood pressure back. I also placed an emergency right femoral central line. Patient will be continued on Levophed infusion Critical care time additional 35 minutes excluding procedures, but including CPR time Objective Vital Signs Date Time Temp Pulse Resp B/P Pulse Ox O2 Delivery O2 Flow Rate FiO2 11/23/16 18:03 86 100 11/23/16 06:00 90 11/23/16 04:00 99.3 26 167/81 11/21/16 15:30 Mechanical Ventilator 11/19/16 09:20 30.00 Intake and Output 11/22/16 11/22/16 11/23/16 08:00 16:00 00:00 Intake Total 1061 ml 654 ml 921 ml Output Total 500 ml 375 ml 600 ml Balance 561 ml 279 ml 321 ml Result Diagram: 11/23/16 0904 11/23/16 0904 Imaging Last Impressions Chest X-Ray 11/22/16 0600 Signed Impressions: Service Date/Time: Tuesday, November 22, 2016 06:00 - CONCLUSION: 1. Stable chest x-ray with bilateral mid and lower lung zone airspace consolidation. 2. Stable pneumomediastinum and chest wall soft tissue air. No pneumothorax is appreciated. Jimmy Lara MD Chest CT 11/21/16 0000 Signed Impressions: Service Date/Time: Monday, November 21, 2016 16:14 - CONCLUSION: 1. Improvement of previous diffuse groundglass opacity. Probable developing fibrotic changes at the bases with some traction bronchiectasis. 2. Extensive air leak with pneumomediastinum and subcutaneous emphysema. There is also some loculated air at the right lung base that is new since the prior examination. This could represent a pneumatocele measuring 4.5 cm. Matt Wolf MD Abdomen X-Ray 2/2/17 0000 Signed Impressions: Service Date/Time: November 22:26 - CONCLUSION: Nasogastric tube has its tip near the gastric outlet. Nonobstructive bowel gas pattern. Jimmy Hoffmann MD Abdomen CT 11/19/16 0000 Signed Impressions: Service Date/Time: Sunday, November 20, 2016 04:24 - CONCLUSION: 1. No acute finding is identified within the abdomen on this noncontrast examination. 2. There is severe airspace consolidation/groundglass attenuation in both lung bases. Pneumomediastinum is present and there is a small right pneumothorax. Jimmy Lara MD Upper Extremity Ultrasound 11/11/16 0000 Signed Impressions: Service Date/Time: Friday, November 11, 2016 21:51 - CONCLUSION: 1. No evidence of DVT. 2. Focal superficial thrombosis involving the distal right cephalic vein. Roland Maier MD Lower Extremity Ultrasound 11/11/16 Signed Impressions: Service Date/Time: Friday, November 11, 2016 21:22 - CONCLUSION: Negative exam with no evidence of deep venous thrombosis. Rex Corcoran MD Liver Ultrasound 11/09/16 0000 Signed Impressions: Service Date/Time: Wednesday, November 09, 2016 08:03 - CONCLUSION: 1. No acute abnormality. 2. Prior cholecystectomy. Common bile duct is within the normal range in terms of size for patient status post cholecystectomy. 3. Dystrophic calcification involving the right lobe of the liver. Scott Mittal Jr., MD Thoracic Spine MRI 11/07/16 Signed Impressions: Service Date/Time: Monday, November 07, 2016 10:23 - CONCLUSION: 1. There is a fracture of the T1 vertebral body and T5 vertebral body. No significant height loss is present and there is no retropulsion of any fracture fragment. No canal stenosis is present. 2. Please refer to today's chest CT examination report for description of the pulmonary findings. Jimmy Lara MD Renal Ultrasound 11/06/16 0000 Signed Impressions: Service Date/Time: Sunday, November 06, 2016 22:24 - CONCLUSION: Probable complicated cyst midpole left kidney measuring 2.0 cm. Otherwise negative exam. No evidence of hydronephrosis. Scott Cantor MD Head CT 11/04/16 6293 Signed Impressions: Service Date/Time: Friday, November 04, 2016 23:45 - CONCLUSION: No acute intracranial findings. Jimmy Felton MD Abdomen/Pelvis CT 11/04/16 0000 Signed Impressions: Service Date/Time: Friday, November 04, 2016 23:48 - CONCLUSION: Markedly dilated urinary bladder with mild-moderate bilateral hydronephrosis Jimmy Felton MD Last Impressions Chest X-Ray 11/15/16 0000 Signed Impressions: Service Date/Time: Tuesday, November 15, 2016 11:02 - CONCLUSION: No significant interval change. Roland Maier MD Upper Extremity Ultrasound 11/11/16 0000 Signed Impressions: Service Date/Time: Friday, November 11, 2016 21:51 - CONCLUSION: 1. No evidence of DVT. 2. Focal superficial thrombosis involving the distal right cephalic vein. Roland Maier MD Lower Extremity Ultrasound 11/11/16 0000 Signed Impressions: Service Date/Time: Friday, November 11, 2016 21:22 - CONCLUSION: Negative exam with no evidence of deep venous thrombosis. Rex Corcoran MD Liver Ultrasound 11/09/16 0000 Signed Impressions: Service Date/Time: Wednesday, November 09, 2016 08:03 - CONCLUSION: 1. No acute abnormality. 2. Prior cholecystectomy. Common bile duct is within the normal range in terms of size for patient status post cholecystectomy. 3. Dystrophic calcification involving the right lobe of the liver. Scott Mittal Jr., MD Thoracic Spine MRI 11/07/16 0000 Signed Impressions: Service Date/Time: Monday, November 07, 2016 10:23 - CONCLUSION: 1. There is a fracture of the T1 vertebral body and T5 vertebral body. No significant height loss is present and there is no retropulsion of any fracture fragment. No canal stenosis is present. 2. Please refer to today's chest CT examination report for description of the pulmonary findings. Jimmy Lara MD Renal Ultrasound 11/06/16 0000 Signed Impressions: Service Date/Time: Sunday, November 06, 2016 22:24 - CONCLUSION: Probable complicated cyst midpole left kidney measuring 2.0 cm. Otherwise negative exam. No evidence of hydronephrosis. Scott Cantor MD Chest CT 11/06/16 0000 Signed Impressions: Service Date/Time: Monday, November 07, 2016 10:50 - CONCLUSION: Severe diffuse geographic areas of groundglass attenuation bilaterally with trace bilateral pleural effusions. The pattern is nonspecific but can be seen with infection and ARDS among other etiologies. Jimmy Lara MD Head CT 11/04/16 2326 Signed Impressions: Service Date/Time: Friday, November 04, 2016 23:45 - CONCLUSION: No acute intracranial findings. Jimmy Felton MD Abdomen/Pelvis CT 11/04/16 0000 Signed Impressions: Service Date/Time: Friday, November 04, 2016 23:48 - CONCLUSION: Markedly dilated urinary bladder with mild-moderate bilateral hydronephrosis Jimmy Felton MD Last Impressions Chest X-Ray 11/12/16 0600 Signed Impressions: Service Date/Time: October 02:40 - CONCLUSION: No significant interval change. Roland Maier MD Upper Extremity Ultrasound 11/11/16 0000 Signed Impressions: Service Date/Time: Friday, November 11, 2016 21:51 - CONCLUSION: 1. No evidence of DVT. 2. Focal superficial thrombosis involving the distal right cephalic vein. Roland Maier MD Lower Extremity Ultrasound 11/11/16 0000 Signed Impressions: Service Date/Time: Friday, November 11, 2016 21:22 - CONCLUSION: Negative exam with no evidence of deep venous thrombosis. Rex Corcoran MD Liver Ultrasound 11/09/16 0000 Signed Impressions: Service Date/Time: Wednesday, November 09, 2016 08:03 - CONCLUSION: 1. No acute abnormality. 2. Prior cholecystectomy. Common bile duct is within the normal range in terms of size for patient status post cholecystectomy. 3. Dystrophic calcification involving the right lobe of the liver. Scott Mittal Jr., MD Thoracic Spine MRI 11/07/16 0000 Signed Impressions: Service Date/Time: Monday, November 07, 2016 10:23 - CONCLUSION: 1. There is a fracture of the T1 vertebral body and T5 vertebral body. No significant height loss is present and there is no retropulsion of any fracture fragment. No canal stenosis is present. 2. Please refer to today's chest CT examination report for description of the pulmonary findings. Jimmy Lara MD Renal Ultrasound 11/06/16 0000 Signed Impressions: Service Date/Time: Sunday, November 06, 2016 22:24 - CONCLUSION: Probable complicated cyst midpole left kidney measuring 2.0 cm. Otherwise negative exam. No evidence of hydronephrosis. Scott Cantor MD Chest CT 11/06/16 0000 Signed Impressions: Service Date/Time: Monday, November 07, 2016 10:50 - CONCLUSION: Severe diffuse geographic areas of groundglass attenuation bilaterally with trace bilateral pleural effusions. The pattern is nonspecific but can be seen with infection and ARDS among other etiologies. Jimmy Lara MD Head CT 11/04/16 2326 Signed Impressions: Service Date/Time: Friday, November 04, 2016 23:45 - CONCLUSION: No acute intracranial findings. Jimmy Felton MD Abdomen/Pelvis CT 11/04/16 0000 Signed Impressions: Service Date/Time: Friday, November 04, 2016 23:48 - CONCLUSION: Markedly dilated urinary bladder with mild-moderate bilateral hydronephrosis Jimmy Felton MD Last Impressions Chest X-Ray 11/12/16 0600 Signed Impressions: Service Date/Time: October 02:40 - CONCLUSION: No significant interval change. Roland Maier MD Upper Extremity Ultrasound 11/11/16 0000 Signed Impressions: Service Date/Time: Friday, November 11, 2016 21:51 - CONCLUSION: 1. No evidence of DVT. 2. Focal superficial thrombosis involving the distal right cephalic vein. Roland Maier MD Lower Extremity Ultrasound 11/11/16 0000 Signed Impressions: Service Date/Time: Friday, November 11, 2016 21:22 - CONCLUSION: Negative exam with no evidence of deep venous thrombosis. Rex Corcoran MD Liver Ultrasound 11/09/16 0000 Signed Impressions: Service Date/Time: Wednesday, November 09, 2016 08:03 - CONCLUSION: 1. No acute abnormality. 2. Prior cholecystectomy. Common bile duct is within the normal range in terms of size for patient status post cholecystectomy. 3. Dystrophic calcification involving the right lobe of the liver. Scott Mittal Jr., MD Thoracic Spine MRI 11/07/16 0000 Signed Impressions: Service Date/Time: Monday, November 07, 2016 10:23 - CONCLUSION: 1. There is a fracture of the T1 vertebral body and T5 vertebral body. No significant height loss is present and there is no retropulsion of any fracture fragment. No canal stenosis is present. 2. Please refer to today's chest CT examination report for description of the pulmonary findings. Jimmy Lara MD Renal Ultrasound 11/06/16 0000 Signed Impressions: Service Date/Time: Sunday, November 06, 2016 22:24 - CONCLUSION: Probable complicated cyst midpole left kidney measuring 2.0 cm. Otherwise negative exam. No evidence of hydronephrosis. Scott Cantor MD Chest CT 11/06/16 0000 Signed Impressions: Service Date/Time: Monday, November 07, 2016 10:50 - CONCLUSION: Severe diffuse geographic areas of groundglass attenuation bilaterally with trace bilateral pleural effusions. The pattern is nonspecific but can be seen with infection and ARDS among other etiologies. Jimmy Lara MD Head CT 11/04/16 2326 Signed Impressions: Service Date/Time: Friday, November 04, 2016 23:45 - CONCLUSION: No acute intracranial findings. Jimmy Felton MD Abdomen/Pelvis CT 11/04/16 0000 Signed Impressions: Service Date/Time: Friday, November 04, 2016 23:48 - CONCLUSION: Markedly dilated urinary bladder with mild-moderate bilateral hydronephrosis Jimmy Felton MD Last Impressions Liver Ultrasound 11/09/16 0000 Signed Impressions: Service Date/Time: Wednesday, November 09, 2016 08:03 - CONCLUSION: 1. No acute abnormality. 2. Prior cholecystectomy. Common bile duct is within the normal range in terms of size for patient status post cholecystectomy. 3. Dystrophic calcification involving the right lobe of the liver. Scott Mittal Jr., MD Chest X-Ray 11/09/16 0000 Signed Impressions: Service Date/Time: Wednesday, November 09, 2016 03:36 - CONCLUSION: Mild improvement in the bilateral interstitial infiltrates. Roland Maier MD Thoracic Spine MRI 11/07/16 0000 Signed Impressions: Service Date/Time: Monday, November 07, 2016 10:23 - CONCLUSION: 1. There is a fracture of the T1 vertebral body and T5 vertebral body. No significant height loss is present and there is no retropulsion of any fracture fragment. No canal stenosis is present. 2. Please refer to today's chest CT examination report for description of the pulmonary findings. Jimmy Lara MD Renal Ultrasound 11/06/16 0000 Signed Impressions: Service Date/Time: Sunday, November 06, 2016 22:24 - CONCLUSION: Probable complicated cyst midpole left kidney measuring 2.0 cm. Otherwise negative exam. No evidence of hydronephrosis. Scott Cantor MD Chest CT 11/06/16 0000 Signed Impressions: Service Date/Time: Monday, November 07, 2016 10:50 - CONCLUSION: Severe diffuse geographic areas of groundglass attenuation bilaterally with trace bilateral pleural effusions. The pattern is nonspecific but can be seen with infection and ARDS among other etiologies. iJmmy Lara MD Head CT 11/04/16 2326 Signed Impressions: Service Date/Time: Friday, November 04, 2016 23:45 - CONCLUSION: No acute intracranial findings. Jimmy Felton MD Abdomen/Pelvis CT 11/04/16 0000 Signed Impressions: Service Date/Time: Friday, November 04, 2016 23:48 - CONCLUSION: Markedly dilated urinary bladder with mild-moderate bilateral hydronephrosis Jimmy Felton MD Last Impressions Chest X-Ray 11/07/16 0600 Signed Impressions: Service Date/Time: Monday, November 07, 2016 05:03 - CONCLUSION: Persistent and stable bilateral air space opacities in the medial lungs. Scott Cantor MD Thoracic Spine MRI 11/07/16 0000 Signed Impressions: Service Date/Time: Monday, November 07, 2016 10:23 - CONCLUSION: 1. There is a fracture of the T1 vertebral body and T5 vertebral body. No significant height loss is present and there is no retropulsion of any fracture fragment. No canal stenosis is present. 2. Please refer to today's chest CT examination report for description of the pulmonary findings. Jimmy Lara MD Renal Ultrasound 11/06/16 0000 Signed Impressions: Service Date/Time: Sunday, November 06, 2016 22:24 - CONCLUSION: Probable complicated cyst midpole left kidney measuring 2.0 cm. Otherwise negative exam. No evidence of hydronephrosis. Scott Cantor MD Chest CT 11/06/16 0000 Signed Impressions: Service Date/Time: Monday, November 07, 2016 10:50 - CONCLUSION: Severe diffuse geographic areas of groundglass attenuation bilaterally with trace bilateral pleural effusions. The pattern is nonspecific but can be seen with infection and ARDS among other etiologies. Jimmy Lara MD Head CT 11/04/16 2326 Signed Impressions: Service Date/Time: Friday, November 04, 2016 23:45 - CONCLUSION: No acute intracranial findings. Jimmy Felton MD Abdomen/Pelvis CT 11/04/16 0000 Signed Impressions: Service Date/Time: Friday, November 04, 2016 23:48 - CONCLUSION: Markedly dilated urinary bladder with mild-moderate bilateral hydronephrosis MD Jimmy Clifford Sinoj K. MD Nov 23, 2016 18:50
--- NOTE | 2016-11-23 18:55 | PD.PROCEDR ---
Procedure Note Procedure Emergency right pigtail catheter placement Patient was adequately positioned. Procedure was done emergently due to tension pneumothorax. Emergency right chest decompression performed, and the right sixth intercostal space. Following that I introduced a guidewire through the needle, and needle was removed. Tract was dilated, using Seldinger technique 10 [place]onian pigtail catheter was introduced into the pleural space, and was connected to the Vacutainer. Immediate large air leak which gradually decreased. Hooked to -40 suction. Saturation improved to 99 %, and there was return of spontaneous circulation Brinda Marquez MD Nov 23, 2016 18:55
--- NOTE | 2016-11-23 18:58 | PD.PROCEDR ---
Central Line Procedure REASON FOR PROCEDURE Central venous access PROCEDURE PERFORMED Central line placement: R femoral vein CONSENT Emergency procedure ANESTHESIA Local injection of 1% Lidocaine DESCRIPTION OF THE PROCEDURE The patient was placed in supine, mild Trendelenburg position. The area was exposed and cleansed with ChloraPrep, times two. Large sterile drape was used to cover the patient, with the site exposed, under sterile conditions including cap, face mask, sterile gown, and sterile gloves. On single attempt, the introducer needle was inserted with negative pressure in syringe and venous flash was obtained. The guide wire was then advanced without any restriction and the needle was removed. The dilator was used without any complications. Using Seldinger technique the 20 cm 7F catheter was advanced over the guide wire to a depth of 18 centimeters. The guide wire was removed. All ports were aspirated with dark venous blood return and flushed easily with sterile saline. All ports were capped. Antibiotic disc was placed around central line at puncture site. The central line was secured to the skin with two interrupted 2.0 silk sutures. The area was bandaged with sterile see-through central line bandage. COMPLICATIONS: No apparent complications ESTIMATED BLOOD LOSS: Less than 1 cc. Brinda Marquez MD Nov 23, 2016 18:58
[2016-11-23] MEDS ORDERED: TERBUTALINE INJ 1 MG/ML AMP SQ PRN (19:00)
--- NOTE | 2016-11-23 19:02 | RADRPT ---
EXAM DATE/TIME: 11/23/2016 18:09 [facility] COMPARISON: CHEST SINGLE AP, November 23, 2016, 7:56. INDICATIONS : Respiratory distress. MEDICAL HISTORY : Hypertension. Chronic obstructive pulmonary disease. SURGICAL HISTORY : None. ENCOUNTER: Subsequent ACUITY: 2 weeks PAIN SCORE: Non-responsive. LOCATION: Bilateral chest FINDINGS: A single view of the chest demonstrates a large right-sided pneumothorax with collapse of the right l ulices and mediastinal shift from right to left. Endotracheal tube in satisfactory position. NG tube ent ering stomach. Hazy airspace disease in the left lung. Subcutaneous air in left chest wall. CONCLUSION: Large right-sided pneumothorax with collapse of the right lung and mediastinal shift from right to le ft. There is hazy opacity left lung. Endotracheal tube and nasogastric tube in satisfactory position. Critical value placed and technologist instructed to call floor immediately. Matt Wolf MD on November 23, 2016 at 18:55 Board Certified Radiologist. This report was verified electronically.
[2016-11-23 19:46] LABS: AUTOMATED NEUTROPHIL # 20.4 TH/MM3 (1.8-7.7); BASOPHIL # 0.1 TH/MM3 (0-0.2); BASOPHIL % 0.4 % (0.0-2.0); HEMATOCRIT 28.3 % (35.0-46.0); LYMPH % 3.8 % (9.0-44.0); LYMPHOCYTE # 0.8 TH/MM3 (1.0-4.8); MEAN CELL VOLUME 102.5 FL (80.0-100.0); MEAN CORPUSCULAR HEMOGLOBIN 32.7 PG (27.0-34.0); MEAN CORPUSCULAR HGB CONC 31.9 % (32.0-36.0); MONO % 1.3 % (0.0-8.0); NEUT % 94.5 % (16.0-70.0); PLATELET COUNT 131 TH/MM3 (150-450); RED BLOOD COUNT 2.76 MIL/MM3 (4.00-5.30); RED CELL DISTRIBUTION WIDTH 14.7 % (11.6-17.2); WHITE BLOOD COUNT 21.6 TH/MM3 (4.0-11.0)
[2016-11-23 19:50] LABS: PROTHROMBIN TIME - PATIENT 11.1 SEC (9.8-11.6)
[2016-11-23 19:51] LABS: HEMO FLAGS AUTO DIFF
[2016-11-23 20:06] LABS: BICARBONATE 29.1 MEQ/L (21.0-32.0); CALCIUM-PROTEIN CORRECTED 8.2 MG/DL (8.5-10.1); MAGNESIUM 2.5 MG/DL (1.5-2.5); POTASSIUM 4.5 MEQ/L (3.5-5.1); TOTAL BILIRUBIN ADULT 0.4 MG/DL (0.2-1.0)
--- NOTE | 2016-11-23 20:20 | RADRPT ---
EXAM DATE/TIME: 11/23/2016 18:54 [facility] COMPARISON: CHEST SINGLE AP, November 23, 2016, 18:09. INDICATIONS : Right chest tube. MEDICAL HISTORY : unobtainable SURGICAL HISTORY : unobtainable ENCOUNTER: Initial ACUITY: 1 day PAIN SCORE: Non-responsive. LOCATION: Bilateral upper chest FINDINGS: There is placement of a small caliber right-sided chest tube with resolution of previous large right pneumothorax. There is bilateral mostly basilar airspace disease. Endotracheal tube and nasogastric t ube remain in satisfactory position. CONCLUSION: 1. Placement of small caliber right chest tube with resolution of previous right pneumothorax. Matt Wolf MD on November 23, 2016 at 20:17 Board Certified Radiologist. This report was verified electronically.
[2016-11-23 20:28] LABS: BANDS 5 % (0-6); NEUTROPHIL # MANUAL DIFF 20.5 TH/MM3 (1.8-7.7); PLATELET ESTIMATE SMEAR LOW (NORMAL); PLATELET MORPHOLOGY NORMAL (NORMAL); POLYS (SEG NEUTROPHILS) 90 % (16-70); WBC DIFF SAMPLE 100
[2016-11-23 20:29] LABS: SCAN/DIFF FINAL DIFF MANUAL
[2016-11-23 20:32] LABS: BLOOD GAS BASE EXCESS 3.2 mmol/L (-2-2); BLOOD GAS CARBOXYHEMOGLOBIN 1.2 % (0-4); BLOOD GAS HCO3 28 mmol/L (22-26); BLOOD GAS METHEMOGLOBIN 1.2 % (0-2); BLOOD GAS O2 HGB SATURATION 91 % (90-100); BLOOD GAS PCO2 52 mmHg (38-42); BLOOD GAS PO2 76 mmHg (61-120); BLOOD GAS TOTAL HGB 9.3 G/DL (12.0-16.0); TEMP CORR TO 98.6
[2016-11-23 20:33] LABS: CRITICAL VALUE YES; OXYGEN DEVICE VENTILATOR
[2016-11-23 20:35] LABS: DRAW SITE RT BRACHIAL; FIO2 100 %; NUMBER OF ARTERIAL PUNCTURES 2; STAT NO; ULNAR PULSE PRESENT; VENT SETTINGS PCV
[2016-11-23] MEDS: MICAFUNGIN INJ 100 MG in SODIUM CHLORIDE 0.9% INJ 100 ML IV SCH (20:57)
[2016-11-23] MEDS: CISATRACURIUM INJ 100 MG in SODIUM CHLOR 0.9% 250 ML INJ 240 ML IV SCH (20:58)
[2016-11-23] MEDS: MONTELUKAST SODIUM 10 MG TAB PO SCH (20:59)
[2016-11-24] VITALS (19 sets, daily range): BP systolic 104–131; BP diastolic 56–68; PULSE 60–92; RESP 20–24; TEMP 97.3–99; O2SAT 86–98
[2016-11-24] MEDS: fentaNYL 2,500 MCG/NS 250 ML IV SCH ×3 (00:59→16:47)
[2016-11-24] MEDS: MIDAZOLAM 100 MG/NS 100 ML DRIP Premix IV SCH ×2 (00:59→19:36)
[2016-11-24] MEDS: NOREPINEPHRINE-DEXTROSE DRIP 250 ML IV SCH ×2 (01:00→19:35)
[2016-11-24] MEDS: EPOPROSTENOL NEB SOLUTION 50 NG/KG/MIN 100 ML NEB SCH ×6 (01:52→18:00)
[2016-11-24] MEDS: LINEZOLID 600 MG PREMIX 300 ML IV SCH (01:52)
[2016-11-24] MEDS: CISATRACURIUM INJ 100 MG in SODIUM CHLOR 0.9% 250 ML INJ 240 ML IV SCH ×4 (04:02→21:34)
[2016-11-24] MEDS: VORICONAZOLE IV SCH ×2 (04:26→16:00)
[2016-11-24] MEDS: SODIUM CHLORIDE 0.9% IV SCH ×2 (04:26→16:00)
[2016-11-24] MEDS ORDERED: LIDOCAINE 1%/EPINEPHrine 1:100,000 SOLN 30 ML VIAL ONE (04:44)
[2016-11-24] MEDS: RESP: ALBUTEROL 2.5 MG/IPRATROPIUM 0.5 MG NEB (SCH) NEB ×4 (05:20→20:01)
--- NOTE | 2016-11-24 05:49 | RADRPT ---
EXAM DATE/TIME: 11/24/2016 04:30 [facility] COMPARISON: CHEST SINGLE AP, November 23, 2016, 18:54. INDICATIONS : Shortness of breath. MEDICAL HISTORY : Hypertension. Cardiovascular disease. Chronic obstructive pulmonary disease. SURGICAL HISTORY : None. ENCOUNTER: Subsequent ACUITY: 3 weeks PAIN SCORE: Non-responsive. LOCATION: Bilateral chest FINDINGS: Endotracheal tube tip at the inferior margin of clavicles. Tube courses beneath this diaphragm. There is left lower lobe consolidation and patchy left airspace disease. There is a large right-sided pneu mothorax with subcutaneous emphysema seen. There is significant atelectasis of the right lung. CONCLUSION: Large right pneumothorax. Findings discussed with Merari, the nurse taking care of the patient at 5: 44am on 11/24/16. Jerman Dale MD on November 24, 2016 at 5:41 Board Certified Radiologist. This report was verified electronically.
--- NOTE | 2016-11-24 05:51 | RADRPT ---
EXAM DATE/TIME: 11/24/2016 05:07 [facility] COMPARISON: CHEST SINGLE AP, November 24, 2016, 4:30. INDICATIONS : Chest tube placement. MEDICAL HISTORY : Hypertension. Cardiovascular disease. Chronic obstructive pulmonary disease. SURGICAL HISTORY : None. ENCOUNTER: Subsequent ACUITY: 3 weeks PAIN SCORE: Non-responsive. LOCATION: Right chest FINDINGS: There is a large right-sided pneumothorax with collapse of the right lung. Left lung consolidation an d cardiomegaly are stable. Endotracheal tube, NG tube and EKG leads are noted. Extensive subcutaneous emphysema along the right chest. There is a chest tube identified overlying the right lateral chest soft tissues, distal tip external to the chest cavity. CONCLUSION: Large right-sided pneumothorax with tension component suspected. Chest tube needs to be repositioned. Findings discussed with Merari the nurse taking care of the patient at 5:45 AM on August 24, 2017. Jerman Dale MD on November 24, 2016 at 5:49 Board Certified Radiologist. This report was verified electronically.
--- NOTE | 2016-11-24 05:54 | RADRPT ---
EXAM DATE/TIME: 11/24/2016 05:41 [facility] COMPARISON: CHEST SINGLE AP, November 24, 2016, 4:30. CHEST SINGLE AP, November 24, 2016, 5:07. INDICATIONS : Chest tube placement. MEDICAL HISTORY : Hypertension. Cardiovascular disease. Chronic obstructive pulmonary disease. SURGICAL HISTORY : None. ENCOUNTER: Subsequent ACUITY: 3 weeks PAIN SCORE: Non-responsive. LOCATION: Right chest FINDINGS: Right-sided chest tube has now been placed and distal tip projects inferior to the right mid clavicle right mid to upper lung. There is interval reexpansion of the right lung. There is bilateral airspac e disease. NG tube courses beneath the diaphragm. Endotracheal tube tip at the inferior margin of the clavicles. Extensive soft tissue emphysema overlies the chest. CONCLUSION: Reexpansion of the right lung with chest tube in place. Jerman Dale MD on November 24, 2016 at 5:52 Board Certified Radiologist. This report was verified electronically.
[2016-11-24] MEDS: THYROID 30 MG TAB PO SCH (06:00)
--- NOTE | 2016-11-24 06:01 | PD.PROCEDR ---
Procedure Note Procedure Chest tube procedure note A time-out was completed verifying correct patient, procedure, site, positioning , and special equipment if applicable. The patient was positioned appropriately for chest tube placement. The patients right chest was prepped and draped in sterile fashion. 1% Lidocaine was used to anesthetize the surrounding skin area. A 2 cm skin incision was made in the mid-axillary line at the inframammary crease. Utilizing blunt dissection a subcutaneous tunnel was created cephalad just adjacent to the superior rib. The pleural space was entered bluntly and gush of air was observed. A finger was inserted into the pleural space to check for anatomy and guide tube insertion. A 20F thoracostomy tube was inserted using a Kaylin clamp and positioned appropriately at 18 cm. The chest tube was sutured securely to the skin and a sterile dressing applied. A pleurevac was attached to the chest tube and a chest x-ray obtained. Estimated Blood Loss: 2ml The patient tolerated the procedure well and there were no complications. I personally performed the procedure. CXR performed results pending. Megha Quintero MD Nov 24, 2016 06:01
[2016-11-24] MEDS: HEPARIN SODIUM - SQ 10,000 UNITS/ML VIAL SQ SCH ×3 (06:19→21:44)
[2016-11-24] MEDS: methylPREDNISolone SOD SUCC 40 MG/1 ML VIAL IV SCH ×3 (06:19→21:43)
[2016-11-24] MEDS: DILTIAZEM HCL 60 MG TAB PO SCH (06:20)
[2016-11-24] MEDS: AZTREONAM INJ 1,000 MG in SODIUM CHLORIDE 0.9% INJ 100 ML IV SCH ×3 (06:26→23:17)
--- NOTE | 2016-11-24 07:03 | HHI.CCPN ---
Subjective Remarks/Hospital Course Remarks/Hospital Course Patient is a 71-year-old female with history of pulmonary fibrosis, asthma, probable COPD on home oxygen who had a recent fall at home and sustained C7/ T1 fractures. She was evaluated by neurosurgery and conservatively managed and placed in a cervical collar. She was discharged home on 11/04/16. The pt developed inability to ambulate at home and also had urinary retention. Patient 's also noticed that she had been more confused. ER workup included a CT of the head which was negative, CT of the abdomen pelvis showed markedly distended bladder with mild to moderate hydronephrosis. Sanders catheter was inserted. Chest x-ray showed increasing bilateral infiltrates. Patient was admitted to the hospitalist service, on broad-spectrum antibiotics with Zosyn and vancomycin, breathing treatments. Neurology Dr. Xiong was also consulted Today was noted to have increasing shortness of breath today, tachypnea and hypoxia requiring a partial nonrebreather. Also noted to have A flutter with rapid ventricular response. Cardizem boluses 2 was given on Cardizem infusion was started. Because of her worsening respiratory failure patient was moved to the ICU. Critical care medicine consulted and I immediately evaluated the patient. She is in moderate distress on partial nonrebreather breathing 35-40/ m. Chest exam shows bilateral crackles and wheezes. I have added Solu-Medrol and scheduled breathing treatments and ordered BiPAP 10 over 5. I explained to the patient and the that patient may need endotracheal intubation and mechanical ventilation if she is not improving with BiPAP. 11/07 Patient is sedated with Diprivan and intubated. Afebrile. On Cardizem drip 5mg/hr, for MRI spine and CT thorax today. 11/08 Patient is sedated with Fentnayl and intubated. Afebrile. Renal function worse today with Cr: 1.65 from 1.15 11/09 Tmax 102.2. The patient's sputum culture grew preliminarily budding yeast with pseudohyphae. Diflucan initiated yesterday white count trending down. Lasix discontinued yesterday secondary to elevated creatinine level. 11/10 Afebrile. Able to wean oxygenation to FiO2 of 40% today. CPAP trials plan for today. The patient was noted to be hypernatremic free water flushes were added to her tube feedings. Creatinine slightly improved today. PT consulted Functional maintenance with specific requirements to be referred to neurosurgery for restrictions of any type of activities regarding functional maintenance. 11/11 Tmax 101.7. Patient continues to have persistent fevers, on antibiotic therapy, ID consulted,Dr Phan, appreciate recommendations. The patient has elevations in heart rate with activity/movement, received 2 doses of metoprolol with some diminution, from 160 to 90's yesterday. Overnight the patient's heart rate remained in the 120's. CPAP trials were initiated yesterday the patient was able to maintain the trial for approximately 4 hours. 11/12 Persistent fever last 24 hours, patient placed on a cooling blanket. Antibiotics adjusted per ID, Dr. Phan. Ultrasound Doppler obtained bilateral upper and lower extremities results superficial thrombus white distal cephalic vein. The patient was maintained on CPAP approximately 9 hours yesterday. Fentanyl infusion resumed today, patient complained of pain. Scheduled by mouth narcotics initiated. 11/13 CPAP trials lasted 11 hours. Patient continues to have fevers on a cooling blanket, Dr. Phan managing antibiotic regimen. Patient can continuously complain of pain, scheduled pain meds multimodal therapy approach initiated. 11/14 Was on CPAP 10/8 FiO2 55% for several hours and then terminated due to desaturation. WBC up to 22.9 without fever. No significant respiratory secretions. Had diarrhea yesterday but now RN reports no BM today after holding bowel regimen. Abdomen benign and tolerating tube feeds. Check for C diff if has a loose stool. Panculture sent. updated at bedside. Has no invasive lines. Subjective: 11/15 Diuresed net negative 1 L last shift following lasix. Creatinine downtrend to 1.19. Sodium down to 150. Received 6 am dose of Lasix. FiO2 weaned to 45%. WBC down 17. Afebrile. Placed on CPAP 5/5 and TV 550 and RSBI 30s. Sats 89-92% on 50%. 11/16 Tmax in 100.1. The patient continues today on CPAP trial PaO2 65 on FiO2 of 55%. The patient has been diuresed over the last several days, sodium is down trending now 145 tube feeds are off, will plan for a trial of extubation. As discussed with the Dr. Rodríguez that the patient possibly will need tracheostomy. Dr. Aguilera consulted for possible tracheostomy. 11/17 Afebrile. The patient was extubated yesterday afternoon .The patient tolerated BiPAP overnight, maintaining O2 sat 9294%, on FiO2 of 50%. Plan to transition to high flow nasal cannula if tolerated. 11/18 The patient tolerated-flow nasal cannula for the last 24 hours. Attempts at weaning FiO2 less than 65% unsuccessful at this point. O2 sat 8892%. Patient unable to perform incentive spirometry at this time. 11/19 The patient had respiratory decompensation this afternoon, requiring emergent intubation. The patient also underwent fiberoptic bronchoscopy which was unremarkable, and obtained BAL specimens as she continues to have fevers. 11/20 Tmax 100.0. The patient required emergent intubation yesterday afternoon secondary to hypoxemic/hypercapnic respiratory failure. A BAL was performed to obtain specimens secondary to elevation in white count. BAL revealed staph aureus. The process of weaning FiO2 is currently underway, FiO2 currently 65%. The patient complained of abdominal pain last evening, CT scan obtained. 11/21 This afternoon patient experiencing increased O2 requirements to maintain a PaO2 of 60. Chest x-ray reviewed noting possible pneumomediastinum. PEEP 5, stat CT chest pending. CT of the abdomen benign, patient tolerating tube feeds.Pt transported to CT scanner PEEP 8 required for adequate oxygenation. Returned from CT scanner, returned to PEEP of 5, FIO2 90%. 11/22 The patient was maintained on an FiO2 of 90% overnight, O2 sats remained 92 94%. This a.m. FiO2 was decreased to 85%, P/F Ratio 84. Repeat chest x-ray revealed stable pneumomediastinum CT surgery was consulted yesterday, appreciate recommendations. Bronchial washings resulted in mold, and moderate staph aureus growth. 11/23 Tmax 99.9. Bronchial washings, preliminary diagnosis Aspergillus. The patient was started on voriconazole. Repeat chest x-ray resulting decreasing air in mediastinum and less emphysematous changes and left chest. The patient continues on PRBC ventilator mode, FiO2 80% all night, unable to wean. 11/23 (evening) Difficult to ventilate, with high PEEP pressures. Emergency chest x-ray done stat showed a large right pneumothorax with tension. I prepared for emergency chest tube placement, while I was getting the equipment ready at the bedside, patient lost blood pressure became bradycardic and then developed asystolic arrest. ACLS protocol followed with immediate CPR, 2 rounds of epinephrine and 2 rounds of bicarbonate. At the same time I did emergency needle decompression of the right lateral chest and place an emergency 10 Faroese pigtail catheter. Once the pigtail catheter was to suction, patient regained pulse and blood pressure back. I also placed an emergency right femoral central line. Patient will be continued on Levophed infusion. 11/24 Persistent pneumothorax, 20 Faroese right chest tube placed this a.m. with reexpansion. The patient remains on Flolan, 100% FiO2 to maintain an O2 sat of 90%. The patient remains paralyzed and sedated, unable to place on PRVC ventilator settings. The patient is maintained on pressure control ventilator settings. Palliative care has been consulted to discuss goals of care with family. Objective Vital Signs Date Time Temp Pulse Resp B/P Pulse Ox O2 Delivery O2 Flow Rate FiO2 11/24/16 02:00 70 11/24/16 01:29 88 100 11/24/16 00:00 99.0 20 105/58 11/21/16 15:30 Mechanical Ventilator Intake and Output 11/23/16 11/23/16 11/24/16 08:00 16:00 00:00 Intake Total 1248 ml 933 ml 1052 ml Output Total 575 ml 800 ml 800 ml Balance 673 ml 133 ml 252 ml Result Diagram: 11/23/16 1901 11/23/16 190 Other Results Laboratory Tests Test 11/23/16 20:14 Blood Gas Puncture Site RT BRACHIAL Blood Gas Patient Temperature 98.6 Blood Gas HCO3 28 mmol/L (22-26) Blood Gas Base Excess 3.2 mmol/L (-2-2) Blood Gas Oxygen Saturation 91 % (90-100) Arterial Blood pH 7.36 (7.380-7.420) Arterial Blood Partial 52 mmHg (38-42) Pressure CO2 Arterial Blood Partial 76 mmHg Pressure O2 (61-120) Arterial Blood Oxygen Content 12.0 Vol % (12.0-20.0) Arterial Blood 1.2 % (0-4) Carboxyhemoglobin Arterial Blood Methemoglobin 1.2 % (0-2) Blood Gas Hemoglobin 9.3 G/DL (12.0-16.0) Oxygen Delivery Device VENTILATOR Blood Gas Ventilator Setting PCV Blood Gas Inspired Oxygen 100 % Imaging Last Impressions Chest X-Ray 11/22/16 0600 Signed Impressions: Service Date/Time: Tuesday, November 22, 2016 06:00 - CONCLUSION: 1. Stable chest x-ray with bilateral mid and lower lung zone airspace consolidation. 2. Stable pneumomediastinum and chest wall soft tissue air. No pneumothorax is appreciated. Jimmy Lara MD Chest CT 11/21/16 0000 Signed Impressions: Service Date/Time: Monday, November 21, 2016 16:14 - CONCLUSION: 1. Improvement of previous diffuse groundglass opacity. Probable developing fibrotic changes at the bases with some traction bronchiectasis. 2. Extensive air leak with pneumomediastinum and subcutaneous emphysema. There is also some loculated air at the right lung base that is new since the prior examination. This could represent a pneumatocele measuring 4.5 cm. Matt Wolf MD Abdomen X-Ray 11/19/16 0000 Signed Impressions: Service Date/Time: November 22:26 - CONCLUSION: Nasogastric tube has its tip near the gastric outlet. Nonobstructive bowel gas pattern. Jimmy Hoffmann MD Abdomen CT 11/19/16 0000 Signed Impressions: Service Date/Time: Sunday, November 20, 2016 04:24 - CONCLUSION: 1. No acute finding is identified within the abdomen on this noncontrast examination. 2. There is severe airspace consolidation/groundglass attenuation in both lung bases. Pneumomediastinum is present and there is a small right pneumothorax. Jimmy Lara MD Upper Extremity Ultrasound 11/11/16 0000 Signed Impressions: Service Date/Time: Friday, November 11, 2016 21:51 - CONCLUSION: 1. No evidence of DVT. 2. Focal superficial thrombosis involving the distal right cephalic vein. Roland Maier MD Lower Extremity Ultrasound 11/11/16 0000 Signed Impressions: Service Date/Time: Friday, November 11, 2016 21:22 - CONCLUSION: Negative exam with no evidence of deep venous thrombosis. Rex Corcoran MD Liver Ultrasound 11/09/16 0000 Signed Impressions: Service Date/Time: Wednesday, November 09, 2016 08:03 - CONCLUSION: 1. No acute abnormality. 2. Prior cholecystectomy. Common bile duct is within the normal range in terms of size for patient status post cholecystectomy. 3. Dystrophic calcification involving the right lobe of the liver. Scott Mittal Jr., MD Thoracic Spine MRI 11/07/16 0000 Signed Impressions: Service Date/Time: Monday, November 07, 2016 10:23 - CONCLUSION: 1. There is a fracture of the T1 vertebral body and T5 vertebral body. No significant height loss is present and there is no retropulsion of any fracture fragment. No canal stenosis is present. 2. Please refer to today's chest CT examination report for description of the pulmonary findings. Jimmy Lara MD Renal Ultrasound 11/06/16 0000 Signed Impressions: Service Date/Time: Sunday, November 06, 2016 22:24 - CONCLUSION: Probable complicated cyst midpole left kidney measuring 2.0 cm. Otherwise negative exam. No evidence of hydronephrosis. Scott Cantor MD Head CT 11/04/16 2326 Signed Impressions: Service Date/Time: Friday, November 04, 2016 23:45 - CONCLUSION: No acute intracranial findings. Jimmy Felton MD Abdomen/Pelvis CT 11/04/16 0000 Signed Impressions: Service Date/Time: Friday, November 04, 2016 23:48 - CONCLUSION: Markedly dilated urinary bladder with mild-moderate bilateral hydronephrosis Jimmy Felton MD Last Impressions Chest X-Ray 11/15/16 0000 Signed Impressions: Service Date/Time: Tuesday, November 15, 2016 11:02 - CONCLUSION: No significant interval change. Roland Maier MD Upper Extremity Ultrasound 11/11/16 0000 Signed Impressions: Service Date/Time: Friday, November 11, 2016 21:51 - CONCLUSION: 1. No evidence of DVT. 2. Focal superficial thrombosis involving the distal right cephalic vein. Roland Maier MD Lower Extremity Ultrasound 11/11/16 0000 Signed Impressions: Service Date/Time: Friday, November 11, 2016 21:22 - CONCLUSION: Negative exam with no evidence of deep venous thrombosis. Rex Corcoran MD Liver Ultrasound 11/09/16 0000 Signed Impressions: Service Date/Time: Wednesday, November 09, 2016 08:03 - CONCLUSION: 1. No acute abnormality. 2. Prior cholecystectomy. Common bile duct is within the normal range in terms of size for patient status post cholecystectomy. 3. Dystrophic calcification involving the right lobe of the liver. Scott Mittal Jr., MD Thoracic Spine MRI 11/07/16 0000 Signed Impressions: Service Date/Time: Monday, November 07, 2016 10:23 - CONCLUSION: 1. There is a fracture of the T1 vertebral body and T5 vertebral body. No significant height loss is present and there is no retropulsion of any fracture fragment. No canal stenosis is present. 2. Please refer to today's chest CT examination report for description of the pulmonary findings. Jimmy Lara MD Renal Ultrasound 11/06/16 0000 Signed Impressions: Service Date/Time: Sunday, November 06, 2016 22:24 - CONCLUSION: Probable complicated cyst midpole left kidney measuring 2.0 cm. Otherwise negative exam. No evidence of hydronephrosis. Scott Cantor MD Chest CT 11/06/16 0000 Signed Impressions: Service Date/Time: Monday, November 07, 2016 10:50 - CONCLUSION: Severe diffuse geographic areas of groundglass attenuation bilaterally with trace bilateral pleural effusions. The pattern is nonspecific but can be seen with infection and ARDS among other etiologies. Jimmy Lara MD Head CT 11/04/16 2326 Signed Impressions: Service Date/Time: Friday, November 04, 2016 23:45 - CONCLUSION: No acute intracranial findings. Jimmy Felton MD Abdomen/Pelvis CT 11/04/16 0000 Signed Impressions: Service Date/Time: Friday, November 04, 2016 23:48 - CONCLUSION: Markedly dilated urinary bladder with mild-moderate bilateral hydronephrosis Jimmy Felton MD Last Impressions Chest X-Ray 11/12/16 0600 Signed Impressions: Service Date/Time: October 02:40 - CONCLUSION: No significant interval change. Roland Maier MD Upper Extremity Ultrasound 11/11/16 0000 Signed Impressions: Service Date/Time: Friday, November 11, 2016 21:51 - CONCLUSION: 1. No evidence of DVT. 2. Focal superficial thrombosis involving the distal right cephalic vein. Roland Maier MD Lower Extremity Ultrasound 11/11/16 0000 Signed Impressions: Service Date/Time: Friday, November 11, 2016 21:22 - CONCLUSION: Negative exam with no evidence of deep venous thrombosis. Rex Corcoran MD Liver Ultrasound 11/09/16 0000 Signed Impressions: Service Date/Time: Wednesday, November 09, 2016 08:03 - CONCLUSION: 1. No acute abnormality. 2. Prior cholecystectomy. Common bile duct is within the normal range in terms of size for patient status post cholecystectomy. 3. Dystrophic calcification involving the right lobe of the liver. Scott Mittal Jr., MD Thoracic Spine MRI 11/07/16 0000 Signed Impressions: Service Date/Time: Monday, November 07, 2016 10:23 - CONCLUSION: 1. There is a fracture of the T1 vertebral body and T5 vertebral body. No significant height loss is present and there is no retropulsion of any fracture fragment. No canal stenosis is present. 2. Please refer to today's chest CT examination report for description of the pulmonary findings. Jimmy Lara MD Renal Ultrasound 11/06/16 0000 Signed Impressions: Service Date/Time: Sunday, November 06, 2016 22:24 - CONCLUSION: Probable complicated cyst midpole left kidney measuring 2.0 cm. Otherwise negative exam. No evidence of hydronephrosis. Scott Cantor MD Chest CT 11/06/16 0000 Signed Impressions: Service Date/Time: Monday, November 07, 2016 10:50 - CONCLUSION: Severe diffuse geographic areas of groundglass attenuation bilaterally with trace bilateral pleural effusions. The pattern is nonspecific but can be seen with infection and ARDS among other etiologies. Jimmy Lara MD Head CT 11/04/16 2326 Signed Impressions: Service Date/Time: Friday, November 04, 2016 23:45 - CONCLUSION: No acute intracranial findings. Jimmy Felton MD Abdomen/Pelvis CT 11/04/16 0000 Signed Impressions: Service Date/Time: Friday, November 04, 2016 23:48 - CONCLUSION: Markedly dilated urinary bladder with mild-moderate bilateral hydronephrosis Jimmy Felton MD Last Impressions Chest X-Ray 11/12/16 0600 Signed Impressions: Service Date/Time: October 02:40 - CONCLUSION: No significant interval change. Roland Maier MD Upper Extremity Ultrasound 11/11/16 0000 Signed Impressions: Service Date/Time: Friday, November 11, 2016 21:51 - CONCLUSION: 1. No evidence of DVT. 2. Focal superficial thrombosis involving the distal right cephalic vein. Roland Maier MD Lower Extremity Ultrasound 11/11/16 0000 Signed Impressions: Service Date/Time: Friday, November 11, 2016 21:22 - CONCLUSION: Negative exam with no evidence of deep venous thrombosis. Rex Corcoran MD Liver Ultrasound 11/09/16 0000 Signed Impressions: Service Date/Time: Wednesday, November 09, 2016 08:03 - CONCLUSION: 1. No acute abnormality. 2. Prior cholecystectomy. Common bile duct is within the normal range in terms of size for patient status post cholecystectomy. 3. Dystrophic calcification involving the right lobe of the liver. Scott Mittal Jr., MD Thoracic Spine MRI 11/07/16 0000 Signed Impressions: Service Date/Time: Monday, November 07, 2016 10:23 - CONCLUSION: 1. There is a fracture of the T1 vertebral body and T5 vertebral body. No significant height loss is present and there is no retropulsion of any fracture fragment. No canal stenosis is present. 2. Please refer to today's chest CT examination report for description of the pulmonary findings. Jimmy Lara MD Renal Ultrasound 11/06/16 0000 Signed Impressions: Service Date/Time: Sunday, November 06, 2016 22:24 - CONCLUSION: Probable complicated cyst midpole left kidney measuring 2.0 cm. Otherwise negative exam. No evidence of hydronephrosis. Scott Cantor MD Chest CT 11/06/16 0000 Signed Impressions: Service Date/Time: Monday, November 07, 2016 10:50 - CONCLUSION: Severe diffuse geographic areas of groundglass attenuation bilaterally with trace bilateral pleural effusions. The pattern is nonspecific but can be seen with infection and ARDS among other etiologies. Jimmy Lara MD Head CT 11/04/16 2326 Signed Impressions: Service Date/Time: Friday, November 04, 2016 23:45 - CONCLUSION: No acute intracranial findings. Jimmy Felton MD Abdomen/Pelvis CT 11/04/16 0000 Signed Impressions: Service Date/Time: Friday, November 04, 2016 23:48 - CONCLUSION: Markedly dilated urinary bladder with mild-moderate bilateral hydronephrosis Jimmy Felton MD Last Impressions Liver Ultrasound 11/09/16 0000 Signed Impressions: Service Date/Time: Wednesday, November 09, 2016 08:03 - CONCLUSION: 1. No acute abnormality. 2. Prior cholecystectomy. Common bile duct is within the normal range in terms of size for patient status post cholecystectomy. 3. Dystrophic calcification involving the right lobe of the liver. Scott Mittal Jr., MD Chest X-Ray 11/09/16 0000 Signed Impressions: Service Date/Time: Wednesday, November 09, 2016 03:36 - CONCLUSION: Mild improvement in the bilateral interstitial infiltrates. Roland Maier MD Thoracic Spine MRI 11/07/16 0000 Signed Impressions: Service Date/Time: Monday, November 07, 2016 10:23 - CONCLUSION: 1. There is a fracture of the T1 vertebral body and T5 vertebral body. No significant height loss is present and there is no retropulsion of any fracture fragment. No canal stenosis is present. 2. Please refer to today's chest CT examination report for description of the pulmonary findings. Jimmy Lara MD Renal Ultrasound 11/06/16 0000 Signed Impressions: Service Date/Time: Sunday, November 06, 2016 22:24 - CONCLUSION: Probable complicated cyst midpole left kidney measuring 2.0 cm. Otherwise negative exam. No evidence of hydronephrosis. Scott Cantor MD Chest CT 11/06/16 0000 Signed Impressions: Service Date/Time: Monday, November 07, 2016 10:50 - CONCLUSION: Severe diffuse geographic areas of groundglass attenuation bilaterally with trace bilateral pleural effusions. The pattern is nonspecific but can be seen with infection and ARDS among other etiologies. Jimmy Lara MD Head CT 11/04/16 2326 Signed Impressions: Service Date/Time: Friday, November 04, 2016 23:45 - CONCLUSION: No acute intracranial findings. Jimmy Felton MD Abdomen/Pelvis CT 11/04/16 0000 Signed Impressions: Service Date/Time: Friday, November 04, 2016 23:48 - CONCLUSION: Markedly dilated urinary bladder with mild-moderate bilateral hydronephrosis Jimmy Felton MD Last Impressions Chest X-Ray 11/07/16 0600 Signed Impressions: Service Date/Time: Monday, November 07, 2016 05:03 - CONCLUSION: Persistent and stable bilateral air space opacities in the medial lungs. Scott Cantor MD Thoracic Spine MRI 11/07/16 0000 Signed Impressions: Service Date/Time: Monday, November 07, 2016 10:23 - CONCLUSION: 1. There is a fracture of the T1 vertebral body and T5 vertebral body. No significant height loss is present and there is no retropulsion of any fracture fragment. No canal stenosis is present. 2. Please refer to today's chest CT examination report for description of the pulmonary findings. Jimmy Lara MD Renal Ultrasound 11/06/16 0000 Signed Impressions: Service Date/Time: Sunday, November 06, 2016 22:24 - CONCLUSION: Probable complicated cyst midpole left kidney measuring 2.0 cm. Otherwise negative exam. No evidence of hydronephrosis. Scott Cantor MD Chest CT 11/06/16 0000 Signed Impressions: Service Date/Time: Monday, November 07, 2016 10:50 - CONCLUSION: Severe diffuse geographic areas of groundglass attenuation bilaterally with trace bilateral pleural effusions. The pattern is nonspecific but can be seen with infection and ARDS among other etiologies. Jimmy Lara MD Head CT 11/04/16 2326 Signed Impressions: Service Date/Time: Friday, November 04, 2016 23:45 - CONCLUSION: No acute intracranial findings. Jimmy Felton MD Abdomen/Pelvis CT 11/04/16 0000 Signed Impressions: Service Date/Time: Friday, November 04, 2016 23:48 - CONCLUSION: Markedly dilated urinary bladder with mild-moderate bilateral hydronephrosis Jimmy Felton MD Objective Remarks GENERAL: Patient is 71 yo female, critically ill intubated, paralyzed, sedated. SKIN: Warm and dry. Multiple ecchymotic bruises HEAD: Normocephalic. EYES: No scleral icterus. No injection or drainage. NECK: Supple, trachea midline. No JVD or lymphadenopathy. [place] J C-collar in place . CARDIOVASCULAR: Regular rate and rhythm without murmurs, gallops, or rubs. RESPIRATORY: Breath sounds equal bilaterally , coarse breath sounds. Right 20 Faroese chest tube, to suction, on Flolan GASTROINTESTINAL: Abdomen soft, non-tender, nondistended. NG tube in situ MUSCULOSKELETAL: No cyanosis, 1-2+ edema, all extremities. NEURO: GCS3T Procedures Right 20F chest tube placement Vascular Central Line Catheter: Yes Date of Insertion: Nov 23, 2016 Side: Right Location: Femoral Reason for Continuation Vasoactive medication administration A/P Assessment and Plan NEURO: Acute metabolic encephalopathy-resolved C7-T1 fracture (T1 vertebral body comminuted fracture, bilateral C7 pedicle fracture extending to the right facet. Remote history of anterior C6-C7 and C4-C5 fusion with plate placement. Pain H/O Chronic pain syndrome Pain control -discontinue fentanyl patch,PO narcotics, fentanyl infusion at 200mcgs. -GCS3T, on fentanyl and Versed infusion for ventilator synchrony -CT head negative for acute findings. - 11/07 MRI spine: Fracture of the T1 vertebral body and T5 vertebral body. -Monitor neuromuscular blockade - maintain 2/4 twitch stimulation RESP: Acute hypoxemic / hypercapneic respiratory failure Pulmonary fibrosis/COPD exacerbation History of asthma Probable HCAP Pneumomediastinum Severe ARDS -Glidescope intubation 1 attempt 11/06 (Dr. Marquez) -Bronchodilators scheduled -Continue Solumedrol 60 mg IV every [address] Escalera, Pulmonary following -home med on hold: Spiriva 18 mcg inhaled daily<Singulair 10 po hs Budesonide 0.5 neb q12. - Pulmonary is following-Dr. Escalera -CT chest showed diffuse GGO b/l -Sputum culture11/08 -budding yeast with pseudohyphae -Sputum Culture 11/09-Rare gram negative rods -Discussed with , holding off on initiation of Xolair at this time due to concern for infection. -Extubated 11/16, placed on BiPAP 01/06 2 Reintubation 1 attempt (Dr Quintero), bronchial washings obtained, plan for tracheostomy next week 11/19-Bronchial washings-staph aureus, Aspergillus 11/21 CT Chest-traction bronchiectasis, subcutaneous emphysema loculated air right lung base 11/22 CXR-stable pneumomediastinum -General surgery consult for tracheostomy 11/23-CXR Large right tension pneumothorax, right 20 [place] chest tube to suction 11/23 sedation, paralysis, FiO2 1.0, Flolan 8 mL/hr CVS A Flutter with RVR-resolved Fluid overload-resolved HTN -Monitor HR and BP keep MAP>65mmHg -Echo revealed EF 45-50%, diffuse hypokinesis, cardiology is following, Dr. Barrera -11/24 Follow-up troponin -Hold all Anti HTN meds GI: Constipation-resolved Abdominal Pain Severe protein calorie malnutrition -Elevated LFT's, check US liver-no acute abnormality .dystrophic calcification right lobe, common bile duct within normal limits - IV Protonix for GI prophylaxis - TF-Glucerna 1.5 @ 50cc/hr (goal) - NGT tube-reinitiate tube feeds Glucerna 1.5 at 50 cc an hour per professional system administrator recommendation -Cdiff antigen 11/21- negative -11/19 CT- abdomen -no acute findings FEN/RENAL: Hydronephrosis from urinary retention/obstruction Hypernatremia-resolved -Monitor renal function , I/O's, BUN elevation may in part be secondary to steroids. -Renal US: Probable complicated cyst midpole left kidney measuring 2.0 cm. No evidence of hydronephrosis. - Lasix 20 mg BID held ID: Healthcare associated pneumonia multilobar Sepsis Persistent fevers Persistent Leukocytosis -Acetaminophen 650mg for temp greater than 101.0 -Sputum culture11/08 -budding yeast with pseudohyphae -Sputum Culture 11/09-Rare gram negative robin -Blood cultures11/08- NGTD -Abx per ID, Dr. Phan, management of antibiotic regimen (Micafungin, Voriconazole,Atrezonam). -Cdiff obtained 11/21. Pancultured 11/14, pending Microbiology: 11/05blood culture 2 setsno growth today 11/07blood cultureno growth today 11/08blood culture 2 setsno growth today 11/09pending culturenegative 11/14blood culture 2 sets pending 11/14sputum culturepending 11/14urinalysis without evidence of infection. -US11/12 bilateral upper and lower extremities-superficial nonocclusive thrombus right cephalic vein 11/19-bronchial washings- moderate staph aureus, Aspergillus -Cdiff negative -11/20- repeat blood and urine cultures-NGTD HEME: -Monitor CBC, CMP ENDO: Hypokalemia Hyperglycemia of critical illness -Electrolyte replacement per protocol. Sliding scale insulin if needed -On [place] Thyroid 90mg daily, TSH: 0.123 -Glucose monitoring every 6 hours per ICU protocol -Sliding-scale insulin MSK: Clinical illness polyneuropathy -PT-functional maintenance daily - Multi-Podus boots PROPH: -Bilateral lower extremity SCDs. Subcutaneous heparin 5000 q 8 for DVT prophylaxis. IV Protonix for GI prophylaxis LINES: -Right femoral central line 11/24, PIV's x 2 This is a 71-year-old critically ill female with severe ARDS,with concomitant pulmonary fibrosis, with recent pneumomediastinum, and recent spontaneous tension pneumothorax. The patient is not a candidate for prone positioning secondary to concomitant pulmonary disease processes. Prognosis is poor, palliative medicine consulted to discuss goals of care with family. I discussed the patient's status with Dr. Rodríguez () and the patient was made DNR status. Discussed the patient's status with . This patient remains critically ill with one or more organ systems which are or may become a threat to life. I have spent in excess of 54 minutes discontinuously in the care and management of this patient. This time is exclusive of procedures, and includes, but is not limited to, evaluation of the patient, review of the medical record, discussions with family, consultants, nursing staff, or respiratory therapy, and documentation in the medical record. Physician Megha Pastrana MD Nov 24, 2016 07:03
[2016-11-24] MEDS: CHLORHEXIDINE 0.12% (ORAL KIT) 15 ML CUP MT SCH ×2 (08:00→19:37)
[2016-11-24 08:26] LABS: BLOOD GAS BASE EXCESS 3.7 mmol/L (-2-2); BLOOD GAS HCO3 28 mmol/L (22-26); BLOOD GAS METHEMOGLOBIN 1.2 % (0-2); BLOOD GAS O2 HGB SATURATION 91 % (90-100); BLOOD GAS OXYGEN CONTENT 13.8 Vol % (12.0-20.0); BLOOD GAS PCO2 48 mmHg (38-42); BLOOD GAS PO2 71 mmHg (61-120); BLOOD GAS TOTAL HGB 10.8 G/DL (12.0-16.0); CRITICAL VALUE NO; OXYGEN DEVICE VENTILATOR; TEMP CORR TO 98.6
[2016-11-24 08:27] LABS: DRAW SITE RT RADIAL; FIO2 100 %; NUMBER OF ARTERIAL PUNCTURES 1; STAT NO; ULNAR PULSE PRESENT; VENT SETTINGS PC/AC
[2016-11-24] MEDS: HIGH DOSE INSULIN NOVOLOG SUPPLEMENTAL SCALE SQ SCH ×3 (08:32→18:00)
[2016-11-24 08:49] LABS: CALCIUM-PROTEIN CORRECTED 8.5 MG/DL (8.5-10.1); MAGNESIUM 2.3 MG/DL (1.5-2.5); POTASSIUM 3.8 MEQ/L (3.5-5.1); TOTAL BILIRUBIN ADULT 0.4 MG/DL (0.2-1.0)
[2016-11-24] MEDS: RESP: BUDESONIDE 0.5 MG/2 ML NEB NEB SCH ×2 (08:54→22:00)
[2016-11-24] MEDS: POLYETHYLENE GLYCOL 17 GM PKG PO SCH ×2 (09:00→19:36)
[2016-11-24] MEDS: SODIUM CHLORIDE 0.9% FLUSH 5 ML FLUSH FLUSH SCH ×2 (09:00→21:44)
[2016-11-24] MEDS: DOCUSATE SODIUM 100 MG CAP PO SCH ×2 (09:00→19:36)
[2016-11-24] MEDS: TIOTROPIUM BROMIDE 18 MCG INH INH SCH (09:00)
[2016-11-24 09:02] LABS: HEMATOCRIT 27.4 % (35.0-46.0); MEAN CELL VOLUME 99.4 FL (80.0-100.0); MEAN CORPUSCULAR HEMOGLOBIN 32.7 PG (27.0-34.0); MEAN CORPUSCULAR HGB CONC 32.9 % (32.0-36.0); PLATELET COUNT 96 TH/MM3 (150-450); RED BLOOD COUNT 2.76 MIL/MM3 (4.00-5.30); RED CELL DISTRIBUTION WIDTH 14.5 % (11.6-17.2); WHITE BLOOD COUNT 16.3 TH/MM3 (4.0-11.0)
--- NOTE | 2016-11-24 09:10 | MB ---
cc: TAHIR TRACEY MD DATE OF CONSULTATION: 11/23/2016 1946 HISTORY OF PRESENT ILLNESS A 71-year-old female with history of significant pulmonary fibrosis, asthma, probable COPD on home oxygen and recent fall at home, sustained a C7-T1 fracture, conservative treatment and a [place] collar, was initially discharged home in November 04, 2016. She had inability to ambulate at home, also had urinary retention and was more confused. She was presented back to the emergency department and had a negative CT head. She did have distended bladder on the CT of the abdomen with moderate hydronephrosis. Chest x-ray also showed bilateral pulmonary infiltrates. The patient then developed worsening respiratory failure, tachypnea requiring a non-rebreather, followed by intubation on 11/06/2016. Initially had been on BiPAP prior to the intubation. She has been intubated since 11/06/2016. Also had some hypernatremia. She has had C-PAP trial. She has had persistent fevers. Also had some superficial DVTs of the distal cephalic vein. She required diuresis. She was extubated on 11/17/2016, placed back on BiPAP overnight and had persistent respiratory decompensation requiring emergent reintubation on November 19, 2016. They did bronchial lavage which revealed staph aureus, also increasing requirements to maintain pO2 of 60. They did a chest x-ray showing a possible pneumomediastinum. We were consulted due to the pneumomediastinum probably related to barotrauma. On 11/23 she had some bronchial washings which showed some preliminary diagnosis of Aspergillus and was started on Voriconazole. The CT chest was evaluated by Dr. Tahir Tracey which showed extensive air leak with pneumomediastinum and subcutaneous emphysema. Also some loculated air in the right lung base representing a possible pneuomatocele measuring 4.5 cm. Recommendation at that time was to reduce her PEEP and reduce exposure to further barotrauma. The patient is currently on pressure control ventilation with FIO2 80%, +5 of PEEP. She still has some mild subcu emphysema right and left upper neck and chest area but according to the is much improved. PAST MEDICAL HISTORY Her past medical history is significant for: 1. Pulmonary fibrosis followed by Dr. Smart. 2. Gastroesophageal reflux disease. 3. Urinary retention. 4. C7, T1 fracture. PAST SURGICAL HISTORY 1. Tonsillectomy. 2. Cholecystectomy. 3. Lumbar spine. 4. Cervical spine surgery. 5. Hysterectomy. 6. Breast reduction. ALLERGIES BETADINE, POTASSIUM SORBATE. MEDICATIONS Home meds include: 1. Levocetirizine. 2. Zofran. 3. Budesonide nebulizers. 4. Prednisone. 5. Wellbutrin. 6. Meclizine. 7. Librax. 8. Xanax. 9. Temazepam. 10. Albuterol. 11. Estradiol patch. 12. Xolair. Current medications now include: 1. Voriconazole. 2. Fentanyl patch. 3. Solu-Medrol. 4. DuoNeb. 5. Micafungin. 6. Lasix. 7. Linezolid. 8. Azactam. 9. [place] thyroid. 10. Spireva. 11. Pulmicort. REVIEW OF SYSTEMS Unobtainable. PHYSICAL EXAMINATION VITAL SIGNS: Blood pressure 160/80, heart rate 90, O2 sat 90 on 80%. GENERAL: The patient is awake, somewhat restless, orally intubated. HEENT/NECK: She has a neck collar in place. Oral mucosa pink, moist. HEART: Heart sounds S1-S2. No audible murmurs, no rubs or gallops. LUNGS: Bilateral rhonchi. She still has some mild subcu emphysema in the upper chest. ABDOMEN: Abdomen is soft, slightly distended, nontender, hypoactive bowel sounds. EXTREMITIES: Reveal +1 edema. NEUROLOGIC: She follows simple commands. LABORATORY DATA Lab work shows hemoglobin 10.4, hematocrit 31, white cell count of 25, platelet count 150, sodium 153, potassium was 4.3, BUN 45, creatinine 1.18. Micro again bronchial washing, Aspergillus fumigatus. IMAGING STUDIES Chest x-ray today, overall improvement in the appearance of the chest, some persistent bibasilar areas of atelectasis, no pneumothorax. IMPRESSION 1. This is a 71-year-old female ventilatory respiratory failure with bilateral pneumonia, bronchial washing showing Aspergillus fumigatus on Voriconazole. ID is following. 2. This is her second intubation, still requiring high FIO2 and also on PEEP which was reduced. Will continue to follow, probable secondary to barotrauma. Apparently the patient will be getting a possible trache soon, if unable to wean and extubate. Recommend that once she has her trache placed for possible esophagram if needed if symptoms persist however, overall her chest x-ray has improved unless her pneumomediastinum is worsened. Further plan per Dr. Tracey. Dictated by: CHAPIN Vega Tahir NAVARRO/TLL /2:48 PM /9:09 AM
[2016-11-24 09:31] LABS: REVIEW FLAG AUTO DIFF
[2016-11-24 09:39] LABS: MAGNESIUM 2.2 MG/DL (1.5-2.5)
[2016-11-24] MEDS: FUROSEMIDE 40 MG/5 ML UNIT DOSE CUP TUBE SCH ×2 (09:54→18:00)
[2016-11-24] MEDS: CETIRIZINE HCL SYRUP 10 MG/10 ML UDC TUBE SCH (09:54)
--- NOTE | 2016-11-24 12:43 | HHI.IDPN ---
Note Infectious Disease Note Notes reviewed. Patient post cardiac arrest last evening and was resuscitated. Developed right pneumothorax. On vent. 100% FIO2. PEEP 22. Sat 87. On 1 mcg Levophed. Heavily sedated. Afebrile. little secretions. No blood. Has mediastinal air. Also Sub Q emphysema. WBC down. D/W RN. D/W at bedside. PAST MEDICAL HISTORY 1. Asthma. 2. Pulmonary fibrosis. 3. Gastroesophageal reflux disease. 4. Hemochromatosis. 5. Acid reflux. 6. Cholecystectomy. 7. Lumbar spine surgery. 8. Cervical spine surgery. 9. Hysterectomy. 10. Left parotid gland surgery. 11. Breast reduction. 12. Tonsillectomy. 13. Anterior cervical fusion of C6-C7. ALLERGIES 1. BETADINE. 2. IODINE. 3. THE PATIENT'S REPORTS SHE GETS UPSET STOMACH WITH CIPROFLOXACIN BUT THAT SHE IS UNABLE TO TOLERATE IV CIPROFLOXACIN. ANTIBIOTICS: Aztreonam. Zyvox. Micafungin. Voriconazole. OBJECTIVE: Vital Signs Date Time Temp Pulse Resp B/P Pulse Ox O2 Delivery O2 Flow Rate FiO2 11/24/16 12:11 87 100 11/24/16 11:27 98 100 11/24/16 10:00 62 11/24/16 08:59 91 100 11/24/16 08:00 62 11/24/16 08:00 100 11/24/16 08:00 97.7 62 24 106/57 92 11/24/16 06:00 64 11/24/16 06:00 90 100 11/24/16 06:00 64 11/24/16 05:00 72 11/24/16 04:00 97.3 66 24 105/68 93 11/24/16 04:00 100 11/24/16 04:00 66 11/24/16 02:00 70 11/24/16 01:29 88 100 11/24/16 00:00 100 11/24/16 00:00 60 11/24/16 00:00 99.0 60 20 105/58 95 11/23/16 22:00 68 11/23/16 20:00 98.6 74 20 105/56 94 11/23/16 20:00 74 11/23/16 20:00 100 11/23/16 19:40 90 100 11/23/16 18:03 86 100 11/23/16 18:00 101 11/23/16 16:12 88 85 11/23/16 16:00 90 11/23/16 16:00 93 11/23/16 16:00 98.1 93 28 164/74 89 11/23/16 14:00 78 11/23/16 11/23/16 11/24/16 15:00 23:00 07:00 Intake Total 933 ml 1052 ml 2084 ml Output Total 800 ml 800 ml 450 ml Balance 133 ml 252 ml 1634 ml IV Total 385 ml 869 ml 1628 ml Tube Feeding 368 ml 63 ml 336 ml Other 180 ml 120 ml 120 ml Output Urine Total 800 ml 800 ml 450 ml Chest Tube Drainage Total 0 ml 0 ml # Bowel Movements 2 2 2 Laboratory Tests Test 11/23/16 11/23/16 11/24/16 09:04 19:01 08:32 White Blood Count 25.2 TH/MM3 21.6 TH/MM3 16.3 TH/MM3 Red Blood Count 3.14 MIL/MM3 2.76 MIL/MM3 2.76 MIL/MM3 Hemoglobin 10.4 GM/DL 9.0 GM/DL 9.0 GM/DL Hematocrit 31.2 % 28.3 % 27.4 % Mean Corpuscular Volume 99.2 FL 102.5 FL 99.4 FL Mean Corpuscular Hemoglobin 33.1 PG 32.7 PG 32.7 PG Mean Corpuscular Hemoglobin 33.4 % 31.9 % 32.9 % Concent Red Cell Distribution Width 14.0 % 14.7 % 14.5 % Platelet Count 150 TH/MM3 131 TH/MM3 96 TH/MM3 Mean Platelet Volume 11.2 FL 10.9 FL 10.8 FL Neutrophils (%) (Auto) 96.5 % 94.5 % Lymphocytes (%) (Auto) 1.5 % 3.8 % Monocytes (%) (Auto) 1.7 % 1.3 % Eosinophils (%) (Auto) 0.0 % 0.0 % Basophils (%) (Auto) 0.3 % 0.4 % Neutrophils # (Auto) 24.4 TH/MM3 20.4 TH/MM3 Lymphocytes # (Auto) 0.4 TH/MM3 0.8 TH/MM3 Monocytes # (Auto) 0.4 TH/MM3 0.3 TH/MM3 Eosinophils # (Auto) 0.0 TH/MM3 0.0 TH/MM3 Basophils # (Auto) 0.1 TH/MM3 0.1 TH/MM3 CBC Comment DIFF FINAL AUTO DIFF Differential Comment FINAL DIFF MANUAL Differential Total Cells 100 Counted Neutrophils % (Manual) 90 % Band Neutrophils % 5 % Lymphocytes % 4 % Monocytes % 1 % Neutrophils # (Manual) 20.5 TH/MM3 Platelet Estimate LOW Platelet Morphology Comment NORMAL Laboratory Tests Test 11/23/16 11/23/16 11/24/16 11/24/16 09:04 19:01 06:35 08:32 Sodium Level 153 MEQ/L 154 MEQ/L 152 MEQ/L Potassium Level 4.3 MEQ/L 4.5 MEQ/L 3.8 MEQ/L Chloride Level 113 MEQ/L 111 MEQ/L 112 MEQ/L Carbon Dioxide Level 30.5 MEQ/L 29.1 MEQ/L 31.0 MEQ/L Anion Gap 10 MEQ/L 14 MEQ/L 9 MEQ/L Blood Urea Nitrogen 45 MG/DL 47 MG/DL 49 MG/DL Creatinine 1.18 MG/DL 1.53 MG/DL 1.16 MG/DL Estimat Glomerular Filtration 45 ML/MIN 34 ML/MIN 46 ML/MIN Rate Random Glucose 196 MG/DL 346 MG/DL 250 MG/DL Calcium Level 8.1 MG/DL 7.2 MG/DL 7.4 MG/DL Lactic Acid Level 7.3 mmol/L 3.5 mmol/L Protein Corrected Calcium 8.2 MG/DL 8.5 MG/DL Phosphorus Level 6.2 MG/DL 3.7 MG/DL 3.4 MG/DL Magnesium Level 2.5 MG/DL 2.3 MG/DL 2.2 MG/DL Total Bilirubin 0.4 MG/DL 0.4 MG/DL Aspartate Amino Transf 295 U/L 495 U/L (AST/SGOT) Alanine Aminotransferase 347 U/L 852 U/L (ALT/SGPT) Alkaline Phosphatase 117 U/L 123 U/L Total Creatine Kinase 84 U/L Troponin I 0.06 NG/ML 0.08 NG/ML Total Protein 5.2 GM/DL 5.2 GM/DL Albumin 1.6 GM/DL 1.6 GM/DL Microbiology Date/Time Procedure Status Source Growth 11/19/16 18:00 Gram Stain Received Sputum Endotracheal Pending 11/19/16 18:00 Sputum Culture Received Sputum Endotracheal Pending 11/19/16 18:00 Gram Stain - Final Resulted Bronchial Washings Other 11/19/16 18:00 Bronchial Culture - Preliminary Resulted Aspergillus Species 11/20/16 13:36 Aerobic Blood Culture - Preliminary Resulted Blood Peripheral NO GROWTH IN 2 DAYS 11/20/16 13:36 Anaerobic Blood Culture - Preliminary Resulted Blood Peripheral NO GROWTH IN 2 DAYS 11/20/16 13:41 Aerobic Blood Culture - Preliminary Resulted Blood Peripheral NO GROWTH IN 2 DAYS 11/20/16 13:41 Anaerobic Blood Culture - Preliminary Resulted Blood Peripheral NO GROWTH IN 2 DAYS 11/20/16 13:45 Urine Culture - Final Complete Urine Catheterized Urine NO GROWTH IN 48 HOURS. IMAGING: Chest X-Ray 11/24/16 0600 Signed Impressions: Service Date/Time: Thursday, November 24, 2016 04:30 - CONCLUSION: Large right pneumothorax. Findings discussed with Merari, the nurse taking care of the patient at 5:44am on 11/24/16. Jerman Dale MD Chest X-Ray 11/24/16 0000 Signed Impressions: Service Date/Time: Thursday, November 24, 2016 05:41 - CONCLUSION: Reexpansion of the right lung with chest tube in place. Jerman Dale MD Chest X-Ray 11/24/16 0000 Signed Impressions: Service Date/Time: Thursday, November 24, 2016 05:07 - CONCLUSION: Large right-sided pneumothorax with tension component suspected. Chest tube needs to be repositioned. Findings discussed with Merari the nurse taking care of the patient at 5:45 AM on August 24, 2017. Jerman Dale MD Chest X-Ray 11/23/16 0000 Signed Impressions: Service Date/Time: Wednesday, November 23, 2016 18:54 - CONCLUSION: 1. Placement of small caliber right chest tube with resolution of previous right pneumothorax. Matt Wolf MD Chest X-Ray 11/23/16 0000 Signed Impressions: Service Date/Time: Wednesday, November 23, 2016 18:09 - CONCLUSION: Large right-sided pneumothorax with collapse of the right lung and mediastinal shift from right to left. There is hazy opacity left lung. Endotracheal tube and nasogastric tube in satisfactory position. Critical value placed and technologist instructed to call floor immediately. Matt Wolf MD Chest X-Ray 11/23/16 0000 Signed Impressions: Service Date/Time: Wednesday, November 23, 2016 07:56 - CONCLUSION: 1. Overall improvement in the radiographic appearance of the chest. Persistent bibasilar areas of atelectasis/effusion are identified the airway appears to be better aerated when compared to prior. 2. Similarly, decreasing air in the mediastinum and soft tissues of the left chest. 3. Hyperinflation with no pneumothorax. Stable position of life support tubes. Cal Davis MD Chest X-Ray 11/22/16 0600 Signed Impressions: Service Date/Time: Tuesday, November 22, 2016 06:00 - CONCLUSION: 1. Stable chest x-ray with bilateral mid and lower lung zone airspace consolidation. 2. Stable pneumomediastinum and chest wall soft tissue air. No pneumothorax is appreciated. Jimmy Lara MD Chest X-Ray 11/21/16 0600 Signed Impressions: Service Date/Time: Monday, November 21, 2016 04:25 - CONCLUSION: 1. Persistent pneumomediastinum. No pneumothorax is identified. 2. Stable bilateral lower lung zone airspace consolidation. 3. New left axillary region soft tissue air from uncertain etiology. Jimmy Lara MD Chest CT 11/21/16 0000 Signed Impressions: Service Date/Time: Monday, November 21, 2016 16:14 - CONCLUSION: 1. Improvement of previous diffuse groundglass opacity. Probable developing fibrotic changes at the bases with some traction bronchiectasis. 2. Extensive air leak with pneumomediastinum and subcutaneous emphysema. There is also some loculated air at the right lung base that is new since the prior examination. This could represent a pneumatocele measuring 4.5 cm. Matt Wolf MD PHYSICAL EXAMINATION GENERAL: No acute distress. HEENT: No icterus. Dry mucosa. NECK: No adenopathy or swelling. Neck collar in place. LUNGS: Good air movement with slight rhonchi. R. Chest tube has little drainage. HEART: Regular S1 and S2. No audible murmurs. ABDOMEN: Decreased bowel sounds, soft. EXTREMITIES: Edema at hands. Pulses 2+ radial and dorsalis pedis. SKIN: No rash. NEUROLOGIC: Unable to assess. PSYCHIATRIC: Sedated. IMPRESSION 1. Fever. Temp improved initially after stopping beta lactam abx. ? Pneumonia. Staph in sputum culture. Periodic low grade fever. 2. Acute respiratory failure. Extubated. Reintubated. Has pneumothorax. 3. Leukocytosis. ? due to PNA. WBC Lower. Also has superficial distal r. cephalic vein thrombus. Also on Solumedrol. However still has abnormal CXR. ? result of pulmonary fibrosis. 4. Sepsis on admission indicated by elevated heart rate, elevated temperature, elevated white blood cell count. Source unclear but likely pulmonary. 5. Abnormal chest x-ray with bilateral interstitial infiltrates suggesting pneumonia versus COPD or fibrosis. Fungal pneumonia. Aspergillus fumigatus. Patient is very critically ill. RECOMMENDATIONS 1. Continue Aztreonam for gram negative pulmonary coverage. 2. Continue Micafungin for aspergillus. 3. Continue Voriconazole for aspergillus. 4. Stop Zyvox. Platelet count is low and no staph recovered on bronch culture. 5. Monitor white blood cell count and temp. 6. Monitor clinical status. D/W . Roberto Phan MD Nov 24, 2016 12:43
--- NOTE | 2016-11-24 13:12 | RADRPT ---
EXAM DATE/TIME: 11/24/2016 12:16 [facility] COMPARISON: CHEST SINGLE AP, November 24, 2016, 5:07. CHEST SINGLE AP, November 24, 2016, 5:41. INDICATIONS : Shortness of breath. Followup right pneumothorax. MEDICAL HISTORY : Hypertension. Cardiovascular disease. Chronic obstructive pulmonary SURGICAL HISTORY : None. ENCOUNTER: Subsequent ACUITY: 3 weeks PAIN SCORE: Non-responsive. LOCATION: Bilateral chest FINDINGS: 2 AP portable semierect views of the chest were obtained and now demonstrate a small to moderate righ t pneumothorax extending from the lung apex along the lateral aspect of the lung. This measures up to approximately 2 cm at the level of the lung apex and 1.1 cm long the mid right lateral chest wall. T he endotracheal tube remains in place with the tip approximately 2 cm above the dhara. A nasogastric tube is again seen coursing through the esophagus and into the stomach. Extensive subcutaneous emphy sema is noted bilaterally. The right-sided chest tube remains in place. There is new mild mediastinal shift now noted to the left. CONCLUSION: 1. Small to moderate right sided pneumothorax now noted with mediastinal shift to the left. 2. The right-sided chest tube remains in place. 3. Extensive subcutaneous emphysema is again noted bilaterally. Rex Corcoran MD on November 24, 2016 at 13:08 Board Certified Radiologist. This report was verified electronically.
--- NOTE | 2016-11-24 14:38 | PD.CONS ---
Consult Service Palliative Care . Consult Requested By Dr. Quintero . Primary Care Physician Kandy Smart MD . Reason for Consultation a. To assist with evaluation and management of symptoms including: dyspnea, pain. b. To assist medical decision maker(s) with: better understanding of current medical conditions; weighing benefits/burdens of medical treatment options; making medical treatment decisions. . HPI History of Present Illness Mrs. Rodríguez is a 71-year-old female with past medical history of pulmonary fibrosis, asthma, COPD on home oxygen, osteoarthritis and chronic low back pain with prior neck and lumbar spine surgeries. Patient was previously admitted following a fall at home on 11/01/16 - 11/04/16. She was found to have a C7 T1 fracture was evaluated by neurosurgery, Dr. Cirilo Bowden with recommendation for medical management with hard cervical collar continuos for 4 months with repeat imaging every 6 weeks. Patient and family declined home health services upon DC home. Patient presented to [facility] emergency department on 11/04/16 (it appears less than 12 hours after discharge) with pain in back and neck after a fall at home. Notes indicate spouse reported she became confused, was unable to ambulate with walker, noted urinary retention and fell twice. Patient reported left leg gave out, landed striking her right neck and lower back. Notes indicate no loss of consciousness no paresthesias or motor deficits. Pain was reported as moderate, constant, worse with movement and palpation. She was refusing her cervical collar per emergency room notes. Neurology, Dr. Xiong was consulted.. Neurosurgery, Dr. Bowden was consulted who recommended thoracic MRI, was unable to be obtained given worsening condition.. On 11/06/16 patient was found to have increasing shortness of breath, tachypnea and hypoxia requiring partial non-rebreather. She was also found to have atrial flutter with RVR. Been worsening respiratory status due to pulmonary edema and pneumonia she was transferred to ICU, critical care was consulted. Despite aggressive treatment her respiratory status continued to decline she was requiring BiPAP, later required intubation. Dr. Escalera, pulmonology was consulted for respiratory failure. Echocardiogram revealed ejection fraction 45 50%, extensive tachycardia rate 150 160, mild mitral and tricuspid regurgitation. Cardiology, Dr. Barrera was consulted for evaluation of atrial flutter/atrial fibrillation with RVR, controlled with Cardizem. High risk for anticoagulation was recommended even recent falls, aspirin 81 mg daily recommended. On 11/11/16 infectious disease, Dr. Phan was consulted for fever, leukocytosis, sepsis with antibiotic recommendations. Patient was medically extubated on 11/16/16. Unfortunately on 11/19/16 the patient had respiratory decompensation requiring emergent intubation, she underwent bronchoscopy which was unremarkable. Hospital course has been complicated by prolonged respiratory failure inability to wean from mechanical vent and persistent fevers. Cardiothoracic surgery, was consulted after chest x-ray revealed pneumomediastinum and subcutaneous emphysema. There was also chelated air in the right lung base representing possible no matter seal measuring 4.5 cm, recommendation at that time to reduce PEEP and reduce exposure to further barotrauma. Bronchial washings revealed Aspergillus Fumigatus. On 11/23/16 chest x-ray revealed large right tension pneumothorax. As the medical team was preparing for chest tube placement the patient became bradycardic, lost blood pressure and then developed asystolic arrest. ACLS protocol followed with immediate CPR, 2 rounds of epinephrine, 2 rounds of HCO3. During which time needle decompression of the right lateral chest and emergent pigtail catheter was placed. Right chest tube was placed with reexpansion on 11/24/16. She remains sedated and paralyzed on mechanical ventilation, FI 02 100%, unable to be weaned. Discussed with Dr. Marquez, overall prognosis appears poor. May not be able to wean from mech vent given underlying pulmonary fibrosis, COPD, asthma, aspergillus, ARDS, etc. Palliative care was consulted to assist with further clarification of treatment goals. . Function/Cognitive Trajectory Prior to hospitalization patient was independent for ADLs, ambulated with walker. Used oxygen at night and PRN for SOB. She was able to travel to [place] and [place] in the 4-6 months prior to admission. She was attending pulmonary rehab. Normal appetite. . Review of Systems ROS Limitations: Intubated Constitutional: COMPLAINS OF: Fatigue, Pain, Generalized weakness Respiratory: COMPLAINS OF: Cough, Sputum production, Shortness of breath Cardiovascular: COMPLAINS OF: Dyspnea on Exertion Musculoskeletal: COMPLAINS OF: Back pain, Neck pain, Decreased range of motion Neurologic: COMPLAINS OF: Poor Balance (recent falls) Psychiatric: COMPLAINS OF: Confusion (on day of admission) Past Family Social History Coded Allergies: Betadine (Verified Allergy, Mild, Rash, 11/04/16) Lactose (Verified Allergy, Mild, Diarrhea, 11/20/16) Uncoded Allergies: IODINE PAINT (Allergy, Severe, Rash, 06/30/12) Potassium sorbate (Adverse Reaction, Severe, 11/20/16) Severe stomach pains Past Medical History Asthma Pulmonary fibrosis GERD Hemochromatosis C7/T1 fractures . Past Surgical History Tonsillectomy Cholecystectomy Lumbar spine surgery Cervical spine surgery Hysterectomy Left salivary gland surgery Breast reduction . Reported Medications Reported Meds & Active Scripts Active Azithromycin 500 Mg Tab 500 Mg PO DAILY Ceftin (Cefuroxime Axetil) 500 Mg Tab 500 Mg PO BID Vicodin (Hydrocodone-Acetaminophen) 5-300 Mg Tab 2 Tab PO Q6H PRN Tramadol (Tramadol HCl) 50 Mg Tab 50 Mg PO Q6H PRN Reported Proair Hfa 8.5 GM Inh (Albuterol Sulfate) 90 Mcg/Act Aer 1 Puff INH Q4H PRN 108 mcg/actuation Meclizine 25 (Meclizine HCl) 25 Mg Tab 1 Tab PO TID Ondansetron HCl 4 Mg Tab 1 Tab PO DAILY Librax (Chlordiazepoxide/Clidinium) 5-2.5 Mg Cap 1 Cap PO DAILY PRN [oxygen] 1 Inhaler INH DAILY Levocetirizine 5 Mg Tab 5 Mg PO DAILY Warren Thyroid (Thyroid) 120 Mg Tab 120 Mg PO DAILY Alprazolam 0.5 Mg Tab 0.5 Mg PO BID PRN Budesonide Neb 1 Mg/2 Ml Neb 0.5 Mg NEB BID Bupropion HCl 100 Mg Tab 150 Mg PO BID Combivent Respimat Inh (Ipratropium-Albuterol Inh) 20-[address] Half-[address]/Act Aero 1 Puff INH BID Estradiol Patch 84 HR (Estradiol) 0.1 Mg/24 Hr Patch 1 Patch T-DERMAL Q7D PRN Remove old patch and discard when new patch being placed.Change same days each week. Montelukast (Montelukast Sodium) 10 Mg Tab 10 Mg PO HS Xolair Inj (Omalizumab) 150 Mg Vial 150 Mg SQ MONTHLY Prednisone 5 Mg Tab 5-10 Mg PO DAILY PRN Temazepam 15 Mg Cap 15 Mg PO HS PRN . Current Medications Medications (Trade) Dose Ordered Sig/Stephanie Route Start Time Stop Time Status Last Admin (NS Flush) 2 ml UNSCH PRN FLUSH 1/19/17 02:15 11/21/16 12:42 (NS Flush) 2 ml BID FLUSH 11/05/16 09:00 11/24/16 09:00 (Zofran Inj) 4 mg Q6H PRN IVP 11/05/16 02:15 (Heparin Inj) 5,000 units Q8H SQ 11/05/16 06:00 11/24/16 06:19 (Narcan Inj) 0.4 mg UNSCH PRN IV 11/05/16 02:15 (Proair Hfa Inh) 1 puff Q4H PRN INH 11/05/16 08:45 Hold 11/05/16 21:09 (Wellbutrin) 150 mg BID PO 11/05/16 09:00 Hold 11/20/16 09:00 (Singulair) 10 mg HS PO 11/05/16 21:00 11/23/16 20:59 Patient Own Medication PT OWN MED: (Levocetirizine 5 MG) DAILY PO 11/06/16 09:00 (Colace) 100 mg BID PO 11/05/16 09:00 11/22/16 20:47 (Catapres) 0.1 mg Q6H PRN PO 11/05/16 09:15 11/23/16 15:02 (Spiriva Inh) 18 mcg DAILY INH 11/05/16 11:00 11/19/16 09:23 (Proair Hfa Inh) 2 puff QID INH 11/05/16 13:00 Hold 11/06/16 12:44 Thyroid 90 mg 90 mg DAILY@06 PO 11/07/16 06:00 11/24/16 06:00 Potassium Chloride 100 ml @ 50 mls/hr Q2H PRN IV-CENTRAL 11/06/16 13:00 11/07/16 06:53 (KCl 20 Meq Premix Inj) 100 ml @ 50 mls/hr Q2H PRN IV 11/06/16 13:00 11/19/16 09:22 Potassium Chloride 40 meq 40 meq UNSCH PRN PO/TUBE 11/06/16 13:00 Potassium Chloride 100 ml @ 25 mls/hr UNSCH PRN IV-CENTRAL 11/06/16 13:00 Potassium Chloride 100 ml @ 50 mls/hr Q2H PRN IV 11/06/16 13:00 11/19/16 06:39 (Magnesium Sulfate Inj/NS Inj) 100 ml @ 50 mls/hr UNSCH PRN IV 11/06/16 13:00 Magnesium Oxide 800 mg 800 mg UNSCH PRN PO 11/06/16 13:00 (Magnesium Sulfate Inj/NS Inj) 100 ml @ 50 mls/hr UNSCH PRN IV 11/06/16 13:00 11/07/16 01:13 Potassium Phosphate 2000 mg 2,000 mg Q4H PRN PO 11/06/16 13:00 (Sodium Phosphate Inj/NS 250 ml Inj) 250 ml @ 42 mls/hr UNSCH PRN IV 11/06/16 13:00 11/08/16 09:00 (KCl 40 Meq/30 ml Liq) 40 meq UNSCH PRN PO/TUBE 11/06/16 13:00 Potassium Phosphate 2000 mg 2,000 mg UNSCH PRN PO/TUBE 11/06/16 13:00 (Potassium Phosphate Inj/NS 250 ml Inj) 260 ml @ 42 mls/hr UNSCH PRN IV 11/06/16 13:00 11/10/16 15:06 (Protonix Inj) 40 mg Q24H IV PUSH 11/06/16 15:00 11/23/16 13:26 (Peridex 0.12% Liq) 15 ml BID@08,20 MT 11/06/16 20:00 11/24/16 08:00 (Tylenol) 650 mg Q4H PRN PO 11/08/16 20:15 11/11/16 15:15 (Dulcolax Supp) 10 mg DAILY PRN RECTAL 11/10/16 11:30 11/10/16 12:44 (Pill Splitter) 1 ea UNSCH PRN OTHER 11/10/16 17:45 11/10/16 20:36 (Miralax) 17 gm BID PO 11/11/16 21:00 11/22/16 20:47 (Lopressor) 25 mg Q12HR PO 11/11/16 21:00 Hold 11/23/16 20:56 (D50w (Vial) Inj) 25 ml UNSCH PRN IV PUSH 11/12/16 10:30 (Glucagon Inj) 1 mg UNSCH PRN OTHER 11/12/16 10:30 (Cardizem) 60 mg Q6HR PO 11/12/16 12:00 Hold 11/24/16 06:20 ([place] 10-325 Mg) 1 tab Q6H PRN PO 11/13/16 17:30 Hold 11/23/16 13:27 (ZyrTEC LIQ) 10 mg DAILY TUBE 11/15/16 09:00 11/24/16 09:54 (Climara 0.1 Mg Patch.7d) 1 patch Q7D TD 11/15/16 15:00 11/22/16 15:29 Labetalol HCl 10 mg 10 mg Q4H PRN IV PUSH 11/15/16 11:00 11/23/16 13:41 Aztreonam 1000 mg/ Sodium Chloride 100 ml @ 200 mls/hr Q8H IV 11/18/16 15:00 11/24/16 06:26 (fentaNYL DRIP) 250 ml @ 0 mls/hr TITRATE IV 11/19/16 17:45 11/24/16 04:02 (Lasix Liq) 20 mg BID@09,18 TUBE 11/20/16 18:00 11/24/16 09:54 (NovoLOG SUPPLEMENTAL SCALE) 1 Q6HR SQ 11/20/16 18:00 11/24/16 11:48 Methylprednisolone Sodium Succinate 60 mg 60 mg Q8HR IV 11/21/16 22:00 11/24/16 06:19 Micafungin Sodium 100 mg/Sodium Chloride 100 ml @ 100 mls/hr Q24H IV 11/21/16 20:00 11/23/16 20:57 (Vfend Inj/NS Inj) 100 ml @ 100 mls/hr Q12H IV 11/23/16 16:00 11/24/16 04:26 Melatonin 10 mg 10 mg HS PRN PO 11/23/16 09:00 Midazolam HCl 100 ml @ 0 mls/hr TITRATE IV 11/23/16 17:45 11/24/16 00:59 Cisatracurium Besylate 100 mg/ Sodium Chloride 250 ml @ 0 mls/hr TITRATE IV 11/23/16 20:00 11/24/16 12:48 (Levophed-Dextrose Drip) 250 ml @ 0 mls/hr TITRATE IV 11/23/16 19:00 11/24/16 01:00 Terbutaline Sulfate 1 mg 1 mg UNSCH PRN SQ 11/23/16 19:00 (Flolan (30,000 Ng/ml) Neb/NS Inj) 100 ml @ 8 mls/hr Q8H NEB 11/24/16 02:00 11/24/16 07:11 . Family History Denies pertinent family history. Substance Use Tobacco: denies. Alcohol: drinks one glass of wine daily. Prescription med abuse: none. Illicits: denies. . Psychosocial History for 35 years. She and her have 7 children together. Many grandchildren. Very supportive family, but no family local. 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 She moved to [place] after mcc. Musician. . . Spiritual/Cultural Factors Scientologist adolfo. Supported by [facility]. Welcomes support, mandaeism has been visiting. Living Will: Copy in medical record Date completed: 10/02/04, updated HCS 10/15/2014. . Health Care Surrogate(s): Living will in chart dated 2013, names spouse Luis Enrique Rodríguez as primary designated healthcare surrogate and Mao Stevenson as alternate surrogate. . Documented care wishes: Living will indicates that should the patient have a terminal condition and her attending physician is determined that there will be no recovery from such condition and the is imminent she directs that the following NOT be done, given or administered: * CPR * nutritional support by other than oral means * hydration by other than oral means * antibiotics * transfusion of blood products * invasive procedures and diagnostic studies including but not limited to blood test spinal taps x-rays and scans. . Today's verbally stated goals: Patient incapacitated, uncertain if she will regain capacity. . Family/friends goals: NO CODE. Goals remain aggressive at this time short of NO CODE. . Ethical and Legal Issues Living will in chart dated 2013, names spouse Luis Enrique Rodríguez as primary designated healthcare surrogate and Mao Stevensno as alternate surrogate. . Physical Exam Vital Signs Date Time Temp Pulse Resp B/P Pulse Ox O2 Delivery O2 Flow Rate FiO2 11/24/16 12:11 87 100 11/24/16 12:00 97.9 67 24 104/56 86 11/24/16 12:00 67 11/24/16 12:00 100 11/24/16 11:27 98 100 11/24/16 10:00 62 11/24/16 08:59 91 100 11/24/16 08:00 62 11/24/16 08:00 100 11/24/16 08:00 97.7 62 24 106/57 92 11/24/16 06:00 64 11/24/16 06:00 90 100 11/24/16 06:00 64 11/24/16 05:00 72 11/24/16 04:00 97.3 66 24 105/68 93 11/24/16 04:00 100 11/24/16 04:00 66 11/24/16 02:00 70 11/24/16 01:29 88 100 11/24/16 00:00 100 11/24/16 00:00 60 11/24/16 00:00 99.0 60 20 105/58 95 11/23/16 22:00 68 11/23/16 20:00 98.6 74 20 105/56 94 11/23/16 20:00 74 11/23/16 20:00 100 11/23/16 19:40 90 100 11/23/16 18:03 86 100 11/23/16 18:00 101 11/23/16 16:12 88 85 11/23/16 16:00 90 11/23/16 16:00 93 11/23/16 16:00 98.1 93 28 164/74 89 11/23/16 14:00 78 11/23/16 11/24/16 19:00 07:00 Intake Total 933 ml 3136 ml Output Total 800 ml 1250 ml Balance 133 ml 1886 ml IV Total 385 ml 2497 ml Tube Feeding 368 ml 399 ml Other 180 ml 240 ml Output Urine Total 800 ml 1250 ml Chest Tube Drainage Total 0 ml # Bowel Movements 2 4 Exam CONSTITUTIONAL/GENERAL: This is an adequately nourished patient, sedated and paralyzed on vent. TUBES/LINES/DRAINS: ETT, NG tube on left, Floyd collar, bilateral soft wrist restraints, Sanders, SCDs SKIN: No jaundice, rashes, or lesions. Ecchymoses on upper extremities. No wounds seen anteriorly. Skin temperature appropriate. Not diaphoretic. HEAD: Atraumatic. Normocephalic. EYES: eyes closed. ENT: Unable to assess hearing. Nose without bleeding or purulent drainage. Difficult to visualize due to tubes. NECK: Floyd collar in place. CARDIOVASCULAR: Regular rate and rhythm without murmurs, gallops, or rubs. No JVD. Peripheral pulses symmetric. RESPIRATORY/CHEST: Symmetric, unlabored respirations on vent. Breath sounds diminished right >left. Chest tube x 2 on right. GASTROINTESTINAL: Abdomen soft, non-tender, nondistended. No guarding. Bowel sounds present. GENITOURINARY: Without palpable bladder distension. Sanders catheter in place. MUSCULOSKELETAL: Extremities with edema. No mottling or clubbing. NEUROLOGICAL: Sedated and paralyzed on vent. PSYCHIATRIC:Sedated and paralyzed on vent. . Diagnostic Tests Laboratory Laboratory Tests Test 11/21/16 11/22/16 11/22/16 11/22/16 15:24 04:13 05:30 09:44 Blood Gas Puncture Site RT RADIAL RT RADIAL RT RADIAL Blood Gas Patient Temperature 98.6 98.6 98.6 Blood Gas HCO3 29 mmol/L 28 mmol/L 28 mmol/L (22-26) (22-26) (22-26) Blood Gas Base Excess 5.2 mmol/L 3.6 mmol/L 4.1 mmol/L (-2-2) (-2-2) (-2-2) Blood Gas Oxygen Saturation 85 % (90-100) 89 % (90-100) 92 % (90-100) Arterial Blood pH 7.47 7.43 7.41 (7.380-7.420) (7.380-7.420) (7.380-7.420) Arterial Blood Partial 41 mmHg (38-42) 42 mmHg (38-42) 45 mmHg (38-42) Pressure CO2 Arterial Blood Partial 55 mmHg 65 mmHg 76 mmHg Pressure O2 (61-120) (61-120) (61-120) Arterial Blood Oxygen Content 13.6 Vol % 14.3 Vol % 14.1 Vol % (12.0-20.0) (12.0-20.0) (12.0-20.0) Arterial Blood 1.0 % (0-4) 1.0 % (0-4) 0.9 % (0-4) Carboxyhemoglobin Arterial Blood Methemoglobin 0.9 % (0-2) 1.1 % (0-2) 1.0 % (0-2) Blood Gas Hemoglobin 11.4 G/DL 11.4 G/DL 10.8 G/DL (12.0-16.0) (12.0-16.0) (12.0-16.0) Oxygen Delivery Device VENTILATOR VENTILATOR VENTILATOR Blood Gas Ventilator Setting PCAC PC/AC 22/+5/1.0/IP32 22/32IP/1.0IT/5 Blood Gas Inspired Oxygen 80 % 90 % 85 % Sodium Level 147 MEQ/L (136-145) Potassium Level 4.7 MEQ/L (3.5-5.1) Chloride Level 110 MEQ/L (98-107) Carbon Dioxide Level 29.2 MEQ/L (21.0-32.0) Anion Gap 8 MEQ/L (5-15) Blood Urea Nitrogen 48 MG/DL (7-18) Creatinine 1.23 MG/DL (0.50-1.00) Estimat Glomerular Filtration 43 ML/MIN (>89) Rate Random Glucose 234 MG/DL (74-106) Calcium Level 8.5 MG/DL (8.5-10.1) Total Bilirubin 0.4 MG/DL (0.2-1.0) Aspartate Amino Transf 42 U/L (15-37) (AST/SGOT) Alanine Aminotransferase 71 U/L (10-53) (ALT/SGPT) Alkaline Phosphatase 96 U/L (45-117) Total Protein 6.2 GM/DL (6.4-8.2) Albumin 1.9 GM/DL (3.4-5.0) Test 11/23/16 11/23/16 11/23/16 11/24/16 09:04 19:01 20:14 06:35 White Blood Count 25.2 TH/MM3 21.6 TH/MM3 (4.0-11.0) (4.0-11.0) Red Blood Count 3.14 MIL/MM3 2.76 MIL/MM3 (4.00-5.30) (4.00-5.30) Hemoglobin 10.4 GM/DL 9.0 GM/DL (11.6-15.3) (11.6-15.3) Hematocrit 31.2 % 28.3 % (35.0-46.0) (35.0-46.0) Mean Corpuscular Volume 99.2 FL 102.5 FL (80.0-100.0) (80.0-100.0) Mean Corpuscular Hemoglobin 33.1 PG 32.7 PG (27.0-34.0) (27.0-34.0) Mean Corpuscular Hemoglobin 33.4 % 31.9 % Concent (32.0-36.0) (32.0-36.0) Red Cell Distribution Width 14.0 % 14.7 % (11.6-17.2) (11.6-17.2) Platelet Count 150 TH/MM3 131 TH/MM3 (150-450) (150-450) Mean Platelet Volume 11.2 FL 10.9 FL (7.0-11.0) (7.0-11.0) Neutrophils (%) (Auto) 96.5 % 94.5 % (16.0-70.0) (16.0-70.0) Lymphocytes (%) (Auto) 1.5 % 3.8 % (9.0-44.0) (9.0-44.0) Monocytes (%) (Auto) 1.7 % (0.0-8.0) 1.3 % (0.0-8.0) Eosinophils (%) (Auto) 0.0 % (0.0-4.0) 0.0 % (0.0-4.0) Basophils (%) (Auto) 0.3 % (0.0-2.0) 0.4 % (0.0-2.0) Neutrophils # (Auto) 24.4 TH/MM3 20.4 TH/MM3 (1.8-7.7) (1.8-7.7) Lymphocytes # (Auto) 0.4 TH/MM3 0.8 TH/MM3 (1.0-4.8) (1.0-4.8) Monocytes # (Auto) 0.4 TH/MM3 0.3 TH/MM3 (0-0.9) (0-0.9) Eosinophils # (Auto) 0.0 TH/MM3 0.0 TH/MM3 (0-0.4) (0-0.4) Basophils # (Auto) 0.1 TH/MM3 0.1 TH/MM3 (0-0.2) (0-0.2) CBC Comment DIFF FINAL AUTO DIFF Differential Comment FINAL DIFF MANUAL Sodium Level 153 MEQ/L 154 MEQ/L 152 MEQ/L (136-145) (136-145) (136-145) Potassium Level 4.3 MEQ/L 4.5 MEQ/L 3.8 MEQ/L (3.5-5.1) (3.5-5.1) (3.5-5.1) Chloride Level 113 MEQ/L 111 MEQ/L 112 MEQ/L (98-107) (98-107) (98-107) Carbon Dioxide Level 30.5 MEQ/L 29.1 MEQ/L 31.0 MEQ/L (21.0-32.0) (21.0-32.0) (21.0-32.0) Anion Gap 10 MEQ/L (5-15) 14 MEQ/L (5-15) 9 MEQ/L (5-15) Blood Urea Nitrogen 45 MG/DL (7-18) 47 MG/DL (7-18) 49 MG/DL (7-18) Creatinine 1.18 MG/DL 1.53 MG/DL 1.16 MG/DL (0.50-1.00) (0.50-1.00) (0.50-1.00) Estimat Glomerular Filtration 45 ML/MIN (>89) 34 ML/MIN (>89) 46 ML/MIN (>89) Rate Random Glucose 196 MG/DL 346 MG/DL 250 MG/DL (74-106) (74-106) (74-106) Calcium Level 8.1 MG/DL 7.2 MG/DL 7.4 MG/DL (8.5-10.1) (8.5-10.1) (8.5-10.1) Differential Total Cells 100 Counted Neutrophils % (Manual) 90 % (16-70) Band Neutrophils % 5 % (0-6) Lymphocytes % 4 % (9-44) Monocytes % 1 % (0-8) Neutrophils # (Manual) 20.5 TH/MM3 (1.8-7.7) Platelet Estimate LOW (NORMAL) Platelet Morphology Comment NORMAL (NORMAL) Prothrombin Time 11.1 SEC (9.8-11.6) Prothromb Time International 1.0 RATIO Ratio Lactic Acid Level 7.3 mmol/L (0.4-2.0) Protein Corrected Calcium 8.2 MG/DL 8.5 MG/DL (8.5-10.1) (8.5-10.1) Phosphorus Level 6.2 MG/DL 3.7 MG/DL (2.5-4.9) (2.5-4.9) Magnesium Level 2.5 MG/DL 2.3 MG/DL (1.5-2.5) (1.5-2.5) Total Bilirubin 0.4 MG/DL 0.4 MG/DL (0.2-1.0) (0.2-1.0) Aspartate Amino Transf 295 U/L (15-37) 495 U/L (15-37) (AST/SGOT) Alanine Aminotransferase 347 U/L (10-53) 852 U/L (10-53) (ALT/SGPT) Alkaline Phosphatase 117 U/L 123 U/L (45-117) (45-117) Total Creatine Kinase 84 U/L (26-192) Troponin I 0.06 NG/ML 0.08 NG/ML (0.02-0.05) (0.02-0.05) Total Protein 5.2 GM/DL 5.2 GM/DL (6.4-8.2) (6.4-8.2) Albumin 1.6 GM/DL 1.6 GM/DL (3.4-5.0) (3.4-5.0) Blood Gas Puncture Site RT BRACHIAL Blood Gas Patient Temperature 98.6 Blood Gas HCO3 28 mmol/L (22-26) Blood Gas Base Excess 3.2 mmol/L (-2-2) Blood Gas Oxygen Saturation 91 % (90-100) Arterial Blood pH 7.36 (7.380-7.420) Arterial Blood Partial 52 mmHg (38-42) Pressure CO2 Arterial Blood Partial 76 mmHg Pressure O2 (61-120) Arterial Blood Oxygen Content 12.0 Vol % (12.0-20.0) Arterial Blood 1.2 % (0-4) Carboxyhemoglobin Arterial Blood Methemoglobin 1.2 % (0-2) Blood Gas Hemoglobin 9.3 G/DL (12.0-16.0) Oxygen Delivery Device VENTILATOR Blood Gas Ventilator Setting PCV Blood Gas Inspired Oxygen 100 % Test 11/24/16 11/24/16 08:12 08:32 Blood Gas Puncture Site RT RADIAL Blood Gas Patient Temperature 98.6 Blood Gas HCO3 28 mmol/L (22-26) Blood Gas Base Excess 3.7 mmol/L (-2-2) Blood Gas Oxygen Saturation 91 % (90-100) Arterial Blood pH 7.39 (7.380-7.420) Arterial Blood Partial 48 mmHg (38-42) Pressure CO2 Arterial Blood Partial 71 mmHg Pressure O2 (61-120) Arterial Blood Oxygen Content 13.8 Vol % (12.0-20.0) Arterial Blood 1.0 % (0-4) Carboxyhemoglobin Arterial Blood Methemoglobin 1.2 % (0-2) Blood Gas Hemoglobin 10.8 G/DL (12.0-16.0) Oxygen Delivery Device VENTILATOR Blood Gas Ventilator Setting PC/AC Blood Gas Inspired Oxygen 100 % White Blood Count 16.3 TH/MM3 (4.0-11.0) Red Blood Count 2.76 MIL/MM3 (4.00-5.30) Hemoglobin 9.0 GM/DL (11.6-15.3) Hematocrit 27.4 % (35.0-46.0) Mean Corpuscular Volume 99.4 FL (80.0-100.0) Mean Corpuscular Hemoglobin 32.7 PG (27.0-34.0) Mean Corpuscular Hemoglobin 32.9 % Concent (32.0-36.0) Red Cell Distribution Width 14.5 % (11.6-17.2) Platelet Count 96 TH/MM3 (150-450) Mean Platelet Volume 10.8 FL (7.0-11.0) Lactic Acid Level 3.5 mmol/L (0.4-2.0) Phosphorus Level 3.4 MG/DL (2.5-4.9) Magnesium Level 2.2 MG/DL (1.5-2.5) Result Diagram: 11/24/16 0832 11/24/16 0635 Microbiology Microbiology Date/Time Procedure Status Source Growth 11/20/16 13:45 Urine Culture - Final Complete Urine Catheterized Urine NO GROWTH IN 48 HOURS. 11/20/16 13:41 Aerobic Blood Culture - Preliminary Resulted Blood Peripheral NO GROWTH IN 4 DAYS 11/20/16 13:41 Anaerobic Blood Culture - Preliminary Resulted Blood Peripheral NO GROWTH IN 4 DAYS 11/19/16 18:00 Gram Stain - Final Complete Bronchial Washings Other 11/19/16 18:00 Bronchial Culture - Final Complete Aspergillus Fumigatus 11/19/16 18:00 Gram Stain Received Sputum Endotracheal Pending 11/19/16 18:00 Sputum Culture Received Sputum Endotracheal Pending . Imaging Last Impressions Chest X-Ray 11/24/16 0600 Signed Impressions: Service Date/Time: Thursday, November 24, 2016 04:30 - CONCLUSION: Large right pneumothorax. Findings discussed with Merari, the nurse taking care of the patient at 5:44am on 11/24/16. Jerman Dale MD Chest CT 11/21/16 0000 Signed Impressions: Service Date/Time: Monday, November 21, 2016 16:14 - CONCLUSION: 1. Improvement of previous diffuse groundglass opacity. Probable developing fibrotic changes at the bases with some traction bronchiectasis. 2. Extensive air leak with pneumomediastinum and subcutaneous emphysema. There is also some loculated air at the right lung base that is new since the prior examination. This could represent a pneumatocele measuring 4.5 cm. Matt Wolf MD Abdomen X-Ray 11/19/16 0000 Signed Impressions: Service Date/Time: November 22:26 - CONCLUSION: Nasogastric tube has its tip near the gastric outlet. Nonobstructive bowel gas pattern. Jimmy Hoffmann MD Abdomen CT 11/19/16 0000 Signed Impressions: Service Date/Time: Sunday, November 20, 2016 04:24 - CONCLUSION: 1. No acute finding is identified within the abdomen on this noncontrast examination. 2. There is severe airspace consolidation/groundglass attenuation in both lung bases. Pneumomediastinum is present and there is a small right pneumothorax. Jimmy Lara MD Upper Extremity Ultrasound 11/11/16 0000 Signed Impressions: Service Date/Time: Friday, November 11, 2016 21:51 - CONCLUSION: 1. No evidence of DVT. 2. Focal superficial thrombosis involving the distal right cephalic vein. Roland Maier MD Lower Extremity Ultrasound 11/11/16 0000 Signed Impressions: Service Date/Time: Friday, November 11, 2016 21:22 - CONCLUSION: Negative exam with no evidence of deep venous thrombosis. Rex Corcoran MD Liver Ultrasound 11/09/16 0000 Signed Impressions: Service Date/Time: Wednesday, November 09, 2016 08:03 - CONCLUSION: 1. No acute abnormality. 2. Prior cholecystectomy. Common bile duct is within the normal range in terms of size for patient status post cholecystectomy. 3. Dystrophic calcification involving the right lobe of the liver. Scott Mittal Jr., MD Thoracic Spine MRI 11/07/16 0000 Signed Impressions: Service Date/Time: Monday, November 07, 2016 10:23 - CONCLUSION: 1. There is a fracture of the T1 vertebral body and T5 vertebral body. No significant height loss is present and there is no retropulsion of any fracture fragment. No canal stenosis is present. 2. Please refer to today's chest CT examination report for description of the pulmonary findings. Jimmy Lara MD Renal Ultrasound 11/06/16 0000 Signed Impressions: Service Date/Time: Sunday, November 06, 2016 22:24 - CONCLUSION: Probable complicated cyst midpole left kidney measuring 2.0 cm. Otherwise negative exam. No evidence of hydronephrosis. Scott Cantor MD Head CT 11/04/16 2326 Signed Impressions: Service Date/Time: Friday, November 04, 2016 23:45 - CONCLUSION: No acute intracranial findings. Jimmy Felton MD Abdomen/Pelvis CT 11/04/16 0000 Signed Impressions: Service Date/Time: Friday, November 04, 2016 23:48 - CONCLUSION: Markedly dilated urinary bladder with mild-moderate bilateral hydronephrosis Jimmy Felton MD . Procedures * 11/24/16 chest tube placement * 11/23/16 right femoral central line placement * 11/23/16 emergency right pigtail catheter placement due to tension pneumothorax * 11/19/16 fiber-optic bronchoscopy * 11/19/16 Re- intubated * 11/16/16 - extubated * 11/06/16 intubated . Patient/Family Conference Present at Family Conference: Met with , Luis Enrique. Also present KUSHAL Conway at bedside. . Family Conference Time (mins): 60 Family Conference Location: [facility] Issues Discussed: * Palliative care role, purpose, approach * Additional medical, psychosocial, and spiritual history * Patients general health, functional status, and cognitive changes in the months leading up to the current hospitalization * Patient/family understanding of the current medical problems * Patient/family understanding of prognosis * Patients goals of care as best understood from advance directives and/or conversations and/or values * Current medical treatment options and benefits/burdens of those options * Likely scenarios comparing ongoing aggressive care with a transition to comfort measures only * Questions answered to the best of my ability * Palliative care contact information provided Goals remain aggressive at this time. has a good understanding of current medical condition, he remains hopeful for recovery at this time. We reviewed her Living Will and her endorses NO CODE. He appreciates visit. . Assessment and Plan Disease Oriented Problem List: (1) T1 vertebral fracture (2) C7 cervical fracture (3) Fall (4) Pneumonia (5) Sepsis (6) Atrial fibrillation and flutter (7) Fever (8) COPD (chronic obstructive pulmonary disease) (9) ARDS (adult respiratory distress syndrome) (10) Acute respiratory failure (11) Pulmonary fibrosis (12) Dyspnea (13) Leukocytosis (14) Severe protein-calorie malnutrition Symptom Scale: (1) Severe protein-calorie malnutrition 0-10 Scale: Unable to quantify Comment: Albumin 2.3 (2) Pain 0-10 Scale: Unable to quantify (3) Dyspnea 0-10 Scale: Unable to quantify Comment: on mech vent. Pertinent Non-Medical Issues Psychosocial: . Spiritual: Scientologist adolfo. Legal: Living will in chart dated 2013, names spouse Luis Enrique Rodríguez as primary designated healthcare surrogate and Mao Stevenson as alternate surrogate. Ethical issues impacting care: no known concerns at this time. . Important Contacts * Luis Enrique Rodríguez, spouse/[facility]: [phone] * Mao Stevenson, alternate [facility]: [phone] . Prognosis Discussed with Dr. Marquez, overall prognosis appears poor. May not be able to wean . Code Status: No Code Plan * Living will in chart dated 2013, names spouse Luis Enrique Rodríguez as primary designated healthcare surrogate and Mao Stevenson as alternate surrogate. * NO CODE * Spoke with . Introduced palliative care. Past medical, social and functional history reviewed. He desires NO CODE with continued aggressive care in hopes for clinical improvement. * Discussed with Dr. Marquez and nurse. * SYMPTOMS: dyspnea: labored respiration on mech vent. Sedated. Nimbex restarted per nurse. pain: potential sources include recent falls, spinal injury , chest tubes, intubation etc. sedated. * Palliative care will continue to follow. . Thank you for the opportunity to participate in the care of Ms. Rodríguez. SUHAS FUENTES Nov 24, 2016 14:21
--- NOTE | 2016-11-24 15:20 | RADRPT ---
EXAM DATE/TIME: 11/24/2016 14:56 [facility] COMPARISON: CHEST SINGLE AP, November 24, 2016, 12:16. INDICATIONS : Shortness of breath. Evaluate pneumothorax. MEDICAL HISTORY : Hypertension. Cardiovascular disease. Chronic obstructive pulmonary disease. SURGICAL HISTORY : None. ENCOUNTER: Subsequent ACUITY: 3 weeks PAIN SCORE: Non-responsive. LOCATION: Bilateral chest FINDINGS: Right-sided pneumothorax is definitely no better and may actually be slightly worse when compared to the prior. Thoracostomy tube is stable in position. Position of the heart is stable with some atelect atic changes in the lung base. Endotracheal tube is appropriately positioned above the dhara the vaishali ogastric tube entering the stomach and extending off the inferior aspect of the film. Extensive deep tissue and subcutaneous emphysematous changes around both hemithoraces is stable. CONCLUSION: 1. Right-sided pneumothorax is definitely no better and actually be slightly worsened compared to [place] or. Thoracostomy tube is stable in position. 2. Otherwise support tubes are also stable in position. 3. Stable atelectatic changes just above left hemidiaphragm with stable position of the heart and med iastinal structures. 4. Extensive deep tissue and subcutaneous emphysematous changes about the hemithoraces bilaterally. T hese are stable. Cal Davis MD on November 24, 2016 at 15:15 Board Certified Radiologist. This report was verified electronically.
[2016-11-24] MEDS: PANTOPRAZOLE SODIUM 40 MG VIAL IV PUSH SCH (16:48)
--- NOTE | 2016-11-24 17:06 | RADRPT ---
EXAM DATE/TIME: 11/24/2016 16:31 [facility] COMPARISON: CHEST SINGLE AP, November 24, 2016, 14:56. INDICATIONS : Followup right pneumothorax status post right side chest tube placement. MEDICAL HISTORY : Hypertension. Cardiovascular disease. Chronic obstructive pulmonary disease. SURGICAL HISTORY : None. ENCOUNTER: Subsequent ACUITY: 3 weeks PAIN SCORE: Non-responsive. LOCATION: Right chest. FINDINGS: A single AP portable semierect view of the chest was obtained and demonstrates interval placement of a small bore right-sided chest tube projected along the right lateral lung base. The right pneumothor ax has decreased in size with small apical residual. The large bore chest tube remains in place. Ther e is no mediastinal shift. The patient remains intubated with endotracheal tube tip 3 cm above the ca norah. A nasogastric tube is seen coursing through the esophagus into the stomach. Bilateral subcutane ous emphysema remains. There is apparent alveolar infiltrates in both lungs. CONCLUSION: Interval placement of a small bore right-sided chest tube with decrease in the size of the right pneu mothorax. Rex Corcoran MD on November 24, 2016 at 17:01 Board Certified Radiologist. This report was verified electronically.
--- NOTE | 2016-11-24 18:08 | PD.PROCEDR ---
Procedure Note Procedure Right pigtail catheter placement Patient was adequately positioned. Procedure was done emergently due to Asst. pneumothorax. Access needle placed through 5th ICS. Following that I introduced a guidewire through the needle, and needle was removed. Track was dilated, using Seldinger technique 10 Cymraes pigtail catheter was introduced into the pleural space, and was connected to the Vacutainer. Large air leak which gradually decreased. Hooked to -20 suction. Saturation improved Brinda Marquez MD Nov 24, 2016 18:08
[2016-11-24] MEDS: MICAFUNGIN INJ 100 MG in SODIUM CHLORIDE 0.9% INJ 100 ML IV SCH (19:34)
[2016-11-24] MEDS: MONTELUKAST SODIUM 10 MG TAB PO SCH (19:36)
[2016-11-24] MEDS: SODIUM CHLORIDE 0.9% FLUSH 5 ML FLUSH FLUSH PRN (21:43)
[2016-11-25] VITALS (19 sets, daily range): BP systolic 101–146; BP diastolic 59–79; PULSE 86–119; RESP 20–26; TEMP 97.8–99.1; O2SAT 30–99
[2016-11-25] MEDS: HIGH DOSE INSULIN NOVOLOG SUPPLEMENTAL SCALE SQ SCH ×3 (00:01→18:48)
[2016-11-25] MEDS: CISATRACURIUM INJ 100 MG in SODIUM CHLOR 0.9% 250 ML INJ 240 ML IV SCH ×4 (01:58→22:32)
[2016-11-25] MEDS: RESP: ALBUTEROL 2.5 MG/IPRATROPIUM 0.5 MG NEB (SCH) NEB ×4 (03:47→20:12)
[2016-11-25] MEDS: EPOPROSTENOL NEB SOLUTION 50 NG/KG/MIN 100 ML NEB SCH ×6 (04:38→20:59)
[2016-11-25] MEDS: VORICONAZOLE IV SCH ×2 (04:39→16:23)
[2016-11-25] MEDS: fentaNYL 2,500 MCG/NS 250 ML IV SCH ×2 (04:39→20:59)
[2016-11-25] MEDS: SODIUM CHLORIDE 0.9% IV SCH ×2 (04:39→16:23)
[2016-11-25 05:19] LABS: BLOOD GAS BASE EXCESS 0.4 mmol/L (-2-2); BLOOD GAS CARBOXYHEMOGLOBIN 0.8 % (0-4); BLOOD GAS HCO3 31 mmol/L (22-26); BLOOD GAS METHEMOGLOBIN 1.2 % (0-2); BLOOD GAS O2 HGB SATURATION 94 % (90-100); BLOOD GAS OXYGEN CONTENT 14.4 Vol % (12.0-20.0); BLOOD GAS PCO2 127 mmHg (38-42); BLOOD GAS PO2 109 mmHg (61-120); BLOOD GAS TOTAL HGB 10.7 G/DL (12.0-16.0); TEMP CORR TO 98.6
[2016-11-25 05:20] LABS: CRITICAL VALUE YES; FIO2 90 %; OXYGEN DEVICE VENTILATOR; VENT SETTINGS PC/AC
[2016-11-25 05:21] LABS: DRAW SITE RT RADIAL; NUMBER OF ARTERIAL PUNCTURES 1; STAT NO; ULNAR PULSE PRESENT
[2016-11-25] MEDS: THYROID 30 MG TAB PO SCH (06:05)
[2016-11-25] MEDS: methylPREDNISolone SOD SUCC 40 MG/1 ML VIAL IV SCH ×3 (06:05→21:33)
[2016-11-25] MEDS: HEPARIN SODIUM - SQ 10,000 UNITS/ML VIAL SQ SCH ×3 (06:05→21:33)
[2016-11-25] MEDS: AZTREONAM INJ 1,000 MG in SODIUM CHLORIDE 0.9% INJ 100 ML IV SCH ×3 (06:06→21:33)
[2016-11-25 06:15] LABS: HEMATOCRIT 31.9 % (35.0-46.0); MEAN CELL VOLUME 104.5 FL (80.0-100.0); MEAN CORPUSCULAR HEMOGLOBIN 32.8 PG (27.0-34.0); MEAN CORPUSCULAR HGB CONC 31.4 % (32.0-36.0); PLATELET COUNT 91 TH/MM3 (150-450); RED BLOOD COUNT 3.05 MIL/MM3 (4.00-5.30); RED CELL DISTRIBUTION WIDTH 15.4 % (11.6-17.2); WHITE BLOOD COUNT 19.4 TH/MM3 (4.0-11.0)
[2016-11-25 06:27] LABS: REVIEW FLAG FINAL
--- NOTE | 2016-11-25 06:28 | RADRPT ---
EXAM DATE/TIME: 11/25/2016 05:40 [facility] COMPARISON: CHEST SINGLE AP, November 24, 2016, 16:31. INDICATIONS : Shortness of breath. MEDICAL HISTORY : Hypertension. Cardiovascular disease. Chronic obstructive pulmonary disease. SURGICAL HISTORY : None. ENCOUNTER: Subsequent ACUITY: 3 weeks PAIN SCORE: Non-responsive. LOCATION: Bilateral chest FINDINGS: Endotracheal tube tip at the inferior margin of the clavicles. Subcutaneous emphysema is noted overly ing the chest. Right-sided chest tube is noted and a tiny right apical pneumothorax is present. A sma ll component at the right base is seen. Increasing consolidation bilaterally. CONCLUSION: Worsening appearance of the chest. Jerman Dale MD on November 25, 2016 at 6:26 Board Certified Radiologist. This report was verified electronically.
[2016-11-25 06:56] LABS: BLOOD GAS BASE EXCESS 1.9 mmol/L (-2-2); BLOOD GAS CARBOXYHEMOGLOBIN 0.8 % (0-4); BLOOD GAS HCO3 32 mmol/L (22-26); BLOOD GAS METHEMOGLOBIN 1.3 % (0-2); BLOOD GAS O2 HGB SATURATION 95 % (90-100); BLOOD GAS OXYGEN CONTENT 20.2 Vol % (12.0-20.0); BLOOD GAS PCO2 120 mmHg (38-42); BLOOD GAS PO2 115 mmHg (61-120); BLOOD GAS TOTAL HGB 15.1 G/DL (12.0-16.0); TEMP CORR TO 98.6
[2016-11-25 06:57] LABS: BICARBONATE 33.2 MEQ/L (21.0-32.0); MAGNESIUM 2.7 MG/DL (1.5-2.5); POTASSIUM 5.6 MEQ/L (3.5-5.1)
[2016-11-25 07:13] LABS: CRITICAL VALUE YES; OXYGEN DEVICE VENTILATOR
[2016-11-25 07:14] LABS: DRAW SITE RT RADIAL; FIO2 90 %; NUMBER OF ARTERIAL PUNCTURES 1; STAT NO; ULNAR PULSE PRESENT; VENT SETTINGS PC/AC
[2016-11-25] MEDS ORDERED: CALCIUM GLUCONATE INJ 2 GM in DEXTROSE 5% IN WATER 100ML INJ 100 ML IV ONE ×2 (07:15)
[2016-11-25] MEDS ORDERED: INSULIN HUMAN REGULAR 1,000 UNITS/10 ML VIAL IV PUSH ONE (07:15)
[2016-11-25] MEDS ORDERED: DEXTROSE 50% IN WATER 50 ML VIAL(D50) IV ONE (07:15)
[2016-11-25] MEDS: SODIUM POLYSTYRENE SULFONATE SUSP 15 GM/60 ML CUP PO/NG SCH ×3 (07:33→12:00)
[2016-11-25 08:12] LABS: BLOOD GAS BASE EXCESS 0.8 mmol/L (-2-2); BLOOD GAS CARBOXYHEMOGLOBIN 1.1 % (0-4); BLOOD GAS HCO3 29 mmol/L (22-26); BLOOD GAS METHEMOGLOBIN 1.1 % (0-2); BLOOD GAS O2 HGB SATURATION 91 % (90-100); BLOOD GAS OXYGEN CONTENT 13.1 Vol % (12.0-20.0); BLOOD GAS PCO2 92 mmHg (38-42); BLOOD GAS PO2 74 mmHg (61-120); BLOOD GAS TOTAL HGB 10.1 G/DL (12.0-16.0); CRITICAL VALUE YES; TEMP CORR TO 98.6
[2016-11-25 08:13] LABS: DRAW SITE LT RADIAL; FIO2 80 %; NUMBER OF ARTERIAL PUNCTURES 1; OXYGEN DEVICE SEE COMMENTS; STAT NO
[2016-11-25] MEDS: TIOTROPIUM BROMIDE 18 MCG INH INH SCH (08:32)
[2016-11-25] MEDS: SODIUM CHLORIDE 0.9% FLUSH 5 ML FLUSH FLUSH SCH ×2 (08:33→21:01)
[2016-11-25] MEDS: DOCUSATE SODIUM 100 MG CAP PO SCH ×2 (08:33→21:01)
[2016-11-25] MEDS: CETIRIZINE HCL SYRUP 10 MG/10 ML UDC TUBE SCH (08:33)
[2016-11-25] MEDS: FUROSEMIDE 40 MG/5 ML UNIT DOSE CUP TUBE SCH (08:33)
[2016-11-25] MEDS: POLYETHYLENE GLYCOL 17 GM PKG PO SCH ×2 (08:33→21:00)
[2016-11-25] MEDS: CHLORHEXIDINE 0.12% (ORAL KIT) 15 ML CUP MT SCH ×2 (08:33→21:01)
[2016-11-25] MEDS: LEVOCETIRIZINE 5 MG PO SCH (08:33)
--- NOTE | 2016-11-25 09:38 | HHI.CCPN ---
Subjective Remarks/Hospital Course Remarks/Hospital Course Patient is a 71-year-old female with history of pulmonary fibrosis, asthma, probable COPD on home oxygen who had a recent fall at home and sustained C7/ T1 fractures. She was evaluated by neurosurgery and conservatively managed and placed in a cervical collar. She was discharged home on 11/04/16. The pt developed inability to ambulate at home and also had urinary retention. Patient 's also noticed that she had been more confused. ER workup included a CT of the head which was negative, CT of the abdomen pelvis showed markedly distended bladder with mild to moderate hydronephrosis. Sanders catheter was inserted. Chest x-ray showed increasing bilateral infiltrates. Patient was admitted to the hospitalist service, on broad-spectrum antibiotics with Zosyn and vancomycin, breathing treatments. Neurology Dr. Xiong was also consulted Today was noted to have increasing shortness of breath today, tachypnea and hypoxia requiring a partial nonrebreather. Also noted to have A flutter with rapid ventricular response. Cardizem boluses 2 was given on Cardizem infusion was started. Because of her worsening respiratory failure patient was moved to the ICU. Critical care medicine consulted and I immediately evaluated the patient. She is in moderate distress on partial nonrebreather breathing 35-40/ m. Chest exam shows bilateral crackles and wheezes. I have added Solu-Medrol and scheduled breathing treatments and ordered BiPAP 10 over 5. I explained to the patient and the that patient may need endotracheal intubation and mechanical ventilation if she is not improving with BiPAP. 11/07 Patient is sedated with Diprivan and intubated. Afebrile. On Cardizem drip 5mg/hr, for MRI spine and CT thorax today. 11/08 Patient is sedated with Fentnayl and intubated. Afebrile. Renal function worse today with Cr: 1.65 from 1.15 11/09 Tmax 102.2. The patient's sputum culture grew preliminarily budding yeast with pseudohyphae. Diflucan initiated yesterday white count trending down. Lasix discontinued yesterday secondary to elevated creatinine level. 11/10 Afebrile. Able to wean oxygenation to FiO2 of 40% today. CPAP trials plan for today. The patient was noted to be hypernatremic free water flushes were added to her tube feedings. Creatinine slightly improved today. PT consulted Functional maintenance with specific requirements to be referred to neurosurgery for restrictions of any type of activities regarding functional maintenance. 11/11 Tmax 101.7. Patient continues to have persistent fevers, on antibiotic therapy, ID consulted,Dr Phan, appreciate recommendations. The patient has elevations in heart rate with activity/movement, received 2 doses of metoprolol with some diminution, from 160 to 90's yesterday. Overnight the patient's heart rate remained in the 120's. CPAP trials were initiated yesterday the patient was able to maintain the trial for approximately 4 hours. 11/12 Persistent fever last 24 hours, patient placed on a cooling blanket. Antibiotics adjusted per ID, Dr. Phan. Ultrasound Doppler obtained bilateral upper and lower extremities results superficial thrombus white distal cephalic vein. The patient was maintained on CPAP approximately 9 hours yesterday. Fentanyl infusion resumed today, patient complained of pain. Scheduled by mouth narcotics initiated. 11/13 CPAP trials lasted 11 hours. Patient continues to have fevers on a cooling blanket, Dr. Phan managing antibiotic regimen. Patient can continuously complain of pain, scheduled pain meds multimodal therapy approach initiated. 11/14 Was on CPAP 10/8 FiO2 55% for several hours and then terminated due to desaturation. WBC up to 22.9 without fever. No significant respiratory secretions. Had diarrhea yesterday but now RN reports no BM today after holding bowel regimen. Abdomen benign and tolerating tube feeds. Check for C diff if has a loose stool. Panculture sent. updated at bedside. Has no invasive lines. Subjective: 11/15 Diuresed net negative 1 L last shift following lasix. Creatinine downtrend to 1.19. Sodium down to 150. Received 6 am dose of Lasix. FiO2 weaned to 45%. WBC down 17. Afebrile. Placed on CPAP 5/5 and TV 550 and RSBI 30s. Sats 89-92% on 50%. 11/16 Tmax in 100.1. The patient continues today on CPAP trial PaO2 65 on FiO2 of 55%. The patient has been diuresed over the last several days, sodium is down trending now 145 tube feeds are off, will plan for a trial of extubation. As discussed with the Dr. Rodríguez that the patient possibly will need tracheostomy. Dr. Aguilera consulted for possible tracheostomy. 11/17 Afebrile. The patient was extubated yesterday afternoon .The patient tolerated BiPAP overnight, maintaining O2 sat 9294%, on FiO2 of 50%. Plan to transition to high flow nasal cannula if tolerated. 11/18 The patient tolerated-flow nasal cannula for the last 24 hours. Attempts at weaning FiO2 less than 65% unsuccessful at this point. O2 sat 8892%. Patient unable to perform incentive spirometry at this time. 11/19 The patient had respiratory decompensation this afternoon, requiring emergent intubation. The patient also underwent fiberoptic bronchoscopy which was unremarkable, and obtained BAL specimens as she continues to have fevers. 11/20 Tmax 100.0. The patient required emergent intubation yesterday afternoon secondary to hypoxemic/hypercapnic respiratory failure. A BAL was performed to obtain specimens secondary to elevation in white count. BAL revealed staph aureus. The process of weaning FiO2 is currently underway, FiO2 currently 65%. The patient complained of abdominal pain last evening, CT scan obtained. 11/21 This afternoon patient experiencing increased O2 requirements to maintain a PaO2 of 60. Chest x-ray reviewed noting possible pneumomediastinum. PEEP 5, stat CT chest pending. CT of the abdomen benign, patient tolerating tube feeds.Pt transported to CT scanner PEEP 8 required for adequate oxygenation. Returned from CT scanner, returned to PEEP of 5, FIO2 90%. 11/22 The patient was maintained on an FiO2 of 90% overnight, O2 sats remained 92 94%. This a.m. FiO2 was decreased to 85%, P/F Ratio 84. Repeat chest x-ray revealed stable pneumomediastinum CT surgery was consulted yesterday, appreciate recommendations. Bronchial washings resulted in mold, and moderate staph aureus growth. 11/23 Tmax 99.9. Bronchial washings, preliminary diagnosis Aspergillus. The patient was started on voriconazole. Repeat chest x-ray resulting decreasing air in mediastinum and less emphysematous changes and left chest. The patient continues on PRBC ventilator mode, FiO2 80% all night, unable to wean. 11/23 (evening) Difficult to ventilate, with high PEEP pressures. Emergency chest x-ray done stat showed a large right pneumothorax with tension. I prepared for emergency chest tube placement, while I was getting the equipment ready at the bedside, patient lost blood pressure became bradycardic and then developed asystolic arrest. ACLS protocol followed with immediate CPR, 2 rounds of epinephrine and 2 rounds of bicarbonate. At the same time I did emergency needle decompression of the right lateral chest and place an emergency 10 [place] pigtail catheter. Once the pigtail catheter was to suction, patient regained pulse and blood pressure back. I also placed an emergency right femoral central line. Patient will be continued on Levophed infusion. 11/24 Persistent pneumothorax, 20 [place] right chest tube placed this a.m. with reexpansion. The patient remains on Flolan, 100% FiO2 to maintain an O2 sat of 90%. The patient remains paralyzed and sedated, unable to place on PRVC ventilator settings. The patient is maintained on pressure control ventilator settings. Palliative care has been consulted to discuss goals of care with family. 11/25: Second chest tube placed yesterday afternoon for persistent right moderate sized pneumo. On pressure control vent settings with tidal volume 400 of 425. Severe CO2 retention with acidosis-pH 7 PCO2 120. I have increased inspiratory pressure to 22, increased rate to 24 from 20, and also reduced the PEEP to 5 from, 7 and reduced I time to 1 from 1.3. Chest x-ray shows severe bilateral infiltrates, and tiny apical pneumothorax Objective Vital Signs Date Time Temp Pulse Resp B/P Pulse Ox O2 Delivery O2 Flow Rate FiO2 11/25/16 08:16 95 80 11/25/16 06:00 92 11/25/16 04:00 98.9 20 124/66 11/21/16 15:30 Mechanical Ventilator Intake and Output 11/24/16 11/24/16 11/25/16 08:00 16:00 00:00 Intake Total 2084 ml 1222 ml 1576 ml Output Total 450 ml 600 ml 510 ml Balance 1634 ml 622 ml 1066 ml Result Diagram: 11/25/16 0550 11/25/16 0550 Other Results Laboratory Tests Test 11/25/16 11/25/16 11/25/16 05:01 06:44 08:02 Blood Gas Puncture Site RT RADIAL RT RADIAL LT RADIAL Blood Gas Patient Temperature 98.6 98.6 98.6 Blood Gas HCO3 31 mmol/L 32 mmol/L 29 mmol/L (22-26) (22-26) (22-26) Blood Gas Base Excess 0.4 mmol/L 1.9 mmol/L 0.8 mmol/L (-2-2) (-2-2) (-2-2) Blood Gas Oxygen Saturation 94 % (90-100) 95 % (90-100) 91 % (90-100) Arterial Blood pH 7.02 7.05 7.13 (7.380-7.420) (7.380-7.420) (7.380-7.420) Arterial Blood Partial 127 mmHg 120 mmHg 92 mmHg (38-42) Pressure CO2 (38-42) (38-42) Arterial Blood Partial 109 mmHg 115 mmHg 74 mmHg Pressure O2 (61-120) (61-120) (61-120) Arterial Blood Oxygen Content 14.4 Vol % 20.2 Vol % 13.1 Vol % (12.0-20.0) (12.0-20.0) (12.0-20.0) Arterial Blood 0.8 % (0-4) 0.8 % (0-4) 1.1 % (0-4) Carboxyhemoglobin Arterial Blood Methemoglobin 1.2 % (0-2) 1.3 % (0-2) 1.1 % (0-2) Blood Gas Hemoglobin 10.7 G/DL 15.1 G/DL 10.1 G/DL (12.0-16.0) (12.0-16.0) (12.0-16.0) Oxygen Delivery Device VENTILATOR VENTILATOR SEE COMMENTS Blood Gas Ventilator Setting PC/AC PC/AC Blood Gas Inspired Oxygen 90 % 90 % 80 % Imaging Last Impressions Chest X-Ray 11/22/16 0600 Signed Impressions: Service Date/Time: Tuesday, November 22, 2016 06:00 - CONCLUSION: 1. Stable chest x-ray with bilateral mid and lower lung zone airspace consolidation. 2. Stable pneumomediastinum and chest wall soft tissue air. No pneumothorax is appreciated. Jimmy Lara MD Chest CT 11/21/16 0000 Signed Impressions: Service Date/Time: Monday, November 21, 2016 16:14 - CONCLUSION: 1. Improvement of previous diffuse groundglass opacity. Probable developing fibrotic changes at the bases with some traction bronchiectasis. 2. Extensive air leak with pneumomediastinum and subcutaneous emphysema. There is also some loculated air at the right lung base that is new since the prior examination. This could represent a pneumatocele measuring 4.5 cm. Matt Wolf MD Abdomen X-Ray 11/19/16 Signed Impressions: Service Date/Time: November 22:26 - CONCLUSION: Nasogastric tube has its tip near the gastric outlet. Nonobstructive bowel gas pattern. Jimmy Hoffmann MD Abdomen CT 11/19/16 Signed Impressions: Service Date/Time: Sunday, November 20, 2016 04:24 - CONCLUSION: 1. No acute finding is identified within the abdomen on this noncontrast examination. 2. There is severe airspace consolidation/groundglass attenuation in both lung bases. Pneumomediastinum is present and there is a small right pneumothorax. Jimmy Lara MD Upper Extremity Ultrasound 11/11/16 Signed Impressions: Service Date/Time: Friday, November 11, 2016 21:51 - CONCLUSION: 1. No evidence of DVT. 2. Focal superficial thrombosis involving the distal right cephalic vein. Roland Maier MD Lower Extremity Ultrasound 11/11/16 Signed Impressions: Service Date/Time: Friday, November 11, 2016 21:22 - CONCLUSION: Negative exam with no evidence of deep venous thrombosis. Rex Corcoran MD Liver Ultrasound 11/09/16 Signed Impressions: Service Date/Time: Wednesday, November 09, 2016 08:03 - CONCLUSION: 1. No acute abnormality. 2. Prior cholecystectomy. Common bile duct is within the normal range in terms of size for patient status post cholecystectomy. 3. Dystrophic calcification involving the right lobe of the liver. Scott Mittal Jr., MD Thoracic Spine MRI 11/07/16 Signed Impressions: Service Date/Time: Monday, November 07, 2016 10:23 - CONCLUSION: 1. There is a fracture of the T1 vertebral body and T5 vertebral body. No significant height loss is present and there is no retropulsion of any fracture fragment. No canal stenosis is present. 2. Please refer to today's chest CT examination report for description of the pulmonary findings. Jimmy Lara MD Renal Ultrasound 11/06/16 0000 Signed Impressions: Service Date/Time: Sunday, November 06, 2016 22:24 - CONCLUSION: Probable complicated cyst midpole left kidney measuring 2.0 cm. Otherwise negative exam. No evidence of hydronephrosis. Scott Cantor MD Head CT 11/04/16 2326 Signed Impressions: Service Date/Time: Friday, November 04, 2016 23:45 - CONCLUSION: No acute intracranial findings. Jimmy Felton MD Abdomen/Pelvis CT 11/04/16 0000 Signed Impressions: Service Date/Time: Friday, November 04, 2016 23:48 - CONCLUSION: Markedly dilated urinary bladder with mild-moderate bilateral hydronephrosis Jimmy Felton MD Last Impressions Chest X-Ray 11/15/16 0000 Signed Impressions: Service Date/Time: Tuesday, November 15, 2016 11:02 - CONCLUSION: No significant interval change. Roland Maier MD Upper Extremity Ultrasound 11/11/16 0000 Signed Impressions: Service Date/Time: Friday, November 11, 2016 21:51 - CONCLUSION: 1. No evidence of DVT. 2. Focal superficial thrombosis involving the distal right cephalic vein. Roland Maier MD Lower Extremity Ultrasound 11/11/16 0000 Signed Impressions: Service Date/Time: Friday, November 11, 2016 21:22 - CONCLUSION: Negative exam with no evidence of deep venous thrombosis. Rex Corcoran MD Liver Ultrasound 11/09/16 0000 Signed Impressions: Service Date/Time: Wednesday, November 09, 2016 08:03 - CONCLUSION: 1. No acute abnormality. 2. Prior cholecystectomy. Common bile duct is within the normal range in terms of size for patient status post cholecystectomy. 3. Dystrophic calcification involving the right lobe of the liver. Scott Mittal Jr., MD Thoracic Spine MRI 11/07/16 0000 Signed Impressions: Service Date/Time: Monday, November 07, 2016 10:23 - CONCLUSION: 1. There is a fracture of the T1 vertebral body and T5 vertebral body. No significant height loss is present and there is no retropulsion of any fracture fragment. No canal stenosis is present. 2. Please refer to today's chest CT examination report for description of the pulmonary findings. Jimmy Lara MD Renal Ultrasound 11/06/16 0000 Signed Impressions: Service Date/Time: Sunday, November 06, 2016 22:24 - CONCLUSION: Probable complicated cyst midpole left kidney measuring 2.0 cm. Otherwise negative exam. No evidence of hydronephrosis. Scott Cantor MD Chest CT 11/06/16 0000 Signed Impressions: Service Date/Time: Monday, November 07, 2016 10:50 - CONCLUSION: Severe diffuse geographic areas of groundglass attenuation bilaterally with trace bilateral pleural effusions. The pattern is nonspecific but can be seen with infection and ARDS among other etiologies. Jimmy Lara MD Head CT 11/04/16 2326 Signed Impressions: Service Date/Time: Friday, November 04, 2016 23:45 - CONCLUSION: No acute intracranial findings. Jimmy Felton MD Abdomen/Pelvis CT 11/04/16 0000 Signed Impressions: Service Date/Time: Friday, November 04, 2016 23:48 - CONCLUSION: Markedly dilated urinary bladder with mild-moderate bilateral hydronephrosis Jimmy Felton MD Last Impressions Chest X-Ray 11/12/16 0600 Signed Impressions: Service Date/Time: October 02:40 - CONCLUSION: No significant interval change. Roland Maier MD Upper Extremity Ultrasound 11/11/16 0000 Signed Impressions: Service Date/Time: Friday, November 11, 2016 21:51 - CONCLUSION: 1. No evidence of DVT. 2. Focal superficial thrombosis involving the distal right cephalic vein. Roland Maier MD Lower Extremity Ultrasound 11/11/16 0000 Signed Impressions: Service Date/Time: Friday, November 11, 2016 21:22 - CONCLUSION: Negative exam with no evidence of deep venous thrombosis. Rex Corcoran MD Liver Ultrasound 11/09/16 0000 Signed Impressions: Service Date/Time: Wednesday, November 09, 2016 08:03 - CONCLUSION: 1. No acute abnormality. 2. Prior cholecystectomy. Common bile duct is within the normal range in terms of size for patient status post cholecystectomy. 3. Dystrophic calcification involving the right lobe of the liver. Scott Mittal Jr., MD Thoracic Spine MRI 11/07/16 0000 Signed Impressions: Service Date/Time: Monday, November 07, 2016 10:23 - CONCLUSION: 1. There is a fracture of the T1 vertebral body and T5 vertebral body. No significant height loss is present and there is no retropulsion of any fracture fragment. No canal stenosis is present. 2. Please refer to today's chest CT examination report for description of the pulmonary findings. Jimmy Lara MD Renal Ultrasound 1/20/17 0000 Signed Impressions: Service Date/Time: Sunday, November 06, 2016 22:24 - CONCLUSION: Probable complicated cyst midpole left kidney measuring 2.0 cm. Otherwise negative exam. No evidence of hydronephrosis. Scott Cantor MD Chest CT 11/06/16 0000 Signed Impressions: Service Date/Time: Monday, November 07, 2016 10:50 - CONCLUSION: Severe diffuse geographic areas of groundglass attenuation bilaterally with trace bilateral pleural effusions. The pattern is nonspecific but can be seen with infection and ARDS among other etiologies. Jimmy Lara MD Head CT 11/04/16 2326 Signed Impressions: Service Date/Time: Friday, November 04, 2016 23:45 - CONCLUSION: No acute intracranial findings. Jimmy Felton MD Abdomen/Pelvis CT 11/04/16 0000 Signed Impressions: Service Date/Time: Friday, November 04, 2016 23:48 - CONCLUSION: Markedly dilated urinary bladder with mild-moderate bilateral hydronephrosis Jimmy Felton MD Last Impressions Chest X-Ray 11/12/16 0600 Signed Impressions: Service Date/Time: October 02:40 - CONCLUSION: No significant interval change. Roland Maier MD Upper Extremity Ultrasound 11/11/16 0000 Signed Impressions: Service Date/Time: Friday, November 11, 2016 21:51 - CONCLUSION: 1. No evidence of DVT. 2. Focal superficial thrombosis involving the distal right cephalic vein. Roland Maier MD Lower Extremity Ultrasound 11/11/16 0000 Signed Impressions: Service Date/Time: Friday, November 11, 2016 21:22 - CONCLUSION: Negative exam with no evidence of deep venous thrombosis. Rex Corcoran MD Liver Ultrasound 11/09/16 0000 Signed Impressions: Service Date/Time: Wednesday, November 09, 2016 08:03 - CONCLUSION: 1. No acute abnormality. 2. Prior cholecystectomy. Common bile duct is within the normal range in terms of size for patient status post cholecystectomy. 3. Dystrophic calcification involving the right lobe of the liver. Scott Mittal Jr., MD Thoracic Spine MRI 11/07/16 0000 Signed Impressions: Service Date/Time: Monday, November 07, 2016 10:23 - CONCLUSION: 1. There is a fracture of the T1 vertebral body and T5 vertebral body. No significant height loss is present and there is no retropulsion of any fracture fragment. No canal stenosis is present. 2. Please refer to today's chest CT examination report for description of the pulmonary findings. Jimmy Lara MD Renal Ultrasound 11/06/16 0000 Signed Impressions: Service Date/Time: Sunday, November 06, 2016 22:24 - CONCLUSION: Probable complicated cyst midpole left kidney measuring 2.0 cm. Otherwise negative exam. No evidence of hydronephrosis. Scott Cantor MD Chest CT 11/06/16 0000 Signed Impressions: Service Date/Time: Monday, November 07, 2016 10:50 - CONCLUSION: Severe diffuse geographic areas of groundglass attenuation bilaterally with trace bilateral pleural effusions. The pattern is nonspecific but can be seen with infection and ARDS among other etiologies. Jimmy Lara MD Head CT 11/04/16 2326 Signed Impressions: Service Date/Time: Friday, November 04, 2016 23:45 - CONCLUSION: No acute intracranial findings. Jimmy Felton MD Abdomen/Pelvis CT 11/04/16 0000 Signed Impressions: Service Date/Time: Friday, November 04, 2016 23:48 - CONCLUSION: Markedly dilated urinary bladder with mild-moderate bilateral hydronephrosis Jimmy Felton MD Last Impressions Liver Ultrasound 11/09/16 0000 Signed Impressions: Service Date/Time: Wednesday, November 09, 2016 08:03 - CONCLUSION: 1. No acute abnormality. 2. Prior cholecystectomy. Common bile duct is within the normal range in terms of size for patient status post cholecystectomy. 3. Dystrophic calcification involving the right lobe of the liver. Scott Mittal Jr., MD Chest X-Ray 11/09/16 0000 Signed Impressions: Service Date/Time: Wednesday, November 09, 2016 03:36 - CONCLUSION: Mild improvement in the bilateral interstitial infiltrates. Roland Maier MD Thoracic Spine MRI 11/07/16 0000 Signed Impressions: Service Date/Time: Monday, November 07, 2016 10:23 - CONCLUSION: 1. There is a fracture of the T1 vertebral body and T5 vertebral body. No significant height loss is present and there is no retropulsion of any fracture fragment. No canal stenosis is present. 2. Please refer to today's chest CT examination report for description of the pulmonary findings. Jimmy Lara MD Renal Ultrasound 11/06/16 0000 Signed Impressions: Service Date/Time: Sunday, November 06, 2016 22:24 - CONCLUSION: Probable complicated cyst midpole left kidney measuring 2.0 cm. Otherwise negative exam. No evidence of hydronephrosis. Scott Cantor MD Chest CT 11/06/16 0000 Signed Impressions: Service Date/Time: Monday, November 07, 2016 10:50 - CONCLUSION: Severe diffuse geographic areas of groundglass attenuation bilaterally with trace bilateral pleural effusions. The pattern is nonspecific but can be seen with infection and ARDS among other etiologies. Jimmy aLra MD Head CT 11/04/16 2326 Signed Impressions: Service Date/Time: Friday, November 04, 2016 23:45 - CONCLUSION: No acute intracranial findings. Jimmy Felton MD Abdomen/Pelvis CT 11/04/16 0000 Signed Impressions: Service Date/Time: Friday, November 04, 2016 23:48 - CONCLUSION: Markedly dilated urinary bladder with mild-moderate bilateral hydronephrosis Jimmy Felton MD Last Impressions Chest X-Ray 11/07/16 0600 Signed Impressions: Service Date/Time: Monday, November 07, 2016 05:03 - CONCLUSION: Persistent and stable bilateral air space opacities in the medial lungs. Scott Cantor MD Thoracic Spine MRI 11/07/16 0000 Signed Impressions: Service Date/Time: Monday, November 07, 2016 10:23 - CONCLUSION: 1. There is a fracture of the T1 vertebral body and T5 vertebral body. No significant height loss is present and there is no retropulsion of any fracture fragment. No canal stenosis is present. 2. Please refer to today's chest CT examination report for description of the pulmonary findings. Jimmy Lara MD Renal Ultrasound 11/06/16 0000 Signed Impressions: Service Date/Time: Sunday, November 06, 2016 22:24 - CONCLUSION: Probable complicated cyst midpole left kidney measuring 2.0 cm. Otherwise negative exam. No evidence of hydronephrosis. Scott Cantor MD Chest CT 11/06/16 0000 Signed Impressions: Service Date/Time: Monday, November 07, 2016 10:50 - CONCLUSION: Severe diffuse geographic areas of groundglass attenuation bilaterally with trace bilateral pleural effusions. The pattern is nonspecific but can be seen with infection and ARDS among other etiologies. Jimmy Lara MD Head CT 11/04/16 2326 Signed Impressions: Service Date/Time: Friday, November 04, 2016 23:45 - CONCLUSION: No acute intracranial findings. Jimmy Felton MD Abdomen/Pelvis CT 11/04/16 0000 Signed Impressions: Service Date/Time: Friday, November 04, 2016 23:48 - CONCLUSION: Markedly dilated urinary bladder with mild-moderate bilateral hydronephrosis Jimmy Felton MD Objective Remarks GENERAL: Patient is 71 yo female, critically ill intubated, paralyzed, sedated. SKIN: Warm and dry. Multiple ecchymotic bruises HEAD: Normocephalic. EYES: No scleral icterus. No injection or drainage. NECK: Supple, trachea midline. No JVD or lymphadenopathy. Sanders J C-collar in place . CARDIOVASCULAR: Regular rate and rhythm without murmurs, gallops, or rubs. CHEST: Subcutaneous emphysema felt over right chest wall RESPIRATORY: Breath sounds equal bilaterally , coarse breath sounds and crackles bilaterally. Right 20 [place] chest tube, to suction -40, R 10 F pigtail to -20, on Flolan GASTROINTESTINAL: Abdomen soft, non-tender, nondistended. NG tube in situ MUSCULOSKELETAL: No cyanosis, 1-2+ edema, all extremities. NEURO: Neuromuscularly paralyzed Procedures Right 20F chest tube placement Urinary Catheter: Yes Assessment to: Continue Vascular Central Line Catheter: Yes Assessment to: Continue Date of Insertion: Nov 23, 2016 Side: Right Location: Femoral A/P Assessment and Plan NEURO: Acute metabolic encephalopathy-resolved C7-T1 fracture (T1 vertebral body comminuted fracture, bilateral C7 pedicle fracture extending to the right facet. Remote history of anterior C6-C7 and C4-C5 fusion with plate placement. H/O Chronic pain syndrome Pain control -continue fentanyl and Versed infusion for ventilator synchrony. NM paralysis with Nimbex DC today -CT head negative for acute findings. - 11/07 MRI spine: Fracture of the T1 vertebral body and T5 vertebral body. RESP: Acute hypoxemic / hypercapneic respiratory failure Pulmonary fibrosis/COPD exacerbation Sev ARDS Recurrent right sided pneumothorax Probable HCAP Pneumomediastinum History of asthma -Glidescope intubation 1 attempt 11/06 (Dr. Marquez) -Bronchodilators scheduled -Continue Solumedrol 60 mg IV every [address] Escalera, Pulmonary following -Continue Budesonide 0.5 neb q12. -PCV vent adjusted to improve ventilation and reduce CO2 retention -CT chest showed diffuse GGO b/l -Sputum culture 11/19/16 -Aspergillus -Previously Extubated 11/16, placed on BiPAP 01/06 11/19 Reintubation 1 attempt (Dr Quintero), bronchial washings obtained, plan for tracheostomy when stable 11/19-Bronchial washings- Aspergillus 11/21 CT Chest-traction bronchiectasis, subcutaneous emphysema loculated air right lung base 11/22 CXR-stable pneumomediastinum -General surgery consult for tracheostomy 11/23-CXR Large right tension pneumothorax, right 20 [place] chest tube to suction 11/23 sedation, paralysis, FiO2 1.0, Flolan 8 mL/hr 11/24 10 F pigtail placed for recurrent PTX CVS A Flutter with RVR-resolved Fluid overload-resolved Shock -Monitor HR and BP keep MAP>65mmHg -Echo revealed EF 45-50%, diffuse hypokinesis, cardiology is following, Dr. Barrera -11/24 Follow-up troponin -Off Levophed -Hold Lasix, 24-hour hydration with D5 W at 125 mL per hour to correct hypernatremia GI: Constipation-resolved Abdominal Pain Severe protein calorie malnutrition -Elevated LFT's, check US liver-no acute abnormality .dystrophic calcification right lobe, common bile duct within normal limits - IV Protonix for GI prophylaxis - TF-Glucerna 1.5 @ 50cc/hr (goal) - NGT tube-reinitiate tube feeds Glucerna 1.5 at 50 cc an hour per manager php recommendation -Cdiff antigen 11/21- negative -11/19 CT- abdomen -no acute findings FEN/RENAL: Hydronephrosis from urinary retention/obstruction Hypernatremia -Monitor renal function , I/O's, BUN elevation may in part be secondary to steroids. -Renal US: Probable complicated cyst midpole left kidney measuring 2.0 cm. No evidence of hydronephrosis. - -Hold Lasix, 24-hour hydration with D5 W at 125 mL per hour to correct hypernatremia ID: Healthcare associated pneumonia multilobar Sepsis Persistent fevers Persistent Leukocytosis -Acetaminophen 650mg for temp greater than 101.0 -Sputum culture11/08 -budding yeast with pseudohyphae -Sputum Culture 11/09-Rare gram negative robin -Blood cultures11/08- NGTD -Abx per ID, Dr. Phan, management of antibiotic regimen (Micafungin, Voriconazole,Atrezonam). -Cdiff obtained 11/21. Pancultured 11/14, pending Microbiology: 11/05blood culture 2 setsno growth today 11/07blood cultureno growth today 11/08blood culture 2 setsno growth today 11/09pending culturenegative 11/14blood culture 2 sets pending 11/14sputum culturepending 11/14urinalysis without evidence of infection. -US11/12 bilateral upper and lower extremities-superficial nonocclusive thrombus right cephalic vein 11/19-bronchial washings- moderate staph aureus, Aspergillus -Cdiff negative -11/20- repeat blood and urine cultures-NGTD HEME: -Monitor CBC, CMP ENDO: Hypokalemia Hyperglycemia of critical illness -Electrolyte replacement per protocol. Sliding scale insulin if needed -On Anthony Thyroid 90mg daily, TSH: 0.123 -Glucose monitoring every 6 hours per ICU protocol -Sliding-scale insulin MSK: Clinical illness polyneuropathy -PT-functional maintenance daily - Multi-Podus boots PROPH: -Bilateral lower extremity SCDs. Subcutaneous heparin 5000 q 8 for DVT prophylaxis. IV Protonix for GI prophylaxis LINES: -Right femoral central line 11/23-DC after placing R subclavian central line today , PIV's x 2 This is a 71-year-old critically ill female with severe ARDS, with concomitant pulmonary fibrosis, with recent pneumomediastinum, and recent spontaneous tension pneumothorax. The patient is not a candidate for prone positioning secondary to concomitant pulmonary disease processes. Prognosis is poor, palliative medicine consulted to discuss goals of care with family. I discussed the patient's status with Dr. Rodríguez () and the patient was made DNR status. Discussed the patient's status with . This patient remains critically ill with one or more organ systems which are or may become a threat to life. I have spent in excess of 50 minutes discontinuously in the care and management of this patient. This time is exclusive of procedures, and includes, but is not limited to, evaluation of the patient, review of the medical record, discussions with family, consultants, nursing staff, or respiratory therapy, and documentation in the medical record. Brinda Marquez MD Nov 25, 2016 09:38
[2016-11-25] MEDS: DEXTROSE 5% IN WATE 1000ML INJ 1,000 ML IV SCH ×3 (10:07→23:19)
[2016-11-25] MEDS: RESP: BUDESONIDE 0.5 MG/2 ML NEB NEB SCH ×2 (11:01→20:12)
--- NOTE | 2016-11-25 12:15 | PD.PROCEDR ---
Central Line Procedure REASON FOR PROCEDURE Central venous access PROCEDURE PERFORMED Central line placement: R subclavian central line CONSENT Informed consent for procedure was obtained and time out performed. The risks and benefits of the procedure were discussed to include but limited to bleeding , clot formation, infection, and even . ANESTHESIA Local injection of 1% Lidocaine DESCRIPTION OF THE PROCEDURE The patient was placed in supine, mild Trendelenburg position. The area was exposed and cleansed with ChloraPrep, times two. Large sterile drape was used to cover the patient, with the site exposed, under sterile conditions including cap, face mask, sterile gown, and sterile gloves. On single attempt, the introducer needle was inserted with negative pressure in syringe and venous flash was obtained. The guide wire was then advanced without any restriction and the needle was removed. The dilator was used without any complications. Using Seldinger technique the triple lumen 7F catheter was advanced over the guide wire to a depth of 17 centimeters. The guide wire was removed. All ports were aspirated with dark venous blood return and flushed easily with sterile saline. All ports were capped. Antibiotic disc was placed around central line at puncture site. The central line was secured to the skin with two interrupted 2.0 silk sutures. The area was bandaged with sterile see- through central line bandage. COMPLICATIONS: No apparent complications ESTIMATED BLOOD LOSS: Less than 1 cc. Brinda Marquez MD Nov 25, 2016 12:15
[2016-11-25 12:52] LABS: BLOOD GAS BASE EXCESS -0.1 mmol/L (-2-2); BLOOD GAS HCO3 28 mmol/L (22-26); BLOOD GAS METHEMOGLOBIN 2.1 % (0-2); BLOOD GAS O2 HGB SATURATION 87 % (90-100); BLOOD GAS OXYGEN CONTENT 14.8 Vol % (12.0-20.0); BLOOD GAS PCO2 81 mmHg (38-42); BLOOD GAS PO2 62 mmHG (61-120); BLOOD GAS TOTAL HGB 12.1 G/DL (12.0-16.0); TEMP CORR TO 98.6
[2016-11-25] MEDS ORDERED: METOPROLOL TARTRATE 5 MG/5 ML VIAL ONE (12:52)
[2016-11-25 12:53] LABS: CRITICAL VALUE YES; OXYGEN DEVICE VENTILATOR
[2016-11-25 12:54] LABS: DRAW SITE RT RADIAL; FIO2 90 %; NUMBER OF ARTERIAL PUNCTURES 1; STAT NO; ULNAR PULSE PRESENT; VENT SETTINGS PC/AC
[2016-11-25 12:58] LABS: POTASSIUM 4.2 MEQ/L (3.5-5.1)
[2016-11-25] MEDS ORDERED: DILTIAZEM HCL 25 MG/5 ML VIAL IVP ONE (13:30)
--- NOTE | 2016-11-25 13:40 | RADRPT ---
EXAM DATE/TIME: 11/25/2016 12:35 [facility] COMPARISON: CHEST SINGLE AP, November 25, 2016, 5:40. INDICATIONS : Central line placement. MEDICAL HISTORY : Hypertension. Cardiovascular disease. Chronic obstructive pulmonary SURGICAL HISTORY : None. ENCOUNTER: Subsequent ACUITY: 3 weeks PAIN SCORE: Non-responsive. LOCATION: Bilateral chest FINDINGS: Central line has been placed from the right with tip in the right atrium. ET tube, nasogastric tube and right chest tube are in good position. Moderate interstitial and alveolar opacities are seen in both lungs. CONCLUSION: Lines in good position without pneumothorax. Felice Malave MD FACR on November 25, 2016 at 13:13 Board Certified Radiologist. This report was verified electronically.
[2016-11-25] MEDS ORDERED: METOPROLOL TARTRATE 5 MG/5 ML VIAL IV PUSH ONE (13:45)
[2016-11-25] MEDS ORDERED: METOPROLOL TARTRATE 5 MG/5 ML VIAL IV PUSH PRN (13:45)
--- NOTE | 2016-11-25 13:46 | HHI.IDPN ---
Note Infectious Disease Note Notes reviewed. Ont the vent. Afib with rapid response. Sedated. Afebrile WBC elevated. Has mediastinal air. Also Sub Q emphysema. PAST MEDICAL HISTORY 1. Asthma. 2. Pulmonary fibrosis. 3. Gastroesophageal reflux disease. 4. Hemochromatosis. 5. Acid reflux. 6. Cholecystectomy. 7. Lumbar spine surgery. 8. Cervical spine surgery. 9. Hysterectomy. 10. Left parotid gland surgery. 11. Breast reduction. 12. Tonsillectomy. 13. Anterior cervical fusion of C6-C7. ALLERGIES 1. BETADINE. 2. IODINE. 3. THE PATIENT'S REPORTS SHE GETS UPSET STOMACH WITH CIPROFLOXACIN BUT THAT SHE IS UNABLE TO TOLERATE IV CIPROFLOXACIN. ANTIBIOTICS: Voriconazole. Aztreonam. Fluconazole. Micafungin. OBJECTIVE: Vital Signs Date Time Temp Pulse Resp B/P Pulse Ox O2 Delivery O2 Flow Rate FiO2 11/25/16 12:00 90 11/25/16 11:02 91 80 11/25/16 08:16 95 80 11/25/16 08:00 90 11/25/16 07:00 90 11/25/16 06:00 92 11/25/16 06:00 90 11/25/16 04:00 98.9 94 20 124/66 97 11/25/16 04:00 94 11/25/16 04:00 90 11/25/16 03:47 97 90 11/25/16 02:00 94 11/25/16 00:31 97 100 11/25/16 00:00 99.1 96 20 127/66 97 11/25/16 00:00 96 11/25/16 00:00 100 11/24/16 22:00 92 11/24/16 20:01 95 100 11/24/16 20:00 92 11/24/16 20:00 100 11/24/16 20:00 98.6 92 20 131/67 95 11/24/16 18:00 92 11/24/16 16:00 79 11/24/16 16:00 100 11/24/16 16:00 98.8 79 20 127/67 95 11/24/16 15:52 97 100 11/24/16 14:00 67 11/24/16 11/24/16 11/25/16 15:00 23:00 07:00 Intake Total 1222 ml 1576 ml 1620 ml Output Total 600 ml 510 ml 550 ml Balance 622 ml 1066 ml 1070 ml IV Total 735 ml 1133 ml 1151 ml Tube Feeding 337 ml 323 ml 349 ml Other 150 ml 120 ml 120 ml Output Urine Total 600 ml 500 ml 500 ml Chest Tube Drainage Total 10 ml 50 ml # Bowel Movements 2 2 1 Laboratory Tests Test 11/23/16 11/24/16 11/25/16 19:01 08:32 05:50 White Blood Count 21.6 TH/MM3 16.3 TH/MM3 19.4 TH/MM3 Red Blood Count 2.76 MIL/MM3 2.76 MIL/MM3 3.05 MIL/MM3 Hemoglobin 9.0 GM/DL 9.0 GM/DL 10.0 GM/DL Hematocrit 28.3 % 27.4 % 31.9 % Mean Corpuscular Volume 102.5 FL 99.4 FL 104.5 FL Mean Corpuscular Hemoglobin 32.7 PG 32.7 PG 32.8 PG Mean Corpuscular Hemoglobin 31.9 % 32.9 % 31.4 % Concent Red Cell Distribution Width 14.7 % 14.5 % 15.4 % Platelet Count 131 TH/MM3 96 TH/MM3 91 TH/MM3 Mean Platelet Volume 10.9 FL 10.8 FL 11.2 FL Neutrophils (%) (Auto) 94.5 % Lymphocytes (%) (Auto) 3.8 % Monocytes (%) (Auto) 1.3 % Eosinophils (%) (Auto) 0.0 % Basophils (%) (Auto) 0.4 % Neutrophils # (Auto) 20.4 TH/MM3 Lymphocytes # (Auto) 0.8 TH/MM3 Monocytes # (Auto) 0.3 TH/MM3 Eosinophils # (Auto) 0.0 TH/MM3 Basophils # (Auto) 0.1 TH/MM3 CBC Comment AUTO DIFF Differential Total Cells 100 Counted Neutrophils % (Manual) 90 % Band Neutrophils % 5 % Lymphocytes % 4 % Monocytes % 1 % Neutrophils # (Manual) 20.5 TH/MM3 Differential Comment FINAL DIFF MANUAL Platelet Estimate LOW Platelet Morphology Comment NORMAL Laboratory Tests Test 11/23/16 11/24/16 11/24/16 11/25/16 19:01 06:35 08:32 05:50 Sodium Level 154 MEQ/L 152 MEQ/L 156 MEQ/L Potassium Level 4.5 MEQ/L 3.8 MEQ/L 5.6 MEQ/L Chloride Level 111 MEQ/L 112 MEQ/L 117 MEQ/L Carbon Dioxide Level 29.1 MEQ/L 31.0 MEQ/L 33.2 MEQ/L Anion Gap 14 MEQ/L 9 MEQ/L 6 MEQ/L Blood Urea Nitrogen 47 MG/DL 49 MG/DL 57 MG/DL Creatinine 1.53 MG/DL 1.16 MG/DL 1.39 MG/DL Estimat Glomerular Filtration 34 ML/MIN 46 ML/MIN 37 ML/MIN Rate Random Glucose 346 MG/DL 250 MG/DL 160 MG/DL Lactic Acid Level 7.3 mmol/L 3.5 mmol/L Calcium Level 7.2 MG/DL 7.4 MG/DL 8.1 MG/DL Protein Corrected Calcium 8.2 MG/DL 8.5 MG/DL Phosphorus Level 6.2 MG/DL 3.7 MG/DL 3.4 MG/DL 6.9 MG/DL Magnesium Level 2.5 MG/DL 2.3 MG/DL 2.2 MG/DL 2.7 MG/DL Total Bilirubin 0.4 MG/DL 0.4 MG/DL Aspartate Amino Transf 295 U/L 495 U/L (AST/SGOT) Alanine Aminotransferase 347 U/L 852 U/L (ALT/SGPT) Alkaline Phosphatase 117 U/L 123 U/L Total Creatine Kinase 84 U/L Troponin I 0.06 NG/ML 0.08 NG/ML Total Protein 5.2 GM/DL 5.2 GM/DL Albumin 1.6 GM/DL 1.6 GM/DL Test 11/25/16 12:05 Sodium Level 156 MEQ/L Potassium Level 4.2 MEQ/L Chloride Level 116 MEQ/L Carbon Dioxide Level 31.0 MEQ/L Anion Gap 9 MEQ/L Blood Urea Nitrogen 59 MG/DL Creatinine 1.44 MG/DL Estimat Glomerular Filtration 36 ML/MIN Rate Random Glucose 307 MG/DL Calcium Level 8.0 MG/DL Microbiology Date/Time Procedure Status Source Growth 11/19/16 18:00 Gram Stain Received Sputum Endotracheal Pending 11/19/16 18:00 Sputum Culture Received Sputum Endotracheal Pending 11/19/16 18:00 Gram Stain - Final Resulted Bronchial Washings Other 11/19/16 18:00 Bronchial Culture - Preliminary Resulted Aspergillus Species 11/20/16 13:36 Aerobic Blood Culture - Preliminary Resulted Blood Peripheral NO GROWTH IN 2 DAYS 11/20/16 13:36 Anaerobic Blood Culture - Preliminary Resulted Blood Peripheral NO GROWTH IN 2 DAYS 11/20/16 13:41 Aerobic Blood Culture - Preliminary Resulted Blood Peripheral NO GROWTH IN 2 DAYS 11/20/16 13:41 Anaerobic Blood Culture - Preliminary Resulted Blood Peripheral NO GROWTH IN 2 DAYS 11/20/16 13:45 Urine Culture - Final Complete Urine Catheterized Urine NO GROWTH IN 48 HOURS. IMAGING: Chest X-Ray 11/25/16 0600 Signed Impressions: Service Date/Time: Friday, November 25, 2016 05:40 - CONCLUSION: Worsening appearance of the chest. Jerman Dale MD Chest X-Ray 11/24/16 1500 Signed Impressions: Service Date/Time: Thursday, November 24, 2016 14:56 - CONCLUSION: 1. Right-sided pneumothorax is definitely no better and actually be slightly worsened compared to prior. Thoracostomy tube is stable in position. 2. Otherwise support tubes are also stable in position. 3. Stable atelectatic changes just above left hemidiaphragm with stable position of the heart and mediastinal structures. 4. Extensive deep tissue and subcutaneous emphysematous changes about the hemithoraces bilaterally. These are stable. Cal Davis MD Chest X-Ray 11/24/16 0600 Signed Impressions: Service Date/Time: Thursday, November 24, 2016 04:30 - CONCLUSION: Large right pneumothorax. Findings discussed with Merari, the nurse taking care of the patient at 5:44am on 11/24/16. Jerman Dale MD Chest X-Ray 11/24/16 0000 Signed Impressions: Service Date/Time: Thursday, November 24, 2016 16:31 - CONCLUSION: Interval placement of a small bore right-sided chest tube with decrease in the size of the right pneumothorax. Rex Corcoran MD Chest X-Ray 11/24/16 0000 Signed Impressions: Service Date/Time: Thursday, November 24, 2016 12:16 - CONCLUSION: 1. Small to moderate right sided pneumothorax now noted with mediastinal shift to the left. 2. The right-sided chest tube remains in place. 3. Extensive subcutaneous emphysema is again noted bilaterally. Rex Corcoran MD Chest X-Ray 11/24/16 0000 Signed Impressions: Service Date/Time: Thursday, November 24, 2016 05:41 - CONCLUSION: Reexpansion of the right lung with chest tube in place. Jerman Dale MD Chest X-Ray 11/24/16 0000 Signed Impressions: Service Date/Time: Thursday, November 24, 2016 05:07 - CONCLUSION: Large right-sided pneumothorax with tension component suspected. Chest tube needs to be repositioned. Findings discussed with Merari the nurse taking care of the patient at 5:45 AM on August 24, 2017. Jerman Dale MD Chest X-Ray 11/22/16 0600 Signed Impressions: Service Date/Time: Tuesday, November 22, 2016 06:00 - CONCLUSION: 1. Stable chest x-ray with bilateral mid and lower lung zone airspace consolidation. 2. Stable pneumomediastinum and chest wall soft tissue air. No pneumothorax is appreciated. Jimmy Lara MD Chest X-Ray 11/21/16 0600 Signed Impressions: Service Date/Time: Monday, November 21, 2016 04:25 - CONCLUSION: 1. Persistent pneumomediastinum. No pneumothorax is identified. 2. Stable bilateral lower lung zone airspace consolidation. 3. New left axillary region soft tissue air from uncertain etiology. Jimmy Lara MD Chest CT 11/21/16 0000 Signed Impressions: Service Date/Time: Monday, November 21, 2016 16:14 - CONCLUSION: 1. Improvement of previous diffuse groundglass opacity. Probable developing fibrotic changes at the bases with some traction bronchiectasis. 2. Extensive air leak with pneumomediastinum and subcutaneous emphysema. There is also some loculated air at the right lung base that is new since the prior examination. This could represent a pneumatocele measuring 4.5 cm. Matt Wolf MD PHYSICAL EXAMINATION GENERAL: Unresponsive. HEENT: No icterus. Dry mucosa. NECK: No adenopathy or swelling. Neck collar in place. LUNGS: Bilateral rhonchi. HEART: Regular S1 and S2. No audible murmurs. ABDOMEN: Decreased bowel sounds, soft. non tender. EXTREMITIES: No edema. Pulses 2+ radial and dorsalis pedis. SKIN: No rash. NEUROLOGIC: non focal. PSYCHIATRIC: Alert and responsive. IMPRESSION 1. Fever, questionable etiology. Temp improved initially after stopping beta lactam abx. ? Pneumonia. Staph in sputum culture. 2. Acute respiratory failure. Extubated. Reintubated. 3. Leukocytosis. ? due to PNA. WBC still elevated. Also has superficial distal r. cephalic vein thrombus. Also on Solumedrol. However still has abnormal CXR. ? result of pulmonary fibrosis. 4. Sepsis on admission indicated by elevated heart rate, elevated temperature, elevated white blood cell count. Source unclear but likely pulmonary. 5. Abnormal chest x-ray with bilateral interstitial infiltrates suggesting possible pneumonia versus COPD or fibrosis. 6. Aspergillus PNA. Very critically ill. RECOMMENDATIONS 1. Continue Aztreonam. 2. Continue Micafungin. 3. Continue Voriconazole. 4. Monitor clinical status. Roberto Phan MD Nov 25, 2016 13:46
[2016-11-25] MEDS: PANTOPRAZOLE SODIUM 40 MG VIAL IV PUSH SCH (14:27)
[2016-11-25] MEDS ORDERED: DILTIAZEM INJ 125 MG in SODIUM CHLORIDE 0.9% INJ 100 ML IV SCH (15:00)
[2016-11-25] MEDS ORDERED: ALBUMIN HUMAN 25% 12.5 GM/50 ML BAGP IV ONE ×2 (15:28→16:00)
--- NOTE | 2016-11-25 17:10 | HHI.HCPN ---
Reason for visit a. To assist with evaluation and management of symptoms including: dyspnea, pain. b. To assist medical decision maker(s) with: better understanding of current medical conditions; weighing benefits/burdens of medical treatment options; making medical treatment decisions. . Subjective/Interval History Patient seen and examined in ICU. and his son at bedside. Patient with labored respiration on mech vent, FiO2 100%. Chest xray worsening. Chest tubes x [address] on right with adequate lung reexpansion on chest xray. Developed A. fib with RVR today. WBC increasing today now 19.4, platelets decreased 91, creatinine worsening now 1.44. Family/friend interactions Spoke with and his son at bedside. Medical update provided. He is asking questions about plans after DC. I explained case management will assist with these decisions. Reminded him that we are concerned she may not survive this hospitalization, he acknowledges having to take it one day at a time. He has palliative care number and welcomes continued visits. . Advance Directives Living Will: Copy in medical record Advance Directive Specifics Date completed: 10/02/04, updated HCS 10/15/2014. . Health Care Surrogate(s): Living will in chart dated 2013, names spouse Luis Enrique Rodríguez as primary designated healthcare surrogate and Mao Stevenson as alternate surrogate. . Documented care wishes: Living will indicates that should the patient have a terminal condition and her attending physician is determined that there will be no recovery from such condition and the is imminent she directs that the following NOT be done, given or administered: * CPR * nutritional support by other than oral means * hydration by other than oral means * antibiotics * transfusion of blood products * invasive procedures and diagnostic studies including but not limited to blood test spinal taps x-rays and scans. . Significant change in goals: NO CODE.Spoke with and his son at bedside. Medical update provided. He is asking questions about plans after DC. I explained case management will assist with these decisions. Reminded him that we are concerned she may not survive this hospitalization, he acknowledges having to take it one day at a time. He has palliative care number and welcomes continued visits. . Objective Vital Signs Date Time Temp Pulse Resp B/P Pulse Ox O2 Delivery O2 Flow Rate FiO2 11/25/16 16:37 99 100 11/25/16 12:00 97.9 107 24 146/79 91 11/25/16 12:00 107 11/25/16 12:00 90 11/25/16 11:02 91 80 11/25/16 10:00 86 11/25/16 08:16 95 80 11/25/16 08:00 87 11/25/16 08:00 97.8 86 24 111/59 99 11/25/16 08:00 90 11/25/16 07:00 90 11/25/16 06:00 92 11/25/16 06:00 90 11/25/16 04:00 98.9 94 20 124/66 97 11/25/16 04:00 94 11/25/16 04:00 90 11/25/16 03:47 97 90 11/25/16 02:00 94 11/25/16 00:31 97 100 11/25/16 00:00 99.1 96 20 127/66 97 11/25/16 00:00 96 11/25/16 00:00 100 11/24/16 22:00 92 11/24/16 20:01 95 100 11/24/16 20:00 92 11/24/16 20:00 100 11/24/16 20:00 98.6 92 20 131/67 95 11/24/16 18:00 92 Intake & Output 11/25/16 11/25/16 07:00 19:00 Intake Total 3196 ml 1386 ml Output Total 1060 ml 710 ml Balance 2136 ml 676 ml IV Total 2284 ml 772 ml Tube Feeding 672 ml 514 ml Other 240 ml 100 ml Output Urine Total 1000 ml 650 ml Chest Tube Drainage Total 60 ml 60 ml # Bowel Movements 3 0 Physical Exam CONSTITUTIONAL/GENERAL: This is an adequately nourished patient, sedated on vent. TUBES/LINES/DRAINS: ETT, NG tube on left, [place] collar, bilateral soft wrist restraints, Sanders, SCDs SKIN: No jaundice, rashes, or lesions. Ecchymoses on upper extremities. No wounds seen anteriorly. Skin temperature appropriate. Not diaphoretic. EYES: eyes closed. ENT: Unable to assess hearing. Nose without bleeding or purulent drainage. Difficult to visualize due to tubes. NECK: [place] collar in place. CARDIOVASCULAR: tachycardic. RESPIRATORY/CHEST: Symmetric, labored respirations on vent. Using accessory muscles to breathe. Breath sounds diminished right >left. Chest tube x 2 on right. SubQ emphysema. GASTROINTESTINAL: Abdomen soft, non-tender, nondistended. No guarding. Bowel sounds present. GENITOURINARY: Without palpable bladder distension. Sanders catheter in place. MUSCULOSKELETAL: Extremities with edema. No mottling or clubbing. NEUROLOGICAL: Sedated on vent. PSYCHIATRIC:Sedated on vent. . Diagnostic Tests Laboratory Laboratory Tests Test 11/23/16 11/23/16 11/23/16 11/24/16 09:04 19:01 20:14 06:35 White Blood Count 25.2 TH/MM3 21.6 TH/MM3 (4.0-11.0) (4.0-11.0) Red Blood Count 3.14 MIL/MM3 2.76 MIL/MM3 (4.00-5.30) (4.00-5.30) Hemoglobin 10.4 GM/DL 9.0 GM/DL (11.6-15.3) (11.6-15.3) Hematocrit 31.2 % 28.3 % (35.0-46.0) (35.0-46.0) Mean Corpuscular Volume 99.2 FL 102.5 FL (80.0-100.0) (80.0-100.0) Mean Corpuscular Hemoglobin 33.1 PG 32.7 PG (27.0-34.0) (27.0-34.0) Mean Corpuscular Hemoglobin 33.4 % 31.9 % Concent (32.0-36.0) (32.0-36.0) Red Cell Distribution Width 14.0 % 14.7 % (11.6-17.2) (11.6-17.2) Platelet Count 150 TH/MM3 131 TH/MM3 (150-450) (150-450) Mean Platelet Volume 11.2 FL 10.9 FL (7.0-11.0) (7.0-11.0) Neutrophils (%) (Auto) 96.5 % 94.5 % (16.0-70.0) (16.0-70.0) Lymphocytes (%) (Auto) 1.5 % 3.8 % (9.0-44.0) (9.0-44.0) Monocytes (%) (Auto) 1.7 % (0.0-8.0) 1.3 % (0.0-8.0) Eosinophils (%) (Auto) 0.0 % (0.0-4.0) 0.0 % (0.0-4.0) Basophils (%) (Auto) 0.3 % (0.0-2.0) 0.4 % (0.0-2.0) Neutrophils # (Auto) 24.4 TH/MM3 20.4 TH/MM3 (1.8-7.7) (1.8-7.7) Lymphocytes # (Auto) 0.4 TH/MM3 0.8 TH/MM3 (1.0-4.8) (1.0-4.8) Monocytes # (Auto) 0.4 TH/MM3 0.3 TH/MM3 (0-0.9) (0-0.9) Eosinophils # (Auto) 0.0 TH/MM3 0.0 TH/MM3 (0-0.4) (0-0.4) Basophils # (Auto) 0.1 TH/MM3 0.1 TH/MM3 (0-0.2) (0-0.2) CBC Comment DIFF FINAL AUTO DIFF Differential Comment FINAL DIFF MANUAL Sodium Level 153 MEQ/L 154 MEQ/L 152 MEQ/L (136-145) (136-145) (136-145) Potassium Level 4.3 MEQ/L 4.5 MEQ/L 3.8 MEQ/L (3.5-5.1) (3.5-5.1) (3.5-5.1) Chloride Level 113 MEQ/L 111 MEQ/L 112 MEQ/L (98-107) (98-107) (98-107) Carbon Dioxide Level 30.5 MEQ/L 29.1 MEQ/L 31.0 MEQ/L (21.0-32.0) (21.0-32.0) (21.0-32.0) Anion Gap 10 MEQ/L (5-15) 14 MEQ/L (5-15) 9 MEQ/L (5-15) Blood Urea Nitrogen 45 MG/DL (7-18) 47 MG/DL (7-18) 49 MG/DL (7-18) Creatinine 1.18 MG/DL 1.53 MG/DL 1.16 MG/DL (0.50-1.00) (0.50-1.00) (0.50-1.00) Estimat Glomerular Filtration 45 ML/MIN (>89) 34 ML/MIN (>89) 46 ML/MIN (>89) Rate Random Glucose 196 MG/DL 346 MG/DL 250 MG/DL (74-106) (74-106) (74-106) Calcium Level 8.1 MG/DL 7.2 MG/DL 7.4 MG/DL (8.5-10.1) (8.5-10.1) (8.5-10.1) Differential Total Cells 100 Counted Neutrophils % (Manual) 90 % (16-70) Band Neutrophils % 5 % (0-6) Lymphocytes % 4 % (9-44) Monocytes % 1 % (0-8) Neutrophils # (Manual) 20.5 TH/MM3 (1.8-7.7) Platelet Estimate LOW (NORMAL) Platelet Morphology Comment NORMAL (NORMAL) Prothrombin Time 11.1 SEC (9.8-11.6) Prothromb Time International 1.0 RATIO Ratio Lactic Acid Level 7.3 mmol/L (0.4-2.0) Protein Corrected Calcium 8.2 MG/DL 8.5 MG/DL (8.5-10.1) (8.5-10.1) Phosphorus Level 6.2 MG/DL 3.7 MG/DL (2.5-4.9) (2.5-4.9) Magnesium Level 2.5 MG/DL 2.3 MG/DL (1.5-2.5) (1.5-2.5) Total Bilirubin 0.4 MG/DL 0.4 MG/DL (0.2-1.0) (0.2-1.0) Aspartate Amino Transf 295 U/L (15-37) 495 U/L (15-37) (AST/SGOT) Alanine Aminotransferase 347 U/L (10-53) 852 U/L (10-53) (ALT/SGPT) Alkaline Phosphatase 117 U/L 123 U/L (45-117) (45-117) Total Creatine Kinase 84 U/L (26-192) Troponin I 0.06 NG/ML 0.08 NG/ML (0.02-0.05) (0.02-0.05) Total Protein 5.2 GM/DL 5.2 GM/DL (6.4-8.2) (6.4-8.2) Albumin 1.6 GM/DL 1.6 GM/DL (3.4-5.0) (3.4-5.0) Blood Gas Puncture Site RT BRACHIAL Blood Gas Patient Temperature 98.6 Blood Gas HCO3 28 mmol/L (22-26) Blood Gas Base Excess 3.2 mmol/L (-2-2) Blood Gas Oxygen Saturation 91 % (90-100) Arterial Blood pH 7.36 (7.380-7.420) Arterial Blood Partial 52 mmHg (38-42) Pressure CO2 Arterial Blood Partial 76 mmHg Pressure O2 (61-120) Arterial Blood Oxygen Content 12.0 Vol % (12.0-20.0) Arterial Blood 1.2 % (0-4) Carboxyhemoglobin Arterial Blood Methemoglobin 1.2 % (0-2) Blood Gas Hemoglobin 9.3 G/DL (12.0-16.0) Oxygen Delivery Device VENTILATOR Blood Gas Ventilator Setting PCV Blood Gas Inspired Oxygen 100 % Test 11/24/16 11/24/16 11/25/16 11/25/16 08:12 08:32 05:01 05:50 Blood Gas Puncture Site RT RADIAL RT RADIAL Blood Gas Patient Temperature 98.6 98.6 Blood Gas HCO3 28 mmol/L 31 mmol/L (22-26) (22-26) Blood Gas Base Excess 3.7 mmol/L 0.4 mmol/L (-2-2) (-2-2) Blood Gas Oxygen Saturation 91 % (90-100) 94 % (90-100) Arterial Blood pH 7.39 7.02 (7.380-7.420) (7.380-7.420) Arterial Blood Partial 48 mmHg (38-42) 127 mmHg Pressure CO2 (38-42) Arterial Blood Partial 71 mmHg 109 mmHg Pressure O2 (61-120) (61-120) Arterial Blood Oxygen Content 13.8 Vol % 14.4 Vol % (12.0-20.0) (12.0-20.0) Arterial Blood 1.0 % (0-4) 0.8 % (0-4) Carboxyhemoglobin Arterial Blood Methemoglobin 1.2 % (0-2) 1.2 % (0-2) Blood Gas Hemoglobin 10.8 G/DL 10.7 G/DL (12.0-16.0) (12.0-16.0) Oxygen Delivery Device VENTILATOR VENTILATOR Blood Gas Ventilator Setting PC/AC PC/AC Blood Gas Inspired Oxygen 100 % 90 % White Blood Count 16.3 TH/MM3 19.4 TH/MM3 (4.0-11.0) (4.0-11.0) Red Blood Count 2.76 MIL/MM3 3.05 MIL/MM3 (4.00-5.30) (4.00-5.30) Hemoglobin 9.0 GM/DL 10.0 GM/DL (11.6-15.3) (11.6-15.3) Hematocrit 27.4 % 31.9 % (35.0-46.0) (35.0-46.0) Mean Corpuscular Volume 99.4 FL 104.5 FL (80.0-100.0) (80.0-100.0) Mean Corpuscular Hemoglobin 32.7 PG 32.8 PG (27.0-34.0) (27.0-34.0) Mean Corpuscular Hemoglobin 32.9 % 31.4 % Concent (32.0-36.0) (32.0-36.0) Red Cell Distribution Width 14.5 % 15.4 % (11.6-17.2) (11.6-17.2) Platelet Count 96 TH/MM3 91 TH/MM3 (150-450) (150-450) Mean Platelet Volume 10.8 FL 11.2 FL (7.0-11.0) (7.0-11.0) Lactic Acid Level 3.5 mmol/L (0.4-2.0) Phosphorus Level 3.4 MG/DL 6.9 MG/DL (2.5-4.9) (2.5-4.9) Magnesium Level 2.2 MG/DL 2.7 MG/DL (1.5-2.5) (1.5-2.5) Sodium Level 156 MEQ/L (136-145) Potassium Level 5.6 MEQ/L (3.5-5.1) Chloride Level 117 MEQ/L (98-107) Carbon Dioxide Level 33.2 MEQ/L (21.0-32.0) Anion Gap 6 MEQ/L (5-15) Blood Urea Nitrogen 57 MG/DL (7-18) Creatinine 1.39 MG/DL (0.50-1.00) Estimat Glomerular Filtration 37 ML/MIN (>89) Rate Random Glucose 160 MG/DL (74-106) Calcium Level 8.1 MG/DL (8.5-10.1) Test 11/25/16 11/25/16 11/25/16 11/25/16 06:44 08:02 12:05 12:40 Blood Gas Puncture Site RT RADIAL LT RADIAL RT RADIAL Blood Gas Patient Temperature 98.6 98.6 98.6 Blood Gas HCO3 32 mmol/L 29 mmol/L 28 mmol/L (22-26) (22-26) (22-26) Blood Gas Base Excess 1.9 mmol/L 0.8 mmol/L -0.1 mmol/L (-2-2) (-2-2) (-2-2) Blood Gas Oxygen Saturation 95 % (90-100) 91 % (90-100) 87 % (90-100) Arterial Blood pH 7.05 7.13 7.16 (7.380-7.420) (7.380-7.420) (7.380-7.420) Arterial Blood Partial 120 mmHg 92 mmHg (38-42) 81 mmHg (38-42) Pressure CO2 (38-42) Arterial Blood Partial 115 mmHg 74 mmHg 62 mmHG Pressure O2 (61-120) (61-120) (61-120) Arterial Blood Oxygen Content 20.2 Vol % 13.1 Vol % 14.8 Vol % (12.0-20.0) (12.0-20.0) (12.0-20.0) Arterial Blood 0.8 % (0-4) 1.1 % (0-4) 2.0 % (0-4) Carboxyhemoglobin Arterial Blood Methemoglobin 1.3 % (0-2) 1.1 % (0-2) 2.1 % (0-2) Blood Gas Hemoglobin 15.1 G/DL 10.1 G/DL 12.1 G/DL (12.0-16.0) (12.0-16.0) (12.0-16.0) Oxygen Delivery Device VENTILATOR SEE COMMENTS VENTILATOR Blood Gas Ventilator Setting PC/AC PC/AC Blood Gas Inspired Oxygen 90 % 80 % 90 % Sodium Level 156 MEQ/L (136-145) Potassium Level 4.2 MEQ/L (3.5-5.1) Chloride Level 116 MEQ/L (98-107) Carbon Dioxide Level 31.0 MEQ/L (21.0-32.0) Anion Gap 9 MEQ/L (5-15) Blood Urea Nitrogen 59 MG/DL (7-18) Creatinine 1.44 MG/DL (0.50-1.00) Estimat Glomerular Filtration 36 ML/MIN (>89) Rate Random Glucose 307 MG/DL (74-106) Calcium Level 8.0 MG/DL (8.5-10.1) Result Diagram: 11/25/16 0550 11/25/16 1205 Imaging Last Impressions Chest X-Ray 11/25/16 0600 Signed Impressions: Service Date/Time: Friday, November 25, 2016 05:40 - CONCLUSION: Worsening appearance of the chest. Jerman Dale MD Chest CT 11/21/16 0000 Signed Impressions: Service Date/Time: Monday, November 21, 2016 16:14 - CONCLUSION: 1. Improvement of previous diffuse groundglass opacity. Probable developing fibrotic changes at the bases with some traction bronchiectasis. 2. Extensive air leak with pneumomediastinum and subcutaneous emphysema. There is also some loculated air at the right lung base that is new since the prior examination. This could represent a pneumatocele measuring 4.5 cm. Matt Wolf MD Abdomen X-Ray 11/19/16 0000 Signed Impressions: Service Date/Time: November 22:26 - CONCLUSION: Nasogastric tube has its tip near the gastric outlet. Nonobstructive bowel gas pattern. Jimmy Hoffmann MD Abdomen CT 11/19/16 0000 Signed Impressions: Service Date/Time: Sunday, November 20, 2016 04:24 - CONCLUSION: 1. No acute finding is identified within the abdomen on this noncontrast examination. 2. There is severe airspace consolidation/groundglass attenuation in both lung bases. Pneumomediastinum is present and there is a small right pneumothorax. Jimmy Lara MD Upper Extremity Ultrasound 11/11/16 0000 Signed Impressions: Service Date/Time: Friday, November 11, 2016 21:51 - CONCLUSION: 1. No evidence of DVT. 2. Focal superficial thrombosis involving the distal right cephalic vein. Roland Maier MD Lower Extremity Ultrasound 11/11/16 0000 Signed Impressions: Service Date/Time: Friday, November 11, 2016 21:22 - CONCLUSION: Negative exam with no evidence of deep venous thrombosis. Rex Corcoran MD Liver Ultrasound 11/09/16 0000 Signed Impressions: Service Date/Time: Wednesday, November 09, 2016 08:03 - CONCLUSION: 1. No acute abnormality. 2. Prior cholecystectomy. Common bile duct is within the normal range in terms of size for patient status post cholecystectomy. 3. Dystrophic calcification involving the right lobe of the liver. Scott Mittal Jr., MD Thoracic Spine MRI 11/07/16 0000 Signed Impressions: Service Date/Time: Monday, November 07, 2016 10:23 - CONCLUSION: 1. There is a fracture of the T1 vertebral body and T5 vertebral body. No significant height loss is present and there is no retropulsion of any fracture fragment. No canal stenosis is present. 2. Please refer to today's chest CT examination report for description of the pulmonary findings. Jimmy Lara MD Renal Ultrasound 11/06/16 0000 Signed Impressions: Service Date/Time: Sunday, November 06, 2016 22:24 - CONCLUSION: Probable complicated cyst midpole left kidney measuring 2.0 cm. Otherwise negative exam. No evidence of hydronephrosis. Scott Cantor MD Head CT 11/04/16 2326 Signed Impressions: Service Date/Time: Friday, November 04, 2016 23:45 - CONCLUSION: No acute intracranial findings. Jimmy Felton MD Abdomen/Pelvis CT 11/04/16 0000 Signed Impressions: Service Date/Time: Friday, November 04, 2016 23:48 - CONCLUSION: Markedly dilated urinary bladder with mild-moderate bilateral hydronephrosis Jimmy Felton MD Procedures * 11/24/16 chest tube placement * 11/23/16 right femoral central line placement * 11/23/16 emergency right pigtail catheter placement due to tension pneumothorax * 11/19/16 fiber-optic bronchoscopy * 11/19/16 Re- intubated * 11/16/16 - extubated * 11/06/16 intubated . Assessment and Plan Disease Oriented Problem List: (1) T1 vertebral fracture (2) C7 cervical fracture (3) Fall (4) Pneumonia (5) Sepsis (6) Atrial fibrillation and flutter (7) Fever (8) COPD (chronic obstructive pulmonary disease) (9) ARDS (adult respiratory distress syndrome) (10) Acute respiratory failure (11) Pulmonary fibrosis (12) Dyspnea (13) Leukocytosis (14) Severe protein-calorie malnutrition Symptom Scale: (1) Severe protein-calorie malnutrition 0-10 Scale: Unable to quantify Comment: Albumin 2.3 (2) Pain 0-10 Scale: Unable to quantify (3) Dyspnea 0-10 Scale: Unable to quantify Comment: on mech vent. Pertinent Non-Medical Issues Psychosocial: . Spiritual: [employer] adolfo. Legal: Living will in chart dated 2013, names spouse Luis Enrique Rodríguez as primary designated healthcare surrogate and Mao Stevenson as alternate surrogate. Ethical issues impacting care: no known concerns at this time. . Important Contacts * Luis Enrique Rodríguez, spouse/HCS: [phone] * Mao Stevenson, alternate HCS: [phone] . Prognosis Discussed with Dr. Marquez, overall prognosis appears poor. May not be able to wean . Code Status: No Code Plan * Living will in chart dated 2013, names spouse Luis Enrique Rodríguez as primary designated healthcare surrogate and Mao Stevenson as alternate surrogate. * NO CODE * Spoke with and his son at bedside. Medical update provided. He is asking questions about plans after DC. I explained case management will assist with these decisions. Reminded him that we are concerned she may not survive this hospitalization, he acknowledges having to take it one day at a time. He has palliative care number and welcomes continued visits. * Discussed with Dr. Marquez and nurse. * SYMPTOMS: dyspnea: labored respiration on mech vent. Sedated. Nimbex restarted per nurse. pain: potential sources include recent falls, spinal injury , chest tubes, intubation etc. sedated. * Palliative care will continue to follow. . Attestation To help prompt me to consider important information that might be impacting today's encounter and assessment, information from prior notes written by myself or my colleagues may have been "brought forward" into today's note. My signature on this note, however, is an attestation that I personally performed the exam, history, and/or decision-making noted today, and, unless otherwise indicated, the interactions with patient, family, and staff as well as the review of records all occurred today. I also attest that the listed assessment and stated plan reflect my best clinical judgment today based on the combination of historical information, prior notes, and today's exam/ interactions. When time spent is documented, it refers only to time spent today by the signer, or if indicated, combined time spent today by collaborating physician/nurse practitioner. SUHAS FUENTES Nov 25, 2016 17:10
[2016-11-25] MEDS: MIDAZOLAM 100 MG/NS 100 ML DRIP Premix IV SCH (17:44)
--- NOTE | 2016-11-25 20:35 | RADRPT ---
EXAM DATE/TIME: 11/25/2016 19:59 [facility] COMPARISON: CHEST SINGLE AP, November 25, 2016, 12:35. INDICATIONS : Acute desaturation. MEDICAL HISTORY : Hypertension. Cardiovascular disease. Chronic obstructive pulmonary SURGICAL HISTORY : None. ENCOUNTER: Subsequent ACUITY: 3 weeks PAIN SCORE: Non-responsive. LOCATION: Bilateral chest FINDINGS: Compared with exam from earlier today there is a new air leak on the right with subcutaneous air in t he right chest wall. There is also a new small right pneumothorax. Small caliber and larger caliber r ight chest tube. Right central line in superior vena cava extending into right atrium. Endotracheal t ube in satisfactory position. NG in stomach. Bilateral airspace disease similar to earlier exam. CONCLUSION: 1. New air leak on the right with subcutaneous air in the chest wall and small right pneumothorax. 2 right chest tubes are present. Matt Wolf MD on November 25, 2016 at 20:31 Board Certified Radiologist. This report was verified electronically.
[2016-11-25] MEDS: MONTELUKAST SODIUM 10 MG TAB PO SCH (21:01)
--- NOTE | 2016-11-25 21:30 | EKG ---
Date Performed: 11/25/2016 Time Performed: 14:32:08 PTAGE: 71 years EKG: --- Warning: Data quality may affect interpretation --- Atrial fibrillation with rapid vent ricular response. Would repeat EKD due to marked artifact. Abnormal ECG NO PREVIOUS TRACING DOCTOR: Lowell Vegas Interpretating Date/Time 11/25/2016 21:29:31
--- NOTE | 2016-11-25 21:31 | EKG ---
Date Performed: 11/25/2016 Time Performed: 12:49:54 PTAGE: 71 years EKG: Marked artifact present Atrial fibrillation with uncontrolled ventricular response. Artifac t precludes accurate interpretation or comparison. PREVIOUS TRACING : 11/06/2016 08.25 DOCTOR: Lowell Vegas Interpretating Date/Time 11/25/2016 21:30:54
[2016-11-25] MEDS: MICAFUNGIN INJ 100 MG in SODIUM CHLORIDE 0.9% INJ 100 ML IV SCH (21:32)
[2016-11-26] VITALS (15 sets, daily range): BP systolic 104–121; BP diastolic 56–60; PULSE 74–84; RESP 26–27; TEMP 97.4–97.9; O2SAT 90–98
[2016-11-26] MEDS: HIGH DOSE INSULIN NOVOLOG SUPPLEMENTAL SCALE SQ SCH ×2 (00:14→05:16)
--- NOTE | 2016-11-26 04:02 | RADRPT ---
EXAM DATE/TIME: 11/26/2016 03:16 [facility] COMPARISON: CHEST SINGLE AP, November 25, 2016, 19:59. INDICATIONS : Shortness of breath MEDICAL HISTORY : Hypertension. Cardiovascular disease. Chronic obstructive pulmonary SURGICAL HISTORY : None. ENCOUNTER: Subsequent ACUITY: 3 weeks PAIN SCORE: Non-responsive. LOCATION: Bilateral chest FINDINGS: ACDF hardware overlies the cervical spine. There is diffuse bilateral alveolar and interstitial infil trate. NG tube courses beneath the diaphragm. Right-sided chest tube is present as well as a pigtail catheter at the right lung base. A right-sided pneumothorax is stable. Subcutaneous emphysema is decr eased. CONCLUSION: Decrease in subcutaneous emphysema right chest otherwise stable exam. Jerman Dale MD on November 26, 2016 at 4:00 Board Certified Radiologist. This report was verified electronically.
[2016-11-26] MEDS: RESP: ALBUTEROL 2.5 MG/IPRATROPIUM 0.5 MG NEB (SCH) NEB ×2 (04:09→07:49)
[2016-11-26] MEDS: HEPARIN SODIUM - SQ 10,000 UNITS/ML VIAL SQ SCH ×2 (05:07→14:00)
[2016-11-26] MEDS: methylPREDNISolone SOD SUCC 40 MG/1 ML VIAL IV SCH ×2 (05:07→14:00)
[2016-11-26] MEDS: THYROID 30 MG TAB PO SCH (05:07)
[2016-11-26] MEDS: VORICONAZOLE IV SCH ×2 (05:08→16:00)
[2016-11-26] MEDS: SODIUM CHLORIDE 0.9% IV SCH ×2 (05:08→16:00)
[2016-11-26] MEDS: CISATRACURIUM INJ 100 MG in SODIUM CHLOR 0.9% 250 ML INJ 240 ML IV SCH ×3 (05:08→11:50)
[2016-11-26] MEDS: AZTREONAM INJ 1,000 MG in SODIUM CHLORIDE 0.9% INJ 100 ML IV SCH ×2 (06:24→15:00)
[2016-11-26] MEDS: fentaNYL 2,500 MCG/NS 250 ML IV SCH (06:49)
[2016-11-26] MEDS: POLYETHYLENE GLYCOL 17 GM PKG PO SCH (07:26)
[2016-11-26] MEDS: DOCUSATE SODIUM 100 MG CAP PO SCH (07:26)
[2016-11-26] MEDS: TIOTROPIUM BROMIDE 18 MCG INH INH SCH (07:28)
[2016-11-26] MEDS: LEVOCETIRIZINE 5 MG PO SCH (07:29)
[2016-11-26 07:33] LABS: BASOPHIL % 0.1 % (0.0-2.0); HEMATOCRIT 25.5 % (35.0-46.0); LYMPH % 2.7 % (9.0-44.0); LYMPHOCYTE # 0.2 TH/MM3 (1.0-4.8); MEAN CORPUSCULAR HEMOGLOBIN 33.6 PG (27.0-34.0); MEAN CORPUSCULAR HGB CONC 31.7 % (32.0-36.0); MONO % 0.7 % (0.0-8.0); NEUT % 96.5 % (16.0-70.0); PLATELET COUNT 40 TH/MM3 (150-450); RED BLOOD COUNT 2.41 MIL/MM3 (4.00-5.30); RED CELL DISTRIBUTION WIDTH 15.3 % (11.6-17.2); WHITE BLOOD COUNT 8.3 TH/MM3 (4.0-11.0)
[2016-11-26 07:36] LABS: HEMO FLAGS AUTO DIFF
[2016-11-26] MEDS: CETIRIZINE HCL SYRUP 10 MG/10 ML UDC TUBE SCH (07:45)
[2016-11-26] MEDS: DEXTROSE 5% IN WATE 1000ML INJ 1,000 ML IV SCH (07:45)
[2016-11-26] MEDS: EPOPROSTENOL NEB SOLUTION 50 NG/KG/MIN 100 ML NEB SCH ×2 (07:45)
[2016-11-26] MEDS: SODIUM CHLORIDE 0.9% FLUSH 5 ML FLUSH FLUSH SCH (07:46)
[2016-11-26] MEDS: CHLORHEXIDINE 0.12% (ORAL KIT) 15 ML CUP MT SCH (07:46)
[2016-11-26] MEDS: RESP: BUDESONIDE 0.5 MG/2 ML NEB NEB SCH (07:49)
[2016-11-26 08:21] LABS: PLATELET ESTIMATE SMEAR LOW (NORMAL); PLATELET MORPHOLOGY NORMAL (NORMAL); SCAN/DIFF AUTO DIFF CONFIRMED; TEARDROP RBCS 1+ (NORMAL)
[2016-11-26 09:20] LABS: BICARBONATE 30.8 MEQ/L (21.0-32.0); CALCIUM-PROTEIN CORRECTED 8.2 MG/DL (8.5-10.1); MAGNESIUM 2.1 MG/DL (1.5-2.5); TOTAL BILIRUBIN ADULT 0.2 MG/DL (0.2-1.0)
[2016-11-26 09:23] LABS: POTASSIUM 2.9 MEQ/L (3.5-5.1)
[2016-11-26] MEDS ORDERED: FUROSEMIDE 100 MG/10 ML VIAL IV PUSH ONE (09:45)
[2016-11-26] MEDS ORDERED: POTASSIUM CL 40 MEQ/30 ML LIQ UDC PO ONE (09:45)
[2016-11-26] MEDS ORDERED: INSULIN REGULAR (IV INFUSION) 100 UNITS in SODIUM CHLORIDE 0.9% INJ 99 ML IV SCH (09:45)
[2016-11-26] MEDS ORDERED: MISC INFORMATION XX ONE (09:45)
[2016-11-26] MEDS ORDERED: DEXTROSE 50% IN WATER 50 ML VIAL(D50) IV PUSH PRN (09:45)
[2016-11-26] MEDS: POTASSIUM CHLOR 40 MEQ PREMIX 100 ML IV-CENTRAL PRN ×2 (09:54→12:45)
[2016-11-26] MEDS ORDERED: REMOVE OLD PATCH T-DERMAL SCH (10:00)
[2016-11-26] MEDS: FREE WATER G-TUBE SCH ×2 (10:54→16:00)
[2016-11-26] MEDS: DILTIAZEM HCL 60 MG TAB PO SCH (11:28)
--- NOTE | 2016-11-26 11:44 | HHI.CCPN ---
Subjective Remarks/Hospital Course Remarks/Hospital Course Patient is a 71-year-old female with history of pulmonary fibrosis, asthma, probable COPD on home oxygen who had a recent fall at home and sustained C7/ T1 fractures. She was evaluated by neurosurgery and conservatively managed and placed in a cervical collar. She was discharged home on 11/04/16. The pt developed inability to ambulate at home and also had urinary retention. Patient 's also noticed that she had been more confused. ER workup included a CT of the head which was negative, CT of the abdomen pelvis showed markedly distended bladder with mild to moderate hydronephrosis. Sanders catheter was inserted. Chest x-ray showed increasing bilateral infiltrates. Patient was admitted to the hospitalist service, on broad-spectrum antibiotics with Zosyn and vancomycin, breathing treatments. Neurology Dr. Xiong was also consulted Today was noted to have increasing shortness of breath today, tachypnea and hypoxia requiring a partial nonrebreather. Also noted to have A flutter with rapid ventricular response. Cardizem boluses 2 was given on Cardizem infusion was started. Because of her worsening respiratory failure patient was moved to the ICU. Critical care medicine consulted and I immediately evaluated the patient. She is in moderate distress on partial nonrebreather breathing 35-40/ m. Chest exam shows bilateral crackles and wheezes. I have added Solu-Medrol and scheduled breathing treatments and ordered BiPAP 10 over 5. I explained to the patient and the that patient may need endotracheal intubation and mechanical ventilation if she is not improving with BiPAP. 11/07 Patient is sedated with Diprivan and intubated. Afebrile. On Cardizem drip 5mg/hr, for MRI spine and CT thorax today. 11/08 Patient is sedated with Fentnayl and intubated. Afebrile. Renal function worse today with Cr: 1.65 from 1.15 11/09 Tmax 102.2. The patient's sputum culture grew preliminarily budding yeast with pseudohyphae. Diflucan initiated yesterday white count trending down. Lasix discontinued yesterday secondary to elevated creatinine level. 11/10 Afebrile. Able to wean oxygenation to FiO2 of 40% today. CPAP trials plan for today. The patient was noted to be hypernatremic free water flushes were added to her tube feedings. Creatinine slightly improved today. PT consulted Functional maintenance with specific requirements to be referred to neurosurgery for restrictions of any type of activities regarding functional maintenance. 11/11 Tmax 101.7. Patient continues to have persistent fevers, on antibiotic therapy, ID consulted,Dr Phan, appreciate recommendations. The patient has elevations in heart rate with activity/movement, received 2 doses of metoprolol with some diminution, from 160 to 90's yesterday. Overnight the patient's heart rate remained in the 120's. CPAP trials were initiated yesterday the patient was able to maintain the trial for approximately 4 hours. 11/12 Persistent fever last 24 hours, patient placed on a cooling blanket. Antibiotics adjusted per ID, Dr. Phan. Ultrasound Doppler obtained bilateral upper and lower extremities results superficial thrombus white distal cephalic vein. The patient was maintained on CPAP approximately 9 hours yesterday. Fentanyl infusion resumed today, patient complained of pain. Scheduled by mouth narcotics initiated. 11/13 CPAP trials lasted 11 hours. Patient continues to have fevers on a cooling blanket, Dr. Phan managing antibiotic regimen. Patient can continuously complain of pain, scheduled pain meds multimodal therapy approach initiated. 11/14 Was on CPAP 10/8 FiO2 55% for several hours and then terminated due to desaturation. WBC up to 22.9 without fever. No significant respiratory secretions. Had diarrhea yesterday but now RN reports no BM today after holding bowel regimen. Abdomen benign and tolerating tube feeds. Check for C diff if has a loose stool. Panculture sent. updated at bedside. Has no invasive lines. Subjective: 11/15 Diuresed net negative 1 L last shift following lasix. Creatinine downtrend to 1.19. Sodium down to 150. Received 6 am dose of Lasix. FiO2 weaned to 45%. WBC down 17. Afebrile. Placed on CPAP 5/5 and TV 550 and RSBI 30s. Sats 89-92% on 50%. 11/16 Tmax in 100.1. The patient continues today on CPAP trial PaO2 65 on FiO2 of 55%. The patient has been diuresed over the last several days, sodium is down trending now 145 tube feeds are off, will plan for a trial of extubation. As discussed with the Dr. Rodríguez that the patient possibly will need tracheostomy. Dr. Aguilera consulted for possible tracheostomy. 11/17 Afebrile. The patient was extubated yesterday afternoon .The patient tolerated BiPAP overnight, maintaining O2 sat 9294%, on FiO2 of 50%. Plan to transition to high flow nasal cannula if tolerated. 11/18 The patient tolerated-flow nasal cannula for the last 24 hours. Attempts at weaning FiO2 less than 65% unsuccessful at this point. O2 sat 8892%. Patient unable to perform incentive spirometry at this time. 11/19 The patient had respiratory decompensation this afternoon, requiring emergent intubation. The patient also underwent fiberoptic bronchoscopy which was unremarkable, and obtained BAL specimens as she continues to have fevers. 11/20 Tmax 100.0. The patient required emergent intubation yesterday afternoon secondary to hypoxemic/hypercapnic respiratory failure. A BAL was performed to obtain specimens secondary to elevation in white count. BAL revealed staph aureus. The process of weaning FiO2 is currently underway, FiO2 currently 65%. The patient complained of abdominal pain last evening, CT scan obtained. 11/21 This afternoon patient experiencing increased O2 requirements to maintain a PaO2 of 60. Chest x-ray reviewed noting possible pneumomediastinum. PEEP 5, stat CT chest pending. CT of the abdomen benign, patient tolerating tube feeds.Pt transported to CT scanner PEEP 8 required for adequate oxygenation. Returned from CT scanner, returned to PEEP of 5, FIO2 90%. 11/22 The patient was maintained on an FiO2 of 90% overnight, O2 sats remained 92 94%. This a.m. FiO2 was decreased to 85%, P/F Ratio 84. Repeat chest x-ray revealed stable pneumomediastinum CT surgery was consulted yesterday, appreciate recommendations. Bronchial washings resulted in mold, and moderate staph aureus growth. 11/23 Tmax 99.9. Bronchial washings, preliminary diagnosis Aspergillus. The patient was started on voriconazole. Repeat chest x-ray resulting decreasing air in mediastinum and less emphysematous changes and left chest. The patient continues on PRBC ventilator mode, FiO2 80% all night, unable to wean. 11/23 (evening) Difficult to ventilate, with high PEEP pressures. Emergency chest x-ray done stat showed a large right pneumothorax with tension. I prepared for emergency chest tube placement, while I was getting the equipment ready at the bedside, patient lost blood pressure became bradycardic and then developed asystolic arrest. ACLS protocol followed with immediate CPR, 2 rounds of epinephrine and 2 rounds of bicarbonate. At the same time I did emergency needle decompression of the right lateral chest and place an emergency 10 [place] pigtail catheter. Once the pigtail catheter was to suction, patient regained pulse and blood pressure back. I also placed an emergency right femoral central line. Patient will be continued on Levophed infusion. 11/24 Persistent pneumothorax, 20 [place] right chest tube placed this a.m. with reexpansion. The patient remains on Flolan, 100% FiO2 to maintain an O2 sat of 90%. The patient remains paralyzed and sedated, unable to place on PRVC ventilator settings. The patient is maintained on pressure control ventilator settings. Palliative care has been consulted to discuss goals of care with family. 11/25: Second chest tube placed yesterday afternoon for persistent right moderate sized pneumo. On pressure control vent settings with tidal volume 400 of 425. Severe CO2 retention with acidosis-pH 7 PCO2 120. I have increased inspiratory pressure to 22, increased rate to 24 from 20, and also reduced the PEEP to 5 from, 7 and reduced I time to 1 from 1.3. Chest x-ray shows severe bilateral infiltrates, and tiny apical pneumothorax 11/26: no significant improvements. continues with very poor prognosis on maximal ventilatory settings. tidal volumes worsening to 250cc this AM with similar peak pressures 36. I had a discussion with the today. I do not think this is a survivable illness given severity of chronic disease on top of acute insult. Objective Vital Signs Date Time Temp Pulse Resp B/P Pulse Ox O2 Delivery O2 Flow Rate FiO2 11/26/16 10:54 90 11/26/16 10:54 96 11/26/16 06:00 74 11/26/16 04:00 97.8 26 119/60 11/25/16 18:09 15.00 Intake and Output 11/25/16 11/25/16 11/26/16 08:00 16:00 00:00 Intake Total 1620 ml 1386 ml 2851 ml Output Total 550 ml 710 ml 570 ml Balance 1070 ml 676 ml 2281 ml Result Diagram: 11/26/16 0640 11/26/16 0830 Other Results Laboratory Tests Test 11/25/16 12:40 Blood Gas Puncture Site RT RADIAL Blood Gas Patient Temperature 98.6 Blood Gas HCO3 28 mmol/L (22-26) Blood Gas Base Excess -0.1 mmol/L (-2-2) Blood Gas Oxygen Saturation 87 % (90-100) Arterial Blood pH 7.16 (7.380-7.420) Arterial Blood Partial 81 mmHg (38-42) Pressure CO2 Arterial Blood Partial 62 mmHG Pressure O2 (61-120) Arterial Blood Oxygen Content 14.8 Vol % (12.0-20.0) Arterial Blood 2.0 % (0-4) Carboxyhemoglobin Arterial Blood Methemoglobin 2.1 % (0-2) Blood Gas Hemoglobin 12.1 G/DL (12.0-16.0) Oxygen Delivery Device VENTILATOR Blood Gas Ventilator Setting PC/AC Blood Gas Inspired Oxygen 90 % Imaging Last Impressions Chest X-Ray 11/22/16 0600 Signed Impressions: Service Date/Time: Tuesday, November 22, 2016 06:00 - CONCLUSION: 1. Stable chest x-ray with bilateral mid and lower lung zone airspace consolidation. 2. Stable pneumomediastinum and chest wall soft tissue air. No pneumothorax is appreciated. Jimmy Lara MD Chest CT 11/21/16 0000 Signed Impressions: Service Date/Time: Monday, November 21, 2016 16:14 - CONCLUSION: 1. Improvement of previous diffuse groundglass opacity. Probable developing fibrotic changes at the bases with some traction bronchiectasis. 2. Extensive air leak with pneumomediastinum and subcutaneous emphysema. There is also some loculated air at the right lung base that is new since the prior examination. This could represent a pneumatocele measuring 4.5 cm. Matt Wolf MD Abdomen X-Ray 11/19/16 0000 Signed Impressions: Service Date/Time: November 22:26 - CONCLUSION: Nasogastric tube has its tip near the gastric outlet. Nonobstructive bowel gas pattern. Jimmy Hoffmann MD Abdomen CT 11/19/16 0000 Signed Impressions: Service Date/Time: Sunday, November 20, 2016 04:24 - CONCLUSION: 1. No acute finding is identified within the abdomen on this noncontrast examination. 2. There is severe airspace consolidation/groundglass attenuation in both lung bases. Pneumomediastinum is present and there is a small right pneumothorax. Jimmy Lara MD Upper Extremity Ultrasound 11/11/16 0000 Signed Impressions: Service Date/Time: Friday, November 11, 2016 21:51 - CONCLUSION: 1. No evidence of DVT. 2. Focal superficial thrombosis involving the distal right cephalic vein. Roland Maier MD Lower Extremity Ultrasound 11/11/16 0000 Signed Impressions: Service Date/Time: Friday, November 11, 2016 21:22 - CONCLUSION: Negative exam with no evidence of deep venous thrombosis. Rex Corcoran MD Liver Ultrasound 11/09/16 0000 Signed Impressions: Service Date/Time: Wednesday, November 09, 2016 08:03 - CONCLUSION: 1. No acute abnormality. 2. Prior cholecystectomy. Common bile duct is within the normal range in terms of size for patient status post cholecystectomy. 3. Dystrophic calcification involving the right lobe of the liver. Scott Mittal Jr., MD Thoracic Spine MRI 11/07/16 0000 Signed Impressions: Service Date/Time: Monday, November 07, 2016 10:23 - CONCLUSION: 1. There is a fracture of the T1 vertebral body and T5 vertebral body. No significant height loss is present and there is no retropulsion of any fracture fragment. No canal stenosis is present. 2. Please refer to today's chest CT examination report for description of the pulmonary findings. Jimmy Lara MD Renal Ultrasound 11/06/16 0000 Signed Impressions: Service Date/Time: Sunday, November 06, 2016 22:24 - CONCLUSION: Probable complicated cyst midpole left kidney measuring 2.0 cm. Otherwise negative exam. No evidence of hydronephrosis. Scott Cantor MD Head CT 11/04/16 2326 Signed Impressions: Service Date/Time: Friday, November 04, 2016 23:45 - CONCLUSION: No acute intracranial findings. Jimmy Felton MD Abdomen/Pelvis CT 11/04/16 0000 Signed Impressions: Service Date/Time: Friday, November 04, 2016 23:48 - CONCLUSION: Markedly dilated urinary bladder with mild-moderate bilateral hydronephrosis Jimmy Felton MD Last Impressions Chest X-Ray 11/15/16 0000 Signed Impressions: Service Date/Time: Tuesday, November 15, 2016 11:02 - CONCLUSION: No significant interval change. Roland Maier MD Upper Extremity Ultrasound 11/11/16 0000 Signed Impressions: Service Date/Time: Friday, November 11, 2016 21:51 - CONCLUSION: 1. No evidence of DVT. 2. Focal superficial thrombosis involving the distal right cephalic vein. Roland Maier MD Lower Extremity Ultrasound 11/11/16 0000 Signed Impressions: Service Date/Time: Friday, November 11, 2016 21:22 - CONCLUSION: Negative exam with no evidence of deep venous thrombosis. Rex Corcoran MD Liver Ultrasound 11/09/16 0000 Signed Impressions: Service Date/Time: Wednesday, November 09, 2016 08:03 - CONCLUSION: 1. No acute abnormality. 2. Prior cholecystectomy. Common bile duct is within the normal range in terms of size for patient status post cholecystectomy. 3. Dystrophic calcification involving the right lobe of the liver. Scott Mittal Jr., MD Thoracic Spine MRI 11/07/16 0000 Signed Impressions: Service Date/Time: Monday, November 07, 2016 10:23 - CONCLUSION: 1. There is a fracture of the T1 vertebral body and T5 vertebral body. No significant height loss is present and there is no retropulsion of any fracture fragment. No canal stenosis is present. 2. Please refer to today's chest CT examination report for description of the pulmonary findings. Jimmy Lara MD Renal Ultrasound 11/06/16 0000 Signed Impressions: Service Date/Time: Sunday, November 06, 2016 22:24 - CONCLUSION: Probable complicated cyst midpole left kidney measuring 2.0 cm. Otherwise negative exam. No evidence of hydronephrosis. Scott Cantor MD Chest CT 11/06/16 0000 Signed Impressions: Service Date/Time: Monday, November 07, 2016 10:50 - CONCLUSION: Severe diffuse geographic areas of groundglass attenuation bilaterally with trace bilateral pleural effusions. The pattern is nonspecific but can be seen with infection and ARDS among other etiologies. Jimmy Lara MD Head CT 11/04/16 2326 Signed Impressions: Service Date/Time: Friday, November 04, 2016 23:45 - CONCLUSION: No acute intracranial findings. Jimmy Felton MD Abdomen/Pelvis CT 11/04/16 0000 Signed Impressions: Service Date/Time: Friday, November 04, 2016 23:48 - CONCLUSION: Markedly dilated urinary bladder with mild-moderate bilateral hydronephrosis Jimmy Felton MD Last Impressions Chest X-Ray 11/12/16 0600 Signed Impressions: Service Date/Time: October 02:40 - CONCLUSION: No significant interval change. Roland Maier MD Upper Extremity Ultrasound 11/11/16 0000 Signed Impressions: Service Date/Time: Friday, November 11, 2016 21:51 - CONCLUSION: 1. No evidence of DVT. 2. Focal superficial thrombosis involving the distal right cephalic vein. Roland Maier MD Lower Extremity Ultrasound 11/11/16 0000 Signed Impressions: Service Date/Time: Friday, November 11, 2016 21:22 - CONCLUSION: Negative exam with no evidence of deep venous thrombosis. Rex Corcoran MD Liver Ultrasound 11/09/16 0000 Signed Impressions: Service Date/Time: Wednesday, November 09, 2016 08:03 - CONCLUSION: 1. No acute abnormality. 2. Prior cholecystectomy. Common bile duct is within the normal range in terms of size for patient status post cholecystectomy. 3. Dystrophic calcification involving the right lobe of the liver. Scott Mittal Jr., MD Thoracic Spine MRI 11/07/16 0000 Signed Impressions: Service Date/Time: Monday, November 07, 2016 10:23 - CONCLUSION: 1. There is a fracture of the T1 vertebral body and T5 vertebral body. No significant height loss is present and there is no retropulsion of any fracture fragment. No canal stenosis is present. 2. Please refer to today's chest CT examination report for description of the pulmonary findings. Jimmy Lara MD Renal Ultrasound 11/06/16 0000 Signed Impressions: Service Date/Time: Sunday, November 06, 2016 22:24 - CONCLUSION: Probable complicated cyst midpole left kidney measuring 2.0 cm. Otherwise negative exam. No evidence of hydronephrosis. Scott Cantor MD Chest CT 11/06/16 0000 Signed Impressions: Service Date/Time: Monday, November 07, 2016 10:50 - CONCLUSION: Severe diffuse geographic areas of groundglass attenuation bilaterally with trace bilateral pleural effusions. The pattern is nonspecific but can be seen with infection and ARDS among other etiologies. Jimmy Lara MD Head CT 11/04/16 0686 Signed Impressions: Service Date/Time: Friday, November 04, 2016 23:45 - CONCLUSION: No acute intracranial findings. Jimmy Felton MD Abdomen/Pelvis CT 11/04/16 0000 Signed Impressions: Service Date/Time: Friday, November 04, 2016 23:48 - CONCLUSION: Markedly dilated urinary bladder with mild-moderate bilateral hydronephrosis Jimmy Felton MD Last Impressions Chest X-Ray 11/12/16 0600 Signed Impressions: Service Date/Time: October 02:40 - CONCLUSION: No significant interval change. Roland Maier MD Upper Extremity Ultrasound 11/11/16 0000 Signed Impressions: Service Date/Time: Friday, November 11, 2016 21:51 - CONCLUSION: 1. No evidence of DVT. 2. Focal superficial thrombosis involving the distal right cephalic vein. Roland Maier MD Lower Extremity Ultrasound 11/11/16 0000 Signed Impressions: Service Date/Time: Friday, November 11, 2016 21:22 - CONCLUSION: Negative exam with no evidence of deep venous thrombosis. Rex Corcoran MD Liver Ultrasound 11/09/16 0000 Signed Impressions: Service Date/Time: Wednesday, November 09, 2016 08:03 - CONCLUSION: 1. No acute abnormality. 2. Prior cholecystectomy. Common bile duct is within the normal range in terms of size for patient status post cholecystectomy. 3. Dystrophic calcification involving the right lobe of the liver. Scott Mitatl Jr., MD Thoracic Spine MRI 11/07/16 0000 Signed Impressions: Service Date/Time: Monday, November 07, 2016 10:23 - CONCLUSION: 1. There is a fracture of the T1 vertebral body and T5 vertebral body. No significant height loss is present and there is no retropulsion of any fracture fragment. No canal stenosis is present. 2. Please refer to today's chest CT examination report for description of the pulmonary findings. Jimmy Lara MD Renal Ultrasound 11/06/16 0000 Signed Impressions: Service Date/Time: Sunday, November 06, 2016 22:24 - CONCLUSION: Probable complicated cyst midpole left kidney measuring 2.0 cm. Otherwise negative exam. No evidence of hydronephrosis. Scott Cantor MD Chest CT 11/06/16 0000 Signed Impressions: Service Date/Time: Monday, November 07, 2016 10:50 - CONCLUSION: Severe diffuse geographic areas of groundglass attenuation bilaterally with trace bilateral pleural effusions. The pattern is nonspecific but can be seen with infection and ARDS among other etiologies. Jimmy Lara MD Head CT 11/04/162325 Signed Impressions: Service Date/Time: Friday, November 04, 2016 23:45 - CONCLUSION: No acute intracranial findings. Jimmy Felton MD Abdomen/Pelvis CT 11/04/16 Signed Impressions: Service Date/Time: Friday, November 04, 2016 23:48 - CONCLUSION: Markedly dilated urinary bladder with mild-moderate bilateral hydronephrosis Jimmy Felton MD Last Impressions Liver Ultrasound 11/09/16 Signed Impressions: Service Date/Time: Wednesday, November 09, 2016 08:03 - CONCLUSION: 1. No acute abnormality. 2. Prior cholecystectomy. Common bile duct is within the normal range in terms of size for patient status post cholecystectomy. 3. Dystrophic calcification involving the right lobe of the liver. Scott Mittal Jr., MD Chest X-Ray 11/09/16 Signed Impressions: Service Date/Time: Wednesday, November 09, 2016 03:36 - CONCLUSION: Mild improvement in the bilateral interstitial infiltrates. Roland Maier MD Thoracic Spine MRI 11/07/16 Signed Impressions: Service Date/Time: Monday, November 07, 2016 10:23 - CONCLUSION: 1. There is a fracture of the T1 vertebral body and T5 vertebral body. No significant height loss is present and there is no retropulsion of any fracture fragment. No canal stenosis is present. 2. Please refer to today's chest CT examination report for description of the pulmonary findings. Jimmy Lara MD Renal Ultrasound 11/06/16 Signed Impressions: Service Date/Time: Sunday, November 06, 2016 22:24 - CONCLUSION: Probable complicated cyst midpole left kidney measuring 2.0 cm. Otherwise negative exam. No evidence of hydronephrosis. Scott Cantor MD Chest CT 11/06/16 Signed Impressions: Service Date/Time: Monday, November 07, 2016 10:50 - CONCLUSION: Severe diffuse geographic areas of groundglass attenuation bilaterally with trace bilateral pleural effusions. The pattern is nonspecific but can be seen with infection and ARDS among other etiologies. Jimmy Lara MD Head CT 1/18/17 2326 Signed Impressions: Service Date/Time: Friday, November 04, 2016 23:45 - CONCLUSION: No acute intracranial findings. Jimmy Felton MD Abdomen/Pelvis CT 11/04/16 0000 Signed Impressions: Service Date/Time: Friday, November 04, 2016 23:48 - CONCLUSION: Markedly dilated urinary bladder with mild-moderate bilateral hydronephrosis Jimmy Felton MD Last Impressions Chest X-Ray 11/07/16 0600 Signed Impressions: Service Date/Time: Monday, November 07, 2016 05:03 - CONCLUSION: Persistent and stable bilateral air space opacities in the medial lungs. Scott Cantor MD Thoracic Spine MRI 11/07/16 0000 Signed Impressions: Service Date/Time: Monday, November 07, 2016 10:23 - CONCLUSION: 1. There is a fracture of the T1 vertebral body and T5 vertebral body. No significant height loss is present and there is no retropulsion of any fracture fragment. No canal stenosis is present. 2. Please refer to today's chest CT examination report for description of the pulmonary findings. Jimmy Lara MD Renal Ultrasound 11/06/16 0000 Signed Impressions: Service Date/Time: Sunday, November 06, 2016 22:24 - CONCLUSION: Probable complicated cyst midpole left kidney measuring 2.0 cm. Otherwise negative exam. No evidence of hydronephrosis. Scott Cantor MD Chest CT 11/06/16 0000 Signed Impressions: Service Date/Time: Monday, November 07, 2016 10:50 - CONCLUSION: Severe diffuse geographic areas of groundglass attenuation bilaterally with trace bilateral pleural effusions. The pattern is nonspecific but can be seen with infection and ARDS among other etiologies. Jimmy Lara MD Head CT 11/04/16 2326 Signed Impressions: Service Date/Time: Friday, November 04, 2016 23:45 - CONCLUSION: No acute intracranial findings. Jimmy Felton MD Abdomen/Pelvis CT 11/04/16 0000 Signed Impressions: Service Date/Time: Friday, November 04, 2016 23:48 - CONCLUSION: Markedly dilated urinary bladder with mild-moderate bilateral hydronephrosis Jimmy Felton MD Objective Remarks GENERAL: Patient is 71 yo female, critically ill intubated, paralyzed, sedated. SKIN: Warm and dry. Multiple ecchymotic bruises HEAD: Normocephalic. EYES: No scleral icterus. No injection or drainage. NECK: Supple, trachea midline. No JVD or lymphadenopathy. [place] J C-collar in place . CARDIOVASCULAR: Regular rate and rhythm without murmurs, gallops, or rubs. CHEST: Subcutaneous emphysema felt over right chest wall RESPIRATORY: Breath sounds equal bilaterally , coarse breath sounds and crackles bilaterally. Right 20 [place] chest tube, to suction -40, R 10 F pigtail to -20, on Flolan GASTROINTESTINAL: Abdomen soft, non-tender, nondistended. NG tube in situ MUSCULOSKELETAL: No cyanosis, 1-2+ edema, all extremities. NEURO: Neuromuscularly paralyzed Procedures Right 20F chest tube placement Date of Insertion: Nov 23, 2016 Side: Right Location: Femoral A/P Assessment and Plan NEURO: Acute metabolic encephalopathy-resolved C7-T1 fracture (T1 vertebral body comminuted fracture, bilateral C7 pedicle fracture extending to the right facet. Remote history of anterior C6-C7 and C4-C5 fusion with plate placement. H/O Chronic pain syndrome Pain control -continue fentanyl and Versed infusion for ventilator synchrony. NM paralysis with Nimbex -CT head negative for acute findings. - 11/07 MRI spine: Fracture of the T1 vertebral body and T5 vertebral body. RESP: Acute hypoxemic / hypercapneic respiratory failure Pulmonary fibrosis/COPD exacerbation Sev ARDS Recurrent right sided pneumothorax Probable HCAP Pneumomediastinum History of asthma -Glidescope intubation 1 attempt 11/06 (Dr. Marquez) -Bronchodilators scheduled -Continue Solumedrol 60 mg IV every [address] Escalera, Pulmonary following -Continue Budesonide 0.5 neb q12. -CT chest showed diffuse GGO b/l -Sputum culture 11/19/16 -Aspergillus -Previously Extubated 11/16, placed on BiPAP 01/06 11/19 Reintubation 1 attempt (Dr Quintero), bronchial washings obtained, plan for tracheostomy when stable 11/19-Bronchial washings- Aspergillus 11/21 CT Chest-traction bronchiectasis, subcutaneous emphysema loculated air right lung base 11/22 CXR-stable pneumomediastinum -General surgery consult for tracheostomy 11/23-CXR Large right tension pneumothorax, right 20 [place] chest tube to suction 2/6 sedation, paralysis, FiO2 1.0, Flolan 8 mL/hr 11/24 10 F pigtail placed for recurrent PTX -- water seal chest tube, keep pigtail to suction -40. CXR in 4 hours. -- wean fio2 for goal spo2 > 85%. CVS A Flutter with RVR-resolved Fluid overload-resolved Shock -Monitor HR and BP keep MAP>65mmHg -Echo revealed EF 45-50%, diffuse hypokinesis, cardiology is following, Dr. Barrera -11/24 Follow-up troponin -Off Levophed -volume resuscitation has not improved organ pefusion, and has significantly worsened pulmonary function. will re-institute forced diuresis. GI: Constipation-resolved Abdominal Pain Severe protein calorie malnutrition -Elevated LFT's, check US liver-no acute abnormality .dystrophic calcification right lobe, common bile duct within normal limits - IV Protonix for GI prophylaxis - TF-Glucerna 1.5 @ 50cc/hr (goal) - NGT tube-reinitiate tube feeds Glucerna 1.5 at 50 cc an hour per assembly riveter recommendation -Cdiff antigen 11/21- negative -11/19 CT- abdomen -no acute findings FEN/RENAL: Hydronephrosis from urinary retention/obstruction Hypernatremia Acute intravascular Hypervolemia -Monitor renal function , I/O's, BUN elevation may in part be secondary to steroids. -Renal US: Probable complicated cyst midpole left kidney measuring 2.0 cm. No evidence of hydronephrosis. - -restart lasix. 80mg iv x 1. ID: Healthcare associated pneumonia multilobar Sepsis Persistent fevers Persistent Leukocytosis -Acetaminophen 650mg for temp greater than 101.0 -Sputum culture11/08 -budding yeast with pseudohyphae -Sputum Culture 11/09-Rare gram negative robin -Blood cultures11/08- NGTD -Abx per ID, Dr. Phan, management of antibiotic regimen (Micafungin, Voriconazole,Atrezonam). -Cdiff obtained 11/21. Pancultured 11/14, pending Microbiology: 11/05blood culture 2 setsno growth today 11/07blood cultureno growth today 11/08blood culture 2 setsno growth today 11/09pending culturenegative 11/14blood culture 2 sets pending 11/14sputum culturepending 11/14urinalysis without evidence of infection. -US11/12 bilateral upper and lower extremities-superficial nonocclusive thrombus right cephalic vein /-bronchial washings- moderate staph aureus, Aspergillus -Cdiff negative -11/20- repeat blood and urine cultures-NGTD HEME: -Monitor CBC, CMP ENDO: Hypokalemia Hyperglycemia of critical illness -Electrolyte replacement per protocol. Sliding scale insulin if needed -On [place] Thyroid 90mg daily, TSH: 0.123 -Glucose monitoring every 6 hours per ICU protocol -poorly controled glycemic control, despite high dose insulin SSI. - d/c SSI and start insulin drip, #4 scale. MSK: Clinical illness polyneuropathy -PT-functional maintenance daily - Multi-Podus boots PROPH: -Bilateral lower extremity SCDs. Subcutaneous heparin 5000 q 8 for DVT prophylaxis. IV Protonix for GI prophylaxis LINES: -central line 11/25, PIV's x 2 This is a 71-year-old critically ill female with severe ARDS, with concomitant pulmonary fibrosis, with recent pneumomediastinum, and recent spontaneous tension pneumothorax. The patient is not a candidate for prone positioning secondary to concomitant pulmonary disease processes. Prognosis is poor, palliative medicine consulted to discuss goals of care with family. I talked to the patient's today. I do not think this is a survivable insult. This patient remains critically ill with one or more organ systems which are or may become a threat to life. I have spent in excess of 36 minutes discontinuously in the care and management of this patient. This time is exclusive of procedures, and includes, but is not limited to, evaluation of the patient, review of the medical record, discussions with family, consultants, nursing staff, or respiratory therapy, and documentation in the medical record. Rome Da Silva MD Nov 26, 2016 11:44
--- NOTE | 2016-11-26 12:23 | HHI.IDPN ---
Note Infectious Disease Note Notes reviewed. On 90% FIO2. Afib. Non responsive. Sedated/paralysed. Afebrile WBC lower. Has mediastinal air. Also Sub Q emphysema. Chest tube in place. at bedside. Has decided to transition to palliative care. PAST MEDICAL HISTORY 1. Asthma. 2. Pulmonary fibrosis. 3. Gastroesophageal reflux disease. 4. Hemochromatosis. 5. Acid reflux. 6. Cholecystectomy. 7. Lumbar spine surgery. 8. Cervical spine surgery. 9. Hysterectomy. 10. Left parotid gland surgery. 11. Breast reduction. 12. Tonsillectomy. 13. Anterior cervical fusion of C6-C7. ALLERGIES 1. BETADINE. 2. IODINE. 3. THE PATIENT'S REPORTS SHE GETS UPSET STOMACH WITH CIPROFLOXACIN BUT THAT SHE IS ABLE TO TOLERATE IV CIPROFLOXACIN. ANTIBIOTICS: Voriconazole. Aztreonam. Micafungin. OBJECTIVE: Vital Signs Date Time Temp Pulse Resp B/P Pulse Ox O2 Delivery O2 Flow Rate FiO2 11/26/16 10:54 90 11/26/16 10:54 96 90 11/26/16 10:00 74 11/26/16 08:00 97.4 75 26 112/60 97 11/26/16 08:00 95 11/26/16 08:00 75 11/26/16 07:54 98 95 11/26/16 06:00 74 11/26/16 04:09 96 100 11/26/16 04:00 77 11/26/16 04:00 100 11/26/16 04:00 97.8 77 26 119/60 97 11/26/16 02:00 76 11/26/16 00:36 93 100 11/26/16 00:00 79 11/26/16 00:00 97.9 79 26 121/58 93 11/26/16 00:00 100 11/25/16 22:00 100 11/25/16 22:00 87 11/25/16 20:12 90 100 11/25/16 20:00 97.9 107 26 132/66 89 11/25/16 20:00 100 11/25/16 20:00 107 11/25/16 18:09 80 15.00 11/25/16 18:00 106 11/25/16 16:37 99 100 11/25/16 16:00 90 11/25/16 16:00 98.0 110 26 101/60 30 2/8/17 16:00 110 11/25/16 14:00 119 Laboratory Tests Test 11/25/16 11/26/16 05:50 06:40 White Blood Count 19.4 TH/MM3 8.3 TH/MM3 Red Blood Count 3.05 MIL/MM3 2.41 MIL/MM3 Hemoglobin 10.0 GM/DL 8.1 GM/DL Hematocrit 31.9 % 25.5 % Mean Corpuscular Volume 104.5 FL 106.0 FL Mean Corpuscular Hemoglobin 32.8 PG 33.6 PG Mean Corpuscular Hemoglobin 31.4 % 31.7 % Concent Red Cell Distribution Width 15.4 % 15.3 % Platelet Count 91 TH/MM3 40 TH/MM3 Mean Platelet Volume 11.2 FL 12.3 FL Neutrophils (%) (Auto) 96.5 % Lymphocytes (%) (Auto) 2.7 % Monocytes (%) (Auto) 0.7 % Eosinophils (%) (Auto) 0.0 % Basophils (%) (Auto) 0.1 % Neutrophils # (Auto) 8.0 TH/MM3 Lymphocytes # (Auto) 0.2 TH/MM3 Monocytes # (Auto) 0.1 TH/MM3 Eosinophils # (Auto) 0.0 TH/MM3 Basophils # (Auto) 0.0 TH/MM3 CBC Comment AUTO DIFF Differential Comment AUTO DIFF CONFIRMED Platelet Estimate LOW Platelet Morphology Comment NORMAL Tear Drop Cells 1+ Laboratory Tests Test 11/25/16 11/25/16 11/26/16 05:50 12:05 08:30 Sodium Level 156 MEQ/L 156 MEQ/L 147 MEQ/L Potassium Level 5.6 MEQ/L 4.2 MEQ/L 2.9 MEQ/L Chloride Level 117 MEQ/L 116 MEQ/L 109 MEQ/L Carbon Dioxide Level 33.2 MEQ/L 31.0 MEQ/L 30.8 MEQ/L Anion Gap 6 MEQ/L 9 MEQ/L 7 MEQ/L Blood Urea Nitrogen 57 MG/DL 59 MG/DL 60 MG/DL Creatinine 1.39 MG/DL 1.44 MG/DL 1.55 MG/DL Estimat Glomerular Filtration 37 ML/MIN 36 ML/MIN 33 ML/MIN Rate Random Glucose 160 MG/DL 307 MG/DL 268 MG/DL Calcium Level 8.1 MG/DL 8.0 MG/DL 7.1 MG/DL Phosphorus Level 6.9 MG/DL Magnesium Level 2.7 MG/DL 2.1 MG/DL Protein Corrected Calcium 8.2 MG/DL Total Bilirubin 0.2 MG/DL Aspartate Amino Transf 79 U/L (AST/SGOT) Alanine Aminotransferase 420 U/L (ALT/SGPT) Alkaline Phosphatase 143 U/L Total Protein 5.1 GM/DL Albumin 1.5 GM/DL Microbiology Date/Time Procedure Status Source Growth 11/19/16 18:00 Gram Stain Received Sputum Endotracheal Pending 11/19/16 18:00 Sputum Culture Received Sputum Endotracheal Pending 11/19/16 18:00 Gram Stain - Final Resulted Bronchial Washings Other 11/19/16 18:00 Bronchial Culture - Preliminary Resulted Aspergillus Species 11/20/16 13:36 Aerobic Blood Culture - Preliminary Resulted Blood Peripheral NO GROWTH IN 2 DAYS 11/20/16 13:36 Anaerobic Blood Culture - Preliminary Resulted Blood Peripheral NO GROWTH IN 2 DAYS 11/20/16 13:41 Aerobic Blood Culture - Preliminary Resulted Blood Peripheral NO GROWTH IN 2 DAYS 11/20/16 13:41 Anaerobic Blood Culture - Preliminary Resulted Blood Peripheral NO GROWTH IN 2 DAYS 11/20/16 13:45 Urine Culture - Final Complete Urine Catheterized Urine NO GROWTH IN 48 HOURS. IMAGING: Chest X-Ray 11/26/16 0600 Signed Impressions: Service Date/Time: November 03:16 - CONCLUSION: Decrease in subcutaneous emphysema right chest otherwise stable exam. Jerman Dale MD Chest X-Ray 11/25/16 0600 Signed Impressions: Service Date/Time: Friday, November 25, 2016 05:40 - CONCLUSION: Worsening appearance of the chest. Jerman Dale MD Chest X-Ray 11/24/16 1500 Signed Impressions: Service Date/Time: Thursday, November 24, 2016 14:56 - CONCLUSION: 1. Right-sided pneumothorax is definitely no better and actually be slightly worsened compared to prior. Thoracostomy tube is stable in position. 2. Otherwise support tubes are also stable in position. 3. Stable atelectatic changes just above left hemidiaphragm with stable position of the heart and mediastinal structures. 4. Extensive deep tissue and subcutaneous emphysematous changes about the hemithoraces bilaterally. These are stable. Cal Davis MD Chest X-Ray 11/24/16 0600 Signed Impressions: Service Date/Time: Thursday, November 24, 2016 04:30 - CONCLUSION: Large right pneumothorax. Findings discussed with Merari, the nurse taking care of the patient at 5:44am on 11/24/16. Jerman Dale MD Chest X-Ray 11/24/16 0000 Signed Impressions: Service Date/Time: Thursday, November 24, 2016 16:31 - CONCLUSION: Interval placement of a small bore right-sided chest tube with decrease in the size of the right pneumothorax. Rex Corcoran MD Chest X-Ray 11/24/16 0000 Signed Impressions: Service Date/Time: Thursday, November 24, 2016 12:16 - CONCLUSION: 1. Small to moderate right sided pneumothorax now noted with mediastinal shift to the left. 2. The right-sided chest tube remains in place. 3. Extensive subcutaneous emphysema is again noted bilaterally. Rex Corcoran MD Chest X-Ray 11/24/16 0000 Signed Impressions: Service Date/Time: Thursday, November 24, 2016 05:41 - CONCLUSION: Reexpansion of the right lung with chest tube in place. Jerman Dale MD Chest X-Ray 11/24/16 0000 Signed Impressions: Service Date/Time: Thursday, November 24, 2016 05:07 - CONCLUSION: Large right-sided pneumothorax with tension component suspected. Chest tube needs to be repositioned. Findings discussed with Merari the nurse taking care of the patient at 5:45 AM on August 24, 2017. Jerman Dale MD PHYSICAL EXAMINATION GENERAL: Unresponsive. On the vent. HEENT: No icterus. Dry mucosa. NECK: No adenopathy or swelling. Neck collar in place. LUNGS: Bilateral rhonchi same. HEART: Regular S1 and S2. No audible murmurs. ABDOMEN: Decreased bowel sounds, soft. EXTREMITIES: No edema. Pulses 2+ radial and dorsalis pedis. SKIN: No rash. NEUROLOGIC: non focal. PSYCHIATRIC: Unresponsive. IMPRESSION 1. Fever, questionable etiology. Temp improved initially after stopping beta lactam abx. 2. Acute respiratory failure. Extubated. Reintubated. Ventilator dependent. 3. Leukocytosis. ? due to PNA. WBC still elevated. Also has superficial distal r. cephalic vein thrombus. Also on Solumedrol. Abnormal CXR. also ? result of pulmonary fibrosis. 4. Sepsis on admission indicated by elevated heart rate, elevated temperature, elevated white blood cell count. Source unclear but likely pulmonary. 5. Abnormal chest x-ray with bilateral interstitial infiltrates suggesting possible pneumonia versus COPD or fibrosis. 6. Aspergillus PNA. Very critically ill. RECOMMENDATIONS 1. Continue Aztreonam. 2. Continue Micafungin. 3. Continue Voriconazole. 4. Monitor clinical status. Discussed with and RN. Roberto Phan MD Nov 26, 2016 12:22
[2016-11-26] MEDS: MIDAZOLAM 100 MG/NS 100 ML DRIP Premix IV SCH (13:59)
[2016-11-26] MEDS: PANTOPRAZOLE SODIUM 40 MG VIAL IV PUSH SCH (15:00)
--- NOTE | 2016-11-26 15:09 | RADRPT ---
EXAM DATE/TIME: 11/26/2016 14:03 [facility] COMPARISON: CHEST SINGLE AP, November 26, 2016, 3:16. INDICATIONS : S/P chest tube to water seal. Follow up right pneumothorax. MEDICAL HISTORY : Sepsis. SURGICAL HISTORY : Unobtainable. ENCOUNTER: Subsequent ACUITY: 3 weeks PAIN SCORE: Non-responsive. LOCATION: Bilateral chest FINDINGS: A single AP semierect view of the chest was obtained and again demonstrates the endotracheal tube in place with the tip 3 cm above the dhara. The nasogastric tube remains in place. A right subclavian c entral venous line remains in place as does the right-sided chest tube. The right apical pneumothorax is not significantly changed. This measures up to approximately 1.7 cm in greatest diameter. There i s no mediastinal shift. Streaky opacity remains in the perihilar regions and lung bases. The heart si ze remains within normal limits. There is no definite effusion. CONCLUSION: 1. No significant change in the small right apical pneumothorax. 2. The right-sided chest tube remains in place and the patient remains intubated. 3. CT opacity remains in both lungs. Rex Corcoran MD on November 26, 2016 at 15:05 Board Certified Radiologist. This report was verified electronically.
--- NOTE | 2016-11-26 15:59 | HHI.PR ---
Subjective Remarks Respiratory failure Sepsis Pulmonary fibrosis sedated on the vent Objective Vital Signs Date Time Temp Pulse Resp B/P Pulse Ox O2 Delivery O2 Flow Rate FiO2 11/26/16 12:00 82 11/26/16 12:00 90 11/26/16 12:00 97.5 82 26 104/58 96 11/26/16 10:54 90 11/26/16 10:54 96 90 11/26/16 10:00 74 11/26/16 08:00 97.4 75 26 112/60 97 11/26/16 08:00 95 11/26/16 08:00 75 11/26/16 07:54 98 95 11/26/16 06:00 74 11/26/16 04:09 96 100 11/26/16 04:00 77 11/26/16 04:00 100 11/26/16 04:00 97.8 77 26 119/60 97 11/26/16 02:00 76 11/26/16 00:36 93 100 11/26/16 00:00 79 11/26/16 00:00 97.9 79 26 121/58 93 11/26/16 00:00 100 11/25/16 22:00 100 11/25/16 22:00 87 11/25/16 20:12 90 100 11/25/16 20:00 97.9 107 26 132/66 89 11/25/16 20:00 100 11/25/16 20:00 107 11/25/16 18:09 80 15.00 11/25/16 18:00 106 11/25/16 16:37 99 100 11/25/16 16:00 90 11/25/16 16:00 98.0 110 26 101/60 30 11/25/16 16:00 110 I/O 11/25/16 11/25/16 11/25/16 11/26/16 11/26/16 11/26/16 07:00 15:00 23:00 07:00 15:00 23:00 Intake Total 1620 ml 1386 ml 2851 ml 2574 ml Output Total 550 ml 710 ml 570 ml 660 ml Balance 1070 ml 676 ml 2281 ml 1914 ml IV Total 1151 ml 772 ml 2581 ml 2228 ml Tube Feeding 349 ml 514 ml 210 ml 286 ml Other 120 ml 100 ml 60 ml 60 ml Output Urine Total 500 ml 650 ml 500 ml 650 ml Chest Tube Drainage Total 50 ml 60 ml 70 ml 10 ml # Bowel Movements 1 0 2 0 Result Diagram: 11/26/16 0640 11/26/16 0830 Imaging Last Impressions Chest X-Ray 11/26/16 1400 Signed Impressions: Service Date/Time: November 14:03 - CONCLUSION: 1. No significant change in the small right apical pneumothorax. 2. The right-sided chest tube remains in place and the patient remains intubated. 3. CT opacity remains in both lungs. Rex Corcoran MD Chest CT 11/21/16 0000 Signed Impressions: Service Date/Time: Monday, November 21, 2016 16:14 - CONCLUSION: 1. Improvement of previous diffuse groundglass opacity. Probable developing fibrotic changes at the bases with some traction bronchiectasis. 2. Extensive air leak with pneumomediastinum and subcutaneous emphysema. There is also some loculated air at the right lung base that is new since the prior examination. This could represent a pneumatocele measuring 4.5 cm. Matt Wolf MD Abdomen X-Ray 11/19/16 0000 Signed Impressions: Service Date/Time: November 22:26 - CONCLUSION: Nasogastric tube has its tip near the gastric outlet. Nonobstructive bowel gas pattern. Jimmy Hoffmann MD Abdomen CT 11/19/16 0000 Signed Impressions: Service Date/Time: Sunday, November 20, 2016 04:24 - CONCLUSION: 1. No acute finding is identified within the abdomen on this noncontrast examination. 2. There is severe airspace consolidation/groundglass attenuation in both lung bases. Pneumomediastinum is present and there is a small right pneumothorax. Jimmy Lara MD Upper Extremity Ultrasound 11/11/16 0000 Signed Impressions: Service Date/Time: Friday, November 11, 2016 21:51 - CONCLUSION: 1. No evidence of DVT. 2. Focal superficial thrombosis involving the distal right cephalic vein. Roland Maier MD Lower Extremity Ultrasound 11/11/16 0000 Signed Impressions: Service Date/Time: Friday, November 11, 2016 21:22 - CONCLUSION: Negative exam with no evidence of deep venous thrombosis. Rex Corcoran MD Liver Ultrasound 11/09/16 0000 Signed Impressions: Service Date/Time: Wednesday, November 09, 2016 08:03 - CONCLUSION: 1. No acute abnormality. 2. Prior cholecystectomy. Common bile duct is within the normal range in terms of size for patient status post cholecystectomy. 3. Dystrophic calcification involving the right lobe of the liver. Scott Mittal Jr., MD Thoracic Spine MRI 11/07/16 0000 Signed Impressions: Service Date/Time: Monday, November 07, 2016 10:23 - CONCLUSION: 1. There is a fracture of the T1 vertebral body and T5 vertebral body. No significant height loss is present and there is no retropulsion of any fracture fragment. No canal stenosis is present. 2. Please refer to today's chest CT examination report for description of the pulmonary findings. Jimmy Lara MD Renal Ultrasound 11/06/16 0000 Signed Impressions: Service Date/Time: Sunday, November 06, 2016 22:24 - CONCLUSION: Probable complicated cyst midpole left kidney measuring 2.0 cm. Otherwise negative exam. No evidence of hydronephrosis. Scott Cantor MD Head CT 11/04/16 2326 Signed Impressions: Service Date/Time: Friday, November 04, 2016 23:45 - CONCLUSION: No acute intracranial findings. Jimmy Felton MD Abdomen/Pelvis CT 11/04/16 0000 Signed Impressions: Service Date/Time: Friday, November 04, 2016 23:48 - CONCLUSION: Markedly dilated urinary bladder with mild-moderate bilateral hydronephrosis Jimmy Felton MD Procedures GENERAL: SKIN: Warm and dry. HEAD: Atraumatic. Normocephalic. EYES: Pupils equal and round. No scleral icterus. No injection or drainage. ENT: No nasal bleeding or discharge. Mucous membranes pink and moist. NECK: Trachea midline. No JVD. CARDIOVASCULAR: Regular rate and rhythm. RESPIRATORY: No accessory muscle use. Clear to auscultation. Breath sounds equal bilaterally. GASTROINTESTINAL: Abdomen soft, non-tender, nondistended. Hepatic and splenic margins not palpable. MUSCULOSKELETAL: Extremities without clubbing, cyanosis, or edema. No obvious deformities. NEUROLOGICAL: Awake and alert. No obvious cranial nerve deficits. Motor grossly within normal limits. Five out of 5 muscle strength in the arms and legs. Normal speech. PSYCHIATRIC: Appropriate mood and affect; insight and judgment normal. Objective Remarks GENERAL: SKIN: Warm and dry. HEAD: Atraumatic. Normocephalic. EYES: Pupils equal and round. No scleral icterus. No injection or drainage. ENT: No nasal bleeding or discharge. Mucous membranes pink and moist. NECK: Trachea midline. No JVD. CARDIOVASCULAR: Regular rate and rhythm. RESPIRATORY: No accessory muscle use. Clear to auscultation. Breath sounds equal bilaterally. GASTROINTESTINAL: Abdomen soft, non-tender, nondistended. Hepatic and splenic margins not palpable. MUSCULOSKELETAL: Extremities without clubbing, cyanosis, or edema. No obvious deformities. NEUROLOGICAL: Awake and alert. No obvious cranial nerve deficits. Motor grossly within normal limits. Five out of 5 muscle strength in the arms and legs. Normal speech. PSYCHIATRIC: Appropriate mood and affect; insight and judgment normal. Assessment and Plan Problem List: (1) Sepsis Status: Acute (2) Pulmonary fibrosis Status: Acute Assessment and Plan respiraory failure p;an vent support antibx per ID Onward poor Lali Escalera MD Nov 26, 2016 15:59
[2016-11-26] MEDS: RESP: ALBUTEROL 2.5 MG/IPRATROPIUM 0.5 MG NEB (PRN) NEB (16:56)
[2016-11-26] MEDS ORDERED: fentaNYL CITRATE 250 MCG/5 ML AMP IV PUSH PRN (17:45)
[2016-11-26] MEDS ORDERED: MIDAZOLAM HCL 5 MG/ML VIAL (1 ML) IV ONE ×2 (17:45→18:00)
[2016-11-26] MEDS ORDERED: MIDAZOLAM 100 MG/ML INJ 100 ML IV SCH (17:45)
[2016-11-26] MEDS ORDERED: fentaNYL DRIP 250 ML IV SCH (17:45)
[2016-11-26] MEDS ORDERED: MIDAZOLAM HCL 5 MG/ML VIAL (1 ML) IV PRN (17:45)
[2016-11-26] MEDS ORDERED: MORPHINE SULFATE 4 MG/ML INJ IV PUSH PRN (18:00)
--- NOTE | 2016-11-26 18:42 | HHI.HCPN ---
Reason for visit a. To assist with evaluation and management of symptoms including: dyspnea, pain. b. To assist medical decision maker(s) with: better understanding of current medical conditions; weighing benefits/burdens of medical treatment options; making medical treatment decisions. . Subjective/Interval History Call from Dr. Da Silva to report Anne (spouse) feels her condition is not improving and wishes to proceed with withdrawal of life support tonight after his children arrive later this evening. Discussed with nurse, Shama. Patient seen and examined in ICU. and his son at bedside. Patient remains sedated (Fentanyl 250 and Versed) on [facility] vent FiO2 100%. Off Nimbex. Hemoglobin 8.1, platelets dropped to 41. Creatinine continues to rise now 1.55. Chest xray no improvement. . Family/friend interactions Met with Dr. Rodírguez and his son at bedside. He again verbalizes his would not want to live like this and he wants to honor her wishes to allow to occur naturally. He knows we are "just prolonging her dying now." Anticipatory guidance provided regarding withdrawal of life support. He does not want her to suffer any longer. He requests we take into account her chronic pain and likely higher tolerance of medications when ordering comfort meds. He declines [employer] crop [employer] visit, as they visited earlier today. Declines hospice. . Advance Directives Living Will: Copy in medical record Advance Directive Specifics Date completed: 10/02/04, updated HCS 10/15/2014. . Health Care Surrogate(s): Living will in chart dated 2013, names spouse Luis Enrique Rodríguez as primary designated healthcare surrogate and Mao Wraysey as alternate surrogate. . Documented care wishes: Living will indicates that should the patient have a terminal condition and her attending physician is determined that there will be no recovery from such condition and the is imminent she directs that the following NOT be done, given or administered: * CPR * nutritional support by other than oral means * hydration by other than oral means * antibiotics * transfusion of blood products * invasive procedures and diagnostic studies including but not limited to blood test spinal taps x-rays and scans. . Objective Vital Signs Date Time Temp Pulse Resp B/P Pulse Ox O2 Delivery O2 Flow Rate FiO2 11/26/16 16:59 92 100 11/26/16 16:00 97.5 81 27 105/56 90 11/26/16 16:00 90 11/26/16 16:00 81 11/26/16 14:00 79 11/26/16 12:00 82 11/26/16 12:00 90 11/26/16 12:00 97.5 82 26 104/58 96 11/26/16 10:54 90 11/26/16 10:54 96 90 11/26/16 10:00 74 11/26/16 08:00 97.4 75 26 112/60 97 11/26/16 08:00 95 11/26/16 08:00 75 11/26/16 07:54 98 95 11/26/16 06:00 74 11/26/16 04:09 96 100 11/26/16 04:00 77 11/26/16 04:00 100 11/26/16 04:00 97.8 77 26 119/60 97 11/26/16 02:00 76 11/26/16 00:36 93 100 11/26/16 00:00 79 11/26/16 00:00 97.9 79 26 121/58 93 11/26/16 00:00 100 11/25/16 22:00 100 11/25/16 22:00 87 11/25/16 20:12 90 100 11/25/16 20:00 97.9 107 26 132/66 89 11/25/16 20:00 100 11/25/16 20:00 107 Intake & Output 11/26/16 11/26/16 07:00 19:00 Intake Total 5425 ml 1237 ml Output Total 1230 ml 500 ml Balance 4195 ml 737 ml IV Total 4809 ml 668 ml Tube Feeding 496 ml 469 ml Other 120 ml 100 ml Output Urine Total 1150 ml 500 ml Chest Tube Drainage Total 80 ml 0 ml # Bowel Movements 2 0 Physical Exam CONSTITUTIONAL/GENERAL: This is an adequately nourished patient, sedated on vent. TUBES/LINES/DRAINS: ETT, NG tube on left, [place] collar, bilateral soft wrist restraints, Sanders, SCDs SKIN: No jaundice, rashes, or lesions. Ecchymoses on upper extremities. No wounds seen anteriorly. Skin temperature appropriate. Not diaphoretic. EYES: eyes closed. ENT: Unable to assess hearing. Nose without bleeding or purulent drainage. Difficult to visualize due to tubes. NECK: [place] collar in place. CARDIOVASCULAR: tachycardic. RESPIRATORY/CHEST: Symmetric, labored respirations on vent. Using accessory muscles to breathe. Breath sounds diminished right >left. Chest tube x 2 on right. SubQ emphysema. GASTROINTESTINAL: Abdomen soft, non-tender, nondistended. No guarding. Bowel sounds present. GENITOURINARY: Without palpable bladder distension. Sanders catheter in place. MUSCULOSKELETAL: Extremities with edema. No mottling or clubbing. NEUROLOGICAL: Sedated on vent. PSYCHIATRIC:Sedated on vent. . Diagnostic Tests Laboratory Laboratory Tests Test 11/23/16 11/23/16 11/24/16 11/24/16 19:01 20:14 06:35 08:12 White Blood Count 21.6 TH/MM3 (4.0-11.0) Red Blood Count 2.76 MIL/MM3 (4.00-5.30) Hemoglobin 9.0 GM/DL (11.6-15.3) Hematocrit 28.3 % (35.0-46.0) Mean Corpuscular Volume 102.5 FL (80.0-100.0) Mean Corpuscular Hemoglobin 32.7 PG (27.0-34.0) Mean Corpuscular Hemoglobin 31.9 % Concent (32.0-36.0) Red Cell Distribution Width 14.7 % (11.6-17.2) Platelet Count 131 TH/MM3 (150-450) Mean Platelet Volume 10.9 FL (7.0-11.0) Neutrophils (%) (Auto) 94.5 % (16.0-70.0) Lymphocytes (%) (Auto) 3.8 % (9.0-44.0) Monocytes (%) (Auto) 1.3 % (0.0-8.0) Eosinophils (%) (Auto) 0.0 % (0.0-4.0) Basophils (%) (Auto) 0.4 % (0.0-2.0) Neutrophils # (Auto) 20.4 TH/MM3 (1.8-7.7) Lymphocytes # (Auto) 0.8 TH/MM3 (1.0-4.8) Monocytes # (Auto) 0.3 TH/MM3 (0-0.9) Eosinophils # (Auto) 0.0 TH/MM3 (0-0.4) Basophils # (Auto) 0.1 TH/MM3 (0-0.2) CBC Comment AUTO DIFF Differential Total Cells 100 Counted Neutrophils % (Manual) 90 % (16-70) Band Neutrophils % 5 % (0-6) Lymphocytes % 4 % (9-44) Monocytes % 1 % (0-8) Neutrophils # (Manual) 20.5 TH/MM3 (1.8-7.7) Differential Comment FINAL DIFF MANUAL Platelet Estimate LOW (NORMAL) Platelet Morphology Comment NORMAL (NORMAL) Prothrombin Time 11.1 SEC (9.8-11.6) Prothromb Time International 1.0 RATIO Ratio Sodium Level 154 MEQ/L 152 MEQ/L (136-145) (136-145) Potassium Level 4.5 MEQ/L 3.8 MEQ/L (3.5-5.1) (3.5-5.1) Chloride Level 111 MEQ/L 112 MEQ/L (98-107) (98-107) Carbon Dioxide Level 29.1 MEQ/L 31.0 MEQ/L (21.0-32.0) (21.0-32.0) Anion Gap 14 MEQ/L (5-15) 9 MEQ/L (5-15) Blood Urea Nitrogen 47 MG/DL (7-18) 49 MG/DL (7-18) Creatinine 1.53 MG/DL 1.16 MG/DL (0.50-1.00) (0.50-1.00) Estimat Glomerular Filtration 34 ML/MIN (>89) 46 ML/MIN (>89) Rate Random Glucose 346 MG/DL 250 MG/DL (74-106) (74-106) Lactic Acid Level 7.3 mmol/L (0.4-2.0) Calcium Level 7.2 MG/DL 7.4 MG/DL (8.5-10.1) (8.5-10.1) Protein Corrected Calcium 8.2 MG/DL 8.5 MG/DL (8.5-10.1) (8.5-10.1) Phosphorus Level 6.2 MG/DL 3.7 MG/DL (2.5-4.9) (2.5-4.9) Magnesium Level 2.5 MG/DL 2.3 MG/DL (1.5-2.5) (1.5-2.5) Total Bilirubin 0.4 MG/DL 0.4 MG/DL (0.2-1.0) (0.2-1.0) Aspartate Amino Transf 295 U/L (15-37) 495 U/L (15-37) (AST/SGOT) Alanine Aminotransferase 347 U/L (10-53) 852 U/L (10-53) (ALT/SGPT) Alkaline Phosphatase 117 U/L 123 U/L (45-117) (45-117) Total Creatine Kinase 84 U/L (26-192) Troponin I 0.06 NG/ML 0.08 NG/ML (0.02-0.05) (0.02-0.05) Total Protein 5.2 GM/DL 5.2 GM/DL (6.4-8.2) (6.4-8.2) Albumin 1.6 GM/DL 1.6 GM/DL (3.4-5.0) (3.4-5.0) Blood Gas Puncture Site RT BRACHIAL RT RADIAL Blood Gas Patient Temperature 98.6 98.6 Blood Gas HCO3 28 mmol/L 28 mmol/L (22-26) (22-26) Blood Gas Base Excess 3.2 mmol/L 3.7 mmol/L (-2-2) (-2-2) Blood Gas Oxygen Saturation 91 % (90-100) 91 % (90-100) Arterial Blood pH 7.36 7.39 (7.380-7.420) (7.380-7.420) Arterial Blood Partial 52 mmHg (38-42) 48 mmHg (38-42) Pressure CO2 Arterial Blood Partial 76 mmHg 71 mmHg Pressure O2 (61-120) (61-120) Arterial Blood Oxygen Content 12.0 Vol % 13.8 Vol % (12.0-20.0) (12.0-20.0) Arterial Blood 1.2 % (0-4) 1.0 % (0-4) Carboxyhemoglobin Arterial Blood Methemoglobin 1.2 % (0-2) 1.2 % (0-2) Blood Gas Hemoglobin 9.3 G/DL 10.8 G/DL (12.0-16.0) (12.0-16.0) Oxygen Delivery Device VENTILATOR VENTILATOR Blood Gas Ventilator Setting PCV PC/AC Blood Gas Inspired Oxygen 100 % 100 % Test 11/24/16 11/25/16 11/25/16 11/25/16 08:32 05:01 05:50 06:44 White Blood Count 16.3 TH/MM3 19.4 TH/MM3 (4.0-11.0) (4.0-11.0) Red Blood Count 2.76 MIL/MM3 3.05 MIL/MM3 (4.00-5.30) (4.00-5.30) Hemoglobin 9.0 GM/DL 10.0 GM/DL (11.6-15.3) (11.6-15.3) Hematocrit 27.4 % 31.9 % (35.0-46.0) (35.0-46.0) Mean Corpuscular Volume 99.4 FL 104.5 FL (80.0-100.0) (80.0-100.0) Mean Corpuscular Hemoglobin 32.7 PG 32.8 PG (27.0-34.0) (27.0-34.0) Mean Corpuscular Hemoglobin 32.9 % 31.4 % Concent (32.0-36.0) (32.0-36.0) Red Cell Distribution Width 14.5 % 15.4 % (11.6-17.2) (11.6-17.2) Platelet Count 96 TH/MM3 91 TH/MM3 (150-450) (150-450) Mean Platelet Volume 10.8 FL 11.2 FL (7.0-11.0) (7.0-11.0) Lactic Acid Level 3.5 mmol/L (0.4-2.0) Phosphorus Level 3.4 MG/DL 6.9 MG/DL (2.5-4.9) (2.5-4.9) Magnesium Level 2.2 MG/DL 2.7 MG/DL (1.5-2.5) (1.5-2.5) Blood Gas Puncture Site RT RADIAL RT RADIAL Blood Gas Patient Temperature 98.6 98.6 Blood Gas HCO3 31 mmol/L 32 mmol/L (22-26) (22-26) Blood Gas Base Excess 0.4 mmol/L 1.9 mmol/L (-2-2) (-2-2) Blood Gas Oxygen Saturation 94 % (90-100) 95 % (90-100) Arterial Blood pH 7.02 7.05 (7.380-7.420) (7.380-7.420) Arterial Blood Partial 127 mmHg 120 mmHg Pressure CO2 (38-42) (38-42) Arterial Blood Partial 109 mmHg 115 mmHg Pressure O2 (61-120) (61-120) Arterial Blood Oxygen Content 14.4 Vol % 20.2 Vol % (12.0-20.0) (12.0-20.0) Arterial Blood 0.8 % (0-4) 0.8 % (0-4) Carboxyhemoglobin Arterial Blood Methemoglobin 1.2 % (0-2) 1.3 % (0-2) Blood Gas Hemoglobin 10.7 G/DL 15.1 G/DL (12.0-16.0) (12.0-16.0) Oxygen Delivery Device VENTILATOR VENTILATOR Blood Gas Ventilator Setting PC/AC PC/AC Blood Gas Inspired Oxygen 90 % 90 % Sodium Level 156 MEQ/L (136-145) Potassium Level 5.6 MEQ/L (3.5-5.1) Chloride Level 117 MEQ/L (98-107) Carbon Dioxide Level 33.2 MEQ/L (21.0-32.0) Anion Gap 6 MEQ/L (5-15) Blood Urea Nitrogen 57 MG/DL (7-18) Creatinine 1.39 MG/DL (0.50-1.00) Estimat Glomerular Filtration 37 ML/MIN (>89) Rate Random Glucose 160 MG/DL (74-106) Calcium Level 8.1 MG/DL (8.5-10.1) Test 11/25/16 11/25/16 11/25/16 11/26/16 08:02 12:05 12:40 06:40 Blood Gas Puncture Site LT RADIAL RT RADIAL Blood Gas Patient Temperature 98.6 98.6 Blood Gas HCO3 29 mmol/L 28 mmol/L (22-26) (22-26) Blood Gas Base Excess 0.8 mmol/L -0.1 mmol/L (-2-2) (-2-2) Blood Gas Oxygen Saturation 91 % (90-100) 87 % (90-100) Arterial Blood pH 7.13 7.16 (7.380-7.420) (7.380-7.420) Arterial Blood Partial 92 mmHg (38-42) 81 mmHg (38-42) Pressure CO2 Arterial Blood Partial 74 mmHg 62 mmHG Pressure O2 (61-120) (61-120) Arterial Blood Oxygen Content 13.1 Vol % 14.8 Vol % (12.0-20.0) (12.0-20.0) Arterial Blood 1.1 % (0-4) 2.0 % (0-4) Carboxyhemoglobin Arterial Blood Methemoglobin 1.1 % (0-2) 2.1 % (0-2) Blood Gas Hemoglobin 10.1 G/DL 12.1 G/DL (12.0-16.0) (12.0-16.0) Oxygen Delivery Device SEE COMMENTS VENTILATOR Blood Gas Inspired Oxygen 80 % 90 % Sodium Level 156 MEQ/L (136-145) Potassium Level 4.2 MEQ/L (3.5-5.1) Chloride Level 116 MEQ/L (98-107) Carbon Dioxide Level 31.0 MEQ/L (21.0-32.0) Anion Gap 9 MEQ/L (5-15) Blood Urea Nitrogen 59 MG/DL (7-18) Creatinine 1.44 MG/DL (0.50-1.00) Estimat Glomerular Filtration 36 ML/MIN (>89) Rate Random Glucose 307 MG/DL (74-106) Calcium Level 8.0 MG/DL (8.5-10.1) Blood Gas Ventilator Setting PC/AC White Blood Count 8.3 TH/MM3 (4.0-11.0) Red Blood Count 2.41 MIL/MM3 (4.00-5.30) Hemoglobin 8.1 GM/DL (11.6-15.3) Hematocrit 25.5 % (35.0-46.0) Mean Corpuscular Volume 106.0 FL (80.0-100.0) Mean Corpuscular Hemoglobin 33.6 PG (27.0-34.0) Mean Corpuscular Hemoglobin 31.7 % Concent (32.0-36.0) Red Cell Distribution Width 15.3 % (11.6-17.2) Platelet Count 40 TH/MM3 (150-450) Mean Platelet Volume 12.3 FL (7.0-11.0) Neutrophils (%) (Auto) 96.5 % (16.0-70.0) Lymphocytes (%) (Auto) 2.7 % (9.0-44.0) Monocytes (%) (Auto) 0.7 % (0.0-8.0) Eosinophils (%) (Auto) 0.0 % (0.0-4.0) Basophils (%) (Auto) 0.1 % (0.0-2.0) Neutrophils # (Auto) 8.0 TH/MM3 (1.8-7.7) Lymphocytes # (Auto) 0.2 TH/MM3 (1.0-4.8) Monocytes # (Auto) 0.1 TH/MM3 (0-0.9) Eosinophils # (Auto) 0.0 TH/MM3 (0-0.4) Basophils # (Auto) 0.0 TH/MM3 (0-0.2) CBC Comment AUTO DIFF Differential Comment AUTO DIFF CONFIRMED Platelet Estimate LOW (NORMAL) Platelet Morphology Comment NORMAL (NORMAL) Tear Drop Cells 1+ (NORMAL) Test 11/26/16 08:30 Sodium Level 147 MEQ/L (136-145) Potassium Level 2.9 MEQ/L (3.5-5.1) Chloride Level 109 MEQ/L (98-107) Carbon Dioxide Level 30.8 MEQ/L (21.0-32.0) Anion Gap 7 MEQ/L (5-15) Blood Urea Nitrogen 60 MG/DL (7-18) Creatinine 1.55 MG/DL (0.50-1.00) Estimat Glomerular Filtration 33 ML/MIN (>89) Rate Random Glucose 268 MG/DL (74-106) Calcium Level 7.1 MG/DL (8.5-10.1) Protein Corrected Calcium 8.2 MG/DL (8.5-10.1) Magnesium Level 2.1 MG/DL (1.5-2.5) Total Bilirubin 0.2 MG/DL (0.2-1.0) Aspartate Amino Transf 79 U/L (15-37) (AST/SGOT) Alanine Aminotransferase 420 U/L (10-53) (ALT/SGPT) Alkaline Phosphatase 143 U/L (45-117) Total Protein 5.1 GM/DL (6.4-8.2) Albumin 1.5 GM/DL (3.4-5.0) Result Diagram: 11/26/16 0640 11/26/16 0830 Procedures * 11/24/16 chest tube placement * 11/23/16 right femoral central line placement * 11/23/16 emergency right pigtail catheter placement due to tension pneumothorax * 11/19/16 fiber-optic bronchoscopy * 11/19/16 Re- intubated * 11/16/16 - extubated * 11/06/16 intubated . Assessment and Plan Disease Oriented Problem List: (1) T1 vertebral fracture (2) C7 cervical fracture (3) Fall (4) Pneumonia (5) Sepsis (6) Atrial fibrillation and flutter (7) Fever (8) COPD (chronic obstructive pulmonary disease) (9) ARDS (adult respiratory distress syndrome) (10) Acute respiratory failure (11) Pulmonary fibrosis (12) Dyspnea (13) Leukocytosis (14) Severe protein-calorie malnutrition Symptom Scale: (1) Severe protein-calorie malnutrition 0-10 Scale: Unable to quantify Comment: Albumin 2.3 (2) Pain 0-10 Scale: Unable to quantify (3) Dyspnea 0-10 Scale: Unable to quantify Comment: on mech vent. Pertinent Non-Medical Issues Psychosocial: . Spiritual: Spiritism adolfo. Legal: Living will in chart dated 2013, names spouse Luis Enrique Anne as primary designated healthcare surrogate and Mao Elva as alternate surrogate. Ethical issues impacting care: no known concerns at this time. . Important Contacts * Luis Enrique Anne, spouse/HCS: [phone] * Mao Stevenson, alternate HCS: [phone] . Prognosis Discussed with Dr. Marquez, overall prognosis appears poor. May not be able to wean . Code Status: No Code Plan * Living will in chart dated 2013, names spouse Luis Enrique Rodríguez as primary designated healthcare surrogate and Mao Stevenson as alternate surrogate. * NO CODE * Spoke with .Met with Dr. Rodríguez and his son at bedside. He again verbalizes his would not want to live like this and he wants to honor her wishes to allow to occur naturally. He knows we are "just prolonging her dying now." Anticipatory guidance provided regarding withdrawal of life support. He does not want her to suffer any longer. He requests we take into account her chronic pain and likely higher tolerance of medications when ordering comfort meds. He declines [employer] crop manager visit, as they visited earlier today. Declines hospice. * Discussed with Dr. Da Silva and nurse. * SYMPTOMS: dyspnea: labored respiration on mech vent. Sedated. Nimbex restarted per nurse. pain: potential sources include recent falls, spinal injury , chest tubes, intubation etc. sedated. * Exhibits B & C signed, on chart. * Orders written by Dr. Da Silva for transition to comfort. * Palliative care will continue to follow. . Attestation To help prompt me to consider important information that might be impacting today's encounter and assessment, information from prior notes written by myself or my colleagues may have been "brought forward" into today's note. My signature on this note, however, is an attestation that I personally performed the exam, history, and/or decision-making noted today, and, unless otherwise indicated, the interactions with patient, family, and staff as well as the review of records all occurred today. I also attest that the listed assessment and stated plan reflect my best clinical judgment today based on the combination of historical information, prior notes, and today's exam/ interactions. When time spent is documented, it refers only to time spent today by the signer, or if indicated, combined time spent today by collaborating physician/nurse practitioner. SUHAS FUENTES Nov 26, 2016 18:42
--- NOTE | 2016-11-26 19:24 | DEATH SUM ---
Pronouncement Date Pronounced : Nov 26, 2016 Time Of : 19:01 Pronouncement Called to pronounce of patient. Identified patient as Jeanne Rodríguez with wrist band MR# [id number]. Patient with no cardiac activity in 2 separate leads and no palpable/auscible cardiac activity. Patient with no spontaneous respirations, no corneal reflex or response to painful stimuli. Pupils fixed and dilated. Preliminary Cause of : Cardiac arrest Rome Da Silva MD Nov 26, 2016 19:24
[2016-11-26] MEDS ORDERED: fentaNYL CITRATE 2500 MCG/50 ML VIAL IV ONE (20:00)
--- NOTE | 2017-01-10 15:01 | HHI.DS ---
Summary Note Date of : Nov 26, 2016 Time Of : 1900 Admission Date Nov 05, 2016 at 01:02 Admitting Diagnosis bilateral pneumonia, sepsis, urinary retention, hydronephrosis Diagnosis at Time of : Procedures Right 20F chest tube placement Brief History The pt is a 71-year-old female who previously presented to the emergency department with pain in her neck and back following a fall that occurred at her home. She was found to have C7/ T1 fractures. She was evaluated by neurosurgery and was placed in a cervical collar. She was discharged home as the pt did not want home health nursing or home health physical therapy. The pt developed an inability to ambulate at home. She had a walker but was unable to use it as she could in the hospital. She fell down twice and the neighbors had to help the pt off of the floor. She also had urinary incontinence. The pt's also stated that the pt has been more confused at home. The pt was brought to the ED for further evaluation. The pt complains of 7/10 pain in her neck. She denies any shortness of breath or a productive cough. She is able to state her name and she knows Aubrey will be the next president but she thought the year was 2011. Imaging Last Impressions Chest X-Ray 11/22/16 0600 Signed Impressions: Service Date/Time: Tuesday, November 22, 2016 06:00 - CONCLUSION: 1. Stable chest x-ray with bilateral mid and lower lung zone airspace consolidation. 2. Stable pneumomediastinum and chest wall soft tissue air. No pneumothorax is appreciated. Jimmy Lara MD Chest CT 11/21/16 0000 Signed Impressions: Service Date/Time: Monday, November 21, 2016 16:14 - CONCLUSION: 1. Improvement of previous diffuse groundglass opacity. Probable developing fibrotic changes at the bases with some traction bronchiectasis. 2. Extensive air leak with pneumomediastinum and subcutaneous emphysema. There is also some loculated air at the right lung base that is new since the prior examination. This could represent a pneumatocele measuring 4.5 cm. Matt Wolf MD Abdomen X-Ray 11/19/16 0000 Signed Impressions: Service Date/Time: November 22:26 - CONCLUSION: Nasogastric tube has its tip near the gastric outlet. Nonobstructive bowel gas pattern. Jimmy Hoffmann MD Abdomen CT 11/19/16 0000 Signed Impressions: Service Date/Time: Sunday, November 20, 2016 04:24 - CONCLUSION: 1. No acute finding is identified within the abdomen on this noncontrast examination. 2. There is severe airspace consolidation/groundglass attenuation in both lung bases. Pneumomediastinum is present and there is a small right pneumothorax. Jimmy Lara MD Upper Extremity Ultrasound 11/11/16 0000 Signed Impressions: Service Date/Time: Friday, November 11, 2016 21:51 - CONCLUSION: 1. No evidence of DVT. 2. Focal superficial thrombosis involving the distal right cephalic vein. Roland Maier MD Lower Extremity Ultrasound 11/11/16 0000 Signed Impressions: Service Date/Time: Friday, November 11, 2016 21:22 - CONCLUSION: Negative exam with no evidence of deep venous thrombosis. Rex Corcoran MD Liver Ultrasound 11/09/16 0000 Signed Impressions: Service Date/Time: Wednesday, November 09, 2016 08:03 - CONCLUSION: 1. No acute abnormality. 2. Prior cholecystectomy. Common bile duct is within the normal range in terms of size for patient status post cholecystectomy. 3. Dystrophic calcification involving the right lobe of the liver. Scott Mittal Jr., MD Thoracic Spine MRI 11/07/16 0000 Signed Impressions: Service Date/Time: Monday, November 07, 2016 10:23 - CONCLUSION: 1. There is a fracture of the T1 vertebral body and T5 vertebral body. No significant height loss is present and there is no retropulsion of any fracture fragment. No canal stenosis is present. 2. Please refer to today's chest CT examination report for description of the pulmonary findings. Jimmy Lara MD Renal Ultrasound 11/06/16 0000 Signed Impressions: Service Date/Time: Sunday, November 06, 2016 22:24 - CONCLUSION: Probable complicated cyst midpole left kidney measuring 2.0 cm. Otherwise negative exam. No evidence of hydronephrosis. Scott Cantor MD Head CT 11/04/16 2326 Signed Impressions: Service Date/Time: Friday, November 04, 2016 23:45 - CONCLUSION: No acute intracranial findings. Jimmy Felton MD Abdomen/Pelvis CT 11/04/16 Signed Impressions: Service Date/Time: Friday, November 04, 2016 23:48 - CONCLUSION: Markedly dilated urinary bladder with mild-moderate bilateral hydronephrosis Jimmy Felton MD Last Impressions Chest X-Ray 11/15/16 Signed Impressions: Service Date/Time: Tuesday, November 15, 2016 11:02 - CONCLUSION: No significant interval change. Roland Maier MD Upper Extremity Ultrasound 11/11/16 Signed Impressions: Service Date/Time: Friday, November 11, 2016 21:51 - CONCLUSION: 1. No evidence of DVT. 2. Focal superficial thrombosis involving the distal right cephalic vein. Roland Maier MD Lower Extremity Ultrasound 11/11/16 0000 Signed Impressions: Service Date/Time: Friday, November 11, 2016 21:22 - CONCLUSION: Negative exam with no evidence of deep venous thrombosis. Rex Corcoran MD Liver Ultrasound 11/09/16 Signed Impressions: Service Date/Time: Wednesday, November 09, 2016 08:03 - CONCLUSION: 1. No acute abnormality. 2. Prior cholecystectomy. Common bile duct is within the normal range in terms of size for patient status post cholecystectomy. 3. Dystrophic calcification involving the right lobe of the liver. Scott Mittal Jr., MD Thoracic Spine MRI 11/07/16 0000 Signed Impressions: Service Date/Time: Monday, November 07, 2016 10:23 - CONCLUSION: 1. There is a fracture of the T1 vertebral body and T5 vertebral body. No significant height loss is present and there is no retropulsion of any fracture fragment. No canal stenosis is present. 2. Please refer to today's chest CT examination report for description of the pulmonary findings. Jimmy Lara MD Renal Ultrasound 11/06/16 0000 Signed Impressions: Service Date/Time: Sunday, November 06, 2016 22:24 - CONCLUSION: Probable complicated cyst midpole left kidney measuring 2.0 cm. Otherwise negative exam. No evidence of hydronephrosis. Scott Cantor MD Chest CT 11/06/16 0000 Signed Impressions: Service Date/Time: Monday, November 07, 2016 10:50 - CONCLUSION: Severe diffuse geographic areas of groundglass attenuation bilaterally with trace bilateral pleural effusions. The pattern is nonspecific but can be seen with infection and ARDS among other etiologies. Jimmy Lara MD Head CT 11/04/16 2326 Signed Impressions: Service Date/Time: Friday, November 04, 2016 23:45 - CONCLUSION: No acute intracranial findings. Jimmy Felton MD Abdomen/Pelvis CT 11/04/16 0000 Signed Impressions: Service Date/Time: Friday, November 04, 2016 23:48 - CONCLUSION: Markedly dilated urinary bladder with mild-moderate bilateral hydronephrosis Jimmy Felton MD Last Impressions Chest X-Ray 11/12/16 0600 Signed Impressions: Service Date/Time: October 02:40 - CONCLUSION: No significant interval change. Roland Maier MD Upper Extremity Ultrasound 11/11/16 0000 Signed Impressions: Service Date/Time: Friday, November 11, 2016 21:51 - CONCLUSION: 1. No evidence of DVT. 2. Focal superficial thrombosis involving the distal right cephalic vein. Roland Maier MD Lower Extremity Ultrasound 11/11/16 0000 Signed Impressions: Service Date/Time: Friday, November 11, 2016 21:22 - CONCLUSION: Negative exam with no evidence of deep venous thrombosis. Rex Corcoran MD Liver Ultrasound 11/09/16 0000 Signed Impressions: Service Date/Time: Wednesday, November 09, 2016 08:03 - CONCLUSION: 1. No acute abnormality. 2. Prior cholecystectomy. Common bile duct is within the normal range in terms of size for patient status post cholecystectomy. 3. Dystrophic calcification involving the right lobe of the liver. Scott Mittal Jr., MD Thoracic Spine MRI 11/07/16 0000 Signed Impressions: Service Date/Time: Monday, November 07, 2016 10:23 - CONCLUSION: 1. There is a fracture of the T1 vertebral body and T5 vertebral body. No significant height loss is present and there is no retropulsion of any fracture fragment. No canal stenosis is present. 2. Please refer to today's chest CT examination report for description of the pulmonary findings. Jimmy Lara MD Renal Ultrasound 11/06/16 0000 Signed Impressions: Service Date/Time: Sunday, November 06, 2016 22:24 - CONCLUSION: Probable complicated cyst midpole left kidney measuring 2.0 cm. Otherwise negative exam. No evidence of hydronephrosis. Scott Cantor MD Chest CT 11/06/16 0000 Signed Impressions: Service Date/Time: Monday, November 07, 2016 10:50 - CONCLUSION: Severe diffuse geographic areas of groundglass attenuation bilaterally with trace bilateral pleural effusions. The pattern is nonspecific but can be seen with infection and ARDS among other etiologies. Jimmy Lara MD Head CT 11/04/16 2326 Signed Impressions: Service Date/Time: Friday, November 04, 2016 23:45 - CONCLUSION: No acute intracranial findings. Jimmy Felton MD Abdomen/Pelvis CT 11/04/16 0000 Signed Impressions: Service Date/Time: Friday, November 04, 2016 23:48 - CONCLUSION: Markedly dilated urinary bladder with mild-moderate bilateral hydronephrosis Jimmy Felton MD Last Impressions Chest X-Ray 11/12/16 0600 Signed Impressions: Service Date/Time: October 02:40 - CONCLUSION: No significant interval change. Roland Maier MD Upper Extremity Ultrasound 11/11/16 0000 Signed Impressions: Service Date/Time: Friday, November 11, 2016 21:51 - CONCLUSION: 1. No evidence of DVT. 2. Focal superficial thrombosis involving the distal right cephalic vein. Roland Maier MD Lower Extremity Ultrasound 11/11/16 0000 Signed Impressions: Service Date/Time: Friday, November 11, 2016 21:22 - CONCLUSION: Negative exam with no evidence of deep venous thrombosis. Rex Corcoran MD Liver Ultrasound 11/09/16 0000 Signed Impressions: Service Date/Time: Wednesday, November 09, 2016 08:03 - CONCLUSION: 1. No acute abnormality. 2. Prior cholecystectomy. Common bile duct is within the normal range in terms of size for patient status post cholecystectomy. 3. Dystrophic calcification involving the right lobe of the liver. Scott Mittal Jr., MD Thoracic Spine MRI 11/07/16 0000 Signed Impressions: Service Date/Time: Monday, November 07, 2016 10:23 - CONCLUSION: 1. There is a fracture of the T1 vertebral body and T5 vertebral body. No significant height loss is present and there is no retropulsion of any fracture fragment. No canal stenosis is present. 2. Please refer to today's chest CT examination report for description of the pulmonary findings. Jimmy Lara MD Renal Ultrasound 11/06/16 0000 Signed Impressions: Service Date/Time: Sunday, November 06, 2016 22:24 - CONCLUSION: Probable complicated cyst midpole left kidney measuring 2.0 cm. Otherwise negative exam. No evidence of hydronephrosis. Scott Cantor MD Chest CT 11/06/16 0000 Signed Impressions: Service Date/Time: Monday, November 07, 2016 10:50 - CONCLUSION: Severe diffuse geographic areas of groundglass attenuation bilaterally with trace bilateral pleural effusions. The pattern is nonspecific but can be seen with infection and ARDS among other etiologies. Jimmy Lara MD Head CT 11/04/16 2326 Signed Impressions: Service Date/Time: Friday, November 04, 2016 23:45 - CONCLUSION: No acute intracranial findings. Jimmy Felton MD Abdomen/Pelvis CT 11/04/16 0000 Signed Impressions: Service Date/Time: Friday, November 04, 2016 23:48 - CONCLUSION: Markedly dilated urinary bladder with mild-moderate bilateral hydronephrosis Jimmy Felton MD Last Impressions Liver Ultrasound 11/09/16 0000 Signed Impressions: Service Date/Time: Wednesday, November 09, 2016 08:03 - CONCLUSION: 1. No acute abnormality. 2. Prior cholecystectomy. Common bile duct is within the normal range in terms of size for patient status post cholecystectomy. 3. Dystrophic calcification involving the right lobe of the liver. Scott Mittal Jr., MD Chest X-Ray 11/09/16 0000 Signed Impressions: Service Date/Time: Wednesday, November 09, 2016 03:36 - CONCLUSION: Mild improvement in the bilateral interstitial infiltrates. Roland Maier MD Thoracic Spine MRI 11/07/16 0000 Signed Impressions: Service Date/Time: Monday, November 07, 2016 10:23 - CONCLUSION: 1. There is a fracture of the T1 vertebral body and T5 vertebral body. No significant height loss is present and there is no retropulsion of any fracture fragment. No canal stenosis is present. 2. Please refer to today's chest CT examination report for description of the pulmonary findings. Jimmy Lara MD Renal Ultrasound 11/06/16 0000 Signed Impressions: Service Date/Time: Sunday, November 06, 2016 22:24 - CONCLUSION: Probable complicated cyst midpole left kidney measuring 2.0 cm. Otherwise negative exam. No evidence of hydronephrosis. Scott Cantor MD Chest CT 11/06/16 0000 Signed Impressions: Service Date/Time: Monday, November 07, 2016 10:50 - CONCLUSION: Severe diffuse geographic areas of groundglass attenuation bilaterally with trace bilateral pleural effusions. The pattern is nonspecific but can be seen with infection and ARDS among other etiologies. Jimmy Lara MD Head CT 11/04/16 2326 Signed Impressions: Service Date/Time: Friday, November 04, 2016 23:45 - CONCLUSION: No acute intracranial findings. Jimmy Felton MD Abdomen/Pelvis CT 11/04/16 0000 Signed Impressions: Service Date/Time: Friday, November 04, 2016 23:48 - CONCLUSION: Markedly dilated urinary bladder with mild-moderate bilateral hydronephrosis Jimmy Felton MD Last Impressions Chest X-Ray 11/07/16 0600 Signed Impressions: Service Date/Time: Monday, November 07, 2016 05:03 - CONCLUSION: Persistent and stable bilateral air space opacities in the medial lungs. Scott Cantor MD Thoracic Spine MRI 11/07/16 0000 Signed Impressions: Service Date/Time: Monday, November 07, 2016 10:23 - CONCLUSION: 1. There is a fracture of the T1 vertebral body and T5 vertebral body. No significant height loss is present and there is no retropulsion of any fracture fragment. No canal stenosis is present. 2. Please refer to today's chest CT examination report for description of the pulmonary findings. Jimmy Lara MD Renal Ultrasound 11/06/16 0000 Signed Impressions: Service Date/Time: Sunday, November 06, 2016 22:24 - CONCLUSION: Probable complicated cyst midpole left kidney measuring 2.0 cm. Otherwise negative exam. No evidence of hydronephrosis. Scott Cantor MD Chest CT 11/06/16 0000 Signed Impressions: Service Date/Time: Monday, November 07, 2016 10:50 - CONCLUSION: Severe diffuse geographic areas of groundglass attenuation bilaterally with trace bilateral pleural effusions. The pattern is nonspecific but can be seen with infection and ARDS among other etiologies. Jimmy Lara MD Head CT 11/04/16 2326 Signed Impressions: Service Date/Time: Friday, November 04, 2016 23:45 - CONCLUSION: No acute intracranial findings. Jimmy Felton MD Abdomen/Pelvis CT 11/04/16 0000 Signed Impressions: Service Date/Time: Friday, November 04, 2016 23:48 - CONCLUSION: Markedly dilated urinary bladder with mild-moderate bilateral hydronephrosis Jimmy Felton MD Hospital Course Patient is a 71-year-old female with history of pulmonary fibrosis, asthma, probable COPD on home oxygen who had a recent fall at home and sustained C7/ T1 fractures. She was evaluated by neurosurgery and conservatively managed and placed in a cervical collar. She was discharged home on 11/04/16. The pt developed inability to ambulate at home and also had urinary retention. Patient 's also noticed that she had been more confused. ER workup included a CT of the head which was negative, CT of the abdomen pelvis showed markedly distended bladder with mild to moderate hydronephrosis. Sanders catheter was inserted. Chest x-ray showed increasing bilateral infiltrates. Patient was admitted to the hospitalist service, on broad-spectrum antibiotics with Zosyn and vancomycin, breathing treatments. Neurology Dr. Xiong was also consulted Today was noted to have increasing shortness of breath today, tachypnea and hypoxia requiring a partial nonrebreather. Also noted to have A flutter with rapid ventricular response. Cardizem boluses 2 was given on Cardizem infusion was started. Because of her worsening respiratory failure patient was moved to the ICU. Critical care medicine consulted and I immediately evaluated the patient. She is in moderate distress on partial nonrebreather breathing 35-40/ m. Chest exam shows bilateral crackles and wheezes. I have added Solu-Medrol and scheduled breathing treatments and ordered BiPAP 10 over 5. I explained to the patient and the that patient may need endotracheal intubation and mechanical ventilation if she is not improving with BiPAP. 11/07 Patient is sedated with Diprivan and intubated. Afebrile. On Cardizem drip 5mg/hr, for MRI spine and CT thorax today. 11/08 Patient is sedated with Fentnayl and intubated. Afebrile. Renal function worse today with Cr: 1.65 from 1.15 11/09 Tmax 102.2. The patient's sputum culture grew preliminarily budding yeast with pseudohyphae. Diflucan initiated yesterday white count trending down. Lasix discontinued yesterday secondary to elevated creatinine level. 11/10 Afebrile. Able to wean oxygenation to FiO2 of 40% today. CPAP trials plan for today. The patient was noted to be hypernatremic free water flushes were added to her tube feedings. Creatinine slightly improved today. PT consulted Functional maintenance with specific requirements to be referred to neurosurgery for restrictions of any type of activities regarding functional maintenance. 11/11 Tmax 101.7. Patient continues to have persistent fevers, on antibiotic therapy, ID consulted,Dr Phan, appreciate recommendations. The patient has elevations in heart rate with activity/movement, received 2 doses of metoprolol with some diminution, from 160 to 90's yesterday. Overnight the patient's heart rate remained in the 120's. CPAP trials were initiated yesterday the patient was able to maintain the trial for approximately 4 hours. 11/12 Persistent fever last 24 hours, patient placed on a cooling blanket. Antibiotics adjusted per ID, Dr. Phan. Ultrasound Doppler obtained bilateral upper and lower extremities results superficial thrombus white distal cephalic vein. The patient was maintained on CPAP approximately 9 hours yesterday. Fentanyl infusion resumed today, patient complained of pain. Scheduled by mouth narcotics initiated. 11/13 CPAP trials lasted 11 hours. Patient continues to have fevers on a cooling blanket, Dr. Phan managing antibiotic regimen. Patient can continuously complain of pain, scheduled pain meds multimodal therapy approach initiated. 11/14 Was on CPAP 10/8 FiO2 55% for several hours and then terminated due to desaturation. WBC up to 22.9 without fever. No significant respiratory secretions. Had diarrhea yesterday but now RN reports no BM today after holding bowel regimen. Abdomen benign and tolerating tube feeds. Check for C diff if has a loose stool. Panculture sent. updated at bedside. Has no invasive lines. 11/15 Diuresed net negative 1 L last shift following lasix. Creatinine downtrend to 1.19. Sodium down to 150. Received 6 am dose of Lasix. FiO2 weaned to 45%. WBC down 17. Afebrile. Placed on CPAP 5/5 and TV 550 and RSBI 30s. Sats 89-92% on 50%. 11/16 Tmax in 100.1. The patient continues today on CPAP trial PaO2 65 on FiO2 of 55%. The patient has been diuresed over the last several days, sodium is down trending now 145 tube feeds are off, will plan for a trial of extubation. As discussed with the Dr. Rodríguez that the patient possibly will need tracheostomy. Dr. Aguilera consulted for possible tracheostomy. 11/17 Afebrile. The patient was extubated yesterday afternoon .The patient tolerated BiPAP overnight, maintaining O2 sat 9294%, on FiO2 of 50%. Plan to transition to high flow nasal cannula if tolerated. 11/18 The patient tolerated-flow nasal cannula for the last 24 hours. Attempts at weaning FiO2 less than 65% unsuccessful at this point. O2 sat 8892%. Patient unable to perform incentive spirometry at this time. 11/19 The patient had respiratory decompensation this afternoon, requiring emergent intubation. The patient also underwent fiberoptic bronchoscopy which was unremarkable, and obtained BAL specimens as she continues to have fevers. 11/20 Tmax 100.0. The patient required emergent intubation yesterday afternoon secondary to hypoxemic/hypercapnic respiratory failure. A BAL was performed to obtain specimens secondary to elevation in white count. BAL revealed staph aureus. The process of weaning FiO2 is currently underway, FiO2 currently 65%. The patient complained of abdominal pain last evening, CT scan obtained. 11/21 This afternoon patient experiencing increased O2 requirements to maintain a PaO2 of 60. Chest x-ray reviewed noting possible pneumomediastinum. PEEP 5, stat CT chest pending. CT of the abdomen benign, patient tolerating tube feeds.Pt transported to CT scanner PEEP 8 required for adequate oxygenation. Returned from CT scanner, returned to PEEP of 5, FIO2 90%. 11/22 The patient was maintained on an FiO2 of 90% overnight, O2 sats remained 92 94%. This a.m. FiO2 was decreased to 85%, P/F Ratio 84. Repeat chest x-ray revealed stable pneumomediastinum CT surgery was consulted yesterday, appreciate recommendations. Bronchial washings resulted in mold, and moderate staph aureus growth. 11/23 Tmax 99.9. Bronchial washings, preliminary diagnosis Aspergillus. The patient was started on voriconazole. Repeat chest x-ray resulting decreasing air in mediastinum and less emphysematous changes and left chest. The patient continues on PRBC ventilator mode, FiO2 80% all night, unable to wean. 11/23 (evening) Difficult to ventilate, with high PEEP pressures. Emergency chest x-ray done stat showed a large right pneumothorax with tension. I prepared for emergency chest tube placement, while I was getting the equipment ready at the bedside, patient lost blood pressure became bradycardic and then developed asystolic arrest. ACLS protocol followed with immediate CPR, 2 rounds of epinephrine and 2 rounds of bicarbonate. At the same time I did emergency needle decompression of the right lateral chest and place an emergency 10 Hungarian pigtail catheter. Once the pigtail catheter was to suction, patient regained pulse and blood pressure back. I also placed an emergency right femoral central line. Patient will be continued on Levophed infusion. 11/24 Persistent pneumothorax, 20 Hungarian right chest tube placed this a.m. with reexpansion. The patient remains on Flolan, 100% FiO2 to maintain an O2 sat of 90%. The patient remains paralyzed and sedated, unable to place on PRVC ventilator settings. The patient is maintained on pressure control ventilator settings. Palliative care has been consulted to discuss goals of care with family. 11/25: Second chest tube placed yesterday afternoon for persistent right moderate sized pneumo. On pressure control vent settings with tidal volume 400 of 425. Severe CO2 retention with acidosis-pH 7 PCO2 120. I have increased inspiratory pressure to 22, increased rate to 24 from 20, and also reduced the PEEP to 5 from, 7 and reduced I time to 1 from 1.3. Chest x-ray shows severe bilateral infiltrates, and tiny apical pneumothorax 11/26: no significant improvements. continues with very poor prognosis on maximal ventilatory settings. tidal volumes worsening to 250cc this AM with similar peak pressures 36. I had a discussion with the today. I do not think this is a survivable illness given severity of chronic disease on top of acute insult. After multiple discussions with the and after a protracted acute illness with no clinical improvements, the requested a transition to comfort measures. The patient was made comfortable and terminally extubated with her at bedside and peacefully at 19:01 on 11/26. Rome Da Silva MD Jan 10, 2017 15:01
== END 2016-11-26 21:30 | disposition expired | DRG 870 ==
LOC: NEPE 21:40 → NEDA 11-05 01:02 → HCIS 11-05 02:25 → HCIN 11-05 05:57 → N03B 11-06 11:30
PROVIDERS: ADMIT Internal Medicine; ATTEND Internal Medicine
PROC: 0BH17EZ Insertion of Endotracheal Airway into Trachea, Via Natural or Artificial Opening (ICD-10-PCS; principal; 2016-11-06)
PROC: 5A1955Z Respiratory Ventilation, Greater than 96 Consecutive Hours (ICD-10-PCS; 2016-11-06)
PROC: 5A09457 Assistance with Respiratory Ventilation, 24-96 Consecutive Hours, Continuous Positive Airway Pressure (ICD-10-PCS; 2016-11-16)
PROC: 0BH18EZ Insertion of Endotracheal Airway into Trachea, Via Natural or Artificial Opening Endoscopic (ICD-10-PCS; 2016-11-19)
PROC: 5A1955Z Respiratory Ventilation, Greater than 96 Consecutive Hours (ICD-10-PCS; 2016-11-19)
PROC: 0B978ZX Drainage of Left Main Bronchus, Via Natural or Artificial Opening Endoscopic, Diagnostic (ICD-10-PCS; 2016-11-19)
PROC: 0B938ZX Drainage of Right Main Bronchus, Via Natural or Artificial Opening Endoscopic, Diagnostic (ICD-10-PCS; 2016-11-19)
PROC: 06HM33Z Insertion of Infusion Device into Right Femoral Vein, Percutaneous Approach (ICD-10-PCS; 2016-11-23)
PROC: 0W9930Z Drainage of Right Pleural Cavity with Drainage Device, Percutaneous Approach (ICD-10-PCS; 2016-11-23)
PROC: 0W9930Z Drainage of Right Pleural Cavity with Drainage Device, Percutaneous Approach (ICD-10-PCS; 2016-11-24)
PROC: 02HV33Z Insertion of Infusion Device into Superior Vena Cava, Percutaneous Approach (ICD-10-PCS; 2016-11-25)
DX: A41.9 Sepsis, unspecified organism (principal); J96.01 Acute respiratory failure with hypoxia; E43 Unspecified severe protein-calorie malnutrition; J93.0 Spontaneous tension pneumothorax; G62.81 Critical illness polyneuropathy; G93.41 Metabolic encephalopathy; J18.9 Pneumonia, unspecified organism; B44.1 Other pulmonary aspergillosis; J98.2 Interstitial emphysema; J80 Acute respiratory distress syndrome; J44.1 Chronic obstructive pulmonary disease with (acute) exacerbation; E87.2 Acidosis; I48.92 Unspecified atrial flutter; N13.30 Unspecified hydronephrosis; E87.0 Hyperosmolality and hypernatremia; I82.611 Acute embolism and thrombosis of superficial veins of right upper extremity; J84.10 Pulmonary fibrosis, unspecified; J45.909 Unspecified asthma, uncomplicated; R53.1 Weakness; R32 Unspecified urinary incontinence; R33.8 Other retention of urine; E87.6 Hypokalemia; E87.70 Fluid overload, unspecified; E83.119 Hemochromatosis, unspecified; I48.91 Unspecified atrial fibrillation; R73.9 Hyperglycemia, unspecified; S12.600D Unspecified displaced fracture of seventh cervical vertebra, subsequent encounter for fracture with routine healing; S22.019D Unspecified fracture of first thoracic vertebra, subsequent encounter for fracture with routine healing; Z91.81 History of falling; Z99.81 Dependence on supplemental oxygen; R29.6 Repeated falls; Z51.5 Encounter for palliative care; G89.4 Chronic pain syndrome; B95.8 Unspecified staphylococcus as the cause of diseases classified elsewhere; W01.0XXD Fall on same level from slipping, tripping and stumbling without subsequent striking against object, subsequent encounter; Z68.27 Body mass index [BMI] 27.0-27.9, adult
CPT/HCPCS: 31500; 31624; 32551; 36556; 36600; 51702; 70450; 71010; 71250; 72146; 74000; 74150; 74176; 76705; 76775; 76937; 80048; 80053; 80202; 81001; 82140; 82306; 82330; 82550; 82607; 82805; 82948; 83605; 83735; 83880; 84100; 84439; 84443; 84481; 84484; 85007; 85025; 85027; 85610; 85652; 85730; 86140; 87040; 87070; 87086; 87205; 87493; 87641; 92950; 93005; 93306; 93970; 94002; 94003; 94150; 94640; 94664; 94799; C9113; J0171; J0360; J0456; J0461; J0610; J0692; J1160; J1325; J1450; J1644; J1815; J1817; J1940; J2020; J2060; J2248; J2250; J2270; J2405; J2543; J2920; J2930; J3010; J3370; J3465; J3475; J3480; J7030; J7040; J7050; J7070; J7120; J7626; P9047